=== PATIENT | female | born 1950 | race Caucasian/White ===

== ENCOUNTER 2017-03-13 13:05 | Outpatient (RCR) | payer MEDICARE, SELFPAY ==
[2017-03-13 13:37] VITALS: BP 109/64; PULSE 71; RESP 18; TEMP 36.5
--- NOTE | 2017-03-13 15:35 | PCM.WC.PN ---
(1) Chronic ulcer of left foot with fat layer exposed Status: Chronic Current Visit: Yes Code(s): L97.522 - Non-pressure chronic ulcer of other part of left foot with fat layer exposed (2) Hammer toe of left foot Status: Chronic Current Visit: Yes Code(s): M20.42 - Other hammer toe(s) (acquired), left foot (3) Type 2 diabetes mellitus with diabetic polyneuropathy Status: Chronic Current Visit: Yes Code(s): E11.42 - Type 2 diabetes mellitus with diabetic polyneuropathy (4) Peripheral arterial occlusive disease Status: Chronic Current Visit: Yes Code(s): I77.9 - Disorder of arteries and arterioles, unspecified Type of Wound Date of Service: 03/13/17 Chief Complaint: Left foot ulcers History of Wound: This 67-year-old female with significant past medical history of neuropathy, peripheral vascular disease, history of seizure disorder, on chronic anticoagulation, cerebrovascular disease, hypertension, COPD, history of tobacco use, diabetes, dyslipidemia continues to complain of painful left great toe and fourth toe ulcers. The onset was approximately 3 months ago. This started as a callus and she put a corn pad on. She is applied Santyl and bacitracin to the wound. She is known to Dr. Burgos who is performing some screening tests within the next 3 weeks and intervention is planned for April 03. She has extremely limited perfusion to the foot and has continued ischemic pain that is only partially relieved by dangling the foot. She denies fever, chill, nausea, odor, increased redness to the foot. Medication list albuterol, metoprolol, Pradaxa, gabapentin, trazodone, montelukast, Pulmicort, Ventolin, DuoNeb, prednisone, calcium carbonate, Tylenol, hydralazine, lisinopril, lorazepam, nystatin powder, oxycodone, pantoprazole, MiraLAX. Allergies: Levofloxacin, pineapple, pregabalin, sertraline, Cymbalta, Flexeril, sulfa. Hospitalization/surgical history: Femoral artery surgery with Dr. Velasqeuz, gastrointestinal surgery, appendectomy. Family history diabetes, heart disease, hypertension, lung disease, seizure, stroke. Review of systems: She denies chest pain, calf pain. She reports wound formation, rest paresthesias, claudication, rest pain, skin thickening Progress of Wound: Stable - Physical Exam Vital Signs Temp Pulse Resp BP 97.7 F L 71 18 109/64 03/13/17 13:37 03/13/17 13:37 03/13/17 13:37 03/13/17 13:37 General: Alert, Oriented x3, Cooperative HEENT: Atraumatic Extremities: No cyanosis, No edema, No Calf Tenderness - Negative Shoemaker sign bilateral, Diminished Peripheral Pulses - Nonpalpable pedal pulses bilateral DP and PT, Tenderness - Pain with fourth toe and hallux wound palpation. Diffuse tenderness on palpation to the left forefoot without crepitation. The compartments of bilateral lower extremities remain soft., - - Capillary refill time is less than 4 seconds to all digits of the left foot. Skin: Ulcer/ Wound - No purulence, no erythema, no streaking, no acute infection, no odor left foot, - - The skin is hairless and atrophic. The hallux ulcer site is an eschar that is well adhered without bogginess. The lateral fourth toe ulcer has some eschar formation but approximately 80% of the wound is granular and this has improved since her last hospital admission with reduction of fibrous tissue noted. Wound Measurements and Assessment PAULA - Nurse 1 - General Ulcer Measurement Start: 03/13/17 13:37 Freq: Status: Active Protocol: Activity Type Activity Date Activity User E-Sign Co-Sign Detail Recorded Client Recorded Date Recorded By Document 03/13/17 13:37 [facility] [id number] 03/13/17 13:56 [facility] 03/13/17 13:37 Wound Center Nurse 1 [Ulcer Assessment Protocol: WC.WD.LOC] #2- LT 4TH TOE LATERAL ASPECT -Combined with other wound No -Current Size (cm) - Length 1.2 -Current Size (cm) - Width 1.2 -Current Size (cm) - Depth 0.2 -Total Square Cm 1.44 -Date of Last Picture (Recall this 03/13/17 field) -Photo Taken Yes -Epithelialization None Present -Tunneling No -Undermining/Tunneling No -Exudate Amt None Present (0 %) -Wound Margin Distinct, Outline Attached -Granulation Amt None Present (0 %) -Slough/Fibrin Yes -Necrosis Amt Large (67-100%) -Necrotic Tissue Type Adherent Slough -Structure Exposed N/A -Texture (Libra-wound Skin Appearance) Localized Edema -Moisture (Libra-wound Skin Appearance Maceration ) -Color (Libra-wound Skin Appearance) Erythema -Temperature (Libra-wound Skin No Abnormality Appearance) (Pt Warm) -Tenderness on Palpation (Libra-wound Yes Skin Appearance) -Ulcer Cleansing Rinsed/ Irrigated with Saline -Foul Odor after Cleansing No -Anesthetic Used 5% Lidocaine Gel #1- LT GR TOE MEDIAL ASPECT -Combined with other wound No -Current Size (cm) - Length 0.7 -Current Size (cm) - Width 0.7 -Current Size (cm) - Depth 0.1 -Total Square Cm 0.49 -Date of Last Picture (Recall this 03/13/17 field) -Photo Taken Yes -Epithelialization None Present -Tunneling No -Undermining/Tunneling No -Exudate Amt None Present (0 %) -Exudate Type Serosanguineous -Wound Margin Distinct, Outline Attached -Granulation Amt None Present (0 %) -Slough/Fibrin Yes -Necrosis Amt Large (67-100%) -Necrotic Tissue Type Adherent Slough -Structure Exposed N/A -Texture (Libra-wound Skin Appearance) Assessed Localized Edema -Moisture (Libra-wound Skin Appearance Assessed ) -Color (Libra-wound Skin Appearance) Erythema -Temperature (Libra-wound Skin No Abnormality Appearance) (Pt Warm) -Tenderness on Palpation (Libra-wound Yes Skin Appearance) -Ulcer Cleansing Rinsed/ Irrigated with Saline -Foul Odor after Cleansing No -Anesthetic Used 5% Lidocaine Gel [Edema Assessment] -Lower Limb Edema Present No -Right Calf (cm) 27.3 -Right Ankle (cm) 17.2 -Left Calf (cm) 26.9 -Left Ankle (cm) 17.5 WC - Nurse 2 - General Ulcer CM Notes Start: 03/13/17 13:37 Freq: Status: Active Protocol: Activity Type Activity Date Activity User E-Sign Co-Sign Detail Recorded Client Recorded Date Recorded By Document 03/13/17 14:19 SAMANTA [id number] 03/13/17 14:20 SAMANTA 03/13/17 14:19 Wound Center Nurse 2 [Procedure/Treatment] #2- LT 4TH TOE LATERAL ASPECT -Correct Patient No -Correct Side, Site, Position No -Correct Procedure No -Procedure Performed No #1- LT GR TOE MEDIAL ASPECT -Correct Patient No -Correct Side, Site, Position No -Correct Procedure No -Procedure Performed No [See Physician Procedure note for Specifics] Pain Scale: 0-10 Numeric [Pain] -Is Patient Pain Free? Yes Musculoskeletal: Muscle Wasting, - - Dorsal contraction of all lesser digits of the left foot Neurological: Sensory exam intact to light touch and pain Psych/Mental Status: Normal Affect, Appropriate Debridement Note Post-Debridement Measurements/Treatment WC - Nurse 2 - General Ulcer CM Notes Start: 03/13/17 13:37 Freq: Status: Active Protocol: Activity Type Activity Date Activity User E-Sign Co-Sign Detail Recorded Client Recorded Date Recorded By Document 03/13/17 14:19 JF [id number] 03/13/17 14:20 SAMANTA 03/13/17 14:19 Wound Center Nurse 2 #2- LT 4TH TOE LATERAL ASPECT -Correct Patient No -Correct Side, Site, Position No -Correct Procedure No -Procedure Performed No #1- LT GR TOE MEDIAL ASPECT -Correct Patient No -Correct Side, Site, Position No -Correct Procedure No -Procedure Performed No Pain Scale: 0-10 Numeric Is Patient Pain Free? Yes No debridement was completed today - Due to lack of perfusion debridement was not performed. Assessment/Plan Active Problems Hammer toe of left foot (Chronic) Type 2 diabetes mellitus with diabetic polyneuropathy (Chronic) Peripheral arterial occlusive disease (Chronic) Chronic ulcer of left foot with fat layer exposed (Chronic) Assessment: Left hallux and fourth toe ulcers secondary to arterial disease. Diabetes with neuropathy. Left hammertoes. Malnutrition. Delayed healing Plan: I reviewed and discussed her case. Debridement was not performed due to lack of perfusion. Her noninvasive vascular studies were reviewed including bilateral monophasic waveforms right ankle-brachial index of 0.57 and left ankle-brachial index of 0.34. The toe brachial index on the right foot is 0.23 and it is not able to be calculated on the left lower extremity. She has a follow-up with Dr. Burgos on April 03 for vascular intervention. In the meantime, she has several diagnostic tests to help determine which intervention procedure is most appropriate. She understands she is at risk for continued severe ischemic pain, nonhealing, and even limb loss due to her lack of perfusion. To offload the forefoot by wearing an open toed surgical shoe. She is previously fitted for this. To improve nutritional and healing optimization with nutritional supplementation. She is taking Ensure twice a day and she was advised to continue. To change dressing daily with Santyl. This was performed today. She was reassured there are no signs of acute infection at this time. Serial labs will be monitored. Her most recent labs were from March 06, 2017 with a white blood cell count 7.4 and creatinine 0.46. Full results are in the electronic health record system. To return to clinic at the wound center 1 week or call sooner if she has any questions or concerns. All of her questions were answered.
== END 2017-03-13 23:59 ==
LOC: WC 13:05
PROVIDERS: Family Provider Internal Medicine; PCP Internal Medicine; Visit Provider Podiatrist
DX: E11.621 Type 2 diabetes mellitus with foot ulcer (principal); E11.42 Type 2 diabetes mellitus with diabetic polyneuropathy; E11.51 Type 2 diabetes mellitus with diabetic peripheral angiopathy without gangrene; L97.522 Non-pressure chronic ulcer of other part of left foot with fat layer exposed; M20.42 Other hammer toe(s) (acquired), left foot; G40.909 Epilepsy, unspecified, not intractable, without status epilepticus; Z79.01 Long term (current) use of anticoagulants; I10 Essential (primary) hypertension; J44.9 Chronic obstructive pulmonary disease, unspecified; Z87.891 Personal history of nicotine dependence; E78.5 Hyperlipidemia, unspecified; Z79.899 Other long term (current) drug therapy; Z79.51 Long term (current) use of inhaled steroids; R09.89 Other specified symptoms and signs involving the circulatory and respiratory systems
CPT/HCPCS: 99213; G0463

== ENCOUNTER → 2017-03-22 13:14 | Outpatient (CLI) | payer MEDICARE, SELFPAY ==
[2017-02-24 18:41] VITALS: BP 170/88
[2017-03-20 10:51] VITALS: BP 104/80; BMI 24.7
--- NOTE | 2017-03-22 13:17 | CT_ITS ---
STUDY: CTA OF THE ABDOMINAL AORTA AND BILATERAL LOWER EXTREMITIES REASON FOR EXAM: Female, 67 years old. Left foot ulcers and atherosclerosis. History of diabetes. RADIATION DOSAGE (If Supplied By Facility): CTDIvol = ( 6.92 ) mGy, DLP = ( 837.67 ) mGycm TECHNIQUE: Axial CT angiography multi-detector data acquisition was obtained from the suprarenal abdominal aorta to the following intravenous administration of 100CC ml of Isovue 370 contrast. Axial images and MIP images were reconstructed from the axial data set. Post-processing of the angiographic images was performed, with multiplanar reformation and 3D reconstruction. Individualized dose optimization techniques were used for this CT. TECHNICAL QUALITY: Good COMPARISON: None. Descriptors of Narrowing: None (0%) Mild (< 50%) Moderate (50-70%) Severe (70-90%) Subtotal/Total Occlusion (90-100%) Non-Evaluable (technically non-diagnostic FINDINGS: Abdominal aorta: There is moderate diffuse narrowing. There is a stent extending from the distal abdominal aorta to the iliac arteries bilaterally. Celiac and superior mesenteric arteries: Presence of stent at the origin of the celiac or superior mesenteric artery partially visualized on this exam. Inferior mesenteric artery: No demonstrated narrowing. Right renal artery(arteries): Narrowing at its origin. Left renal artery(arteries): Presence of stent at this origin. Right common iliac artery: Stent extending from the distal abdominal aorta to the right common femoral artery. Moderate stenosis proximally. Right external iliac artery: There is moderate diffuse narrowing. Right internal iliac artery: There is moderate diffuse narrowing. Left common iliac artery: Stent extending from the distal abdominal aorta to the left common femoral artery. Left external iliac artery: There is moderate diffuse narrowing. Left internal iliac artery: There is moderate diffuse narrowing with calcifications. RIGHT LOWER EXTREMITY Right common femoral artery: No demonstrated narrowing. Right profundus femoris: No demonstrated narrowing. Right superficial femoral: Mild narrowing at its origin. Otherwise no flow-limiting stenosis is seen. Right popliteal artery: Well-visualized due to severe artifacts from total knee prosthesis but there is probable moderate narrowing. Right tibioperoneal trunk: Suboptimally visualized due to presence of artifacts. Right anterior tibial artery: There is moderate diffuse narrowing, with visualization of the vessel to the distal calf. Right posterior tibial artery: There is moderate diffuse narrowing, with visualization of the vessel to the distal calf. Right peroneal artery: There is moderate diffuse narrowing, with visualization of the vessel to the distal calf. LEFT LOWER EXTREMITY Left common femoral artery: No demonstrated narrowing. Left profundus femoris: No demonstrated narrowing. Left superficial femoral: Occlusion at this distal aspect of the graft however its reconstituted immediately to the level of the adductus canal. Distal to this region, there appears to be collateral arteries extending to the popliteal artery. Left popliteal artery: Not visualized appears to be occluded Left tibioperoneal trunk: There is moderate diffuse narrowing with scattered calcifications. Left anterior tibial artery: There is moderate diffuse narrowing, with visualization of the vessel to the distal calf with scattered calcifications. Left posterior tibial artery: There is moderate diffuse narrowing, with visualization of the vessel to the distal calf. Left peroneal artery: There is moderate diffuse narrowing, with visualization of the vessel to the distal calf. There are nonspecific fluid-filled small bowel loops. CT/CTA Abd w/Runoff W/WO Contrast IMPRESSION: Extensive atherosclerotic calcifications in the distal abdominal aorta extending to the common iliac arteries. Presence of stents stenting from the distal abdominal aorta to the common femoral arteries bilaterally as described above. Patent right superficial femoral artery to the level of the popliteal artery with scattered areas of moderate stenosis at calcifications below the level of the popliteal artery as described above. The distal left superficial femoral artery at the level of the ductus canal is not definitely identified however it appears to be reconstituted distally with moderate stenosis at calcifications below the level of the knee. Electronically Signed: Neftali Ro MD at 14:54 EST Tel , Service support ,
== END ==
PROVIDERS: Family Provider Internal Medicine; PCP Internal Medicine; Visit Provider Surgery Vascular Surgery
DX: I70.245 Atherosclerosis of native arteries of left leg with ulceration of other part of foot (principal)
CPT/HCPCS: 75635; Q9967; A4216

== ENCOUNTER → 2017-04-05 09:56 | Day surgery (SDC) | payer MEDICARE, SELFPAY ==
[2017-04-04 13:56] VITALS: BMI 23.8
[2017-04-05 10:12] LABS: Hematocrit 32.2 % (37-47); Hemoglobin 10.5 g/dl (12.0-15.0); Mean Corp Hgb Conc 32.6 g/gl (32-36); Mean Corpuscular Hgb 29.7 pg (27.0-32.0); Mean Platelet Vol. 8.6 fl (6.2-12.0); Platelet Count 257 K/mm3 (150-450); RBC Distribution Width CV 14.9 % (11.6-14.6); RBC Distribution Width SD 48.6 fl (35.1-43.9); Red Blood Count 3.54 M/mm3 (4.2-5.4); White Blood Count 4.7 K/mm3 (4.4-11.0)
[2017-04-05 10:13] LABS: Scan Indicated on CBC? Y/N NO
[2017-04-05 10:18] LABS: Prothrombin Time (Protime)PT. 13.1 SECONDS (11.7-14.9)
[2017-04-05 10:19] LABS: Partial Thromboplast Time 31.6 Seconds (24.1-36.2)
[2017-04-05 10:25] LABS: Albumin, Serum 3.4 g/dL (3.2-5.0); BUN 8 mg/dL (7-18); BUN/Creat Ratio 13.9 RATIO (10-20); Calcium,Total 8.9 mg/dL (8.5-10.1); Chloride 95 mmol/L (98-107); Creatinine, Serum 0.58 mg/dL (0.55-1.02); EST Glomerular Filtration Rate 112 mL/min (>60); Est Glom Filt Rate - Afr Amer 135 mL/min (>60); Estimated Creatinine Clearance 76.17 ml/min; Glucose 82 mg/dL (74-106); Potassium 4.5 mmol/L (3.5-5.1); Sodium Level 130 mmol/L (136-145)
--- NOTE | 2017-04-05 13:11 | PCM.OPRPT ---
Problem List (1) Peripheral arterial occlusive disease Status: Chronic (2) Foot ulcer, left Status: Acute (3) Type 2 diabetes mellitus with diabetic polyneuropathy Status: Chronic (4) Chronic ulcer of left foot with fat layer exposed Status: Acute (5) Other specified peripheral vascular diseases Status: Chronic Report of Operation Date of Procedure: 04/05/17 Pre-Operative Diagnosis: PAD with ulcer left foot Post-Operative Diagnosis: Same Surgery/Procedure Performed:: 1. Ultrasound-guided access retrograde left brachial artery. #2 left subclavian and arch aortogram. #3 infrarenal aortogram with left lower extremity angiogram with catheter placed in the common femoral artery. Type of Anesthesia:: Sedation,Conscious Description of Procedure: Patient brought to the [employer]. Underwent the appropriate timeout consent. Underwent conscious sedation. Prepped and draped in a sterile fashion. We did also get access retrograde left brachial artery. Put in a Glidewire then short 5 Dutch sheath trying to get the wire down the descending thoracic aorta cannot get it to go retrograde back we then did an angiogram from the left subclavian showing count of the posterior angulation of the arch we then get the wire down through here brought in a Kumpe catheter over this brought up to the distal aorta. We did aortogram with imaging showing both iliac stents throughout were widely patent. There is good flow into the common femoral artery into very large profunda. We then cut the catheter down to the common femoral artery image from here from the knee down shown extensive collaterals over filling the anterior tib in the upper part of the calf with good flow down into the foot. This appear to be the main runoff. We then removed out the catheter and sheath held pressure with good hemostasis she tolerated this well was brought to recovery in stable condition Plan: We will get cardiac clearance. We will then plan a redo left femoral or left profunda to mid anterior tibial artery bypass with a cadaver vein.
[2017-04-05 14:24] VITALS: PULSE 92; RESP 14
[2017-04-05] MEDS: Ipratropium/Albuterol Sulfate 3 ML AMPUL.NEB INHALATION (14:27)
== END ==
PROVIDERS: Family Provider Internal Medicine; PCP Internal Medicine; Visit Provider Surgery Vascular Surgery
DX: I70.245 Atherosclerosis of native arteries of left leg with ulceration of other part of foot (principal); L97.522 Non-pressure chronic ulcer of other part of left foot with fat layer exposed; E11.42 Type 2 diabetes mellitus with diabetic polyneuropathy; I73.89 Other specified peripheral vascular diseases; Z86.73 Personal history of transient ischemic attack (TIA), and cerebral infarction without residual deficits; Z87.09 Personal history of other diseases of the respiratory system; Z99.81 Dependence on supplemental oxygen; Z87.891 Personal history of nicotine dependence; I10 Essential (primary) hypertension; E11.59 Type 2 diabetes mellitus with other circulatory complications; D64.9 Anemia, unspecified; M19.90 Unspecified osteoarthritis, unspecified site; N32.9 Bladder disorder, unspecified; K21.9 Gastro-esophageal reflux disease without esophagitis; G40.909 Epilepsy, unspecified, not intractable, without status epilepticus; F41.9 Anxiety disorder, unspecified; J44.9 Chronic obstructive pulmonary disease, unspecified; M81.0 Age-related osteoporosis without current pathological fracture; E78.5 Hyperlipidemia, unspecified; K59.00 Constipation, unspecified; Z90.89 Acquired absence of other organs; Z90.710 Acquired absence of both cervix and uterus; Z79.899 Other long term (current) drug therapy; R06.02 Shortness of breath
CPT/HCPCS: 36200; 36245; 36415; 75625; 75710; 76937; 80069; 85027; 85610; 85730; 94640; 99152; J7040; Q9967; C1769

== ENCOUNTER 2017-04-10 10:30 | Outpatient (RCR) | payer MEDICARE, SELFPAY ==
[2017-02-24 18:41] VITALS: BP 170/88
[2017-02-26 21:42] VITALS: BMI 24.7
[2017-03-13 13:37] VITALS: BP 109/64
[2017-03-14 01:22] VITALS: PULSE 71; RESP 18; TEMP 36.5
[2017-03-20 10:51] VITALS: BP 104/80; PULSE 47; RESP 18; TEMP 36.9; BMI 24.7
--- NOTE | 2017-03-20 12:17 | PN.PCM_ITS ---
(1) Chronic ulcer of left foot with fat layer exposed Status: Chronic Current Visit: Yes Code(s): L97.522 - Non-pressure chronic ulcer of other part of left foot with fat layer exposed (2) Peripheral arterial occlusive disease Status: Chronic Current Visit: Yes Code(s): I77.9 - Disorder of arteries and arterioles, unspecified (3) Type 2 diabetes mellitus with diabetic polyneuropathy Status: Chronic Current Visit: Yes Code(s): E11.42 - Type 2 diabetes mellitus with diabetic polyneuropathy Type of Wound Date of Service: 03/20/17 Chief Complaint: Left foot ulcers History of Wound: This 67-year-old female with significant past medical history of neuropathy, peripheral vascular disease, history of seizure disorder, on chronic anticoagulation, cerebrovascular disease, hypertension, COPD, history of tobacco use, diabetes, dyslipidemia continues to complain of painful left great toe and fourth toe ulcers. He continues to Santyl. She is known to Dr. Burgos who is performing some screening tests within the next 3 weeks and intervention is planned for April 03. She is scheduled for a CT abdominal scan this upcoming Saturday and will also see her primary care physician, Dr. Jonas tomorrow for clearance. She has extremely limited perfusion to the foot and has continued ischemic pain that is only partially relieved by dangling the foot. She denies fever, chill, nausea, odor, increased redness to the foot. Progress of Wound: Stable - Physical Exam Vital Signs Temp Pulse Resp BP 98.4 F 47 L 18 104/80 03/20/17 10:51 03/20/17 10:51 03/20/17 10:51 03/20/17 10:51 General: Alert, Oriented x3, Cooperative Extremities: No cyanosis, No edema, No Calf Tenderness - Negative Beverley and Shoemaker sign bilateral, Diminished Peripheral Pulses, - - Delayed capillary refill time to the fourth left toe less than 4 seconds Skin: Ulcer/ Wound - There is decreased eschar to the medial left hallux and lateral left fourth toe ulcers with mainly fibrous tissue. There is no exposed bone or tendon. The forefoot is ruborous. There is no erythema streaking or acute infection locally. There is no odor. The skin is atrophic and hairless left Wound Measurements and Assessment WC - Nurse 1 - General Ulcer Measurement Start: 03/20/17 10:50 Freq: Status: Active Protocol: Activity Type Activity Date Activity User E-Sign Co-Sign Detail Recorded Client Recorded Date Recorded By Document 03/20/17 10:51 MW [id number] 03/20/17 10:59 MW 03/20/17 10:51 Wound Center Nurse 1 [Ulcer Assessment Protocol: WC.WD.LOC] #2- LT 4TH TOE LATERAL ASPECT -Combined with other wound No -Current Size (cm) - Length 1.4 -Current Size (cm) - Width 1.2 -Current Size (cm) - Depth 0.1 -Total Square Cm 1.68 -Photo Taken No -Epithelialization None Present -Tunneling No -Undermining/Tunneling No -Circular Undermining No -Exudate Amt Small (1-33%) -Exudate Type Serosanguineous -Wound Margin Flat & Intact -Granulation Amt Small (1-33%) -Granulation Quality [place] -Slough/Fibrin Yes -Necrosis Amt Large (67-100%) -Necrotic Tissue Type Adherent Slough -Structure Exposed N/A -Texture (Libra-wound Skin Appearance) No Abnormality Assessed -Moisture (Libra-wound Skin Appearance Assessed ) Dry/Scaly -Color (Libra-wound Skin Appearance) Assessed Erythema -Temperature (Libra-wound Skin No Abnormality Appearance) (Pt Warm) -Tenderness on Palpation (Libra-wound Yes Skin Appearance) -Ulcer Cleansing Rinsed/ Irrigated with Saline -Foul Odor after Cleansing No -Anesthetic Used 4% Lidocaine Solution #1- LT GR TOE MEDIAL ASPECT -Combined with other wound No -Current Size (cm) - Length 0.6 -Current Size (cm) - Width 0.6 -Current Size (cm) - Depth 0.1 -Total Square Cm 0.36 -Photo Taken No -Epithelialization None Present -Tunneling No -Undermining/Tunneling No -Circular Undermining No -Exudate Amt Small (1-33%) -Exudate Type Serosanguineous -Wound Margin Flat & Intact -Granulation Amt None Present (0 %) -Granulation Quality N/A -Slough/Fibrin Yes -Necrosis Amt Large (67-100%) -Necrotic Tissue Type Adherent Slough -Structure Exposed N/A -Texture (Libra-wound Skin Appearance) Assessed -Moisture (Libra-wound Skin Appearance No Abnormality ) Assessed -Color (Libra-wound Skin Appearance) Assessed Erythema -Temperature (Libra-wound Skin No Abnormality Appearance) (Pt Warm) -Tenderness on Palpation (Libra-wound Yes Skin Appearance) -Ulcer Cleansing Rinsed/ Irrigated with Saline -Foul Odor after Cleansing No -Anesthetic Used 4% Lidocaine Solution [Edema Assessment] -Lower Limb Edema Present No WC - Nurse 2 - General Ulcer CM Notes Start: 03/20/17 10:50 Freq: Status: Active Protocol: Activity Type Activity Date Activity User E-Sign Co-Sign Detail Recorded Client Recorded Date Recorded By Document 03/20/17 11:22 [id number] 03/20/17 11:24 03/20/17 11:22 Wound Center Nurse 2 [Procedure/Treatment] #2- LT 4TH TOE LATERAL ASPECT -Time 11:22 -Correct Patient Yes -Correct Side, Site, Position Yes -Correct Procedure Yes -Procedure Performed Yes -Type of Procedure Debridement -Clinical Debridement Subcutaneous -Post Debridement Size (cm) - Length 1.5 -Post Debridement Size (cm) - Width 1.3 -Post Debridement Size (cm) - Depth 0.1 -Total Square Cm 1.95 -Wound/Ulcer Outcome Not Healed -Ulcer Cleansing Rinsed/ Irrigated with Saline -Foul Odor after Cleansing No -Bioengineered Tissue No -Bleeding Controlled with Pressure -Treatment Response Procedure Tolerated Well #1- LT GR TOE MEDIAL ASPECT -Time 11:23 -Correct Patient Yes -Correct Side, Site, Position Yes -Correct Procedure Yes -Procedure Performed Yes -Type of Procedure Debridement -Clinical Debridement Subcutaneous -Post Debridement Size (cm) - Length 0.7 -Post Debridement Size (cm) - Width 0.7 -Post Debridement Size (cm) - Depth 0.1 -Total Square Cm 0.49 -Wound/Ulcer Outcome Not Healed -Ulcer Cleansing Rinsed/ Irrigated with Saline -Foul Odor after Cleansing No -Bioengineered Tissue No -Bleeding Controlled with Pressure -Treatment Response Procedure Tolerated Well [See Physician Procedure note for Specifics] Pain Scale: 0-10 Numeric [Pain] -Is Patient Pain Free? Yes Musculoskeletal: No Tenderness to Palpation of Joints or Extremities, Muscle Wasting, - - Digital contraction of lesser toes the left foot Neurological: Sensory exam intact to light touch and pain Psych/Mental Status: Normal Affect, Appropriate Debridement Note Post-Debridement Measurements/Treatment WC - Nurse 2 - General Ulcer CM Notes Start: 02/07/18 10:50 Freq: Status: Active Protocol: Activity Type Activity Date Activity User E-Sign Co-Sign Detail Recorded Client Recorded Date Recorded By Document 03/20/17 11:22 [id number] 03/20/17 11:24 03/20/17 11:22 Wound Center Nurse 2 #2- LT 4TH TOE LATERAL ASPECT -Time 11:22 -Correct Patient Yes -Correct Side, Site, Position Yes -Correct Procedure Yes -Procedure Performed Yes -Type of Procedure Debridement -Clinical Debridement Subcutaneous -Post Debridement Size (cm) - Length 1.5 -Post Debridement Size (cm) - Width 1.3 -Post Debridement Size (cm) - Depth 0.1 -Total Square Cm 1.95 -Wound/Ulcer Outcome Not Healed -Ulcer Cleansing Rinsed/ Irrigated with Saline -Foul Odor after Cleansing No -Bioengineered Tissue No -Bleeding Controlled with Pressure -Treatment Response Procedure Tolerated Well #1- LT GR TOE MEDIAL ASPECT -Time 11:23 -Correct Patient Yes -Correct Side, Site, Position Yes -Correct Procedure Yes -Procedure Performed Yes -Type of Procedure Debridement -Clinical Debridement Subcutaneous -Post Debridement Size (cm) - Length 0.7 -Post Debridement Size (cm) - Width 0.7 -Post Debridement Size (cm) - Depth 0.1 -Total Square Cm 0.49 -Wound/Ulcer Outcome Not Healed -Ulcer Cleansing Rinsed/ Irrigated with Saline -Foul Odor after Cleansing No -Bioengineered Tissue No -Bleeding Controlled with Pressure -Treatment Response Procedure Tolerated Well Pain Scale: 0-10 Numeric Is Patient Pain Free? Yes No debridement was completed today - Significant lack of blood flow is noted and no debridement was performed today Assessment/Plan Active Problems Chronic ulcer of left foot with fat layer exposed (Chronic) Peripheral arterial occlusive disease (Chronic) Type 2 diabetes mellitus with diabetic polyneuropathy (Chronic) Assessment: Left hallux and fourth toe ulcers secondary to arterial disease. Diabetes with neuropathy. Left hammertoes. Malnutrition. Delayed healing Plan: I reviewed and discussed her case. Debridement was not performed due to lack of perfusion. Her noninvasive vascular studies were reviewed including bilateral monophasic waveforms right ankle-brachial index of 0.57 and left ankle -brachial index of 0.34. The toe brachial index on the right foot is 0.23 and it is not able to be calculated on the left lower extremity. She has a follow- up with Dr. Burgos on April 03 for vascular intervention. In the meantime, she has several diagnostic tests to help determine which intervention procedure is most appropriate. She has a CT for the abdomen scheduled for this Saturday. I reviewed Dr. Burgos's most recent note which confirms this plan. She is seeing her primary care physician tomorrow for surgical clearance advised her to keep his appointment. She understands she is at risk for continued severe ischemic pain, nonhealing, and even limb loss due to her lack of perfusion. To offload the forefoot by wearing an open toed surgical shoe. She is previously fitted for this. To take caution with the cold weather outside to avoid frostbite or other cold injuries. To improve nutritional and healing optimization with nutritional supplementation. She is taking Ensure twice a day and she was advised to continue. To change dressing daily with Santyl. She is doing well with this plan at this time. This was performed today. She was reassured there are no signs of acute infection at this time. Serial labs will be monitored. Her most recent labs were from March 06, 2017 with a white blood cell count 7.4 and creatinine 0.46. To return to clinic at the wound center 1 week or call sooner if she has any questions or concerns. All of her questions were answered.
[2017-04-03 10:43] VITALS: BP 155/107; PULSE 82; RESP 20; TEMP 37.2; BMI 24.7
--- NOTE | 2017-04-03 13:18 | PN.PCM_ITS ---
(1) Chronic ulcer of left foot with fat layer exposed Status: Chronic Current Visit: Yes Code(s): L97.522 - Non-pressure chronic ulcer of other part of left foot with fat layer exposed (2) Peripheral arterial occlusive disease Status: Chronic Current Visit: Yes Code(s): I77.9 - Disorder of arteries and arterioles, unspecified (3) Type 2 diabetes mellitus with diabetic polyneuropathy Status: Chronic Current Visit: Yes Code(s): E11.42 - Type 2 diabetes mellitus with diabetic polyneuropathy Type of Wound Date of Service: 04/03/17 Chief Complaint: Left foot ulcers with new wound to fifth toe History of Wound: This 67-year-old female with significant past medical history of neuropathy, peripheral vascular disease, history of seizure disorder, on chronic anticoagulation, cerebrovascular disease, hypertension, COPD, history of tobacco use, diabetes, dyslipidemia continues to complain of painful left great toe and fourth toe ulcers. sHe continues to Santyl. She is known to Dr. Burgos who is performing some screening tests which did not demonstrate perfusion opportunities to the entire left lower extremity. An additional test will be implemented to see if there are any additional options. She understands she is high risk for limb loss. She denies fever, chill, nausea, odor, increased redness to the foot. Progress of Wound: Stable. New wound to fifth toe - Physical Exam Vital Signs Temp Pulse Resp BP 98.9 F 82 20 H 155/107 H 04/03/17 10:43 04/03/17 10:43 04/03/17 10:43 04/03/17 10:43 General: Alert, Cooperative Extremities: No cyanosis, No edema, No Calf Tenderness, Diminished Peripheral Pulses, Tenderness - Wound palpation, - - Delayed capillary fill time less than 4 seconds to digits of the left foot Skin: Ulcer/ Wound - No purulence, no erythema, no streaking, no infection left foot. There is a new fibrous base small wound to the distal medial aspect of the left fifth toe. Her skin is hairless and atrophic bilateral lower extremities. Wound Measurements and Assessment WC - Nurse 1 - General Ulcer Measurement Start: 03/20/17 10:50 Freq: Status: Active Protocol: Activity Type Activity Date Activity User E-Sign Co-Sign Detail Recorded Client Recorded Date Recorded By Document 04/03/17 10:43 DL [id number] 04/03/17 10:55 DL 04/03/17 10:43 Wound Center Nurse 1 [Ulcer Assessment] #3 Med 5th toe -Current Size (cm) - Length 0.2 -Current Size (cm) - Width 0.3 -Current Size (cm) - Depth 0.1 -Total Square Cm 0.06 -Photo Taken Yes -Classification - Thickness Unclassifiable (Eschar Covered ) -Exudate Amt None Present (0 %) -Wound Margin Flat & Intact -Granulation Amt None Present (0 %) -Necrosis Amt Large (67-100%) -Necrotic Tissue Type Adherent Slough -Structure Exposed N/A -Texture (Libra-wound Skin Appearance) No Abnormality -Moisture (Libra-wound Skin Appearance No Abnormality ) -Color (Libra-wound Skin Appearance) Erythema -Temperature (Libra-wound Skin No Abnormality Appearance) (Pt Warm) -Ulcer Cleansing Rinsed/ Irrigated with Saline -Foul Odor after Cleansing No -Anesthetic Used 4% Lidocaine Solution #2- LT 4TH TOE LATERAL ASPECT -Current Size (cm) - Length 1.8 -Current Size (cm) - Width 0.8 -Current Size (cm) - Depth 0.1 -Total Square Cm 1.44 -Photo Taken No -Exudate Amt Small (1-33%) -Exudate Type Serosanguineous -Wound Margin Distinct, Outline Attached -Granulation Amt None Present (0 %) -Necrosis Amt Large (67-100%) -Necrotic Tissue Type Adherent Slough -Structure Exposed N/A -Texture (Libra-wound Skin Appearance) Localized Edema -Moisture (Libra-wound Skin Appearance No Abnormality ) -Color (Libra-wound Skin Appearance) Erythema -Temperature (Libra-wound Skin No Abnormality Appearance) (Pt Warm) -Tenderness on Palpation (Libra-wound No Skin Appearance) -Ulcer Cleansing Rinsed/ Irrigated with Saline -Foul Odor after Cleansing Yes -Anesthetic Used 4% Lidocaine Solution #1- LT GR TOE MEDIAL ASPECT -Current Size (cm) - Length 0.7 -Current Size (cm) - Width 0.6 -Current Size (cm) - Depth 0.1 -Total Square Cm 0.42 -Photo Taken No -Exudate Amt Small (1-33%) -Exudate Type Serosanguineous -Wound Margin Distinct, Outline Attached -Granulation Amt None Present (0 %) -Necrosis Amt Large (67-100%) -Necrotic Tissue Type Adherent Slough -Structure Exposed N/A -Texture (Libra-wound Skin Appearance) No Abnormality -Moisture (Libra-wound Skin Appearance No Abnormality ) -Color (Libra-wound Skin Appearance) Erythema -Temperature (Libra-wound Skin No Abnormality Appearance) (Pt Warm) -Tenderness on Palpation (Libra-wound No Skin Appearance) -Ulcer Cleansing Rinsed/ Irrigated with Saline -Foul Odor after Cleansing No -Anesthetic Used 4% Lidocaine Solution WC - Nurse 2 - General Ulcer CM Notes Start: 03/20/17 10:50 Freq: Status: Active Protocol: Activity Type Activity Date Activity User E-Sign Co-Sign Detail Recorded Client Recorded Date Recorded By Document 04/03/17 11:06 [id number] 04/03/17 11:15 04/03/17 11:06 Wound Center Nurse 2 [Procedure/Treatment] #3 Med 5th toe -Time 11:13 -Correct Patient Yes -Correct Side, Site, Position Yes -Correct Procedure Yes -Procedure Performed Yes -Post Debridement Size (cm) - Length 0.2 -Post Debridement Size (cm) - Width 0.3 -Post Debridement Size (cm) - Depth 0.1 -Total Square Cm 0.06 -Wound/Ulcer Outcome Not Healed -Ulcer Cleansing Rinsed/ Irrigated with Saline -Foul Odor after Cleansing No -Bioengineered Tissue No -Bleeding Controlled with NA -Other No debridement today -Treatment Response Procedure Tolerated Well #2- LT 4TH TOE LATERAL ASPECT -Time 11:14 -Correct Patient Yes -Correct Side, Site, Position Yes -Correct Procedure Yes -Procedure Performed Yes -Post Debridement Size (cm) - Length 1.8 -Post Debridement Size (cm) - Width 0.8 -Post Debridement Size (cm) - Depth 0.1 -Total Square Cm 1.44 -Wound/Ulcer Outcome Not Healed -Ulcer Cleansing Rinsed/ Irrigated with Saline -Foul Odor after Cleansing No -Bioengineered Tissue No -Bleeding Controlled with NA -Other No debridement today -Treatment Response Procedure Tolerated Well #1- LT GR TOE MEDIAL ASPECT -Time 11:14 -Correct Patient Yes -Correct Side, Site, Position Yes -Correct Procedure Yes -Procedure Performed Yes -Post Debridement Size (cm) - Length 0.7 -Post Debridement Size (cm) - Width 0.6 -Post Debridement Size (cm) - Depth 0.1 -Total Square Cm 0.42 -Wound/Ulcer Outcome Not Healed -Ulcer Cleansing Rinsed/ Irrigated with Saline -Foul Odor after Cleansing No -Bioengineered Tissue No -Bleeding Controlled with NA -Other No debridement today -Treatment Response Procedure Tolerated Well [See Physician Procedure note for Specifics] Pain Scale: 0-10 Numeric [Pain] -Is Patient Pain Free? Yes Musculoskeletal: No Tenderness to Palpation of Joints or Extremities, Muscle Wasting, - - Varus rotation of fourth toe abuts fifth toe Neurological: Sensory exam intact to light touch and pain Psych/Mental Status: Normal Affect, Appropriate Debridement Note Post-Debridement Measurements/Treatment WC - Nurse 2 - General Ulcer CM Notes Start: 03/20/17 10:50 Freq: Status: Active Protocol: Activity Type Activity Date Activity User E-Sign Co-Sign Detail Recorded Client Recorded Date Recorded By Document 03/20/17 11:22 TM [id number] 03/20/17 11:24 TM Document 04/03/17 11:06 TM [id number] 04/03/17 11:15 TM 03/20/17 04/03/17 11:22 11:06 Wound Center Nurse 2 #3 Med 5th toe -Time 11:13 -Correct Patient Yes -Correct Side, Site, Position Yes -Correct Procedure Yes -Procedure Performed Yes -Post Debridement Size (cm) - Length 0.2 -Post Debridement Size (cm) - Width 0.3 -Post Debridement Size (cm) - Depth 0.1 -Total Square Cm 0.06 -Wound/Ulcer Outcome Not Healed -Ulcer Cleansing Rinsed/ Irrigated with Saline -Foul Odor after Cleansing No -Bioengineered Tissue No -Bleeding Controlled with NA -Other No debridement today -Treatment Response Procedure Tolerated Well #2- LT 4TH TOE LATERAL ASPECT -Time 11:22 11:14 -Correct Patient Yes Yes -Correct Side, Site, Position Yes Yes -Correct Procedure Yes Yes -Procedure Performed Yes Yes -Type of Procedure Debridement -Clinical Debridement Subcutaneous -Post Debridement Size (cm) - Length 1.5 1.8 -Post Debridement Size (cm) - Width 1.3 0.8 -Post Debridement Size (cm) - Depth 0.1 0.1 -Total Square Cm 1.95 1.44 -Wound/Ulcer Outcome Not Healed Not Healed -Ulcer Cleansing Rinsed/ Rinsed/ Irrigated with Irrigated with Saline Saline -Foul Odor after Cleansing No No -Bioengineered Tissue No No -Bleeding Controlled with Pressure NA -Other No debridement today -Treatment Response Procedure Procedure Tolerated Well Tolerated Well #1- LT GR TOE MEDIAL ASPECT -Time 11:23 11:14 -Correct Patient Yes Yes -Correct Side, Site, Position Yes Yes -Correct Procedure Yes Yes -Procedure Performed Yes Yes -Type of Procedure Debridement -Clinical Debridement Subcutaneous -Post Debridement Size (cm) - Length 0.7 0.7 -Post Debridement Size (cm) - Width 0.7 0.6 -Post Debridement Size (cm) - Depth 0.1 0.1 -Total Square Cm 0.49 0.42 -Wound/Ulcer Outcome Not Healed Not Healed -Ulcer Cleansing Rinsed/ Rinsed/ Irrigated with Irrigated with Saline Saline -Foul Odor after Cleansing No No -Bioengineered Tissue No No -Bleeding Controlled with Pressure NA -Other No debridement today -Treatment Response Procedure Procedure Tolerated Well Tolerated Well Pain Scale: 0-10 Numeric Is Patient Pain Free? Yes Yes No debridement was completed today - She does not have appropriate arterial perfusion to sustain debridements Assessment/Plan Active Problems Chronic ulcer of left foot with fat layer exposed (Chronic) Peripheral arterial occlusive disease (Chronic) Type 2 diabetes mellitus with diabetic polyneuropathy (Chronic) Assessment: Left hallux and fourth toe ulcers secondary to arterial disease. New ulcer left fifth toe. No infection. Diabetes with neuropathy. Left hammertoes. Malnutrition. Delayed healing Plan: I reviewed and discussed her case. Debridement was not performed due to lack of perfusion. Her noninvasive vascular studies were reviewed including bilateral monophasic waveforms right ankle-brachial index of 0.57 and left ankle -brachial index of 0.34. The toe brachial index on the right foot is 0.23 and it is not able to be calculated on the left lower extremity. She has a follow- up with Dr. Burgos for additional workup to see if any intervention is possible. She understands she is high risk for limb loss and amputation. To offload the forefoot by wearing an open toed surgical shoe. She is previously fitted for this. To take caution with the cold weather outside to avoid frostbite or other cold injuries. To improve nutritional and healing optimization with nutritional supplementation. She is taking Ensure twice a day and she was advised to continue. To change dressing daily with Santyl. She is doing well with this plan at this time. This was performed today. She was reassured there are no signs of acute infection at this time. Serial labs will be monitored. Her most recent labs were from March 06, 2017 with a white blood cell count 7.4 and creatinine 0.46. To return to clinic at the wound center 1 week or call sooner if she has any questions or concerns. All of her questions were answered.
[2017-04-10 11:47] VITALS: BP 137/66; PULSE 70; RESP 18; TEMP 35.4; BMI 24.7
--- NOTE | 2017-04-10 12:01 | PN.PCM_ITS ---
(1) Chronic ulcer of left foot with fat layer exposed Status: Chronic Current Visit: Yes Code(s): L97.522 - Non-pressure chronic ulcer of other part of left foot with fat layer exposed (2) Peripheral arterial occlusive disease Status: Chronic Current Visit: Yes Code(s): I77.9 - Disorder of arteries and arterioles, unspecified (3) Type 2 diabetes mellitus with diabetic polyneuropathy Status: Chronic Current Visit: Yes Code(s): E11.42 - Type 2 diabetes mellitus with diabetic polyneuropathy Type of Wound Date of Service: 04/10/17 Chief Complaint: Left foot ulcers History of Wound: This 67-year-old female with significant past medical history of neuropathy, peripheral vascular disease, history of seizure disorder, on chronic anticoagulation, cerebrovascular disease, hypertension, COPD, history of tobacco use, diabetes, dyslipidemia continues to complain of painful left great toe and fourth and fifth toe ulcers. She continues to use Santyl. She is known to Dr. Burgos who is performing some screening tests which did not demonstrate perfusion opportunities to the entire left lower extremity. An additional test will be implemented to see if there are any additional options. This test was completed and a major reconstructive surgery is planned with a cadaveric vein. Surgical scheduling is pending her cardiac clearance; she has a set up for next week. She understands she is high risk for limb loss. She denies fever, chill, nausea, odor, increased redness to the foot. Progress of Wound: Stable - Physical Exam Vital Signs Temp Pulse Resp BP 98.9 F 82 20 H 155/107 H 04/03/17 10:43 04/03/17 10:43 04/03/17 10:43 04/03/17 10:43 General: Alert, Oriented x3, Cooperative Extremities: No cyanosis, Diminished Peripheral Pulses, Edema, - - Capillary fill time delayed to 4 seconds left foot Skin: Ulcer/ Wound - No purulence, erythema, streaking, no odor. The wounds are fibrous and with eschar. The peripheral skin is atrophic and hairless. Musculoskeletal: No Tenderness to Palpation of Joints or Extremities, Muscle Wasting, - - Dorsal contraction of lesser digits Neurological: Sensory exam intact to light touch and pain Psych/Mental Status: Normal Affect, Appropriate Debridement Note Post-Debridement Measurements/Treatment WC - Nurse 2 - General Ulcer CM Notes Start: 03/20/17 10:50 Freq: Status: Active Protocol: Activity Type Activity Date Activity User E-Sign Co-Sign Detail Recorded Client Recorded Date Recorded By Document 03/20/17 11:22 TM [id number] 03/20/17 11:24 TM Document 04/03/17 11:06 TM [id number] 04/03/17 11:15 TM 03/20/17 04/03/17 11:22 11:06 Wound Center Nurse 2 #3 Med 5th toe -Time 11:13 -Correct Patient Yes -Correct Side, Site, Position Yes -Correct Procedure Yes -Procedure Performed Yes -Post Debridement Size (cm) - Length 0.2 -Post Debridement Size (cm) - Width 0.3 -Post Debridement Size (cm) - Depth 0.1 -Total Square Cm 0.06 -Wound/Ulcer Outcome Not Healed -Ulcer Cleansing Rinsed/ Irrigated with Saline -Foul Odor after Cleansing No -Bioengineered Tissue No -Bleeding Controlled with NA -Other No debridement today -Treatment Response Procedure Tolerated Well #2- LT 4TH TOE LATERAL ASPECT -Time 11:22 11:14 -Correct Patient Yes Yes -Correct Side, Site, Position Yes Yes -Correct Procedure Yes Yes -Procedure Performed Yes Yes -Type of Procedure Debridement -Clinical Debridement Subcutaneous -Post Debridement Size (cm) - Length 1.5 1.8 -Post Debridement Size (cm) - Width 1.3 0.8 -Post Debridement Size (cm) - Depth 0.1 0.1 -Total Square Cm 1.95 1.44 -Wound/Ulcer Outcome Not Healed Not Healed -Ulcer Cleansing Rinsed/ Rinsed/ Irrigated with Irrigated with Saline Saline -Foul Odor after Cleansing No No -Bioengineered Tissue No No -Bleeding Controlled with Pressure NA -Other No debridement today -Treatment Response Procedure Procedure Tolerated Well Tolerated Well #1- LT GR TOE MEDIAL ASPECT -Time 11:23 11:14 -Correct Patient Yes Yes -Correct Side, Site, Position Yes Yes -Correct Procedure Yes Yes -Procedure Performed Yes Yes -Type of Procedure Debridement -Clinical Debridement Subcutaneous -Post Debridement Size (cm) - Length 0.7 0.7 -Post Debridement Size (cm) - Width 0.7 0.6 -Post Debridement Size (cm) - Depth 0.1 0.1 -Total Square Cm 0.49 0.42 -Wound/Ulcer Outcome Not Healed Not Healed -Ulcer Cleansing Rinsed/ Rinsed/ Irrigated with Irrigated with Saline Saline -Foul Odor after Cleansing No No -Bioengineered Tissue No No -Bleeding Controlled with Pressure NA -Other No debridement today -Treatment Response Procedure Procedure Tolerated Well Tolerated Well Pain Scale: 0-10 Numeric Is Patient Pain Free? Yes Yes No debridement was completed today - No debridement was performed due to arterial perfusion. Debridements will be considered after vascular intervention if appropriate Assessment/Plan Active Problems Chronic ulcer of left foot with fat layer exposed (Chronic) Peripheral arterial occlusive disease (Chronic) Type 2 diabetes mellitus with diabetic polyneuropathy (Chronic) Assessment: Left hallux, fourth, and fifth toe ulcers secondary to arterial disease. New ulcer left fifth toe. No infection. Diabetes with neuropathy. Left hammertoes. Malnutrition. Delayed healing Plan: I reviewed and discussed her case. Debridement was not performed due to lack of perfusion. Her noninvasive vascular studies were reviewed including bilateral monophasic waveforms right ankle-brachial index of 0.57 and left ankle -brachial index of 0.34. The toe brachial index on the right foot is 0.23 and it is not able to be calculated on the left lower extremity. She has a follow- up with Dr. Burgos and he is considering reconstructive surgery pending cardiac clearance. She understands she is high risk for limb loss and amputation. To offload the forefoot by wearing an open toed surgical shoe. She is previously fitted for this. To take caution with the cold weather outside to avoid frostbite or other cold injuries. To improve nutritional and healing optimization with nutritional supplementation. She is taking Ensure twice a day and she was advised to continue. To change dressing daily with Santyl. She is doing well with this plan at this time. She was reassured there are no signs of acute infection at this time. Serial labs will be monitored. Her most recent labs were from March 06, 2017 with a white blood cell count 7.4 and creatinine 0.46. To return to clinic at the wound center 1 week or call sooner if she has any questions or concerns. All of her questions were answered.
== END 2017-04-10 23:59 ==
LOC: WC 10:30
PROVIDERS: Family Provider Internal Medicine; PCP Internal Medicine; Visit Provider Podiatrist
DX: E11.621 Type 2 diabetes mellitus with foot ulcer (principal); E11.42 Type 2 diabetes mellitus with diabetic polyneuropathy; L97.522 Non-pressure chronic ulcer of other part of left foot with fat layer exposed; Z79.01 Long term (current) use of anticoagulants; G40.909 Epilepsy, unspecified, not intractable, without status epilepticus; J44.9 Chronic obstructive pulmonary disease, unspecified; Z87.891 Personal history of nicotine dependence; I10 Essential (primary) hypertension; E78.5 Hyperlipidemia, unspecified; M20.42 Other hammer toe(s) (acquired), left foot; I77.9 Disorder of arteries and arterioles, unspecified
CPT/HCPCS: 97602; 99214; 99215; G0463

== ENCOUNTER 2017-04-17 14:22 | Outpatient (RCR) | payer MEDICARE, SELFPAY ==
[2017-04-11 01:01] VITALS: BP 104/80; PULSE 70; RESP 18; TEMP 35.4; BMI 24.7
[2017-04-17 15:31] VITALS: BP 156/84; PULSE 73; RESP 18; TEMP 36; BMI 24.7
--- NOTE | 2017-04-17 15:57 | PN.PCM_ITS ---
(1) Chronic ulcer of left foot with fat layer exposed Status: Chronic Current Visit: Yes Code(s): L97.522 - Non-pressure chronic ulcer of other part of left foot with fat layer exposed (2) Type 2 diabetes mellitus with diabetic polyneuropathy Status: Chronic Current Visit: No Code(s): E11.42 - Type 2 diabetes mellitus with diabetic polyneuropathy (3) Hammer toe of left foot Status: Chronic Current Visit: Yes Code(s): M20.42 - Other hammer toe(s) ( acquired), left foot (4) Other specified peripheral vascular diseases Status: Chronic Current Visit: Yes Code(s): I73.89 - Other specified peripheral vascular diseases Type of Wound Date of Service: 04/17/17 Chief Complaint: Left foot ulcers History of Wound: This 67-year-old female with significant past medical history of neuropathy, peripheral vascular disease, history of seizure disorder, on chronic anticoagulation, cerebrovascular disease, hypertension, COPD, history of tobacco use, diabetes, dyslipidemia continues to complain of painful left great toe and fourth and fifth toe ulcers. She continues to use Santyl. She is known to Dr. Burgos with vascular surgery who is considering doing a reconstructive surgery upon cardiac clearance. She is scheduled to get a stress test on May 10, 2017. Surgical scheduling is pending her cardiac clearance. She understands she is high risk for limb loss. She denies fever, chill, nausea, odor, increased redness to the foot. She denies new injuries. Progress of Wound: Stable - Physical Exam Vital Signs Temp Pulse Resp BP 96.8 F L 73 18 156/84 H 04/17/17 15:31 04/17/17 15:31 04/17/17 15:31 04/17/17 15:31 General: Alert, Oriented x3, Cooperative Extremities: No cyanosis, No edema, No Calf Tenderness - negative posada Left, Diminished Peripheral Pulses, - - Delayed capillary fill time to left toes unchanged from last visit Skin: Ulcer/ Wound - No purulence, no erythema, no streaking, no odor left foot. The wounds are fibrous and devitalized. There is no exposed bone. The skin has no hair and is very atrophic left Wound Measurements and Assessment WC - Nurse 1 - General Ulcer Measurement Start: 04/17/17 15:30 Freq: Status: Active Protocol: Activity Type Activity Date Activity User E-Sign Co-Sign Detail Recorded Client Recorded Date Recorded By Document 04/17/17 15:31 MW [id number] 04/17/17 15:38 MW 04/17/17 15:31 Wound Center Nurse 1 [Ulcer Assessment] #3 Med 5th toe-LT FOOT -Combined with other wound No -Current Size (cm) - Length 0.2 -Current Size (cm) - Width 0.3 -Current Size (cm) - Depth 0.1 -Total Square Cm 0.06 -Photo Taken No -Tunneling No -Undermining/Tunneling No -Circular Undermining No -Exudate Amt Small (1-33%) -Exudate Type Serosanguineous -Wound Margin Distinct, Outline Attached -Granulation Amt None Present (0 %) -Slough/Fibrin Yes -Necrosis Amt Large (67-100%) -Necrotic Tissue Type Adherent Slough -Structure Exposed N/A -Texture (Libra-wound Skin Appearance) Assessed -Moisture (Libra-wound Skin Appearance Assessed ) -Color (Libra-wound Skin Appearance) Erythema -Temperature (Libra-wound Skin No Abnormality Appearance) (Pt Warm) -Tenderness on Palpation (Libra-wound No Skin Appearance) -Ulcer Cleansing Rinsed/ Irrigated with Saline -Foul Odor after Cleansing No -Anesthetic Used 4% Lidocaine Solution #2- LT 4TH TOE LATERAL ASPECT -Combined with other wound No -Current Size (cm) - Length 1.4 -Current Size (cm) - Width 2 -Current Size (cm) - Depth 0.2 -Total Square Cm 2.8 -Photo Taken No -Epithelialization None Present -Tunneling No -Undermining/Tunneling No -Circular Undermining No -Classification - Thickness Full Thickness without Exposed Support Structure -Exudate Amt Small (1-33%) -Exudate Type Serosanguineous -Wound Margin Distinct, Outline Attached -Granulation Amt None Present (0 %) -Slough/Fibrin Yes -Necrosis Amt Large (67-100%) -Necrotic Tissue Type Adherent Slough -Structure Exposed N/A -Texture (Libra-wound Skin Appearance) Assessed -Moisture (Libra-wound Skin Appearance Assessed ) -Color (Libra-wound Skin Appearance) Erythema -Temperature (Libra-wound Skin No Abnormality Appearance) (Pt Warm) -Tenderness on Palpation (Libra-wound No Skin Appearance) -Ulcer Cleansing Rinsed/ Irrigated with Saline -Foul Odor after Cleansing No -Anesthetic Used 4% Lidocaine Solution #1- LT GR TOE MEDIAL ASPECT -Combined with other wound No -Current Size (cm) - Length 0.8 -Current Size (cm) - Width 0.8 -Current Size (cm) - Depth 0.1 -Total Square Cm 0.64 -Photo Taken No -Epithelialization None Present -Tunneling No -Undermining/Tunneling No -Circular Undermining No -Classification - Thickness Full Thickness without Exposed Support Structure -Exudate Amt Small (1-33%) -Exudate Type Serosanguineous -Wound Margin Distinct, Outline Attached -Granulation Amt None Present (0 %) -Slough/Fibrin Yes -Necrosis Amt Large (67-100%) -Necrotic Tissue Type Adherent Slough -Structure Exposed N/A -Texture (Libra-wound Skin Appearance) Assessed -Moisture (Libra-wound Skin Appearance Assessed ) -Color (Libra-wound Skin Appearance) Erythema -Temperature (Libra-wound Skin No Abnormality Appearance) (Pt Warm) -Tenderness on Palpation (Libra-wound No Skin Appearance) -Ulcer Cleansing Rinsed/ Irrigated with Saline -Foul Odor after Cleansing No -Anesthetic Used 4% Lidocaine Solution [Edema Assessment] -Lower Limb Edema Present No Musculoskeletal: No Tenderness to Palpation of Joints or Extremities, Muscle Wasting, - - Digital contraction in the toes abut each other left foot Neurological: Sensory exam intact to light touch and pain Psych/Mental Status: Normal Affect, Appropriate Debridement Note No debridement was completed today - The wounds were not debrided due to lack of perfusion; she has severe peripheral vascular disease Assessment/Plan Active Problems (Last Reviewed 04/17/17 @ 14:47 by Red Millan MD) Chronic ulcer of left foot with fat layer exposed (Chronic) Hammer toe of left foot (Chronic) Other specified peripheral vascular diseases (Chronic) Assessment: Left hallux, fourth, and fifth toe ulcers secondary to arterial disease. No infection. Diabetes with neuropathy. Left hammertoes. Malnutrition. Delayed healing Plan: I reviewed and discussed her case. Debridement was not performed due to lack of perfusion. Her noninvasive vascular studies were reviewed including bilateral monophasic waveforms right ankle-brachial index of 0.57 and left ankle -brachial index of 0.34. The toe brachial index on the right foot is 0.23 and it is not able to be calculated on the left lower extremity. She has a follow- up with Dr. Burgos and he is considering reconstructive surgery pending cardiac clearance. The stress test has been scheduled for the end of this month. She understands she is high risk for limb loss and amputation. To offload the forefoot by wearing an open toed surgical shoe. She is previously fitted for this. To take caution with the cold weather outside to avoid frostbite or other cold injuries. To do ankle-foot for pain control and to avoid foot elevation due to lack of perfusion. To improve nutritional and healing optimization with nutritional supplementation. She is taking Ensure twice a day and she was advised to continue. To change dressing daily with Santyl. She is doing well with this plan at this time. She was reassured there are no signs of acute infection at this time. Serial labs will be monitored. Her most recent labs were from March 06, 2017 with a white blood cell count 7.4 and creatinine 0.46. To return to clinic at the wound center 1 week or call sooner if she has any questions or concerns. All of her questions were answered.
== END 2017-05-11 23:59 ==
LOC: WC 14:22
PROVIDERS: Family Provider Internal Medicine; PCP Internal Medicine; Visit Provider Podiatrist
DX: E11.621 Type 2 diabetes mellitus with foot ulcer (principal); E11.42 Type 2 diabetes mellitus with diabetic polyneuropathy; M20.42 Other hammer toe(s) (acquired), left foot; L97.522 Non-pressure chronic ulcer of other part of left foot with fat layer exposed; E11.51 Type 2 diabetes mellitus with diabetic peripheral angiopathy without gangrene; I10 Essential (primary) hypertension; J44.9 Chronic obstructive pulmonary disease, unspecified; Z87.891 Personal history of nicotine dependence; E78.5 Hyperlipidemia, unspecified; Z79.01 Long term (current) use of anticoagulants
CPT/HCPCS: 99214; G0463

== ENCOUNTER 2017-04-21 11:39 | Emergency (ER) | payer MEDICARE, SELFPAY ==
[2017-04-21 11:40] VITALS: BP 160/78; PULSE 77; RESP 16; TEMP 36.4; O2SAT 99; BMI 23.8
--- NOTE | 2017-04-21 12:13 | RAD_ITS ---
STUDY: X-RAY - LEFT FOOT CLINICAL: Female, 67 years old. NECROSIS FOURTH TOE TECHNIQUE: 3 view(s) of the foot. COMPARISON: February 18, 2017 FINDINGS: Normal talus, calcaneus, and tarsal bones. Normal visualized subtalar, talonavicular, calcaneocuboid, tarsal and tarsometatarsal articulations. Normal metatarsi. Normal metatarsophalangeal joint of the great toe. Normal tibial and fibular sesamoid bones. Normal interphalangeal joint of the great toe. Normal phalanges of the great toe. Normal second through fifth metatarsophalangeal joints. Normal interphalangeal joints and phalanges of the lesser toes. Again seen is diffuse osteopenia. There is fourth digit soft tissue swelling. No radiographic evidence of osteomyelitis. RAD/Foot min 3 Views IMPRESSION: There is fourth digit soft tissue swelling. Electronically Signed: Racquel Arnold MD at 12:55 EDT , Service support ,
[2017-04-21] MEDS: HYDROcodone Bitartrate/Apap 5/325 Tablet PO (12:16)
[2017-04-21] MEDS: Amox/Clavulanate 875 MG Tablet PO (12:16)
[2017-04-21] MEDS: Ondansetron ODT 4 MG Tablet PO (12:26)
--- NOTE | 2017-04-21 12:26 | ED.DCSUM_ITS ---
- ER Visit Summary Date of Service: 04/21/17 Chief Complaint: [] Left foot great toe and fourth toe pain for months followed by wound care and vascular surgery History of Present Illness: The patient is a 67 F [] labs including COPD peripheral vascular disease, she has had multiple surgeries for vascularization left lower extremity, she has been told she requires additional vascular surgery 4 months she has had discoloration and a circular red dot over her left fourth toe and great toe, she is followed by wound care center vascular surgery Dr. Burgos, and podiatry she reports she has been managed at wound care center with salves and dressings she is now having worsening pain she has no more [place] at home to use and she came to the emergency department. She is scheduled to have revascularization surgery soon and if the toes do not improve she has been told she may require amputation no trauma no other complaints Physical Examination: [] She is on home O2 her other medical problems are stable her lungs are diminished heart tones are normal abdomen soft nontender she is in no distress the left lower extremity is warm bilaterally I feel a femoral pulse I do not feel any other pulses in her lower extremity. I did place the pulse ox probe over her great toe and the fourth toe and the pulse ox did read the accurate pulse ox and heart rate with both toes the left great toe medially is a circular black dot the left fourth toe has black eschar to it in the skin appears to be denuded it is dry there is minimal redness around the fourth toe there is been really no significant change in the appearance of this foot per the patient the rest of the exam is unremarkable she stable with no other concerns or complaints Test Results: [] Emergency Department Course and Treatment: [] Long conversation with her I explained the concept of vascular arterial occlusion insufficiency dry gangrene infection osteomyelitis she indicates she is aware of all the above she is waiting to have the vascular surgery to see if her foot will recover she is just asking for pain management. 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 It may contain incorrect words, spelling, and punctuation that were not noted in review of the chart prior to signing ED Disposition - Plan for ED Patient: Chief Complaint: Wound Referrals: Irasema Jonas MD [Primary Care Provider] -
--- NOTE | 2017-04-21 13:12 | ED.DEP ---
ED Disposition - Plan for ED Patient: Chief Complaint: Wound Instructions: Discharge Instructions for Diabetic Foot Ulcers, Discharge Instructions for Pressure Ulcer Prescriptions: Hydrocodone Bitart/Apap 5-325 [[place] 5/325] 1 - 2 tab PO Q4H PRN PRN #12 tab PRN Reason: Pain Amox/Clavulanate Tablet [Augmentin Tablet] 875 mg PO Q12H #20 tab Referrals: Irasema Jonas MD [Primary Care Provider] -
[2017-04-21 13:52] VITALS: BP 140/71; PULSE 65; RESP 16
== END 2017-04-21 13:52 | disposition home or self-care (01) ==
PROVIDERS: Emergency Provider Emergency Medicine; Family Provider Internal Medicine; PCP Internal Medicine
DX: I99.8 Other disorder of circulatory system (principal); I96 Gangrene, not elsewhere classified; J44.9 Chronic obstructive pulmonary disease, unspecified; I73.9 Peripheral vascular disease, unspecified; Z99.81 Dependence on supplemental oxygen; Z79.899 Other long term (current) drug therapy
CPT/HCPCS: 73630; 96372; 99283

== ENCOUNTER → 2017-05-10 12:15 | Outpatient (CLI) | payer MEDICARE, SELFPAY ==
--- NOTE | 2017-05-10 12:17 | STE_ITS ---
Reason For Study: SOB, PRE-OP Stress Results Protocol: Dobutamine Stress Echocardiogram Maximum Predicted HR: 155 bpm Target HR: 132 bpm% Maximum Predicted HR: 93 % DurationHeart Rate Stage (mm:ss) (bpm) BPDos e BASELINE 81 139/69 DSE- 10 MCG 3:32 84 135/7910.00 DSE- 20 MCG 3:14 12 4 144/7720.00 DSE- 30 MCG 1:44 14 4 152/8130.00 RECOVERY 94 129/58 Stress Duration: 8:30 mm:ss Maximum Stress HR: 144 bpm Baseline Echocardiogram Findings Stress Echo Wall motion Data Resting WMIntermediate WMStress WM Resting Wall Motion Wall Motion Stress No regional wall motion No regional wall motion abnormalities noted. abnormalities noted. Ejection Fraction 60 %. Ejection Fraction 70 %. Stress Results Drug infusion was stopped due to achievement of target heart rate. The patient did not exhibit any symptoms during drug infusion. Normal BP respons to dobutamine. EKG Data Baseline ECG demonstrates normal sinus rhythm with a rate of 77 beats per minute. Normal intervals are noted. The resting blood pressure was 152/81. The baseline ECG demonstrates normal sinus rhythm with at rate of _ beats per minute. Normal baseline electrocardiogram. The patient was titrated from 10 mcg to a maximun of 30 mcg of dobutamine during the stress. The maximum heart rate attained was 144 beats per minute. This was 92% of maximum predicted heart rate. During dobutamine infusion, there were no ST or T wave changes noted to suggest ischemia. At peak infusion, upsloping ST changes only were noted, which did not meet the criteria for ischemia. The peak blood pressure was 152/81. No arrhythmias noted. Interpretation Summary The patient was titrated from 10 mcg to a maximun of 30 mcg of dobutamine during the stress. Normal resting LV systolic function. Nonstenotic valves. With stress, the LV size decreased and all segments augmented normally. The LVEF increased from 60% to 70%. Negative for ischemia at 92% of MPHR and at 1 METS. Normal dobutamine stress echo Ordering Physician: Red Millan Referring Physician: Red Millan Performed By: Ana Maria Smallwood RDCS
== END ==
PROVIDERS: Family Provider Internal Medicine; PCP Internal Medicine; Visit Provider Internal Medicine Cardiovascular Disease
DX: Z01.810 Encounter for preprocedural cardiovascular examination (principal); R06.02 Shortness of breath
CPT/HCPCS: 93017; 93350; J7030; A4216

== ENCOUNTER 2017-05-16 15:36 | Emergency (ER) | payer MEDICARE, SELFPAY ==
[2017-05-16 15:37] VITALS: BP 99/84; PULSE 85; RESP 16; O2SAT 98
[2017-05-16 15:38] VITALS: BP 99/84; PULSE 81; RESP 16; TEMP 36.8; O2SAT 98; BMI 22.7
--- NOTE | 2017-05-16 16:00 | ED.VISSUMM ---
- ER Visit Summary Date of Service: 05/16/17 Chief Complaint: [] Left lower extremity fourth toe redness history of chronic ulcer and peripheral vascular disease History of Present Illness: The patient is a 67 F [] please see the dictation 04/21/2017, the patient presents with similar complaint to that date, she has a chronic history of left lower extremity fourth digit ulcer and infection poor wound healing, she has history of multiple vascular surgeries for revascularization of left lower extremity she is developed ulceration of the left fourth toe as above she is scheduled to have re-vascular surgery by Dr. Burgos in [place] next week she basically is out of her Vicodin and noticed some redness around this ulcer the wound care nurse that cares for her by patient report instructed her to come to the emergency department. She is on home O2 her other medical problems are stable she has no other complaints except for some slight redness over the chronic infection/ulcer to the left fourth digit and lack of pain medication Physical Examination: [] She is in no distress her vital signs are within normal range her blood pressures about 100/80 she is on her home oxygen her lungs are diminished heart tones are distant abdomen soft nontender left lower extremity there is a deep ulcer to the lateral margin of the left fourth toe this is dry there is some minimal redness around the site. There is decreased perfusion compared to the right she has full range of motion of her lower extremities bilaterally. She has some other scattered ulcerations including to the left tip great toe and lateral foot but none of these are draining or infected or painful She clearly has chronic arterial vascular insufficiency or occlusion she is scheduled for surgery next week there is suggestion of some slight redness to the toe but nothing to suggest a serious systemic life-threatening process she assures me this is really more chronic her main complaint is she is out of her [place] This time in the past she was she was augmented and did well we will resume the therapy, I will provide her with 7 [place] tablets as of explained her the emergency department cannot manage her pain secondary to new regulations in the state of [place] and she must obtain her pain management from her physicians she understands agrees and will follow up further we again had a discussion related to osteomyelitis amputation chronic wound healing sepsis and etc. she understands she is feeling otherwise fine wants to go home and will give all of her appointments Test Results: [] Emergency Department Course and Treatment: [] Treatment Plan: [] Disposition: [] Home stable Impression: [] Arterial insufficiency occlusion chronic left lower extremity, dry gangrene ulceration left fourth toe possible early cellulitis left foot This note was generated with [employer] dictation software. It may contain incorrect words, spelling, and punctuation that were not noted in review of the chart prior to signing ED Disposition - Plan for ED Patient: Chief Complaint: Wound Check Referrals: Irasema Jonas MD [Primary Care Provider] -
--- NOTE | 2017-05-16 16:04 | ED.DCSUM_ITS ---
- ER Visit Summary Date of Service: 05/16/17 Chief Complaint: [] Left lower extremity fourth toe redness history of chronic ulcer and peripheral vascular disease History of Present Illness: The patient is a 67 F [] please see the dictation 12/2017, the patient presents with similar complaint to that date, she has a chronic history of left lower extremity fourth digit ulcer and infection poor wound healing, she has history of multiple vascular surgeries for revascularization of left lower extremity she is developed ulceration of the left fourth toe as above she is scheduled to have re-vascular surgery by Dr. Burgos in [place] next week she basically is out of her Vicodin and noticed some redness around this ulcer the wound care nurse that cares for her by patient report instructed her to come to the emergency department. She is on home O2 her other medical problems are stable she has no other complaints except for some slight redness over the chronic infection/ulcer to the left fourth digit and lack of pain medication Physical Examination: [] She is in no distress her vital signs are within normal range her blood pressures about 100/80 she is on her home oxygen her lungs are diminished heart tones are distant abdomen soft nontender left lower extremity there is a deep ulcer to the lateral margin of the left fourth toe this is dry there is some minimal redness around the site. There is decreased perfusion compared to the right she has full range of motion of her lower extremities bilaterally. She has some other scattered ulcerations including to the left tip great toe and lateral foot but none of these are draining or infected or painful She clearly has chronic arterial vascular insufficiency or occlusion she is scheduled for surgery next week there is suggestion of some slight redness to the toe but nothing to suggest a serious systemic life-threatening process she assures me this is really more chronic her main complaint is she is out of her [place] This time in the past she was she was augmented and did well we will resume the therapy, I will provide her with 7 [place] tablets as of explained her the emergency department cannot manage her pain secondary to new regulations in the state of [place] and she must obtain her pain management from her physicians she understands agrees and will follow up further we again had a discussion related to osteomyelitis amputation chronic wound healing sepsis and etc. she understands she is feeling otherwise fine wants to go home and will give all of her appointments Test Results: [] Emergency Department Course and Treatment: [] Treatment Plan: [] Disposition: [] Home stable Impression: [] Arterial insufficiency occlusion chronic left lower extremity, dry gangrene ulceration left fourth toe possible early cellulitis left foot This note was generated with [employer] dictation software. It may contain incorrect words, spelling, and punctuation that were not noted in review of the chart prior to signing ED Disposition - Plan for ED Patient: Chief Complaint: Wound Check Referrals: Irasema Jonas MD [Primary Care Provider] -
[2017-05-16] MEDS: HYDROcodone Bitartrate/Apap 5/325 Tablet PO (16:05)
[2017-05-16] MEDS: Amox/Clavulanate 875 MG Tablet PO (16:05)
--- NOTE | 2017-05-16 16:06 | DCINST.ED_ITS ---
ED Disposition - Plan for ED Patient: Chief Complaint: Wound Check Instructions: ED Wound Infec After Surgery Prescriptions: Hydrocodone Bitart/Apap 5-325 [[place] 5/325] 1 - 2 tab PO Q4H PRN PRN #7 tab PRN Reason: Pain Amox/Clavulanate Tablet [Augmentin Tablet] 875 mg PO Q12H #20 tab Referrals: Irasema Jonas MD [Primary Care Provider] -
[2017-05-16 16:17] VITALS: BP 132/73; PULSE 80; RESP 16; O2SAT 96
--- NOTE | 2017-05-16 16:18 | ED.RN ---
REVIEWED D/C INSTRUCTIONS, FOLLOW UP CARE, PRESCRIPTIONS, AND S/S THAT WOULD WARRANT A RETURN TO THE ED WITH PT. PT VERBALIZED AN UNDERSTANDING AND DENIES FURTHER QUESTIONS FOR THIS RN. PT SKIN P/W/D, REPS EVEN AND UNLABORED, PT A&O X 3, NO DISTRESS NOTED. PT ASSISTED OUT OF ED IN WHEELCHAIR.
== END 2017-05-16 16:19 | disposition home or self-care (01) ==
PROVIDERS: Emergency Provider Emergency Medicine; Family Provider Internal Medicine; PCP Internal Medicine
DX: I77.9 Disorder of arteries and arterioles, unspecified (principal); I96 Gangrene, not elsewhere classified; L97.529 Non-pressure chronic ulcer of other part of left foot with unspecified severity; R09.89 Other specified symptoms and signs involving the circulatory and respiratory systems; Z99.81 Dependence on supplemental oxygen; Z79.899 Other long term (current) drug therapy
CPT/HCPCS: 99284

== ENCOUNTER 2017-06-05 09:00 | Outpatient (RCR) | payer MEDICARE, SELFPAY ==
[2017-05-12 00:50] VITALS: BP 104/80; PULSE 73; RESP 18; TEMP 36; BMI 24.7
[2017-06-05 12:13] VITALS: BP 129/61; PULSE 70; RESP 18; TEMP 36.3; BMI 24.7
--- NOTE | 2017-06-05 13:18 | PN.PCM_ITS ---
(1) Chronic ulcer of left foot with fat layer exposed Status: Chronic Current Visit: Yes Code(s): L97.522 - Non-pressure chronic ulcer of other part of left foot with fat layer exposed (2) Peripheral arterial occlusive disease Status: Chronic Current Visit: Yes Code(s): I77.9 - Disorder of arteries and arterioles, unspecified (3) Type 2 diabetes mellitus with diabetic polyneuropathy Status: Chronic Current Visit: Yes Code(s): E11.42 - Type 2 diabetes mellitus with diabetic polyneuropathy (4) Hammer toe of left foot Status: Chronic Current Visit: Yes Code(s): M20.42 - Other hammer toe(s) ( acquired), left foot Type of Wound Date of Service: 06/07/17 Chief Complaint: Left foot ulcers History of Wound: This 67-year-old female with significant past medical history of neuropathy, peripheral vascular disease, history of seizure disorder, on chronic anticoagulation, cerebrovascular disease, hypertension, COPD, history of tobacco use, diabetes, dyslipidemia continues to complain of painful left great toe and fourth and fifth toe ulcers. She continues to use Santyl. She is known to Dr. Burgos with vascular surgery and she did have her reconstructive vascular surgery to left lower extremity completed. She denies fever, chill, nausea, odor, increased redness to the foot. Progress of Wound: Stable - Physical Exam Vital Signs Temp Pulse Resp BP 97.3 F L 70 18 129/61 H 06/05/17 12:13 06/05/17 12:13 06/05/17 12:13 06/05/17 12:13 General: Alert, Oriented x3, Cooperative Extremities: No cyanosis, Capillary Refill Less than 3 Seconds, No Calf Tenderness - Negative Beverley and Shoemaker sign left, Diminished Peripheral Pulses - Nonpalpable pedal pulses left, Edema Skin: Ulcer/ Wound - Fibrous ulcer to the medial fifth toe lateral entire fourth toe and medial left hallux. There is no exposed bone or joint however there is some eschar formation and this is not confirmed., Incision - Vascular surgery incision site is well coapted and aligned to the proximal left leg without signs of infection or necrosis; this was kept intact, - - The skin is atrophic and hairless bilateral lower extremities Wound Measurements and Assessment WC - Nurse 1 - General Ulcer Measurement Start: 06/05/17 12:13 Freq: Status: Active Protocol: Activity Type Activity Date Activity User E-Sign Co-Sign Detail Recorded Client Recorded Date Recorded By Document 06/05/17 12:13 RB [id number] 06/05/17 12:26 RB 06/05/17 12:13 Wound Center Nurse 1 [Ulcer Assessment] 6. L 5th medial toe -Combined with other wound No -Current Size (cm) - Length 0.8 -Current Size (cm) - Width 0.8 -Current Size (cm) - Depth 0.1 -Total Square Cm 0.64 -Photo Taken No -Tunneling No -Undermining/Tunneling No -Circular Undermining No -Classification - Thickness Full Thickness without Exposed Support Structure -Exudate Amt Small (1-33%) -Exudate Type Serosanguineous -Wound Margin Distinct, Outline Attached -Granulation Amt Small (1-33%) -Granulation Quality [place] -Slough/Fibrin Yes -Necrosis Amt Large (67-100%) -Necrotic Tissue Type Adherent Slough -Structure Exposed N/A -Texture (Libra-wound Skin Appearance) Assessed -Moisture (Libra-wound Skin Appearance Assessed ) -Color (Libra-wound Skin Appearance) Assessed -Temperature (Libra-wound Skin No Abnormality Appearance) (Pt Warm) -Tenderness on Palpation (Libra-wound No Skin Appearance) -Ulcer Cleansing Rinsed/ Irrigated with Saline -Foul Odor after Cleansing No -Anesthetic Used 5% Lidocaine Gel 5. L 4th lateral toe -Combined with other wound No -Current Size (cm) - Length 3.2 -Current Size (cm) - Width 1.9 -Current Size (cm) - Depth 0.1 -Total Square Cm 6.08 -Photo Taken No -Tunneling No -Undermining/Tunneling No -Circular Undermining No -Classification - Thickness Unclassifiable (Eschar Covered ) -Exudate Amt Small (1-33%) -Exudate Type Serosanguineous -Wound Margin Distinct, Outline Attached -Necrosis Amt Large (67-100%) -Necrotic Tissue Type Eschar -Structure Exposed N/A -Texture (Libra-wound Skin Appearance) Assessed -Moisture (Libra-wound Skin Appearance Assessed ) -Color (Libra-wound Skin Appearance) Assessed -Temperature (Libra-wound Skin No Abnormality Appearance) (Pt Warm) -Tenderness on Palpation (Libra-wound No Skin Appearance) -Ulcer Cleansing Rinsed/ Irrigated with Saline -Foul Odor after Cleansing No -Anesthetic Used 5% Lidocaine Gel 4. L medial great toe -Combined with other wound No -Current Size (cm) - Length 1.4 -Current Size (cm) - Width 0.9 -Current Size (cm) - Depth 0.1 -Total Square Cm 1.26 -Photo Taken Yes -Tunneling No -Undermining/Tunneling No -Circular Undermining No -Classification - Thickness Unclassifiable (Eschar Covered ) -Exudate Amt Small (1-33%) -Exudate Type Serosanguineous -Wound Margin Distinct, Outline Attached -Granulation Amt None Present (0 %) -Necrosis Amt Large (67-100%) -Necrotic Tissue Type Eschar -Structure Exposed N/A -Texture (Libra-wound Skin Appearance) Assessed -Moisture (Libra-wound Skin Appearance Assessed ) -Color (Libra-wound Skin Appearance) Assessed Erythema -Temperature (Libra-wound Skin No Abnormality Appearance) (Pt Warm) -Tenderness on Palpation (Libra-wound No Skin Appearance) -Ulcer Cleansing Rinsed/ Irrigated with Saline -Foul Odor after Cleansing No -Anesthetic Used 5% Lidocaine Gel [Edema Assessment] -Lower Limb Edema Present Yes -Right Calf (cm) 26.5 -Right Ankle (cm) 19 -Left Calf (cm) 27 -Left Ankle (cm) 17 WC - Nurse 2 - General Ulcer CM Notes Start: 06/05/17 12:13 Freq: Status: Active Protocol: Activity Type Activity Date Activity User E-Sign Co-Sign Detail Recorded Client Recorded Date Recorded By Document 06/05/17 12:48 [id number] 06/05/17 12:53 06/05/17 12:48 Wound Center Nurse 2 [Procedure/Treatment] 6. L 5th medial toe -Time 12:48 -Correct Patient Yes -Correct Side, Site, Position Yes -Correct Procedure Yes -Procedure Performed Yes -Type of Procedure Debridement -Clinical Debridement Subcutaneous -Post Debridement Size (cm) - Length 0.9 -Post Debridement Size (cm) - Width 0.9 -Post Debridement Size (cm) - Depth 0.1 -Total Square Cm 0.81 -Wound/Ulcer Outcome Not Healed -Ulcer Cleansing Rinsed/ Irrigated with Saline -Foul Odor after Cleansing No -Bioengineered Tissue No -Topical Lidocaine (%) 5 -Bleeding Controlled with Pressure -Treatment Response Procedure Tolerated Well 5. L 4th lateral toe -Time 12:48 -Correct Patient Yes -Correct Side, Site, Position Yes -Correct Procedure Yes -Procedure Performed Yes -Type of Procedure Debridement -Clinical Debridement Subcutaneous -Post Debridement Size (cm) - Length 3.3 -Post Debridement Size (cm) - Width 2.0 -Post Debridement Size (cm) - Depth 0.1 -Total Square Cm 6.60 -Wound/Ulcer Outcome Not Healed -Ulcer Cleansing Rinsed/ Irrigated with Saline -Foul Odor after Cleansing No -Bioengineered Tissue No -Topical Lidocaine (%) 5 -Bleeding Controlled with Pressure -Treatment Response Procedure Tolerated Well 4. L medial great toe -Time 12:49 -Correct Patient Yes -Correct Side, Site, Position Yes -Correct Procedure Yes -Procedure Performed Yes -Type of Procedure Debridement -Clinical Debridement Subcutaneous -Post Debridement Size (cm) - Length 1.5 -Post Debridement Size (cm) - Width 1.0 -Post Debridement Size (cm) - Depth 0.1 -Total Square Cm 1.50 -Wound/Ulcer Outcome Not Healed -Ulcer Cleansing Rinsed/ Irrigated with Saline -Foul Odor after Cleansing No -Bioengineered Tissue No -Topical Lidocaine (%) 5 -Bleeding Controlled with Pressure -Treatment Response Procedure Tolerated Well [See Physician Procedure note for Specifics] Pain Scale: 0-10 Numeric [Pain] -Is Patient Pain Free? Yes Musculoskeletal: No Tenderness to Palpation of Joints or Extremities, Muscle Wasting, - - Dorsal digital contraction in all toes about each other left lower extremity Neurological: Sensory exam intact to light touch and pain Psych/Mental Status: Normal Affect, Appropriate Debridement Note Post-Debridement Measurements/Treatment WC - Nurse 2 - General Ulcer CM Notes Start: 06/05/17 12:13 Freq: Status: Active Protocol: Activity Type Activity Date Activity User E-Sign Co-Sign Detail Recorded Client Recorded Date Recorded By Document 06/05/17 12:48 [id number] 06/05/17 12:53 06/05/17 12:48 Wound Center Nurse 2 6. L 5th medial toe -Time 12:48 -Correct Patient Yes -Correct Side, Site, Position Yes -Correct Procedure Yes -Procedure Performed Yes -Type of Procedure Debridement -Clinical Debridement Subcutaneous -Post Debridement Size (cm) - Length 0.9 -Post Debridement Size (cm) - Width 0.9 -Post Debridement Size (cm) - Depth 0.1 -Total Square Cm 0.81 -Wound/Ulcer Outcome Not Healed -Ulcer Cleansing Rinsed/ Irrigated with Saline -Foul Odor after Cleansing No -Bioengineered Tissue No -Topical Lidocaine (%) 5 -Bleeding Controlled with Pressure -Treatment Response Procedure Tolerated Well 5. L 4th lateral toe -Time 12:48 -Correct Patient Yes -Correct Side, Site, Position Yes -Correct Procedure Yes -Procedure Performed Yes -Type of Procedure Debridement -Clinical Debridement Subcutaneous -Post Debridement Size (cm) - Length 3.3 -Post Debridement Size (cm) - Width 2.0 -Post Debridement Size (cm) - Depth 0.1 -Total Square Cm 6.60 -Wound/Ulcer Outcome Not Healed -Ulcer Cleansing Rinsed/ Irrigated with Saline -Foul Odor after Cleansing No -Bioengineered Tissue No -Topical Lidocaine (%) 5 -Bleeding Controlled with Pressure -Treatment Response Procedure Tolerated Well 4. L medial great toe -Time 12:49 -Correct Patient Yes -Correct Side, Site, Position Yes -Correct Procedure Yes -Procedure Performed Yes -Type of Procedure Debridement -Clinical Debridement Subcutaneous -Post Debridement Size (cm) - Length 1.5 -Post Debridement Size (cm) - Width 1.0 -Post Debridement Size (cm) - Depth 0.1 -Total Square Cm 1.50 -Wound/Ulcer Outcome Not Healed -Ulcer Cleansing Rinsed/ Irrigated with Saline -Foul Odor after Cleansing No -Bioengineered Tissue No -Topical Lidocaine (%) 5 -Bleeding Controlled with Pressure -Treatment Response Procedure Tolerated Well Pain Scale: 0-10 Numeric Is Patient Pain Free? Yes Wound debrided: medial 5th toe Laterality: Left Type of Debridement: Excisional debridement Anesthesia Used: 4% Lidocaine Solution Depth: in the subcutaneous layer Percentage of wound debrided: 100 Instrument Used: #15 blade, Forceps Tissue Removed: fibrous, devitalized subcutaneous, biofilm, slough,eschar Severity: Fat Layer Exposed Amount of bleeding with debridement: None Patient tolerated procedure well - Additional Wound Wound debrided: lateral 4th toe Laterality: Left Type of Debridement: Excisional debridement Anesthesia Used: 4% Lidocaine Solution Depth: in the subcutaneous layer Percentage of wound debrided: 100 Instrument Used: #15 blade, Forceps Tissue Removed: fibrous, devitalized subcutaneous, biofilm, slough, eschar Severity: Fat Layer Exposed Amount of bleeding with debridement: None - Additional Wound Wound debrided: medial hallux Laterality: Left Type of Debridement: Excisional debridement Anesthesia Used: 4% Lidocaine Solution Depth: in the subcutaneous layer Percentage of wound debrided: 100 Instrument Used: #15 blade, Forceps Tissue Removed: fibrous, devitalized subcutaneous, biofilm, slough,eschar Severity: Fat Layer Exposed Amount of bleeding with debridement: None Assessment/Plan Active Problems (Last Reviewed 04/17/17 @ 14:47 by Red Millan MD) Chronic ulcer of left foot with fat layer exposed (Chronic) Peripheral arterial occlusive disease (Chronic) Type 2 diabetes mellitus with diabetic polyneuropathy (Chronic) Hammer toe of left foot (Chronic) Assessment: Left hallux, fourth, and fifth toe ulcers secondary to arterial disease. No infection. Diabetes with neuropathy. Left hammertoes. Malnutrition. Delayed healing Plan: I reviewed and discussed her case. Debridement was performed as noted in the clinical panel. Her noninvasive vascular studies were reviewed including bilateral monophasic waveforms right ankle-brachial index of 0.57 and left ankle -brachial index of 0.34. The toe brachial index on the right foot is 0.23 and it is not able to be calculated on the left lower extremity. Her vascular surgery has been completed and she is waiting to see if reperfusion is successful. She understands she is high risk for limb loss and amputation. To offload the forefoot by wearing an open toed surgical shoe. She is previously fitted for this. To take caution with the cold weather outside to avoid frostbite or other cold injuries. To do ankle-foot for pain control and to avoid foot elevation due to lack of perfusion. To improve nutritional and healing optimization with nutritional supplementation. She is taking Ensure twice a day and she was advised to continue. To change dressing daily with Santyl. She is doing well with this plan at this time. She was reassured there are no signs of acute infection at this time. Serial labs will be monitored. Her most recent labs were from March 06, 2017 with a white blood cell count 7.4 and creatinine 0.46. To return to clinic at the wound center 1 week or call sooner if she has any questions or concerns. All of her questions were answered.
== END 2017-06-10 23:59 ==
LOC: WC 09:00
PROVIDERS: Family Provider Internal Medicine; PCP Internal Medicine; Visit Provider Podiatrist
DX: E11.621 Type 2 diabetes mellitus with foot ulcer (principal); E11.42 Type 2 diabetes mellitus with diabetic polyneuropathy; E11.51 Type 2 diabetes mellitus with diabetic peripheral angiopathy without gangrene; L97.522 Non-pressure chronic ulcer of other part of left foot with fat layer exposed; Z79.01 Long term (current) use of anticoagulants; Z87.891 Personal history of nicotine dependence; I10 Essential (primary) hypertension; E11.9 Type 2 diabetes mellitus without complications; J44.9 Chronic obstructive pulmonary disease, unspecified; E78.5 Hyperlipidemia, unspecified; M20.42 Other hammer toe(s) (acquired), left foot
CPT/HCPCS: 11042; 97602; 99214; G0463

== ENCOUNTER 2017-07-13 11:39 | Emergency (ER) | payer MEDICARE, SELFPAY ==
[2017-07-13 11:42] VITALS: BP 116/72; PULSE 110; RESP 16; TEMP 36.5; O2SAT 98; BMI 22.7
--- NOTE | 2017-07-13 12:16 | ED.DCSUM_ITS ---
- ER Visit Summary Date of Service: 07/13/17 Chief Complaint: [Left toe pain] History of Present Illness: The patient is a 67 F [presents the emergency department with ulceration of left foot. It has been there for 10 months. Over the last couple of days the pain has become excruciating. It has become much worse. She has intermittent fevers. She is a smoker. She has type 2 diabetes but is no longer on any medications. She has been following with the wound center however it continues to get worse. He feels very nauseated she thinks this is from the pain.] Physical Examination: [] WN WD NAD PERRL EOMI MMM NECK supple and nontender, no masses Your tachycardic rhythm no murmur rub or gallop, no peripheral edema, symmetric radial pulses CTAB no respiratory distress ABDOMEN is soft and nontender, normal bowel sounds, no distension, no rebound or guarding SKIN is warm she has ulceration between the fourth and fifth toes with exposed muscle there is no surrounding erythema there is some necrotic tissue there is 1 + DP pulses she has full range of motion Alert and Oriented x3, CN II-XII in tact, no motor or sensory deficits, gait normal No lymphadenopathy Test Results: [] Emergency Department Course and Treatment: [Screening labs were obtained and show chronic hyponatremia at 126 there is no leukocytosis. X-rays show demineralization but no acute osteomyelitis. Gave her clindamycin and she did have necrotic tissue but was not obviously infected. I spoke with podiatry thinking she may need a workup for osteomyelitis however in speaking with them she they state that she has had multiple failed bypasses has chronic limb ischemia had been recommended an [id number] amputation and was supposed to get that. I called the patient's vascular surgeon Dr. Burgos who states that he had referred her to Dr. Gee and [facility]. The patient states she call for appointment but has not heard back. I spoke with orthopedics here Dr. Hernandez who states that he can see her as an outpatient but does not feel she needs to be admitted. I spoke with the patient and offered her transfer to [facility] for pain control and more expeditious amputation and she elected to go home with pain medicine and follow-up with Dr. Hernandez as she would like time to prepare. I did discuss with her that if she gets a fever or intractable pain she should return to the emergency department and we will reevaluate the situation at that time.] Treatment Plan: [] Disposition: [Discharge] Impression: [chronic limb ischemia to the left lower extremity] This note was generated with [employer] dictation software. It may contain incorrect words, spelling, and punctuation that were not noted in review of the chart prior to signing ED Disposition - Plan for ED Patient: Chief Complaint: Lower Extremity Injury Referrals: Irasema Jonas MD [Primary Care Provider] -
--- NOTE | 2017-07-13 12:25 | RAD_ITS ---
STUDY: X-RAY - LEFT FOOT CLINICAL: Female, 67 years old. Pain and wound between multiple toes. TECHNIQUE: 3 view(s) of the foot. COMPARISON: None. FINDINGS: There is demineralization of the rear and midfoot bones. Normal visualized subtalar, talonavicular, calcaneocuboid, tarsal and tarsometatarsal articulations. There is demineralization of the metatarsi. There is degenerative arthrosis of the metatarsophalangeal joint of the hallux . Normal tibial and fibular sesamoid bones. Normal interphalangeal joint of the great toe. Normal phalanges of the great toe. Normal second through fifth metatarsophalangeal joints. Normal interphalangeal joints and phalanges of the lesser toes. The soft tissue structures are unremarkable. RAD/Foot min 3 Views IMPRESSION: Diffuse demineralization throughout the foot with no evidence of focal erosion or acute process. Electronically Signed: Yuriy Vail DO at 13:12 EDT , Service support ,
[2017-07-13] MEDS: Ondansetron 4 MG/2 ML Vial IV (12:58)
[2017-07-13] MEDS: Morphine 4 MG/ML Syringe IV ×2 (12:58→15:57)
[2017-07-13 12:59] VITALS: BP 117/66; PULSE 94; RESP 17; O2SAT 97
[2017-07-13 12:59] LABS: Hematocrit 32.8 % (37-47); Hemoglobin 10.6 g/dl (12.0-15.0); Mean Corp Hgb Conc 32.3 g/gl (32-36); Mean Corpuscular Hgb 28.2 pg (27.0-32.0); Mean Corpuscular Volume 87.2 fL (81-99); Mean Platelet Vol. 8.9 fl (6.2-12.0); Platelet Count 235 K/mm3 (150-450); RBC Distribution Width CV 13.5 % (11.6-14.6); RBC Distribution Width SD 43.1 fl (35.1-43.9); Red Blood Count 3.76 M/mm3 (4.2-5.4); Scan Indicated on CBC? Y/N NO
[2017-07-13 13:20] LABS: ALB/GLOB Ratio 0.7 RATIO (0.9-2.4); AST(SGOT) 40 U/L (15-37); Alanine Aminotransfer ALT/SGPT 32 U/L (13-56); Albumin, Serum 3.6 g/dL (3.2-5.0); Alkaline Phosphatase 182 U/L (45-117); Anion Gap 7 (5-15); BUN 12 mg/dL (7-18); BUN/Creat Ratio 17.8 RATIO (10-20); Calcium,Total 9.2 mg/dL (8.5-10.1); Chloride 89 mmol/L (98-107); Creatinine, Serum 0.68 mg/dL (0.55-1.02); EST Glomerular Filtration Rate 93 mL/min (>60); Est Glom Filt Rate - Afr Amer 113 mL/min (>60); Estimated Creatinine Clearance 62.01 ml/min; Globulin 4.9 g/dL (2.2-4.2); Glucose 80 mg/dL (74-106); Potassium 4.8 mmol/L (3.5-5.1); Protein, Total 8.5 g/dL (6.4-8.2); Sodium Level 126 mmol/L (136-145)
[2017-07-13 13:31] VITALS: BP 128/72; PULSE 85; RESP 14; O2SAT 100
[2017-07-13] MEDS: fentaNYL 100 MCG/2 ML Ampul 50 MCG IV (14:13)
[2017-07-13] MEDS: Clindamycin 600 MG/50 ML BAG 100 MG IV (14:25)
[2017-07-13 14:28] VITALS: BP 128/84; PULSE 82; RESP 16; O2SAT 100
--- NOTE | 2017-07-13 15:03 | ED.DEP ---
ED Disposition - Plan for ED Patient: Chief Complaint: Lower Extremity Injury Diagnosis: Peripheral arterial occlusive disease Instructions: Critical Limb Ischemia Prescriptions: Oxycodone HCl/Acetaminophen [Percocet 5/325] 1 - 2 tablet PO Q4H PRN PRN 5 Days #20 tablet PRN Reason: Pain Clindamycin [Cleocin] 300 mg PO 4X/DAY #80 capsule Referrals: Gopal Hernandez MD [STAFF PHYSICIAN] - 3-5 Days
[2017-07-13 16:17] VITALS: BP 148/86; PULSE 84; RESP 24; O2SAT 98
[2017-07-13 17:01] LABS: Erythrocyte Sedimentation Rate 32 mm/hr (0-30)
== END 2017-07-13 16:18 | disposition home or self-care (01) ==
PROVIDERS: Emergency Provider Emergency Medicine; Family Provider Internal Medicine; PCP Internal Medicine
DX: I99.8 Other disorder of circulatory system (principal); L97.528 Non-pressure chronic ulcer of other part of left foot with other specified severity; E11.9 Type 2 diabetes mellitus without complications; E87.1 Hypo-osmolality and hyponatremia; Z79.02 Long term (current) use of antithrombotics/antiplatelets; Z79.01 Long term (current) use of anticoagulants; Z79.899 Other long term (current) drug therapy; F17.200 Nicotine dependence, unspecified, uncomplicated
CPT/HCPCS: 73630; 80053; 85027; 85652; 86140; 87040; 87070; 87075; 87077; 87186; 87205; 96361; 96365; 96366; 96374; 96375; 96376; 99285; J7030; J7040; A4216; J2405

== ENCOUNTER 2017-07-16 11:55 | Emergency (ER) | payer MEDICARE, SELFPAY ==
--- NOTE | 2017-07-16 11:35 | RAD_ITS ---
STUDY: X-RAY - LEFT FOOT CLINICAL: Female, 67 years old. Infection and fourth and fifth great toes. Evaluate for osteomyelitis. TECHNIQUE: 3 view(s) of the foot. COMPARISON: July 13, 2017 FINDINGS: There is stable generalized osteopenia. Normal talus, calcaneus, and tarsal bones. Normal visualized subtalar, talonavicular, calcaneocuboid, tarsal and tarsometatarsal articulations. Normal metatarsi. There is mild arthrosis of the metatarsophalangeal and interphalangeal joints unchanged. The soft tissue structures are unremarkable. RAD/Foot min 3 Views IMPRESSION: Stable osteopenia with osteoarthritic change. No evidence of osteomyelitis. Electronically Signed: Irving Sidhu MD at 14:58 EDT , Service support ,
--- NOTE | 2017-07-16 11:55 | DT_ITS ---
This patient was seen during an EMR downtime July 15, 2017 - July 22, 2017. This patient may have a combination of paper and electronic documentation or all paper documentation. All documentation is viewable within the e-chart portion of [employer] for each patient visit.
[2017-07-19 12:40] LABS: Hematocrit 31.4 % (37-47); Hemoglobin 9.9 g/dl (12.0-15.0); Mean Corp Hgb Conc 31.5 g/gl (32-36); Mean Corpuscular Hgb 29.1 pg (27.0-32.0); Mean Corpuscular Volume 92.4 fL (81-99); Neutrophil % 63.6 % (47-70); POSITIVE COUNT NO; POSITIVE DIFFERENTIAL NO; POSITIVE MORPHOLOGY NO; Platelet Count 201 K/mm3 (150-450); RBC Distribution Width CV 12.8 % (11.6-14.6); RBC Distribution Width SD 41.9 fl (35.1-43.9); White Blood Count 4.6 K/mm3 (4.4-11.0)
[2017-07-19 12:41] LABS: Absolute Lymphocyte Count 1.02 X10^3/ul (0.83-4.51); Absolute Neutrophil Count 2.9 X10^3/uL (2.0-7.7); Basophil# 0.02 X10^3/uL; Basophil% 0.4 % (0-1); Eosinophil# 0.06 X10^3/uL; Eosinophils% 1.3 % (0-5); Lymphocyte # 1.02 X10^3/ul (4.0); Lymphocyte % 22.4 % (19-41); Monocyte# 0.55 X10^3/uL; Monocyte% 12.1 % (0-10)
[2017-07-20 04:07] LABS: Anion Gap 8 (5-15); BUN 6 mg/dL (7-18); BUN/Creat Ratio 12.5 RATIO (10-20); CRP 8.81 mg/L (0.0-3.0); Calcium,Total 8.8 mg/dL (8.5-10.1); Chloride 93 mmol/L (98-107); Creatinine, Serum 0.48 mg/dL (0.55-1.02); EST Glomerular Filtration Rate 138 mL/min (>60); Est Glom Filt Rate - Afr Amer 167 mL/min (>60); Glucose 91 mg/dL (74-106); Potassium 4.1 mmol/L (3.5-5.1); Sodium Level 132 mmol/L (136-145)
== END 2017-07-16 15:20 | disposition home or self-care (01) ==
LOC: ED 07-18 12:28
PROVIDERS: Emergency Provider Emergency Medicine; Family Provider Internal Medicine; PCP Internal Medicine
DX: E11.621 Type 2 diabetes mellitus with foot ulcer (principal); L97.521 Non-pressure chronic ulcer of other part of left foot limited to breakdown of skin; A49.8 Other bacterial infections of unspecified site; F17.210 Nicotine dependence, cigarettes, uncomplicated; G40.909 Epilepsy, unspecified, not intractable, without status epilepticus; I10 Essential (primary) hypertension; J44.9 Chronic obstructive pulmonary disease, unspecified; Z79.899 Other long term (current) drug therapy; Z86.73 Personal history of transient ischemic attack (TIA), and cerebral infarction without residual deficits; Z99.81 Dependence on supplemental oxygen
CPT/HCPCS: 73630; 80048; 85025; 86140; 87040; 96374; 96375; 96376; 99284; J7030; A4216; J2405

== ENCOUNTER 2017-08-28 09:11 | Inpatient (IN) | payer MEDICARE, SELFPAY ==
[2017-08-21 15:49] VITALS: BP 130/61; PULSE 68; RESP 18; TEMP 36.4; O2SAT 67; BMI 23.1
--- NOTE | 2017-08-21 16:17 | RAD_ITS ---
STUDY: X-RAY CHEST REASON FOR EXAM: Female, 67 years old. Pre-op. TECHNIQUE: PA and lateral views of the chest. COMPARISON: February 28, 2017. FINDINGS: There is hyperinflation of the lungs consistent with chronic obstructive lung disease (COPD). There is bilateral apical pleural scarring. There is no new infiltrate or mass within the lungs. There is no demonstrated pleural effusion.. Normal size heart. Normal mediastinum and rhae. Normal visualized pulmonary arteries. There is atherosclerotic calcification of the aortic arch with tortuosity. There is mild dextroscoliosis and degenerative changes of the lumbar spine. There are compression deformities of what is thought to be T6 and T7 with exaggerated kyphosis. There are multiple remote bilateral rib fractures. There is no demonstrated abnormality of the visualized soft tissue structures of the upper abdomen. RAD/Chest PA and Lateral IMPRESSION: 1. COPD without acute cardiopulmonary disease or major interval change. Electronically Signed: Merlin Vizcarra DO at 16:38 EDT Tel [phone], Service support ,
[2017-08-21 16:43] LABS: Absolute Lymphocyte Count 1.51 X10^3/ul (0.83-4.51); Absolute Neutrophil Count 2.9 X10^3/uL (2.0-7.7); Basophil# 0.01 X10^3/uL; Basophil% 0.2 % (0-1); Eosinophil# 0.13 X10^3/uL; Eosinophils% 2.6 % (0-5); Hematocrit 31.7 % (37-47); Hemoglobin 9.9 g/dl (12.0-15.0); Lymphocyte # 1.51 X10^3/ul (4.0); Lymphocyte % 29.7 % (19-41); Mean Corp Hgb Conc 31.2 g/gl (32-36); Mean Corpuscular Hgb 28.9 pg (27.0-32.0); Mean Corpuscular Volume 92.4 fL (81-99); Mean Platelet Vol. 9.2 fl (6.2-12.0); Monocyte# 0.56 X10^3/uL; Neutrophil # 2.87 X10^3/uL (2.7-7.7); Neutrophil % 56.3 % (47-70); Platelet Count 258 K/mm3 (150-450); RBC Distribution Width CV 13.9 % (11.6-14.6); RBC Distribution Width SD 45.7 fl (35.1-43.9); Red Blood Count 3.43 M/mm3 (4.2-5.4); White Blood Count 5.1 K/mm3 (4.4-11.0)
[2017-08-21 16:44] LABS: International Normalized Ratio 1.4; Prothrombin Time (Protime)PT. 17.5 SECONDS (11.7-14.9)
[2017-08-21 16:45] LABS: POSITIVE COUNT NO; POSITIVE DIFFERENTIAL NO; POSITIVE MORPHOLOGY NO; Partial Thromboplast Time 42.9 Seconds (24.1-36.2)
[2017-08-21 17:00] LABS: AST(SGOT) 18 U/L (15-37); Alanine Aminotransfer ALT/SGPT 18 U/L (13-56); Albumin, Serum 3.3 g/dL (3.2-5.0); Alkaline Phosphatase 99 U/L (45-117); Anion Gap 7 (5-15); BUN 13 mg/dL (7-18); BUN/Creat Ratio 12.3 RATIO (10-20); Bilirubin, Direct < 0.05 mg/dL (0.00-0.30); Calcium,Total 8.1 mg/dL (8.5-10.1); Chloride 100 mmol/L (98-107); Creatinine, Serum 1.06 mg/dL (0.55-1.02); EST Glomerular Filtration Rate 55 mL/min (>60); Est Glom Filt Rate - Afr Amer 67 mL/min (>60); Estimated Creatinine Clearance 40.54 ml/min; Globulin 4.2 g/dL (2.2-4.2); Glucose 84 mg/dL (74-106); Potassium 4.4 mmol/L (3.5-5.1); Protein, Total 7.5 g/dL (6.4-8.2); Sodium Level 135 mmol/L (136-145)
[2017-08-21 17:14] LABS: Hemoglobin A1c 4.9 % (4.2-6.3)
[2017-08-28] VITALS (25 sets, daily range): BP systolic 78–209; BP diastolic 54–148; PULSE 67–97; RESP 16–20; TEMP 36.2–37.4; O2SAT 94–100; BMI 23.1
--- NOTE | 2017-08-28 | AMP_PTH ---
PATIENT: MEME JOHNSON LOC: MS3 U#:[id number] AGE/SX: 67/F [place] [facility] [place]: Dr. Violet Yancey MD : 1950 BED: 1 DIS: 08/31/2017 SPEC #: [id number] RECD: 08/28/17 13:56 STATUS: ANUJA REJose #: [id number] MATTHEW: 08/28/17 00:[address]: Gopal Hernandez DEPT: SURGICAL PATHOLOGY RECD BY: Roland Damon ENTERED: 08/28/17 14:00 SP TYPE: Amputation OTHR DR: MD Dr. Irasema Zaman MD Tissues: Leg, NOS Procedures: Decalcification bone/plaque Special Stain Group I Surgery Specimen Level V AFB Stain (control) GMS Stain (control) HEADER OPERATION: Above knee amputation PRE-OP DIAGNOSIS: Non-pressure chronic ulcer of other part left foot with necrosis of bone TISSUE SUBMITTED: Left leg MICROSCOPIC DIAGNOSIS Left leg, above knee amputation: Focal ulceration and associated acute inflammation and necrosis. Underlying bone with acute osteomyelitis. Anterior tibial vessel, posterior tibial vessel and dorsalis pedis vessel with marked atherosclerotic changes and calcification. Special stains for acid fast bacilli and fungi are negative for organisms; matched controls are appropriate. SJ:kai 09/02/17 MICROSCOPIC DESCRIPTION Slides are reviewed. GROSS DESCRIPTION Received labeled with the patient's name and designated above knee amputation, left. The specimen consists of a left lower extremity above knee amputation. The leg measures from posterior cutaneous resection margin to heel 43 cm in length and from tip of the great toe to heel 24 cm. The anterior cutaneous resection margin is 4 cm above the posterior cutaneous resection margin. A 6 cm portion of the femur is projecting beyond the anterior cutaneous resection margin. A healed scar is noted over the knee measuring 17 cm in length. An ecchymotic area is noted on the dorsal surface of the foot. Two areas of ulceration are noted, one on the medial surface of the great toe measuring 2 x 1 cm and the second one is on the lateral surface of the fourth toe measuring 3 x 1.5 cm. Dorsalis pedis vessels, anterior tibial vessels, posterior tibial vessels and popiteal vessels are dissected and show marked calcification and almost obliteration of tissue. The popliteal vessel shows a clip at the resection margin. Keeper Helper sections are submitted as follows: 1 ? ulcerated areas, 2 ? cutaneous and skeletal muscle resection margins, 3 ? bone marrow at the resection margin, 4 ? dorsalis pedis vessels, 5 ? anterior tibial vessels, 6 ? posterior tibial vessels, 7 & 8 ? bone underneath the area of ulceration. Casettes 4 to 8 are submitted after decalcification. The vessels will be sectioned at the time of embedding. / HERMILO:kai 08/28/17 TC:2 CPT: 74590, 07957, 43869 x2
[2017-08-28 10:10] LABS: Bedside Glucose 86 mg/dL (70-110)
--- NOTE | 2017-08-28 10:50 | OP.PCM_ITS ---
Report of Operation Date of Procedure: 08/28/17 Pre-Operative Diagnosis: Left lower extremity peripheral vascular disease with chronic ulcerations and pain Post-Operative Diagnosis: Left lower extremity peripheral vascular disease with chronic ulcerations and pain Surgery/Procedure Performed:: Left leg above-knee amputation Description of Surgical Findings:: Amputated 1 hand breadth above the patella shuttleless loom weaver: Mackenzie Anne Type of Anesthesia:: Spinal Anesthesiologist: Kisha Francisco Special Medications: 2 g Ancef Specimen's removed: Leg left Estimated Blood Loss (mL): 50 Fluids Replaced: 500 ML crystalloid Description of Procedure: Brief history operative indications: 67-year-old female with chronic peripheral vascular disease and chronic pain with ulcerations. Patient failed multiple attempts at debridement unable to heal wounds. She also had significant pain requiring significant medications. Bypass was attempted. After failed bypass with vascular surgery they recommended above-knee amputation based on her peripheral vascular studies. Risks and benefits of above-knee amputation were discussed with the patient including but not limited to blood loss, DVTs, PEs, neurovascular damage, infection, general risk of anesthesia, neuromas and chronic wound healing issues. We also discussed loss of life. Procedure: On the date of the procedure patient's left leg was marked in the preoperative area. Patient taken at the operating room where there transferred to the table in the supine position. They were set up for a anesthetic and then placed back in supine position. Once spinal was set up all bony prominences were identified well-padded. Tourniquet was placed on left upper thigh patient was prepped in a sterile fashion. Anesthesia assumed control the C-spine airway throughout this procedure and remained controlled throughout the procedure. Surgeons then scrubbed. Upon reentering the room after the leg was properly prepped leg was draped in standard orthopedic fashion. [place] incision was made with the plantar cut being 1 handbreadth above the top of the patella. Timeout was called and when agreed upon the side, the site, and the procedure be performed, patient's identity and antibiotics given. Esmarch bandage was used to exsanguinate the extremity and tourniquet was placed up to 250 mmHg. Incision was taken down through skin subtenons tissue fat down to fascia. Once the entire skin and fatty tissue incision was made Bovie dissection was taken down through tenderness and muscular tissues in a fish[place] fashion. On the medial side of the knee we located the neurovascular structures particularly the vascular lumen and clamped them off. They were then transected. Clamps remain. Saw was used to cut the femur at the plan section and the rasp was used to soften the bone edges. Posterior tissues were then completed in the transection. The nerve was identified clamped and transected. Once the leg was completely amputated it was sent on the back table in separate specimen. We then directed our attention to the vessels. Large vessels were tied off first with a stick tied and a nonstick type. 2 ties on both major vessels. The nerve did not appear to have major associated bleeding. At this time he was pulled and cut sharply and allowed to retract. Once this was done the tourniquet was let down and hemostasis was obtained. Wound was then copiously out normal saline. 1 g of TXA was given IV. Fascia was then closed using #1 Vicryl skin was closed using 2-0 Vicryl and 3-0 nylon. Silver dressing was placed, compressive dressing was placed. Patient was awakened by anesthesia and transferred to the PACU for recovery. Postoperative plan for the patient compressive dressing for 2 weeks. She can begin her Xarelto tomorrow. - Complications none - Admit VTE Documentation VTE Present on Admission: No VTE Mechan Device Prophylaxis: SCD's VTE Pharm Prophylaxis ordered?: Yes
[2017-08-28] MEDS: Cefazolin 2 GM in 0.9% Normal Saline 100 ML IV (11:00)
[2017-08-28] MEDS: oxyCODONE 5 MG Tablet PO ×3 (13:02→22:42)
[2017-08-28 15:01] LABS: Bedside Glucose 89 mg/dL (70-110)
[2017-08-28] MEDS: Lactated Ringers 1,000 ML 90 ML IV (15:19)
[2017-08-28] MEDS: Acetaminophen 500 MG Tablet 1000 MG PO ×2 (15:28→21:58)
[2017-08-28] MEDS: Metoprolol Tartrate 50 MG Tablet PO ×2 (15:28→21:57)
[2017-08-28] MEDS: Morphine 4 MG/ML Syringe IV ×3 (15:29→20:53)
--- NOTE | 2017-08-28 15:48 | PCM.PROGNOTE ---
Subjective: Pt resting comfortably in bed following Left AKA today indicated for severe PVD and non healing wounds. No acute issues. Family at bedside. - Physical Exam General: Alert, Oriented x3, Cooperative HEENT: Atraumatic, PERRLA, EOMI, Normocephalic Neck: Supple, No JVD, Negative Carotid Bruits Lungs: Clear to auscultation, Normal air movement Cardiovascular: Regular rate, No murmurs Abdomen: Bowel Sounds Present, Soft, Non Tender Extremities: No edema, Capillary Refill Less than 3 Seconds Skin: No rashes, No breakdown Musculoskeletal: No Tenderness to Palpation of Joints or Extremities Neurological: Cranial nerves II-XII grossly intact Psych/Mental Status: Normal Affect, Appropriate, Alert and oriented to time, place, person, mood and affect Vital Signs Temp Pulse Resp BP Pulse Ox 97.2 F L 86 18 204/95 H 100 08/28/17 15:05 08/28/17 15:28 08/28/17 15:05 08/28/17 15:05 08/28/17 15:05 Oxygen Flow Rate (L/min) 2 Oxygen Delivery Method Nasal Cannula Weight: 106 lb 15.986 oz Body Mass Index (BMI) 23.1 Finger Stick Blood Glucose 89 Intake and Output for Last 24 Hours 08/26/17 08/27/17 08/28/17 23:59 23:59 23:59 Intake Total 1100 / 1100 Balance 1100 / 1100 POC Glucose 08/28/17 08/28/17 14:47 09:47 POC Glucose 89 86 Medical Necessity - Tobacco Use Smoking Status: Current some day smoker Tobacco Use: Cigarettes Assessment/Plan All Active Problems (Last Reviewed 04/17/17 @ 14:47 by Red Millan MD) Shortness of breath (Acute) Fracture of fifth toe, left, closed (Acute) Abdominal pain (Acute) Chronic hypoxemic respiratory failure (Acute) Vertebral compression fracture (Acute) Hyponatremia (Resolved) Viral syndrome (Resolved) Cellulitis of foot (Ruled-out) 1. COPD with chronic hypoxic respiratory failure - chronically on 3 lpm. Lungs clear. No SOB. Continue albuterol, duonebs, incentive spirometer, pulmicort. Hx multiple admissions for COPD exacerbations. Per h/p pt still smokes 1/2 ppd. 2. HTN - elevated BP post op. add prn hydralazine. Continue home meds. 3. ? Hx DMt2 - pt takes no medication for this and last a1c well controlled at 4.9. 4. PVD with chronic nonhealing ulcers - s/p left aka per Dr. Hernandez. Afebrile, no wbc elevation. periop ancef given. Prior stents. On asa/plavix. Follows [facility]. 5. Hx DVT - recently started on xarelto per Dr. Burgos. Continue tomorrow. 6. Peripheral neuropathy - on high dose neurontin. 7. Hx ischemic CVA - asa/statin/plavix. 8. HLD - statin 9. Hx Seizures - took herself off Keppra last year. Reports seizure free. 10. Nicotine abuse - still smoking 1/2 ppd. Thank you for the opportunity to participate in the care of this patient. This patient was seen by Camron Mackey PA-C under the supervision of Dr. Carlson.
[2017-08-28] MEDS: Gabapentin 600 MG Tablet PO (16:27)
[2017-08-28] MEDS: Albuterol 2.5 MG/3 ML VIAL.NEB. INHALATION (17:16)
[2017-08-28] MEDS: hydrALAZINE 20 MG/ML Vial 5 MG IV (17:22)
[2017-08-28] MEDS: Cefazolin 1 GM/50 ML BAG IV (18:45)
[2017-08-28] MEDS: Ipratropium/Albuterol Sulfate 3 ML AMPUL.NEB INHALATION (20:20)
[2017-08-28] MEDS: Budesonide Respules 0.5 MG/2 ML AMPUL.NEB. INHALATION (20:21)
[2017-08-28] MEDS: proMETHazine 25 MG Tablet PO (20:51)
[2017-08-28] MEDS: 0.9% NaCl Peripheral Flush Adult/Peds IV ×2 (20:54→22:43)
[2017-08-28] MEDS: Ketorolac 15 MG/ML Vial IV (21:58)
[2017-08-28] MEDS: traZODone 50 MG Tablet PO (21:58)
[2017-08-28] MEDS: Atorvastatin Calcium 20 MG Tablet PO (21:58)
[2017-08-28] MEDS: Ondansetron 4 MG/2 ML Vial IV (22:42)
[2017-08-29] VITALS (13 sets, daily range): BP systolic 123–171; BP diastolic 60–73; PULSE 73–96; RESP 14–20; TEMP 36.9–37.4; O2SAT 95–100
[2017-08-29] MEDS: Cefazolin 1 GM/50 ML BAG IV (03:42)
[2017-08-29] MEDS: oxyCODONE 5 MG Tablet PO ×4 (03:46→22:53)
[2017-08-29] MEDS: hydrALAZINE 25 MG Tablet PO (03:53)
[2017-08-29] MEDS: Albuterol 2.5 MG/3 ML VIAL.NEB. INHALATION (03:58)
[2017-08-29] MEDS: Ketorolac 15 MG/ML Vial IV ×2 (05:10→13:14)
[2017-08-29] MEDS: 0.9% NaCl Peripheral Flush Adult/Peds IV ×4 (05:10→10:19)
[2017-08-29] MEDS: Metoprolol Tartrate 50 MG Tablet PO ×3 (05:16→21:08)
[2017-08-29] MEDS: proMETHazine 25 MG Tablet PO (05:16)
[2017-08-29] MEDS: Acetaminophen 500 MG Tablet 1000 MG PO ×3 (05:16→21:07)
[2017-08-29] MEDS: Morphine 4 MG/ML Syringe IV ×3 (06:49→14:15)
[2017-08-29] MEDS: Ipratropium/Albuterol Sulfate 3 ML AMPUL.NEB INHALATION ×3 (07:14→19:54)
[2017-08-29] MEDS: Budesonide Respules 0.5 MG/2 ML AMPUL.NEB. INHALATION ×2 (07:15→19:54)
--- NOTE | 2017-08-29 07:55 | PCM.PN.HOSP ---
Subjective: Patient with no acute events overnight per self and per nursing report; however, does note ongoing nausea with poor oral intake secondary despite oral Zofran and oral Phenergan usage. Patient denies any severe pain at this time and states pain in the left AKA controlled. Patient denies fevers, chills, nausea, emesis, abdominal pain, chest pain or dyspnea. Objective: Physical Examination: General: awake, alert, oriented x 3 and cooperative, seated upright in bed, fatigued appearance. Skin: normal color, turgor, no icterus, cyanosis. HEENT: AT/NC, EOMI, PERRLA, mildly dry MM. Lungs: Diminished BS BL, > bases, mild effort, no rales, ronchi or wheezing. Heart: Regular rate and rhythm; no gallop, rub audible. Abdomen: soft, thin habitus, mildly cachetic appearing, NTTP, ND, normal BS. Extremities: no cyanosis, clubbing, s/p L AKA, dressing in place, no drainage, no marked edema. Neurological: patient awake, alert, oriented x 3; cognitive function intact; pupils equally reactive to light and accomodation; cranial nerves II-XII grossly normal, moving all 4 extremities although limited given recent L AKA, strength accordingly moderately to severely globally decreased. Psychiatric: affect appears normal, no acute evidence of depressive or anxiety feelings. Vitals/I&O's: Vital Signs Temp Pulse Resp BP Pulse Ox 98.5 F 76 16 138/63 H 98 08/29/17 03:49 08/29/17 07:14 08/29/17 07:14 08/29/17 05:14 08/29/17 07:14 Oxygen Flow Rate (L/min) 2 Oxygen Delivery Method Nasal Cannula Weight: 106 lb 15.986 oz Body Mass Index (BMI) 23.1 Finger Stick Blood Glucose 89 Intake and Output for Last 24 Hours 08/27/17 08/28/17 08/29/17 23:59 23:59 23:59 Intake Total 1565 / 1565 2311 / 2311 Output Total 1654 / 1654 Balance 1565 / 1565 657 / 657 Laboratory Results 08/28/17 09:47: POC Glucose 86 08/28/17 14:47: POC Glucose 89 Current Medications Acetaminophen (Tylenol) 1,000 mg PO Q8 [facility] Last Admin: 08/29/17 05:16 Dose: 1,000 mg Albuterol Sulfate (Ventolin Aerosols) 2.5 mg INHALATION Q4H PRN PRN PRN Reason: SOB &/OR WHEEZING Last Admin: 08/29/17 03:58 Dose: 2.5 mg Albuterol/Ipratropium (Duoneb) 3 ml INHALATION Q6HWA.RT [facility] Last Admin: 08/29/17 07:14 Dose: 3 ml Aspirin (Aspirin, Baby) 81 mg PO DAILY@0800 [facility] Atorvastatin Calcium (Lipitor) 20 mg PO QHS [facility] Last Admin: 08/28/17 21:58 Dose: 20 mg Budesonide (Pulmicort Aerosol) 0.5 mg INHALATION Q12H.RT [facility] Last Admin: 08/29/17 07:15 Dose: 0.5 mg Clopidogrel Bisulfate (Plavix) 75 mg PO DAILY [facility] Famotidine (Pepcid) 20 mg PO DAILY [facility] Gabapentin (Neurontin) 600 mg PO TIDCM [facility] Last Admin: 08/28/17 16:27 Dose: 600 mg Hydralazine HCl (Apresoline) 25 mg PO Q8 PRN PRN Reason: SBP >160 Last Admin: 08/29/17 03:53 Dose: 25 mg Lactated Ringer's () 1,000 mls @ 90 mls/hr IV .Q11H7M [facility] Last Admin: 08/29/17 06:53 Dose: Not Given Ketorolac Tromethamine (Toradol) 15 mg IV Q8H [facility] Stop: 08/29/17 13:01 Last Admin: 08/29/17 05:10 Dose: 15 mg Linaclotide (Linzess) 145 mcg PO DAILY [facility] Metoprolol Tartrate (Lopressor (Beta Yany)) 50 mg PO TID [facility] Last Admin: 08/29/17 05:16 Dose: 50 mg Morphine Sulfate () 2 - 4 mg IV Q2H PRN PRN PRN Reason: Severe pain (6-10) Morphine Sulfate () 2 - 4 mg IV Q2H PRN PRN PRN Reason: Severe pain (6-10) Last Admin: 08/29/17 06:49 Dose: 4 mg Nutritional Formula (Lactose Free) (Ensure Enlive) 120 ml PO TID [facility] Last Admin: 08/29/17 05:21 Dose: 120 ml Ondansetron HCl (Zofran) 4 mg IV Q8H PRN PRN PRN Reason: Nausea Last Admin: 08/28/17 22:42 Dose: 4 mg Oxycodone HCl (Oxyir) 5 - 10 mg PO Q4H PRN PRN PRN Reason: PAIN Last Admin: 08/29/17 03:46 Dose: 10 mg Promethazine HCl (Phenergan Tablet) 25 mg PO Q8H PRN PRN PRN Reason: NAUSEA Last Admin: 08/29/17 05:16 Dose: 25 mg Rivaroxaban (Xarelto) 20 mg PO DAILY [facility] Sodium Chloride () 5 - 30 ml IV UD PRN PRN Reason: SALINE FLUSH Last Admin: 08/29/17 06:49 Dose: 10 ml Trazodone HCl (Desyrel) 50 mg PO QHS [facility] Last Admin: 08/28/17 21:58 Dose: 50 mg Medical Necessity - Tobacco Use Smoking Status: Current some day smoker Tobacco Use: Cigarettes Assessment/Plan All Active Problems (Last Reviewed 04/17/17 @ 14:47 by Red Millan MD) Shortness of breath (Acute) Fracture of fifth toe, left, closed (Acute) Abdominal pain (Acute) Chronic hypoxemic respiratory failure (Acute) Vertebral compression fracture (Acute) Hyponatremia (Resolved) Viral syndrome (Resolved) Cellulitis of foot (Ruled-out) The patient is a 67 y/o F w/ PMHx: Chronic COPD w/ Chronic Hypoxic Respiratory Failure (3L NC), HTN, HLD, ? Diabetes mellitus type II w/ Peripheral Neuropathy, Hx DVT on Xarelto recently started, Hx Ischemic CVA, Seizure disorder, Tobacco use who presents to [facility] on 08/28/17 for planned L AKA secondary to severe PVD and non-healing ulcers. (1) Severe PAD/PVD w/ Chronic Non-healing Ulcers, Neuropathy: s/p L AKA as noted, maintained on xarelto, asa/plavix (given xarelto concurrent use, consideration of ASA d/c), statin, BB, following w/ Dr. Burgos. Maintain on home neurontin regimen. PT, OT, CM per primary service discretion. Pain regimen, bowel regimen per primary service discretion. Will alter her anti-emetic regimen in order to improve sxs and oral intake. (2) Chronic COPD: Will maintain on home oxygen supplementation, continue ATC duonebs, PRN albuterol, HOB, IS parameters. (3) Diabetes mellitus type II: Not on regimen, recent HgbA1c 4.9% therefore defer accu checks w/ ISS. (4) Hypertension: Continue home regimen including metoprolol,, PRN hydralazine. (5) Hyperlipidemia: Continue home statin regimen. (6) Seizure disorder: Off keppra x 1 year, remains seizure free, encourage Neurology follow-up. (7) Tobacco Abuse: Encouraged cessation, inpatient consultation per RT, NR if desired. (8) Recent DVT: Continued on xarelto. (9) History of CVA: Maintain on asa/plavix, statin, BP regimen. (10) Moderate Appearing Calorie-Protein Malnutrition: Notably co-morbidities, muscle and fat loss apparent, nutrition consulted, supplements. (11) DVT Prophylaxis: SCD to alternate extremity, Xarelto. Code Visit Inpatient E&M: 29597 Subs Hosp L2
--- NOTE | 2017-08-29 08:03 | PN_ITS ---
Subjective: Patient with no acute events overnight per self and per nursing report; however , does note ongoing nausea with poor oral intake secondary despite oral Zofran and oral Phenergan usage. Patient denies any severe pain at this time and states pain in the left AKA controlled. Patient denies fevers, chills, nausea, emesis, abdominal pain, chest pain or dyspnea. Objective: Physical Examination: General: awake, alert, oriented x 3 and cooperative, seated upright in bed, fatigued appearance. Skin: normal color, turgor, no icterus, cyanosis. HEENT: AT/NC, EOMI, PERRLA, mildly dry MM. Lungs: Diminished BS BL, > bases, mild effort, no rales, ronchi or wheezing. Heart: Regular rate and rhythm; no gallop, rub audible. Abdomen: soft, thin habitus, mildly cachetic appearing, NTTP, ND, normal BS. Extremities: no cyanosis, clubbing, s/p L AKA, dressing in place, no drainage, no marked edema. Neurological: patient awake, alert, oriented x 3; cognitive function intact; pupils equally reactive to light and accomodation; cranial nerves II-XII grossly normal, moving all 4 extremities although limited given recent L AKA, strength accordingly moderately to severely globally decreased. Psychiatric: affect appears normal, no acute evidence of depressive or anxiety feelings. Vitals/I&O's: Vital Signs Temp Pulse Resp BP Pulse Ox 98.5 F 76 16 138/63 H 98 08/29/17 03:49 08/29/17 07:14 08/29/17 07:14 08/29/17 05:14 08/29/17 07:14 Oxygen Flow Rate (L/min) 2 Oxygen Delivery Method Nasal Cannula Weight: 106 lb 15.986 oz Body Mass Index (BMI) 23.1 Finger Stick Blood Glucose 89 Intake and Output for Last 24 Hours 08/27/17 08/28/17 08/29/17 23:59 23:59 23:59 Intake Total 1565 / 1565 2311 / 2311 Output Total 1654 / 1654 Balance 1565 / 1565 657 / 657 Laboratory Results 08/28/17 09:47: POC Glucose 86 08/28/17 14:47: POC Glucose 89 Current Medications Acetaminophen (Tylenol) 1,000 mg PO Q8 [facility] Last Admin: 08/29/17 05:16 Dose: 1,000 mg Albuterol Sulfate (Ventolin Aerosols) 2.5 mg INHALATION Q4H PRN PRN PRN Reason: SOB &/OR WHEEZING Last Admin: 08/29/17 03:58 Dose: 2.5 mg Albuterol/Ipratropium (Duoneb) 3 ml INHALATION Q6HWA.RT [facility] Last Admin: 08/29/17 07:14 Dose: 3 ml Aspirin (Aspirin, Baby) 81 mg PO DAILY@0800 [facility] Atorvastatin Calcium (Lipitor) 20 mg PO QHS [facility] Last Admin: 08/28/17 21:58 Dose: 20 mg Budesonide (Pulmicort Aerosol) 0.5 mg INHALATION Q12H.RT [facility] Last Admin: 08/29/17 07:15 Dose: 0.5 mg Clopidogrel Bisulfate (Plavix) 75 mg PO DAILY [facility] Famotidine (Pepcid) 20 mg PO DAILY [facility] Gabapentin (Neurontin) 600 mg PO TIDCM [facility] Last Admin: 08/28/17 16:27 Dose: 600 mg Hydralazine HCl (Apresoline) 25 mg PO Q8 PRN PRN Reason: SBP >160 Last Admin: 08/29/17 03:53 Dose: 25 mg Lactated Ringer's () 1,000 mls @ 90 mls/hr IV .Q11H7M [facility] Last Admin: 08/29/17 06:53 Dose: Not Given Ketorolac Tromethamine (Toradol) 15 mg IV Q8H [facility] Stop: 08/29/17 13:01 Last Admin: 08/29/17 05:10 Dose: 15 mg Linaclotide (Linzess) 145 mcg PO DAILY [facility] Metoprolol Tartrate (Lopressor (Beta Yany)) 50 mg PO TID [facility] Last Admin: 08/29/17 05:16 Dose: 50 mg Morphine Sulfate () 2 - 4 mg IV Q2H PRN PRN PRN Reason: Severe pain (6-10) Morphine Sulfate () 2 - 4 mg IV Q2H PRN PRN PRN Reason: Severe pain (6-10) Last Admin: 08/29/17 06:49 Dose: 4 mg Nutritional Formula (Lactose Free) (Ensure Enlive) 120 ml PO TID [facility] Last Admin: 08/29/17 05:21 Dose: 120 ml Ondansetron HCl (Zofran) 4 mg IV Q8H PRN PRN PRN Reason: Nausea Last Admin: 08/28/17 22:42 Dose: 4 mg Oxycodone HCl (Oxyir) 5 - 10 mg PO Q4H PRN PRN PRN Reason: PAIN Last Admin: 08/29/17 03:46 Dose: 10 mg Promethazine HCl (Phenergan Tablet) 25 mg PO Q8H PRN PRN PRN Reason: NAUSEA Last Admin: 08/29/17 05:16 Dose: 25 mg Rivaroxaban (Xarelto) 20 mg PO DAILY [facility] Sodium Chloride () 5 - 30 ml IV UD PRN PRN Reason: SALINE FLUSH Last Admin: 08/29/17 06:49 Dose: 10 ml Trazodone HCl (Desyrel) 50 mg PO QHS [facility] Last Admin: 08/28/17 21:58 Dose: 50 mg Medical Necessity - Tobacco Use Smoking Status: Current some day smoker Tobacco Use: Cigarettes Assessment/Plan All Active Problems (Last Reviewed 04/17/17 @ 14:47 by Red Millan MD) Shortness of breath (Acute) Fracture of fifth toe, left, closed (Acute) Abdominal pain (Acute) Chronic hypoxemic respiratory failure (Acute) Vertebral compression fracture (Acute) Hyponatremia (Resolved) Viral syndrome (Resolved) Cellulitis of foot (Ruled-out) The patient is a 67 y/o F w/ PMHx: Chronic COPD w/ Chronic Hypoxic Respiratory Failure (3L NC), HTN, HLD, ? Diabetes mellitus type II w/ Peripheral Neuropathy , Hx DVT on Xarelto recently started, Hx Ischemic CVA, Seizure disorder, Tobacco use who presents to the [facility] on 08/28/17 for planned L AKA secondary to severe PVD and non-healing ulcers. (1) Severe PAD/PVD w/ Chronic Non-healing Ulcers, Neuropathy: s/p L AKA as noted , maintained on xarelto, asa/plavix (given xarelto concurrent use, consideration of ASA d/c), statin, BB, following w/ Dr. Burgos. Maintain on home neurontin regimen. PT, OT, CM per primary service discretion. Pain regimen , bowel regimen per primary service discretion. Will alter her anti-emetic regimen in order to improve sxs and oral intake. (2) Chronic COPD: Will maintain on home oxygen supplementation, continue ATC duonebs, PRN albuterol, HOB, IS parameters. (3) Diabetes mellitus type II: Not on regimen, recent HgbA1c 4.9% therefore defer accu checks w/ ISS. (4) Hypertension: Continue home regimen including metoprolol,, PRN hydralazine. (5) Hyperlipidemia: Continue home statin regimen. (6) Seizure disorder: Off keppra x 1 year, remains seizure free, encourage Neurology follow-up. (7) Tobacco Abuse: Encouraged cessation, inpatient consultation per RT, NR if desired. (8) Recent DVT: Continued on xarelto. (9) History of CVA: Maintain on asa/plavix, statin, BP regimen. (10) Moderate Appearing Calorie-Protein Malnutrition: Notably co-morbidities, muscle and fat loss apparent, nutrition consulted, supplements. (11) DVT Prophylaxis: SCD to alternate extremity, Xarelto. Code Visit Inpatient E&M: 73788 Subs Hosp L2
--- NOTE | 2017-08-29 08:42 | PCM.PN.ORT ---
Subjective: The patient was sitting in bed upon examination. Patient denies any chest pain, dizziness, lightheadedness, nausea or vomiting, or calf pain. Patient does report pain on the surgical side but states pain medications are helpful. No adverse overnight events. Patient is wishing to go to the transitional care unit at [facility]. Patient states she was on 3 L of oxygen prior to surgery for her COPD with chronic hypoxic respiratory failure. Objective: Vital signs stable and afebrile. Sensation is intact to light touch to left lower extremity. Compressive dressing is over stump. Plan will be for dressing change on postoperative day #2 Dressing is clean dry and intact without breakthrough drainage. - Physical Exam Vital Signs Temp Pulse Resp BP Pulse Ox 98.5 F 76 16 138/63 H 98 08/29/17 03:49 08/29/17 07:14 08/29/17 07:14 08/29/17 05:14 08/29/17 07:14 Oxygen Flow Rate (L/min) 2 Oxygen Delivery Method Nasal Cannula Weight: 48.534 kg Body Mass Index (BMI) 23.1 Finger Stick Blood Glucose 89 Intake and Output for Last 24 Hours 08/27/17 08/28/17 08/29/17 23:59 23:59 23:59 Intake Total 1565 / 1565 2311 / 2311 Output Total 1654 / 1654 Balance 1565 / 1565 657 / 657 POC Glucose 08/28/17 08/28/17 14:47 09:47 POC Glucose 89 86 Medical Necessity - Tobacco Use Smoking Status: Current some day smoker Tobacco Use: Cigarettes Assessment/Plan All Active Problems (Last Reviewed 04/17/17 @ 14:47 by Red Millan MD) Shortness of breath (Acute) Fracture of fifth toe, left, closed (Acute) Abdominal pain (Acute) Chronic hypoxemic respiratory failure (Acute) Vertebral compression fracture (Acute) Hyponatremia (Resolved) Viral syndrome (Resolved) Cellulitis of foot (Ruled-out) 1. S/P left [id number] amputation POD #1 2. Continue Pain Medications: Tylenol and Oxyir 3. Dressing: Compressive dressing ?2 weeks, plan will be for dressing change on postoperative day #2. 4. Encouraged Incentive Spirometry 5. Continue postoperative medical management per medicine 6. Disposition: Patient currently takes Plavix and Xarelto due to previous blood clot as well as ischemic CVA. She is also on 3 L of oxygen for COPD with chronic hypoxic respiratory failure. Patient wishes to go to transitional care unit upon discharge. Case management will be involved with placement..
--- NOTE | 2017-08-29 08:51 | PN.ORTHO_ITS ---
Subjective: The patient was sitting in bed upon examination. Patient denies any chest pain , dizziness, lightheadedness, nausea or vomiting, or calf pain. Patient does report pain on the surgical side but states pain medications are helpful. No adverse overnight events. Patient is wishing to go to the transitional care unit at [facility]. Patient states she was on 3 L of oxygen prior to surgery for her COPD with chronic hypoxic respiratory failure. Objective: Vital signs stable and afebrile. Sensation is intact to light touch to left lower extremity. Compressive dressing is over stump. Plan will be for dressing change on postoperative day # 2 Dressing is clean dry and intact without breakthrough drainage. - Physical Exam Vital Signs Temp Pulse Resp BP Pulse Ox 98.5 F 76 16 138/63 H 98 08/29/17 03:49 08/29/17 07:14 08/29/17 07:14 08/29/17 05:14 08/29/17 07:14 Oxygen Flow Rate (L/min) 2 Oxygen Delivery Method Nasal Cannula Weight: 48.534 kg Body Mass Index (BMI) 23.1 Finger Stick Blood Glucose 89 Intake and Output for Last 24 Hours 08/27/17 08/28/17 08/29/17 23:59 23:59 23:59 Intake Total 1565 / 1565 2311 / 2311 Output Total 1654 / 1654 Balance 1565 / 1565 657 / 657 POC Glucose 08/28/17 08/28/17 14:47 09:47 POC Glucose 89 86 Medical Necessity - Tobacco Use Smoking Status: Current some day smoker Tobacco Use: Cigarettes Assessment/Plan All Active Problems (Last Reviewed 04/17/17 @ 14:47 by Red Millan MD) Shortness of breath (Acute) Fracture of fifth toe, left, closed (Acute) Abdominal pain (Acute) Chronic hypoxemic respiratory failure (Acute) Vertebral compression fracture (Acute) Hyponatremia (Resolved) Viral syndrome (Resolved) Cellulitis of foot (Ruled-out) 1. S/P left [id number] amputation POD #1 2. Continue Pain Medications: Tylenol and Oxyir 3. Dressing: Compressive dressing ?2 weeks, plan will be for dressing change on postoperative day #2. 4. Encouraged Incentive Spirometry 5. Continue postoperative medical management per medicine 6. Disposition: Patient currently takes Plavix and Xarelto due to previous blood clot as well as ischemic CVA. She is also on 3 L of oxygen for COPD with chronic hypoxic respiratory failure. Patient wishes to go to transitional care unit upon discharge. Case management will be involved with placement..
[2017-08-29] MEDS: Linacolotide 145 MCG CAPSULE PO (08:54)
[2017-08-29] MEDS: Gabapentin 600 MG Tablet PO ×3 (08:54→17:15)
[2017-08-29] MEDS: Rivaroxaban 20 MG Tablet PO (08:55)
[2017-08-29] MEDS: Famotidine 20 MG Tablet PO (08:55)
[2017-08-29] MEDS: Clopidogrel Bisulfate 75 MG Tablet PO (08:55)
[2017-08-29] MEDS: Ondansetron 4 MG/2 ML Vial IV (10:19)
[2017-08-29] MEDS: Lactated Ringers 1,000 ML 90 ML IV ×2 (11:25→21:39)
--- NOTE | 2017-08-29 12:57 | CASEMGMT ---
Addendum entered by Kayleigh Webb 08/29/17 13:13: YASMIN faxed H+P to Chyna in TCU Original Note: Social Work Note Henry BEAN updated this worker that pt is interested in TCU at discharge as pt has been there before in the past. SW in to meet with pt. SW introduced self and role at [facility]. Pt is alert and orientated x3. Pt confirms that she is interested in TCU at discharge. YASMIN placed a call to referral line and spoke with Mee. Mee states that TCU will have a bed Saturday for pt. YASMIN placed pt on list for TCU Saturday. YASMIN informed Mee to submit for pre-cert when PT/OT are available. Mee states understanding. Plan. TCU pending pre-cert Kayleigh Webb [employer], [employer]
[2017-08-29] MEDS: proMETHazine 25 MG/ML Syringe 6.25 MG IV ×2 (17:15→22:56)
[2017-08-29] MEDS: Morphine 2 MG/ML Syringe IV ×3 (18:53→23:58)
[2017-08-29] MEDS: traZODone 50 MG Tablet PO (21:08)
[2017-08-29] MEDS: Atorvastatin Calcium 20 MG Tablet PO (21:09)
[2017-08-30] VITALS (13 sets, daily range): BP systolic 103–175; BP diastolic 50–77; PULSE 68–98; RESP 14–20; TEMP 37.1–37.8; O2SAT 96–98
[2017-08-30] MEDS: oxyCODONE 5 MG Tablet PO ×3 (03:10→16:58)
[2017-08-30] MEDS: Albuterol 2.5 MG/3 ML VIAL.NEB. INHALATION (03:26)
[2017-08-30] MEDS: Morphine 2 MG/ML Syringe IV (04:34)
[2017-08-30] MEDS: Ondansetron 4 MG/2 ML Vial IV (04:44)
--- NOTE | 2017-08-30 04:51 | NURSING ---
Earlier in the shift, Mikayla NAVA and I had wasted an Oxyir in the accudose. The pill had fallen under the accudose machine. Just now Mikayla and I were able to find the pill under the accudose and it was properly disposed of by putting it down the sink.
[2017-08-30] MEDS: Acetaminophen 500 MG Tablet 1000 MG PO ×3 (06:31→21:13)
[2017-08-30] MEDS: Metoprolol Tartrate 50 MG Tablet PO ×3 (06:35→21:12)
[2017-08-30] MEDS: hydrALAZINE 25 MG Tablet PO (06:42)
[2017-08-30] MEDS: Ipratropium/Albuterol Sulfate 3 ML AMPUL.NEB INHALATION ×3 (06:46→20:20)
[2017-08-30] MEDS: Budesonide Respules 0.5 MG/2 ML AMPUL.NEB. INHALATION ×2 (06:48→20:30)
--- NOTE | 2017-08-30 08:04 | PCM.PN.ORT ---
Subjective: The patient was sitting in bed upon examination. Patient denies any chest pain, shortness of breath, dizziness, lightheadedness, vomiting, or calf pain. Pain is controlled on medications. No adverse overnight events. Patient still complains of some nausea but has slightly improved. She does complain of phantom pain in the left leg. Objective: Vital signs stable and afebrile. Sensation is intact to light touch to left lower extremity. Dressing removed with ABD and compressive dressing placed. Incision looks well without active drainage with sutures intact. Patient does complain of phantom pain - Physical Exam General: Alert, Oriented x3, Cooperative, No apparent distress Vital Signs Temp Pulse Resp BP Pulse Ox 98.7 F 88 20 H 175/77 H 97 08/30/17 03:00 08/30/17 06:46 08/30/17 06:46 08/30/17 06:42 08/30/17 06:46 Oxygen Flow Rate (L/min) 3 Oxygen Delivery Method Nasal Cannula Weight: 48.534 kg Body Mass Index (BMI) 23.1 Finger Stick Blood Glucose 89 Intake and Output for Last 24 Hours 08/28/17 08/29/17 08/30/17 23:59 23:59 23:59 Intake Total 1565 / 1565 3883 / 3883 2112 / 2112 Output Total 1854 / 1854 1750 / 1750 Balance 1565 / 1565 2028 / 2028 362 / 362 Medical Necessity - Tobacco Use Smoking Status: Current some day smoker Tobacco Use: Cigarettes Assessment/Plan All Active Problems (Last Reviewed 04/17/17 @ 14:47 by Red Millan MD) Shortness of breath (Acute) Fracture of fifth toe, left, closed (Acute) Abdominal pain (Acute) Chronic hypoxemic respiratory failure (Acute) Vertebral compression fracture (Acute) Hyponatremia (Resolved) Viral syndrome (Resolved) Cellulitis of foot (Ruled-out) 1. S/P left [id number] amputation POD #2 2. Continue Pain Medications: Tylenol and Oxyir 3. Dressing: Postoperative dressing was changed, incision looks well with no active drainage and sutures intact. ABD with Kerlix and Tyler wrap were applied for compressive dressing. 4. Encouraged Incentive Spirometry 5. Continue postoperative medical management per medicine 6. Disposition: Patient has been accepted into the TCU tomorrow pending precertification from insurance. Patient currently takes Plavix and Xarelto due to previous blood clot as well as ischemic CVA. She is also on 3 L of oxygen for COPD with chronic hypoxic respiratory failure. Case management will be involved with placement.
--- NOTE | 2017-08-30 08:09 | PN.ORTHO_ITS ---
Subjective: The patient was sitting in bed upon examination. Patient denies any chest pain , shortness of breath, dizziness, lightheadedness, vomiting, or calf pain. Pain is controlled on medications. No adverse overnight events. Patient still complains of some nausea but has slightly improved. She does complain of phantom pain in the left leg. Objective: Vital signs stable and afebrile. Sensation is intact to light touch to left lower extremity. Dressing removed with ABD and compressive dressing placed. Incision looks well without active drainage with sutures intact. Patient does complain of phantom pain - Physical Exam General: Alert, Oriented x3, Cooperative, No apparent distress Vital Signs Temp Pulse Resp BP Pulse Ox 98.7 F 88 20 H 175/77 H 97 08/30/17 03:00 08/30/17 06:46 08/30/17 06:46 08/30/17 06:42 08/30/17 06:46 Oxygen Flow Rate (L/min) 3 Oxygen Delivery Method Nasal Cannula Weight: 48.534 kg Body Mass Index (BMI) 23.1 Finger Stick Blood Glucose 89 Intake and Output for Last 24 Hours 08/28/17 08/29/17 08/30/17 23:59 23:59 23:59 Intake Total 1565 / 1565 3883 / 3883 2112 / 2112 Output Total 1854 / 1854 1750 / 1750 Balance 1565 / 1565 2028 / 2028 362 / 362 Medical Necessity - Tobacco Use Smoking Status: Current some day smoker Tobacco Use: Cigarettes Assessment/Plan All Active Problems (Last Reviewed 04/17/17 @ 14:47 by Red Millan MD) Shortness of breath (Acute) Fracture of fifth toe, left, closed (Acute) Abdominal pain (Acute) Chronic hypoxemic respiratory failure (Acute) Vertebral compression fracture (Acute) Hyponatremia (Resolved) Viral syndrome (Resolved) Cellulitis of foot (Ruled-out) 1. S/P left [id number] amputation POD #2 2. Continue Pain Medications: Tylenol and Oxyir 3. Dressing: Postoperative dressing was changed, incision looks well with no active drainage and sutures intact. ABD with Kerlix and Tyler wrap were applied for compressive dressing. 4. Encouraged Incentive Spirometry 5. Continue postoperative medical management per medicine 6. Disposition: Patient has been accepted into the TCU tomorrow pending precertification from insurance. Patient currently takes Plavix and Xarelto due to previous blood clot as well as ischemic CVA. She is also on 3 L of oxygen for COPD with chronic hypoxic respiratory failure. Case management will be involved with placement.
[2017-08-30] MEDS: Lactated Ringers 1,000 ML 90 ML IV (08:48)
[2017-08-30] MEDS: Gabapentin 600 MG Tablet PO ×3 (08:51→16:59)
[2017-08-30] MEDS: Multivitamins,Ther W-Minerals Tablet 1 TABLET PO (08:51)
--- NOTE | 2017-08-30 10:58 | PCM.PN.HOSP ---
Subjective: The patient is a 67 y/o F w/ PMHx: Chronic COPD w/ Chronic Hypoxic Respiratory Failure (3L NC), HTN, HLD, ? Diabetes mellitus type II w/ Peripheral Neuropathy, Hx DVT on Xarelto recently started, Hx Ischemic CVA, Seizure disorder, Tobacco use who presents to the [facility] on 08/28/17 for planned L AKA secondary to severe PVD and non-healing ulcers. s/p L AKA as noted, maintained on xarelto, asa/plavix (given xarelto concurrent use, consideration of ASA d/c), statin, BB, following w/ Dr. Burgos. Maintain on home neurontin regimen. Pain regimen, bowel regimen per primary service discretion. 08/29/17 altered anti-emetic regimen with improvement, onset nausea again this AM following dressing change but expect improvement w/ pain regimen. Monitor oral intake. Planned TCU transition per Orthopedic surgery once authorization obtained. ATC duonebs, PRN albuterol, HOB, IS parameters for chronic COPD. Of note DM II history; however, recent HgbA1c 4.9% therefore defer accu checks w/ ISS. Patient notes no acute events overnight per self or per nursing report. This morning she does have onset of nausea again but this is following recent dressing change per orthopedic surgery otherwise prior to this she had improved with transition to IV Zofran and Phenergan rotating. Patient denies fevers, chills, emesis, abdominal pain, chest pain or dyspnea. Objective: Physical Examination: General: awake, alert, oriented x 3 and cooperative, seated upright in bed, improved appearance, recent bedside bathing. Skin: normal color, turgor, no icterus, cyanosis, L AKA dressing in place, recent change per Ortho this AM. HEENT: AT/NC, EOMI, PERRLA, improved MMM. Lungs: Diminished BS BL, > bases, mild effort, no rales, ronchi or wheezing. Heart: Regular rate and rhythm; no gallop, rub audible. Abdomen: soft, thin habitus, mildly cachetic appearing, NTTP, ND, normal BS. Extremities: no cyanosis, clubbing, s/p L AKA, dressing in place, no drainage, no marked edema. Neurological: patient awake, alert, oriented x 3; cognitive function intact; pupils equally reactive to light and accomodation; cranial nerves II-XII grossly normal, moving all 4 extremities although limited given recent L AKA, strength accordingly moderately to severely globally decreased. Psychiatric: affect appears normal, no acute evidence of depressive or anxiety feelings. Vitals/I&O's: Vital Signs Temp Pulse Resp BP Pulse Ox 100.1 F H 85 16 124/62 H 97 08/30/17 08:30 08/30/17 08:30 08/30/17 08:30 08/30/17 08:30 08/30/17 08:30 Oxygen Flow Rate (L/min) 3 Oxygen Delivery Method Nasal Cannula Weight: 106 lb 15.986 oz Body Mass Index (BMI) 23.1 Finger Stick Blood Glucose 89 Intake and Output for Last 24 Hours 08/28/17 08/29/17 08/30/17 23:59 23:59 23:59 Intake Total 1565 / 1565 3883 / 3883 2111 / 2112 Output Total 1854 / 1854 1750 / 1750 Balance 1565 / 1565 2028 / 2028 362 / 362 Current Medications Acetaminophen (Tylenol) 1,000 mg PO Q8 [facility] Last Admin: 08/30/17 06:31 Dose: 1,000 mg Albuterol Sulfate (Ventolin Aerosols) 2.5 mg INHALATION Q4H PRN PRN PRN Reason: SOB &/OR WHEEZING Last Admin: 08/30/17 03:26 Dose: 2.5 mg Albuterol/Ipratropium (Duoneb) 3 ml INHALATION Q6HWA.RT [facility] Last Admin: 08/30/17 06:46 Dose: 3 ml Atorvastatin Calcium (Lipitor) 20 mg PO QHS [facility] Last Admin: 08/29/17 21:09 Dose: 20 mg Budesonide (Pulmicort Aerosol) 0.5 mg INHALATION Q12H.RT [facility] Last Admin: 08/30/17 06:48 Dose: 0.5 mg Clopidogrel Bisulfate (Plavix) 75 mg PO DAILY [facility] Last Admin: 08/29/17 08:55 Dose: 75 mg Famotidine (Pepcid) 20 mg PO DAILY [facility] Last Admin: 08/29/17 08:55 Dose: 20 mg Gabapentin (Neurontin) 600 mg PO TIDCM [facility] Last Admin: 08/30/17 08:51 Dose: 600 mg Hydralazine HCl (Apresoline) 25 mg PO Q8 PRN PRN Reason: SBP >160 Last Admin: 08/30/17 06:42 Dose: 25 mg Lactated Ringer's () 1,000 mls @ 90 mls/hr IV .Q11H7M [facility] Last Admin: 08/30/17 08:48 Dose: 90 mls/hr Linaclotide (Linzess) 145 mcg PO DAILY [facility] Last Admin: 08/29/17 08:54 Dose: 145 mcg Metoprolol Tartrate (Lopressor (Beta Yany)) 50 mg PO TID [facility] Last Admin: 08/30/17 06:35 Dose: 50 mg Morphine Sulfate () 2 - 4 mg IV Q2H PRN PRN PRN Reason: Severe pain (6-10) Last Admin: 08/30/17 04:34 Dose: 2 mg Morphine Sulfate () 2 - 4 mg IV Q2H PRN PRN PRN Reason: Severe pain (6-10) Last Admin: 08/29/17 14:15 Dose: 4 mg Multivitamins/Minerals ([facility]ivitamin With Minerals) [facility] Last Admin: 08/30/17 08:51 Dose: 1 tablet Nutritional Formula (Lactose Free) (Ensure Enlive) 120 ml PO TID [facility] Last Admin: 08/30/17 06:31 Dose: 120 ml Ondansetron HCl (Zofran) 4 mg IV Q6H PRN PRN PRN Reason: nausea, emesis Last Admin: 08/30/17 04:44 Dose: 4 mg Oxycodone HCl (Oxyir) 5 - 10 mg PO Q4H PRN PRN PRN Reason: PAIN Last Admin: 08/30/17 08:49 Dose: 10 mg Promethazine HCl (Phenergan) 6.25 mg IV Q4H PRN PRN PRN Reason: NAUSEA/VOMITING Last Admin: 08/29/17 22:56 Dose: 6.25 mg Rivaroxaban (Xarelto) 20 mg PO DAILY [facility] Last Admin: 08/29/17 08:55 Dose: 20 mg Sodium Chloride () 5 - 30 ml IV UD PRN PRN Reason: SALINE FLUSH Last Admin: 08/29/17 10:19 Dose: 10 ml Trazodone HCl (Desyrel) 50 mg PO QHS [facility] Last Admin: 08/29/17 21:08 Dose: 50 mg Medical Necessity - Tobacco Use Smoking Status: Current some day smoker Tobacco Use: Cigarettes Assessment/Plan All Active Problems (Last Reviewed 04/17/17 @ 14:47 by Red Millan MD) Shortness of breath (Acute) Fracture of fifth toe, left, closed (Acute) Abdominal pain (Acute) Chronic hypoxemic respiratory failure (Acute) Vertebral compression fracture (Acute) Hyponatremia (Resolved) Viral syndrome (Resolved) Cellulitis of foot (Ruled-out) The patient is a 67 y/o F w/ PMHx: Chronic COPD w/ Chronic Hypoxic Respiratory Failure (3L NC), HTN, HLD, ? Diabetes mellitus type II w/ Peripheral Neuropathy, Hx DVT on Xarelto recently started, Hx Ischemic CVA, Seizure disorder, Tobacco use who presents to the [facility] on 08/28/17 for planned L AKA secondary to severe PVD and non-healing ulcers. (1) Severe PAD/PVD w/ Chronic Non-healing Ulcers, Neuropathy: s/p L AKA as noted, maintained on xarelto, asa/plavix (given xarelto concurrent use, consideration of ASA d/c), statin, BB, following w/ Dr. Burgos. Maintain on home neurontin regimen. PT, OT, CM per primary service discretion. Pain regimen, bowel regimen per primary service discretion. 08/29/17 altered anti-emetic regimen with improvement, onset nausea again this AM following dressing change but expect improvement w/ pain regimen. Monitor oral intake. Planned TCU transition per Orthopedic surgery once authorization obtained. (2) Chronic COPD: Will maintain on home oxygen supplementation, continue ATC duonebs, PRN albuterol, HOB, IS parameters. (3) Diabetes mellitus type II: Not on regimen, recent HgbA1c 4.9% therefore defer accu checks w/ ISS. (4) Hypertension: Continue home regimen including metoprolol,, PRN hydralazine. (5) Hyperlipidemia: Continue home statin regimen. (6) Seizure disorder: Off keppra x 1 year, remains seizure free, encourage Neurology follow-up. (7) Tobacco Abuse: Encouraged cessation, inpatient consultation per RT, NR if desired. (8) Recent DVT: Continued on xarelto. (9) History of CVA: Maintain on asa/plavix, statin, BP regimen. (10) Moderate Appearing Calorie-Protein Malnutrition: Notably co-morbidities, muscle and fat loss apparent, nutrition consulted, supplements. (11) DVT Prophylaxis: SCD to alternate extremity, Juice. Code Visit Inpatient E&M: 40589 Subs Hosp L2
--- NOTE | 2017-08-30 11:02 | PN_ITS ---
Subjective: The patient is a 67 y/o F w/ PMHx: Chronic COPD w/ Chronic Hypoxic Respiratory Failure (3L NC), HTN, HLD, ? Diabetes mellitus type II w/ Peripheral Neuropathy , Hx DVT on Xarelto recently started, Hx Ischemic CVA, Seizure disorder, Tobacco use who presents to the [facility] on 08/28/17 for planned L AKA secondary to severe PVD and non-healing ulcers. s/p L AKA as noted, maintained on xarelto, asa/plavix (given xarelto concurrent use, consideration of ASA d/c), statin, BB , following w/ Dr. Burgos. Maintain on home neurontin regimen. Pain regimen, bowel regimen per primary service discretion. 08/29/17 altered anti-emetic regimen with improvement, onset nausea again this AM following dressing change but expect improvement w/ pain regimen. Monitor oral intake. Planned TCU transition per Orthopedic surgery once authorization obtained. ATC duonebs, PRN albuterol, HOB, IS parameters for chronic COPD. Of note DM II history; however, recent HgbA1c 4.9% therefore defer accu checks w/ ISS. Patient notes no acute events overnight per self or per nursing report. This morning she does have onset of nausea again but this is following recent dressing change per orthopedic surgery otherwise prior to this she had improved with transition to IV Zofran and Phenergan rotating. Patient denies fevers, chills, emesis, abdominal pain, chest pain or dyspnea. Objective: Physical Examination: General: awake, alert, oriented x 3 and cooperative, seated upright in bed, improved appearance, recent bedside bathing. Skin: normal color, turgor, no icterus, cyanosis, L AKA dressing in place, recent change per Ortho this AM. HEENT: AT/NC, EOMI, PERRLA, improved MMM. Lungs: Diminished BS BL, > bases, mild effort, no rales, ronchi or wheezing. Heart: Regular rate and rhythm; no gallop, rub audible. Abdomen: soft, thin habitus, mildly cachetic appearing, NTTP, ND, normal BS. Extremities: no cyanosis, clubbing, s/p L AKA, dressing in place, no drainage, no marked edema. Neurological: patient awake, alert, oriented x 3; cognitive function intact; pupils equally reactive to light and accomodation; cranial nerves II-XII grossly normal, moving all 4 extremities although limited given recent L AKA, strength accordingly moderately to severely globally decreased. Psychiatric: affect appears normal, no acute evidence of depressive or anxiety feelings. Vitals/I&O's: Vital Signs Temp Pulse Resp BP Pulse Ox 100.1 F H 85 16 124/62 H 97 08/30/17 08:30 08/30/17 08:30 08/30/17 08:30 08/30/17 08:30 08/30/17 08:30 Oxygen Flow Rate (L/min) 3 Oxygen Delivery Method Nasal Cannula Weight: 106 lb 15.986 oz Body Mass Index (BMI) 23.1 Finger Stick Blood Glucose 89 Intake and Output for Last 24 Hours 08/28/17 08/29/17 08/30/17 23:59 23:59 23:59 Intake Total 1565 / 1565 3883 / 3883 2111 / 2112 Output Total 1854 / 1854 1750 / 1750 Balance 1565 / 1565 2028 / 2028 362 / 362 Current Medications Acetaminophen (Tylenol) 1,000 mg PO Q8 [facility] Last Admin: 08/30/17 06:31 Dose: 1,000 mg Albuterol Sulfate (Ventolin Aerosols) 2.5 mg INHALATION Q4H PRN PRN PRN Reason: SOB &/OR WHEEZING Last Admin: 08/30/17 03:26 Dose: 2.5 mg Albuterol/Ipratropium (Duoneb) 3 ml INHALATION Q6HWA.RT [facility] Last Admin: 08/30/17 06:46 Dose: 3 ml Atorvastatin Calcium (Lipitor) 20 mg PO QHS [facility] Last Admin: 08/29/17 21:09 Dose: 20 mg Budesonide (Pulmicort Aerosol) 0.5 mg INHALATION Q12H.RT [facility] Last Admin: 08/30/17 06:48 Dose: 0.5 mg Clopidogrel Bisulfate (Plavix) 75 mg PO DAILY [facility] Last Admin: 08/29/17 08:55 Dose: 75 mg Famotidine (Pepcid) 20 mg PO DAILY [facility] Last Admin: 08/29/17 08:55 Dose: 20 mg Gabapentin (Neurontin) 600 mg PO TIDCM [facility] Last Admin: 08/30/17 08:51 Dose: 600 mg Hydralazine HCl (Apresoline) 25 mg PO Q8 PRN PRN Reason: SBP >160 Last Admin: 08/30/17 06:42 Dose: 25 mg Lactated Ringer's () 1,000 mls @ 90 mls/hr IV .Q11H7M [facility] Last Admin: 08/30/17 08:48 Dose: 90 mls/hr Linaclotide (Linzess) 145 mcg PO DAILY [facility] Last Admin: 08/29/17 08:54 Dose: 145 mcg Metoprolol Tartrate (Lopressor (Beta Yany)) 50 mg PO TID [facility] Last Admin: 08/30/17 06:35 Dose: 50 mg Morphine Sulfate () 2 - 4 mg IV Q2H PRN PRN PRN Reason: Severe pain (6-10) Last Admin: 08/30/17 04:34 Dose: 2 mg Morphine Sulfate () 2 - 4 mg IV Q2H PRN PRN PRN Reason: Severe pain (6-10) Last Admin: 08/29/17 14:15 Dose: 4 mg Multivitamins/Minerals (Multivitamin With Minerals) [facility] Last Admin: 08/30/17 08:51 Dose: 1 tablet Nutritional Formula (Lactose Free) (Ensure Enlive) 120 ml PO TID [facility] Last Admin: 08/30/17 06:31 Dose: 120 ml Ondansetron HCl (Zofran) 4 mg IV Q6H PRN PRN PRN Reason: nausea, emesis Last Admin: 08/30/17 04:44 Dose: 4 mg Oxycodone HCl (Oxyir) 5 - 10 mg PO Q4H PRN PRN PRN Reason: PAIN Last Admin: 08/30/17 08:49 Dose: 10 mg Promethazine HCl (Phenergan) 6.25 mg IV Q4H PRN PRN PRN Reason: NAUSEA/VOMITING Last Admin: 08/29/17 22:56 Dose: 6.25 mg Rivaroxaban (Xarelto) 20 mg PO DAILY [facility] Last Admin: 08/29/17 08:55 Dose: 20 mg Sodium Chloride () 5 - 30 ml IV UD PRN PRN Reason: SALINE FLUSH Last Admin: 08/29/17 10:19 Dose: 10 ml Trazodone HCl (Desyrel) 50 mg PO QHS [facility] Last Admin: 08/29/17 21:08 Dose: 50 mg Medical Necessity - Tobacco Use Smoking Status: Current some day smoker Tobacco Use: Cigarettes Assessment/Plan All Active Problems (Last Reviewed 04/17/17 @ 14:47 by Red Millan MD) Shortness of breath (Acute) Fracture of fifth toe, left, closed (Acute) Abdominal pain (Acute) Chronic hypoxemic respiratory failure (Acute) Vertebral compression fracture (Acute) Hyponatremia (Resolved) Viral syndrome (Resolved) Cellulitis of foot (Ruled-out) The patient is a 67 y/o F w/ PMHx: Chronic COPD w/ Chronic Hypoxic Respiratory Failure (3L NC), HTN, HLD, ? Diabetes mellitus type II w/ Peripheral Neuropathy , Hx DVT on Xarelto recently started, Hx Ischemic CVA, Seizure disorder, Tobacco use who presents to the [facility] on 08/28/17 for planned L AKA secondary to severe PVD and non-healing ulcers. (1) Severe PAD/PVD w/ Chronic Non-healing Ulcers, Neuropathy: s/p L AKA as noted , maintained on xarelto, asa/plavix (given xarelto concurrent use, consideration of ASA d/c), statin, BB, following w/ Dr. Burgos. Maintain on home neurontin regimen. PT, OT, CM per primary service discretion. Pain regimen , bowel regimen per primary service discretion. 08/29/17 altered anti-emetic regimen with improvement, onset nausea again this AM following dressing change but expect improvement w/ pain regimen. Monitor oral intake. Planned TCU transition per Orthopedic surgery once authorization obtained. (2) Chronic COPD: Will maintain on home oxygen supplementation, continue ATC duonebs, PRN albuterol, HOB, IS parameters. (3) Diabetes mellitus type II: Not on regimen, recent HgbA1c 4.9% therefore defer accu checks w/ ISS. (4) Hypertension: Continue home regimen including metoprolol,, PRN hydralazine. (5) Hyperlipidemia: Continue home statin regimen. (6) Seizure disorder: Off keppra x 1 year, remains seizure free, encourage Neurology follow-up. (7) Tobacco Abuse: Encouraged cessation, inpatient consultation per RT, NR if desired. (8) Recent DVT: Continued on xarelto. (9) History of CVA: Maintain on asa/plavix, statin, BP regimen. (10) Moderate Appearing Calorie-Protein Malnutrition: Notably co-morbidities, muscle and fat loss apparent, nutrition consulted, supplements. (11) DVT Prophylaxis: SCD to alternate extremity, Juice. Code Visit Inpatient E&M: 63104 Subs Hosp L2
--- NOTE | 2017-08-30 11:37 | NURSING ---
to patient's room at primary RN's request to look at stump dressing as has come off. incision intact without significant redness or edema. small amt old dry drainage noted. ABD x2, kerlex, and alex wraps replaced. pt up to bsc. discussed pain medication w/ patient as states requiring morphine in between oral medication. discussed with patient goal to wean from morphine.
--- NOTE | 2017-08-30 11:49 | CASEMGMT ---
Addendum entered by Kayleigh Webb 08/30/17 12:02: SW updated pt that pre-cert has been obtained and she is able to discharge tomorrow to TCU. Pt states understanding and thanked this SW. Pt denied additional needs or concerns at this time. Original Note: Social Work Note SW received message from Chyna in TCU stating that pre-cert has been obtained and pt is able to discharge tomorrow to TCU. Green Sheet on chart. Plan: Discharge to TCU tomorrow Kayleigh Webb TEST ANALYST, ASSOCIATE PROFESSOR OF [employer]AL JUSTICE
--- NOTE | 2017-08-30 11:52 | NURSING ---
iv lt fa removed. attempted restart x2 without success. discussed w/ primary RN. pt agreeable to have this nurse discuss pain medication w/ physican.
[2017-08-30] MEDS: Rivaroxaban 20 MG Tablet PO (12:14)
[2017-08-30] MEDS: Linacolotide 145 MCG CAPSULE PO (12:14)
[2017-08-30] MEDS: Clopidogrel Bisulfate 75 MG Tablet PO (12:14)
[2017-08-30] MEDS: Ketorolac 15 MG/ML Vial IV ×2 (12:17→20:48)
[2017-08-30] MEDS: 0.9% NaCl Peripheral Flush Adult/Peds IV ×2 (14:17→20:48)
[2017-08-30] MEDS: Atorvastatin Calcium 20 MG Tablet PO (21:12)
[2017-08-30] MEDS: Polyethylene Glycol 3350 17 GM PACKET PO (21:12)
[2017-08-30] MEDS: traZODone 50 MG Tablet PO (21:13)
[2017-08-30] MEDS: Famotidine 20 MG Tablet PO (21:14)
[2017-08-31 04:00] VITALS: BP 139/64; PULSE 75; RESP 18; TEMP 36.8; O2SAT 100
[2017-08-31] MEDS: 0.9% NaCl Peripheral Flush Adult/Peds IV ×3 (04:09→10:42)
[2017-08-31] MEDS: Ketorolac 15 MG/ML Vial IV (04:10)
[2017-08-31] MEDS: Acetaminophen 500 MG Tablet 1000 MG PO ×2 (06:21→13:47)
[2017-08-31 06:22] VITALS: BP 154/74; PULSE 83
[2017-08-31] MEDS: Metoprolol Tartrate 50 MG Tablet PO ×2 (06:22→13:49)
[2017-08-31] MEDS: oxyCODONE 5 MG Tablet PO ×3 (06:32→14:50)
[2017-08-31 06:37] VITALS: PULSE 77; RESP 18; O2SAT 99
[2017-08-31] MEDS: Budesonide Respules 0.5 MG/2 ML AMPUL.NEB. INHALATION (06:37)
[2017-08-31] MEDS: Ipratropium/Albuterol Sulfate 3 ML AMPUL.NEB INHALATION ×2 (06:37→13:39)
--- NOTE | 2017-08-31 08:51 | PN_ITS ---
Subjective: Patient was seen and examined. Being discharged today. Denies any complaints. Pain is fairly controlled. Going to TCU. Vitals/I&O's: Vital Signs Temp Pulse Resp BP Pulse Ox 98.3 F 77 18 154/74 H 99 08/31/17 04:00 08/31/17 06:37 08/31/17 06:37 08/31/17 06:22 08/31/17 06:37 Oxygen Flow Rate (L/min) 3 Oxygen Delivery Method Nasal Cannula Weight: 48.534 kg Body Mass Index (BMI) 23.1 Finger Stick Blood Glucose 89 Intake and Output for Last 24 Hours 08/29/17 08/30/17 08/31/17 23:59 23:59 23:59 Intake Total 3883 / 3883 3788 / 3788 611 / 611 Output Total 1854 / 1854 3200 / 3200 Balance 2028 / 2028 588 / 588 611 / 611 General: Alert, Oriented x3, Cooperative, - - On 3 L of oxygen HEENT: Atraumatic, PERRLA, EOMI, Normocephalic Oral: Moist Mucosa Neck: Supple Lungs: Clear to auscultation, Normal air movement Cardiovascular: Regular rate, Regular Rhythm, Normal S1, Normal S2, No murmurs Abdomen: Bowel Sounds Present, Soft, Non Tender, Non-Distended, No Hepato- splenomegaly Extremities: - - Left AKA Skin: No rashes Musculoskeletal: No Tenderness to Palpation of Joints or Extremities Lymphatic: No Cervical, Supraclavicular, or Inguinal Adenopathy Neurological: Cranial nerves II-XII grossly intact, Neuro grossly intact Psych/Mental Status: Normal Affect, Appropriate Current Medications Acetaminophen (Tylenol) 1,000 mg PO Q8 [facility] Last Admin: 08/31/17 06:21 Dose: 1,000 mg Albuterol Sulfate (Ventolin Aerosols) 2.5 mg INHALATION Q4H PRN PRN PRN Reason: SOB &/OR WHEEZING Last Admin: 08/30/17 03:26 Dose: 2.5 mg Albuterol/Ipratropium (Duoneb) 3 ml INHALATION Q6HWA.RT [facility] Last Admin: 08/31/17 06:37 Dose: 3 ml Atorvastatin Calcium (Lipitor) 20 mg PO QHS [facility] Last Admin: 07/20/18 21:12 Dose: 20 mg Budesonide (Pulmicort Aerosol) 0.5 mg INHALATION Q12H.RT [facility] Last Admin: 08/31/17 06:37 Dose: 0.5 mg Clopidogrel Bisulfate (Plavix) 75 mg PO DAILY [facility] Last Admin: 08/30/17 12:14 Dose: 75 mg Famotidine (Pepcid) 20 mg PO BID [facility] Last Admin: 08/30/17 21:14 Dose: 20 mg Gabapentin (Neurontin) 600 mg PO TIDCM [facility] Last Admin: 08/30/17 16:59 Dose: 600 mg Hydralazine HCl (Apresoline) 25 mg PO Q8 PRN PRN Reason: SBP >160 Last Admin: 08/30/17 06:42 Dose: 25 mg Linaclotide (Linzess) 145 mcg PO DAILY [facility] Last Admin: 08/30/17 12:14 Dose: 145 mcg Metoprolol Tartrate (Lopressor (Beta Yany)) 50 mg PO TID [facility] Last Admin: 08/31/17 06:22 Dose: 50 mg Morphine Sulfate () 2 - 4 mg IV Q2H PRN PRN PRN Reason: Severe pain (6-10) Last Admin: 08/30/17 04:34 Dose: 2 mg Morphine Sulfate () 2 - 4 mg IV Q2H PRN PRN PRN Reason: Severe pain (6-10) Last Admin: 08/29/17 14:15 Dose: 4 mg Multivitamins/Minerals ([facility]) [facility] Admin: 08/30/17 08:51 Dose: 1 tablet Nutritional Formula (Lactose Free) (Ensure Enlive) 120 ml PO TID [facility] Last Admin: 08/31/17 06:20 Dose: Not Given Ondansetron HCl (Zofran) 4 mg IV Q6H PRN PRN PRN Reason: nausea, emesis Last Admin: 08/30/17 04:44 Dose: 4 mg Oxycodone HCl (Oxyir) 5 - 10 mg PO Q4H PRN PRN PRN Reason: PAIN Last Admin: 08/31/17 06:32 Dose: 10 mg Polyethylene Glycol (Miralax) 17 gm PO DAILY [facility] Last Admin: 08/30/17 21:12 Dose: 17 gm Promethazine HCl (Phenergan) 6.25 mg IV Q4H PRN PRN PRN Reason: NAUSEA/VOMITING Last Admin: 08/29/17 22:56 Dose: 6.25 mg Rivaroxaban (Xarelto) 20 mg PO DAILY [facility] Last Admin: 08/30/17 12:14 Dose: 20 mg Sodium Chloride () 5 - 30 ml IV UD PRN PRN Reason: SALINE FLUSH Last Admin: 08/31/17 04:09 Dose: 10 ml Trazodone HCl (Desyrel) 50 mg PO QHS [facility] Last Admin: 08/30/17 21:13 Dose: 50 mg Medical Necessity - Tobacco Use Smoking Status: Current some day smoker Tobacco Use: Cigarettes Assessment/Plan All Active Problems (Last Reviewed 04/17/17 @ 14:47 by Red Millan MD) Shortness of breath (Acute) Fracture of fifth toe, left, closed (Acute) Abdominal pain (Acute) Chronic hypoxemic respiratory failure (Acute) Vertebral compression fracture (Acute) Hyponatremia (Resolved) Viral syndrome (Resolved) Cellulitis of foot (Ruled-out) 1. Postop day #3 ,status post left AKA for severe PAD with chronic nonhealing ulcers, neuropathy, pain is fairly controlled on his current medication 2. Chronic COPD with chronic respiratory failure, on 3 L home oxygen, no signs of exacerbation 3. Type II DM, diet controlled, last HbA1c is 4.9 4. Hypertension, controlled, continue home regimen 5. Hyperlipidemia, on statin 6. Seizure disorder, off Keppra for more than 1 year, seizure-free, neurology follow-up encouraged 7. Nicotine dependence, advised to quit 8. Recent DVT, on Xarelto 9. History of CVA, on aspirin, Plavix, statin 10. Moderate protein energy malnutrition, on supplements 11. DVT prophylaxis - Xarelto 12. Disposition: Okay for DC to halfway facility Called by nursing to assist with paperwork for discharge to halfway facility -transferred to ECF form filled, according to instructions on home discharge instructions form filled by orthopedics. Signed Medication list also done. Code Visit Inpatient E&M: 89858 Subs Hosp L2
--- NOTE | 2017-08-31 08:56 | PCM.PN.BLA ---
Progress Note Subjective: Patient is doing well today. Medically stable. Pain is controlled on current regimen. No acute events overnight. Accepted at the TCU and pre-certed through insurance. Objective: Afebrile vital signs stable still requiring 3 L oxygen which is her home dose. Left lower extremity: Incision is clean dry and intact compressive wrap replaced today. Patient tolerates transfers well in the room she transferred to bed for dressing change and then back to chair. Assessment: Postop day 3 left above-knee amputation for chronic ulcers and peripheral vascular disease left lower extremity 1. Pain control: Continue current regimen 2. Therapy: Occupational and physical therapy for ADLs and continue strengthening 3. Medical management: Appreciate medical management in this patient patient currently medically stable 4. Dressing care: Change dressing every other day. Okay to leave open to air if incision is dry after 1 week. Disposition: Discharge to TCU today. [facility] Office:
--- NOTE | 2017-08-31 08:59 | PN_ITS ---
Progress Note Subjective: Patient is doing well today. Medically stable. Pain is controlled on current regimen. No acute events overnight. Accepted at the TCU and pre- certed through insurance. Objective: Afebrile vital signs stable still requiring 3 L oxygen which is her home dose. Left lower extremity: Incision is clean dry and intact compressive wrap replaced today. Patient tolerates transfers well in the room she transferred to bed for dressing change and then back to chair. Assessment: Postop day 3 left above-knee amputation for chronic ulcers and peripheral vascular disease left lower extremity 1. Pain control: Continue current regimen 2. Therapy: Occupational and physical therapy for ADLs and continue strengthening 3. Medical management: Appreciate medical management in this patient patient currently medically stable 4. Dressing care: Change dressing every other day. Okay to leave open to air if incision is dry after 1 week. Disposition: Discharge to TCU today. [facility] Office:
--- NOTE | 2017-08-31 08:59 | PCM.DC.ORTHO ---
Discharge Diet: No Restrictions Discharge Activity: May Not Drive May shower in (days): 1 - keep inc c/d/i Ice area for (Minutes): 20 - Ice area for 20 minutes each hour while awake Weight Bearing Status: No weight bearing - LLE Keep extremity elevated above heart level: Operative Extremity Call your doctor if your incision/area has: Continuous Slow Oozing, Sudden Increased Bleeding, Increased Pain/ Swelling, Increased Redness, Foul Smelling Discharge Call your doctor if you observe: Fever of 101 or Higher, Coldness, Increased Pain, Numbness or Tingling, Change in Color Change Dressing in (Days):: 2 Remove Dressing in (days):: 5 - If incision is clean dry and intact Cleanse incision/area with: Keep Dressing Clean & Dry Additional Dressing/Incision Instructions:: Compressive dressing changes every other day last dressing change 08/31/2017 Allergies/Adverse Reactions: Allergies levofloxacin [From Levaquin] Allergy (Verified 08/21/17 15:01) Other Red streak up her arm and itiching pregabalin [From Lyrica] Allergy (Verified 08/28/17 09:34) Other Sulfa (Sulfonamide Antibiotics) Allergy (Verified 08/21/17 15:01) Anaphylaxis duloxetine [From Cymbalta] Adverse Reaction (Verified 08/21/17 15:01) Vomiting sertraline HCl [From Zoloft] Adverse Reaction (Verified 08/21/17 15:01) MAKES ME CRAZY makes me crazy Medications to take at Discharge Acetaminophen [Tylenol Extra Strength] 500 mg PO Q6H PRN PRN 04/04/17 Linacolotide [Linzess] 145 mcg PO DAILY 04/04/17 Metoprolol Tartrate [Lopressor (Beta Yany)] 50 mg PO TID 04/04/17 Promethazine HCl 25 mg PO Q8H PRN PRN 04/04/17 traZODone [Desyrel] 50 mg PO QHS 04/04/17 Albuterol Aerosols [Ventolin Aerosols] 2.5 mg INHALATION Q4H PRN PRN 04/05/17 Albuterol IH (ProAir) [Proair Hfa (SP)Vent Pts] 2 puff INHALATION Q6H PRN PRN 04/05/17 Gabapentin [Neurontin] 600 mg PO TIDCM 04/05/17 Ipratropium/Albuterol Sulfate [Duoneb] 3 ml INHALATION Q6HWA.RT 04/05/17 Sodium Chloride 1 gm PO DAILY 04/05/17 Clopidogrel Bisulfate [Plavix] 75 mg PO DAILY 07/13/17 Rivaroxaban [Xarelto] 20 mg PO DAILY 07/13/17 Atorvastatin Calcium [Lipitor] 20 mg PO QDAY 08/21/17 Budesonide Aerosol [Pulmicort Aerosol] 0.5 mg INHALATION BID 08/21/17 Ferrous Gluconate 324 mg PO DAILY 08/29/17 Pantoprazole Sodium 40 mg PO DAILY 08/29/17 Primary Care Physician: Irasema Jonas MD [Primary Care Provider] - Test Results: Test results from this visit will be discussed in further detail at your follow-up appointment, if applicable. Proposed Discharge Date: 08/31/17
[2017-08-31] MEDS: Famotidine 20 MG Tablet PO (09:59)
[2017-08-31] MEDS: Polyethylene Glycol 3350 17 GM PACKET PO (09:59)
[2017-08-31] MEDS: Linacolotide 145 MCG CAPSULE PO (09:59)
[2017-08-31] MEDS: Multivitamins,Ther W-Minerals Tablet 1 TABLET PO (09:59)
[2017-08-31 10:00] VITALS: BP 150/73; PULSE 74; RESP 18; TEMP 36.8; O2SAT 100
[2017-08-31] MEDS: Clopidogrel Bisulfate 75 MG Tablet PO (10:00)
[2017-08-31] MEDS: Rivaroxaban 20 MG Tablet PO (10:00)
[2017-08-31] MEDS: Gabapentin 600 MG Tablet PO ×2 (10:00→13:47)
[2017-08-31] MEDS: proMETHazine 25 MG/ML Syringe 6.25 MG IV (10:42)
--- NOTE | 2017-08-31 11:49 | PCM.TXEXTCAR ---
- Diet 08/28/17 16:29 Diet: Regular Diet Type of Dietary Supplement:: Ensure Complete Is pt able to select menu?: Yes - Routine Orders/Code Status O2 Liters per Minute: 3L O2 Frequency: Continuous Keep PO Greater than or Equal to (%): 94 Routine Lab Work: CBC - in 3 days, BMP - in 3 days - Wound(s) LEFT LEG Wound Type: Surgical Incision Dressing Change: Dry Sterile Dressing - Therapies Weight Bearing: Non weight bearing Extremity Affected:: Left Lower Physical Therapy: Eval and Treat Occupational Therapy: Eval and Treat - Allergies/Procedures Done in Hospital Allergies/Adverse Reactions: Allergies levofloxacin [From Levaquin] Allergy (Verified 08/21/17 15:01) Other Red streak up her arm and itiching pregabalin [From Lyrica] Allergy (Verified 08/28/17 09:34) Other Sulfa (Sulfonamide Antibiotics) Allergy (Verified 08/21/17 15:01) Anaphylaxis duloxetine [From Cymbalta] Adverse Reaction (Verified 08/21/17 15:01) Vomiting sertraline HCl [From Zoloft] Adverse Reaction (Verified 08/21/17 15:01) MAKES ME CRAZY makes me crazy Procedures: - - s/p L AKA - Type of Care/Length of Stay Estimated LOS: Convalescent Care Less Than 30 days Type of Care Needed: Skilled Rehab Potential: Fair Prognosis: Good - Additional Orders/Day of Discharge Additional Orders: May shower in 1 day per orthopedics. Keep dressing c/d/i. Ice LLE stump 20 minutes for each hour awake. Keep operative limb elevated above the heart. Change dressing in 2 days. Remove dressing in 5 days if incision is clean, dry and intact. Compression dressing every other day; last dressing change 08/31/17 Day of Discharge: 08/31/17 - Dietary and Speech Recommendations Dietitian Recommendations/Changes: Continue on regular diet. Would benefit from a cardiac, low-sodium diet once PO improves. Recommend 1 packet [place] BID to promote wound healing, especially with hx of poor wound healing. Request new weight- S/P amputation. - Follow Up Care Primary Care Physician: Irasema Jonas MD [Primary Care Provider] - Please follow up with your Primary Care Physician in: within 1-2 weeks after discharge from [facility] Please Follow Up With: Gopal Hernandez MD When: Within 2 weeks
[2017-08-31 13:05] LABS: Absolute Lymphocyte Count 0.97 X10^3/ul (0.83-4.51); Absolute Neutrophil Count 3.5 X10^3/uL (2.0-7.7); Basophil# 0.01 X10^3/uL; Basophil% 0.2 % (0-1); Eosinophils% 3.7 % (0-5); Hematocrit 32.7 % (37-47); Hemoglobin 10.1 g/dl (12.0-15.0); Lymphocyte # 0.97 X10^3/ul (4.0); Lymphocyte % 18.1 % (19-41); Mean Corp Hgb Conc 30.9 g/gl (32-36); Mean Corpuscular Hgb 28.5 pg (27.0-32.0); Mean Corpuscular Volume 92.1 fL (81-99); Mean Platelet Vol. 9.1 fl (6.2-12.0); Monocyte# 0.72 X10^3/uL; Monocyte% 13.5 % (0-10); Neutrophil # 3.45 X10^3/uL (2.7-7.7); Neutrophil % 64.5 % (47-70); POSITIVE COUNT NO; POSITIVE DIFFERENTIAL NO; POSITIVE MORPHOLOGY NO; Platelet Count 169 K/mm3 (150-450); RBC Distribution Width CV 14.9 % (11.6-14.6); RBC Distribution Width SD 50.5 fl (35.1-43.9); Red Blood Count 3.55 M/mm3 (4.2-5.4); White Blood Count 5.4 K/mm3 (4.4-11.0)
[2017-08-31 13:30] LABS: Anion Gap 4 (5-15); BUN 15 mg/dL (7-18); BUN/Creat Ratio 23.8 RATIO (10-20); Calcium,Total 8.8 mg/dL (8.5-10.1); Chloride 99 mmol/L (98-107); Creatinine, Serum 0.63 mg/dL (0.55-1.02); EST Glomerular Filtration Rate 101 mL/min (>60); Est Glom Filt Rate - Afr Amer 122 mL/min (>60); Estimated Creatinine Clearance 68.21 ml/min; Glucose 77 mg/dL (74-106); Potassium 5.3 mmol/L (3.5-5.1); Sodium Level 127 mmol/L (136-145)
[2017-08-31 13:40] VITALS: PULSE 95; RESP 20
[2017-08-31 13:49] VITALS: PULSE 90
== END 2017-08-31 16:10 | disposition skilled nursing facility (03) | DRG 617 ==
LOC: ACINP 09:12 → MS3 12:03
PROVIDERS: Admitting Provider Specialist; Family Provider Internal Medicine; PCP Internal Medicine; Visit Provider Internal Medicine
PROC: 0Y6D0Z3 Detachment at Left Upper Leg, Low, Open Approach (ICD-10-PCS; principal; 2017-08-28 11:15)
DX: E11.621 Type 2 diabetes mellitus with foot ulcer (principal); E44.0 Moderate protein-calorie malnutrition; J96.11 Chronic respiratory failure with hypoxia; E11.51 Type 2 diabetes mellitus with diabetic peripheral angiopathy without gangrene; L97.524 Non-pressure chronic ulcer of other part of left foot with necrosis of bone; M19.90 Unspecified osteoarthritis, unspecified site; I10 Essential (primary) hypertension; I25.10 Atherosclerotic heart disease of native coronary artery without angina pectoris; J44.9 Chronic obstructive pulmonary disease, unspecified; K58.9 Irritable bowel syndrome, unspecified; Z86.73 Personal history of transient ischemic attack (TIA), and cerebral infarction without residual deficits; E11.42 Type 2 diabetes mellitus with diabetic polyneuropathy; G89.29 Other chronic pain; Z99.81 Dependence on supplemental oxygen; F17.210 Nicotine dependence, cigarettes, uncomplicated; Z86.718 Personal history of other venous thrombosis and embolism; E78.5 Hyperlipidemia, unspecified; Z68.23 Body mass index [BMI] 23.0-23.9, adult; G54.6 Phantom limb syndrome with pain; K21.9 Gastro-esophageal reflux disease without esophagitis
CPT/HCPCS: 36415; 71046; 80048; 80076; 82962; 83036; 85025; 85610; 85730; 88307; 88311; 88312; 94640; 97110; 97116; 97162; 97165; 97530; 97802; 99406; J7120; A4216; J2405

== ENCOUNTER 2017-08-31 16:25 | Inpatient (IN) | payer MEDICARE, SELFPAY ==
[2017-08-31 16:49] VITALS: BP 135/73; PULSE 83; RESP 20; TEMP 36.9; O2SAT 92
--- NOTE | 2017-08-31 16:49 | NURSING ---
Pt admitted at 16:25 via wheelchair from [facility]
--- NOTE | 2017-08-31 17:36 | PCM.HP.STD ---
Problem List (1) Foot ulcer, left Status: Chronic (2) Diabetes mellitus Status: Chronic (3) Tobacco abuse Status: Chronic (4) Neuropathic pain Status: Chronic (5) Seizure disorder Status: Chronic (6) Insomnia Status: Chronic (7) Hyperlipidemia Status: Chronic (8) Peripheral arterial occlusive disease Status: Chronic (9) Osteoporosis Status: Chronic (10) Hypertension Status: Chronic Qualifiers: (11) COPD (chronic obstructive pulmonary disease) Status: Chronic Qualifiers: History of Present Illness Date of Admission: 08/31/17 Chief Complaint: Here for rehabilitation, strengthening, prior to discharge home with family. The patient is a 67 year old Female with below past medical history presented to [facility] Emergency Department 07/13/2017 with left toe pain. Left foot ulcer x 10 months. Excruciating pain. Failed leg leg bypasses. Needs left leg amputation. 08/21/2017 Chest X-ray showed COPD, no acute changes. 08/28/2017 Dr. Hernandez performed left above knee amputation. 08/29/2017 Tylenol, OxyIR for pain. Compressive dressing to left AKA stump. 08/30/2017 Xarelto for DVT. Nausea controlled with anti-emetic. 08/31/2017 Admit to TCU with rehabilitation, strengthening, prior to discharge home with family. Past Medical History Past Medical History (Chronic Problems): Chronic Problems (Last Reviewed 04/17/17 @ 14:47 by Red Millan MD) Foot ulcer, left (Chronic) Diabetes mellitus (Chronic) Tobacco abuse (Chronic) Neuropathic pain (Chronic) Seizure disorder (Chronic) Atherosclerosis of [place] artery of left lower extremity (Chronic) Chronic ulcer of left foot with fat layer exposed (Chronic) Insomnia (Chronic) Neuropathic pain (Chronic) Hyperlipidemia (Chronic) Peripheral arterial occlusive disease (Chronic) Type 2 diabetes mellitus with diabetic polyneuropathy (Chronic) Hammer toe of left foot (Chronic) Other specified peripheral vascular diseases (Chronic) Chronic anticoagulation (Chronic) Osteoporosis (Chronic) Acute on chronic congestive heart failure (Chronic) Cerebrovascular disease (Chronic) Status post acute ischemic stroke no residual deficit Moderate carotid disease Bilateral carotid endarterectomy Hypertension (Chronic) COPD (chronic obstructive pulmonary disease) (Chronic) Tobacco user (Chronic) Medical History: Medical History (Last Reviewed 04/17/17 @ 14:47 by Red Millan MD) Atherosclerosis of [place] artery of left lower extremity (Chronic) I70.202 Neuropathic pain (Chronic) M79.2 Hyperlipidemia (Chronic) E78.5 Peripheral arterial occlusive disease (Chronic) I77.9 Type 2 diabetes mellitus with diabetic polyneuropathy (Chronic) E11.42 Osteoporosis (Chronic) M81.0 Acute on chronic congestive heart failure (Chronic) I50.9 Cerebrovascular disease (Chronic) I67.9 Status post acute ischemic stroke no residual deficit Moderate carotid disease Bilateral carotid endarterectomy Hypertension (Chronic) I10 COPD (chronic obstructive pulmonary disease) (Chronic) J44.9 Tobacco user (Chronic) Z72.0 abdominal aorta endovascular stent graft Allergies levofloxacin [From Levaquin] Allergy (Verified 08/21/17 15:01) Other Red streak up her arm and itiching pregabalin [From Lyrica] Allergy (Verified 08/28/17 09:34) Other Sulfa (Sulfonamide Antibiotics) Allergy (Verified 08/21/17 15:01) Anaphylaxis duloxetine [From Cymbalta] Adverse Reaction (Verified 08/21/17 15:01) Vomiting sertraline HCl [From Zoloft] Adverse Reaction (Verified 08/21/17 15:01) MAKES ME CRAZY makes me crazy Home Medications: Ambulatory Orders Medication Instructions Recorded Linacolotide [Linzess] 145 mcg PO DAILY 04/04/17 Metoprolol Tartrate [Lopressor 50 mg PO TID 04/04/17 (beta lorie)] traZODone [Desyrel] 50 mg PO QHS 04/04/17 Albuterol Aerosols [Ventolin 2.5 mg INHALATION Q4H PRN PRN 04/05/17 Aerosols] Albuterol IH (ProAir) [Proair Hfa] 2 puff INHALATION Q6H PRN PRN 04/05/17 Gabapentin [Neurontin] 600 mg PO TIDCM 04/05/17 Ipratropium/Albuterol Sulfate 3 ml INHALATION Q6HWA.RT 04/05/17 [Duoneb] Sodium Chloride 1 gm PO DAILY 04/05/17 Clopidogrel Bisulfate [Plavix] 75 mg PO DAILY 07/13/17 Rivaroxaban [Xarelto] 20 mg PO DAILY 07/13/17 Atorvastatin Calcium [Lipitor] 20 mg PO QDAY 08/21/17 Budesonide Aerosol [Pulmicort 0.5 mg INHALATION BID 08/21/17 Respules] Ferrous Gluconate 324 mg PO DAILY 08/29/17 Pantoprazole Sodium 40 mg PO DAILY 08/29/17 Acetaminophen [Tylenol] 1,000 mg PO Q8 08/31/17 Ensure Enlive 120 ml PO TID 08/31/17 Famotidine [Pepcid] 20 mg PO BID 08/31/17 Multivitamins,Ther W-Minerals 1 tablet PO DAILYCM 08/31/17 [Multivitamin With Minerals] Oxycodone [Oxyir] 5 - 10 mg PO Q4H PRN PRN 7 Days 08/31/17 #60 tab Polyethylene Glycol 3350 [Miralax] 17 gm PO DAILY 08/31/17 hydrALAZINE [Apresoline] 25 mg PO Q8 PRN tablet 08/31/17 Surgical History: Surgical History (Last Reviewed 04/17/17 @ 14:47 by Red Millan MD) History of appendectomy Z98.890, Z90.49 History of bilateral carotid endarterectomy Z98.890 History of hysterectomy Z98.890, Z90.710 bilateral femoral endarterectomy bilateral iliac stenting Surgical History: appendectomy, hysterectomy, - - Bilateral carotid endarterectomy,pad surgery with stents. 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 [employer] History: No pertinent [employer]ATOR [employer] history Lives: With Family Smoking Status: Current some day smoker Tobacco Use: Cigarettes Alcohol: None Drugs: None - *Family History Paternal Family History: Family History (Last Reviewed 04/17/17 @ 14:47 by Red Millan MD) Mother CVA (cerebral vascular accident) History Items: Heart Disease Maternal Family History: Family History (Last Reviewed 04/17/17 @ 14:47 by Red Millan MD) Mother CVA (cerebral vascular accident) History Items: No pertinent history Review of Systems Constitutional: Denies: Chills, Fever, Weight Change HEENT: Denies: Head Aches, Sinus Congestion, Sinus Drainage Cardiovascular: Denies: Chest Pain, Palpitations Respiratory: Denies: Cough, Shortness of breath at rest, Sputum production Gastrointestinal: Denies: Abdominal Pain, Nausea, Vomiting Genitourinary: Denies: Dysuria Musculoskeletal: Denies: Joint Pain, Joint Tenderness Skin: Denies: Rash, Wounds Neurological: Denies: Numbness, Tingling, Focal weakness Psychiatric: Denies: Anxiety, Depression, Homicidal Ideations, Suicidal Ideations Hematologic/ Lymphatic: Denies: Easy Bruising, Easy Bleeding VTE Information - Inpt Only VTE Present on Admission: No VTE Mechan Device Prophylaxis: Knee High JER Hose VTE Pharm Prophylaxis ordered?: No Reason prophylaxis not ordered:: Treatment Not Indicated - Physical Exam General: Alert, Oriented x3, Cooperative HEENT: Atraumatic, PERRLA, EOMI, Normocephalic Neck: Supple, No JVD, Negative Carotid Bruits Lungs: Clear to auscultation, Normal air movement Cardiovascular: Regular rate, No murmurs Abdomen: Bowel Sounds Present, Soft, Non Tender Extremities: No edema, Capillary Refill Less than 3 Seconds, - - Left Above Knee Amputation. Skin: No rashes, No breakdown Musculoskeletal: No Tenderness to Palpation of Joints or Extremities Neurological: Cranial nerves II-XII grossly intact Psych/Mental Status: Normal Affect, Appropriate Finger Stick Blood Glucose 89 Assessment/Plan All Active Problems (Last Reviewed 04/17/17 @ 14:47 by Red Millan MD) Shortness of breath (Acute) Fracture of fifth toe, left, closed (Acute) Abdominal pain (Acute) Chronic hypoxemic respiratory failure (Acute) Vertebral compression fracture (Acute) Hyponatremia (Resolved) Viral syndrome (Resolved) Cellulitis of foot (Ruled-out) 67 year old female with below past medical history hospitalized for left above knee amputation 08/28/[address] Hernandez, admitted to TCU with debility, here or rehabilitation, strengthening, prior to discharge home with family. Debility - PT/OT. Pain - Tylenol 1000MG Q8H, Oxycodone 5-10MG Q4H PRN moderate to severe pain. Bowel - Miralax 17GM daily, Linzess 145MCG daily. Pneumonia vaccination - Administer Prevnar 13 and/or Pneumovax 23 as necessary. DVT prophylaxis - Not necessary, already on Xarelto. COPD - Pulmicort 0.5MG BID, Duoneb 3ML Q6H, Albuterol 2.5MG Q4H PRN, Albuterol 2 puffs Q6H PRN. Hyperlipidemia - Atorvastatin 20MG QHS. PAOD - Plavix 75MG daily. Nutrition - MVI daily, [place] 1 packet BID, Ensure Enlive 120ML TID. GERD - Pantoprazole 40MG daily, Famotidine 20MG BID. Iron deficiency anemia - Ferrous Gluconate 324MG daily. Neuropathic pain - Gabapentin 600MG TID. Hypertension - Metoprolol 50MG TID, Hydralazine 25MG Q8H PRN SBP > 160. DVT - Xarelto 20MG daily. Hyponatremia - Sodium Chloride 1GM daily. Insomnia - Trazodone 50MG QHS.
--- NOTE | 2017-08-31 17:51 | HP.PCM_ITS ---
Problem List (1) Foot ulcer, left Status: Chronic (2) Diabetes mellitus Status: Chronic (3) Tobacco abuse Status: Chronic (4) Neuropathic pain Status: Chronic (5) Seizure disorder Status: Chronic (6) Insomnia Status: Chronic (7) Hyperlipidemia Status: Chronic (8) Peripheral arterial occlusive disease Status: Chronic (9) Osteoporosis Status: Chronic (10) Hypertension Status: Chronic Qualifiers: (11) COPD (chronic obstructive pulmonary disease) Status: Chronic Qualifiers: History of Present Illness Date of Admission: 08/31/17 Chief Complaint: Here for rehabilitation, strengthening, prior to discharge home with family. The patient is a 67 year old Female with below past medical history presented to [facility] Emergency Department 07/13/2017 with left toe pain. Left foot ulcer x 10 months. Excruciating pain. Failed leg leg bypasses. Needs left leg amputation. 08/21/2017 Chest X-ray showed COPD, no acute changes. 08/28/2017 Dr. Hernandez performed left above knee amputation. 08/29/2017 Tylenol, OxyIR for pain. Compressive dressing to left AKA stump. 08/30/2017 Xarelto for DVT. Nausea controlled with anti-emetic. 08/31/2017 Admit to TCU with rehabilitation, strengthening, prior to discharge home with family. Past Medical History Past Medical History (Chronic Problems): Chronic Problems (Last Reviewed 04/17/17 @ 14:47 by Red Millan MD) Foot ulcer, left (Chronic) Diabetes mellitus (Chronic) Tobacco abuse (Chronic) Neuropathic pain (Chronic) Seizure disorder (Chronic) Atherosclerosis of [place] artery of left lower extremity (Chronic) Chronic ulcer of left foot with fat layer exposed (Chronic) Insomnia (Chronic) Neuropathic pain (Chronic) Hyperlipidemia (Chronic) Peripheral arterial occlusive disease (Chronic) Type 2 diabetes mellitus with diabetic polyneuropathy (Chronic) Hammer toe of left foot (Chronic) Other specified peripheral vascular diseases (Chronic) Chronic anticoagulation (Chronic) Osteoporosis (Chronic) Acute on chronic congestive heart failure (Chronic) Cerebrovascular disease (Chronic) Status post acute ischemic stroke no residual deficit Moderate carotid disease Bilateral carotid endarterectomy Hypertension (Chronic) COPD (chronic obstructive pulmonary disease) (Chronic) Tobacco user (Chronic) Medical History: Medical History (Last Reviewed 04/17/17 @ 14:47 by Red Millan MD) Atherosclerosis of [place] artery of left lower extremity (Chronic) I70.202 Neuropathic pain (Chronic) M79.2 Hyperlipidemia (Chronic) E78.5 Peripheral arterial occlusive disease (Chronic) I77.9 Type 2 diabetes mellitus with diabetic polyneuropathy (Chronic) E11.42 Osteoporosis (Chronic) M81.0 Acute on chronic congestive heart failure (Chronic) I50.9 Cerebrovascular disease (Chronic) I67.9 Status post acute ischemic stroke no residual deficit Moderate carotid disease Bilateral carotid endarterectomy Hypertension (Chronic) I10 COPD (chronic obstructive pulmonary disease) (Chronic) J44.9 Tobacco user (Chronic) Z72.0 abdominal aorta endovascular stent graft Allergies levofloxacin [From Levaquin] Allergy (Verified 08/21/17 15:01) Other Red streak up her arm and itiching pregabalin [From Lyrica] Allergy (Verified 08/28/17 09:34) Other Sulfa (Sulfonamide Antibiotics) Allergy (Verified 08/21/17 15:01) Anaphylaxis duloxetine [From Cymbalta] Adverse Reaction (Verified 08/21/17 15:01) Vomiting sertraline HCl [From Zoloft] Adverse Reaction (Verified 08/21/17 15:01) MAKES ME CRAZY makes me crazy Home Medications: Ambulatory Orders Medication Instructions Recorded Linacolotide [Linzess] 145 mcg PO DAILY 04/04/17 Metoprolol Tartrate [Lopressor 50 mg PO TID 04/04/17 (beta lorie)] traZODone [Desyrel] 50 mg PO QHS 04/04/17 Albuterol Aerosols [Ventolin 2.5 mg INHALATION Q4H PRN PRN 04/05/17 Aerosols] Albuterol IH (ProAir) [Proair Hfa] 2 puff INHALATION Q6H PRN PRN 04/05/17 Gabapentin [Neurontin] 600 mg PO TIDCM 04/05/17 Ipratropium/Albuterol Sulfate 3 ml INHALATION Q6HWA.RT 04/05/17 [Duoneb] Sodium Chloride 1 gm PO DAILY 04/05/17 Clopidogrel Bisulfate [Plavix] 75 mg PO DAILY 07/13/17 Rivaroxaban [Xarelto] 20 mg PO DAILY 07/13/17 Atorvastatin Calcium [Lipitor] 20 mg PO QDAY 08/21/17 Budesonide Aerosol [Pulmicort 0.5 mg INHALATION BID 08/21/17 Respules] Ferrous Gluconate 324 mg PO DAILY 08/29/17 Pantoprazole Sodium 40 mg PO DAILY 08/29/17 Acetaminophen [Tylenol] 1,000 mg PO Q8 08/31/17 Ensure Enlive 120 ml PO TID 08/31/17 Famotidine [Pepcid] 20 mg PO BID 08/31/17 Multivitamins,Ther W-Minerals 1 tablet PO DAILYCM 08/31/17 [Multivitamin With Minerals] Oxycodone [Oxyir] 5 - 10 mg PO Q4H PRN PRN 7 Days 08/31/17 #60 tab Polyethylene Glycol 3350 [Miralax] 17 gm PO DAILY 08/31/17 hydrALAZINE [Apresoline] 25 mg PO Q8 PRN tablet 08/31/17 Surgical History: Surgical History (Last Reviewed 04/17/17 @ 14:47 by Red Millan MD) History of appendectomy Z98.890, Z90.49 History of bilateral carotid endarterectomy Z98.890 History of hysterectomy Z98.890, Z90.710 bilateral femoral endarterectomy bilateral iliac stenting Surgical History: appendectomy, hysterectomy, - - Bilateral carotid endarterectomy,pad surgery with stents. 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 Lives: With Family Smoking Status: Current some day smoker Tobacco Use: Cigarettes Alcohol: None Drugs: None - *Family History Paternal Family History: Family History (Last Reviewed 04/17/17 @ 14:47 by Red Millan MD) Mother CVA (cerebral vascular accident) History Items: Heart Disease Maternal Family History: Family History (Last Reviewed 04/17/17 @ 14:47 by Red Millan MD) Mother CVA (cerebral vascular accident) History Items: No pertinent history Review of Systems Constitutional: Denies: Chills, Fever, Weight Change HEENT: Denies: Head Aches, Sinus Congestion, Sinus Drainage Cardiovascular: Denies: Chest Pain, Palpitations Respiratory: Denies: Cough, Shortness of breath at rest, Sputum production Gastrointestinal: Denies: Abdominal Pain, Nausea, Vomiting Genitourinary: Denies: Dysuria Musculoskeletal: Denies: Joint Pain, Joint Tenderness Skin: Denies: Rash, Wounds Neurological: Denies: Numbness, Tingling, Focal weakness Psychiatric: Denies: Anxiety, Depression, Homicidal Ideations, Suicidal Ideations Hematologic/ Lymphatic: Denies: Easy Bruising, Easy Bleeding VTE Information - Inpt Only VTE Present on Admission: No VTE Mechan Device Prophylaxis: Knee High JER Hose VTE Pharm Prophylaxis ordered?: No Reason prophylaxis not ordered:: Treatment Not Indicated - Physical Exam General: Alert, Oriented x3, Cooperative HEENT: Atraumatic, PERRLA, EOMI, Normocephalic Neck: Supple, No JVD, Negative Carotid Bruits Lungs: Clear to auscultation, Normal air movement Cardiovascular: Regular rate, No murmurs Abdomen: Bowel Sounds Present, Soft, Non Tender Extremities: No edema, Capillary Refill Less than 3 Seconds, - - Left Above Knee Amputation. Skin: No rashes, No breakdown Musculoskeletal: No Tenderness to Palpation of Joints or Extremities Neurological: Cranial nerves II-XII grossly intact Psych/Mental Status: Normal Affect, Appropriate Finger Stick Blood Glucose 89 Assessment/Plan All Active Problems (Last Reviewed 04/17/17 @ 14:47 by Red Millan MD) Shortness of breath (Acute) Fracture of fifth toe, left, closed (Acute) Abdominal pain (Acute) Chronic hypoxemic respiratory failure (Acute) Vertebral compression fracture (Acute) Hyponatremia (Resolved) Viral syndrome (Resolved) Cellulitis of foot (Ruled-out) 67 year old female with below past medical history hospitalized for left above knee amputation 08/28/[address] Hernandez, admitted to TCU with debility, here or rehabilitation, strengthening, prior to discharge home with family. * Debility - PT/OT. * Pain - Tylenol 1000MG Q8H, Oxycodone 5-10MG Q4H PRN moderate to severe pain. * Bowel - Miralax 17GM daily, Linzess 145MCG daily. * Pneumonia vaccination - Administer Prevnar 13 and/or Pneumovax 23 as necessary. * DVT prophylaxis - Not necessary, already on Xarelto. * COPD - Pulmicort 0.5MG BID, Duoneb 3ML Q6H, Albuterol 2.5MG Q4H PRN, Albuterol 2 puffs Q6H PRN. * Hyperlipidemia - Atorvastatin 20MG QHS. * PAOD - Plavix 75MG daily. * Nutrition - MVI daily, [place] 1 packet BID, Ensure Enlive 120ML TID. * GERD - Pantoprazole 40MG daily, Famotidine 20MG BID. * Iron deficiency anemia - Ferrous Gluconate 324MG daily. * Neuropathic pain - Gabapentin 600MG TID. * Hypertension - Metoprolol 50MG TID, Hydralazine 25MG Q8H PRN SBP > 160. * DVT - Xarelto 20MG daily. * Hyponatremia - Sodium Chloride 1GM daily. * Insomnia - Trazodone 50MG QHS.
[2017-08-31] MEDS: Famotidine 20 MG Tablet PO (18:10)
[2017-08-31] MEDS: Gabapentin 600 MG Tablet PO (18:10)
[2017-08-31] MEDS: oxyCODONE 5 MG Tablet PO (19:03)
[2017-08-31 19:12] VITALS: PULSE 88; RESP 16; O2SAT 96
[2017-08-31] MEDS: Budesonide Respules 0.5 MG/2 ML AMPUL.NEB. INHALATION (19:12)
[2017-08-31] MEDS: Ipratropium/Albuterol Sulfate 3 ML AMPUL.NEB INHALATION (19:12)
--- NOTE | 2017-08-31 20:27 | NURSING ---
Dr. Huber notified of patient c/o increased pain in left leg and previous oxyir being not effective. N.O. given
[2017-08-31] MEDS: oxyCODONE 5 MG Tablet 20 MG PO (21:57)
[2017-08-31] MEDS: Acetaminophen 500 MG Tablet 1000 MG PO (21:58)
[2017-08-31] MEDS: traZODone 50 MG Tablet PO (21:58)
[2017-08-31 21:59] VITALS: BP 135/59; PULSE 93
[2017-08-31] MEDS: Metoprolol Tartrate 50 MG Tablet PO (21:59)
[2017-08-31 22:51] VITALS: BMI 22.6
[2017-09-01] VITALS (7 sets, daily range): BP systolic 131–152; BP diastolic 65–75; PULSE 71–90; RESP 16–18; TEMP 36.5; O2SAT 94–98; BMI 22.7
[2017-09-01] MEDS: oxyCODONE 5 MG Tablet PO ×3 (03:33→11:45)
--- NOTE | 2017-09-01 03:40 | NURSING ---
Dr. Huber notified of patient having nausea. New orders given.
[2017-09-01] MEDS: Ondansetron ODT 4 MG Tablet PO ×2 (04:10→11:45)
--- NOTE | 2017-09-01 04:12 | NURSING ---
Discussed code status with patient, patient wishes to be a full code.
[2017-09-01 06:25] LABS: Absolute Lymphocyte Count 0.91 X10^3/ul (0.83-4.51); Absolute Neutrophil Count 3.8 X10^3/uL (2.0-7.7); Basophil# 0.01 X10^3/uL; Basophil% 0.2 % (0-1); Eosinophil# 0.27 X10^3/uL; Eosinophils% 4.7 % (0-5); Hematocrit 31.3 % (37-47); Hemoglobin 9.6 g/dl (12.0-15.0); Lymphocyte # 0.91 X10^3/ul (4.0); Lymphocyte % 15.9 % (19-41); Mean Corp Hgb Conc 30.7 g/gl (32-36); Mean Corpuscular Hgb 28.5 pg (27.0-32.0); Mean Corpuscular Volume 92.9 fL (81-99); Mean Platelet Vol. 8.8 fl (6.2-12.0); Monocyte# 0.77 X10^3/uL; Monocyte% 13.5 % (0-10); Neutrophil # 3.75 X10^3/uL (2.7-7.7); Neutrophil % 65.7 % (47-70); Platelet Count 206 K/mm3 (150-450); Red Blood Count 3.37 M/mm3 (4.2-5.4); White Blood Count 5.7 K/mm3 (4.4-11.0)
[2017-09-01 06:28] LABS: POSITIVE COUNT NO; POSITIVE DIFFERENTIAL NO; POSITIVE MORPHOLOGY NO
[2017-09-01] MEDS: Clopidogrel Bisulfate 75 MG Tablet PO (06:33)
[2017-09-01] MEDS: Famotidine 20 MG Tablet PO ×2 (06:33→17:44)
[2017-09-01] MEDS: Rivaroxaban 20 MG Tablet PO (06:33)
[2017-09-01] MEDS: Pantoprazole Sodium 40 MG Tablet PO (06:33)
[2017-09-01] MEDS: Atorvastatin Calcium 20 MG Tablet PO (06:34)
[2017-09-01] MEDS: Metoprolol Tartrate 50 MG Tablet PO ×3 (06:34→21:11)
[2017-09-01] MEDS: LINACLOTIDE 145 MCG CAPSULE PO (06:34)
[2017-09-01] MEDS: Acetaminophen 500 MG Tablet 1000 MG PO ×3 (06:35→21:10)
[2017-09-01 06:43] LABS: Anion Gap 8 (5-15); BUN 11 mg/dL (7-18); BUN/Creat Ratio 20.3 RATIO (10-20); Calcium,Total 9.3 mg/dL (8.5-10.1); Chloride 91 mmol/L (98-107); Creatinine, Serum 0.54 mg/dL (0.55-1.02); EST Glomerular Filtration Rate 120 mL/min (>60); Est Glom Filt Rate - Afr Amer 145 mL/min (>60); Estimated Creatinine Clearance 78.14 ml/min; Glucose 95 mg/dL (74-106); Potassium 4.8 mmol/L (3.5-5.1); Sodium Level 132 mmol/L (136-145)
[2017-09-01] MEDS: Ipratropium/Albuterol Sulfate 3 ML AMPUL.NEB INHALATION ×3 (07:20→19:10)
[2017-09-01] MEDS: Budesonide Respules 0.5 MG/2 ML AMPUL.NEB. INHALATION ×2 (07:20→19:10)
[2017-09-01] MEDS: Multivitamins,Ther W-Minerals Tablet 1 TABLET PO (07:48)
[2017-09-01] MEDS: Ferrous Gluconate 325 MG Tablet 324 MG PO (07:48)
[2017-09-01] MEDS: Gabapentin 600 MG Tablet PO ×3 (07:48→17:45)
[2017-09-01] MEDS: SODIUM CHLORIDE 1 GM TABLET PO (07:49)
[2017-09-01] MEDS: Tuberculin,Purif.prot.deriv. 50 TU/ML Vial 5 ML ID (11:48)
[2017-09-01] MEDS: oxyCODONE 5 MG Tablet 20 MG PO (15:43)
--- NOTE | 2017-09-01 16:16 | NURSING ---
Dr. Huber reviewed AM meds, N.N.O.
[2017-09-01] MEDS: traZODone 50 MG Tablet PO (21:10)
[2017-09-02] VITALS (10 sets, daily range): BP systolic 98–146; BP diastolic 56–70; PULSE 75–89; RESP 16–20; TEMP 36.8; O2SAT 98–100
[2017-09-02] MEDS: oxyCODONE 5 MG Tablet 20 MG PO ×6 (00:56→22:20)
[2017-09-02] MEDS: Ondansetron ODT 4 MG Tablet PO ×2 (00:56→13:34)
[2017-09-02] MEDS: Ipratropium/Albuterol Sulfate 3 ML AMPUL.NEB INHALATION ×4 (01:14→19:40)
[2017-09-02] MEDS: LINACLOTIDE 145 MCG CAPSULE PO (05:01)
[2017-09-02] MEDS: Pantoprazole Sodium 40 MG Tablet PO (05:01)
[2017-09-02] MEDS: Metoprolol Tartrate 50 MG Tablet PO ×3 (05:01→20:42)
[2017-09-02] MEDS: Clopidogrel Bisulfate 75 MG Tablet PO (05:02)
[2017-09-02] MEDS: Acetaminophen 500 MG Tablet 1000 MG PO ×3 (05:02→20:42)
[2017-09-02] MEDS: Famotidine 20 MG Tablet PO ×2 (05:03→16:54)
[2017-09-02] MEDS: Rivaroxaban 20 MG Tablet PO (05:03)
[2017-09-02] MEDS: Atorvastatin Calcium 20 MG Tablet PO (05:03)
[2017-09-02] MEDS: Budesonide Respules 0.5 MG/2 ML AMPUL.NEB. INHALATION ×2 (07:40→19:40)
[2017-09-02] MEDS: Multivitamins,Ther W-Minerals Tablet 1 TABLET PO (09:34)
[2017-09-02] MEDS: Ferrous Gluconate 325 MG Tablet 324 MG PO (09:34)
[2017-09-02] MEDS: Gabapentin 600 MG Tablet PO ×3 (09:34→16:54)
[2017-09-02] MEDS: SODIUM CHLORIDE 1 GM TABLET PO (15:11)
[2017-09-02] MEDS: traZODone 50 MG Tablet PO (20:42)
[2017-09-03] MEDS: oxyCODONE 5 MG Tablet 20 MG PO ×5 (02:22→21:33)
[2017-09-03] MEDS: Rivaroxaban 20 MG Tablet PO (06:34)
[2017-09-03] MEDS: Clopidogrel Bisulfate 75 MG Tablet PO (06:34)
[2017-09-03] MEDS: Atorvastatin Calcium 20 MG Tablet PO (06:34)
[2017-09-03] MEDS: Acetaminophen 500 MG Tablet 1000 MG PO ×3 (06:34→21:34)
[2017-09-03 06:35] VITALS: BP 160/79; PULSE 76
[2017-09-03] MEDS: Metoprolol Tartrate 50 MG Tablet PO ×3 (06:35→21:34)
[2017-09-03] MEDS: LINACLOTIDE 145 MCG CAPSULE PO (06:35)
[2017-09-03] MEDS: Famotidine 20 MG Tablet PO ×2 (06:35→17:05)
[2017-09-03] MEDS: Pantoprazole Sodium 40 MG Tablet PO (06:35)
[2017-09-03] MEDS: Gabapentin 600 MG Tablet PO ×3 (06:40→17:05)
[2017-09-03 07:25] VITALS: PULSE 74; RESP 16; O2SAT 100
[2017-09-03] MEDS: Ipratropium/Albuterol Sulfate 3 ML AMPUL.NEB INHALATION ×2 (07:25→13:01)
[2017-09-03] MEDS: Budesonide Respules 0.5 MG/2 ML AMPUL.NEB. INHALATION (07:25)
[2017-09-03] MEDS: Multivitamins,Ther W-Minerals Tablet 1 TABLET PO (08:43)
[2017-09-03] MEDS: SODIUM CHLORIDE 1 GM TABLET PO (08:45)
[2017-09-03] MEDS: Ferrous Gluconate 325 MG Tablet 324 MG PO (08:45)
[2017-09-03] MEDS: Ondansetron ODT 4 MG Tablet PO (10:50)
--- NOTE | 2017-09-03 12:16 | PCM.PN.RX ---
<Bert Casey D - Last Filed: 09/03/17 12:16> Progress Note - Pharmacy Subjective: TCU Admission Objective: Allergies levofloxacin [From Levaquin] Allergy (Verified 08/21/17 15:01) Other Red streak up her arm and itiching pregabalin [From Lyrica] Allergy (Verified 08/28/17 09:34) Other Sulfa (Sulfonamide Antibiotics) Allergy (Verified 08/21/17 15:01) Anaphylaxis duloxetine [From Cymbalta] Adverse Reaction (Verified 08/21/17 15:01) Vomiting sertraline HCl [From Zoloft] Adverse Reaction (Verified 08/21/17 15:01) MAKES ME CRAZY makes me crazy Current Medications Generic Name Dose Route Start Last Admin Trade Name Freq PRN Reason Stop Dose Admin Acetaminophen 1,000 mg 08/31/17 22:00 09/03/17 06:34 Tylenol PO 1,000 mg Q8 WISAM Administration Albuterol Sulfate 2.5 mg 08/31/17 16:56 Ventolin Aerosols INHALATION Q4H PRN PRN SOB &/OR WHEEZING Albuterol Sulfate 2 puff 08/31/17 16:56 Ventolin Hfa (Sp) INHALATION Q6H PRN PRN SOB &/OR WHEEZING Albuterol/Ipratropium 3 ml 08/31/17 17:00 09/03/17 07:25 Duoneb INHALATION 3 ml Q6HWA.RT WISAM Administration Atorvastatin Calcium 20 mg 09/01/17 06:00 09/03/17 06:34 Lipitor PO 20 mg DAILY WISAM Administration Budesonide 0.5 mg 08/31/17 18:00 09/03/17 07:25 Pulmicort Aerosol INHALATION 0.5 mg BID.RT WISAM Administration Clopidogrel Bisulfate 75 mg 09/01/17 06:00 09/03/17 06:34 Plavix PO 75 mg DAILY WISAM Administration Docusate Sodium 200 mg 09/03/17 08:08 Colace PO BID PRN PRN Constipation Famotidine 20 mg 08/31/17 18:00 09/03/17 06:35 Pepcid PO 20 mg BID WISAM Administration Ferrous Gluconate 324 mg 09/01/17 08:00 09/03/17 08:45 Ferrous Gluconate PO 324 mg DAILYCM [facility]ISAM Administration Gabapentin 600 mg 08/31/17 17:45 09/03/17 06:40 Neurontin PO 600 mg TIDCM [facility]ISAM Administration Hydralazine HCl 25 mg 08/31/17 16:56 Apresoline PO Q8H PRN SBP >160 Linaclotide 145 mcg 09/01/17 06:00 09/03/17 06:35 Linzess PO 145 mcg DAILY WISAM Administration Metoprolol Tartrate 50 mg 08/31/17 22:00 09/03/17 06:35 Lopressor (Beta Yany) PO 50 mg TID WISAM Administration Multivitamins/Minerals 1 tablet 09/01/17 08:00 09/03/17 08:43 Multivitamin With Minerals PO 1 tablet DAILYCM [facility] Administration Nutritional Formula 1 packet 09/01/17 08:00 09/03/17 08:43 [place] Flavor PO 1 packet BIDCM [facility] Administration Nutritional Formula (Lactose Free) 120 ml 08/31/17 22:00 09/03/17 06:32 Ensure Enlive PO Not Given TID [facility] Ondansetron HCl 4 mg 09/01/17 03:39 09/03/17 10:50 Zofran Odt PO 4 mg Q6H PRN PRN Administration NAUSEA Oxycodone HCl 20 mg 09/01/17 14:37 09/03/17 10:49 Oxyir PO 20 mg Q4H PRN PRN Administration PAIN Pantoprazole Sodium 40 mg 09/01/17 06:00 09/03/17 06:35 Protonix PO 40 mg DAILY [facility] Administration Polyethylene Glycol 17 gm 09/01/17 06:00 09/03/17 06:37 Miralax PO Not Given DAILY [facility] Rivaroxaban 20 mg 09/01/17 06:00 09/03/17 06:34 Xarelto PO 20 mg DAILY [facility] Administration Sodium Chloride 1 gm 09/01/17 08:00 09/03/17 08:45 Sodium Chloride PO 1 gm DAILYCM [facility] Administration Trazodone HCl 50 mg 08/31/17 22:00 09/02/17 20:42 Desyrel PO 50 mg QHS WISAM Administration Tuberculin PPD 5 tu 09/08/17 10:00 Tubersol, Aplisol, Ppd ID 09/08/17 10:01 X1 ONE Problem List (Last Reviewed 04/17/17 @ 14:47 by Red Millan MD) Foot ulcer, left (Chronic) Diabetes mellitus (Chronic) Tobacco abuse (Chronic) Neuropathic pain (Chronic) Seizure disorder (Chronic) Vital Signs Temp Pulse Resp BP Pulse Ox 98.3 F 74 16 160/79 H 100 09/02/17 15:59 09/03/17 07:25 09/03/17 07:25 09/03/17 06:35 09/03/17 07:25 Oxygen Flow Rate (L/min) 3 Oxygen Delivery Method Nasal Cannula Weight: 47.372 kg Body Mass Index (BMI) 22.6 Finger Stick Blood Glucose 89 Sodium 132 mmol/L (136-145) L 09/01/17 06:16 Potassium 4.8 mmol/L (3.5-5.1) 09/01/17 06:16 Chloride 91 mmol/L (98-107) L 09/01/17 06:16 Carbon Dioxide 33.0 mmol/L (21.0-32.0) H 09/01/17 06:16 Anion Gap 8 (5-15) 09/01/17 06:16 BUN 11 mg/dL (7-18) 09/01/17 06:16 Creatinine 0.54 mg/dL (0.55-1.02) L 09/01/17 06:16 Est GFR (MDRD) Af Amer 145 mL/min (>60) 09/01/17 06:16 Est GFR (MDRD) Non-Af 120 mL/min (>60) 09/01/17 06:16 BUN/Creatinine Ratio 20.3 RATIO (10-20) H 09/01/17 06:16 Glucose 95 mg/dL (74-106) 09/01/17 06:16 Assessment/Plan: 1) Pain APAP, gabapentin, oxycodone prn. Continue to monitor daily pain scores, prn medication use. 2) Pulm Duoneb and budesonide aerosols scheduled, albuterol prn. Continue to monitor prn medication use, for shortness of breath. 3) PAOD/DVT/HTN/HLD Atorvastatin, clopidogrel, prn hydralazine, metoprolol, rivaroxaban. Continue to monitor BP/HR, renal function, lipids, hepatic enzymes. 4) Hyponatremia NaCl daily. Continue to monitor electrolytes. * 5) GI Famotidine, pantoprazole, ondansetron prn. 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 Please d/c one. 6) Nutrition Ensure, Fe, multivitamin, [place]. Continue to monitor clinically. Psychotropic Medications: 7) Insomnia Trazodone at HS. Continue to monitor for insomnia. Unnecessary Medications: None Bowel Regimen: 8) PEG, linaclotide, prn docusate. Continue to monitor prn medication use, for s/s constipation/diarrhea. Date of Note:: 09/03/17 - Provider Comments Provider responsibility: Provider responsible to enter orders to implement recommendations <Mark Huber Chi - Last Filed: 09/03/17 17:36> Progress Note - Pharmacy Subjective: [] Objective: Allergies levofloxacin [From Levaquin] Allergy (Verified 08/21/17 15:01) Other Red streak up her arm and itiching pregabalin [From Lyrica] Allergy (Verified 08/28/17 09:34) Other Sulfa (Sulfonamide Antibiotics) Allergy (Verified 08/21/17 15:01) Anaphylaxis duloxetine [From Cymbalta] Adverse Reaction (Verified 08/21/17 15:01) Vomiting sertraline HCl [From Zoloft] Adverse Reaction (Verified 08/21/17 15:01) MAKES ME CRAZY makes me crazy Current Medications Generic Name Dose Route Start Last Admin Trade Name Freq PRN Reason Stop Dose Admin Acetaminophen 1,000 mg 08/31/17 22:00 09/03/17 14:21 Tylenol PO 1,000 mg Q8 WISAM Administration Albuterol Sulfate 2.5 mg 08/31/17 16:56 Ventolin Aerosols INHALATION Q4H PRN PRN SOB &/OR WHEEZING Albuterol Sulfate 2 puff 08/31/17 16:56 Ventolin Hfa (Sp) INHALATION Q6H PRN PRN SOB &/OR WHEEZING Albuterol/Ipratropium 3 ml 08/31/17 17:00 09/03/17 13:01 Duoneb INHALATION 3 ml Q6HWA.RT WISAM Administration Atorvastatin Calcium 20 mg 09/01/17 06:00 09/03/17 06:34 Lipitor PO 20 mg DAILY [facility]ISAM Administration Budesonide 0.5 mg 08/31/17 18:00 09/03/17 07:25 Pulmicort Aerosol INHALATION 0.5 mg BID.RT [facility] Administration Clopidogrel Bisulfate 75 mg 09/01/17 06:00 09/03/17 06:34 Plavix PO 75 mg DAILY [facility] Administration Docusate Sodium 200 mg 09/03/17 08:08 Colace PO BID PRN PRN Constipation Famotidine 20 mg 08/31/17 18:00 09/03/17 17:05 Pepcid PO 20 mg BID [facility] Administration Ferrous Gluconate 324 mg 09/01/17 08:00 09/03/17 08:45 [facility] Administration Gabapentin 600 mg 08/31/17 17:45 09/03/17 17:05 Neurontin PO 600 mg TIDCM [facility] Administration Hydralazine HCl 25 mg 08/31/17 16:56 Apresoline PO Q8H PRN SBP >160 Linaclotide 145 mcg 09/01/17 06:00 09/03/17 06:35 Linzess PO 145 mcg DAILY [facility] Administration Magnesium Hydroxide 30 ml 09/03/17 14:29 09/03/17 15:09 Milk Of Magnesia PO 30 ml DAILY PRN Administration Constipation Metoprolol Tartrate 50 mg 08/31/17 22:00 09/03/17 14:21 Lopressor (Beta Yany) PO 50 mg TID [facility] Administration Multivitamins/Minerals 1 tablet 09/01/17 08:00 09/03/17 08:43 Multivitamin With Minerals [facility] Administration Nutritional Formula 1 packet 09/01/17 08:00 09/03/17 17:05 [place] Flavor PO Not [facility] Nutritional Formula (Lactose Free) 120 ml 08/31/17 22:00 09/03/17 14:22 Ensure Enlive PO Not Given TID [facility] Ondansetron HCl 4 mg 09/01/17 03:39 09/03/17 10:50 Zofran Odt PO 4 mg Q6H PRN PRN Administration NAUSEA Oxycodone HCl 20 mg 09/01/17 14:37 09/03/17 15:07 Oxyir PO 20 mg Q4H PRN PRN Administration PAIN Pantoprazole Sodium 40 mg 09/01/17 06:00 09/03/17 06:35 Protonix PO 40 mg DAILY [facility] Administration Polyethylene Glycol 17 gm 09/01/17 06:00 09/03/17 06:37 Miralax PO Not Given DAILY [facility] Promethazine HCl 25 mg 09/03/17 14:29 09/03/17 15:07 Phenergan Tablet PO 25 mg Q6H PRN PRN Administration NAUSEA/VOMITING Rivaroxaban 20 mg 09/01/17 06:00 09/03/17 06:34 Xarelto PO 20 mg DAILY [facility] Administration Sodium Chloride 1 gm 09/01/17 08:00 09/03/17 08:45 Sodium Chloride PO 1 gm DAILYCM [facility] Administration Trazodone HCl 50 mg 08/31/17 22:00 09/02/17 20:42 Desyrel PO 50 mg QHS [facility] Administration Tuberculin PPD 5 tu 09/08/17 10:00 Tubersol, Aplisol, Ppd ID 09/08/17 10:01 X1 ONE Problem List (Last Reviewed 04/17/17 @ 14:47 by Red Millan MD) Foot ulcer, left (Chronic) Diabetes mellitus (Chronic) Tobacco abuse (Chronic) Neuropathic pain (Chronic) Seizure disorder (Chronic) Vital Signs Temp Pulse Resp BP Pulse Ox 97.4 F L 77 18 133/64 H 99 09/03/17 15:33 09/03/17 15:33 09/03/17 15:33 09/03/17 15:33 09/03/17 15:33 Oxygen Flow Rate (L/min) 3 Oxygen Delivery Method Nasal Cannula Weight: 47.372 kg Body Mass Index (BMI) 22.6 Finger Stick Blood Glucose 89 Sodium 132 mmol/L (136-145) L 09/01/17 06:16 Potassium 4.8 mmol/L (3.5-5.1) 09/01/17 06:16 Chloride 91 mmol/L (98-107) L 09/01/17 06:16 Carbon Dioxide 33.0 mmol/L (21.0-32.0) H 09/01/17 06:16 Anion Gap 8 (5-15) 09/01/17 06:16 BUN 11 mg/dL (7-18) 09/01/17 06:16 Creatinine 0.54 mg/dL (0.55-1.02) L 09/01/17 06:16 Est GFR (MDRD) Af Amer 145 mL/min (>60) 09/01/17 06:16 Est GFR (MDRD) Non-Af 120 mL/min (>60) 09/01/17 06:16 BUN/Creatinine Ratio 20.3 RATIO (10-20) H 09/01/17 06:16 Glucose 95 mg/dL (74-106) 09/01/17 06:16 Assessment/Plan: Psychotropic Medications: Unnecessary Medications: Bowel Regimen: - Provider Comments Provider responsibility: Provider responsible to enter orders to implement recommendations Provider Comments to Recommendations by Pharmacy: Agree
--- NOTE | 2017-09-03 12:44 | PHA.CONS_ITS ---
<Bert Casey D - Last Filed: 09/03/17 12:16> Progress Note - Pharmacy Subjective: TCU Admission Objective: Allergies levofloxacin [From Levaquin] Allergy (Verified 08/21/17 15:01) Other Red streak up her arm and itiching pregabalin [From Lyrica] Allergy (Verified 08/28/17 09:34) Other Sulfa (Sulfonamide Antibiotics) Allergy (Verified 08/21/17 15:01) Anaphylaxis duloxetine [From Cymbalta] Adverse Reaction (Verified 08/21/17 15:01) Vomiting sertraline HCl [From Zoloft] Adverse Reaction (Verified 08/21/17 15:01) MAKES ME CRAZY makes me crazy Current Medications Generic Name Dose Route Start Last Admin Trade Name Freq PRN Reason Stop Dose Admin Acetaminophen 1,000 mg 08/31/17 22:00 09/03/17 06:34 Tylenol PO 1,000 mg Q8 WISAM Administration Albuterol Sulfate 2.5 mg 08/31/17 16:56 Ventolin Aerosols INHALATION Q4H PRN PRN SOB &/OR WHEEZING Albuterol Sulfate 2 puff 08/31/17 16:56 Ventolin Hfa (Sp) INHALATION Q6H PRN PRN SOB &/OR WHEEZING Albuterol/Ipratropium 3 ml 08/31/17 17:00 09/03/17 07:25 Duoneb INHALATION 3 ml Q6HWA.RT WISAM Administration Atorvastatin Calcium 20 mg 09/01/17 06:00 09/03/17 06:34 Lipitor PO 20 mg DAILY WISAM Administration Budesonide 0.5 mg 08/31/17 18:00 09/03/17 07:25 Pulmicort Aerosol INHALATION 0.5 mg BID.RT WISAM Administration Clopidogrel Bisulfate 75 mg 09/01/17 06:00 09/03/17 06:34 Plavix PO 75 mg DAILY WISAM Administration Docusate Sodium 200 mg 09/03/17 08:08 Colace PO BID PRN PRN Constipation Famotidine 20 mg 08/31/17 18:00 09/03/17 06:35 Pepcid PO 20 mg BID WISAM Administration Ferrous Gluconate 324 mg 09/01/17 08:00 09/03/17 08:45 Ferrous Gluconate PO 324 mg DAILYCM WISAM Administration Gabapentin 600 mg 08/31/17 17:45 09/03/17 06:40 Neurontin PO 600 mg TIDCM WISAM Administration Hydralazine HCl 25 mg 08/31/17 16:56 Apresoline PO Q8H PRN SBP >160 Linaclotide 145 mcg 09/01/17 06:00 09/03/17 06:35 Linzess PO 145 mcg DAILY WISAM Administration Metoprolol Tartrate 50 mg 08/31/17 22:00 09/03/17 06:35 Lopressor (Beta Yany) PO 50 mg TID WISAM Administration Multivitamins/Minerals 1 tablet 09/01/17 08:00 09/03/17 08:43 Multivitamin With Minerals PO 1 tablet DAILYCM [facility] Administration Nutritional Formula 1 packet 09/01/17 08:00 09/03/17 08:43 [place] - Garrett Flavor PO 1 packet BIDCM [facility] Administration Nutritional Formula (Lactose Free) 120 ml 08/31/17 22:00 09/03/17 06:32 Ensure Enlive PO Not Given TID [facility] Ondansetron HCl 4 mg 09/01/17 03:39 09/03/17 10:50 Zofran Odt PO 4 mg Q6H PRN PRN Administration NAUSEA Oxycodone HCl 20 mg 09/01/17 14:37 09/03/17 10:49 Oxyir PO 20 mg Q4H PRN PRN Administration PAIN Pantoprazole Sodium 40 mg 09/01/17 06:00 09/03/17 06:35 Protonix PO 40 mg DAILY [facility] Administration Polyethylene Glycol 17 gm 09/01/17 06:00 09/03/17 06:37 Miralax PO Not Given DAILY [facility] Rivaroxaban 20 mg 09/01/17 06:00 09/03/17 06:34 Xarelto PO 20 mg DAILY [facility] Administration Sodium Chloride 1 gm 09/01/17 08:00 09/03/17 08:45 Sodium Chloride PO 1 gm DAILYCM [facility] Administration Trazodone HCl 50 mg 08/31/17 22:00 09/02/17 20:42 Desyrel PO 50 mg QHS WISAM Administration Tuberculin PPD 5 tu 09/08/17 10:00 Tubersol, Aplisol, Ppd ID 09/08/17 10:01 X1 ONE Problem List (Last Reviewed 04/17/17 @ 14:47 by Red Millan MD) Foot ulcer, left (Chronic) Diabetes mellitus (Chronic) Tobacco abuse (Chronic) Neuropathic pain (Chronic) Seizure disorder (Chronic) Vital Signs Temp Pulse Resp BP Pulse Ox 98.3 F 74 16 160/79 H 100 09/02/17 15:59 09/03/17 07:25 09/03/17 07:25 09/03/17 06:35 09/03/17 07:25 Oxygen Flow Rate (L/min) 3 Oxygen Delivery Method Nasal Cannula Weight: 47.372 kg Body Mass Index (BMI) 22.6 Finger Stick Blood Glucose 89 Sodium 132 mmol/L (136-145) L 09/01/17 06:16 Potassium 4.8 mmol/L (3.5-5.1) 09/01/17 06:16 Chloride 91 mmol/L (98-107) L 09/01/17 06:16 Carbon Dioxide 33.0 mmol/L (21.0-32.0) H 09/01/17 06:16 Anion Gap 8 (5-15) 09/01/17 06:16 BUN 11 mg/dL (7-18) 09/01/17 06:16 Creatinine 0.54 mg/dL (0.55-1.02) L 09/01/17 06:16 Est GFR (MDRD) Af Amer 145 mL/min (>60) 09/01/17 06:16 Est GFR (MDRD) Non-Af 120 mL/min (>60) 09/01/17 06:16 BUN/Creatinine Ratio 20.3 RATIO (10-20) H 09/01/17 06:16 Glucose 95 mg/dL (74-106) 09/01/17 06:16 Assessment/Plan: 1) Pain APAP, gabapentin, oxycodone prn. Continue to monitor daily pain scores, prn medication use. 2) Pulm Duoneb and budesonide aerosols scheduled, albuterol prn. Continue to monitor prn medication use, for shortness of breath. 3) PAOD/DVT/HTN/HLD Atorvastatin, clopidogrel, prn hydralazine, metoprolol, rivaroxaban. Continue to monitor BP/HR, renal function, lipids, hepatic enzymes. 4) Hyponatremia NaCl daily. Continue to monitor electrolytes. * 5) GI Famotidine, pantoprazole, ondansetron prn. Continue to monitor prn medication use, for s/s Gi distress * Duplicate acid business services analyst medications famotidine and pantoprazole. Please d/c one. 6) Nutrition Ensure, Fe, multivitamin, [place]. Continue to monitor clinically. Psychotropic Medications: 7) Insomnia Trazodone at HS. Continue to monitor for insomnia. Unnecessary Medications: None Bowel Regimen: 8) PEG, linaclotide, prn docusate. Continue to monitor prn medication use, for s /s constipation/diarrhea. Date of Note:: 09/03/17 - Provider Comments Provider responsibility: Provider responsible to enter orders to implement recommendations <Mark Huber Chi - Last Filed: 09/03/17 17:36> Progress Note - Pharmacy Subjective: [] Objective: Allergies levofloxacin [From Levaquin] Allergy (Verified 08/21/17 15:01) Other Red streak up her arm and itiching pregabalin [From Lyrica] Allergy (Verified 08/28/17 09:34) Other Sulfa (Sulfonamide Antibiotics) Allergy (Verified 08/21/17 15:01) Anaphylaxis duloxetine [From Cymbalta] Adverse Reaction (Verified 08/21/17 15:01) Vomiting sertraline HCl [From Zoloft] Adverse Reaction (Verified 08/21/17 15:01) MAKES ME CRAZY makes me crazy Current Medications Generic Name Dose Route Start Last Admin Trade Name Freq PRN Reason Stop Dose Admin Acetaminophen 1,000 mg 08/31/17 22:00 09/03/17 14:21 Tylenol PO 1,000 mg Q8 WISAM Administration Albuterol Sulfate 2.5 mg 08/31/17 16:56 Ventolin Aerosols INHALATION Q4H PRN PRN SOB &/OR WHEEZING Albuterol Sulfate 2 puff 08/31/17 16:56 Ventolin Hfa (Sp) INHALATION Q6H PRN PRN SOB &/OR WHEEZING Albuterol/Ipratropium 3 ml 08/31/17 17:00 09/03/17 13:01 Duoneb INHALATION 3 ml Q6HWA.RT WISAM Administration Atorvastatin Calcium 20 mg 09/01/17 06:00 09/03/17 06:34 Lipitor PO 20 mg DAILY WISAM Administration Budesonide 0.5 mg 08/31/17 18:00 09/03/17 07:25 Pulmicort Aerosol INHALATION 0.5 mg BID.RT [facility] Administration Clopidogrel Bisulfate 75 mg 09/01/17 06:00 09/03/17 06:34 Plavix PO 75 mg DAILY [facility] Administration Docusate Sodium 200 mg 09/03/17 08:08 Colace PO BID PRN PRN Constipation Famotidine 20 mg 08/31/17 18:00 09/03/17 17:05 Pepcid PO 20 mg BID [facility] Administration Ferrous Gluconate 324 mg 09/01/17 08:00 09/03/17 08:45 [facility] Administration Gabapentin 600 mg 08/31/17 17:45 09/03/17 17:05 Neurontin PO 600 mg TIDCM [facility] Administration Hydralazine HCl 25 mg 08/31/17 16:56 Apresoline PO Q8H PRN SBP >160 Linaclotide 145 mcg 09/01/17 06:00 09/03/17 06:35 Linzess PO 145 mcg DAILY [facility] Administration Magnesium Hydroxide 30 ml 09/03/17 14:29 09/03/17 15:09 Milk Of Magnesia PO 30 ml DAILY PRN Administration Constipation Metoprolol Tartrate 50 mg 08/31/17 22:00 09/03/17 14:21 Lopressor (Beta Yany) PO 50 mg TID [facility] Administration Multivitamins/Minerals 1 tablet 09/01/17 08:00 09/03/17 08:43 Multivitamin With Minerals [facility] Administration Nutritional Formula 1 packet 09/01/17 08:00 09/03/17 17:05 [place] - Garrett Flavor PO Not [facility] Nutritional Formula (Lactose Free) 120 ml 08/31/17 22:00 09/03/17 14:22 Ensure Enlive PO Not Given TID [facility] Ondansetron HCl 4 mg 09/01/17 03:39 09/03/17 10:50 Zofran Odt PO 4 mg Q6H PRN PRN Administration NAUSEA Oxycodone HCl 20 mg 09/01/17 14:37 09/03/17 15:07 Oxyir PO 20 mg Q4H PRN PRN Administration PAIN Pantoprazole Sodium 40 mg 09/01/17 06:00 09/03/17 06:35 Protonix PO 40 mg DAILY [facility] Administration Polyethylene Glycol 17 gm 09/01/17 06:00 09/03/17 06:37 Miralax PO Not Given DAILY WISAM Promethazine HCl 25 mg 09/03/17 14:29 09/03/17 15:07 Phenergan Tablet PO 25 mg Q6H PRN PRN Administration NAUSEA/VOMITING Rivaroxaban 20 mg 09/01/17 06:00 09/03/17 06:34 Xarelto PO 20 mg DAILY WISAM Administration Sodium Chloride 1 gm 09/01/17 08:00 09/03/17 08:45 Sodium Chloride PO 1 gm DAILYCM WISAM Administration Trazodone HCl 50 mg 08/31/17 22:00 09/02/17 20:42 Desyrel PO 50 mg QHS WISAM Administration Tuberculin PPD 5 tu 09/08/17 10:00 Tubersol, Aplisol, Ppd ID 09/08/17 10:01 X1 ONE Problem List (Last Reviewed 04/17/17 @ 14:47 by Red Millan MD) Foot ulcer, left (Chronic) Diabetes mellitus (Chronic) Tobacco abuse (Chronic) Neuropathic pain (Chronic) Seizure disorder (Chronic) Vital Signs Temp Pulse Resp BP Pulse Ox 97.4 F L 77 18 133/64 H 99 09/03/17 15:33 09/03/17 15:33 09/03/17 15:33 09/03/17 15:33 09/03/17 15:33 Oxygen Flow Rate (L/min) 3 Oxygen Delivery Method Nasal Cannula Weight: 47.372 kg Body Mass Index (BMI) 22.6 Finger Stick Blood Glucose 89 Sodium 132 mmol/L (136-145) L 09/01/17 06:16 Potassium 4.8 mmol/L (3.5-5.1) 09/01/17 06:16 Chloride 91 mmol/L (98-107) L 09/01/17 06:16 Carbon Dioxide 33.0 mmol/L (21.0-32.0) H 09/01/17 06:16 Anion Gap 8 (5-15) 09/01/17 06:16 BUN 11 mg/dL (7-18) 09/01/17 06:16 Creatinine 0.54 mg/dL (0.55-1.02) L 09/01/17 06:16 Est GFR (MDRD) Af Amer 145 mL/min (>60) 09/01/17 06:16 Est GFR (MDRD) Non-Af 120 mL/min (>60) 09/01/17 06:16 BUN/Creatinine Ratio 20.3 RATIO (10-20) H 09/01/17 06:16 Glucose 95 mg/dL (74-106) 09/01/17 06:16 Assessment/Plan: Psychotropic Medications: Unnecessary Medications: Bowel Regimen: - Provider Comments Provider responsibility: Provider responsible to enter orders to implement recommendations Provider Comments to Recommendations by Pharmacy: Agree
[2017-09-03 13:01] VITALS: PULSE 74; RESP 16
[2017-09-03 14:21] VITALS: BP 110/34; PULSE 79
--- NOTE | 2017-09-03 14:30 | NURSING ---
Pt has c/o nausea and constipation. Zofran ineffective. NO per Dr. Huber for phenergan 25mg PO v0tuamy PRN and milk of magnesia 30mL daily PRN.
--- NOTE | 2017-09-03 14:44 | CHAPLAIN ---
Type of Pastoral Visit _x__ Initial Visit ___ Follow-up Visit ___ On-call Visit ___ General Patient Visit ___ Spiritual Assessment ___ Family Conference ___ Bereavement ___ Rapid Response ___ Code Blue ___ Other (describe below) Pastoral Care Referral From _x__ Patient ___ Family ___ Nurse ___ Physician ___ Lithostripper ___ Oil And Gas Field Technician _x - Elevator Adjuster - Other (describe below) Sacrament/Intervention _x__ Active listening ___ Anointing ___ Taoism ___ Bereavement ___ Communion _x__ Jumana exploration ___ _x__ Life review _x__ Prayer ___ Reconciliation ___ Sacrament of Sick _x__ Supportive presence ___ Wedding ___ Other (describe below) Pastoral Comments 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
[2017-09-03] MEDS: proMETHazine 25 MG Tablet PO (15:07)
[2017-09-03] MEDS: Magnesium Hydroxide 30 ML UDC PO ×2 (15:08→15:09)
[2017-09-03 15:33] VITALS: BP 133/64; PULSE 77; RESP 18; TEMP 36.3; O2SAT 99
[2017-09-03 21:34] VITALS: BP 117/58; PULSE 77
[2017-09-03] MEDS: traZODone 50 MG Tablet PO (21:35)
[2017-09-04] VITALS (7 sets, daily range): BP systolic 112–120; BP diastolic 51–59; PULSE 74–88; RESP 16–18; TEMP 36.7; O2SAT 94–100
[2017-09-04] MEDS: oxyCODONE 5 MG Tablet 20 MG PO ×5 (02:19→21:19)
[2017-09-04] MEDS: Magnesium Hydroxide 30 ML UDC PO (05:12)
[2017-09-04] MEDS: Metoprolol Tartrate 50 MG Tablet PO ×3 (05:12→21:19)
[2017-09-04] MEDS: Acetaminophen 500 MG Tablet 1000 MG PO ×3 (05:13→21:19)
[2017-09-04] MEDS: Clopidogrel Bisulfate 75 MG Tablet PO (05:13)
[2017-09-04] MEDS: LINACLOTIDE 145 MCG CAPSULE PO (05:13)
[2017-09-04] MEDS: Pantoprazole Sodium 40 MG Tablet PO (05:13)
[2017-09-04] MEDS: Rivaroxaban 20 MG Tablet PO (05:14)
[2017-09-04] MEDS: Atorvastatin Calcium 20 MG Tablet PO (05:15)
[2017-09-04] MEDS: Budesonide Respules 0.5 MG/2 ML AMPUL.NEB. INHALATION ×2 (05:18→19:20)
[2017-09-04] MEDS: Albuterol 2.5 MG/3 ML VIAL.NEB. INHALATION (05:18)
[2017-09-04] MEDS: proMETHazine 25 MG Tablet PO ×2 (05:19→19:57)
[2017-09-04] MEDS: Multivitamins,Ther W-Minerals Tablet 1 TABLET PO (08:17)
[2017-09-04] MEDS: SODIUM CHLORIDE 1 GM TABLET PO (08:17)
[2017-09-04] MEDS: Ferrous Gluconate 325 MG Tablet 324 MG PO (08:17)
[2017-09-04] MEDS: Gabapentin 600 MG Tablet PO ×3 (08:17→17:00)
--- NOTE | 2017-09-04 10:30 | CASEMGMT ---
Plan of care meeting held. Resident present as well as resident brother. No discharge date has been set set at this time. Resident to continue with further care and treatment on the Transitional Care Unit. Resident plans to discharge home with brother at time of discharge. Resident with insurance update due on 09/06/17 and is aware that continued stay approval is not guaranteed. Support given. Will continue to follow. Arlene MEDINA, INFORMATICS PHYSICIAN LIAISON
[2017-09-04] MEDS: Ondansetron ODT 4 MG Tablet PO (10:34)
[2017-09-04] MEDS: Ipratropium/Albuterol Sulfate 3 ML AMPUL.NEB INHALATION ×2 (13:10→19:20)
[2017-09-04] MEDS: traZODone 50 MG Tablet PO (21:19)
[2017-09-05] VITALS (7 sets, daily range): BP systolic 107–140; BP diastolic 57–74; PULSE 80–94; RESP 15–20; TEMP 36.4; O2SAT 94–98
[2017-09-05] MEDS: Rivaroxaban 20 MG Tablet PO (05:05)
[2017-09-05] MEDS: oxyCODONE 5 MG Tablet 20 MG PO ×5 (05:05→22:00)
[2017-09-05] MEDS: Pantoprazole Sodium 40 MG Tablet PO (05:05)
[2017-09-05] MEDS: Clopidogrel Bisulfate 75 MG Tablet PO (05:05)
[2017-09-05] MEDS: Acetaminophen 500 MG Tablet 1000 MG PO ×3 (05:05→21:56)
[2017-09-05] MEDS: Metoprolol Tartrate 50 MG Tablet PO ×3 (05:05→21:56)
[2017-09-05] MEDS: Atorvastatin Calcium 20 MG Tablet PO (05:05)
[2017-09-05] MEDS: LINACLOTIDE 145 MCG CAPSULE PO (05:05)
[2017-09-05] MEDS: Escitalopram Oxalate 10 MG Tablet PO (06:34)
[2017-09-05] MEDS: Ipratropium/Albuterol Sulfate 3 ML AMPUL.NEB INHALATION ×3 (06:55→20:00)
[2017-09-05] MEDS: Multivitamins,Ther W-Minerals Tablet 1 TABLET PO (08:12)
[2017-09-05] MEDS: Gabapentin 600 MG Tablet PO ×3 (08:12→17:04)
[2017-09-05] MEDS: SODIUM CHLORIDE 1 GM TABLET PO (08:12)
[2017-09-05] MEDS: Ferrous Gluconate 325 MG Tablet 324 MG PO (08:12)
[2017-09-05] MEDS: Ondansetron ODT 4 MG Tablet PO (09:37)
--- NOTE | 2017-09-05 14:13 | CASEMGMT ---
Brief interview for mental status (BIMS) and resident mood interview (PHQ-9) completed on this day. BIMS score 1515. PHQ-9 score 05/07
--- NOTE | 2017-09-05 15:24 | MDS.RN ---
Pain interview for karyn 09/07/17 completed.
[2017-09-05] MEDS: LORazepam 0.5 MG Tablet PO (17:03)
[2017-09-05] MEDS: proMETHazine 25 MG Tablet PO (17:58)
[2017-09-05] MEDS: Budesonide Respules 0.5 MG/2 ML AMPUL.NEB. INHALATION (20:00)
[2017-09-05] MEDS: traZODone 50 MG Tablet PO (21:56)
[2017-09-06] VITALS (8 sets, daily range): BP systolic 93–122; BP diastolic 43–65; PULSE 74–97; RESP 16–20; TEMP 36.1; O2SAT 100
[2017-09-06] MEDS: oxyCODONE 5 MG Tablet 20 MG PO ×5 (02:24→22:44)
[2017-09-06] MEDS: Metoprolol Tartrate 50 MG Tablet PO ×3 (05:06→22:45)
[2017-09-06] MEDS: Rivaroxaban 20 MG Tablet PO (05:07)
[2017-09-06] MEDS: Atorvastatin Calcium 20 MG Tablet PO (05:07)
[2017-09-06] MEDS: Acetaminophen 500 MG Tablet 1000 MG PO ×3 (05:07→22:44)
[2017-09-06] MEDS: LINACLOTIDE 145 MCG CAPSULE PO (05:07)
[2017-09-06] MEDS: Clopidogrel Bisulfate 75 MG Tablet PO (05:07)
[2017-09-06] MEDS: Escitalopram Oxalate 10 MG Tablet PO (05:07)
[2017-09-06] MEDS: Pantoprazole Sodium 40 MG Tablet PO (05:08)
--- NOTE | 2017-09-06 06:42 | NURSING ---
Pt has been refusing Ensure the last couple of says. States she does not like it. Order d/c
[2017-09-06] MEDS: Ipratropium/Albuterol Sulfate 3 ML AMPUL.NEB INHALATION ×3 (07:10→19:10)
[2017-09-06] MEDS: Budesonide Respules 0.5 MG/2 ML AMPUL.NEB. INHALATION ×2 (07:10→19:10)
[2017-09-06] MEDS: Ferrous Gluconate 325 MG Tablet 324 MG PO (08:46)
[2017-09-06] MEDS: Gabapentin 600 MG Tablet PO ×3 (08:46→16:41)
[2017-09-06] MEDS: Multivitamins,Ther W-Minerals Tablet 1 TABLET PO (08:46)
[2017-09-06] MEDS: SODIUM CHLORIDE 1 GM TABLET PO (08:46)
--- NOTE | 2017-09-06 08:50 | NURSING ---
PT WITH EPISTAXIS THIS AM, HUMIDIFICATION ADDED TO OXYGEN VIA NC. NOTED ONE SMALL PEA SIZED CLOT. STOPPED WITH APPLICATION OF COOL WASHCLOTH. BEATING MACHINE OPERATOR NOTIFIED, NEW ORDER FOR AFRIN NASAL SPRAY PRN IF NEEDED X1. OCEAN NASAL SPRAY PRN. WILL MONITOR T/O DAY
--- NOTE | 2017-09-06 10:03 | CASEMGMT ---
Insurance Clinical information faxed. Pending continued stay approval. Auth#[id number] Arlene MEDINA, TESTING SHAKING SHIPPING
--- NOTE | 2017-09-06 12:34 | NURSING ---
L stump drsg changed with adaptic, ABD and kerlix and ANGÉLICA wrap.
[2017-09-06] MEDS: LORazepam 0.5 MG Tablet PO (13:37)
[2017-09-06] MEDS: traZODone 50 MG Tablet PO (22:45)
[2017-09-07] VITALS (8 sets, daily range): BP systolic 140–158; BP diastolic 66–89; PULSE 71–96; RESP 16–18; TEMP 36.8; O2SAT 93–99
[2017-09-07] MEDS: oxyCODONE 5 MG Tablet 20 MG PO ×5 (03:57→21:33)
[2017-09-07] MEDS: Acetaminophen 500 MG Tablet 1000 MG PO ×3 (06:37→21:32)
[2017-09-07] MEDS: Pantoprazole Sodium 40 MG Tablet PO (06:38)
[2017-09-07] MEDS: Metoprolol Tartrate 50 MG Tablet PO ×3 (06:38→21:32)
[2017-09-07] MEDS: LINACLOTIDE 145 MCG CAPSULE PO (06:38)
[2017-09-07] MEDS: Atorvastatin Calcium 20 MG Tablet PO (06:38)
[2017-09-07] MEDS: Escitalopram Oxalate 10 MG Tablet PO (06:38)
[2017-09-07] MEDS: Clopidogrel Bisulfate 75 MG Tablet PO (06:38)
[2017-09-07] MEDS: Rivaroxaban 20 MG Tablet PO (06:39)
[2017-09-07] MEDS: Budesonide Respules 0.5 MG/2 ML AMPUL.NEB. INHALATION (06:49)
[2017-09-07] MEDS: Ipratropium/Albuterol Sulfate 3 ML AMPUL.NEB INHALATION ×3 (06:49→19:20)
[2017-09-07] MEDS: Gabapentin 600 MG Tablet PO ×3 (10:38→17:33)
[2017-09-07] MEDS: Multivitamins,Ther W-Minerals Tablet 1 TABLET PO (10:39)
[2017-09-07] MEDS: Ferrous Gluconate 325 MG Tablet 324 MG PO (10:39)
[2017-09-07] MEDS: SODIUM CHLORIDE 1 GM TABLET PO (10:39)
[2017-09-07] MEDS: Sodium Chloride 0.65% 1 SPRAY SPRAY.BTL NASAL (10:42)
[2017-09-07] MEDS: traZODone 50 MG Tablet PO (21:32)
[2017-09-08] MEDS: oxyCODONE 5 MG Tablet 20 MG PO ×5 (03:18→22:31)
[2017-09-08] MEDS: Acetaminophen 500 MG Tablet 1000 MG PO ×3 (05:32→22:31)
[2017-09-08 06:23] LABS: Absolute Lymphocyte Count 1.04 X10^3/ul (0.83-4.51); Absolute Neutrophil Count 2.8 X10^3/uL (2.0-7.7); Basophil# 0.02 X10^3/uL; Basophil% 0.4 % (0-1); Eosinophil# 0.35 X10^3/uL; Hematocrit 30.3 % (37-47); Hemoglobin 9.2 g/dl (12.0-15.0); Lymphocyte # 1.04 X10^3/ul (4.0); Lymphocyte % 20.8 % (19-41); Mean Corp Hgb Conc 30.4 g/gl (32-36); Mean Corpuscular Hgb 28.3 pg (27.0-32.0); Mean Corpuscular Volume 93.2 fL (81-99); Neutrophil # 2.79 X10^3/uL (2.7-7.7); Neutrophil % 55.6 % (47-70); Platelet Count 245 K/mm3 (150-450); RBC Distribution Width CV 15.5 % (11.6-14.6); RBC Distribution Width SD 53.3 fl (35.1-43.9); Red Blood Count 3.25 M/mm3 (4.2-5.4)
[2017-09-08 06:26] LABS: POSITIVE COUNT NO; POSITIVE DIFFERENTIAL NO; POSITIVE MORPHOLOGY NO
[2017-09-08 06:47] LABS: Anion Gap 6 (5-15); BUN 12 mg/dL (7-18); BUN/Creat Ratio 26.6 RATIO (10-20); Chloride 93 mmol/L (98-107); Creatinine, Serum 0.45 mg/dL (0.55-1.02); EST Glomerular Filtration Rate 148 mL/min (>60); Est Glom Filt Rate - Afr Amer 179 mL/min (>60); Estimated Creatinine Clearance 93.21 ml/min; Glucose 94 mg/dL (74-106); Potassium 4.3 mmol/L (3.5-5.1); Sodium Level 134 mmol/L (136-145)
[2017-09-08 07:48] VITALS: PULSE 89; RESP 18; O2SAT 98
[2017-09-08] MEDS: Ipratropium/Albuterol Sulfate 3 ML AMPUL.NEB INHALATION ×2 (07:48→19:40)
[2017-09-08] MEDS: Clopidogrel Bisulfate 75 MG Tablet PO (10:04)
[2017-09-08] MEDS: SODIUM CHLORIDE 1 GM TABLET PO (10:04)
[2017-09-08] MEDS: Escitalopram Oxalate 10 MG Tablet PO (10:04)
[2017-09-08] MEDS: Ferrous Gluconate 325 MG Tablet 324 MG PO (10:04)
[2017-09-08] MEDS: Gabapentin 600 MG Tablet PO ×3 (10:05→16:58)
[2017-09-08] MEDS: Multivitamins,Ther W-Minerals Tablet 1 TABLET PO (10:05)
[2017-09-08] MEDS: LINACLOTIDE 145 MCG CAPSULE PO (10:05)
[2017-09-08] MEDS: Pantoprazole Sodium 40 MG Tablet PO (10:06)
[2017-09-08] MEDS: Rivaroxaban 20 MG Tablet PO (10:06)
[2017-09-08] MEDS: Atorvastatin Calcium 20 MG Tablet PO (10:06)
[2017-09-08 10:08] VITALS: BP 124/68; PULSE 89
[2017-09-08] MEDS: Metoprolol Tartrate 50 MG Tablet PO ×2 (10:08→22:30)
--- NOTE | 2017-09-08 12:09 | NURSING ---
Patient has c/o breakthrough pain. NO for lidoderm patch to stump.
[2017-09-08 16:00] VITALS: BP 113/39; PULSE 84; RESP 18; TEMP 36.7; O2SAT 100
[2017-09-08] MEDS: Tuberculin,Purif.prot.deriv. 50 TU/ML Vial 5 ML ID (16:54)
[2017-09-08] MEDS: proMETHazine 25 MG Tablet PO (16:55)
[2017-09-08 16:57] VITALS: BP 113/39; PULSE 84
[2017-09-08] MEDS: Lidocaine 5% Patch 1 PATCH TOPICAL (18:25)
[2017-09-08 19:40] VITALS: PULSE 88; RESP 14
[2017-09-08] MEDS: Budesonide Respules 0.5 MG/2 ML AMPUL.NEB. INHALATION (19:40)
[2017-09-08 22:30] VITALS: BP 132/70; PULSE 87
[2017-09-08] MEDS: traZODone 50 MG Tablet PO (22:30)
[2017-09-09] VITALS (7 sets, daily range): BP systolic 108–117; BP diastolic 56–57; PULSE 70–84; RESP 16–18; TEMP 36.7; O2SAT 98
[2017-09-09] MEDS: oxyCODONE 5 MG Tablet 20 MG PO ×5 (04:28→21:18)
[2017-09-09] MEDS: Acetaminophen 500 MG Tablet 1000 MG PO ×3 (04:28→21:16)
[2017-09-09] MEDS: Budesonide Respules 0.5 MG/2 ML AMPUL.NEB. INHALATION ×2 (07:45→19:05)
[2017-09-09] MEDS: Ipratropium/Albuterol Sulfate 3 ML AMPUL.NEB INHALATION ×3 (07:45→19:05)
[2017-09-09] MEDS: Clopidogrel Bisulfate 75 MG Tablet PO (08:58)
[2017-09-09] MEDS: SODIUM CHLORIDE 1 GM TABLET PO (08:58)
[2017-09-09] MEDS: Metoprolol Tartrate 50 MG Tablet PO ×3 (08:58→21:17)
[2017-09-09] MEDS: Gabapentin 600 MG Tablet PO ×3 (08:58→17:19)
[2017-09-09] MEDS: Atorvastatin Calcium 20 MG Tablet PO (08:58)
[2017-09-09] MEDS: Multivitamins,Ther W-Minerals Tablet 1 TABLET PO (08:58)
[2017-09-09] MEDS: Rivaroxaban 20 MG Tablet PO (08:58)
[2017-09-09] MEDS: Escitalopram Oxalate 10 MG Tablet PO (08:59)
[2017-09-09] MEDS: Ferrous Gluconate 325 MG Tablet 324 MG PO (08:59)
[2017-09-09] MEDS: Lidocaine 5% Patch 1 PATCH TOPICAL (08:59)
[2017-09-09] MEDS: LINACLOTIDE 145 MCG CAPSULE PO (08:59)
[2017-09-09] MEDS: Pantoprazole Sodium 40 MG Tablet PO (09:00)
--- NOTE | 2017-09-09 14:33 | CASEMGMT ---
Insurance Continued stay approved with next update due on 09/13/17. Auth#[id number] Arlene MEDINA, DELICATESSEN STORE MANAGER
[2017-09-09] MEDS: LORazepam 0.5 MG Tablet PO (15:59)
[2017-09-09] MEDS: traZODone 50 MG Tablet PO (21:18)
[2017-09-10] VITALS (7 sets, daily range): BP systolic 103–146; BP diastolic 50–72; PULSE 80–89; RESP 16–18; TEMP 36.8; O2SAT 95–98
[2017-09-10] MEDS: oxyCODONE 5 MG Tablet 20 MG PO ×5 (02:45→21:00)
[2017-09-10] MEDS: Lidocaine 5% Patch 1 PATCH TOPICAL (06:12)
[2017-09-10] MEDS: Acetaminophen 500 MG Tablet 1000 MG PO ×3 (06:13→21:02)
[2017-09-10] MEDS: Metoprolol Tartrate 50 MG Tablet PO ×3 (06:13→21:02)
[2017-09-10] MEDS: Pantoprazole Sodium 40 MG Tablet PO (06:14)
[2017-09-10] MEDS: LINACLOTIDE 145 MCG CAPSULE PO (06:14)
[2017-09-10] MEDS: Rivaroxaban 20 MG Tablet PO (06:14)
[2017-09-10] MEDS: Escitalopram Oxalate 10 MG Tablet PO (06:14)
[2017-09-10] MEDS: Clopidogrel Bisulfate 75 MG Tablet PO (06:14)
[2017-09-10] MEDS: Atorvastatin Calcium 20 MG Tablet PO (06:14)
[2017-09-10] MEDS: Budesonide Respules 0.5 MG/2 ML AMPUL.NEB. INHALATION ×2 (07:35→19:00)
[2017-09-10] MEDS: Ipratropium/Albuterol Sulfate 3 ML AMPUL.NEB INHALATION ×3 (07:35→19:00)
[2017-09-10] MEDS: Multivitamins,Ther W-Minerals Tablet 1 TABLET PO (07:53)
[2017-09-10] MEDS: SODIUM CHLORIDE 1 GM TABLET PO (07:53)
[2017-09-10] MEDS: Gabapentin 600 MG Tablet PO ×3 (07:53→18:21)
[2017-09-10] MEDS: Ferrous Gluconate 325 MG Tablet 324 MG PO (07:54)
--- NOTE | 2017-09-10 14:06 | MDS.RN ---
Information for the mds was obtained from review of the clinical record, interview of resident, staff, and direct observation of resident's care.
[2017-09-10] MEDS: LORazepam 0.5 MG Tablet PO (15:13)
[2017-09-10] MEDS: traZODone 50 MG Tablet PO (21:03)
[2017-09-11] VITALS (8 sets, daily range): BP systolic 100–136; BP diastolic 57–65; PULSE 84–94; RESP 16–18; TEMP 36.9; O2SAT 98–100
[2017-09-11] MEDS: oxyCODONE 5 MG Tablet 20 MG PO ×5 (03:04→20:53)
[2017-09-11] MEDS: Lidocaine 5% Patch 1 PATCH TOPICAL (06:07)
[2017-09-11] MEDS: Acetaminophen 500 MG Tablet 1000 MG PO ×3 (06:08→20:54)
[2017-09-11] MEDS: Metoprolol Tartrate 50 MG Tablet PO ×2 (06:08→20:56)
[2017-09-11] MEDS: Escitalopram Oxalate 10 MG Tablet PO (06:09)
[2017-09-11] MEDS: Clopidogrel Bisulfate 75 MG Tablet PO (06:09)
[2017-09-11] MEDS: Atorvastatin Calcium 20 MG Tablet PO (06:09)
[2017-09-11] MEDS: Pantoprazole Sodium 40 MG Tablet PO (06:09)
[2017-09-11] MEDS: LINACLOTIDE 145 MCG CAPSULE PO (06:09)
[2017-09-11] MEDS: Rivaroxaban 20 MG Tablet PO (06:10)
[2017-09-11] MEDS: Ferrous Gluconate 325 MG Tablet 324 MG PO (07:44)
[2017-09-11] MEDS: Gabapentin 600 MG Tablet PO ×3 (07:44→17:47)
[2017-09-11] MEDS: SODIUM CHLORIDE 1 GM TABLET PO (07:45)
[2017-09-11] MEDS: Multivitamins,Ther W-Minerals Tablet 1 TABLET PO (07:45)
[2017-09-11] MEDS: Ipratropium/Albuterol Sulfate 3 ML AMPUL.NEB INHALATION ×3 (08:08→19:35)
[2017-09-11] MEDS: Budesonide Respules 0.5 MG/2 ML AMPUL.NEB. INHALATION ×2 (08:08→19:35)
--- NOTE | 2017-09-11 08:47 | NURSING ---
pt requested to speak with [employer]. New order for neurontin 300mg qhs.
[2017-09-11] MEDS: Gabapentin 300 MG Capsule PO (20:53)
[2017-09-11] MEDS: traZODone 50 MG Tablet PO (20:53)
[2017-09-12] VITALS (8 sets, daily range): BP systolic 109–153; BP diastolic 55–82; PULSE 67–87; RESP 16–18; TEMP 36.7; O2SAT 100
[2017-09-12] MEDS: oxyCODONE 5 MG Tablet 20 MG PO ×5 (03:20→21:49)
[2017-09-12] MEDS: Rivaroxaban 20 MG Tablet PO (05:08)
[2017-09-12] MEDS: Metoprolol Tartrate 50 MG Tablet PO ×3 (05:08→21:06)
[2017-09-12] MEDS: Clopidogrel Bisulfate 75 MG Tablet PO (05:08)
[2017-09-12] MEDS: Acetaminophen 500 MG Tablet 1000 MG PO ×3 (05:08→21:06)
[2017-09-12] MEDS: Pantoprazole Sodium 40 MG Tablet PO (05:08)
[2017-09-12] MEDS: Escitalopram Oxalate 10 MG Tablet PO (05:08)
[2017-09-12] MEDS: Atorvastatin Calcium 20 MG Tablet PO (05:08)
[2017-09-12] MEDS: LINACLOTIDE 145 MCG CAPSULE PO (05:08)
[2017-09-12] MEDS: Lidocaine 5% Patch 1 PATCH TOPICAL (05:10)
[2017-09-12] MEDS: Budesonide Respules 0.5 MG/2 ML AMPUL.NEB. INHALATION ×2 (07:31→18:47)
[2017-09-12] MEDS: Ipratropium/Albuterol Sulfate 3 ML AMPUL.NEB INHALATION ×3 (07:31→18:47)
[2017-09-12] MEDS: SODIUM CHLORIDE 1 GM TABLET PO (09:58)
[2017-09-12] MEDS: Ferrous Gluconate 325 MG Tablet 324 MG PO (09:58)
[2017-09-12] MEDS: Multivitamins,Ther W-Minerals Tablet 1 TABLET PO (09:58)
[2017-09-12] MEDS: Gabapentin 600 MG Tablet PO ×3 (09:58→18:01)
--- NOTE | 2017-09-12 11:00 | NURSING ---
Okay for patient to have GER for Saturday from 11-4 per Mars Martinez DNP.
[2017-09-12] MEDS: Sodium Chloride 0.65% 1 SPRAY SPRAY.BTL NASAL (11:18)
--- NOTE | 2017-09-12 14:15 | NURSING ---
Pt left unit with brother to go to appt with Dr. Hernandez. Sent with paperwork.
--- NOTE | 2017-09-12 17:43 | NURSING ---
Pt returned from appt with Dr. Hernandez. NO to consult [facility] for prosthetic evaluation and education on stump managment and no pillow to be put under stump while in bed or chair.
--- NOTE | 2017-09-12 17:52 | NURSING ---
indiana d/c'd at appointment, continue to cover with adaptic and dsd dressing with alex wraps.
[2017-09-12] MEDS: traZODone 50 MG Tablet PO (21:06)
[2017-09-12] MEDS: Gabapentin 300 MG Capsule PO (21:06)
[2017-09-13] VITALS (8 sets, daily range): BP systolic 112–139; BP diastolic 43–80; PULSE 64–97; RESP 16–18; TEMP 36.7–36.9; O2SAT 98–100
[2017-09-13] MEDS: oxyCODONE 5 MG Tablet 20 MG PO ×6 (02:40→23:47)
[2017-09-13] MEDS: Atorvastatin Calcium 20 MG Tablet PO (04:46)
[2017-09-13] MEDS: Pantoprazole Sodium 40 MG Tablet PO (04:46)
[2017-09-13] MEDS: Rivaroxaban 20 MG Tablet PO (04:46)
[2017-09-13] MEDS: LINACLOTIDE 145 MCG CAPSULE PO (04:46)
[2017-09-13] MEDS: Lidocaine 5% Patch 1 PATCH TOPICAL (04:46)
[2017-09-13] MEDS: Clopidogrel Bisulfate 75 MG Tablet PO (04:46)
[2017-09-13] MEDS: Metoprolol Tartrate 50 MG Tablet PO ×3 (04:47→21:50)
[2017-09-13] MEDS: Escitalopram Oxalate 10 MG Tablet PO (04:47)
[2017-09-13] MEDS: Acetaminophen 500 MG Tablet 1000 MG PO ×3 (04:47→21:50)
[2017-09-13] MEDS: Ondansetron ODT 4 MG Tablet PO (06:59)
[2017-09-13] MEDS: Budesonide Respules 0.5 MG/2 ML AMPUL.NEB. INHALATION ×2 (07:10→17:05)
[2017-09-13] MEDS: Ipratropium/Albuterol Sulfate 3 ML AMPUL.NEB INHALATION ×3 (07:10→17:05)
[2017-09-13] MEDS: SODIUM CHLORIDE 1 GM TABLET PO (11:17)
[2017-09-13] MEDS: proMETHazine 25 MG Tablet PO (11:17)
--- NOTE | 2017-09-13 11:48 | CASEMGMT ---
Insurance Clinical update faxed. Will await continued stay determination. Pt aware. Auth # [id number] ADAM Sanchez
--- NOTE | 2017-09-13 13:35 | MDS.RN ---
Pain interview for karyn 09/14/17 completed.
[2017-09-13] MEDS: Gabapentin 600 MG Tablet PO ×2 (13:54→17:20)
--- NOTE | 2017-09-13 15:03 | CASEMGMT ---
BIMS and PHQ9 assessments completed on this date for MDS assessment. ADAM Sanchez
[2017-09-13] MEDS: LORazepam 0.5 MG Tablet PO (20:59)
--- NOTE | 2017-09-13 21:03 | VDLE_ITS ---
Reason For Study: RLE Pain RIGHT GSV is normal. CFV is compressible, spontaneous, phasic, competent and demonstrates normal augmentation. FV is compressible, spontaneous, phasic, competent and demonstrates normal augmentation. POP V is compressible, spontaneous, phasic, competent and demonstrates normal augmentation. T/P Trunk is compressible. PTV is compressible. RT PerV is compressible. Procedure Exam performed portable in patient room. A preliminary report was called and/or faxed to TCU. Interpretation Summary Deep veins of the right lower extremity are patent and compressible segmentally. There is no evidence of right lower extremity deep vein thrombosis. Valvular competence appears intact within the proximal deep venous system on the right . The right greater saphenous vein appears patent and compressible segmentally. Ordering Physician: Mark Huber Chi Referring Physician: Irasema Jonas Performed By: Coni Gallagher, LAURA, RVT
--- NOTE | 2017-09-13 21:05 | NURSING ---
Pt c/o 3 bruise-like, palpable, quarter size areas on right lower leg. Pt very concerned that it could be blood clots and denies hitting her leg so she does not believe they are bruises. Dr. Huber aware and new order for doppler on right leg. Will update pt.
[2017-09-13] MEDS: Gabapentin 300 MG Capsule PO (21:50)
[2017-09-13] MEDS: traZODone 50 MG Tablet PO (21:51)
--- NOTE | 2017-09-13 23:46 | NURSING ---
Addendum entered by Jazmyn Martinez 09/13/17 23:54: Per Dr. Huber, give PRN oxyir now for pain. Original Note: At 2315 this pt alerted staff via the call light system that she had fallen on the floor. This RN, Jazmyn NAVA and Monica KEY entered room to find pt positioned on buttocks, on the floor in front of her BSC. Pt denies hitting head. Blood noted on floor and on ANGÉLICA bandage wrapped around stump wound. VS taken; WNL. Pt assisted back to bed at this time. Dressing to left stump wound saturated with blood, dressing changed at this time with much pressure held on wound. sort operations supervisor Chyna notified, Dr Huber notified, email sent to Chyna Chris, manager of data and STAN Victor RN. Will continue to monitor.
[2017-09-14] VITALS (8 sets, daily range): BP systolic 93–119; BP diastolic 50–62; PULSE 72–95; RESP 16–22; TEMP 36.6; O2SAT 97–98
[2017-09-14] MEDS: Ipratropium/Albuterol Sulfate 3 ML AMPUL.NEB INHALATION ×3 (00:30→20:02)
[2017-09-14] MEDS: oxyCODONE 5 MG Tablet 20 MG PO ×5 (04:50→21:55)
[2017-09-14] MEDS: Lidocaine 5% Patch 1 PATCH TOPICAL (05:01)
[2017-09-14] MEDS: Acetaminophen 500 MG Tablet 1000 MG PO ×3 (05:01→21:56)
[2017-09-14] MEDS: Budesonide Respules 0.5 MG/2 ML AMPUL.NEB. INHALATION ×2 (07:25→20:02)
--- NOTE | 2017-09-14 08:18 | NURSING ---
Addendum entered by Brisa Quijano 09/14/17 08:51: held plavix and xarelto this am per pt request Original Note: pt resting in bed, assessed lt stump incision, scant amt of sanguinous drng on old drng, cleansed and applied 5 steristrips to proximal incision slightly dehisced but scabbing noted. new drsg appled with alex wrap.
[2017-09-14] MEDS: Escitalopram Oxalate 10 MG Tablet PO (09:06)
[2017-09-14] MEDS: Atorvastatin Calcium 20 MG Tablet PO (09:06)
[2017-09-14] MEDS: LINACLOTIDE 145 MCG CAPSULE PO (09:06)
[2017-09-14] MEDS: Pantoprazole Sodium 40 MG Tablet PO (09:07)
[2017-09-14] MEDS: SODIUM CHLORIDE 1 GM TABLET PO (09:07)
[2017-09-14] MEDS: Gabapentin 600 MG Tablet PO ×2 (09:07→17:51)
[2017-09-14] MEDS: Ferrous Gluconate 325 MG Tablet 324 MG PO (09:07)
[2017-09-14] MEDS: Metoprolol Tartrate 50 MG Tablet PO ×3 (09:08→21:56)
--- NOTE | 2017-09-14 10:47 | NURSING ---
Addendum entered by Brisa Quijano 09/14/17 18:11: PT RETURNED FROM [place] AT 1730, MEDS GIVEN ORDERED. Original Note: oxyir 20mg PRN dose given for pt to take home for [place] today. Lopressor, neurontin and Tylenol meds given and pt aware of times to be taken. Pt verbalized understanding, hand written instructions given for each medication.
[2017-09-14] MEDS: traZODone 50 MG Tablet PO (21:56)
[2017-09-14] MEDS: Gabapentin 300 MG Capsule PO (21:56)
[2017-09-15] VITALS (8 sets, daily range): BP systolic 97–104; BP diastolic 44–58; PULSE 66–91; RESP 18–22; TEMP 36.6; O2SAT 3–98
[2017-09-15] MEDS: oxyCODONE 5 MG Tablet 20 MG PO ×5 (03:13→21:38)
[2017-09-15] MEDS: Lidocaine 5% Patch 1 PATCH TOPICAL (05:23)
[2017-09-15] MEDS: Acetaminophen 500 MG Tablet 1000 MG PO ×3 (05:26→21:38)
[2017-09-15] MEDS: Metoprolol Tartrate 50 MG Tablet PO ×3 (05:26→21:38)
[2017-09-15 06:18] LABS: Absolute Lymphocyte Count 1.19 X10^3/ul (0.83-4.51); Absolute Neutrophil Count 3.3 X10^3/uL (2.0-7.7); Basophil# 0.02 X10^3/uL; Basophil% 0.4 % (0-1); Eosinophil# 0.15 X10^3/uL; Eosinophils% 2.9 % (0-5); Lymphocyte # 1.19 X10^3/ul (4.0); Lymphocyte % 22.6 % (19-41); Mean Corp Hgb Conc 30.8 g/gl (32-36); Mean Corpuscular Volume 94.2 fL (81-99); Mean Platelet Vol. 9.1 fl (6.2-12.0); Monocyte% 11.4 % (0-10); Neutrophil % 62.7 % (47-70); Platelet Count 227 K/mm3 (150-450); RBC Distribution Width SD 53.3 fl (35.1-43.9); Red Blood Count 2.76 M/mm3 (4.2-5.4); White Blood Count 5.3 K/mm3 (4.4-11.0)
[2017-09-15 06:24] LABS: POSITIVE COUNT NO; POSITIVE DIFFERENTIAL NO; POSITIVE MORPHOLOGY NO
[2017-09-15 06:34] LABS: Anion Gap 4 (5-15); BUN 18 mg/dL (7-18); BUN/Creat Ratio 33.3 RATIO (10-20); Calcium,Total 8.7 mg/dL (8.5-10.1); Chloride 95 mmol/L (98-107); Creatinine, Serum 0.54 mg/dL (0.55-1.02); EST Glomerular Filtration Rate 120 mL/min (>60); Est Glom Filt Rate - Afr Amer 145 mL/min (>60); Estimated Creatinine Clearance 75.91 ml/min; Glucose 100 mg/dL (74-106); Potassium 4.2 mmol/L (3.5-5.1); Sodium Level 132 mmol/L (136-145)
[2017-09-15] MEDS: Budesonide Respules 0.5 MG/2 ML AMPUL.NEB. INHALATION ×2 (06:44→19:20)
[2017-09-15] MEDS: Ipratropium/Albuterol Sulfate 3 ML AMPUL.NEB INHALATION ×3 (06:44→19:20)
[2017-09-15] MEDS: Ferrous Gluconate 325 MG Tablet 324 MG PO (08:49)
[2017-09-15] MEDS: LINACLOTIDE 145 MCG CAPSULE PO (08:49)
[2017-09-15] MEDS: Escitalopram Oxalate 10 MG Tablet PO (08:49)
[2017-09-15] MEDS: Gabapentin 600 MG Tablet PO ×3 (08:49→17:35)
[2017-09-15] MEDS: SODIUM CHLORIDE 1 GM TABLET PO (08:50)
[2017-09-15] MEDS: Rivaroxaban 20 MG Tablet PO (08:50)
[2017-09-15] MEDS: Atorvastatin Calcium 20 MG Tablet PO (08:50)
[2017-09-15] MEDS: Pantoprazole Sodium 40 MG Tablet PO (08:50)
[2017-09-15] MEDS: Clopidogrel Bisulfate 75 MG Tablet PO (08:50)
--- NOTE | 2017-09-15 14:11 | NURSING ---
Addendum entered by Deepthi Aleman 09/16/17 18:18: xray reviewed, nno Original Note: pt c/o increased pain to lt hip today. dr farooq notified, new order for xray.
--- NOTE | 2017-09-15 14:20 | RAD_ITS ---
STUDY: X-RAY - PELVIS AND LEFT HIP REASON FOR EXAM: Female, 67 years old. And pain and fall TECHNIQUE: Radiological exam, hip, unilateral, with pelvis when performed; 2 or 3 views. COMPARISON: None. FINDINGS: No evidence for acute fractures. Bilateral vascular stent device is in the iliac arteries seen. Calcifications overlying the iliac bones also seen. Calcific densities in the subcutaneous of the right proximal thigh. Vascular calcifications. Multiple surgical clips. Overlying bowel gas limits assessment of the sacrum. No evidence for acute femoral neck fractures. The superior and inferior pubic rami are within normal limits. IMPRESSION: No definite evidence for acute femoral neck fracture seen. Electronically Signed: Sidney Esposito, at 15:05 EDT Tel , Service support , RAD/HIP, UNI W/ Pelvis 2-3 Views
[2017-09-15] MEDS: Magnesium Hydroxide 30 ML UDC PO (15:17)
[2017-09-15] MEDS: traZODone 50 MG Tablet PO (21:38)
[2017-09-15] MEDS: Gabapentin 300 MG Capsule PO (21:38)
[2017-09-16] VITALS (7 sets, daily range): BP systolic 105–116; BP diastolic 49–73; PULSE 65–94; RESP 18; TEMP 36.6; O2SAT 98–99
[2017-09-16] MEDS: oxyCODONE 5 MG Tablet 20 MG PO ×5 (02:41→22:57)
[2017-09-16] MEDS: Lidocaine 5% Patch 1 PATCH TOPICAL (06:14)
[2017-09-16] MEDS: Metoprolol Tartrate 50 MG Tablet PO ×3 (06:15→21:24)
[2017-09-16] MEDS: Acetaminophen 500 MG Tablet 1000 MG PO ×3 (06:15→21:24)
[2017-09-16] MEDS: Magnesium Hydroxide 30 ML UDC PO (06:17)
[2017-09-16] MEDS: Ipratropium/Albuterol Sulfate 3 ML AMPUL.NEB INHALATION ×3 (07:13→18:38)
[2017-09-16] MEDS: Budesonide Respules 0.5 MG/2 ML AMPUL.NEB. INHALATION ×2 (07:13→18:38)
[2017-09-16] MEDS: LINACLOTIDE 145 MCG CAPSULE PO (10:13)
[2017-09-16] MEDS: Clopidogrel Bisulfate 75 MG Tablet PO (10:13)
[2017-09-16] MEDS: SODIUM CHLORIDE 1 GM TABLET PO (10:13)
[2017-09-16] MEDS: Pantoprazole Sodium 40 MG Tablet PO (10:13)
[2017-09-16] MEDS: Ferrous Gluconate 325 MG Tablet 324 MG PO (10:14)
[2017-09-16] MEDS: Escitalopram Oxalate 10 MG Tablet PO (10:14)
[2017-09-16] MEDS: Rivaroxaban 20 MG Tablet PO (10:14)
[2017-09-16] MEDS: Atorvastatin Calcium 20 MG Tablet PO (10:14)
[2017-09-16] MEDS: Gabapentin 600 MG Tablet PO ×3 (10:14→18:22)
[2017-09-16] MEDS: proMETHazine 25 MG Tablet PO (11:02)
--- NOTE | 2017-09-16 15:40 | NURSING ---
Addendum entered by Deepthi Aleman 09/16/17 17:29: [employer] advertising sales representative in to see patient, education provided on prosthesis. will f/u in 1 week for possible fitting of stump fermenter operator if wound is healed. call with any questions. Original Note: Power Marketer from [employer] will be here today around 1630 for education and fitting of prosthetic leg.
--- NOTE | 2017-09-16 18:18 | NURSING ---
Doppler reviewed by MANDI Wynne. Negative for DVT
[2017-09-16] MEDS: Gabapentin 300 MG Capsule PO (21:24)
[2017-09-16] MEDS: traZODone 50 MG Tablet PO (21:27)
[2017-09-17] VITALS (7 sets, daily range): BP systolic 100–144; BP diastolic 50–59; PULSE 71–101; RESP 16–18; TEMP 36.9; O2SAT 96–100
[2017-09-17] MEDS: oxyCODONE 5 MG Tablet 20 MG PO ×5 (04:46→23:31)
[2017-09-17] MEDS: Acetaminophen 500 MG Tablet 1000 MG PO ×3 (04:49→21:26)
[2017-09-17] MEDS: Metoprolol Tartrate 50 MG Tablet PO ×3 (04:49→21:27)
[2017-09-17] MEDS: Lidocaine 5% Patch 1 PATCH TOPICAL (04:52)
[2017-09-17] MEDS: Ipratropium/Albuterol Sulfate 3 ML AMPUL.NEB INHALATION ×2 (07:01→22:12)
[2017-09-17] MEDS: Budesonide Respules 0.5 MG/2 ML AMPUL.NEB. INHALATION ×2 (07:01→22:12)
[2017-09-17] MEDS: Ferrous Gluconate 325 MG Tablet 324 MG PO (10:49)
[2017-09-17] MEDS: Gabapentin 600 MG Tablet PO ×3 (10:49→17:02)
[2017-09-17] MEDS: Escitalopram Oxalate 10 MG Tablet PO (10:50)
[2017-09-17] MEDS: LINACLOTIDE 145 MCG CAPSULE PO (10:51)
[2017-09-17] MEDS: Atorvastatin Calcium 20 MG Tablet PO (10:51)
[2017-09-17] MEDS: Rivaroxaban 20 MG Tablet PO (10:52)
[2017-09-17] MEDS: SODIUM CHLORIDE 1 GM TABLET PO (10:52)
[2017-09-17] MEDS: Clopidogrel Bisulfate 75 MG Tablet PO (10:52)
[2017-09-17] MEDS: Pantoprazole Sodium 40 MG Tablet PO (10:52)
[2017-09-17] MEDS: Multivitamins,Ther W-Minerals Tablet 1 TABLET PO (10:52)
--- NOTE | 2017-09-17 10:55 | CASEMGMT ---
Insurance Continued stay denied with last cover day being 09/19/17 and resident to discharge or financial responsibility to begin on 09/20/17. Auth#[id number] Arlene MEDINA, MEDICAL CLAIMS ASSISTANT
[2017-09-17] MEDS: LORazepam 0.5 MG Tablet PO ×3 (10:56→23:31)
--- NOTE | 2017-09-17 10:56 | CASEMGMT ---
Social Work Spoke with resident in room. This pediatric social worker notifying resident of insurance decision to discontinue coverage at this time with a last cover day of 09/19/17 and resident to discharge or financial responsibility to begin on 09/20/17. Resident voicing understanding and agreeable to discharge date. Resident plans to discharge home with brother and continued PASSPORT services. This pediatric social worker communicating to resident that physical and occupational therapy as well as assisted are recommending for resident to continue with services. Resident is agreeable to recommendation and requesting for home health services to be set up through [facility]. Resident also reporting to have all needed durable medical equipment already set up within the home. Resident brother to provide transportation home for resident at time of discharge. Support given. Telephone call to [facility]. This pediatric social worker making referral for physical and occupational along with assisted. [facility] reporting to not be taking any skilled services at this time and are unable to accept resident. Will follow up with resident on other options. Telephone call to PASSPORT services, Daniel (case coordinator). This pediatric social worker communicating resident discharge date and plan via secure voicemail. Proposed discharge date: 09/20/17 PLAN: Discharge home with brother and home health services. Arlene MEDINA, BOW MAKER GIFT WRAPPING
--- NOTE | 2017-09-17 14:54 | CASEMGMT ---
Social Work Spoke with resident in room in regards to home health services. Resident requesting for a referral to be made to [facility] ([facility]). Telephone call to [facility], [place]. This social secretary making referral for physical and occupational therapy as well as fci. Order to be completed. Proposed discharge date: 09/20/17 PLAN: Discharge home with brother and home health services. Arlene MEDINA, RD SCIENTIST
[2017-09-17] MEDS: Albuterol 2.5 MG/3 ML VIAL.NEB. INHALATION (16:15)
--- NOTE | 2017-09-17 16:37 | CHAPLAIN ---
Type of Pastoral Visit _x__ Initial Visit ___ Follow-up Visit ___ On-call Visit ___ General Patient Visit ___ Spiritual Assessment ___ Family Conference ___ Bereavement ___ Rapid Response ___ Code Blue ___ Other (describe below) Pastoral Care Referral From _x__ Patient ___ Family ___ Nurse ___ Physician ___ Aircraft Electronics Technical Officer ___ Volunteer Coordinator ___ Other (describe below) Sacrament/Intervention _x__ Active listening ___ Anointing ___ Sabianism ___ Bereavement ___ Communion ___ Jumana exploration ___ ___ Life review _x__ Prayer ___ Reconciliation ___ Sacrament of Sick _x__ Supportive presence ___ Wedding ___ Other (describe below) Pastoral Comments
--- NOTE | 2017-09-17 16:40 | NURSING ---
Addendum entered by Kari Monterroso 09/17/17 19:55: Clarified NPO orders with Dr. Mills. Patient is to have no medication after midnight. Original Note: Patient's incision with inflammation, erythema, warmth and increased pain with purulent drainage. Clinical staff at [facility] made aware, Dr. Mills to come to unit in morning to see patient, patient to be NPO after midnight tonight. Patient updated.
--- NOTE | 2017-09-17 20:43 | PCM.DC ---
- Discharge Diagnoses Current Active Problems: Current Active and Chronic Problems (Last Reviewed 04/17/17 @ 14:47 by Red Millan MD) Foot ulcer, left (Chronic) Diabetes mellitus (Chronic) Tobacco abuse (Chronic) Neuropathic pain (Chronic) Seizure disorder (Chronic) You will use the following diet at home:: No restrictions, Regular Your food should be the consistency of: Regular Your liquids should be the consistency of: Regular/Thin Discharge Activity: Return to Normal Activity, May Shower, Use Walker Weight Bearing Status: Weight bearing as tolerated Call your doctor if you observe: Fever of 101 or Higher, Inability to urinate, Inability to have a bowel movement, Shortness of breath, Chest pain, Uncontrolled pain Allergies/Adverse Reactions: Allergies levofloxacin [From Levaquin] Allergy (Verified 08/21/17 15:01) Other Red streak up her arm and itiching pregabalin [From Lyrica] Allergy (Verified 08/28/17 09:34) Other Sulfa (Sulfonamide Antibiotics) Allergy (Verified 08/21/17 15:01) Anaphylaxis duloxetine [From Cymbalta] Adverse Reaction (Verified 08/21/17 15:01) Vomiting sertraline HCl [From Zoloft] Adverse Reaction (Verified 08/21/17 15:01) MAKES ME CRAZY makes me crazy Medications to take at Discharge Linacolotide [Linzess] 145 mcg PO DAILY 04/04/17 Metoprolol Tartrate [Lopressor (beta lorie)] 50 mg PO TID 04/04/17 traZODone [Desyrel] 50 mg PO QHS 04/04/17 Albuterol Aerosols [Ventolin Aerosols] 2.5 mg INHALATION Q4H PRN PRN 04/05/17 Albuterol IH (ProAir) [Proair Hfa] 2 puff INHALATION Q6H PRN PRN 04/05/17 Gabapentin [Neurontin] 600 mg PO TIDCM 04/05/17 Ipratropium/Albuterol Sulfate [Duoneb] 3 ml INHALATION Q6HWA.RT 04/05/17 Sodium Chloride 1 gm PO DAILY 04/05/17 Clopidogrel Bisulfate [Plavix] 75 mg PO DAILY 07/13/17 Rivaroxaban [Xarelto] 20 mg PO DAILY 07/13/17 Atorvastatin Calcium [Lipitor] 20 mg PO QDAY 08/21/17 Budesonide Aerosol [Pulmicort Respules] 0.5 mg INHALATION BID 08/21/17 Ferrous Gluconate 324 mg PO DAILY 08/29/17 Acetaminophen [Tylenol] 1,000 mg PO Q8 08/31/17 Multivitamins,Ther W-Minerals [Multivitamin With Minerals] 1 tablet PO DAILYCM 08/31/17 Escitalopram Oxalate [Lexapro] 10 mg PO DAILY@0800 #30 tab 09/17/17 Lidocaine [Lidoderm Patch] 1 patch TOPICAL DAILY #30 patch 09/17/17 Lorazepam [Ativan] 0.5 mg PO Q6H PRN PRN #30 tab 09/17/17 Nutritional Supplement [[place] - ORANGE FLAVOR] 1 packet PO BIDCM #60 packet 09/17/17 Oxycodone [Oxyir] 5 - 10 mg PO Q4H PRN PRN 7 Days #60 tab 09/17/17 Pantoprazole Sodium 40 mg PO DAILY #30 tablet. 09/17/17 hydrALAZINE [Apresoline] 25 mg PO Q8 PRN #90 tab 09/17/17 proMETHazine tablet [Phenergan tablet] 25 mg PO Q6H PRN PRN tablet 09/17/17 The following prescriptions were given: Oxycodone [Oxyir] 5 - 10 mg PO Q4H PRN PRN 7 Days #60 tab PRN Reason: Pain Lorazepam [Ativan] 0.5 mg PO Q6H PRN PRN #30 tab PRN Reason: ANXIETY Escitalopram Oxalate [Lexapro] 10 mg PO DAILY@0800 #30 tab hydrALAZINE [Apresoline] 25 mg PO Q8 PRN #90 tab PRN Reason: SBP >160 Lidocaine [Lidoderm Patch] 1 patch TOPICAL DAILY #30 patch Pantoprazole Sodium 40 mg PO DAILY #30 tablet. Nutritional Supplement [[place] - ORANGE FLAVOR] 1 packet PO BIDCM #60 packet Primary Care Physician: Irasema Jonas MD [Primary Care Provider] - Please follow up with your Primary Care Physician in: 1 week. Test Results: Test results from this visit will be discussed in further detail at your follow-up appointment, if applicable. Please Follow Up With: Gopal Hernandez MD When: 2 weeks. Proposed Discharge Date: 09/20/17
--- NOTE | 2017-09-17 20:45 | PCM.DC.SUM ---
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) Hammer toe of left foot (Chronic) Other specified peripheral vascular diseases (Chronic) Chronic anticoagulation (Chronic) Osteoporosis (Chronic) Acute on chronic congestive heart failure (Chronic) Cerebrovascular disease (Chronic) Status post acute ischemic stroke no residual deficit Moderate carotid disease Bilateral carotid endarterectomy Hypertension (Chronic) COPD (chronic obstructive pulmonary disease) (Chronic) Tobacco user (Chronic) Hospital Course and Treatment Imaging Results: 09/17/17 00:00 NPO [Diet: Nothing Per Oral] Type of Dietary Supplement:: Ensure Complete Is pt able to select menu?: Yes Clinical Impression(s) from Imaging Studies Hip/Pelvis X-Ray 09/15/17 14:20 Operations: None Procedures: None Summary of Care Provided: The patient is a 67 year old Female with below past medical history hospitalized for left above knee amputation 08/28/[address] Hernandez, admitted to TCU with debility, here or rehabilitation, strengthening, prior to discharge home with family. Discharge home with brother, and Home Health Services. Discharge Diet: No Restrictions Discharge Activity: Return to Normal Activity, May Shower, Use Walker Weight Bearing Status: Weight bearing as tolerated Call your doctor if you observe: Fever of 101 or Higher, Inability to urinate, Inability to have a bowel movement, Shortness of breath, Chest pain, Uncontrolled pain Home Medications: Medications to take at Discharge Linacolotide [Linzess] 145 mcg PO DAILY 04/04/17 Metoprolol Tartrate [Lopressor (beta lorie)] 50 mg PO TID 04/04/17 traZODone [Desyrel] 50 mg PO QHS 04/04/17 Albuterol Aerosols [Ventolin Aerosols] 2.5 mg INHALATION Q4H PRN PRN 04/05/17 Albuterol IH (ProAir) [Proair Hfa] 2 puff INHALATION Q6H PRN PRN 04/05/17 Gabapentin [Neurontin] 600 mg PO TIDCM 04/05/17 Ipratropium/Albuterol Sulfate [Duoneb] 3 ml INHALATION Q6HWA.RT 04/05/17 Sodium Chloride 1 gm PO DAILY 04/05/17 Clopidogrel Bisulfate [Plavix] 75 mg PO DAILY 07/13/17 Rivaroxaban [Xarelto] 20 mg PO DAILY 07/13/17 Atorvastatin Calcium [Lipitor] 20 mg PO QDAY 08/21/17 Budesonide Aerosol [Pulmicort Respules] 0.5 mg INHALATION BID 08/21/17 Ferrous Gluconate 324 mg PO DAILY 08/29/17 Acetaminophen [Tylenol] 1,000 mg PO Q8 08/31/17 Multivitamins,Ther W-Minerals [Multivitamin With Minerals] 1 tablet PO DAILYCM 08/31/17 Escitalopram Oxalate [Lexapro] 10 mg PO DAILY@0800 #30 tab 09/17/17 Lidocaine [Lidoderm Patch] 1 patch TOPICAL DAILY #30 patch 09/17/17 Lorazepam [Ativan] 0.5 mg PO Q6H PRN PRN #30 tab 09/17/17 Nutritional Supplement [[place] - ORANGE FLAVOR] 1 packet PO BIDCM #60 packet 09/17/17 Oxycodone [Oxyir] 5 - 10 mg PO Q4H PRN PRN 7 Days #60 tab 09/17/17 Pantoprazole Sodium 40 mg PO DAILY #30 tablet. 09/17/17 hydrALAZINE [Apresoline] 25 mg PO Q8 PRN #90 tab 09/17/17 proMETHazine tablet [Phenergan tablet] 25 mg PO Q6H PRN PRN tablet 09/17/17 Following Prescrptions Were Given to Patient: Oxycodone [Oxyir] 5 - 10 mg PO Q4H PRN PRN 7 Days #60 tab PRN Reason: Pain Lorazepam [Ativan] 0.5 mg PO Q6H PRN PRN #30 tab PRN Reason: ANXIETY Escitalopram Oxalate [Lexapro] 10 mg PO DAILY@0800 #30 tab hydrALAZINE [Apresoline] 25 mg PO Q8 PRN #90 tab PRN Reason: SBP >160 Lidocaine [Lidoderm Patch] 1 patch TOPICAL DAILY #30 patch Pantoprazole Sodium 40 mg PO DAILY #30 tablet. Nutritional Supplement [[place] - ORANGE FLAVOR] 1 packet PO BIDCM #60 packet Primary Care Physician: Irasema Jonas MD [Primary Care Provider] - Please follow up with your Primary Care Physician in: 1 week. Please Follow Up With: Gopal Hernandez MD When: 2 weeks. Disposition: Home with Home Health Minutes spent on discharge:: 35 Patient Condition:: Stable Medical Necessity - Tobacco Use Smoking Status: Current some day smoker Tobacco Use: Cigarettes Meaningful Use Info Meaningful Use Diagnoses (Choose all that apply): None applicable
--- NOTE | 2017-09-17 20:47 | PCM.PN.HH ---
Home Health Note - Plan Overview of reason of hospitalization: The patient is a 67 year old Female with below past medical history hospitalized for left above knee amputation 08/28/[address] Hernandez, admitted to TCU with debility, here or rehabilitation, strengthening, prior to discharge home with family. Discharge home with brother, and Home Health Services. Problems: Patient was seen for (Last Reviewed 04/17/17 @ 14:47 by Red Millan MD) Foot ulcer, left (Chronic) Diabetes mellitus (Chronic) Tobacco abuse (Chronic) Neuropathic pain (Chronic) Seizure disorder (Chronic) Complete List of Medical Problems (Last Reviewed 04/17/17 @ 14:47 by Red Millan MD) Foot ulcer, left (Chronic) Diabetes mellitus (Chronic) Tobacco abuse (Chronic) Neuropathic pain (Chronic) Seizure disorder (Chronic) Atherosclerosis of [place] artery of left lower extremity (Chronic) Chronic ulcer of left foot with fat layer exposed (Chronic) Insomnia (Chronic) Neuropathic pain (Chronic) Hyperlipidemia (Chronic) Peripheral arterial occlusive disease (Chronic) Shortness of breath (Acute) Type 2 diabetes mellitus with diabetic polyneuropathy (Chronic) Hammer toe of left foot (Chronic) Other specified peripheral vascular diseases (Chronic) Fracture of fifth toe, left, closed (Acute) Abdominal pain (Acute) Chronic anticoagulation (Chronic) Chronic hypoxemic respiratory failure (Acute) Osteoporosis (Chronic) Vertebral compression fracture (Acute) Acute on chronic congestive heart failure (Chronic) Cerebrovascular disease (Chronic) Hypertension (Chronic) COPD (chronic obstructive pulmonary disease) (Chronic) Tobacco user (Chronic) - Requirements and Reasons Disciplines Needed/Ordered: Detention, Physical Therapy Reason for Disciplines: Medication Management/Knowledge Deficit, Wound Care, Gait Training, Stair Training, Fall Prevention, Home Safety/Equipment Instruction, Balance and/or Posture Training, Transfer Training Related To: Limited/Poor Endurance, Shortness of Breath with Activity, Physical Impairments, Unsteady Gait/Balance, Fall Risk Patient is unable to leave the home: Without Aid of Supportive Devices (crutches, cane, wheelchair, walker), Without the assistance of another person - Additional Disciplines Additional Disciplines Needed/Ordered: Occupational Therapy
[2017-09-17] MEDS: traZODone 50 MG Tablet PO (21:27)
[2017-09-17] MEDS: Gabapentin 300 MG Capsule PO (21:36)
[2017-09-18] VITALS (7 sets, daily range): BP systolic 129–144; BP diastolic 35–76; PULSE 70–97; RESP 16–20; TEMP 37.1; O2SAT 98–100
--- NOTE | 2017-09-18 06:36 | PCM.CONS.GEN ---
Reason for Consult Date of Consultation: 09/18/17 Reason for Consultation: Increased drainage and pain left above-knee amputation incision History of Present Illness: The patient is a 67 year old F that had a above-knee amputation by Dr. Hernandez August 28, 2017. Patient was doing very well until she sustained a fall landing directly onto her left stump. Since that time she has had increased bleeding and drainage. 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) Hammer toe of left foot (Chronic) Other specified peripheral vascular diseases (Chronic) Chronic anticoagulation (Chronic) Osteoporosis (Chronic) Acute on chronic congestive heart failure (Chronic) Cerebrovascular disease (Chronic) Status post acute ischemic stroke no residual deficit Moderate carotid disease Bilateral carotid endarterectomy Hypertension (Chronic) COPD (chronic obstructive pulmonary disease) (Chronic) Tobacco user (Chronic) Medical History: Medical History (Last Reviewed 04/17/17 @ 14:47 by Red Millan MD) Atherosclerosis of [place] artery of left lower extremity (Chronic) I70.202 Neuropathic pain (Chronic) M79.2 Hyperlipidemia (Chronic) E78.5 Peripheral arterial occlusive disease (Chronic) I77.9 Type 2 diabetes mellitus with diabetic polyneuropathy (Chronic) E11.42 Osteoporosis (Chronic) M81.0 Acute on chronic congestive heart failure (Chronic) I50.9 Cerebrovascular disease (Chronic) I67.9 Status post acute ischemic stroke no residual deficit Moderate carotid disease Bilateral carotid endarterectomy Hypertension (Chronic) I10 COPD (chronic obstructive pulmonary disease) (Chronic) J44.9 Tobacco user (Chronic) Z72.0 abdominal aorta endovascular stent graft Allergies levofloxacin [From Levaquin] Allergy (Verified 08/21/17 15:01) Other Red streak up her arm and itiching pregabalin [From Lyrica] Allergy (Verified 08/28/17 09:34) Other Sulfa (Sulfonamide Antibiotics) Allergy (Verified 08/21/17 15:01) Anaphylaxis duloxetine [From Cymbalta] Adverse Reaction (Verified 08/21/17 15:01) Vomiting sertraline HCl [From Zoloft] Adverse Reaction (Verified 08/21/17 15:01) MAKES ME CRAZY makes me crazy Home Medications: Ambulatory Orders Medication Instructions Recorded Linacolotide [Linzess] 145 mcg PO DAILY 04/04/17 Metoprolol Tartrate [Lopressor 50 mg PO TID 04/04/17 (beta lorie)] traZODone [Desyrel] 50 mg PO QHS 04/04/17 Albuterol Aerosols [Ventolin 2.5 mg INHALATION Q4H PRN PRN 04/05/17 Aerosols] Albuterol IH (ProAir) [Proair Hfa] 2 puff INHALATION Q6H PRN PRN 04/05/17 Gabapentin [Neurontin] 600 mg PO TIDCM 04/05/17 Ipratropium/Albuterol Sulfate 3 ml INHALATION Q6HWA.RT 04/05/17 [Duoneb] Sodium Chloride 1 gm PO DAILY 04/05/17 Clopidogrel Bisulfate [Plavix] 75 mg PO DAILY 07/13/17 Rivaroxaban [Xarelto] 20 mg PO DAILY 07/13/17 Atorvastatin Calcium [Lipitor] 20 mg PO QDAY 08/21/17 Budesonide Aerosol [Pulmicort 0.5 mg INHALATION BID 08/21/17 Respules] Ferrous Gluconate 324 mg PO DAILY 08/29/17 Acetaminophen [Tylenol] 1,000 mg PO Q8 08/31/17 Multivitamins,Ther W-Minerals 1 tablet PO DAILYCM 08/31/17 [Multivitamin With Minerals] Escitalopram Oxalate [Lexapro] 10 mg PO DAILY@0800 #30 tab 09/17/17 Lidocaine [Lidoderm Patch] 1 patch TOPICAL DAILY #30 patch 09/17/17 Lorazepam [Ativan] 0.5 mg PO Q6H PRN PRN #30 tab 09/17/17 Nutritional Supplement [[place] - 1 packet PO BIDCM #60 packet 09/17/17 ORANGE FLAVOR] Oxycodone [Oxyir] 5 - 10 mg PO Q4H PRN PRN 7 Days 09/17/17 #60 tab Pantoprazole Sodium 40 mg PO DAILY #30 tablet. 09/17/17 hydrALAZINE [Apresoline] 25 mg PO Q8 PRN #90 tab 09/17/17 proMETHazine tablet [Phenergan 25 mg PO Q6H PRN PRN tablet 09/17/17 tablet] Surgical History: Surgical History (Last Reviewed 04/17/17 @ 14:47 by Red Millan MD) History of appendectomy Z98.890, Z90.49 History of bilateral carotid endarterectomy Z98.890 History of hysterectomy Z98.890, Z90.710 bilateral femoral endarterectomy bilateral iliac stenting Surgical History: appendectomy, hysterectomy, - - Bilateral carotid endarterectomy,pad surgery with stents. 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 Lives: With Family Smoking Status: Current some day smoker Tobacco Use: Cigarettes Alcohol: None Drugs: None - *Family History Paternal Family History: Family History (Last Reviewed 04/17/17 @ 14:47 by Red Millan MD) Mother CVA (cerebral vascular accident) History Items: Heart Disease Maternal Family History: Family History (Last Reviewed 04/17/17 @ 14:47 by Red Millan MD) Mother CVA (cerebral vascular accident) History Items: No pertinent history Review of Systems Constitutional: Denies: Chills, Fever, Weight Change HEENT: Denies: Head Aches, Sinus Congestion, Sinus Drainage Cardiovascular: Denies: Chest Pain, Palpitations Respiratory: Denies: Cough, Shortness of breath at rest, Sputum production Gastrointestinal: Denies: Abdominal Pain, Nausea, Vomiting Musculoskeletal: Reports: - - Per history of present illness - Physical Exam General: Alert, Oriented x3, Cooperative HEENT: Atraumatic Neck: Supple Lungs: Normal air movement Musculoskeletal: - - The incision is well approximated. There is some mild erythema about the incision. There is some scant drainage noted at the anterior medial most aspect of the incision. The wound is still approximated and has not dehisced. Neurological: Cranial nerves II-XII grossly intact Psych/Mental Status: Normal Affect Vital Signs Temp Pulse Resp BP Pulse Ox 98.5 F 81 18 100/50 L 96 09/17/17 16:00 09/17/17 22:12 09/17/17 22:12 09/17/17 21:27 09/17/17 22:12 Oxygen Flow Rate (L/min) 2 Oxygen Delivery Method Nasal Cannula Weight: 106 lb 4 oz Body Mass Index (BMI) 22.6 Finger Stick Blood Glucose 89 Intake and Output for Last 24 Hours 09/16/17 09/17/17 09/18/17 23:59 23:59 23:59 Intake Total 540 / 540 960 / 960 Balance 540 / 540 960 / 960 Assessment/Plan All Active Problems (Last Reviewed 04/17/17 @ 14:47 by Red Millan MD) Shortness of breath (Acute) Fracture of fifth toe, left, closed (Acute) Abdominal pain (Acute) Chronic hypoxemic respiratory failure (Acute) Vertebral compression fracture (Acute) Hyponatremia (Resolved) Viral syndrome (Resolved) Cellulitis of foot (Ruled-out) Drainage of left above-knee knee amputation stump with some erythema about the stump. Going to place the patient on Augmentin. We will also do a Hibiclens scrub and application of a negative pressure dressing. I do not feel further surgical debridement is necessary. The negative pressure dressing will stay on for 7 days. Patient will follow up with Dr. Hernandez as scheduled
[2017-09-18] MEDS: Metoprolol Tartrate 50 MG Tablet PO ×3 (06:54→22:25)
[2017-09-18] MEDS: oxyCODONE 5 MG Tablet 20 MG PO ×4 (06:54→22:24)
[2017-09-18] MEDS: Acetaminophen 500 MG Tablet 1000 MG PO ×3 (06:55→22:25)
[2017-09-18] MEDS: Lidocaine 5% Patch 1 PATCH TOPICAL (06:57)
[2017-09-18] MEDS: Budesonide Respules 0.5 MG/2 ML AMPUL.NEB. INHALATION (07:02)
[2017-09-18] MEDS: Ipratropium/Albuterol Sulfate 3 ML AMPUL.NEB INHALATION ×3 (07:02→19:22)
--- NOTE | 2017-09-18 08:03 | NURSING ---
pt sleeping, did not wake at this time. Dr Mills will be up to apply SHIVANI wound vac this AM will administer meds later.
[2017-09-18] MEDS: LINACLOTIDE 145 MCG CAPSULE PO (09:44)
[2017-09-18] MEDS: Clopidogrel Bisulfate 75 MG Tablet PO (09:44)
[2017-09-18] MEDS: Ferrous Gluconate 325 MG Tablet 324 MG PO (09:44)
[2017-09-18] MEDS: Multivitamins,Ther W-Minerals Tablet 1 TABLET PO (09:44)
[2017-09-18] MEDS: Atorvastatin Calcium 20 MG Tablet PO (09:44)
[2017-09-18] MEDS: Escitalopram Oxalate 10 MG Tablet PO (09:44)
[2017-09-18] MEDS: Pantoprazole Sodium 40 MG Tablet PO (09:44)
[2017-09-18] MEDS: Gabapentin 600 MG Tablet PO ×3 (09:44→16:28)
[2017-09-18] MEDS: Rivaroxaban 20 MG Tablet PO (09:45)
--- NOTE | 2017-09-18 09:50 | NURSING ---
dr sahu here early AM, placed a SHIVANI wound vac on lt residual limb incision. ARIANA d/i, pt states no ANGÉLICA wrap to leg will clarify.
[2017-09-18] MEDS: Amox/Clavulanate 875 MG Tablet PO ×2 (10:33→16:28)
[2017-09-18] MEDS: SODIUM CHLORIDE 1 GM TABLET PO (10:33)
[2017-09-18] MEDS: Gabapentin 300 MG Capsule PO (22:24)
[2017-09-18] MEDS: traZODone 50 MG Tablet PO (22:26)
[2017-09-19] VITALS (9 sets, daily range): BP systolic 82–124; BP diastolic 46–94; PULSE 69–84; RESP 16–18; TEMP 36.4; O2SAT 99
[2017-09-19] MEDS: oxyCODONE 5 MG Tablet 20 MG PO ×4 (03:27→18:23)
[2017-09-19] MEDS: Acetaminophen 500 MG Tablet 1000 MG PO ×3 (06:00→21:33)
[2017-09-19] MEDS: Metoprolol Tartrate 50 MG Tablet PO ×3 (06:00→21:33)
[2017-09-19] MEDS: Lidocaine 5% Patch 1 PATCH TOPICAL (06:03)
[2017-09-19] MEDS: Ipratropium/Albuterol Sulfate 3 ML AMPUL.NEB INHALATION ×3 (07:30→19:11)
[2017-09-19] MEDS: Budesonide Respules 0.5 MG/2 ML AMPUL.NEB. INHALATION ×2 (07:30→19:11)
[2017-09-19] MEDS: Gabapentin 600 MG Tablet PO ×3 (09:18→18:23)
[2017-09-19] MEDS: Amox/Clavulanate 875 MG Tablet PO ×2 (09:18→18:23)
[2017-09-19] MEDS: Ferrous Gluconate 325 MG Tablet 324 MG PO (09:18)
[2017-09-19] MEDS: Atorvastatin Calcium 20 MG Tablet PO (09:19)
[2017-09-19] MEDS: LINACLOTIDE 145 MCG CAPSULE PO (09:19)
[2017-09-19] MEDS: Clopidogrel Bisulfate 75 MG Tablet PO (09:19)
[2017-09-19] MEDS: Escitalopram Oxalate 10 MG Tablet PO (09:19)
[2017-09-19] MEDS: Pantoprazole Sodium 40 MG Tablet PO (09:19)
[2017-09-19] MEDS: Multivitamins,Ther W-Minerals Tablet 1 TABLET PO (09:19)
[2017-09-19] MEDS: Rivaroxaban 20 MG Tablet PO (09:20)
[2017-09-19] MEDS: SODIUM CHLORIDE 1 GM TABLET PO (09:21)
[2017-09-19 18:32] LABS: Absolute Lymphocyte Count 0.96 X10^3/ul (0.83-4.51); Absolute Neutrophil Count 2.4 X10^3/uL (2.0-7.7); Basophil# 0.01 X10^3/uL; Basophil% 0.2 % (0-1); Eosinophil# 0.14 X10^3/uL; Eosinophils% 3.4 % (0-5); Hematocrit 23.1 % (37-47); Lymphocyte # 0.96 X10^3/ul (4.0); Lymphocyte % 23.1 % (19-41); Mean Corp Hgb Conc 30.3 g/gl (32-36); Mean Corpuscular Hgb 29.4 pg (27.0-32.0); Mean Corpuscular Volume 97.1 fL (81-99); Mean Platelet Vol. 8.9 fl (6.2-12.0); Monocyte% 14.4 % (0-10); Neutrophil # 2.44 X10^3/uL (2.7-7.7); Neutrophil % 58.7 % (47-70); Platelet Count 256 K/mm3 (150-450); RBC Distribution Width CV 15.6 % (11.6-14.6); RBC Distribution Width SD 52.1 fl (35.1-43.9); Red Blood Count 2.38 M/mm3 (4.2-5.4); White Blood Count 4.2 K/mm3 (4.4-11.0)
[2017-09-19 18:37] LABS: POSITIVE COUNT NO; POSITIVE DIFFERENTIAL NO; POSITIVE MORPHOLOGY NO
--- NOTE | 2017-09-19 18:53 | NURSING ---
dr farooq updated on hgb 7.0, new order to transfuse 2 units of blood, 20mg lasix iv in between units tomorrow in AM. Delay discharge for one day. check h/h on saturday. ADAM Jacobs notified.
[2017-09-19] MEDS: Gabapentin 300 MG Capsule PO (21:33)
[2017-09-19] MEDS: traZODone 50 MG Tablet PO (21:33)
[2017-09-20] VITALS (7 sets, daily range): BP systolic 134–166; BP diastolic 63–87; PULSE 66–81; RESP 17–20; TEMP 36.1; O2SAT 92–98
[2017-09-20] MEDS: oxyCODONE 5 MG Tablet 20 MG PO ×5 (02:01→19:52)
[2017-09-20] MEDS: Metoprolol Tartrate 50 MG Tablet PO ×3 (06:25→21:23)
[2017-09-20] MEDS: Acetaminophen 500 MG Tablet 1000 MG PO ×3 (06:26→21:26)
[2017-09-20] MEDS: Lidocaine 5% Patch 1 PATCH TOPICAL (06:27)
[2017-09-20] MEDS: Ipratropium/Albuterol Sulfate 3 ML AMPUL.NEB INHALATION ×3 (07:26→19:57)
[2017-09-20] MEDS: Budesonide Respules 0.5 MG/2 ML AMPUL.NEB. INHALATION (07:26)
[2017-09-20] MEDS: Gabapentin 600 MG Tablet PO ×3 (08:52→17:41)
[2017-09-20] MEDS: Ferrous Gluconate 325 MG Tablet 324 MG PO (08:53)
[2017-09-20] MEDS: Amox/Clavulanate 875 MG Tablet PO ×2 (08:53→17:41)
[2017-09-20] MEDS: Escitalopram Oxalate 10 MG Tablet PO (08:54)
[2017-09-20] MEDS: LINACLOTIDE 145 MCG CAPSULE PO (08:55)
[2017-09-20] MEDS: Multivitamins,Ther W-Minerals Tablet 1 TABLET PO (08:55)
[2017-09-20] MEDS: Clopidogrel Bisulfate 75 MG Tablet PO (08:55)
[2017-09-20] MEDS: Rivaroxaban 20 MG Tablet PO (08:56)
[2017-09-20] MEDS: Pantoprazole Sodium 40 MG Tablet PO (08:56)
[2017-09-20] MEDS: Atorvastatin Calcium 20 MG Tablet PO (08:57)
--- NOTE | 2017-09-20 09:11 | NURSING ---
written orders faxed to infusion center and pt t&c pending. infusion center called and aware of pt coming this am
--- NOTE | 2017-09-20 09:15 | NURSING ---
Pt taken down via wheelchair to receive 2 units of PBRC.
--- NOTE | 2017-09-20 09:22 | CASEMGMT ---
Social Work Spoke with team. Dr. Huber is recommending for resident to continue with stay another day due to having blood transfusion today and wanting to monitor resident over the night. Explained to team that resident was cut by insurance but that this social media director will attempt to get more days approved due to medical status change. Telephone call to resident insurance, Mag[employer]. Magaly reporting to be able to approve another three days due to medical status and to allow for another Notice of Medicare Non-coverage to be issued. Last cover day is now 09/22/17 with resident to discharge or financial responsibility to begin on 09/23/17. Spoke with resident in room. This social media director communicating what insurance said. Resident voicing understanding and agreeable to continue with stay due to medical status change and Dr. Huber wanting to follow resident for another day. Resident also aware that resident could choose to leave sooner then Saturday if resident chooses to. Resident voicing understanding. Resident also reporting to this social media director to need a new wheelchair. Resident voicing that current wheelchair is older then 5 years and would like to try and get another wheelchair. Resident requesting for wheelchair to be set up through [facility] and delivered to resident home on Saturday as resident other wheelchair is already here in the building. Resident reporting that current wheelchair does not have working breaks. Resident plans to have transportation home provided by resident brother. Support given. Telephone call to Jumana Porter. This social media director making referral for wheelchair. Wheelchair to be delivered to resident home on Saturday per resident request. Order faxed. Updated home health services on change of discharge plan. Proposed discharge date: 09/23/17 PLAN: Discharge to home with brother and home health services. Arlene MEDINA, CHIMNEY BUILDER
[2017-09-20] MEDS: SODIUM CHLORIDE 1 GM TABLET PO (11:43)
[2017-09-20] MEDS: LORazepam 0.5 MG Tablet PO (15:49)
--- NOTE | 2017-09-20 19:59 | CPS ---
PATIENT RECIEVED DUONEB AEROSOL PRIOR TO SHIFT CHANGE FROM DAY SHIFT PER REPORT.
[2017-09-20] MEDS: traZODone 50 MG Tablet PO (21:23)
[2017-09-20] MEDS: Gabapentin 300 MG Capsule PO (21:26)
[2017-09-21] VITALS (8 sets, daily range): BP systolic 133–153; BP diastolic 65–75; PULSE 66–88; RESP 18–20; TEMP 36.8; O2SAT 94–97
[2017-09-21] MEDS: oxyCODONE 5 MG Tablet 20 MG PO ×5 (05:11→21:42)
[2017-09-21] MEDS: Metoprolol Tartrate 50 MG Tablet PO ×3 (05:12→21:42)
[2017-09-21] MEDS: Acetaminophen 500 MG Tablet 1000 MG PO ×2 (05:12→13:30)
[2017-09-21] MEDS: Lidocaine 5% Patch 1 PATCH TOPICAL (05:13)
[2017-09-21] MEDS: Ipratropium/Albuterol Sulfate 3 ML AMPUL.NEB INHALATION ×3 (07:10→19:05)
[2017-09-21] MEDS: Budesonide Respules 0.5 MG/2 ML AMPUL.NEB. INHALATION ×2 (07:20→19:05)
[2017-09-21 07:52] LABS: Hematocrit 29.5 % (37-47); Hemoglobin 9.2 g/dl (12.0-15.0)
[2017-09-21] MEDS: Gabapentin 600 MG Tablet PO ×3 (10:41→17:16)
[2017-09-21] MEDS: Amox/Clavulanate 875 MG Tablet PO ×2 (10:41→17:16)
[2017-09-21] MEDS: Escitalopram Oxalate 10 MG Tablet PO (10:42)
[2017-09-21] MEDS: Multivitamins,Ther W-Minerals Tablet 1 TABLET PO (10:43)
[2017-09-21] MEDS: Atorvastatin Calcium 20 MG Tablet PO (10:43)
[2017-09-21] MEDS: Clopidogrel Bisulfate 75 MG Tablet PO (10:43)
[2017-09-21] MEDS: LINACLOTIDE 145 MCG CAPSULE PO (10:43)
[2017-09-21] MEDS: Rivaroxaban 20 MG Tablet PO (10:44)
[2017-09-21] MEDS: Pantoprazole Sodium 40 MG Tablet PO (10:44)
[2017-09-21] MEDS: SODIUM CHLORIDE 1 GM TABLET PO (10:44)
[2017-09-21] MEDS: Ferrous Gluconate 325 MG Tablet 324 MG PO (10:46)
[2017-09-21] MEDS: LORazepam 0.5 MG Tablet PO ×2 (10:54→19:51)
--- NOTE | 2017-09-21 12:08 | NURSING ---
Dr. Huber reviewed H&H, NNO
[2017-09-21] MEDS: Gabapentin 300 MG Capsule PO (21:41)
[2017-09-21] MEDS: traZODone 50 MG Tablet PO (21:41)
[2017-09-22] VITALS (7 sets, daily range): BP systolic 93–121; BP diastolic 38–62; PULSE 63–77; RESP 16–18; TEMP 36.3; O2SAT 97–100
[2017-09-22] MEDS: oxyCODONE 5 MG Tablet 20 MG PO ×5 (02:03→21:12)
[2017-09-22] MEDS: Gabapentin 600 MG Tablet PO ×3 (05:03→16:10)
[2017-09-22] MEDS: Acetaminophen 500 MG Tablet 1000 MG PO ×3 (05:03→21:12)
[2017-09-22] MEDS: Metoprolol Tartrate 50 MG Tablet PO ×2 (05:04→13:45)
[2017-09-22] MEDS: Lidocaine 5% Patch 1 PATCH TOPICAL (05:04)
--- NOTE | 2017-09-22 06:24 | NURSING ---
OFFERED PATIENT PRN STOOL SOFTENER THIS AM. PT REFUSED.
[2017-09-22 06:31] LABS: Absolute Lymphocyte Count 1.17 X10^3/ul (0.83-4.51); Absolute Neutrophil Count 2.7 X10^3/uL (2.0-7.7); Basophil# 0.01 X10^3/uL; Basophil% 0.2 % (0-1); Eosinophil# 0.19 X10^3/uL; Hematocrit 28.3 % (37-47); Hemoglobin 8.9 g/dl (12.0-15.0); Lymphocyte # 1.17 X10^3/ul (4.0); Lymphocyte % 24.4 % (19-41); Mean Corp Hgb Conc 31.4 g/gl (32-36); Mean Corpuscular Hgb 29.5 pg (27.0-32.0); Mean Corpuscular Volume 93.7 fL (81-99); Monocyte# 0.71 X10^3/uL; Monocyte% 14.8 % (0-10); Neutrophil # 2.71 X10^3/uL (2.7-7.7); Neutrophil % 56.4 % (47-70); Platelet Count 203 K/mm3 (150-450); RBC Distribution Width CV 15.8 % (11.6-14.6); RBC Distribution Width SD 52.2 fl (35.1-43.9); Red Blood Count 3.02 M/mm3 (4.2-5.4); White Blood Count 4.8 K/mm3 (4.4-11.0)
[2017-09-22 06:32] LABS: POSITIVE COUNT NO; POSITIVE DIFFERENTIAL NO; POSITIVE MORPHOLOGY NO
[2017-09-22] MEDS: Budesonide Respules 0.5 MG/2 ML AMPUL.NEB. INHALATION ×2 (06:58→19:17)
[2017-09-22] MEDS: Ipratropium/Albuterol Sulfate 3 ML AMPUL.NEB INHALATION ×2 (06:58→19:17)
[2017-09-22 07:02] LABS: Anion Gap 10 (5-15); BUN 14 mg/dL (7-18); BUN/Creat Ratio 29.3 RATIO (10-20); Calcium,Total 8.7 mg/dL (8.5-10.1); Chloride 93 mmol/L (98-107); Creatinine, Serum 0.48 mg/dL (0.55-1.02); EST Glomerular Filtration Rate 138 mL/min (>60); Est Glom Filt Rate - Afr Amer 167 mL/min (>60); Glucose 86 mg/dL (74-106); Potassium 4.5 mmol/L (3.5-5.1); Sodium Level 134 mmol/L (136-145)
[2017-09-22] MEDS: Magnesium Hydroxide 30 ML UDC PO (08:39)
[2017-09-22] MEDS: Ferrous Gluconate 325 MG Tablet 324 MG PO (09:21)
[2017-09-22] MEDS: Multivitamins,Ther W-Minerals Tablet 1 TABLET PO (09:21)
[2017-09-22] MEDS: SODIUM CHLORIDE 1 GM TABLET PO (09:21)
[2017-09-22] MEDS: Clopidogrel Bisulfate 75 MG Tablet PO (09:21)
[2017-09-22] MEDS: Atorvastatin Calcium 20 MG Tablet PO (09:21)
[2017-09-22] MEDS: Amox/Clavulanate 875 MG Tablet PO ×2 (09:21→16:10)
[2017-09-22] MEDS: Escitalopram Oxalate 10 MG Tablet PO (09:21)
[2017-09-22] MEDS: Pantoprazole Sodium 40 MG Tablet PO (09:21)
[2017-09-22] MEDS: Rivaroxaban 20 MG Tablet PO (09:21)
[2017-09-22] MEDS: LINACLOTIDE 145 MCG CAPSULE PO (09:22)
--- NOTE | 2017-09-22 15:44 | NURSING ---
Dr. Huber reviewed AM labs, NNO
[2017-09-22] MEDS: Gabapentin 300 MG Capsule PO (21:12)
[2017-09-22] MEDS: traZODone 50 MG Tablet PO (21:12)
[2017-09-23] MEDS: oxyCODONE 5 MG Tablet 20 MG PO ×2 (02:47→09:32)
[2017-09-23] MEDS: Acetaminophen 500 MG Tablet 1000 MG PO (04:52)
[2017-09-23] MEDS: Lidocaine 5% Patch 1 PATCH TOPICAL (04:53)
[2017-09-23 07:00] LABS: Hematocrit 29.9 % (37-47); Hemoglobin 9.1 g/dl (12.0-15.0)
[2017-09-23 07:33] VITALS: PULSE 80; RESP 18; O2SAT 95
[2017-09-23] MEDS: Budesonide Respules 0.5 MG/2 ML AMPUL.NEB. INHALATION (07:33)
[2017-09-23] MEDS: Ipratropium/Albuterol Sulfate 3 ML AMPUL.NEB INHALATION (07:33)
[2017-09-23 09:06] VITALS: PULSE 68
[2017-09-23] MEDS: Amox/Clavulanate 875 MG Tablet PO (09:06)
[2017-09-23] MEDS: LINACLOTIDE 145 MCG CAPSULE PO (09:06)
[2017-09-23] MEDS: Gabapentin 600 MG Tablet PO (09:06)
[2017-09-23] MEDS: Atorvastatin Calcium 20 MG Tablet PO (09:06)
[2017-09-23] MEDS: Multivitamins,Ther W-Minerals Tablet 1 TABLET PO (09:06)
[2017-09-23] MEDS: Escitalopram Oxalate 10 MG Tablet PO (09:06)
[2017-09-23] MEDS: Metoprolol Tartrate 50 MG Tablet PO (09:06)
[2017-09-23] MEDS: Ferrous Gluconate 325 MG Tablet 324 MG PO (09:06)
[2017-09-23] MEDS: Pantoprazole Sodium 40 MG Tablet PO (09:07)
[2017-09-23] MEDS: Clopidogrel Bisulfate 75 MG Tablet PO (09:07)
[2017-09-23] MEDS: SODIUM CHLORIDE 1 GM TABLET PO (09:07)
[2017-09-23] MEDS: Rivaroxaban 20 MG Tablet PO (09:07)
[2017-09-23 09:34] VITALS: BP 117/63; PULSE 81; RESP 16; TEMP 36.6; O2SAT 99
[2017-09-23 09:42] VITALS: O2SAT 99
--- NOTE | 2017-09-23 16:24 | CASEMGMT ---
Insurance Notified insurance of resident discharge on 09/23/17 to home with brother and home health services. Auth#[id number] Arlene MEDINA, DIVISION FIELD INSPECTOR
--- NOTE | 2017-09-24 14:41 | MDS.RN ---
Information for the mds was obtained from review of the clinical record, interview of resident, staff, and direct observation of resident's care.
== END 2017-09-23 10:30 | disposition home health service (06) | DRG 559 ==
PROVIDERS: Admitting Provider Family Medicine Geriatric Medicine; Family Provider Internal Medicine; PCP Internal Medicine; Visit Provider Family Medicine Geriatric Medicine
DX: Z47.81 Encounter for orthopedic aftercare following surgical amputation (principal); J96.21 Acute and chronic respiratory failure with hypoxia; Z89.612 Acquired absence of left leg above knee; E11.42 Type 2 diabetes mellitus with diabetic polyneuropathy; J44.9 Chronic obstructive pulmonary disease, unspecified; E78.5 Hyperlipidemia, unspecified; G40.909 Epilepsy, unspecified, not intractable, without status epilepticus; E11.51 Type 2 diabetes mellitus with diabetic peripheral angiopathy without gangrene; F17.210 Nicotine dependence, cigarettes, uncomplicated; K21.9 Gastro-esophageal reflux disease without esophagitis; I50.9 Heart failure, unspecified; I11.0 Hypertensive heart disease with heart failure; F32.9 Major depressive disorder, single episode, unspecified; F41.9 Anxiety disorder, unspecified
CPT/HCPCS: 36415; 36430; 73502; 80048; 85014; 85018; 85025; 86850; 86900; 86920; 93971; 94640; 97110; 97116; 97161; 97166; 97530; 97535; 97802; 99406; P9016; 90670; A4216

== ENCOUNTER → 2017-09-20 09:19 | Outpatient (CLI) | payer MEDICARE, SELFPAY ==
[2017-09-20] VITALS (7 sets, daily range): BP systolic 88–119; BP diastolic 42–78; PULSE 64–76; RESP 16–18; TEMP 36.7–37.5; O2SAT 98–100; BMI 22.5
--- NOTE | 2017-09-20 15:30 | NURSING ---
REPORT CALLED TO ROSA ISELA NAVA ON TCU, PT STABLE, READY TO TRANSPORT BACK TO U VIA WHEELCHAIR, THIS RN ACCOMPANIED.
== END ==
PROVIDERS: Family Provider Internal Medicine; PCP Internal Medicine; Visit Provider Family Medicine Geriatric Medicine
DX: D50.9 Iron deficiency anemia, unspecified (principal)
CPT/HCPCS: 36430; 86850; 86900; 86920; P9016; A4216

== ENCOUNTER 2017-12-26 15:51 | Emergency (ER) | payer MEDICARE, SELFPAY ==
[2017-12-26 15:51] VITALS: BMI 24.7
[2017-12-26 15:52] VITALS: BP 165/125; PULSE 111; PULSE 117; RESP 18; TEMP 36.7; O2SAT 94; BMI 22.7
--- NOTE | 2017-12-26 16:17 | CT_ITS ---
STUDY: CT BRAIN WITHOUT CONTRAST REASON FOR EXAM: Female, 67 years old. Headache. RADIATION DOSAGE (If Supplied By Facility): CTDIvol = ( 44.99 ) mGy, DLP = ( 796.11 ) mGycm TECHNIQUE: Transaxial CT imaging of the brain was performed without administration of intravenous contrast material. Individualized dose optimization techniques were used for this CT. COMPARISON: 08/05/2016. FINDINGS: There is no definite acute abnormality. There is diffuse mild symmetric atrophy. There is atrophy of the posterior fossa structures. There is diffuse small vessel ischemic disease of the white matter. There is no definite acute infarct. There is no bleed. There is no gross mass, mass effect, or midline shift. There is no acute abnormality of the skull. No fractures. Grossly normal orbits. Mild chronic sinusitis primarily in the right ethmoid air cells. CT/Brain/Head without Contrast IMPRESSION: Chronic age related changes and atrophy. No acute abnormality. Electronically Signed: Venkat Stevenson MD at 17:42 EST , Service support ,
--- NOTE | 2017-12-26 16:18 | RAD_ITS ---
STUDY: X-RAY CHEST REASON FOR EXAM: Female, 67 years old. Headache, cough, back pain. TECHNIQUE: PA and lateral chest COMPARISON: 08/21/2017 FINDINGS: Generalized pulmonary hyperlucency and hyperinflation with mild diffuse coarsening of the pulmonary interstitium and increased AP diameter of the chest, consistent with underlying COPD/emphysema. The lungs are otherwise acutely clear. Normal cardiomediastinal silhouette, rhea and pleural margins. Old wedge compression fractures at 2 levels of the midthoracic spine associated with prominent kyphosis. Old bilateral rib fractures. Mild scoliosis. RAD/Chest PA and Lateral IMPRESSION: Evidence of COPD/emphysema without acute superimposed cardiopulmonary process. Electronically Signed: Jam Felix, at 17:36 EST Tel , Service support ,
[2017-12-26] MEDS: Ipratropium/Albuterol Sulfate 3 ML AMPUL.NEB INHALATION (16:30)
[2017-12-26 16:32] VITALS: PULSE 94; RESP 14
[2017-12-26] MEDS: Ondansetron 4 MG/2 ML Vial IV (17:10)
[2017-12-26] MEDS: Morphine 4 MG/ML Syringe IV (17:10)
[2017-12-26] MEDS: 0.9% Normal Saline 1,000 ML 150 ML IV (17:10)
[2017-12-26 17:25] LABS: Absolute Lymphocyte Count 1.35 X10^3/ul (0.83-4.51); Absolute Neutrophil Count 3.3 X10^3/uL (2.0-7.7); Basophil# 0.01 X10^3/uL; Basophil% 0.2 % (0-1); Eosinophil# 0.09 X10^3/uL; Eosinophils% 1.7 % (0-5); Hematocrit 38.4 % (37-47); Hemoglobin 12.4 g/dl (12.0-15.0); Lymphocyte # 1.35 X10^3/ul (4.0); Mean Corp Hgb Conc 32.3 g/gl (32-36); Mean Corpuscular Hgb 30.5 pg (27.0-32.0); Mean Corpuscular Volume 94.3 fL (81-99); Mean Platelet Vol. 8.8 fl (6.2-12.0); Monocyte# 0.63 X10^3/uL; Monocyte% 11.7 % (0-10); Neutrophil # 3.32 X10^3/uL (2.7-7.7); Neutrophil % 61.4 % (47-70); POSITIVE COUNT NO; POSITIVE DIFFERENTIAL NO; POSITIVE MORPHOLOGY NO; Platelet Count 147 K/mm3 (150-450); RBC Distribution Width CV 13.7 % (11.6-14.6); Red Blood Count 4.07 M/mm3 (4.2-5.4); White Blood Count 5.4 K/mm3 (4.4-11.0)
[2017-12-26 17:33] LABS: Anion Gap 6 (5-15); BUN 12 mg/dL (7-18); BUN/Creat Ratio 20.6 RATIO (10-20); Calcium,Total 9.6 mg/dL (8.5-10.1); Chloride 95 mmol/L (98-107); Creatinine, Serum 0.58 mg/dL (0.55-1.02); EST Glomerular Filtration Rate 110 mL/min (>60); Est Glom Filt Rate - Afr Amer 133 mL/min (>60); Estimated Creatinine Clearance 72.71 ml/min; Glucose 82 mg/dL (74-106); Potassium 5.5 mmol/L (3.5-5.1); Sodium Level 131 mmol/L (136-145)
--- NOTE | 2017-12-26 17:51 | ED.VISSUMM ---
- ER Visit Summary Date of Service: 12/26/17 Chief Complaint: Headache History of Present Illness: The patient is a [address] Jonas and Dr. Millan. She reports that she has a headache that began 2 days ago. Is been intermittent over that timeframe. Is gotten much worse today. States that the stabbing frontal pain that is similar to prior headaches. 10 at 10 severity. Is worsened by light for reading. She taken Tylenol without relief. She reports she has had nausea, but no vomiting. She denies any recent injury to her head. She reports that her blood pressure is usually in the 120s systolic. She is currently on metoprolol 50 mg twice daily and reports that she took her last dose at 6 AM. On review of systems patient reports she has had a cough for the past 1-2 months that is nonproductive. She does report that she is short of breath. However, this is resolved with her nebulizer. She denies any fever, chills, or other complaints. Physical Examination: Vitals: 98.1, 165/125, 111, 18, 94% on 3 L nasal cannula which is her home O2. General: Well-nourished and well-developed. Head: Normocephalic atraumatic. Neck: Supple, no lymphadenopathy. No JVD. Nontender. Cardiovascular: Regular rate and rhythm. No murmurs. Respiratory: No respiratory distress. Mild wheezing bilaterally with good air movement. Abdominal: Soft, nontender, nondistended, normal bowel sounds. No guarding, rebound, or peritoneal signs. Back: Nontender. Extremities: Nontender, no edema. Skin: Normal color, no rash. Neurologic: Alert and oriented ?3. Cranial nerves II through XII are intact. Normal strength and sensation. Psych: Normal affect. Test Results: CBC is remarkable for platelets of 147 and monocytes 12. Chem-7 is more for sodium 131, potassium of 5.5, chloride of 95. However this is moderately hemolyzed. Clinical Impression(s) from Imaging Studies Brain CT 12/26/17 16:17 IMPRESSION: Chronic age related changes and atrophy. No acute abnormality. Electronically Signed: Venkat Stevenson MD at 17:42 EST , Service support , Chest X-Ray 12/26/17 16:18 IMPRESSION: Evidence of COPD/emphysema without acute superimposed cardiopulmonary process. Electronically Signed: Jam Felix, at 17:36 EST Tel , Service support , Emergency Department Course and Treatment: Patient had an IV placed. She was given a dose of morphine and Zofran IV. She was given albuterol and Atrovent aerosols. She is resting comfortably. Repeat blood pressure is 150/51. Treatment Plan: Patient be discharged instructions follow-up with primary care physician 1-2 days if not improving. Return to the emergency department for any worsening symptoms. Disposition: To home in improved and stable condition. Impression: 1. Cephalgia. 2. Hypertension. This note was generated with [employer] dictation software. It may contain incorrect words, spelling, and punctuation that were not noted in review of the chart prior to signing ED Disposition - Plan for ED Patient: Disposition: Home or Assisted Living Chief Complaint: Headache Instructions: ED Cephalgia Unspecified Referrals: Irasema Jonas MD [Primary Care Provider] - 1-2 Days if not improving
[2017-12-26 18:22] VITALS: BP 143/76; PULSE 89; RESP 13; O2SAT 98
== END 2017-12-26 18:22 | disposition home or self-care (01) ==
PROVIDERS: Emergency Provider Emergency Medicine; Family Provider Internal Medicine; PCP Internal Medicine
DX: R51 Headache (principal); I10 Essential (primary) hypertension; R11.2 Nausea with vomiting, unspecified; J44.9 Chronic obstructive pulmonary disease, unspecified; E11.9 Type 2 diabetes mellitus without complications; G43.909 Migraine, unspecified, not intractable, without status migrainosus; M81.0 Age-related osteoporosis without current pathological fracture; G40.909 Epilepsy, unspecified, not intractable, without status epilepticus; I73.9 Peripheral vascular disease, unspecified; Z79.02 Long term (current) use of antithrombotics/antiplatelets; Z79.899 Other long term (current) drug therapy; Z72.0 Tobacco use
CPT/HCPCS: 70450; 71046; 80048; 85025; 94640; 96361; 96374; 96375; 99285; J7030; A4216; J2405

== ENCOUNTER → 2018-01-24 08:17 | Outpatient (CLI) | payer MEDICARE, SELFPAY ==
[2017-12-26 15:52] VITALS: BMI 22.7
--- NOTE | 2018-01-24 08:19 | CT_ITS ---
STUDY: CTA OF THE ABDOMINAL AORTA AND BILATERAL LOWER EXTREMITIES REASON FOR EXAM: Female, 67 years old. Left above knee amputation, vascular graft RADIATION DOSAGE (If Supplied By Facility): CTDIvol = ( 8.10 ) mGy, DLP = ( 1208.96 ) mGycm TECHNIQUE: Axial CT angiography multi-detector data acquisition was obtained from the lung bases to the right foot following intravenous administration of 75mL ml of Isovue 370 contrast. Axial images and MIP images were reconstructed from the axial data set. Post-processing of the angiographic images was performed, with multiplanar reformation and 3D reconstruction. Individualized dose optimization techniques were used for this CT. TECHNICAL QUALITY: Fair COMPARISON: 03/22/2017 Descriptors of Narrowing: None (0%) Mild (< 50%) Moderate (50-70%) Severe (70-90%) Subtotal/Total Occlusion (90-100%) Non-Evaluable (technically non-diagnostic FINDINGS: Abdominal aorta: There is a jump graft from the celiac axis to the superior mesenteric artery with occluded proximal superior mesenteric artery stent noted, stable. Atherosclerosis of the abdominal aorta but no evidence of aneurysm. Inferior mesenteric artery: Appears to be patent at its origin. Right renal artery(arteries): There are 2 right renal arteries with generally small caliber. Severe stenosis at the origin of the dominant artery evident on image 23 of series 2. Right renal atrophy may be related to arterial stenosis. Left renal artery(arteries): Single left renal artery with stent at its origin with at least mild degree of stenosis but overall similar since the prior study. Right common iliac artery: Patent stent with minimal intimal hyperplasia. Right external iliac artery: Patent stent with mild to moderate intimal thickening resulting in up to moderate stenosis in the proximal portion. Right internal iliac artery: There is moderate diffuse narrowing. Left common iliac artery: Stent with mild degree of intimal hyperplasia but no hemodynamically significant stenosis. Left external iliac artery: Stent with mild degree of intimal hyperplasia but no hemodynamically significant stenosis. Left internal iliac artery: There is moderate diffuse narrowing. RIGHT LOWER EXTREMITY Right common femoral artery: There are surgical clips in the region of the right groin. The right common femoral artery is moderately narrowed shortly after the right external iliac artery stent, stable since the prior study. Right profundus femoris: Dominant supply of the right lower extremity without a visible hemodynamically significant stenosis. Right superficial femoral: Occluded from the femoral artery bifurcation extending just beyond the abductor canal, stable. Right popliteal artery: There is moderate stenosis of the popliteal artery in the proximal popliteal segment, stable since the prior study. The mid and distal popliteal artery is obscured by spray artifact. Right tibioperoneal trunk: Obscured Right anterior tibial artery: There is moderate diffuse narrowing, with visualization of the vessel to the anterior foot. Right posterior tibial artery: There is moderate diffuse narrowing, with visualization of the vessel to the ankle. Right peroneal artery: There is mild diffuse narrowing, with visualization of the vessel to the distal calf. LEFT LOWER EXTREMITY Left common femoral artery: Aneurysmal enlargement shortly after the external iliac artery stent but stable since the prior study. Surgical [place] noted adjacent. Left profundus femoris: Dominant supply of the remaining left lower extremity without hemodynamically significant stenosis. Left superficial femoral: Occluded, stable Above-knee amputation noted since prior study. Similar mild fibrotic changes of the lung bases. The liver, spleen and pancreas are unremarkable. Gallstone is noted. The adrenal glands are not focally enlarged. Right renal atrophy is similar since the prior study likely related to renal artery stenosis (small right renal artery is diffusely with severe stenosis of the dominant artery). No small bowel or large bowel wall thickening. No pelvic free fluid. Uterus appears to be surgically absent. Appendix is not seen. Mild levoscoliosis. There are injection granulomata in each buttock. CT/CTA Abd w/Runoff W/WO Contrast IMPRESSION: 1. Interval left above knee amputation. 2. Stable bilateral superficial femoral artery occlusion. 3. Bilateral common/external iliac artery stents similar since the prior study. Moderate stenosis of the distal right external iliac artery due to intimal hyperplasia. 4. Moderate stenosis of the RIGHT common femoral artery, shortly on external iliac artery stent. Stable. 5. Moderate multifocal right infrapopliteal artery stenosis but three-vessel runoff to the ankle noted. 6. Celiac-superior mesenteric artery surgical bypass. Occluded SMA origin stent. Stable. 7. Right renal atrophy. Severe stenosis of dominant right renal artery, stable. 8. Left renal artery stent, patent, stable. Electronically Signed: Mal Cee MD at 18:24 EST , Service support ,
--- OUTSIDE RECORDS SUMMARY | 2018-03-11 19:55 | XMS RPT_ITS ---
:1950 Author Organization OHIP Support Name Relationship Address Phone PALM, EDIS Unavailable [address] + [place] [address] R Unavailable Unavailable Unavailable WALL FIONA Unavailable [address] + [address] [place] [address] PALM, EDIS Unavailable [address] + [facility] [place] [address] R Unavailable Unavailable Unavailable WALL, FIONA Unavailable [address] + [address] [place] [address] PALM, EDIS Unavailable [address] + [facility] [place] [address] R Unavailable Unavailable Unavailable WALL, FIONA Unavailable [address] + [address] [place] [address] PALM, EDIS Unavailable [address] + [facility] [place] [address] R Unavailable Unavailable Unavailable WALL, FIONA Unavailable [address] + [address] [place] [address] PALM, EDIS Unavailable [address] + [place] [address] R Unavailable Unavailable Unavailable WALL, FIONA Unavailable [address] + [address] [place] [address] PALM, EDIS Unavailable [address] + [place] [address] R Unavailable Unavailable Unavailable WALL, FIONA Unavailable [address] + [address] [place] [address] PALM, EDIS Unavailable [address] + [facility] [place] [address] R Unavailable Unavailable Unavailable WALL, FIONA Unavailable [address] + [address] [place] [address] PALM, EDIS Unavailable [address] + [place] [address] R Unavailable Unavailable Unavailable WALL, FIONA Unavailable [address] + [address] [place] [address] PALM, EDIS Unavailable [address] + [place] [address] R Unavailable Unavailable Unavailable WALL, FIONA Unavailable [address] + [address] [place] [address] PALM, EDIS Unavailable [address] + [place] [address] R Unavailable Unavailable Unavailable WALL, FIONA Unavailable [address] + [address] [place] [address] PALM, EDIS Unavailable [address] + [place] [address] R Unavailable Unavailable Unavailable WALL, FIONA Unavailable [address] + [address] [place] [address] PALM, EDIS Unavailable [address] + [place] [address] R Unavailable Unavailable Unavailable WALL, FIONA Unavailable [address] + [address] [place] [address] PALM, TANISHA Unavailable Unavailable + WALL, FIONA Unavailable Unavailable + PALM, EDIS Unavailable [address] + [place] [address] R Unavailable Unavailable Unavailable WALL, FIONA Unavailable [address] + [address] [place] [address] PALM, EDIS Unavailable [address] + [place] [address] R Unavailable Unavailable Unavailable WALL, FIONA Unavailable [address] + [address] [place] [address] PALM, TANISHA Unavailable Unavailable + WALL, FIONA Unavailable Unavailable + PALM, EDIS Unavailable [address] + [place] [address] R Unavailable Unavailable Unavailable WALL, FIONA Unavailable [address] + [address] [place] [address] PALM, EDIS Unavailable [address] + [place] [address] R Unavailable Unavailable Unavailable WALL, FIONA Unavailable [address] + [address] [place] [address] PALM, EDIS Unavailable [address] + [place] [address] R Unavailable Unavailable Unavailable WALLFIONA Unavailable [address] + [address] [place] [address] PALM, EDIS Unavailable [address] + [place] [address] R Unavailable Unavailable Unavailable WALLFIONA Unavailable [address] + [address] [place] [address] PALM, EDIS Unavailable [address] + [place] [address] R Unavailable Unavailable Unavailable WALLFIONA Unavailable [address] + [address] [place] [address] PALM, EDIS Unavailable [address] [phone] [place] [address] R Unavailable Unavailable Unavailable WALLFIONA Unavailable [address] [phone] [place] [address] PALM, EDIS Unavailable [address] [phone] [place] [address] R Unavailable Unavailable Unavailable WALLFIONA Unavailable [address] [phone] [place] [address] PALM, EDIS Unavailable [address] [phone] [place] [address] R Unavailable Unavailable Unavailable WALLFIONA Unavailable [address] [phone] [place] [address] PALM, EDIS Unavailable [address] [phone] [place] [address] R Unavailable Unavailable Unavailable WALLFIONA Unavailable [address] [phone] [place] [address] PALM, EDIS Unavailable [address] [phone] [place] [address] R Unavailable Unavailable Unavailable WALLFIONA Unavailable [address] [phone] [place] [address] PALM, EDIS Unavailable [facility] [phone] [place] [address] R Unavailable Unavailable Unavailable FIONA OLIVO Unavailable [address] [phone] [place] [address] Care Team Providers Name Role Phone Shobha Fernandez Attending Unavailable Ganta, Paulette Primary Care Unavailable Yumi Munroe Attending Unavailable Ganta, Paulette Primary Care Unavailable Ashlie Roberto Attending Unavailable Surjit Lu Attending Unavailable Surjit Lu Referring Unavailable Ganta, Paulette Primary Care Unavailable Red Millan Attending Unavailable Ganta, Paulette Referring Unavailable Ganta, Paulette Primary Care Unavailable Shobha Fernandez Attending Unavailable Ganta, Paulette Primary Care Unavailable Aurora Hdz Attending Unavailable Hdz, Aurora A Referring Unavailable Ganta, Paulette Primary Care Unavailable Aurora Hdz Attending Unavailable Hdz, Aurora A Referring Unavailable Ganta, Paulette Primary Care Unavailable Shobha Fernandez Attending Unavailable Ganta, Paulette Primary Care Unavailable Aurora Hdz Attending Unavailable Hdz, Aurora A Referring Unavailable Ganta, Paulette Primary Care Unavailable Mayo, Mark Chi Admitting Unavailable Mayo, Mark Chi Attending Unavailable Ganta, Paulette Primary Care Unavailable Trevor Mills Consulting Unavailable David, Gopal Admitting Unavailable Paintsil, Happy Attending Unavailable David, Gopal Referring Unavailable Ganta, Paulette Primary Care Unavailable Hdz, Aurora A Consulting Unavailable Tereletsky, Mars Consulting Unavailable Paintsil, Happy Consulting Unavailable David, Gopal Admitting Unavailable White, Noemí Attending Unavailable David, Gopal Referring Unavailable Ganta, Paulette Primary Care Unavailable Hdz, Aurora A Consulting Unavailable Tereletsky, Mars Consulting Unavailable White, Noemí Consulting Unavailable David, Gopal Admitting Unavailable White, Noemí Attending Unavailable David, Gopal Referring Unavailable Ganta, Paulette Primary Care Unavailable Hdz, Aurora A Consulting Unavailable Tereletsky, Mars Consulting Unavailable White, Noemí Consulting Unavailable David, Gopal Admitting Unavailable Camron Mackey Attending Unavailable David, Gopal Referring Unavailable Ganta, Paulette Primary Care Unavailable Hdz, Aurora A Consulting Unavailable Tereletsky, Mars Consulting Unavailable David, Gopal Consulting Unavailable Paintsil, Happy Attending Unavailable David, Gopal Admitting Unavailable David, Gopal Referring Unavailable Ganta, Paulette Primary Care Unavailable Aurora Hdz Consulting Unavailable Mars Carlson Consulting Unavailable Ganta, Paulette Primary Care Unavailable Lora Waldrop Attending Unavailable Fascione, Shobha Attending Unavailable Ganta, Paulette Primary Care Unavailable Fascione, Shobha Attending Unavailable Ganta, Paulette Primary Care Unavailable Ganta, Paulette Primary Care Unavailable Ashlie Roberto Attending Unavailable Mayo, Mark Chi Admitting Unavailable Mayo, Mark Chi Attending Unavailable Mayo, Mark Chi Referring Unavailable Ganta, Paulette Primary Care Unavailable Fascione, Shobha Consulting Unavailable Aurora Hdz Consulting Unavailable Ganta, Paulette Primary Care Unavailable Abdiel Dudley Attending Unavailable Yoan Gallagher H Attending Unavailable Ganta, Paulette Referring Unavailable Mayo, Mark Chi Attending Unavailable Mayo, Mark Chi Referring Unavailable Ganta, Paulette Primary Care Unavailable Monty, Red Attending Unavailable Monty, Red Referring Unavailable Ganta, Paulette Primary Care Unavailable GANTA, PAULETTE Attending Unavailable KATZBERNICEI (ARMY RANGER) Attending Unavailable KATZKRISS (ARMY RANGER) Referring Unavailable GANTA, PAULETTE Attending Unavailable GANTA, PAULETTE Referring Unavailable BETH ROGERS (FAMILY COURT REGISTRAR) Attending Unavailable GANTA, PAULETTE Attending Unavailable GANTA, PAULETTE Referring Unavailable BETH ROGERS (FAMILY COURT REGISTRAR) Referring Unavailable GANTA, PAULETTE Attending Unavailable GANTA, PAULETTE Referring Unavailable AURORA HDZ MD Attending Unavailable MELLISSA GU, DR. PAULETTE Galaviz Primary Care Unavailable HARRIS GU, DR. VAISHALI Islas Consulting Unavailable AURORA HDZ MD Admitting Unavailable AURORA HDZ MD Attending Unavailable MELLISSA GU, DR. PAULETTE Galaviz Primary Care Unavailable RAMIREZ PAULINO Attending Unavailable RAMIREZ PAULINO Referring Unavailable IMCA Primary Care Unavailable PROBLEMS PROBLEMS DATE TYPE CONDITION / CODE ATTENDING STATUS SOURCE 01/24/2018 Unknown I70.221 - Aurora Hdz Active [facility] Atherosclerosis of Community [facility] [facility] extremities with rest Repository pain, right leg / I70.221(ICD-10) 07/05/2016 Active Hypo-osmolality and NA Active [facility] hyponatremia / Clinic Main E87.1(ICD-10) [place] Repository 10/15/2017 Active Personal history of NA Active [facility] other medical Clinic Main treatment / [facility] Z92.89(ICD-10) Repository 09/24/2017 Unknown Z47.81 - Encounter Mayo, Mark Chi Active [facility] for orthopedic Community aftercare following Hospital surgical amputation / Repository Z47.81(ICD-10) 09/24/2017 Unknown G89.18 - Other acute Mayo, Mark Chi Active [facility] postprocedural pain / Community G89.18(ICD-10) Hospital Repository 07/13/2017 Unknown L97.909 - [place] Active [facility] Non-pressure chronic Community ulcer of unspecified Hospital part of unspecified Repository lower leg with unspecified severity / L97.909(ICD-10) 06/29/2017 Active Unknown / PAULETTE MALLOY Active [facility] UNK(Unknown) Clinic Main [place] Repository 06/05/2017 Active Right upper quadrant NA Active [facility] pain / R10.11(ICD-10) Clinic Main [place] Repository 06/05/2017 Active Other residential NA Active [facility] (current) drug Clinic Main therapy / [place] Z79.899(ICD-10) Repository 05/16/2017 Unknown M79.672 - Pain in [place], Active [facility] left foot / [facility] M79.672(ICD-10) Hospital Repository 04/21/2017 Unknown R52 - Pain, Jwayyed, Active [facility] unspecified / [facility] R52(ICD-10) Hospital Repository 04/17/2017 Unknown Z01.810 - Encounter Monty, Red Active [facility] for preprocedural Community cardiovascular Hospital examination / Repository Z01.810(ICD-10) 04/17/2017 Unknown I10 - Essential Monty, [place] Active [facility] (primary) Community hypertension / Hospital I10(ICD-10) Repository 03/22/2017 Unknown I70.245 - Aurora Hdz A Active [facility] Atherosclerosis of [facility] [place] [facility] left leg with Repository ulceration of other part of foot / I70.245(ICD-10) 03/07/2017 Unknown J44.1 - Chronic Mayo, Mark Chi Active [facility] obstructive pulmonary Community disease with (acute) Hospital exacerbation / Repository J44.1(ICD-10) 03/07/2017 Unknown L97.522 - Mayo, Mark Chi Active [facility] Non-pressure chronic Community ulcer of other part Hospital of left foot with fat Repository layer exposed / L97.522(ICD-10) 03/07/2017 Unknown E87.1 - Mayo, Mark Chi Active [facility] Hypo-osmolality and Community hyponatremia / Hospital E87.1(ICD-10) Repository PROCEDURES PROCEDURES No Procedure Records FoundRESULTS RESULTS CNPTOUTREACH Observed: 02/18/2018 Status: COMPLETED Source: [place] 12:00 AM [facility] REPOSITORY Patient Outreach (FAMPST) TOSHA ALVARADO ([id number]) 1950 F CHT Date Time Provider Department 02/18/18 [facility] During your visit today, we recorded the following information about you: Allergies As of Date: 02/18/2018 Noted Allergy Reaction CYCLOBENZAPRINE 08/05/2016 11 - Vomiting DULOXETINE 12/24/2016 11 - Vomiting LORAZEPAM 12/24/2016 11 - Vomiting LYRICA (PREGABALIN) 04/29/2012 5 - Intolerance Comments: Foggy feeling PINEAPPLE 11/24/2013 4 - Hives Comments: Mouth breaks out, swelling SEASONAL ALLERGIES 05/17/2010 14 - Other: See Comments Comments: nasal congestion and eyes itch, water and burn SERTRALINE HCL 12/24/2016 1 - Mental Status Change Comments: makes me crazy SULFA (SULFONAMIDE ANTIBIOTICS) 10/16/2011 4 - Hives Date Reviewed: 12/02/2017 Reviewed by: Beverly Bateman LPN - Fully Assessed Visit Diagnosis:Medication management [Z79.899] Order(s):ALBUMIN/CREAT RATIO RND UR [SQUACR] Order #: [id number] FUTURE Prescriptions as of 02/18/2018 Sig: GABAPENTIN 800 MG TABLET Take 1 tablet by mouth three * COMPOUNDED PRESCRIPTION Slide board Dx: COMPOUNDED PRESCRIPTION Air mattress COMPOUNDED PRESCRIPTION ensure chocolate twice daily * IPRATROPIUM-ALBUTEROL 0.5 MG-* Inhale 3 mL as instructed fou* BUDESONIDE 0.5 MG/2 ML SUSPEN* Use 2 mL via nebulizer twice * MONTELUKAST 10 MG TABLET Take 1 tablet by mouth daily * CLOPIDOGREL 75 MG TABLET Take 1 tablet by mouth once d* PANTOPRAZOLE 40 MG TABLET,DEL* Take 1 tablet by mouth once d* XARELTO 20 MG TABLET Take 1 tablet by mouth once d* TRAZODONE 50 MG TABLET Take 1 tablet by mouth daily * PROMETHAZINE 25 MG TABLET TAKE (1) TABLET BY MOUTH EVER* ARGININE 7 GRAM-GLUTAMINE 7 G* Take 1.5 g by mouth twice yvan* FERROUS GLUCONATE 324 MG (37.* Take 1 tablet by mouth daily * METOPROLOL TARTRATE 50 MG TAB* Take 1 tablet by mouth three * SODIUM CHLORIDE 1 GRAM TABLET Take 1 tablet by mouth once d* LEVETIRACETAM 750 MG TABLET Take 1 tablet by mouth twice * ATORVASTATIN 20 MG TABLET ONDANSETRON 4 MG DISINTEGRATI* Take 1 tablet by mouth every * COMPOUNDED PRESCRIPTION Walker with wheels in the fro* ALBUTEROL SULFATE HFA 90 MCG/* Inhale 2 Puffs as instructed * COMPOUNDED PRESCRIPTION 1.Attends discreet underwear * COMPOUNDED PRESCRIPTION Mobile chair COMPOUNDED PRESCRIPTION Hospital bed No: 1 COMPOUNDED PRESCRIPTION Empi 4 Lead TENS Unit Dx: M5* COMPOUNDED PRESCRIPTION Shower bars: Re: gait inst* COMPOUNDED PRESCRIPTION PHYSICAL THERAPY for the back* BLOOD-GLUCOSE METER KIT 1 Each as needed. BLOOD SUGAR DIAGNOSTIC STRIPS Use as instructed LANCETS Use as instructed Problem List As Of Date 02/18/2018 Noted Resolved Low sodium levels [E87.1] INVALID FOR*02/22/2015 HTN (hypertension) [I10] INVALID FOR* More... Atrial fibrillation [I48.91] INVALID FOR* More... Syncope [R55] INVALID FOR*02/22/2015 Diarrhea [R19.7] INVALID FOR*02/22/2015 Nausea with vomiting [R11.2] INVALID FOR*02/22/2015 Acute gastritis without mention of hemorrhage [*INVALID FOR*02/22/2015 Sleeping difficulty [G47.9] INVALID FOR*02/22/2015 Depression [F32.9] INVALID FOR* More... Polyarthralgia [M25.50] INVALID FOR* Anxiety [F41.9] INVALID FOR* More... Renal artery stenosis [I70.1] INVALID FOR* More... 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 OA (osteoarthritis) of knee [M17.10] INVALID FOR* TIA (transient ischemic attack) [G45.9] INVALID FOR* Pelvis fracture (HCC) [S32.9XXA] INVALID FOR*02/22/2015 Unequal leg length (acquired) [M21.70] INVALID FOR* Osteoporosis [M81.0] INVALID FOR* More... Peripheral arterial disease [I73.9] INVALID FOR* More... Chronic mesenteric ischemia (HCC) [K55.1] INVALID FOR* More... Post-op pain [G89.18] INVALID FOR* More... Intravascular volume depletion [E86.1] INVALID FOR*03/08/2013 More... Nausea [R11.0] INVALID FOR*03/07/2013 More... Atelectasis [J98.11] INVALID FOR*03/24/2015 More... Difficult intravenous access [Z78.9] INVALID FOR* More... Volume overload [E87.70] INVALID FOR* More... Severe malnutrition (HCC) [E43] INVALID FOR* More... Hyponatremia [E87.1] INVALID FOR* More... Peripheral artery disease (HCC) [I73.9] INVALID FOR* More... Neurological complaint [R29.90] INVALID FOR* More... Critical lower limb ischemia [I99.8] INVALID FOR* More... DM (diabetes mellitus), type 2 with peripheral *INVALID FOR*10/02/2017 More... Hypotension, unspecified [I95.9] INVALID FOR*03/24/2015 More... Tobacco abuse disorder [Z72.0] INVALID FOR*08/25/2016 More... ASO (arteriosclerosis obliterans) [I70.90] INVALID FOR*03/23/2015 On mechanically assisted ventilation (HCC) [Z99*INVALID FOR*03/24/2015 More... CAD (coronary artery disease) [I25.10] INVALID FOR* More... Postoperative infection [T81.40XA] INVALID FOR*07/24/2016 More... Ischemia of foot [I99.8] INVALID FOR* Seizures (HCC) [R56.9] INVALID FOR* Dizziness [R42] INVALID FOR* Confusion [R41.0] INVALID FOR* SIADH (syndrome of inappropriate ADH production*INVALID FOR* More... 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 SBO (small bowel obstruction) (HCC) [K56.609] INVALID FOR* Severe protein-calorie malnutrition (HCC) [E43] INVALID FOR* S/P femoral-tibial bypass [Z98.890] INVALID FOR* History of left above knee amputation (HCC) [Z8*INVALID FOR* Encounter Status:Closed by EPIC, PRODUSER on 03/05/18 CTA ABD W/RUNOFF W/WO Observed: 01/24/2018 Status: F Source: [place] CONTRAST 8:19 AM [facility] REPOSITORY [facility] Imaging Services [address] [place] [address] CTA Abd w/Runoff W/WO Contrast MR#: [id number] Acct: [id number] Name: TOSHA ALVARADO Rep #: [id number] : 1950 F 67 From: Mal Cee MD PCP: Paulette Malloy MD Status: REG CLI Study: CTA Abd w/Runoff W/WO Contrast Date of Exam: 01/24/18 Exam# [id number] Ordering Dr: Aurora Hdz MD STUDY: CTA OF THE ABDOMINAL AORTA AND BILATERAL LOWER EXTREMITIES REASON FOR EXAM: Female, 67 years old. Left above knee amputation, vascular graft RADIATION DOSAGE (If Supplied By Facility): CTDIvol = ( 8.10 ) mGy, DLP = ( 1208.96 ) mGycm TECHNIQUE: Axial CT angiography multi-detector data acquisition was obtained from the lung bases to the right foot following intravenous administration of 75mL ml of Isovue 370 contrast. Axial images and MIP images were reconstructed from the axial data set. Post-processing of the angiographic images was performed, with multiplanar reformation and 3D reconstruction. Individualized dose optimization techniques were used for this CT. TECHNICAL QUALITY: Fair COMPARISON: 03/22/2017 Descriptors of Narrowing: None (0%) Mild (< 50%) Moderate (50-70%) Severe (70-90%) Subtotal/Total Occlusion (90-100%) Non-Evaluable (technically non-diagnostic FINDINGS: Abdominal aorta: There is a jump graft from the celiac axis to the superior mesenteric artery with occluded proximal superior mesenteric artery stent noted, stable. Atherosclerosis of the abdominal aorta but no evidence of aneurysm. Inferior mesenteric artery: Appears to be patent at its origin. Right renal artery(arteries): There are 2 right renal arteries with generally small caliber. Severe stenosis at the origin of the dominant artery evident on image 23 of series 2. Right renal atrophy may be related to arterial stenosis. Left renal artery(arteries): Single left renal artery with stent at its origin with at least mild degree of stenosis but overall similar since the prior study. Right common iliac artery: Patent stent with minimal intimal hyperplasia. Right external iliac artery: Patent stent with mild to moderate intimal thickening resulting in up to moderate stenosis in the proximal portion. Right internal iliac artery: There is moderate diffuse narrowing. Left common iliac artery: Stent with mild degree of intimal hyperplasia but no hemodynamically significant stenosis. Left external iliac artery: Stent with mild degree of intimal hyperplasia but no hemodynamically significant stenosis. Left internal iliac artery: There is moderate diffuse narrowing. RIGHT LOWER EXTREMITY Right common femoral artery: There are surgical clips in the region of the right groin. The right common femoral artery is moderately narrowed shortly after the right external iliac artery stent, stable since the prior study. Right profundus femoris: Dominant supply of the right lower extremity without a visible hemodynamically significant stenosis. Right superficial femoral: Occluded from the femoral artery bifurcation extending just beyond the abductor canal, stable. Right popliteal artery: There is moderate stenosis of the popliteal artery in the proximal popliteal segment, stable since the prior study. The mid and distal popliteal artery is obscured by spray artifact. Right tibioperoneal trunk: Obscured Right anterior tibial artery: There is moderate diffuse narrowing, with visualization of the vessel to the anterior foot. Right posterior tibial artery: There is moderate diffuse narrowing, with visualization of the vessel to the ankle. Right peroneal artery: There is mild diffuse narrowing, with visualization of the vessel to the distal calf. LEFT LOWER EXTREMITY Left common femoral artery: Aneurysmal enlargement shortly after the external iliac artery stent but stable since the prior study. Surgical [place] noted adjacent. Left profundus femoris: Dominant supply of the remaining left lower extremity without hemodynamically significant stenosis. Left superficial femoral: Occluded, stable Above-knee amputation noted since prior study. Similar mild fibrotic changes of the lung bases. The liver, spleen and pancreas are unremarkable. Gallstone is noted. The adrenal glands are not focally enlarged. Right renal atrophy is similar since the prior study likely related to renal artery stenosis (small right renal artery is diffusely with severe stenosis of the dominant artery). No small bowel or large bowel wall thickening. No pelvic free fluid. Uterus appears to be surgically absent. Appendix is not seen. Mild levoscoliosis. There are injection granulomata in each buttock. CT/CTA Abd w/Runoff W/WO Contrast IMPRESSION: 1. Interval left above knee amputation. 2. Stable bilateral superficial femoral artery occlusion. 3. Bilateral common/external iliac artery stents similar since the prior study. Moderate stenosis of the distal right external iliac artery due to intimal hyperplasia. 4. Moderate stenosis of the RIGHT common femoral artery, shortly on external iliac artery stent. Stable. 5. Moderate multifocal right infrapopliteal artery stenosis but three-vessel runoff to the ankle noted. 6. Celiac-superior mesenteric artery surgical bypass. Occluded SMA origin stent. Stable. 7. Right renal atrophy. Severe stenosis of dominant right renal artery, stable. 8. Left renal artery stent, patent, stable. Electronically Signed: Mal Cee MD at 18:24 EST , Service support , CC: Aurora Hdz MD; Paulette Malloy MD Anthropometrist: Signed EMERGENCY DEPARTMENT Observed: 12/26/2017 Status: F Source: [place] SUMMARY 11:59 PM [facility] REPOSITORY [facility] Medical Records Department [address] [place] [address] Emergency Department Summary 12/26/17 1751 MR#: [id number] Acct: [id number] Name: TOSHA ALVARADO Rep #: [id number] : 1950 67 From: Abdiel Dudley MD PCP: Paulette Malloy MD Status: DEP ER - ER Visit Summary Date of Service: 12/26/17 Chief Complaint: Headache History of Present Illness: The patient is a [address] Malloy and Dr. Millan. She reports that she has a headache that began 2 days ago. Is been intermittent over that timeframe. Is gotten much worse today. States that the stabbing frontal pain that is similar to prior headaches. 10 at 10 severity. Is worsened by light for reading. She taken Tylenol without relief. She reports she has had nausea, but no vomiting. She denies any recent injury to her head. She reports that her blood pressure is usually in the 120s systolic. She is currently on metoprolol 50 mg twice daily and reports that she took her last dose at 6 AM. On review of systems patient reports she has had a cough for the past 1-2 months that is nonproductive. She does report that she is short of breath. However, this is resolved with her nebulizer. She denies any fever, chills, or other complaints. Physical Examination: Vitals: 98.1, 165/125, 111, 18, 94% on 3 L nasal cannula which is her home O2. General: Well-nourished and well-developed. Head: Normocephalic atraumatic. Neck: Supple, no lymphadenopathy. No JVD. Nontender. Cardiovascular: Regular rate and rhythm. No murmurs. Respiratory: No respiratory distress. Mild wheezing bilaterally with good air movement. Abdominal: Soft, nontender, nondistended, normal bowel sounds. No guarding, rebound, or peritoneal signs. Back: Nontender. Extremities: Nontender, no edema. Skin: Normal color, no rash. Neurologic: Alert and oriented 3. Cranial nerves II through XII are intact. Normal strength and sensation. Psych: Normal affect. Test Results: CBC is remarkable for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 19-41 % Normal LY% 24.4 LAB L100.2300 0-10 % High MONO% 14.8 LAB L100.2400 0-5 % Normal EO% 4.0 LAB L100.2500 0-1 % Normal BASO% 0.2 LAB L100.2550 0.0-0.9 % Normal IM GRAN % 0.200 Result Comment: IG% - Immature Granulocytes (promyelocytes, myelocytes and metamyelocytes) > 1% indicates that a LEFT SHIFT is Present. LAB L100.2620 2.0-7.7 X10 3/uL Normal Absolute Neut 2.7 LAB L100.2720 0.83-4.51 X10 3/ul Normal Absolute Lymph 1.17 Performed By: #### L100.0100 #### [facility] [address] [place], [address] HH, HEMOGLOBIN AND Collected: 09/21/2017 Status: F Source: [place] HEMATOCRIT 7:20 AM [facility] REPOSITORY TYPE CODE TESTS RESULT OUT OF RANGE REFERENCE UNITS LAB L100.1300 12.0-15.0 g/dl Low HGB 9.2 LAB L100.1400 37-47 % Low HCT 29.5 Performed By: #### L100.0600 #### [facility] [address] [place], [address] PROGRESS Observed: 09/20/2017 Status: COMPLETED Source: [place] 5:13 PM [facility] REPOSITORY HNO ID: [id number] Author: Soha Caraballo Service: (none) Author Type: Registered Nurse Type: Progress Notes Filed: 09/20/2017 5:16 PM Note Text: TRANSITION CARE MANAGEMENT (TCM) FOLLOW-UP NOTE Provider Action/FYI Pt being D/C from [facility] TCU S/P L BKA. Will have HH/PT/OT, etc. Not sure if she has AAA aide but will pursue questioning that when I call her. Patient identified by name and date of : YES Spoke to Lorraine at [facility] Summary: Pt being D/C from TCU to home after L BKA and rehab stint. She will be getting PT/OT/Nsg Concerns: This will be difficult adjustment for pt but hopefully much less pain. Casting Carrier plan for next outreach: Will follow up Sat or Mon Signature Soha Caraballo head of mobile Light Rail Vehicle Operator Internal Medicine [facility] September 20, 2017 DISCHARGE INSTRUCTION Observed: 09/20/2017 Status: F Source: [place] 3:15 PM [facility] REPOSITORY [facility] Medical Records Department [address] [place] [address] Instructions for Home/Discharge Instructions 09/17/172042 MR#: [id number] Acct: [id number] Name: TOSHA ALVARADO Rep #: [id number] : 1950 67 From: Mark Huber MD PCP: Paulette Malloy MD Status: ADM IN ADDENDUM by Mark Huber MD on 09/20/17 at 1515 Discharge 09/23/2017. Date Mark Huber MD cc: Paulette Malloy MD; Trevor Mills DO * Signed - Discharge Diagnoses Current Active Problems: Current Active and Chronic Problems (Last Reviewed 04/17/17 @ 14:47 by Red Millan MD) Foot ulcer, left (Chronic) Diabetes mellitus (Chronic) Tobacco abuse (Chronic) Neuropathic pain (Chronic) Seizure disorder (Chronic) You will use the following diet at home:: No restrictions, Regular Your food should be the consistency of: Regular Your liquids should be the consistency of: Regular/Thin Discharge Activity: Return to Normal Activity, May Shower, Use Walker Weight Bearing Status: Weight bearing as tolerated Call your doctor if you observe: Fever of 101 or Higher, Inability to urinate, Inability to have a bowel movement, Shortness of breath, Chest pain, Uncontrolled pain Allergies/Adverse Reactions: Allergies levofloxacin [From Levaquin] Allergy (Verified 08/21/17 15:01) Other Red streak up her arm and itiching pregabalin [From Lyrica] Allergy (Verified 08/28/17 09:34) Other Sulfa (Sulfonamide Antibiotics) Allergy (Verified 08/21/17 15:01) Anaphylaxis duloxetine [From Cymbalta] Adverse Reaction (Verified 08/21/17 15:01) Vomiting sertraline HCl [From Zoloft] Adverse Reaction (Verified 08/21/17 15:01) MAKES ME CRAZY makes me crazy Medications to take at Discharge Linacolotide [Linzess] 145 mcg PO DAILY 04/04/17 Metoprolol Tartrate [Lopressor (beta lorie)] 50 mg PO TID 04/04/17 traZODone [Desyrel] 50 mg PO QHS 04/04/17 Albuterol Aerosols [Ventolin Aerosols] 2.5 mg INHALATION Q4H PRN PRN 04/05/17 Albuterol IH (ProAir) [Proair Hfa] 2 puff INHALATION Q6H PRN PRN 04/05/17 Gabapentin [Neurontin] 600 mg PO TIDCM 04/05/17 Ipratropium/Albuterol Sulfate [Duoneb] 3 ml INHALATION Q6HWA.RT 04/05/17 Sodium Chloride 1 gm PO DAILY 04/05/17 Clopidogrel Bisulfate [Plavix] 75 mg PO DAILY 07/13/17 Rivaroxaban [Xarelto] 20 mg PO DAILY 07/13/17 Atorvastatin Calcium [Lipitor] 20 mg PO QDAY 08/21/17 Budesonide Aerosol [Pulmicort Respules] 0.5 mg INHALATION BID 08/21/17 Ferrous Gluconate 324 mg PO DAILY 08/29/17 Acetaminophen [Tylenol] 1,000 mg PO Q8 08/31/17 Multivitamins,Ther W-Minerals [Multivitamin With Minerals] 1 tablet PO DAILYCM 08/31/17 Escitalopram Oxalate [Lexapro] 10 mg PO DAILY@0800 #30 tab 09/17/17 Lidocaine [Lidoderm Patch] 1 patch TOPICAL DAILY #30 patch 09/17/17 Lorazepam [Ativan] 0.5 mg PO Q6H PRN PRN #30 tab 09/17/17 Nutritional Supplement [Malik - ORANGE FLAVOR] 1 packet PO BIDCM #60 packet 09/17/17 Oxycodone [Oxyir] 5 - 10 mg PO Q4H PRN PRN 7 Days #60 tab 09/17/17 Pantoprazole Sodium 40 mg PO DAILY #30 tablet. 09/17/17 hydrALAZINE [Apresoline] 25 mg PO Q8 PRN #90 tab 09/17/17 proMETHazine tablet [Phenergan tablet] 25 mg PO Q6H PRN PRN tablet 09/17/17 The following prescriptions were given: Oxycodone [Oxyir] 5 - 10 mg PO Q4H PRN PRN 7 Days #60 tab PRN Reason: Pain Lorazepam [Ativan] 0.5 mg PO Q6H PRN PRN #30 tab PRN Reason: ANXIETY Escitalopram Oxalate [Lexapro] 10 mg PO DAILY@0800 #30 tab hydrALAZINE [Apresoline] 25 mg PO Q8 PRN #90 tab PRN Reason: SBP >160 Lidocaine [Lidoderm Patch] 1 patch TOPICAL DAILY #30 patch Pantoprazole Sodium 40 mg PO DAILY #30 tablet. Nutritional Supplement [Malik - ORANGE FLAVOR] 1 packet PO BIDCM #60 packet Primary Care Physician: Paulette Malloy MD [Primary Care Provider] - Please follow up with your Primary Care Physician in: 1 week. Test Results: Test results from this visit will be discussed in further detail at your follow-up appointment, if applicable. Please Follow Up With: Gopal Hernandez MD When: 2 weeks. Proposed Discharge Date: 09/20/17 09/17/172044 <Electronically signed by Mark Huber MD> Date Mark Huber MD CC: Paulette Malloy MD; Trevor Mills DO DISCHARGE SUMMARY Observed: 09/20/2017 Status: F Source: [place] 3:15 PM [facility] REPOSITORY [facility] Medical Records Department [address] [place] [address] Discharge Summary 09/17/172044 MR#: [id number] Acct: [id number] Name: TOSHA ALVARADO Rep #: [id number] : 1950 67 From: Mark Huber MD PCP: Paulette Malloy MD Status: ADM IN Location: [place] [id number] ADDENDUM by Mark Huber MD on 09/20/17 at 1515 Code Visit Discharge 09/23/2017. 09/20/17 1515 <Electronically signed by Mark Huber MD> Date Mark Huber MD cc: Paulette Malloy MD; Mark Huber MD * Signed Discharge Date and Diagnosis Date of Admission: 08/31/17 Date of Discharge: 09/20/17 - Secondary Discharge Diagnosis Chronic Problems (Last Reviewed 04/17/17 @ 14:47 by Red Millan MD) Foot ulcer, left (Chronic) Diabetes mellitus (Chronic) Tobacco abuse (Chronic) Neuropathic pain (Chronic) Seizure disorder (Chronic) Atherosclerosis of [place] artery of left lower extremity (Chronic) Chronic ulcer of left foot with fat layer exposed (Chronic) Insomnia (Chronic) Neuropathic pain (Chronic) Hyperlipidemia (Chronic) Peripheral arterial occlusive disease (Chronic) Type 2 diabetes mellitus with diabetic polyneuropathy (Chronic) Hammer toe of left foot (Chronic) Other specified peripheral vascular diseases (Chronic) Chronic anticoagulation (Chronic) Osteoporosis (Chronic) Acute on chronic congestive heart failure (Chronic) Cerebrovascular disease (Chronic) Status post acute ischemic stroke no residual deficit Moderate carotid disease Bilateral carotid endarterectomy Hypertension (Chronic) COPD (chronic obstructive pulmonary disease) (Chronic) Tobacco user (Chronic) Hospital Course and Treatment Imaging Results: 09/17/17 00:00 NPO [Diet: Nothing Per Oral] Type of Dietary Supplement:: Ensure Complete Is pt able to select menu?: Yes Clinical Impression(s) from Imaging Studies Hip/Pelvis X-Ray 09/15/17 14:20 Operations: None Procedures: None Summary of Care Provided: The patient is a 67 year old Female with below past medical history hospitalized for left above knee amputation 08/28/[address] Hernandez, admitted to TCU with debility, here or rehabilitation, strengthening, prior to discharge home with family. Discharge home with brother, and Home Health Services. Discharge Diet: No Restrictions Discharge Activity: Return to Normal Activity, May Shower, Use Walker Weight Bearing Status: Weight bearing as tolerated Call your doctor if you observe: Fever of 101 or Higher, Inability to urinate, Inability to have a bowel movement, Shortness of breath, Chest pain, Uncontrolled pain Home Medications: Medications to take at Discharge Linacolotide [Linzess] 145 mcg PO DAILY 04/04/17 Metoprolol Tartrate [Lopressor (beta lorie)] 50 mg PO TID 04/04/17 traZODone [Desyrel] 50 mg PO QHS 04/04/17 Albuterol Aerosols [Ventolin Aerosols] 2.5 mg INHALATION Q4H PRN PRN 04/05/17 Albuterol IH (ProAir) [Proair Hfa] 2 puff INHALATION Q6H PRN PRN 04/05/17 Gabapentin [Neurontin] 600 mg PO TIDCM 04/05/17 Ipratropium/Albuterol Sulfate [Duoneb] 3 ml INHALATION Q6HWA.RT 04/05/17 Sodium Chloride 1 gm PO DAILY 04/05/17 Clopidogrel Bisulfate [Plavix] 75 mg PO DAILY 07/13/17 Rivaroxaban [Xarelto] 20 mg PO DAILY 07/13/17 Atorvastatin Calcium [Lipitor] 20 mg PO QDAY 08/21/17 Budesonide Aerosol [Pulmicort Respules] 0.5 mg INHALATION BID 08/21/17 Ferrous Gluconate 324 mg PO DAILY 08/29/17 Acetaminophen [Tylenol] 1,000 mg PO Q8 08/31/17 Multivitamins,Ther W-Minerals [Multivitamin With Minerals] 1 tablet PO DAILYCM 08/31/17 Escitalopram Oxalate [Lexapro] 10 mg PO DAILY@0800 #30 tab 09/17/17 Lidocaine [Lidoderm Patch] 1 patch TOPICAL DAILY #30 patch 09/17/17 Lorazepam [Ativan] 0.5 mg PO Q6H PRN PRN #30 tab 09/17/17 Nutritional Supplement [Malik - ORANGE FLAVOR] 1 packet PO BIDCM #60 packet 09/17/17 Oxycodone [Oxyir] 5 - 10 mg PO Q4H PRN PRN 7 Days #60 tab 09/17/17 Pantoprazole Sodium 40 mg PO DAILY #30 tablet. 09/17/17 hydrALAZINE [Apresoline] 25 mg PO Q8 PRN #90 tab 09/17/17 proMETHazine tablet [Phenergan tablet] 25 mg PO Q6H PRN PRN tablet 09/17/17 Following Prescrptions Were Given to Patient: Oxycodone [Oxyir] 5 - 10 mg PO Q4H PRN PRN 7 Days #60 tab PRN Reason: Pain Lorazepam [Ativan] 0.5 mg PO Q6H PRN PRN #30 tab PRN Reason: ANXIETY Escitalopram Oxalate [Lexapro] 10 mg PO DAILY@0800 #30 tab hydrALAZINE [Apresoline] 25 mg PO Q8 PRN #90 tab PRN Reason: SBP >160 Lidocaine [Lidoderm Patch] 1 patch TOPICAL DAILY #30 patch Pantoprazole Sodium 40 mg PO DAILY #30 tablet. Nutritional Supplement [Malik - ORANGE FLAVOR] 1 packet PO BIDCM #60 packet Primary Care Physician: Paulette Malloy MD [Primary Care Provider] - Please follow up with your Primary Care Physician in: 1 week. Please Follow Up With: Gopal Hernandez MD When: 2 weeks. Disposition: Home with Home Health Minutes spent on discharge:: 35 Patient Condition:: Stable Medical Necessity - Tobacco Use Smoking Status: Current some day smoker Tobacco Use: Cigarettes Meaningful Use Info Meaningful Use Diagnoses (Choose all that apply): None applicable 09/17/172046 <Electronically signed by Mark Huber MD> Date Mark Huber MD Cosigner Signature (if applicable): Date CC: Paulette Malloy MD; Mark Huber MD Signed HOME HEALTH PROGRESS Observed: 09/20/2017 Status: F Source: [place] NOTE 3:15 PM [facility] REPOSITORY [facility] Medical Records Department [address] [place] [address] Home Health Progress Note [id number] Encounter Encounter Date: 09/17/172046 MR#: [id number] Acct: [id number] Name: TOSHA ALVARADO Rep #: [id number] : 1950 67 From: Mark Huber MD PCP: Paulette Malloy MD Status: ADM IN Location: [place] [address] ADDENDUM by Mark Huber MD on 09/20/17 at 1515 Discharge 09/23/2017. 09/20/17 1515 <Electronically signed by Mark Huber MD> Date Mark Huber MD cc: * Signed Home Health Note - Plan Overview of reason of hospitalization: The patient is a 67 year old Female with below past medical history hospitalized for left above knee amputation 08/28/[address] Hernandez, admitted to [facility] with debility, here or rehabilitation, strengthening, prior to discharge home with family. Discharge home with brother, and Home Health Services. Problems: Patient was seen for (Last Reviewed 04/17/17 @ 14:47 by Red Millan MD) Foot ulcer, left (Chronic) Diabetes mellitus (Chronic) Tobacco abuse (Chronic) Neuropathic pain (Chronic) Seizure disorder (Chronic) Complete List of Medical Problems (Last Reviewed 04/17/17 @ 14:47 by Red Millan MD) Foot ulcer, left (Chronic) Diabetes mellitus (Chronic) Tobacco abuse (Chronic) Neuropathic pain (Chronic) Seizure disorder (Chronic) Atherosclerosis of [place] artery of left lower extremity (Chronic) Chronic ulcer of left foot with fat layer exposed (Chronic) Insomnia (Chronic) Neuropathic pain (Chronic) Hyperlipidemia (Chronic) Peripheral arterial occlusive disease (Chronic) Shortness of breath (Acute) Type 2 diabetes mellitus with diabetic polyneuropathy (Chronic) Hammer toe of left foot (Chronic) Other specified peripheral vascular diseases (Chronic) Fracture of fifth toe, left, closed (Acute) Abdominal pain (Acute) Chronic anticoagulation (Chronic) Chronic hypoxemic respiratory failure (Acute) Osteoporosis (Chronic) Vertebral compression fracture (Acute) Acute on chronic congestive heart failure (Chronic) Cerebrovascular disease (Chronic) Hypertension (Chronic) COPD (chronic obstructive pulmonary disease) (Chronic) Tobacco user (Chronic) - Requirements and Reasons Disciplines Needed/Ordered: Correction, Physical Therapy Reason for Disciplines: Medication Management/Knowledge Deficit, Wound Care, Gait Training, Stair Training, Fall Prevention, Home Safety/Equipment Instruction, Balance and/or Posture Training, Transfer Training Related To: Limited/Poor Endurance, Shortness of Breath with Activity, Physical Impairments, Unsteady Gait/Balance, Fall Risk Patient is unable to leave the home: Without Aid of Supportive Devices (crutches, cane, wheelchair, walker), Without the assistance of another person - Additional Disciplines Additional Disciplines Needed/Ordered: Occupational Therapy 09/17/172047 <Electronically signed by Mark Huber MD> Date Mark Huber MD Cosigner Signature (if indicated): Date CC: Signed TYPE AND SCREEN Collected: 09/20/2017 Status: P Source: [place] 6:40 AM [facility] REPOSITORY Order Comment: CMV NEG? N Number of units to transfuse: 2 Comments: above the knee amputation Is there a >20% drop in pt's BP? Y Is the pt's CVP (central venous pressure) <3 cm/H2O? N Is the EBL >/= 1000ml in adults or >/= 12ml/kg in children? Y Is there an orthostatic change in pt's BP(SBP drop >10mmHg)? Y Is pt's HR > 100 bpm? N Reason for Ordering Blood: Acute Are the blood/blood products to be transfused? Y Is the patient having/had surgery? Y CALLED FLOOR ASK MALLIKA IF OKAY TO COME AND DRAW NOW SHE SAID YES. CMV NEG?* N Give When? When Ready Irradiated? N Leukodepleted? Y Reason for Type AND Screen/Red Cells: [place]EMIA Surgery Date: 08/28/17 Other - use comments: UNK Type of Surgery: OTHER TYPE CODE TESTS RESULT OUT OF RANGE REFERENCE UNITS LAB B10.0800 A Normal BLOOD TYPE GEL POSITIVE LAB B100.4000 Normal Antibody NEGATIVE Screen Performed By: #### B101.7450 #### [facility] [place] [address], [address] TYPE AND SCREEN Collected: 09/20/2017 Status: F Source: [place] 6:40 AM [facility] REPOSITORY Order Comment: CMV NEG? N Number of units to transfuse: 2 Comments: above the knee amputation Is there a >20% drop in pt's BP? Y Is the pt's CVP (central venous pressure) <3 cm/H2O? N Is the EBL >/= 1000ml in adults or >/= 12ml/kg in children? Y Is there an orthostatic change in pt's BP(SBP drop >10mmHg)? Y Is pt's HR > 100 bpm? N Reason for Ordering Blood: Acute Are the blood/blood products to be transfused? Y Is the patient having/had surgery? Y CALLED FLOOR ASK MALLIKA IF OKAY TO COME AND DRAW NOW SHE SAID YES. CMV NEG?* N Give When? When Ready Irradiated? N Leukodepleted? Y Reason for Type AND Screen/Red Cells: ANEMIA Surgery Date: 08/28/17 Other - use comments: UNK Type of Surgery: OTHER TYPE CODE TESTS RESULT OUT OF RANGE REFERENCE UNITS LAB B10.0800 A Normal BLOOD TYPE GEL POSITIVE LAB B100.4000 Normal Antibody NEGATIVE Screen Performed By: #### B101.7450 #### [facility] [place], [address] Collected: 09/20/2017 Status: F Source: [place] 6:40 AM [facility] REPOSITORY TYPE CODE TESTS RESULT OUT OF REFERENCE UNITS RANGE LAB U100.0000 [id number] TRANSFUSED PRODUCT: T AND S with Crossmatch, Red Cells COUNT: 2 Performed By: #### U100.0000 #### [facility] - refer to report for specific site CNPTOUTREACH Observed: 09/20/2017 Status: COMPLETED Source: [place] 12:00 AM [facility] REPOSITORY Patient Outreach (INTMWS) TOSHA ALVARADO ([id number]) 1950 F CHT Date Time Provider Department 09/20/17 SOHA VU INTChepeWS During your visit today, we recorded the following information about you: Soha Gordon RN 09/20/2017 5:16 PM Signed TRANSITION CARE MANAGEMENT (TCM) FOLLOW-UP NOTE Provider Action/FYI Pt being D/C from [facility] TCU S/P L BKA. Will have HH/PT/OT, etc. Not sure if she has AAA aide but will pursue questioning that when I call her. Patient identified by name and date of : YES Spoke to Lorraine at [facility] HH Summary: Pt being D/C from TCU to home after L BKA and rehab stint. She will be getting PT/OT/Nsg Concerns: This will be difficult adjustment for pt but hopefully much less pain. Casting Carrier plan for next outreach: Will follow up Sat or Mon Signature Soha Caraballo RN Ambulatory Light Rail Vehicle Operator Internal Medicine [facility] September 20, 2017 Allergies As of Date: 09/20/2017 Noted Allergy Reaction CYCLOBENZAPRINE 08/05/2016 11 - Vomiting DULOXETINE 12/24/2016 11 - Vomiting LORAZEPAM 12/24/2016 11 - Vomiting LYRICA (PREGABALIN) 04/29/2012 5 - Intolerance Comments: Foggy feeling PINEAPPLE 11/24/2013 4 - Hives Comments: Mouth breaks out, swelling SEASONAL ALLERGIES 05/17/2010 14 - Other: See Comments Comments: nasal congestion and eyes itch, water and burn SERTRALINE HCL 12/24/2016 1 - Mental Status Change Comments: makes me crazy SULFA (SULFONAMIDE ANTIBIOTICS) 10/16/2011 4 - Hives Date Reviewed: 06/29/2017 Reviewed by: Margot Ji Resolution Analyst - Fully Assessed 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 [2612] Prescriptions as of 09/20/2017 Sig: FERROUS GLUCONATE 324 MG (37.* Take 1 tablet by mouth daily * TRAZODONE 50 MG TABLET Take 1 tablet by mouth daily * METOPROLOL TARTRATE 50 MG TAB* Take 1 tablet by mouth three * SODIUM CHLORIDE 1 GRAM TABLET Take 1 tablet by mouth once d* PROMETHAZINE 25 MG TABLET TAKE (1) TABLET BY MOUTH EVER* LEVETIRACETAM 750 MG TABLET Take 1 tablet by mouth twice * IPRATROPIUM-ALBUTEROL 0.5 MG-* Inhale 3 mL as instructed fou* XARELTO 20 MG TABLET Take 20 mg by mouth once ghada* LINACLOTIDE 290 MCG CAPSULE Take 1 capsule by mouth once * PANTOPRAZOLE 40 MG TABLET,DEL* Take 1 tablet by mouth once d* ATORVASTATIN 20 MG TABLET CLOPIDOGREL 75 MG TABLET ONDANSETRON 4 MG DISINTEGRATI* Take 1 tablet by mouth every * COMPOUNDED PRESCRIPTION Walker with wheels in the fro* COMPOUNDED PRESCRIPTION Ensure Clear. 237 ml twice d* COMPOUNDED PRESCRIPTION ensure chocolate twice daily * ALBUTEROL SULFATE HFA 90 MCG/* Inhale 2 Puffs as instructed * COMPOUNDED PRESCRIPTION 1.Attends discreet underwear * FOOD SUPPLEMENT, LACTOSE-REDU* Take 237 mL by mouth twice da* BUDESONIDE 0.5 MG/2 ML SUSPEN* Use 2 mL via nebulizer twice * COMPOUNDED PRESCRIPTION Mobile chair COMPOUNDED PRESCRIPTION Hospital bed No: 1 COMPOUNDED PRESCRIPTION Empi 4 Lead TENS Unit Dx: M5* COMPOUNDED PRESCRIPTION Shower bars: Re: gait inst* COMPOUNDED PRESCRIPTION PHYSICAL THERAPY for the back* BLOOD-GLUCOSE METER KIT 1 Each as needed. BLOOD SUGAR DIAGNOSTIC STRIPS Use as instructed LANCETS Use as instructed Problem List As Of Date 09/20/2017 Noted Resolved Low sodium levels [E87.1] INVALID FOR*02/22/2015 HTN (hypertension) [I10] INVALID FOR* Priority: C More... Atrial fibrillation [I48.91] INVALID FOR* Priority: C More... Syncope [R55] INVALID FOR*02/22/2015 Diarrhea [R19.7] INVALID FOR*02/22/2015 Nausea with vomiting [R11.2] INVALID FOR*02/22/2015 Acute gastritis without mention of hemorrhage [*INVALID FOR*02/22/2015 Sleeping difficulty [G47.9] INVALID FOR*02/22/2015 Depression [F32.9] INVALID FOR* More... Polyarthralgia [M25.50] INVALID FOR* Anxiety [F41.9] INVALID FOR* More... Renal artery stenosis [I70.1] INVALID FOR* More... End stage COPD (HCC) [J44.9] Priority: B More... OA (osteoarthritis) of knee [M17.10] INVALID FOR* TIA (transient ischemic attack) [G45.9] INVALID FOR* Pelvis fracture (HCC) [S32.9XXA] INVALID FOR*02/22/2015 Unequal leg length (acquired) [M21.70] INVALID FOR* Osteoporosis [M81.0] INVALID FOR* More... Peripheral arterial disease [I73.9] INVALID FOR* Priority: B More... Chronic mesenteric ischemia (HCC) [K55.1] INVALID FOR* Priority: A More... Post-op pain [G89.18] INVALID FOR* Priority: D More... Intravascular volume depletion [E86.1] INVALID FOR*03/08/2013 Priority: F More... Nausea [R11.0] INVALID FOR*03/07/2013 Priority: G More... Atelectasis [J98.11] INVALID FOR*03/24/2015 Priority: D More... Difficult intravenous access [Z78.9] INVALID FOR* Priority: D More... Volume overload [E87.70] INVALID FOR* Priority: F More... Severe malnutrition (HCC) [E43] INVALID FOR* Priority: B More... Hyponatremia [E87.1] INVALID FOR* Priority: B More... Peripheral artery disease (HCC) [I73.9] INVALID FOR* Priority: A More... Neurological complaint [R29.90] INVALID FOR* More... Critical lower limb ischemia [I99.8] INVALID FOR* More... DM (diabetes mellitus), type 2 with peripheral *INVALID FOR* Priority: E More... Hypotension, unspecified [I95.9] INVALID FOR*03/24/2015 Priority: D More... Tobacco abuse disorder [Z72.0] INVALID FOR*08/25/2016 Priority: B More... ASO (arteriosclerosis obliterans) [I70.90] INVALID FOR*03/23/2015 On mechanically assisted ventilation (HCC) [Z99*INVALID FOR*03/24/2015 More... CAD (coronary artery disease) [I25.10] INVALID FOR* Priority: C More... Postoperative infection [T81.4XXA] INVALID FOR*07/24/2016 Priority: A More... Ischemia of foot [I99.8] INVALID FOR* Seizures (HCC) [R56.9] INVALID FOR* Dizziness [R42] INVALID FOR* Confusion [R41.0] INVALID FOR* SIADH (syndrome of inappropriate ADH production*INVALID FOR* More... 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 SBO (small bowel obstruction) ([facility]) [K56.609] INVALID FOR* Severe protein-calorie malnutrition (HCC) [E43] INVALID FOR* S/P femoral-tibial bypass [Z98.890] INVALID FOR* Encounter Status:Closed by SOHA CARABALLO on 09/20/17 CBC W/DIFF, AUTOMATED Collected: 09/19/2017 Status: F Source: [place] 5:34 PM [facility] REPOSITORY TYPE CODE TESTS RESULT OUT OF RANGE REFERENCE UNITS LAB L100.1000 4.4-11.0 K/mm3 Low WBC 4.2 LAB L100.1200 4.2-5.4 M/mm3 Low RBC 2.38 LAB L100.1300 12.0-15.0 g/dl Low HGB 7.0 LAB L100.1400 37-47 % Low HCT 23.1 LAB L100.1500 81-99 fL Normal MCV 97.1 LAB L100.1600 27.0-32.0 pg Normal MCH 29.4 LAB L100.1700 32-36 g/gl Low MCHC 30.3 LAB L100.1810 11.6-14.6 % High RDW CV 15.6 LAB L100.1820 35.1-43.9 fl High RDW SD 52.1 LAB L100.1900 150-450 K/mm3 Normal PLT 256 LAB L100.2000 6.2-12.0 fl Normal MPV 8.9 LAB L100.2100 47-70 % Normal NEUT% 58.7 LAB L100.2200 19-41 % Normal LY% 23.1 LAB L100.2300 0-10 % High MONO% 14.4 LAB L100.2400 0-5 % Normal EO% 3.4 LAB L100.2500 0-1 % Normal BASO% 0.2 LAB L100.2550 0.0-0.9 % Normal IM GRAN % 0.200 Result Comment: IG% - Immature Granulocytes (promyelocytes, myelocytes and metamyelocytes) > 1% indicates that a LEFT SHIFT is Present. LAB L100.2620 2.0-7.7 X10 3/uL Normal Absolute Neut 2.4 LAB L100.2720 0.83-4.51 X10 3/ul Normal Absolute Lymph 0.96 Performed By: #### L100.0100 #### [facility] [address] [place], [address] CONSULTATION Observed: 09/18/2017 Status: F Source: CARLO[place] 6:40 AM [facility] REPOSITORY [facility] Medical Records Department [address] [place] [address] Consultation 09/18/17 0636 MR#: [id number] Acct: [id number] Name: TOSHA ALVARADO Rep #: [id number] : 1950 67 From: Trevor Mills DO PCP: Paulette Malloy MD Status: ADM IN Y Location: [place] [address] Reason for Consult Date of Consultation: 09/18/17 Reason for Consultation: Increased drainage and pain left above-knee amputation incision History of Present Illness: The patient is a 67 year old F that had a above-knee amputation by Dr. Hernandez August 28, 2017. Patient was doing very well until she sustained a fall landing directly onto her left stump. Since that time she has had increased bleeding and drainage. 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) Hammer toe of left foot (Chronic) Other specified peripheral vascular diseases (Chronic) Chronic anticoagulation (Chronic) Osteoporosis (Chronic) Acute on chronic congestive heart failure (Chronic) Cerebrovascular disease (Chronic) Status post acute ischemic stroke no residual deficit Moderate carotid disease Bilateral carotid endarterectomy Hypertension (Chronic) COPD (chronic obstructive pulmonary disease) (Chronic) Tobacco user (Chronic) Medical History: Medical History (Last Reviewed 04/17/17 @ 14:47 by eRd Millan MD) Atherosclerosis of [place] artery of left lower extremity (Chronic) I70.202 Neuropathic pain (Chronic) M79.2 Hyperlipidemia (Chronic) E78.5 Peripheral arterial occlusive disease (Chronic) I77.9 Type 2 diabetes mellitus with diabetic polyneuropathy (Chronic) E11.42 Osteoporosis (Chronic) M81.0 Acute on chronic congestive heart failure (Chronic) I50.9 Cerebrovascular disease (Chronic) I67.9 Status post acute ischemic stroke no residual deficit Moderate carotid disease Bilateral carotid endarterectomy Hypertension (Chronic) I10 COPD (chronic obstructive pulmonary disease) (Chronic) J44.9 Tobacco user (Chronic) Z72.0 abdominal aorta endovascular stent graft Allergies levofloxacin [From Levaquin] Allergy (Verified 08/21/17 15:01) Other Red streak up her arm and itiching pregabalin [From Lyrica] Allergy (Verified 08/28/17 09:34) Other Sulfa (Sulfonamide Antibiotics) Allergy (Verified 08/21/17 15:01) Anaphylaxis duloxetine [From Cymbalta] Adverse Reaction (Verified 08/21/17 15:01) Vomiting sertraline HCl [From Zoloft] Adverse Reaction (Verified 08/21/17 15:01) MAKES ME CRAZY makes me crazy Home Medications: Ambulatory Orders Medication Instructions Recorded Linacolotide [Linzess] 145 mcg PO DAILY 04/04/17 Metoprolol Tartrate [Lopressor 50 mg PO TID 04/04/17 Surgical History: Surgical History (Last Reviewed 04/17/17 @ 14:47 by Red Millan MD) History of appendectomy Z98.890, Z90.49 History of bilateral carotid endarterectomy Z98.890 History of hysterectomy Z98.890, Z90.710 bilateral femoral endarterectomy bilateral iliac stenting Surgical History: appendectomy, hysterectomy, - - Bilateral carotid endarterectomy,pad surgery with stents. 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 Lives: With Family Smoking Status: Current some day smoker Tobacco Use: Cigarettes Alcohol: None Drugs: None - *Family History Paternal Family History: Family History (Last Reviewed 04/17/17 @ 14:47 by Red Millan MD) Mother CVA (cerebral vascular accident) History Items: Heart Disease Maternal Family History: Family History (Last Reviewed 04/17/17 @ 14:47 by Red Millan MD) Mother CVA (cerebral vascular accident) History Items: No pertinent history Review of Systems Constitutional: Denies: Chills, Fever, Weight Change HEENT: Denies: Head Aches, Sinus Congestion, Sinus Drainage Cardiovascular: Denies: Chest Pain, Palpitations Respiratory: Denies: Cough, Shortness of breath at rest, Sputum production Gastrointestinal: Denies: Abdominal Pain, Nausea, Vomiting Musculoskeletal: Reports: - - Per history of present illness - Physical Exam General: Alert, Oriented x3, Cooperative HEENT: Atraumatic Neck: Supple Lungs: Normal air movement Musculoskeletal: - - The incision is well approximated. There is some mild erythema about the incision. There is some scant drainage noted at the anterior medial most aspect of the incision. The wound is still approximated and has not dehisced. Neurological: Cranial nerves II-XII grossly intact Psych/Mental Status: Normal Affect Vital Signs Temp Pulse Resp BP Pulse Ox 98.5 F 81 18 100/50 L 96 09/17/17 16:00 09/17/17 22:12 09/17/17 22:12 09/17/17 21:27 09/17/17 22:12 Oxygen Flow Rate (L/min) 2 Oxygen Delivery Method Nasal Cannula Weight: 106 lb 4 oz Body Mass Index (BMI) 22.6 Finger Stick Blood Glucose 89 Intake and Output for Last 24 Hours Intake Total 540 / 540 960 / 960 Balance 540 / 540 960 / 960 Assessment/Plan All Active Problems (Last Reviewed 04/17/17 @ 14:47 by Red Millan MD) Shortness of breath (Acute) Fracture of fifth toe, left, closed (Acute) Abdominal pain (Acute) Chronic hypoxemic respiratory failure (Acute) Vertebral compression fracture (Acute) Hyponatremia (Resolved) Viral syndrome (Resolved) Cellulitis of foot (Ruled-out) Drainage of left above-knee knee amputation stump with some erythema about the stump. Going to place the patient on Augmentin. We will also do a Hibiclens scrub and application of a negative pressure dressing. I do not feel further surgical debridement is necessary. The negative pressure dressing will stay on for 7 days. Patient will follow up with Dr. Hernandez as scheduled 09/18/1740 <Electronically signed by Trevor Mills DO> Date Trevor Mills DO Cosigner Signature (if applicable): Date CC: Paulette Malloy MD; Trevor Mills DO Signed VENOUS DUPLEX LOWER Observed: 09/16/2017 Status: F Source: [place] EXTREMITY 5:12 PM [facility] REPOSITORY [facility] Cardiovascular Services [address] [address] Venous Duplex US, Unilateral 09/16/17 1031 MR#: [id number] Acct: [id number] Name: TOSHA ALVARADO Rep #: [id number] : 1950 67 From: Talat Tirado MD Attending Dr: Mark Huber MD, Chi Status: ADM IN Ordering Dr: Mark Huber MD Date: 09/13/17 Location: TCU Sex: F C Admitted: 08/31/17 Reason For Study: RLE Pain RIGHT GSV is normal. CFV is compressible, spontaneous, phasic, competent and demonstrates normal augmentation. FV is compressible, spontaneous, phasic, competent and demonstrates normal augmentation. POP V is compressible, spontaneous, phasic, competent and demonstrates normal augmentation. T/P Trunk is compressible. PTV is compressible. RT PerV is compressible. Procedure Exam performed portable in patient room. A preliminary report was called and/or faxed to TCU. Interpretation Summary Deep veins of the right lower extremity are patent and compressible segmentally. There is no evidence of right lower extremity deep vein thrombosis. Valvular competence appears intact within the proximal deep venous system on the right . The right greater saphenous vein appears patent and compressible segmentally. Ordering Physician: Mark Huber Chi Referring Physician: Paulette Malloy Performed By: Coni Gallagher, RDCS, RVT 09/16/17 1711 Date Talat Tirado MD CC: Paulette Malloy MD; Mark Huber MD Date Dictated: 09/16/17 1031 Date Transcribed: 09/16/17 1711 Anthropometrist: Signed HIP, UNI W/ PELVIS Observed: 09/15/2017 Status: F Source: [place] 2-3 VIEWS 2:10 PM [facility] REPOSITORY [facility] Imaging Services [address] [place] [address] HIP, UNI W/ Pelvis 2-3 Views MR#: [id number] Acct: [id number] Name: TOSHA ALVARADO Rep #: [id number] : 1950 F 67 From: Sidney Esposito MD PCP: Paulette Malloy MD Status: ADM IN Study: HIP, UNI W/ Pelvis 2-3 Views Date of Exam: 09/15/17 Exam# [id number] Ordering Dr: Mark Huber MD STUDY: X-RAY - PELVIS AND LEFT HIP REASON FOR EXAM: Female, 67 years old. And pain and fall TECHNIQUE: Radiological exam, hip, unilateral, with pelvis when performed; 2 or 3 views. COMPARISON: None. FINDINGS: No evidence for acute fractures. Bilateral vascular stent device is in the iliac arteries seen. Calcifications overlying the iliac bones also seen. Calcific densities in the subcutaneous of the right proximal thigh. Vascular calcifications. Multiple surgical clips. Overlying bowel gas limits assessment of the sacrum. No evidence for acute femoral neck fractures. The superior and inferior pubic rami are within normal limits. IMPRESSION: No definite evidence for acute femoral neck fracture seen. Electronically Signed: Sidney Esposito, at 15:05 EDT Tel , Service support , RAD/HIP, UNI W/ Pelvis 2-3 Views CC: Paulette Malloy MD; Mark Huber MD Anthropometrist: Signed BASIC METABOLIC Collected: 09/15/2017 Status: F Source: [place] PROFILE (BMP) 5:55 AM [facility] REPOSITORY TYPE CODE TESTS RESULT OUT OF RANGE REFERENCE UNITS LAB L501.0100 74-106 mg/dL Normal GLU 100 Result Comment: Fasting Glucose result from 100 to 125 mg/dL suggests IMPAIRED HOMEOSTASIS per A.D.A. criteria. Please note revised GLUCOSE reference range effective 2017. LAB L501.1000 7-18 mg/dL Normal BUN 18 LAB L501.1100 0.55-1.02 mg/dL Low CREAT,SERUM 0.54 Result Comment: The validity of the calculated GFR AND GFRAA in patients over 70 years has not been determined. Clinical correlation is essential. LAB L501.1110 >60 mL/min Normal EST GFR 120 Result Comment: Non- GFR Calc LAB L501.1115 >60 mL/min Normal EST GFR - AA 145 Result Comment: GFR Calc LAB L501.1255 ml/min Normal Estimated CRCL 75.91 LAB L501.1300 10-20 RATIO High BUN/CRE 33.3 LAB L501.2200 8.5-10 mg/dL Normal .1 CA 8.7 LAB L501.5300 136-14 mmol/L Low 5 NA 132 LAB L501.5600 3.5-5. mmol/L Normal 1 K 4.2 LAB L501.5900 98-107 mmol/L Low CL 95 LAB L501.6100 21.0-3 mmol/L High 2.0 CO2 33.0 LAB L501.6200 5-15 Low GAP 4 Performed By: #### L500.2500 #### [facility] [place], [address] CBC W/DIFF, AUTOMATED Collected: 09/15/2017 Status: F Source: [place] 5:55 AM [facility] REPOSITORY TYPE CODE TESTS RESULT OUT OF RANGE REFERENCE UNITS LAB L100.1000 4.4-11.0 K/mm3 Normal WBC 5.3 LAB L100.1200 4.2-5.4 M/mm3 Low RBC 2.76 LAB L100.1300 12.0-15.0 g/dl Low HGB 8.0 LAB L100.1400 37-47 % Low HCT 26.0 LAB L100.1500 81-99 fL Normal MCV 94.2 LAB L100.1600 27.0-32.0 pg Normal MCH 29.0 LAB L100.1700 32-36 g/gl Low MCHC 30.8 LAB L100.1810 11.6-14.6 % High RDW CV 16.0 LAB L100.1820 35.1-43.9 fl High RDW SD 53.3 LAB L100.1900 150-450 K/mm3 Normal PLT 227 LAB L100.2000 6.2-12.0 fl Normal MPV 9.1 LAB L100.2100 47-70 % Normal NEUT% 62.7 LAB L100.2200 19-41 % Normal LY% 22.6 LAB L100.2300 0-10 % High MONO% 11.4 LAB L100.2400 0-5 % Normal EO% 2.9 LAB L100.2500 0-1 % Normal BASO% 0.4 LAB L100.2550 0.0-0.9 % Normal IM GRAN % 0.000 Result Comment: IG% - Immature Granulocytes (promyelocytes, myelocytes and metamyelocytes) > 1% indicates that a LEFT SHIFT is Present. LAB L100.2620 2.0-7.7 X10 3/uL Normal Absolute Neut 3.3 LAB L100.2720 0.83-4.51 X10 3/ul Normal Absolute Lymph 1.19 Performed By: #### L100.0100 #### [facility] [address] [facility] [place], [address] HISTORY AND PHYSICAL Observed: 09/05/2017 Status: F Source: [place] EXAM 7:54 AM [facility] REPOSITORY [facility] Medical Records Department [address] [place] [address] History and Physical 08/31/17 1736 MR#: [id number] Acct: [id number] Name: TOSHA ALVARADO Rep #: [id number] : 1950 67 From: Mark Huber MD PCP: Paulette Malloy MD Status: ADM IN Y Location: [place] [address] ADDENDUM by Mark Huber MD on 09/05/17 at 0754 Code Visit Depression - Rx Escitalopram 10MG daily. Anxiety - Lorazepam 0.5MG PO Q6H PRN. 09/05/17 0754 <Electronically signed by Mark Huber MD> Date Mark Huber MD cc: Paulette Malloy MD; Mark Huber MD * Signed Problem List (1) Foot ulcer, left Status: Chronic (2) Diabetes mellitus Status: Chronic (3) Tobacco abuse Status: Chronic (4) Neuropathic pain Status: Chronic (5) Seizure disorder Status: Chronic (6) Insomnia Status: Chronic (7) Hyperlipidemia Status: Chronic (8) Peripheral arterial occlusive disease Status: Chronic (9) Osteoporosis Status: Chronic (10) Hypertension Status: Chronic Qualifiers: (11) COPD (chronic obstructive pulmonary disease) Status: Chronic Qualifiers: History of Present Illness Date of Admission: 08/31/17 Chief Complaint: Here for rehabilitation, strengthening, prior to discharge home with family. The patient is a 67 year old Female with below past medical history presented to [facility] Emergency Department 07/13/2017 with left toe pain. Left foot ulcer x 10 months. Excruciating pain. Failed leg leg bypasses. Needs left leg amputation. 08/21/2017 Chest X-ray showed COPD, no acute changes. 08/28/2017 Dr. Hernandez performed left above knee amputation. 08/29/2017 Tylenol, OxyIR for pain. Compressive dressing to left AKA stump. 08/30/2017 Xarelto for DVT. Nausea controlled with anti-emetic. 08/31/2017 Admit to TCU with rehabilitation, strengthening, prior to discharge home with family. 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) Hammer toe of left foot (Chronic) Other specified peripheral vascular diseases (Chronic) Chronic anticoagulation (Chronic) Osteoporosis (Chronic) Acute on chronic congestive heart failure (Chronic) Cerebrovascular disease (Chronic) Status post acute ischemic stroke no residual deficit Moderate carotid disease Bilateral carotid endarterectomy Hypertension (Chronic) COPD (chronic obstructive pulmonary disease) (Chronic) Tobacco user (Chronic) Medical History: Medical History (Last Reviewed 04/17/17 @ 14:47 by Red Millan MD) Atherosclerosis of [place] artery of left lower extremity (Chronic) I70.202 Neuropathic pain (Chronic) M79.2 Hyperlipidemia (Chronic) E78.5 Peripheral arterial occlusive disease (Chronic) I77.9 Type 2 diabetes mellitus with diabetic polyneuropathy (Chronic) E11.42 Osteoporosis (Chronic) M81.0 Acute on chronic congestive heart failure (Chronic) I50.9 Cerebrovascular disease (Chronic) I67.9 Status post acute ischemic stroke no residual deficit Moderate carotid disease Bilateral carotid endarterectomy Hypertension (Chronic) I10 COPD (chronic obstructive pulmonary disease) (Chronic) J44.9 Tobacco user (Chronic) Z72.0 abdominal aorta endovascular stent graft Allergies levofloxacin [From Levaquin] Allergy (Verified 08/21/17 15:01) Other Red streak up her arm and itiching pregabalin [From Lyrica] Allergy (Verified 08/28/17 09:34) Other Sulfa (Sulfonamide Antibiotics) Allergy (Verified 08/21/17 15:01) Anaphylaxis duloxetine [From Cymbalta] Adverse Reaction (Verified 08/21/17 15:01) Vomiting sertraline HCl [From Zoloft] Adverse Reaction (Verified 08/21/17 15:01) MAKES ME CRAZY makes me crazy Home Medications: Ambulatory Orders Medication Instructions Recorded Linacolotide [Linzess] 145 mcg PO DAILY 04/04/17 Surgical History: Surgical History (Last Reviewed 04/17/17 @ 14:47 by Red Millan MD) History of appendectomy Z98.890, Z90.49 History of bilateral carotid endarterectomy Z98.890 History of hysterectomy Z98.890, Z90.710 bilateral femoral endarterectomy bilateral iliac stenting Surgical History: appendectomy, hysterectomy, - - Bilateral carotid endarterectomy,pad surgery with stents. 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 Lives: With Family Smoking Status: Current some day smoker Tobacco Use: Cigarettes Alcohol: None Drugs: None - *Family History Paternal Family History: Family History (Last Reviewed 04/17/17 @ 14:47 by Red Millan MD) Mother CVA (cerebral vascular accident) History Items: Heart Disease Maternal Family History: Family History (Last Reviewed 04/17/17 @ 14:47 by Red Millan MD) Mother CVA (cerebral vascular accident) History Items: No pertinent history Review of Systems Constitutional: Denies: Chills, Fever, Weight Change HEENT: Denies: Head Aches, Sinus Congestion, Sinus Drainage Cardiovascular: Denies: Chest Pain, Palpitations Respiratory: Denies: Cough, Shortness of breath at rest, Sputum production Gastrointestinal: Denies: Abdominal Pain, Nausea, Vomiting Genitourinary: Denies: Dysuria Musculoskeletal: Denies: Joint Pain, Joint Tenderness Skin: Denies: Rash, Wounds Neurological: Denies: Numbness, Tingling, Focal weakness Psychiatric: Denies: Anxiety, Depression, Homicidal Ideations, Suicidal Ideations Hematologic/ Lymphatic: Denies: Easy Bruising, Easy Bleeding VTE Information - Inpt Only VTE Present on Admission: No VTE Mechan Device Prophylaxis: Knee High JER Hose VTE Pharm Prophylaxis ordered?: No Reason prophylaxis not ordered:: Treatment Not Indicated - Physical Exam General: Alert, Oriented x3, Cooperative HEENT: Atraumatic, PERRLA, EOMI, Normocephalic Neck: Supple, No JVD, Negative Carotid Bruits Lungs: Clear to auscultation, Normal air movement Cardiovascular: Regular rate, No murmurs Abdomen: Bowel Sounds Present, Soft, Non Tender Extremities: No edema, Capillary Refill Less than 3 Seconds, - - Left Above Knee Amputation. Skin: No rashes, No breakdown Musculoskeletal: No Tenderness to Palpation of Joints or Extremities Neurological: Cranial nerves II-XII grossly intact Psych/Mental Status: Normal Affect, Appropriate Finger Stick Blood Glucose 89 Assessment/Plan All Active Problems (Last Reviewed 04/17/17 @ 14:47 by Red Millan MD) Shortness of breath (Acute) Fracture of fifth toe, left, closed (Acute) Abdominal pain (Acute) Chronic hypoxemic respiratory failure (Acute) Vertebral compression fracture (Acute) Hyponatremia (Resolved) Viral syndrome (Resolved) Cellulitis of foot (Ruled-out) 67 year old female with below past medical history hospitalized for left above knee amputation 08/28/[address] Hernandez, admitted to TCU with debility, here or rehabilitation, strengthening, prior to discharge home with family. * Debility - PT/OT. * Pain - Tylenol 1000MG Q8H, Oxycodone 5-10MG Q4H PRN moderate to severe pain. * Bowel - Miralax 17GM daily, Linzess 145MCG daily. * Pneumonia vaccination - Administer Prevnar 13 and/or Pneumovax 23 as necessary. * DVT prophylaxis - Not necessary, already on Xarelto. * COPD - Pulmicort 0.5MG BID, Duoneb 3ML Q6H, Albuterol 2.5MG Q4H PRN, Albuterol 2 puffs Q6H PRN. * Hyperlipidemia - Atorvastatin 20MG QHS. * PAOD - Plavix 75MG daily. * Nutrition - MVI daily, Malik 1 packet BID, Ensure Enlive 120ML TID. * GERD - Pantoprazole 40MG daily, Famotidine 20MG BID. * Iron deficiency anemia - Ferrous Gluconate 324MG daily. * Neuropathic pain - Gabapentin 600MG TID. * Hypertension - Metoprolol 50MG TID, Hydralazine 25MG Q8H PRN SBP > 160. * DVT - Xarelto 20MG daily. * Hyponatremia - Sodium Chloride 1GM daily. * Insomnia - Trazodone 50MG QHS. 09/02/17 0818 <Electronically signed by Mark Huber MD> Date Mark Huber MD Cosigner Signature: Date (if applicable) CC: Paulette Malloy MD; Mark Huber MD Signed CBC W/DIFF, AUTOMATED Collected: 09/01/2017 Status: F [facility] [facility] TYPE CODE TESTS RESULT OUT OF RANGE REFERENCE UNITS LAB L100.1000 4.4-11.0 K/mm3 Normal WBC 5.7 LAB L100.1200 4.2-5.4 M/mm3 Low RBC 3.37 LAB L100.1300 12.0-15.0 g/dl Low HGB 9.6 LAB L100.1400 37-47 % Low HCT 31.3 LAB L100.1500 81-99 fL Normal MCV 92.9 LAB L100.1600 27.0-32.0 pg Normal MCH 28.5 LAB L100.1700 32-36 g/gl Low MCHC 30.7 LAB L100.1810 11.6-14.6 % High RDW CV 15.0 LAB L100.1820 35.1-43.9 fl High RDW SD 51.0 LAB L100.1900 150-450 K/mm3 Normal PLT 206 LAB L100.2000 6.2-12.0 fl Normal MPV 8.8 LAB L100.2100 47-70 % Normal NEUT% 65.7 LAB L100.2200 19-41 % Low LY% 15.9 LAB L100.2300 0-10 % High MONO% 13.5 LAB L100.2400 0-5 % Normal EO% 4.7 LAB L100.2500 0-1 % Normal BASO% 0.2 LAB L100.2550 0.0-0.9 % Normal IM GRAN % 0.000 Result Comment: IG% - Immature Granulocytes (promyelocytes, myelocytes and metamyelocytes) > 1% indicates that a LEFT SHIFT is Present. LAB L100.2620 2.0-7.7 X10 3/uL Normal Absolute Neut 3.8 LAB L100.2720 0.83-4.51 X10 3/ul Normal Absolute Lymph 0.91 Performed By: #### L100.0100, L500.2500 #### [facility] [address] [place], [address] CBC W/DIFF, AUTOMATED Collected: 08/31/2017 Status: F Source: [place] 12:40 PM [facility] REPOSITORY TYPE CODE TESTS RESULT OUT OF RANGE REFERENCE UNITS LAB L100.1000 4.4-11.0 K/mm3 Normal WBC 5.4 LAB L100.1200 4.2-5.4 M/mm3 Low RBC 3.55 LAB L100.1300 12.0-15.0 g/dl Low HGB 10.1 LAB L100.1400 37-47 % Low HCT 32.7 LAB L100.1500 81-99 fL Normal MCV 92.1 LAB L100.1600 27.0-32.0 pg Normal MCH 28.5 LAB L100.1700 32-36 g/gl Low MCHC 30.9 LAB L100.1810 11.6-14.6 % High RDW CV 14.9 LAB L100.1820 35.1-43.9 fl High RDW SD 50.5 LAB L100.1900 150-450 K/mm3 Normal PLT 169 LAB L100.2000 6.2-12.0 fl Normal MPV 9.1 LAB L100.2100 47-70 % Normal NEUT% 64.5 LAB L100.2200 19-41 % Low LY% 18.1 LAB L100.2300 0-10 % High MONO% 13.5 LAB L100.2400 0-5 % Normal EO% 3.7 LAB L100.2500 0-1 % Normal BASO% 0.2 LAB L100.2550 0.0-0.9 % Normal IM GRAN % 0.000 Result Comment: IG% - Immature Granulocytes (promyelocytes, myelocytes and metamyelocytes) > 1% indicates that a LEFT SHIFT is Present. LAB L100.2620 2.0-7.7 X10 3/uL Normal Absolute Neut 3.5 LAB L100.2720 0.83-4.51 X10 3/ul Normal Absolute Lymph 0.97 Performed By: #### L100.0100 #### [facility] [address] [place], [place], [id number] BASIC METABOLIC Collected: 08/31/2017 Status: F Source: [place] PROFILE ([facility]) 12:40 PM [facility] REPOSITORY TYPE CODE TESTS RESULT OUT OF RANGE REFERENCE UNITS LAB L501.0100 74-106 mg/dL Normal GLU 77 Result Comment: Please note revised GLUCOSE reference range effective 2017. LAB L501.1000 7-18 mg/dL Normal BUN 15 LAB L501.1100 0.55-1.02 mg/dL Normal CREAT,SERUM 0.63 Result Comment: The validity of the calculated GFR AND GFRAA in patients over 70 years has not been determined. Clinical correlation is essential. LAB L501.1110 >60 mL/min Normal EST GFR 101 Result Comment: Non- GFR Calc LAB L501.1115 >60 mL/min Normal EST GFR - AA 122 Result Comment: GFR Calc LAB L501.1255 ml/min Normal Estimated CRCL 68.21 LAB L501.1300 10-20 RATIO High BUN/CRE 23.8 LAB L501.2200 8.5-10 mg/dL Normal .1 CA 8.8 LAB L501.5300 136-14 mmol/L Low 5 NA 127 LAB L501.5600 3.5-5. mmol/L High 1 K 5.3 LAB L501.5900 98-107 mmol/L Normal CL 99 LAB L501.6100 21.0-3 mmol/L Normal 2.0 CO2 24.0 LAB L501.6200 5-15 Low GAP 4 Performed By: #### L500.2500 #### [facility] [address] [facility] [place], [address] TRANSFER TO [facility] Observed: 08/31/2017 Status: F Source: [facility] 11:57 [facility] REPOSITORY [facility] Medical Records Department [address] [place] [address] Transfer to [facility] Care MR#: [id number] Acct: [id number] Name: ROJAS ELIZABETHTOSHA Jesus Rep #: [id number] : 1950 67 From: Violet Yancey MD PCP: Paulette Malloy MD Status: ADM IN BOB TOSHA BENNETT Jesus (Patient) (Health Ins. Claim No.) (Day of Discharge to Facility) Certification of patient admission REQUIRED AT TIME OF ADMISSION. I CERTIFY THAT POST-HOSPITAL ECF SERVICES ARE REQUIRED TO BE GIVEN ON AN IN-PATIENT BASIS BECAUSE OF THE ABOVE NAMED PATIENT'S NEED FOR SENIOR LIVING CARE ON A CONTINUING BASIS FOR THE CONDITION(S) FOR WHICH HE/SHE WAS RECEIVING IN-PATIENT HOSPITAL SERVICES PRIOR TO HIS/HER TRANSFER TO THE ECF. 08/31/17 1157 <Electronically signed by Violet Yancey MD> Date Violet Yancey MD - Diet 08/28/17 16:29 Diet: Regular Diet Type of Dietary Supplement:: Ensure Complete Is pt able to select menu?: Yes - Routine Orders/Code Status O2 Liters per Minute: 3L O2 Frequency: Continuous Keep PO Greater than or Equal to (%): 94 Routine Lab Work: CBC - in 3 days, BMP - in 3 days - Wound(s) LEFT LEG Wound Type: Surgical Incision Dressing Change: Dry Sterile Dressing - Therapies Weight Bearing: Non weight bearing Extremity Affected:: Left Lower Physical Therapy: Eval and Treat Occupational Therapy: Eval and Treat - Allergies/Procedures Done in Hospital Allergies/Adverse Reactions: Allergies levofloxacin [From Levaquin] Allergy (Verified 08/21/17 15:01) Other Red streak up her arm and itiching pregabalin [From Lyrica] Allergy (Verified 08/28/17 09:34) Other Sulfa (Sulfonamide Antibiotics) Allergy (Verified 08/21/17 15:01) Anaphylaxis duloxetine [From Cymbalta] Adverse Reaction (Verified 08/21/17 15:01) Vomiting sertraline HCl [From Zoloft] Adverse Reaction (Verified 08/21/17 15:01) MAKES ME CRAZY makes me crazy Procedures: - - s/p L AKA - Type of Care/Length of Stay Estimated LOS: Convalescent Care Less Than 30 days Type of Care Needed: Skilled Rehab Potential: Fair Prognosis: Good - Additional Orders/Day of Discharge Additional Orders: May shower in 1 day per orthopedics. Keep dressing c/d/i. Ice LLE stump 20 minutes for each hour awake. Keep operative limb elevated above the heart. Change dressing in 2 days. Remove dressing in 5 days if incision is clean, dry and intact. Compression dressing every other day; last dressing change 08/31/17 Day of Discharge: 08/31/17 - Dietary and Speech Recommendations Dietitian Recommendations/Changes: Continue on regular diet. Would benefit from a cardiac, low-sodium diet once PO improves. Recommend 1 packet Malik BID to promote wound healing, especially with hx of poor wound healing. Request new weight- S/P amputation. - Follow Up Care Primary Care Physician: Paulette Malloy MD [Primary Care Provider] - Please follow up with your Primary Care Physician in: within 1-2 weeks after discharge from TCU Please Follow Up With: Gopal Hernandez MD When: Within 2 weeks 08/31/17 1157 <Electronically signed by Violet Yancey MD> Date Violet Yancey MD CC: Aurora Hdz MD; Paulette Malloy MD; Mars Carlson DO Signed DISCHARGE INSTRUCTION Observed: 08/31/2017 Status: F Source: [place] 9:01 [facility] REPOSITORY [facility] Medical Records Department [address] [place] [address] Instructions for Home/Discharge Instructions 08/31/17 0859 MR#: [id number] Acct: [id number] Name: TOSHA ALVARADO Rep #: [id number] : 1950 67 From: Gopal Hernandez MD PCP: Paulette Malloy MD Status: ADM IN Discharge Diet: No Restrictions Discharge Activity: May Not Drive May shower in (days): 1 - keep inc c/d/i Ice area for (Minutes): 20 - Ice area for 20 minutes each hour while awake Weight Bearing Status: No weight bearing - LLE Keep extremity elevated above heart level: Operative Extremity Call your doctor if your incision/area has: Continuous Slow Oozing, Sudden Increased Bleeding, Increased Pain/ Swelling, Increased Redness, Foul Smelling Discharge Call your doctor if you observe: Fever of 101 or Higher, Coldness, Increased Pain, Numbness or Tingling, Change in Color Change Dressing in (Days):: 2 Remove Dressing in (days):: 5 - If incision is clean dry and intact Cleanse incision/area with: Keep Dressing Clean AND Dry Additional Dressing/Incision Instructions:: Compressive dressing changes every other day last dressing change 08/31/2017 Allergies/Adverse Reactions: Allergies levofloxacin [From Levaquin] Allergy (Verified 08/21/17 15:01) Other Red streak up her arm and itiching pregabalin [From Lyrica] Allergy (Verified 08/28/17 09:34) Other Sulfa (Sulfonamide Antibiotics) Allergy (Verified 08/21/17 15:01) Anaphylaxis duloxetine [From Cymbalta] Adverse Reaction (Verified 08/21/17 15:01) Vomiting sertraline HCl [From Zoloft] Adverse Reaction (Verified 08/21/17 15:01) MAKES ME CRAZY makes me crazy Medications to take at Discharge Acetaminophen [Tylenol Extra Strength] 500 mg PO Q6H PRN PRN 04/04/17 Linacolotide [Linzess] 145 mcg PO DAILY 04/04/17 Metoprolol Tartrate [Lopressor (Beta Lorie)] 50 mg PO TID 04/04/17 Promethazine HCl 25 mg PO Q8H PRN PRN 04/04/17 traZODone [Desyrel] 50 mg PO QHS 04/04/17 Albuterol Aerosols [Ventolin Aerosols] 2.5 mg INHALATION Q4H PRN PRN 04/05/17 Albuterol IH (ProAir) [Proair Hfa (SP)Vent Pts] 2 puff INHALATION Q6H PRN PRN 04/05/17 Gabapentin [Neurontin] 600 mg PO TIDCM 04/05/17 Ipratropium/Albuterol Sulfate [Duoneb] 3 ml INHALATION Q6HWA.RT 04/05/17 Sodium Chloride 1 gm PO DAILY 04/05/17 Clopidogrel Bisulfate [Plavix] 75 mg PO DAILY 07/13/17 Rivaroxaban [Xarelto] 20 mg PO DAILY 07/13/17 Atorvastatin Calcium [Lipitor] 20 mg PO QDAY 08/21/17 Budesonide Aerosol [Pulmicort Aerosol] 0.5 mg INHALATION BID 08/21/17 Ferrous Gluconate 324 mg PO DAILY 08/29/17 Pantoprazole Sodium 40 mg PO DAILY 08/29/17 Primary Care Physician: Paulette Malloy MD [Primary Care Provider] - Test Results: Test results from this visit will be discussed in further detail at your follow-up appointment, if applicable. Proposed Discharge Date: 08/31/17 08/31/17900 <Electronically signed by Gopal Hernandez MD> Date Gopal Hernandez MD CC: Aurora Hdz MD; Paulette Malloy MD; Mars Carlson DO BEDSIDE GLUCOSE Collected: 08/28/2017 Status: F Source: [place] 2:47 PM [facility] REPOSITORY TYPE CODE TESTS RESULT OUT OF RANGE REFERENCE UNITS LAB L501.080 70-110 mg/dL Normal BEDSIDE GLU 89 Result Comment: MANAGEMENT OF PATIENT CARE PER NURSING PROTOCOL Performed By: #### L501.080 #### [facility] Point of Care [address] [facility] [place] [address] OPERATIVE REPORT Observed: 08/28/2017 Status: F Source: [place] 11:56 AM [facility] REPOSITORY [facility] Medical Records Department [address] [facility] [place] [address] Operative Report 08/28/17 1047 MR#: [id number] Acct: [id number] Name: BOB ELIZABETHTOSHA Lee Rep #: [id number] : 1950 67 From: Gopal Hernandez MD PCP: Paulette Malloy MD Status: ADM IN Y Location: [place] [address] Report of Operation Date of Procedure: 08/28/17 Pre-Operative Diagnosis: Left lower extremity peripheral vascular disease with chronic ulcerations and pain Post-Operative Diagnosis: Left lower extremity peripheral vascular disease with chronic ulcerations and pain Surgery/Procedure Performed:: Left leg above-knee amputation Description of Surgical Findings:: Amputated 1 hand breadth above the patella wood engraver: Mackenzie Anne Type of Anesthesia:: Spinal Anesthesiologist: Kisha Francisco Special Medications: 2 g Ancef Specimen's removed: Leg left Estimated Blood Loss (mL): 50 Fluids Replaced: 500 ML crystalloid Description of Procedure: Brief history operative indications: 67-year-old female with chronic peripheral vascular disease and chronic pain with ulcerations. Patient failed multiple attempts at debridement unable to heal wounds. She also had significant pain requiring significant medications. Bypass was attempted. After failed bypass with vascular surgery they recommended above-knee amputation based on her peripheral vascular studies. Risks and benefits of above-knee amputation were discussed with the patient including but not limited to blood loss, DVTs, PEs, neurovascular damage, infection, general risk of anesthesia, neuromas and chronic wound healing issues. We also discussed loss of life. Procedure: On the date of the procedure patient's left leg was marked in the preoperative area. Patient taken at the operating room where there transferred to the table in the supine position. They were set up for a anesthetic and then placed back in supine position. Once spinal was set up all bony prominences were identified well- padded. Tourniquet was placed on left upper thigh patient was prepped in a sterile fashion. Anesthesia assumed control the C-spine airway throughout this procedure and remained controlled throughout the procedure. Surgeons then scrubbed. Upon reentering the room after the leg was properly prepped leg was draped in standard orthopedic fashion. [place] incision was made with the plantar cut being 1 handbreadth above the top of the patella. Timeout was called and when agreed upon the side, the site, and the procedure be performed, patient's identity and antibiotics given. Esmarch bandage was used to exsanguinate the extremity and tourniquet was placed up to 250 mmHg. Incision was taken down through skin subtenons tissue fat down to fascia. Once the entire skin and fatty tissue incision was made Bovie dissection was taken down through tenderness and muscular tissues in a fishmouth fashion. On the medial side of the knee we located the neurovascular structures particularly the vascular lumen and clamped them off. They were then transected. Clamps remain. Saw was used to cut the femur at the plan section and the rasp was used to soften the bone edges. Posterior tissues were then completed in the transection. The nerve was identified clamped and transected. Once the leg was completely amputated it was sent on the back table in separate specimen. We then directed our attention to the vessels. Large vessels were tied off first with a stick tied and a nonstick type. 2 ties on both major vessels. The nerve did not appear to have major associated bleeding. At this time he was pulled and cut sharply and allowed to retract. Once this was done the tourniquet was let down and hemostasis was obtained. Wound was then copiously out normal saline. 1 g of TXA was given IV. Fascia was then closed using #1 Vicryl skin was closed using 2-0 Vicryl and 3-0 nylon. Silver dressing was placed, compressive dressing was placed. Patient was awakened by anesthesia and transferred to the PACU for recovery. Postoperative plan for the patient compressive dressing for 2 weeks. She can begin her Xarelto tomorrow. - Complications none - Admit VTE Documentation VTE Present on Admission: No VTE Mechan Device Prophylaxis: SCD's VTE Pharm Prophylaxis ordered?: Yes 08/28/17 1156 <Electronically signed by Gopal Hernandez MD> Date Gopal Hernandez MD CC: Aurora Hdz MD; Paulette Malloy MD; Gopal Hernandez MD Signed BEDSIDE GLUCOSE Collected: 08/28/2017 Status: F Source: [place] 9:47 AM [facility] REPOSITORY TYPE CODE TESTS RESULT OUT OF RANGE REFERENCE UNITS LAB L501.080 70-110 mg/dL Normal BEDSIDE GLU 86 Result Comment: MANAGEMENT OF PATIENT CARE PER NURSING PROTOCOL Performed By: #### L501.080 #### [facility] Point of Care [address] [place] [address] AMPUTATION (CHOOSE Observed: 08/28/2017 Status: F Source: [facility]) 12:00 AM [facility] REPOSITORY Patient: TOSHA ALVARADO : 1950 (67/F) Acct Num: [id number] Phys: Violet Yancey MD Unit Num: [id number] Loc: MS3 [id number] Specimen: [id number] Received: 08/28/17 - 1066 Spec Type: Amputation TISSUES TISSUES: Leg, NOS GROSS DESCRIPTION Received labeled with the patient's name and designated above knee amputation, left. The specimen consists of a left lower extremity above knee amputation. The leg measures from posterior cutaneous resection margin to heel 43 cm in length and from tip of the great toe to heel 24 cm. The anterior cutaneous resection margin is 4 cm above the posterior cutaneous resection margin. A 6 cm portion of the femur is projecting beyond the anterior cutaneous resection margin. A healed scar is noted over the knee measuring 17 cm in length. An ecchymotic area is noted on the dorsal surface of the foot. Two areas of ulceration are noted, one on the medial surface of the great toe measuring 2 x 1 cm and the second one is on the lateral surface of the fourth toe measuring 3 x 1.5 cm. Dorsalis pedis vessels, anterior tibial vessels, posterior tibial vessels and popiteal vessels are dissected and show marked calcification and almost obliteration of tissue. The popliteal vessel shows a clip at the resection margin. Package Wrapper sections are submitted as follows: 1 ulcerated areas, 2 cutaneous and skeletal muscle resection margins, 3 bone marrow at the resection margin, 4 dorsalis pedis vessels, 5 anterior tibial vessels, 6 posterior tibial vessels, 7 AND 8 bone underneath the area of ulceration. Casettes 4 to 8 are submitted after decalcification. The vessels will be sectioned at the time of embedding. 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 MICROSCOPIC DIAGNOSIS Left leg, above knee amputation: Focal ulceration and associated acute inflammation and necrosis. Underlying bone with acute osteomyelitis. Anterior tibial vessel, posterior tibial vessel and dorsalis pedis vessel with marked atherosclerotic changes and calcification. Special stains for acid fast bacilli and fungi are negative for organisms; matched controls are appropriate. HERMILO:kai 09/02/17 Signed Cirilo Aguillon 09/03/17 <signature on file> Performed By: #### PAMP #### [facility] [address] [place] [address]. [place], [address] PROGRESS Observed: 08/22/2017 Status: COMPLETED Source: [place] 12:57 PM [facility] REPOSITORY HNO ID: [id number] Author: Anabel Tan Cma Service: (none) Author Type: (none) Type: Progress Notes Filed: 08/22/2017 12:57 PM Note Text: Letter mailed to patient. PROGRESS Observed: 08/22/2017 Status: COMPLETED Source: [place] 12:55 PM [facility] REPOSITORY HNO ID: [id number] Author: Anabel Tan Cma Service: (none) Author Type: (none) Type: Progress Notes Filed: 08/22/2017 12:57 PM Note Text: Upcoming appointment w/labs prior 10/02. I will send reminder of appt AND labs. Due for Dm retinal exam. I will send Dm retinal reminder w/attached release form. AKI Observed: 08/22/2017 Status: COMPLETED Source: [place] 12:00 AM [facility] REPOSITORY Patient Outreach ([facility]) TOSHA ALVARADO ([id number]) 1950 F CHT Date Time Provider Department 08/22/17 ANABEL TAN ([facility]) [facility] During your visit today, we recorded the following information about you: Anabel Tan [facility] 08/22/2017 12:57 PM Signed Upcoming appointment w/labs prior 10/02. I will send reminder of appt AND labs. Due for Dm retinal exam. I will send Dm retinal reminder w/attached release form. Anabel Tan [employer]st 08/22/2017 12:57 PM Signed Letter mailed to patient. Allergies As of Date: 08/22/2017 Noted Allergy Reaction CYCLOBENZAPRINE 08/05/2016 11 - Vomiting DULOXETINE 12/24/2016 11 - Vomiting LORAZEPAM 12/24/2016 11 - Vomiting LYRICA (PREGABALIN) 04/29/2012 5 - Intolerance Comments: Foggy feeling PINEAPPLE 11/24/2013 4 - Hives Comments: Mouth breaks out, swelling SEASONAL ALLERGIES 05/17/2010 14 - Other: See Comments Comments: nasal congestion and eyes itch, water and burn SERTRALINE HCL 12/24/2016 1 - Mental Status Change Comments: makes me crazy SULFA (SULFONAMIDE ANTIBIOTICS) 10/16/2011 4 - Hives Date Reviewed: 06/29/2017 Reviewed by: Margot Ji [facility] - Fully Assessed Reason for Visit: PHMA/Care Gap Outreach [0155] Prescriptions as of 08/22/2017 Sig: HYDROCODONE 5 MG-ACETAMINOPHE* Take 1 tablet by mouth every * FERROUS GLUCONATE 324 MG (37.* Take 1 tablet by mouth daily * TRAZODONE 50 MG TABLET Take 1 tablet by mouth daily * METOPROLOL TARTRATE 50 MG TAB* Take 1 tablet by mouth three * SODIUM CHLORIDE 1 GRAM TABLET Take 1 tablet by mouth once d* PROMETHAZINE 25 MG TABLET TAKE (1) TABLET BY MOUTH EVER* LEVETIRACETAM 750 MG TABLET Take 1 tablet by mouth twice * IPRATROPIUM-ALBUTEROL 0.5 MG-* Inhale 3 mL as instructed fou* XARELTO 20 MG TABLET Take 20 mg by mouth once ghada* LINACLOTIDE 290 MCG CAPSULE Take 1 capsule by mouth once * PANTOPRAZOLE 40 MG TABLET,DEL* Take 1 tablet by mouth once d* ATORVASTATIN 20 MG TABLET CLOPIDOGREL 75 MG TABLET ONDANSETRON 4 MG DISINTEGRATI* Take 1 tablet by mouth every * COMPOUNDED PRESCRIPTION Walker with wheels in the fro* COMPOUNDED PRESCRIPTION Ensure Clear. 237 ml twice d* COMPOUNDED PRESCRIPTION ensure chocolate twice daily * ALBUTEROL SULFATE HFA 90 MCG/* Inhale 2 Puffs as instructed * COMPOUNDED PRESCRIPTION 1.Attends discreet underwear * FOOD SUPPLEMENT, LACTOSE-REDU* Take 237 mL by mouth twice da* BUDESONIDE 0.5 MG/2 ML SUSPEN* Use 2 mL via nebulizer twice * COMPOUNDED PRESCRIPTION Mobile chair COMPOUNDED PRESCRIPTION Hospital bed No: 1 COMPOUNDED PRESCRIPTION Empi 4 Lead TENS Unit Dx: M5* COMPOUNDED PRESCRIPTION Shower bars: Re: gait inst* COMPOUNDED PRESCRIPTION PHYSICAL THERAPY for the back* BLOOD-GLUCOSE METER KIT 1 Each as needed. BLOOD SUGAR DIAGNOSTIC STRIPS Use as instructed LANCETS Use as instructed Problem List As Of Date 08/22/2017 Noted Resolved Low sodium levels [E87.1] INVALID FOR*02/22/2015 HTN (hypertension) [I10] INVALID FOR* Priority: C More... Atrial fibrillation [I48.91] INVALID FOR* Priority: C More... Syncope [R55] INVALID FOR*02/22/2015 Diarrhea [R19.7] INVALID FOR*02/22/2015 Nausea with vomiting [R11.2] INVALID FOR*02/22/2015 Acute gastritis without mention of hemorrhage [*INVALID FOR*02/22/2015 Sleeping difficulty [G47.9] INVALID FOR*02/22/2015 Depression [F32.9] INVALID FOR* More... Polyarthralgia [M25.50] INVALID FOR* Anxiety [F41.9] INVALID FOR* More... Renal artery stenosis [I70.1] INVALID FOR* More... End stage COPD (HCC) [J44.9] Priority: B More... OA (osteoarthritis) of knee [M17.10] INVALID FOR* TIA (transient ischemic attack) [G45.9] INVALID FOR* Pelvis fracture (HCC) [S32.9XXA] INVALID FOR*02/22/2015 Unequal leg length (acquired) [M21.70] INVALID FOR* Osteoporosis [M81.0] INVALID FOR* More... Peripheral arterial disease [I73.9] INVALID FOR* Priority: B More... Chronic mesenteric ischemia (HCC) [K55.1] INVALID FOR* Priority: A More... Post-op pain [G89.18] INVALID FOR* Priority: D More... Intravascular volume depletion [E86.1] INVALID FOR*03/08/2013 Priority: F More... Nausea [R11.0] INVALID FOR*03/07/2013 Priority: G More... Atelectasis [J98.11] INVALID FOR*03/24/2015 Priority: D More... Difficult intravenous access [Z78.9] INVALID FOR* Priority: D More... Volume overload [E87.70] INVALID FOR* Priority: F More... Severe malnutrition (HCC) [E43] INVALID FOR* Priority: B More... Hyponatremia [E87.1] INVALID FOR* Priority: B More... Peripheral artery disease (HCC) [I73.9] INVALID FOR* Priority: A More... Neurological complaint [R29.90] INVALID FOR* More... Critical lower limb ischemia [I99.8] INVALID FOR* More... DM (diabetes mellitus), type 2 with peripheral *INVALID FOR* Priority: E More... Hypotension, unspecified [I95.9] INVALID FOR*03/24/2015 Priority: D More... Tobacco abuse disorder [Z72.0] INVALID FOR*08/25/2016 Priority: B More... ASO (arteriosclerosis obliterans) [I70.90] INVALID FOR*03/23/2015 On mechanically assisted ventilation (HCC) [Z99*INVALID FOR*03/24/2015 More... CAD (coronary artery disease) [I25.10] INVALID FOR* Priority: C More... Postoperative infection [T81.4XXA] INVALID FOR*07/24/2016 Priority: A More... Ischemia of foot [I99.8] INVALID FOR* Seizures (HCC) [R56.9] INVALID FOR* Dizziness [R42] INVALID FOR* Confusion [R41.0] INVALID FOR* SIADH (syndrome of inappropriate ADH production*INVALID FOR* More... 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 SBO (small bowel obstruction) ([facility]) [K56.609] INVALID FOR* Severe protein-calorie malnutrition (HCC) [E43] INVALID FOR* S/P femoral-tibial bypass [Z98.890] INVALID FOR* Letter Text [place] [facility] PAULETTE MALLOY MD [address] [place] [phone] Dear Tosha Bennett Your health care is very important to us. Our records indicate that you may be due for a diabetic eye exam. If you have had a diabetic eye exam within the last year, please have your records sent to us so that we may update your medical records. There is a medical records of release of information included in this letter. Please take the release to your eye doctor for future appointments to have your records forwarded to us. Important facts about diabetic eye exams Diabetic retinal exams should be done yearly for all patients with a diagnosis of diabetes. Risks such as diabetic retinopathy can be reduced with blood glucose control and early detection of potential problems. Diabetic retinopathy is damage to the small blood vessels in the retina that can lead to blindness Thank you, PAULETTE MALLOY MD Letter Text [facility] [place] [phone] Office: [phone] Paulette Malloy MD REQUEST FOR EYE EXAM FINDINGS March 02, 2016 Dear eye hiv/aids care nurse, Thank you for coordinating eye care for our mutual patient, Tosah Bennett (1950). Please fax this letter back to me with the most appropriate response selected below. Please allow the patient's signature to serve as permission to share your findings. Sincerely, Paulette Malloy MD Patient Signature Date Date of eye exam: Findings Both Eyes Right Left No Retinopathy Detected Non Proliferative Retinopathy Mild Moderate Severe Proliferative Retinopathy Macular Edema Further testing and/or treatment indicated Comments: Patient is to return: Encounter Status:Closed by ANABEL TAN CMA on 08/22/17 CHEST PA AND LATERAL Observed: 08/21/2017 Status: F Source: [place] 4:17 PM [facility] REPOSITORY [facility] Imaging Services [address] [place] [address] Chest PA and Lateral MR#: [id number] Acct: [id number] Name: TOSHA ALVARADO Rep #: [id number] : 1950 F 67 From: Merlin Vizcarra DO PCP: Paulette Malloy MD Status: PRE IN Study: Chest PA and Lateral Date of Exam: 08/21/17 Exam# [id number] Ordering Dr: Gopal Hernandez MD STUDY: X-RAY CHEST REASON FOR EXAM: Female, 67 years old. Pre-op. TECHNIQUE: PA and lateral views of the chest. COMPARISON: February 28, 2017. FINDINGS: There is hyperinflation of the lungs consistent with chronic obstructive lung disease (COPD). There is bilateral apical pleural scarring. There is no new infiltrate or mass within the lungs. There is no demonstrated pleural effusion.. Normal size heart. Normal mediastinum and rhea. Normal visualized pulmonary arteries. There is atherosclerotic calcification of the aortic arch with tortuosity. There is mild dextroscoliosis and degenerative changes of the lumbar spine. There are compression deformities of what is thought to be T6 and T7 with exaggerated kyphosis. There are multiple remote bilateral rib fractures. There is no demonstrated abnormality of the visualized soft tissue structures of the upper abdomen. RAD/Chest PA and Lateral IMPRESSION: 1. COPD without acute cardiopulmonary disease or major interval change. Electronically Signed: Merlin VizcarraDO at 16:38 EDT Tel [phone], Service support , CC: Paulette Malloy MD; Gopal Hernandez MD Anthropometrist: Signed CBC W/DIFF, AUTOMATED Collected: 08/21/2017 Status: F Source: [place] 4:01 PM [facility] REPOSITORY TYPE CODE TESTS RESULT OUT OF RANGE REFERENCE UNITS LAB L100.1000 4.4-11.0 K/mm3 Normal WBC 5.1 LAB L100.1200 4.2-5.4 M/mm3 Low RBC 3.43 LAB L100.1300 12.0-15.0 g/dl Low HGB 9.9 LAB L100.1400 37-47 % Low HCT 31.7 LAB L100.1500 81-99 fL Normal MCV 92.4 LAB L100.1600 27.0-32.0 pg Normal MCH 28.9 LAB L100.1700 32-36 g/gl Low MCHC 31.2 LAB L100.1810 11.6-14.6 % Normal RDW CV 13.9 LAB L100.1820 35.1-43.9 fl High RDW SD 45.7 LAB L100.1900 150-450 K/mm3 Normal PLT 258 LAB L100.2000 6.2-12.0 fl Normal MPV 9.2 LAB L100.2100 47-70 % Normal NEUT% 56.3 LAB L100.2200 19-41 % Normal LY% 29.7 LAB L100.2300 0-10 % High MONO% 11.0 LAB L100.2400 0-5 % Normal EO% 2.6 LAB L100.2500 0-1 % Normal BASO% 0.2 LAB L100.2550 0.0-0.9 % Normal IM GRAN % 0.200 Result Comment: IG% - Immature Granulocytes (promyelocytes, myelocytes and metamyelocytes) > 1% indicates that a LEFT SHIFT is Present. LAB L100.2620 2.0-7.7 X10 3/uL Normal Absolute Neut 2.9 LAB L100.2720 0.83-4.51 X10 3/ul Normal Absolute Lymph 1.51 Performed By: #### L100.0100 #### [facility] [address] [place], [address] PROTHROMBIN TIME W/INR Collected: 08/21/2017 Status: F Source: [place] 4:01 PM [facility] REPOSITORY TYPE CODE TESTS RESULT OUT OF RANGE REFERENCE UNITS LAB L300.4150 11.7-14.9 SECONDS High PROTIME 17.5 LAB L300.4200 Normal INR 1.4 Performed By: #### L300.3900, L300.4310 #### [facility] [address] [place], [address] PARTIAL THROMBOPLAST Collected: 08/21/2017 Status: F Source: [place] TIME 4:01 PM [facility] REPOSITORY TYPE CODE TESTS RESULT OUT OF REFERENCE UNITS RANGE LAB L300.4310 24.1-36.2 Seconds High PTT 42.9 Performed By: #### L300.3900, L300.4310 #### [facility] [address] [facility] [place], [address] BASIC METABOLIC Collected: 08/21/2017 Status: F Source: [place] PROFILE (BMP) 4:01 PM [facility] REPOSITORY TYPE CODE TESTS RESULT OUT OF RANGE REFERENCE UNITS LAB L501.0100 74-106 mg/dL Normal GLU 84 Result Comment: Please note revised GLUCOSE reference range effective 2017. LAB L501.1000 7-18 mg/dL Normal BUN 13 LAB L501.1100 0.55-1.02 mg/dL High CREAT,SERUM 1.06 Result Comment: The validity of the calculated GFR AND GFRAA in patients over 70 years has not been determined. Clinical correlation is essential. LAB L501.1110 >60 mL/min Low EST GFR 55 Result Comment: Non- GFR Calc LAB L501.1115 >60 mL/min Normal EST GFR - AA 67 Result Comment: GFR Calc LAB L501.1255 ml/min Normal Estimated CRCL 40.54 LAB L501.1300 10-20 RATIO Normal BUN/CRE 12.3 LAB L501.2200 8.5-10 mg/dL Low .1 CA 8.1 LAB L501.5300 136-14 mmol/L Low 5 NA 135 LAB L501.5600 3.5-5. mmol/L Normal 1 K 4.4 LAB L501.5900 98-107 mmol/L Normal CL 100 LAB L501.6100 21.0-3 mmol/L Normal 2.0 CO2 28.0 LAB L501.6200 5-15 Normal GAP 7 Performed By: #### L500.2500, L500.3400 #### [facility] [address] [place], [address] LIVER PROFILE Collected: 08/21/2017 Status: F Source: [place] 4:01 PM [facility] REPOSITORY TYPE CODE TESTS RESULT OUT OF RANGE REFERENCE UNITS LAB L501.1500 6.4-8.2 g/dL Normal T PROT 7.5 LAB L501.1800 3.2-5.0 g/dL Normal ALB 3.3 LAB L501.1950 2.2-4.2 g/dL Normal GLOB 4.2 LAB L501.4100 15-37 U/L Normal AST 18 LAB L501.4305 45-117 U/L Normal ALK P 99 LAB L501.4405 13-56 U/L Normal ALT 18 LAB L501.4600 0.20-1.00 mg/dL Normal T BILI 0.20 LAB L501.4700 0.00-0.30 mg/dL Normal D BILI < 0.05 Performed By: #### L500.2500, L500.3400 #### [facility] [address] [facility] [place], [address] HEMOGLOBIN A1C Collected: 08/21/2017 Status: F Source: [place] 4:01 [facility] [place] REPOSITORY TYPE CODE TESTS RESULT OUT OF RANGE REFERENCE UNITS LAB L501.9985 4.2-6.3 % Normal HGB A1C 4.9 Performed By: #### L501.9985 #### [facility] [address] [place], [address] DOWNTIME REPORT Observed: 07/31/2017 Status: F Source: [place] 2:08 PM [facility] Medical Records Department [address] [place] [address] Downtime Report MR#: [id number] Acct: [id number] Name: TOSHA LAVARADO Rep #: [id number] : 1950 67 From: Jorge Winters MD PCP: Paulette Malloy MD Status: DEP ER This patient was seen during an EMR downtime July 15, 2017 - July 22, 2017. This patient may have a combination of paper and electronic documentation or all paper documentation. All documentation is viewable within the e-chart portion of [employer] for each patient visit. FOOT MIN 3 VIEWS Observed: 07/18/2017 Status: F Source: [place] 2:20 PM [facility] Imaging Services [address] [place] [address] Foot min 3 Views MR#: [id number] Acct: [id number] Name: TOSHA ALVARADO Rep #: [id number] : 1950 F 67 From: Irving Sidhu MD PCP: Paulette Malloy MD Status: REG ER Study: Foot min 3 Views Date of Exam: 07/16/17 Exam# [id number] Ordering Dr: Surjit Lu MD STUDY: X-RAY - LEFT FOOT CLINICAL: Female, 67 years old. Infection and fourth and fifth great toes. Evaluate for osteomyelitis. TECHNIQUE: 3 view(s) of the foot. COMPARISON: July 13, 2017 FINDINGS: There is stable generalized osteopenia. Normal talus, calcaneus, and tarsal bones. Normal visualized subtalar, talonavicular, calcaneocuboid, tarsal and tarsometatarsal articulations. Normal metatarsi. There is mild arthrosis of the metatarsophalangeal and interphalangeal joints unchanged. The soft tissue structures are unremarkable. RAD/Foot min 3 Views IMPRESSION: Stable osteopenia with osteoarthritic change. No evidence of osteomyelitis. Electronically Signed: Irving Sidhu MD at 14:58 EDT , Service support , CC: Paulette Malloy MD; Surjit Lu Anthropometrist: Signed Observed: 07/16/2017 Status: F Source: [place] CULTURE, BLOOD (WB) 11:55 AM [facility] REPOSITORY BC No growth in 5 days. Performed By: #### M200.1000 #### [facility] [address] [place], [address] BASIC METABOLIC Collected: 07/16/2017 Status: F Source: [place] PROFILE (BMP) 12:00 AM [facility] REPOSITORY Order Comment: RESULT(S) PREVIOUSLY REPORTED ON MANUAL REQUISITION DURING DOWNTIME. TYPE CODE TESTS RESULT OUT OF RANGE REFERENCE UNITS LAB L501.0100 74-106 mg/dL Normal GLU 91 Result Comment: Please note revised GLUCOSE reference range effective 2017. LAB L501.1000 7-18 mg/dL Low BUN 6 LAB L501.1100 0.55-1.02 mg/dL Low CREAT,SERUM 0.48 Result Comment: The validity of the calculated GFR AND GFRAA in patients over 70 years has not been determined. Clinical correlation is essential. LAB L501.1110 >60 mL/min Normal EST GFR 138 LAB L501.1115 >60 mL/min Normal EST GFR - AA 167 LAB L501.1300 10-20 RATIO Normal BUN/CRE 12.5 LAB L501.2200 8.5-10.1 mg/dL Normal CA 8.8 LAB L501.5300 136-145 mmol/L Low NA 132 LAB L501.5600 3.5-5.1 mmol/L Normal K 4.1 LAB L501.5900 98-107 mmol/L Low CL 93 LAB L501.6100 21.0-32.0 mmol/L Normal CO2 31.0 LAB L501.6200 5-15 Normal GAP 8 Performed By: #### L500.2500, L501.6710 #### [facility] [address] [place], [place], [address] CRP Collected: 07/16/2017 Status: F Source: [place] 12:00 AM [facility] REPOSITORY Order Comment: RESULT(S) PREVIOUSLY REPORTED ON MANUAL REQUISITION DURING DOWNTIME. TYPE CODE TESTS RESULT OUT OF RANGE REFERENCE UNITS LAB L501.6710 0.0-3.0 mg/L High 8.81 C-REACTIVE PROT Result Comment: C-Reactive Protein (CRP) provides useful information for the diagnosis, therapy and monitoring of inflammatory processes and associated diseases. For the evaluation of Relative Risk for Cardiovascular Disease, a High Sensitivity CRP (HSCRP) should be ordered. Performed By: #### L500.2500, L501.6710 #### [facility] [address] [place], [address] CBC W/DIFF, AUTOMATED Collected: 07/14/2017 Status: P Source: [place] 12:00 AM [facility] REPOSITORY Order Comment: RESULT(S) PREVIOUSLY REPORTED ON MANUAL REQUISITION DURING DOWNTIME. TYPE CODE TESTS RESULT OUT OF RANGE REFERENCE UNITS LAB L100.1000 4.4-11.0 K/mm3 Normal WBC 4.6 LAB L100.1200 4.2-5.4 M/mm3 Low RBC 3.40 LAB L100.1300 12.0-15.0 g/dl Low HGB 9.9 LAB L100.1400 37-47 % Low HCT 31.4 LAB L100.1500 81-99 fL Normal MCV 92.4 LAB L100.1600 27.0-32.0 pg Normal MCH 29.1 LAB L100.1700 32-36 g/gl Low MCHC 31.5 LAB L100.1810 11.6-14.6 % Normal RDW CV 12.8 LAB L100.1820 35.1-43.9 fl Normal RDW SD 41.9 LAB L100.1900 150-450 K/mm3 Normal PLT 201 LAB L100.2000 6.2-12.0 fl Normal MPV 9.0 LAB L100.2100 47-70 % Normal NEUT% 63.6 LAB L100.2200 19-41 % Normal LY% 22.4 LAB L100.2300 0-10 % High MONO% 12.1 LAB L100.2400 0-5 % Normal EO% 1.3 LAB L100.2500 0-1 % Normal BASO% 0.4 LAB L100.2550 0.0-0.9 % Normal IM GRAN % 0.200 Result Comment: IG% - Immature Granulocytes (promyelocytes, myelocytes and metamyelocytes) > 1% indicates that a LEFT SHIFT is Present. LAB L100.2620 2.0-7.7 X10 3/uL Normal Absolute Neut 2.9 LAB L100.2720 0.83-4.51 X10 3/ul Normal Absolute Lymph 1.02 Performed By: #### L100.0100, L101.9900 #### [facility] [address] [place], [address] ERYTHROCYTE SED RATE Collected: 07/14/2017 Status: F Source: [place] 12:00 AM [facility] REPOSITORY Order Comment: RESULT(S) PREVIOUSLY REPORTED ON MANUAL REQUISITION DURING DOWNTIME. TYPE CODE TESTS RESULT OUT OF RANGE REFERENCE UNITS LAB L102.0000 0-30 mm/hr Test Normal SED not performed RATE Result Comment: TEST WAS MISSED DURING DOWNTIME. Performed By: #### L100.0100, L101.9900 #### [facility] [address] [place], [address] DISCHARGE INSTRUCTION Observed: 07/13/2017 Status: F Source: [place] 3:10 PM [facility] REPOSITORY [facility] Medical Records Department [address] [place] [address] Discharge Instruction 07/13/17 1503 MR#: [id number] Acct: [id number] Name: TOSHA ALVARADO Rep #: [id number] : 1950 67 From: Lora Waldrop PCP: Paulette Malloy MD Status: REG ER ED Disposition - Plan for ED Patient: Chief Complaint: Lower Extremity Injury Diagnosis: Peripheral arterial occlusive disease Instructions: Critical Limb Ischemia Prescriptions: Oxycodone HCl/Acetaminophen [Percocet 5/325] 1 - 2 tablet PO Q4H PRN PRN 5 Days #20 tablet PRN Reason: Pain Clindamycin [Cleocin] 300 mg PO 4X/DAY #80 capsule Referrals: Gopal Hernandez MD [STAFF PHYSICIAN] - 3-5 Days What to do if you have Problems For any increased pain, shortness of breath, bleeding, nausea or vomiting, chest pain, or any unexpected problems, contact your Primary Care Provider. Call [facility] ([phone]) or report to the closest Emergency Room. Call [phone] if necessary. 07/13/17 1510 <Electronically signed by Lora Waldrop > Date Lora Waldrop Cosigner Signature (If Indicated): Date CC: Paulette Malloy MD EMERGENCY DEPARTMENT Observed: 07/13/2017 Status: F Source: [place] SUMMARY 3:03 PM [facility] REPOSITORY [facility] Medical Records Department [address] [place] [address] Emergency Department Summary 07/13/17 1214 MR#: [id number] Acct: [id number] Name: TOSHA ALVARADO Rep #: [id number] : 1950 67 From: Lora Waldrop PCP: Paulette Malloy MD Status: REG ER - ER Visit Summary Date of Service: 07/13/17 Chief Complaint: [Left toe pain] History of Present Illness: The patient is a 67 F [presents the emergency department with ulceration of left foot. It has been there for 10 months. Over the last couple of days the pain has become excruciating. It has become much worse. She has intermittent fevers. She is a smoker. She has type 2 diabetes but is no longer on any medications. She has been following with the wound center however it continues to get worse. He feels very nauseated she thinks this is from the pain.] Physical Examination: [] WN WD NAD PERRL EOMI MMM NECK supple and nontender, no masses Your tachycardic rhythm no murmur rub or gallop, no peripheral edema, symmetric radial pulses CTAB no respiratory distress ABDOMEN is soft and nontender, normal bowel sounds, no distension, no rebound or guarding SKIN is warm she has ulceration between the fourth and fifth toes with exposed muscle there is no surrounding erythema there is some necrotic tissue there is 1+ DP pulses she has full range of motion Alert and Oriented x3, CN II-XII in tact, no motor or sensory deficits, gait normal No lymphadenopathy Test Results: [] Emergency Department Course and Treatment: [Screening labs were obtained and show chronic hyponatremia at 126 there is no leukocytosis. X-rays show demineralization but no acute osteomyelitis. Gave her clindamycin and she did have necrotic tissue but was not obviously infected. I spoke with podiatry thinking she may need a workup for osteomyelitis however in speaking with them she they state that she has had multiple failed bypasses has chronic limb ischemia had been recommended an rwwxw-vig-[id number] amputation and was supposed to get that. I called the patient's vascular surgeon Dr. Hdz who states that he had referred her to Dr. Cr. The patient states she call for appointment but has not heard back. I spoke with orthopedics here Dr. Hernandez who states that he can see her as an outpatient but does not feel she needs to be admitted. I spoke with the patient and offered her transfer to [facility] for pain control and more expeditious amputation and she elected to go home with pain medicine and follow-up with Dr. Hernandez as she would like time to prepare. I did discuss with her that if she gets a fever or intractable pain she should return to the emergency department and we will reevaluate the situation at that time.] Treatment Plan: [] Disposition: [Discharge] Impression: [chronic limb ischemia to the left lower extremity] This note was generated with [employer] dictation software. It may contain incorrect words, spelling, and punctuation that were not noted in review of the chart prior to signing ED Disposition - Plan for ED Patient: Chief Complaint: Lower Extremity Injury Referrals: Paulette Malloy MD [Primary Care Provider] - What to do if you have Problems For any increased pain, shortness of breath, bleeding, nausea or vomiting, chest pain, or any unexpected problems, contact your Primary Care Provider. Call [facility] ([phone]) or report to the closest Emergency Room. Call [phone] if necessary. 07/13/17 1503 <Electronically signed by Lora Waldrop > Date Lora Waldrop Cosigner Signature (If Indicated): Date CC: Paulette Malloy MD CBC-COMPLETE BLOOD CNT Collected: 07/13/2017 Status: F Source: [place] NO DIFF 12:46 PM [facility] REPOSITORY TYPE CODE TESTS RESULT OUT OF RANGE REFERENCE UNITS LAB L100.1000 4.4-11.0 K/mm3 Normal WBC 6.0 LAB L100.1200 4.2-5.4 M/mm3 Low RBC 3.76 LAB L100.1300 12.0-15.0 g/dl Low HGB 10.6 LAB L100.1400 37-47 % Low HCT 32.8 LAB L100.1500 81-99 fL Normal MCV 87.2 LAB L100.1600 27.0-32.0 pg Normal MCH 28.2 LAB L100.1700 32-36 g/gl Normal MCHC 32.3 LAB L100.1810 11.6-14.6 % Normal RDW CV 13.5 LAB L100.1820 35.1-43.9 fl Normal RDW SD 43.1 LAB L100.1900 150-450 K/mm3 Normal PLT 235 LAB L100.2000 6.2-12.0 fl Normal MPV 8.9 Performed By: #### L100.0500 #### [facility] [address] [place], [place], [address] COMPREHENSIVE METABOLIC Collected: 07/13/2017 Status: F Source: [place] PROFIL 12:46 PM [facility] REPOSITORY TYPE CODE TESTS RESULT OUT OF RANGE REFERENCE UNITS LAB L501.0100 74-106 mg/dL Normal GLU 80 Result Comment: Please note revised GLUCOSE reference range effective 2017. LAB L501.1000 7-18 mg/dL Normal BUN 12 LAB L501.1100 0.55-1.02 mg/dL Normal CREAT,SERUM 0.68 Result Comment: The validity of the calculated GFR AND GFRAA in patients over 70 years has not been determined. Clinical correlation is essential. LAB L501.1110 >60 mL/min Normal EST GFR 93 Result Comment: Non- GFR Calc LAB L501.1115 >60 mL/min Normal EST GFR - AA 113 Result Comment: GFR Calc LAB L501.1255 ml/min Normal Estimated CRCL 62.01 LAB L501.1300 10-20 RATIO Normal BUN/CRE 17.8 LAB L501.1500 6.4-8. g/dL High 2 T PROT 8.5 LAB L501.1800 3.2-5. g/dL Normal 0 ALB 3.6 LAB L501.1950 2.2-4. g/dL High 2 GLOB 4.9 LAB L501.2000 0.9-2. RATIO Low 4 A/G 0.7 LAB L501.2200 8.5-10 mg/dL Normal .1 CA 9.2 LAB L501.4100 15-37 U/L High AST 40 Result Comment: Moderate Hemolysis, Result may be falsely increased. LAB L501.4305 45-117 U/L High ALK P 182 LAB L501.4405 13-56 U/L Normal ALT 32 LAB L501.4600 0.20-1.00 mg/dL Normal T BILI 0.50 LAB L501.5300 136-145 mmol/L Low NA 126 LAB L501.5600 3.5-5.1 mmol/L Normal K 4.8 Result Comment: Moderate Hemolysis, Result may be falsely increased. LAB L501.5900 98-107 mmol/L Low CL 89 LAB L501.6100 21.0-32.0 mmol/L Normal CO2 30.0 LAB L501.6200 5-15 Normal GAP 7 Performed By: #### L500.4050 #### [facility] [address] [place], [address] CRP Collected: 07/13/2017 Status: F Source: [place] 12:46 PM [facility] REPOSITORY TYPE CODE TESTS RESULT OUT OF RANGE REFERENCE UNITS LAB L501.6710 0.0-3.0 mg/L High 10.40 C-REACTIVE PROT Result Comment: C-Reactive Protein (CRP) provides useful information for the diagnosis, therapy and monitoring of inflammatory processes and associated diseases. For the evaluation of Relative Risk for Cardiovascular Disease, a High Sensitivity CRP (HSCRP) should be ordered. Performed By: #### L501.6710 #### [facility] [address] [place], [address] ERYTHROCYTE SED RATE Collected: 07/13/2017 Status: F Source: [place] 12:46 PM [facility] REPOSITORY TYPE CODE TESTS RESULT OUT OF RANGE REFERENCE UNITS LAB L102.0000 0-30 mm/hr High SED RATE 32 Performed By: #### L101.9900 #### [facility] [address] [facility] [place], [address] Observed: 07/13/2017 Status: F Source: [place] CULTURE, BLOOD (WB) 12:46 PM [facility] REPOSITORY BC No growth in 5 days. Performed By: #### M200.1000 #### [facility] [address] [place], [address] Observed: 07/13/2017 Status: F Source: [place] CULTURE, WOUND 12:30 PM [facility] REPOSITORY Order Date: 07/13/17 RESULT(S) PREVIOUSLY REPORTED ON MANUAL REQUISITION DURING DOWNTIME. Gram Stain Gram Stain 1+ White Blood Cells 3+ Gram positive cocci 1+ Gram negative rods Wound Culture #1 Clinical correlation necessary, Possible skin contamination. ORGANISM 1: Staphylococcus epidermidis Amount Growth 1+ ORGANISM 2: Pseudomonas fluorescens Amount Growth 2+ Staphylococcus epidermidis: REACTION Cefoxitin *NF POS Clindamycin $$ <=0.25 S Inducable Clindamycin Resistan POS Erythromycin $ >=8 R Gentamicin $ <=0.5 S Levofloxacin $ 4 I Linezolid $$$$ 1 S Oxacillin NF >=4 R Rifampin $$ <=0.5 S Tetracycline NF >=16 R Vancomycin $ 1 S (NF) indicates non-formulary drug at [facility]. Approval by Infectious Disease Specialist required before non-formulary drugs may be ordered and/or dispensed. * CLSI guidelines does not recommend testing of cephalosporins. This interpretation is deduced from Beta-lactam/penicillin results. Pseudomonas fluorescens: REACTION Ceftazidime *NF <=1 S Ciprofloxacin $ <=0.25 S Gentamicin $ <=1 S Imipenem *NF 2 S Levofloxacin $ <=0.12 S Piperacillin/Tazobactam $$ 8 S Tobramycin $ <=1 S (NF) indicates non-formulary drug at [facility]. Approval by Infectious Disease Specialist required before non-formulary drugs may be ordered and/or dispensed. Performed By: #### M100.1400 #### [facility] [address] [place], [address] Observed: 07/13/2017 Status: F Source: [place] CULTURE, ANAEROBIC ANY 12:30 PM [facility] SOURCE REPOSITORY Order Date: 07/13/17 Cult, Anaerobic No anaerobic bacteria isolated. Performed By: #### M100.4001 #### [facility] [address] [place], [address] FOOT MIN 3 VIEWS Observed: 07/13/2017 Status: F Source: [place] 12:19 PM [facility] REPOSITORY [facility] Imaging Services [address] [place] [address] Foot min 3 Views MR#: [id number] Acct: [id number] Name: TOSHA ALVARADO Rep #: [id number] : 1950 F 67 From: Yuriy Vail DO PCP: Paulette Malloy MD Status: REG ER Study: Foot min 3 Views Date of Exam: 07/13/17 Exam# [id number] Ordering Dr: Lora Waldrop STUDY: X-RAY - LEFT FOOT CLINICAL: Female, 67 years old. Pain and wound between multiple toes. TECHNIQUE: 3 view(s) of the foot. COMPARISON: None. FINDINGS: There is demineralization of the rear and midfoot bones. Normal visualized subtalar, talonavicular, calcaneocuboid, tarsal and tarsometatarsal articulations. There is demineralization of the metatarsi. There is degenerative arthrosis of the metatarsophalangeal joint of the hallux . Normal tibial and fibular sesamoid bones. Normal interphalangeal joint of the great toe. Normal phalanges of the great toe. Normal second through fifth metatarsophalangeal joints. Normal interphalangeal joints and phalanges of the lesser toes. The soft tissue structures are unremarkable. RAD/Foot min 3 Views IMPRESSION: Diffuse demineralization throughout the foot with no evidence of focal erosion or acute process. Electronically Signed: Yuriy Vail DO at 13:12 EDT , Service support , CC: Lora Waldrop; Paulette Malloy MD Anthropometrist: Signed Observed: 07/13/2017 Status: F Source: [place] CULTURE, BLOOD (WB) 12:15 PM [facility] REPOSITORY BC No growth in 5 days. Performed By: #### M200.1000 #### [facility] [address] [place], [address] PROGRESS Observed: 06/29/2017 Status: COMPLETED Source: [place] 12:06 PM [facility] [place] REPOSITORY HNO ID: [id number] Author: Paulette Malloy Service: (none) Author Type: Physician Type: Progress Notes Filed: 06/29/2017 1:03 PM Note Text: Reason for Visit Patient presents with: Tayler Colemanlise Bennett is a 67 year old female who presents here today for Above Complaints.. Health Maintenance DTAP,TDAP,TD(1 - Tdap) MAMMOGRAM DILATED RETINAL EXAM DIABETIC FOOT EXAM HBA1C ADULT PREVNAR-13 PNEUMOVAX AGE 65 AND OVER WITH 5YR LOOKBACK(1) HPI Since her last visit, she say she does not feel better, she knows with her severe PVD Only option left now is that it would need amputation. Vascular surgeon is who will be making the decision for patient. She will see Dr hdz the 31 of July encouraged her to see him earlier and make that decision sooner than later, I do not think her quality of life will get worse after amputation it will only get better. She has a lot of pain right now which might fabrice after her surgey. She is going to see the wound centre on Saturday. She is not eating well drinking ensure Below is from Kriss Katz Note which has a good synopsis of what happened. 2017 ?? CT of the abdominal aorta and bilateral lower extremities that showed extensive atherosclerotic health conditions in the distal abdominal aorta extending to the common iliac arteries. ?Presence of stents extending from the distal abdominal aorta to the common femoral arteries bilaterally. ?Patent right superficial femoral artery to the level of the popliteal artery was scattered areas moderate stenosis and calcification of the levels popliteal artery. ?The distal left superficial femoral artery at the level of the ductus canal was not definitely identified however it appears to be reconstituted distally with moderate stenosis and calcification with level of the knee. ? 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 ?Good flow into the common femoral artery with very large profunda. ?Common femoral artery imaging from profunda down shows extensive collaterals overfilling the anterior tibial in the upper part With good flow down into the foot. ?This appears to be the main runoff. ?Plan was to redo left femoral or left responded to mid anterior tibial artery bypass with a cadaver vein. ? April 17, [address] Millan.??Stress testing was advised. ?Noted to be low risk for Atrovent. ? April 21, 2017 [facility] Emergency department visit for left great toe and left fourth toe pain. ?They did have a start on the fourth toe. ?Discussed arterial occlusion. ?X-ray with nothing acute. ?Treated with Clarkson and Augmentin. ?Impression vascular insufficiency involving the left leg, long-standing with dry gangrene lesions to the toes. ?Chest x-ray showed persistent moderate volume overload bilateral pleural effusions mild cardiomegaly. ? May 10, 2017 [facility] dobutamine stress test negative for ischemia at 92% of maximal predicted heart rate, 1 MET. ? May 16 2017 [facility] visit for foot pain due to arterial insufficiency. ? 05/23/2017 Rodrigo Bullock Presented for recurrent severe peripheral arterial disease with several failed interventions bypass on the left leg. 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 She underwent left anterior tibial endarterectomy with patch angioplasty and left femoral to anterior tibial bypass with reverse greater saphenous CryoVein. ? Medications at discharge: Plavix 75 oral daily, per DEXA twice a day, albuterol, DuoNeb, atorvastatin 20 mg oral daily, budesonide, gabapentin, Lantus, metoprolol tartrate 50 mg 3 times a day, promethazine, trazodone. ? Presents today reporting she feels improved. She reports resuming normal diet. Has been supplementing with ensure. Reports no constipation, has been using Linzess. Reports RUQ discomfort with food. Nauseous x 1, no vomiting, or diarrhea. No fever. Incision is healing well, without redness swelling or drainage. Was seen by Dr. Millan, started on atorvastatin 20 mg in April 2017. Not completely clear on which medication she is taking. Currently on Xarelto and Plavix as pradaxa was not covered by her insurance. Has home health present. She reports foot pain is about the same as prior to surgery. No problem-specific Assessment AND Plan notes found for this encounter. 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 Tx to RNF. 03/10/2013 +BM 03/11/2013 D/C NGT -start clears. D/C curran and CLOUD SOLUTIONS ARCHITECT. Incision CDI. 03/12/2013 Start regular diet with 6 small meals per day. Encourage ambulation. PT/OT rec SNF. 03/13/2013 Tolerating small meals. Incision CDI. D/C to SNF. At the time of discharge, patient was afebrile, VSS. - Compression fracture - Congenital atresia and stenosis of aorta - COPD (chronic obstructive pulmonary disease) ([facility]) - Depression - Diarrhea - Diverticulosis of colon (without mention of hemorrhage) - DM (diabetes mellitus) (HCC) - H. pylori infection - HTN (hypertension) - Hyponatremia - Lumbar vertebral fracture (HCC) - Nausea AND vomiting - Osteoporosis - Pelvis fracture (HCC) 10/27/2010 - Peripheral arterial disease 11/25/2012 Patient admitted from OSH with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 CEPHALEXIN 500 MG CAPSULE 21 c* 0 06/29/2017 06/29/2017 Route: ORAL Sig: Take 1 capsule by mouth three times daily for 7 days. FERROUS GLUCONATE 324 MG (37.5 MG IR* 30 t* 1 06/29/2017 Route: ORAL Sig: Take 1 tablet by mouth daily with breakfast. Medications Discontinued During This Encounter citalopram (CELEXA) 20 mg tablet 30 t* 3 03/21/2017 06/29/2017 Route: ORAL Sig: Take 1 tablet by mouth once daily. Disc: Reason for discontinue is not on file. gabapentin (NEURONTIN) 800 mg tablet 90 t* 3 01/12/2017 06/29/2017 Route: ORAL Sig: Take 1 tablet by mouth three times daily. Disc: Reason for discontinue is not on file. montelukast (SINGULAIR) 10 mg tablet 30 t* 5 01/12/2017 06/29/2017 Route: ORAL Sig: Take 1 tablet by mouth daily at bedtime. Disc: Reason for discontinue is not on file. lisinopril (PRINIVIL) 10 mg tablet 90 t* 2 08/25/2016 06/29/2017 Route: ORAL Sig: Take 1 tablet by mouth once daily. Disc: Reason for discontinue is not on file. ferrous sulfate 325 mg (65 mg iron) * 60 t* 0 07/10/2016 06/29/2017 Route: ORAL Sig: Take 1 tablet by mouth twice daily. Disc: Reason for discontinue is not on file. dabigatran etexilate (PRADAXA) 150 m* 60 c* 1 07/25/2015 06/29/2017 Route: ORAL Sig: Take 1 capsule by mouth twice daily. Disc: Reason for discontinue is not on file. DULoxetine (CYMBALTA) 30 mg capsule 0 10/17/2016 06/29/2017 Class: Historical Med Route: ORAL Sig: Take 60 mg by mouth once daily. Disc: Reason for discontinue is not on file. fentaNYL (DURAGESIC) 12 mcg/hr pt72 0 09/28/2016 06/29/2017 Class: Historical Med Route: TRANSDERMAL Sig: Apply 1 Patch as directed every 72 hours. Disc: Reason for discontinue is not on file. levETIRAcetam (KEPPRA) 750 mg tablet 08/07/2016 06/29/2017 Class: Med Update Route: ORAL Sig: Take 1 tablet by mouth twice daily. Disc: Reason for discontinue is not on file. cephALEXin (KEFLEX) 500 mg capsule 21 c* 0 06/29/2017 06/29/2017 Route: ORAL Sig: Take 1 capsule by mouth three times daily for 7 days. Disc: Reason for discontinue is not on file. Encounter Status:Closed by PAULETTE MALLOY MD on 06/29/17 IR ARTERIOGRAM Observed: 06/20/2017 Status: F Source: [facility] 10:30 AM [facility] REPOSITORY ORIGINAL Images acquired, not reported on this accession number. CBC Collected: 06/20/2017 Status: F [facility] AM [facility] REPOSITORY TYPE CODE TESTS RESULT OUT OF REFERENCE UNITS RANGE LAB WBC(LOINC) 4.50-10.80 10 3/mcL Low WBC 3.80 LAB RBCCT(LOINC 4.10-5.30 10 6/mcL ) Low RBC 3.75 LAB HGB(LOINC) 12.0-16.0 G/dL Low Hgb 11.2 LAB HCT(LOINC) 34.0-46.0 % Low Hct 33.2 LAB MCV(LOINC) 80.0-99.0 fL MCV 88.6 LAB MCH(LOINC) 27.0-33.0 pg MCH 29.9 LAB MCHC(LOINC) 32.0-36.0 G/dL MCHC 33.8 LAB RDW(LOINC) 11.5-15.5 % RDW 13.7 LAB PLT(LOINC) 150-450 10 3/mcL Platelet 198 LAB MPV(LOINC) 6.6-10.5 fL MPV 7.3 Performed By: #### CBC, ADIFF, ANEU, RFP, GFR, APTT, PRO #### [place] [address] .AUTO DIFF Collected: 06/20/2017 Status: F [facility]06 AM [facility] REPOSITORY TYPE CODE TESTS RESULT OUT OF REFERENCE UNITS RANGE LAB JOSEPH(LOINC) 50.0-75.0 % Neutrophil % 53.1 LAB LYM(LOINC) 20.0-40.0 % Lymphocyte % 30.7 LAB MON(LOINC) 2.0-13.0 % Monocyte % 12.0 LAB EO(LOINC) 0.0-6.0 % Eosinophil % 3.5 LAB BAS(LOINC) 0.0-2.5 % Basophil % 0.7 LAB ABLYM(LOIN 0.90-4.32 10 3/mcL C) Lymphocyte, 1.20 Absolute LAB VIMAL(LOINC 0.09-1.40 10 3/mcL ) Monocyte, 0.50 Absolute LAB AEOS(LOINC 0.00-0.65 10 3/mcL ) Eosinophil, 0.10 Absolute LAB ABAS(LOINC 0.00-0.27 10 3/mcL ) Basophil, 0.00 Absolute Performed By: #### CBC, ADIFF, ANEU, RFP, GFR, APTT, PRO #### [place] [address] .NEUABS Collected: 06/20/2017 Status: F [facility]06 AM [facility] REPOSITORY TYPE CODE TESTS RESULT OUT OF REFERENCE UNITS RANGE LAB ANEU(LOINC) 2.25-8.10 10 3/mcL Low Neutrophil, 2.00 Absolute Performed By: #### CBC, ADIFF, ANEU, RFP, GFR, APTT, PRO #### [place] [address] RFP Collected: 06/20/2017 Status: F [facility]:06 AM [facility] REPOSITORY TYPE CODE TESTS RESULT OUT OF REFERENCE UNITS RANGE LAB GLU(LOINC) 82-115 mg/dL Glucose Level 82 LAB NA(LOINC) 136-145 mEq/L Low Sodium Level 133 LAB K(LOINC) 3.5-5.0 mEq/L Potassium Level 4.1 LAB CL(LOINC) 98-110 mEq/L Low Chloride 94 LAB CO2(LOINC) 22-32 mEq/L CO2 31 LAB EBAL(LOINC 4.0-15.0 mEq/L ) Electrolyte Balance 8.0 LAB BUN(LOINC) 8.0-22.0 mg/dL Low BUN 7.0 LAB CRE(LOINC) 0.50-1.20 mg/dL Creatinine Lvl (s) 0.56 LAB BC(LOINC) 10.0-22.0 ratio BUN/Creatinine 12.5 Ratio LAB CA(LOINC) 8.4-10.1 mg/dL Calcium Lvl 9.5 LAB PHOS(LOINC 2.5-4.5 mg/dL ) Phosphorus 4.0 LAB ALB(LOINC) 3.2-4.8 G/dL Albumin Level 3.7 Performed By: #### CBC, ADIFF, ANEU, RFP, GFR, APTT, PRO #### [place] [address] .GFR Collected: 06/20/2017 Status: F [facility] 9[facility]06 AM [facility] REPOSITORY TYPE CODE TESTS RESULT OUT OF REFERENCE UNITS RANGE LAB GFRAA(LOINC ml/min/1.73 ) sqm GFR >60 [place] Result Comment: GFR Population mean for , Non- Americans Ages 20-29 = 116 mL/min/1.73 sq.m. Ages 30-39 = 107 mL/min/1.73 sq.m. Ages 40-49 = 99 mL/min/1.73 sq.m. Ages 50-59 = 93 mL/min/1.73 sq.m. Ages 60-69 = 85 mL/min/1.73 sq.m. Ages 70+ = 75 mL/min/1.73 sq.m. Chronic Kidney Disease: Less than 60 mL/min/1.73 square meters End Stage Renal Disease: Less than 15 mL/min/1.73 square meters LAB GFRNO(LOINC) ml/min/1.73sqm GFR Non- >60 Result Comment: GFR Population mean for , Non- Americans Ages 20-29 = 116 mL/min/1.73 sq.m. Ages 30-39 = 107 mL/min/1.73 sq.m. Ages 40-49 = 99 mL/min/1.73 sq.m. Ages 50-59 = 93 mL/min/1.73 sq.m. Ages 60-69 = 85 mL/min/1.73 sq.m. Ages 70+ = 75 mL/min/1.73 sq.m. Chronic Kidney Disease: Less than 60 mL/min/1.73 square meters End Stage Renal Disease: Less than 15 mL/min/1.73 square meters Performed By: #### CBC, ADIFF, ANEU, RFP, GFR, APTT, PRO #### [address] [address] APTT Collected: 06/20/2017 Status: F [facility]POSIT[facility] TYPE CODE TESTS RESULT OUT OF REFERENCE UNITS RANGE LAB PDOSE(LOIN C) Heparin dose Unknown (APTT) LAB APTT0(LOIN 25.0-35.0 seconds C) APTT 33.4 Result Comment: For Heparin anticoagulation therapy, the recommended therapeutic range is: 54-77 seconds (APTT Correlation with Anti-Xa therapeutic range of 0.3-0.7 units/ml). PLEASE REFERENCE THE PHARMACY PROTOCOL FOR DOSING. Performed By: #### CBC, ADIFF, ANEU, RFP, GFR, APTT, PRO #### [address] [address] PRO Collected: 06/20/2017 Status: F [facility] 9[facility]06 AM [facility] REPOSITORY TYPE CODE TESTS RESULT OUT OF REFERENCE UNITS RANGE LAB PT(LOINC) 9.0-14.5 seconds Protime 11.4 Result Comment: Effective 08/26/07, Protime results may be affected by some antibiotics (i.e. Ciprofloxacin, Azithromycin, Bactrim) which may potentiate the action of oral anticoagulants, with further increases in Protime/INR. LAB INR(LOINC) ratio PT International Ratio 1.0 Result Comment: The [place] [employer] (CHEST, 1992, 102:312S-25S) recommended therapeutic range for oral anticoagulant therapy is: LOW RISK: Prophylaxis of venous thrombosis INR: 2.0-3.0 Treatment of pulmonary embolism 2.0-3.0 Prevention of systemic embolism 2.0-3.0 HIGH RISK: Mechanical prosthetic valves 2.5-3.5 Performed By: #### CBC, ADIFF, ANEU, RFP, GFR, APTT, PRO #### [place] [address] LIPID PANEL, BASIC Collected: 06/05/2017 Status: F Source: [place] 10:21 AM [facility] REPOSITORY TYPE CODE TESTS RESULT OUT OF REFERENCE UNITS RANGE LAB CHOL <200 mg/dL Cholesterol 131 Result Comment: <200 mg/dL, Desirable 200-239 mg/dL, Borderline high >239 mg/dL, High LAB TRIGLY <150 mg/dL Triglyceride 116 Result Comment: <150 mg/dL, Normal 150-199 mg/dL, Borderline high 200-499 mg/dL, High >499 mg/dL, Very high LAB HDL >39 mg/dL HDL-Cholesterol 53 Result Comment: 40-59 mg/dL, Acceptable >59 mg/dL, High: Negative risk factor for coronary heart disease <40 mg/dL, Low: Positive risk factor for coronary heart disease LAB LDL <100 mg/dL LDL-Cholesterol 55 Result Comment: <100 mg/dL, Optimal 100-129 mg/dL, Near optimal/above optimal 130-159 mg/dL, Borderline high 160-189 mg/dL, High >189 mg/dL, Very high Secondary prevention optimal LDL Cholesterol levels are recommended to be < 70 mg/dL LAB NONHDL <130 mg/dL Non HDL Cholesterol 78 Result Comment: <130 mg/dL, Optimal 130-159 mg/dL, Near optimal/above optimal 160-189 mg/dL, Borderline high 190-219 mg/dL, High >219 mg/dL, Very high Secondary prevention optimal non HDL Cholesterol levels are recommended to be < 100 mg/dL LAB FT hrs Fasting Time 1 LAB VLDL <30 mg/dL VLDL Cholesterol 23 LAB TCHDL <5.10 TC:HDL Ratio 2.47 LAB LDLHDL <2.54 LDL:HDL Ratio 1.04 Result Comment: Reference: 1. National Cholesterol Education Program ATP III Guideline At-A-Glance Quick Desk Reference: National Heart, Lung, and Blood [place]. National Institutes of Health. 2001: NIH Publication No. 01-3305. 2. An International Atherosclerosis Society position paper: global recommendations for the management of dyslipidemia: executive summary, Atherosclerosis. 2014: 232(2):410-413. Performed By: #### LIPB #### [facility] [address] [place], [place] [address] CBC AND DIFFERENTIAL Collected: 06/05/2017 Status: F Source: [place] 10:20 AM [facility] REPOSITORY TYPE CODE TESTS RESULT OUT OF REFERENCE UNITS RANGE LAB WBC 3.70-11.00 k/uL WBC 5.76 LAB RBC 3.90-5.20 m/uL Low RBC 3.39 LAB HGB 11.5-15.5 g/dL Low Hemoglobin 10.0 LAB HCT 36.0-46.0 % Low Hematocrit 32.3 LAB MCV 80.0-100.0 fL MCV 95.3 LAB MCH 26.0-34.0 pG MCH 29.5 LAB MCHC 30.5-36.0 g/dL MCHC 31.0 LAB RDWCV 11.5-15.0 % RDW-CV 13.5 LAB PLTCT 150-400 k/uL Platelet Count 293 LAB MPV 9.0-12.7 fL MPV 9.1 LAB ANEUT % Neut% 64.8 LAB AANEUT 1.45-7.50 k/uL Abs Neut 3.73 LAB ALYMP % Lymph% 22.4 LAB AALYMP 1.00-4.00 k/uL Abs Lymph 1.29 LAB AMONO % [place]% 9.0 LAB AAMONO <0.87 k/uL Abs [place] 0.52 LAB AEOS % Eosin% 3.1 LAB AAEOS <0.46 k/uL Abs Eosin 0.18 LAB ABASO % Baso% 0.7 LAB AABASO <0.11 k/uL Abs Baso 0.04 LAB AUNRBC 0 /100 WBC NRBCs 0.0 LAB ABNRBC <0.01 k/uL Absolute nRBC <0.01 LAB DTYP DTYPE Auto Diff Performed By: #### CBCDIF, CMP #### [facility] [address] [place], [place] [address] COMP METABOLIC PANEL Collected: 06/05/2017 Status: F Source: [place] 10:20 AM [facility] REPOSITORY TYPE CODE TESTS RESULT OUT OF REFERENCE UNITS RANGE LAB TP 6.3-8.0 g/dL Protein, Total 7.4 LAB ALB 3.9-4.9 g/dL Albumin 3.9 LAB CA 8.5-10.2 mg/dL Calcium, Total 9.3 LAB TBIL 0.2-1.3 mg/dL Bilirubin, Total 0.3 LAB ALKP 32-117 U/L Alkaline High Phosphatase 125 LAB AST 13-35 U/L AST 19 LAB GLU 74-99 mg/dL Glucose 78 Result Comment: The [place] Diabetes Association (ADA) provides guidance for cutoff values for fasting glucose and random glucose. The ADA defines fasting as no caloric intake for at least 8 hours. Fas ting plasma glucose results between 100 to 125 mg/dL indicate increased risk for diabetes (prediabetes). Fasting plasma glucose results greater than or equal to 126 mg/dL meet the criteria for diagnosis of diabetes. In the absence of unequivocal hyperglycemia, results should be confirmed by repeat testing. In a patient with classic symptoms of hyperglycemia or hyperglycemic crisis, random plasma glucose results greater than or equal to 200 mg/dL meet the criteria for diagnosis of diabetes. Reference: Standards of Medical Care in Diabetes 2016, [place] Diabetes Association. Diabetes Care. 2016.39(Suppl 1). LAB BUN 7-21 mg/dL BUN 8 LAB CRET 0.58-0.96 mg/dL Creatinine 0.64 LAB NA 136-144 mmol/L Low Sodium 126 LAB K 3.7-5.1 mmol/L Potassium 4.7 LAB CL 97-105 mmol/L Low Chloride 86 LAB CO2 22-30 mmol/L CO2 High 32 LAB AGAP 9-18 mmol/L Low Anion Gap 8 LAB ALT 7-38 U/L ALT 15 LAB GFRAA eGFR- Amer. >60 LAB GFRNAA . eGFR-All Other Races >60 Result Comment: eGFR (Estimated GFR) Units of measure: mL/min/1.73 meters squared eGFR is derived from the reexpressed MDRD Study equation using the following parameters: serum creatinine, age, gender and race. The creatinine assay has been calibrated to be traceable to IDMS. An eGFR <60 mL/min/1.73m2 for >3 months is consistent with chronic kidney disease. Refer to KDOQI guidelines for clinical interpretation. In patients with unstable renal function, e.g. those with acute kidney injury, the eGFR may not accurately reflect actual GFR. Performed By: #### CBCDIF, CMP #### [facility] [address] [place], [place] [address] PROGRESS Observed: 06/04/2017 Status: COMPLETED Source: [place] 9:55 AM [facility] REPOSITORY HNO ID: [id number] Author: Soha Caraballo Service: (none) Author Type: Registered Nurse Type: Progress Notes Filed: 06/04/2017 11:00 AM Note Text: TRANSITION CARE MANAGEMENT (TCM) FOLLOW-UP NOTE Provider Action/FYI Clarified med with pt and nurse. [facility] Gan[facility] Patient identified by name and date of : YES Spoke to Kayla HH nurse and pt in background Summary: Pt DOES have and has been taking Plavix as well as Xarelto. Will clean list when comes for appt with Ganta /. Concerns: Pt takes medications randomly and per her choice. Explained importance of taking Xarelto and Plavix due to surgery. 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 06/18 Signature Soha Caraballo head of mobile [employer] Internal Medicine [facility] June 04, 2017 DYANATOMIKAEL Observed: 06/04/2017 Status: COMPLETED Source: [place] 12:00 AM [facility] REPOSITORY Patient Outreach (INTMWS) BOB BENNETTTOSHA Lee ([id number]) [address] [facility] Date Time Provider Department 06/04/17 SOHA VU During your visit today, we recorded the following information about you: Soha Gordon RN 06/04/2017 11:00 AM Signed TRANSITION CARE MANAGEMENT (TCM) FOLLOW-UP NOTE Provider Action/FYI Clarified med with pt and nurse. Will clean list at [facility] with [facility] 06/18 Patient identified by name and date of : YES Spoke to Kayla nurse and pt in background Summary: Pt DOES have and has been taking Plavix as well as Xarelto. Will clean list when comes for appt with Ganta 06/18. Concerns: Pt takes medications randomly and per her choice. Explained importance of taking Xarelto and Plavix due to surgery. 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 06/18 Signature Soha Caraballo head of mobile [employer] Internal Medicine [facility] June 04, 2017 Allergies As of Date: 06/04/2017 Noted Allergy Reaction CYCLOBENZAPRINE 08/05/2016 11 - Vomiting DULOXETINE 12/24/2016 11 - Vomiting LORAZEPAM 12/24/2016 11 - Vomiting LYRICA (PREGABALIN) 04/29/2012 5 - Intolerance Comments: Foggy feeling PINEAPPLE 11/24/2013 4 - Hives Comments: Mouth breaks out, swelling SEASONAL ALLERGIES 05/17/2010 14 - Other: See Comments Comments: nasal congestion and eyes itch, water and burn SERTRALINE HCL 12/24/2016 1 - Mental Status Change Comments: makes me crazy SULFA (SULFONAMIDE ANTIBIOTICS) 10/16/2011 4 - Hives Date Reviewed: 06/03/2017 Reviewed by: Deyanira Griffin MA - Fully Assessed 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 [3610] Prescriptions as of 06/04/2017 Sig: HYDROCODONE 5 MG-ACETAMINOPHE* Take 5-325 tablets by mouth e* XARELTO 20 MG TABLET Take 20 mg by mouth once ghada* LINACLOTIDE 290 MCG CAPSULE Take 1 capsule by mouth once * TRAZODONE 50 MG TABLET Take 1 tablet by mouth daily * PANTOPRAZOLE 40 MG TABLET,DEL* Take 1 tablet by mouth once d* ATORVASTATIN 20 MG TABLET CLOPIDOGREL 75 MG TABLET ONDANSETRON 4 MG DISINTEGRATI* Take 1 tablet by mouth every * PROMETHAZINE 25 MG TABLET Take 1 tablet by mouth every * ALBUTEROL SULFATE HFA 90 MCG/* Inhale 2 Puffs as instructed * CITALOPRAM 20 MG TABLET Take 1 tablet by mouth once d* GABAPENTIN 800 MG TABLET Take 1 tablet by mouth three * MONTELUKAST 10 MG TABLET Take 1 tablet by mouth daily * COMPOUNDED PRESCRIPTION Walker with wheels in the fro* COMPOUNDED PRESCRIPTION Ensure Clear. 237 ml twice d* COMPOUNDED PRESCRIPTION ensure chocolate twice daily * COMPOUNDED PRESCRIPTION 1.Attends discreet underwear * FOOD SUPPLEMENT, LACTOSE-REDU* Take 237 mL by mouth twice da* FENTANYL 12 MCG/HR TRANSDERMA* Apply 1 Patch as directed ez* DULOXETINE 30 MG CAPSULE,EDEL* Take 60 mg by mouth once ghada* ALBUTEROL SULFATE HFA 90 MCG/* Inhale 2 Puffs as instructed * ALBUTEROL SULFATE 2.5 MG/3 ML* Use 3 mL via nebulizer every * BUDESONIDE 0.5 MG/2 ML SUSPEN* Use 2 mL via nebulizer twice * SODIUM CHLORIDE 1 GRAM TABLET Take 1 tablet by mouth once d* COMPOUNDED PRESCRIPTION Mobile chair LISINOPRIL 10 MG TABLET Take 1 tablet by mouth once d* LEVETIRACETAM 750 MG TABLET Take 1 tablet by mouth twice * COMPOUNDED PRESCRIPTION Hospital bed No: 1 FERROUS SULFATE 325 MG (65 MG* Take 1 tablet by mouth twice * METOPROLOL TARTRATE 50 MG TAB* Take 1 tablet by mouth three * IPRATROPIUM-ALBUTEROL 0.5 MG-* Inhale 3 mL as instructed fou* COMPOUNDED PRESCRIPTION Empi 4 Lead TENS Unit Dx: M5* COMPOUNDED PRESCRIPTION Shower bars: Re: gait inst* COMPOUNDED PRESCRIPTION PHYSICAL THERAPY for the back* DABIGATRAN ETEXILATE 150 MG C* Take 1 capsule by mouth twice* BLOOD-GLUCOSE METER KIT 1 Each as needed. BLOOD SUGAR DIAGNOSTIC STRIPS Use as instructed LANCETS Use as instructed Problem List As Of Date 06/04/2017 Noted Resolved Low sodium levels [E87.1] INVALID FOR*02/22/2015 HTN (hypertension) [I10] INVALID FOR* Priority: C More... Atrial fibrillation [I48.91] INVALID FOR* Priority: C More... Syncope [R55] INVALID FOR*02/22/2015 Diarrhea [R19.7] INVALID FOR*02/22/2015 Nausea with vomiting [R11.2] INVALID FOR*02/22/2015 Acute gastritis without mention of hemorrhage [*INVALID FOR*02/22/2015 Sleeping difficulty [G47.9] INVALID FOR*02/22/2015 Depression [F32.9] INVALID FOR* More... Polyarthralgia [M25.50] INVALID FOR* Anxiety [F41.9] INVALID FOR* More... Renal artery stenosis [I70.1] INVALID FOR* More... End stage COPD (HCC) [J44.9] Priority: B More... OA (osteoarthritis) of knee [M17.10] INVALID FOR* TIA (transient ischemic attack) [G45.9] INVALID FOR* Pelvis fracture (HCC) [S32.9XXA] INVALID FOR*02/22/2015 Unequal leg length (acquired) [M21.70] INVALID FOR* Osteoporosis [M81.0] INVALID FOR* More... Peripheral arterial disease [I73.9] INVALID FOR* Priority: B More... Chronic mesenteric ischemia (HCC) [K55.1] INVALID FOR* Priority: A More... Post-op pain [G89.18] INVALID FOR* Priority: D More... Intravascular volume depletion [E86.1] INVALID FOR*03/08/2013 Priority: F More... Nausea [R11.0] INVALID FOR*03/07/2013 Priority: G More... Atelectasis [J98.11] INVALID FOR*03/24/2015 Priority: D More... Difficult intravenous access [Z78.9] INVALID FOR* Priority: D More... Volume overload [E87.70] INVALID FOR* Priority: F More... Severe malnutrition (HCC) [E43] INVALID FOR* Priority: B More... Hyponatremia [E87.1] INVALID FOR* Priority: B More... Peripheral artery disease (HCC) [I73.9] INVALID FOR* Priority: A More... Neurological complaint [R29.90] INVALID FOR* More... Critical lower limb ischemia [I99.8] INVALID FOR* More... DM (diabetes mellitus), type 2 with peripheral *INVALID FOR* Priority: E More... Hypotension, unspecified [I95.9] INVALID FOR*03/24/2015 Priority: D More... Tobacco abuse disorder [Z72.0] INVALID FOR*08/25/2016 Priority: B More... ASO (arteriosclerosis obliterans) [I70.90] INVALID FOR*03/23/2015 On mechanically assisted ventilation (HCC) [Z99*INVALID FOR*03/24/2015 More... CAD (coronary artery disease) [I25.10] INVALID FOR* Priority: C More... Postoperative infection [T81.4XXA] INVALID FOR*07/24/2016 Priority: A More... Ischemia of foot [I99.8] INVALID FOR* Seizures (HCC) [R56.9] INVALID FOR* Dizziness [R42] INVALID FOR* Confusion [R41.0] INVALID FOR* SIADH (syndrome of inappropriate ADH production*INVALID FOR* More... 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] INVALID FOR* Encounter Status:Closed by SOHA CARABALLO on 06/04/17 AKI Observed: 06/04/2017 Status: COMPLETED Source: [place] 12:00 AM [facility] REPOSITORY Patient Outreach ([facility]) TOSHA ALVARADO ([id number]) 1950 F CHT Date Time Provider Department 06/04/17 PAULETTE MALLOY [facility] During your visit today, we recorded the following information about you: Allergies As of Date: 06/04/2017 Noted Allergy Reaction CYCLOBENZAPRINE 08/05/2016 11 - Vomiting DULOXETINE 12/24/2016 11 - Vomiting LORAZEPAM 12/24/2016 11 - Vomiting LYRICA (PREGABALIN) 04/29/2012 5 - Intolerance Comments: Foggy feeling PINEAPPLE 11/24/2013 4 - Hives Comments: Mouth breaks out, swelling SEASONAL ALLERGIES 05/17/2010 14 - Other: See Comments Comments: nasal congestion and eyes itch, water and burn SERTRALINE HCL 12/24/2016 1 - Mental Status Change Comments: makes me crazy SULFA (SULFONAMIDE ANTIBIOTICS) 10/16/2011 4 - Hives Date Reviewed: 06/03/2017 Reviewed by: Deyanira Spencer) VERN Griffin - Fully Assessed Visit Diagnosis:Medication management [Z79.899] Order(s):LIPID PANEL BASIC [SQLIPB] Order #: [id number] FUTURE Prescriptions as of 06/04/2017 Sig: X IPRATROPIUM-ALBUTEROL 0.5 MG-* Inhale 3 mL as instructed fou* LINACLOTIDE 290 MCG CAPSULE Take 1 capsule by mouth once * ATORVASTATIN 20 MG TABLET X HYDROCODONE 5 MG-ACETAMINOPHE* Take 5-325 tablets by mouth e* X XARELTO 20 MG TABLET Take 20 mg by mouth once ghada* X TRAZODONE 50 MG TABLET Take 1 tablet by mouth daily * X PANTOPRAZOLE 40 MG TABLET,DEL* Take 1 tablet by mouth once d* X CLOPIDOGREL 75 MG TABLET ONDANSETRON 4 MG DISINTEGRATI* Take 1 tablet by mouth every * COMPOUNDED PRESCRIPTION Walker with wheels in the fro* COMPOUNDED PRESCRIPTION Ensure Clear. 237 ml twice d* COMPOUNDED PRESCRIPTION ensure chocolate twice daily * ALBUTEROL SULFATE HFA 90 MCG/* Inhale 2 Puffs as instructed * X PROMETHAZINE 25 MG TABLET Take 1 tablet by mouth every * X CITALOPRAM 20 MG TABLET Take 1 tablet by mouth once d* COMPOUNDED PRESCRIPTION 1.Attends discreet underwear * FOOD SUPPLEMENT, LACTOSE-REDU* Take 237 mL by mouth twice da* X GABAPENTIN 800 MG TABLET Take 1 tablet by mouth three * X MONTELUKAST 10 MG TABLET Take 1 tablet by mouth daily * X FENTANYL 12 MCG/HR TRANSDERMA* Apply 1 Patch as directed ez* X DULOXETINE 30 MG CAPSULE,EDEL* Take 60 mg by mouth once ghada* X ALBUTEROL SULFATE HFA 90 MCG/* Inhale 2 Puffs as instructed * X ALBUTEROL SULFATE 2.5 MG/3 ML* Use 3 mL via nebulizer every * X BUDESONIDE 0.5 MG/2 ML SUSPEN* Use 2 mL via nebulizer twice * X SODIUM CHLORIDE 1 GRAM TABLET Take 1 tablet by mouth once d* COMPOUNDED PRESCRIPTION Mobile chair X LISINOPRIL 10 MG TABLET Take 1 tablet by mouth once d* X LEVETIRACETAM 750 MG TABLET Take 1 tablet by mouth twice * COMPOUNDED PRESCRIPTION Hospital bed No: 1 X FERROUS SULFATE 325 MG (65 MG* Take 1 tablet by mouth twice * X METOPROLOL TARTRATE 50 MG TAB* Take 1 tablet by mouth three * X IPRATROPIUM-ALBUTEROL 0.5 MG-* Inhale 3 mL as instructed fou* COMPOUNDED PRESCRIPTION Empi 4 Lead TENS Unit Dx: M5* COMPOUNDED PRESCRIPTION Shower bars: Re: gait inst* COMPOUNDED PRESCRIPTION PHYSICAL THERAPY for the back* X DABIGATRAN ETEXILATE 150 MG C* Take 1 capsule by mouth twice* BLOOD-GLUCOSE METER KIT 1 Each as needed. BLOOD SUGAR DIAGNOSTIC STRIPS Use as instructed LANCETS Use as instructed Problem List As Of Date 06/04/2017 Noted Resolved Low sodium levels [E87.1] INVALID FOR*02/22/2015 HTN (hypertension) [I10] INVALID FOR* Priority: C More... Atrial fibrillation [I48.91] INVALID FOR* Priority: C More... Syncope [R55] INVALID FOR*02/22/2015 Diarrhea [R19.7] INVALID FOR*02/22/2015 Nausea with vomiting [R11.2] INVALID FOR*02/22/2015 Acute gastritis without mention of hemorrhage [*INVALID FOR*02/22/2015 Sleeping difficulty [G47.9] INVALID FOR*02/22/2015 Depression [F32.9] INVALID FOR* More... Polyarthralgia [M25.50] INVALID FOR* Anxiety [F41.9] INVALID FOR* More... Renal artery stenosis [I70.1] INVALID FOR* More... End stage COPD (HCC) [J44.9] Priority: B More... OA (osteoarthritis) of knee [M17.10] INVALID FOR* TIA (transient ischemic attack) [G45.9] INVALID FOR* Pelvis fracture (HCC) [S32.9XXA] INVALID FOR*02/22/2015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 diagnosis) Completed by [facility] On ASA, statin, Xarelto and Plavix Has appt coming up June 5. 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 2. RUQ abdominal pain - ICD9: 789.01, ICD10: R10.11 Resume protonix - US ABD RT UPPER QUADRANT - CBC + DIFF - COMP METABOLIC PANEL - PANTOPRAZOLE 40 MG TABLET,DELAYED RELEASE 3. Chronic constipation - ICD9: 564.00, ICD10: K59.09 Currently controlledContinue with linzess. - LINACLOTIDE 290 MCG CAPSULE 4. Insomnia, unspecified type - ICD9: 780.52, ICD10: G47.00 - TRAZODONE 50 MG TABLET Advised to go to ER if develops chest pain, shortness of breath, or severe worsening of symptoms. Discussed risks, benefits, alternatives, and potential side effects of medications. Bob Bennett expressed understanding and agreed with the plan. Kriss Katz APRN.[facility] Observed: 06/03/2017 Status: COMPLETED Source: [place] 12:00 AM [facility] Patient Update (INTMWS) TOSHA ALVARADO ([id number]) 1950 F T Date Time Provider Department 06/03/17 KRISS KATZ ([employer]) INTMWS During your visit today, we recorded the following information about you: Kriss Katz APRN.CNS 06/03/2017 8:51 AM Signed Mar [address] of the abdominal aorta and bilateral lower extremities that showed extensive atherosclerotic health conditions in the distal abdominal aorta extending to the common iliac arteries. Presence of stents extending from the distal abdominal aorta to the common femoral arteries bilaterally. Patent right superficial femoral artery to the level of the popliteal artery was scattered areas moderate stenosis and calcification of the levels popliteal artery. The distal left superficial femoral artery at the level of the ductus canal was not definitely identified however it appears to be reconstituted distally with moderate stenosis and calcification with level of the knee. 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 Good flow into the common femoral artery with very large profunda. Common femoral artery imaging from profunda down shows extensive collaterals overfilling the anterior tibial in the upper part With good flow down into the foot. This appears to be the main runoff. Plan was to redo left femoral or left responded to mid anterior tibial artery bypass with a cadaver vein. April 17, [address] Millan. Stress testing was advised. Noted to be low risk for Atrovent. April 21, 2017 [facility] Emergency department visit for left great toe and left fourth toe pain. There did have a start on the fourth toe. Discussed arterial occlusion. X-ray with nothing acute. Treated with Clarkson and Augmentin. Impression vascular insufficiency involving the left leg, long-standing with dry gangrene lesions to the toes. Chest x-ray showed persistent moderate volume overload bilateral pleural effusions mild cardiomegaly. May 10, 2017 [facility] dobutamine stress test negative for ischemia at 92% of maximal predicted heart rate, 1 MET. May 16 2017 [facility] visit for foot pain due to arterial insufficiency. Allergies As of Date: 06/03/2017 Noted Allergy Reaction CYCLOBENZAPRINE 08/05/2016 11 - Vomiting DULOXETINE 12/24/2016 11 - Vomiting LORAZEPAM 12/24/2016 11 - Vomiting LYRICA (PREGABALIN) 04/29/2012 5 - Intolerance Comments: Foggy feeling PINEAPPLE 11/24/2013 4 - Hives Comments: Mouth breaks out, swelling SEASONAL ALLERGIES 05/17/2010 14 - Other: See Comments Comments: nasal congestion and eyes itch, water and burn SERTRALINE HCL 12/24/2016 1 - Mental Status Change Comments: makes me crazy SULFA (SULFONAMIDE ANTIBIOTICS) 10/16/2011 4 - Hives Date Reviewed: 03/21/2017 Reviewed by: Beverly Bateman LPN - Fully Assessed Prescriptions as of 06/03/2017 Sig: ONDANSETRON 4 MG DISINTEGRATI* Take 1 tablet by mouth every * TRAZODONE 50 MG TABLET Take 1 tablet by mouth daily * PROMETHAZINE 25 MG TABLET Take 1 tablet by mouth every * COMPOUNDED PRESCRIPTION Walker with wheels in the fro* COMPOUNDED PRESCRIPTION Ensure Clear. 237 ml twice d* COMPOUNDED PRESCRIPTION ensure chocolate twice daily * ALBUTEROL SULFATE HFA 90 MCG/* Inhale 2 Puffs as instructed * CITALOPRAM 20 MG TABLET Take 1 tablet by mouth once d* LINACLOTIDE 290 MCG CAPSULE Take 1 capsule by mouth once * GABAPENTIN 800 MG TABLET Take 1 tablet by mouth three * MONTELUKAST 10 MG TABLET Take 1 tablet by mouth daily * COMPOUNDED PRESCRIPTION 1.Attends discreet underwear * FOOD SUPPLEMENT, LACTOSE-REDU* Take 237 mL by mouth twice da* FENTANYL 12 MCG/HR TRANSDERMA* Apply 1 Patch as directed ez* DULOXETINE 30 MG CAPSULE,EDEL* Take 60 mg by mouth once ghada* ALBUTEROL SULFATE HFA 90 MCG/* Inhale 2 Puffs as instructed * ALBUTEROL SULFATE 2.5 MG/3 ML* Use 3 mL via nebulizer every * BUDESONIDE 0.5 MG/2 ML SUSPEN* Use 2 mL via nebulizer twice * SODIUM CHLORIDE 1 GRAM TABLET Take 1 tablet by mouth once d* COMPOUNDED PRESCRIPTION Mobile chair LISINOPRIL 10 MG TABLET Take 1 tablet by mouth once d* LEVETIRACETAM 750 MG TABLET Take 1 tablet by mouth twice * COMPOUNDED PRESCRIPTION Hospital bed No: 1 FERROUS SULFATE 325 MG (65 MG* Take 1 tablet by mouth twice * PANTOPRAZOLE 40 MG TABLET,DEL* Take 1 tablet by mouth once d* OXYCODONE 5 MG TABLET Take 5 mg by mouth every 8 ho* METOPROLOL TARTRATE 50 MG TAB* Take 1 tablet by mouth three * IPRATROPIUM-ALBUTEROL 0.5 MG-* Inhale 3 mL as instructed fou* COMPOUNDED PRESCRIPTION Empi 4 Lead TENS Unit Dx: M5* COMPOUNDED PRESCRIPTION Shower bars: Re: gait inst* COMPOUNDED PRESCRIPTION PHYSICAL THERAPY for the back* DABIGATRAN ETEXILATE 150 MG C* Take 1 capsule by mouth twice* BLOOD-GLUCOSE METER KIT 1 Each as needed. BLOOD SUGAR DIAGNOSTIC STRIPS Use as instructed LANCETS Use as instructed Problem List As Of Date 06/03/2017 Noted Resolved Low sodium levels [E87.1] INVALID FOR*02/22/2015 HTN (hypertension) [I10] INVALID FOR* Priority: C More... Atrial fibrillation [I48.91] INVALID FOR* Priority: C More... Syncope [R55] INVALID FOR*02/22/2015 Diarrhea [R19.7] INVALID FOR*02/22/2015 Nausea with vomiting [R11.2] INVALID FOR*02/22/2015 Acute gastritis without mention of hemorrhage [*INVALID FOR*02/22/2015 Sleeping difficulty [G47.9] INVALID FOR*02/22/2015 Depression [F32.9] INVALID FOR* More... Polyarthralgia [M25.50] INVALID FOR* Anxiety [F41.9] INVALID FOR* More... Renal artery stenosis [I70.1] INVALID FOR* More... End stage COPD (HCC) [J44.9] Priority: B More... OA (osteoarthritis) of knee [M17.10] INVALID FOR* TIA (transient ischemic attack) [G45.9] INVALID FOR* Pelvis fracture (HCC) [S32.9XXA] INVALID FOR*02/22/2015 Unequal leg length (acquired) [M21.70] INVALID FOR* Osteoporosis [M81.0] INVALID FOR* More... Peripheral arterial disease [I73.9] INVALID FOR* Priority: B More... Chronic mesenteric ischemia (HCC) [K55.1] INVALID FOR* Priority: A More... Post-op pain [G89.18] INVALID FOR* Priority: D More... Intravascular volume depletion [E86.1] INVALID FOR*03/08/2013 Priority: F More... Nausea [R11.0] INVALID FOR*03/07/2013 Priority: G More... Atelectasis [J98.11] INVALID FOR*03/24/2015 Priority: D More... Difficult intravenous access [Z78.9] INVALID FOR* Priority: D More... Volume overload [E87.70] INVALID FOR* Priority: F More... Severe malnutrition (HCC) [E43] INVALID FOR* Priority: B More... Hyponatremia [E87.1] INVALID FOR* Priority: B More... Peripheral artery disease (HCC) [I73.9] INVALID FOR* Priority: A More... Neurological complaint [R29.90] INVALID FOR* More... Critical lower limb ischemia [I99.8] INVALID FOR* More... DM (diabetes mellitus), type 2 with peripheral *INVALID FOR* Priority: E More... Hypotension, unspecified [I95.9] INVALID FOR*03/24/2015 Priority: D More... Tobacco abuse disorder [Z72.0] INVALID FOR*08/25/2016 Priority: B More... ASO (arteriosclerosis obliterans) [I70.90] INVALID FOR*03/23/2015 On mechanically assisted ventilation (HCC) [Z99*INVALID FOR*03/24/2015 More... CAD (coronary artery disease) [I25.10] INVALID FOR* Priority: C More... Postoperative infection [T81.4XXA] INVALID FOR*07/24/2016 Priority: A More... Ischemia of foot [I99.8] INVALID FOR* Seizures (HCC) [R56.9] INVALID FOR* Dizziness [R42] INVALID FOR* Confusion [R41.0] INVALID FOR* SIADH (syndrome of inappropriate ADH production*INVALID FOR* More... 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 SBO (small bowel obstruction) [K56.609] INVALID FOR* Severe protein-calorie malnutrition (HCC) [E43] INVALID FOR* Encounter Status:Closed by KRISS HAWKINS on 06/03/17 [facility]CO Observed: 06/03/2017 Status: COMPLETED Source: [place] 12:00 AM [facility] Letter Text [facility] Authorization for the Release of Medical Information I hereby adelita permission for the release of medical information relating to my care to the parties named here: REQUEST FROM: SEND TO: /Maciej/Dept.__Internal Medicine [facility] [place], [place] [address] The purpose of this release is for the continuing care and treatment of this patient by the [facility]. I specify that this release include: Discharge Summary Operative Reports Radiology Reports/Forms Pathology Reports Laboratory Reports x All Medical Reports Cardiac Reports Drug, Alcohol, Psychiatric Information __ This authorization specifically pertains to information related to my treatment which occurred on: __ To assist in identification and location of my records, I am providing the following; Name [facility] ID# Address Date Social Security# THIS AUTHORIZATION FOR RELEASE OF INFORMATION WILL 60 DAYS AFTER THE DATE SIGNED AND IS SUBJECT TO WRITTEN REVOCATION AT ANY TIME PRIOR TO THE EXPIRATION EXCEPT TO THE EXTENT THAT ACTION HAS BEEN TAKEN IN RELIANCE THEREON. Signature of Patient or Legal Guardian: Date: Relationship if other than Patient: This authorization complies with 42CRF Part 2 AKI Observed: 06/03/2017 Status: COMPLETED Source: [place] 12:00 AM [facility] Patient Outreach (INTMWS) TOSHA ALVARADO ([id number]) 1950 [place] Date Time Provider Department 06/03/17 SOHA VU During your visit today, we recorded the following information about you: Soha Gordon RN 06/03/2017 4:21 PM Signed PRIMARY CARE COORDINATION IN OFFICE VISIT WITH PCP Patient has been identified by name and date of . PCP Assessment/Plan: Reviewed PCP plan with patient using [employer] Tried to reconcile meds with [employer] and pt and pt adamant she is NOT taking Plavix ANDquot;I know what I'm taking!!ANDquot; and becomes angry and tearful when questioned further about it. I called [facility] and [facility] stated it was picked up 05/25 but she remains steadfast she is NOT taking it but also insists she is to take Pradaxa even after explanation that Xarelto has replaced it. She is apparently not taking a number of her meds. 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 She states she is not taking Lipitor, but says she takes something else for chol, but no records of it with [facility]. PCC Plan of Care: Patient concerns: C/O RUQ pain, US ordered and will be set up. She also like Dr Brayden Paulino but had seen Monty since thought Johann was leaving, but wants appt with [facility]. She has F/U 06/[address] Malloy she will keep. Patient goals: Has new Scooter she received prior to but now battery won't charge. She inquires what to do. Recc she contact company from whom she received it. Also needs shorter walker due to Osteoporosis. Recc she go to [facility] for their selection. PCC Interventions: Appts- HEBER DURAN, Dr Paulino. Next Office Visit: 06/18/2017 Plan For Next Call: Will call with planned appt dates. Called with Birdie DURAN for [facility], Dr Jose Qureshi 07/11 10:00am. Soha Caraballo RN Ambulatory Light Rail Vehicle Operator Internal Medicine [facility] June 03, 2017 Soha Gordon RN 06/03/2017 4:21 PM Signed Pt called me back and confirmed she IS taking atorvastatin. Discussed with her that her brother picked up the Plavix on 05/25 at . I spoke with [facility] that filled the Rx and handed it to him. She states he never gave it to her and she will question him when he returns home. Apologetic for her behavior in the office earlier. Allergies As of Date: 06/03/2017 Noted Allergy Reaction CYCLOBENZAPRINE 08/05/2016 11 - Vomiting DULOXETINE 12/24/2016 11 - Vomiting LORAZEPAM 12/24/2016 11 - Vomiting LYRICA (PREGABALIN) 04/29/2012 5 - Intolerance Comments: Foggy feeling PINEAPPLE 11/24/2013 4 - Hives Comments: Mouth breaks out, swelling SEASONAL ALLERGIES 05/17/2010 14 - Other: See Comments Comments: nasal congestion and eyes itch, water and burn SERTRALINE HCL 12/24/2016 1 - Mental Status Change Comments: makes me crazy SULFA (SULFONAMIDE ANTIBIOTICS) 10/16/2011 4 - Hives Date Reviewed: 06/03/2017 Reviewed by: Deyanira Spencer) VERN Griffin - Fully Assessed 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 [3610] Prescriptions as of 06/03/2017 Sig: ATORVASTATIN 20 MG TABLET HYDROCODONE 5 MG-ACETAMINOPHE* Take 5-325 tablets by mouth e* XARELTO 20 MG TABLET Take 20 mg by mouth once ghada* LINACLOTIDE 290 MCG CAPSULE Take 1 capsule by mouth once * TRAZODONE 50 MG TABLET Take 1 tablet by mouth daily * PANTOPRAZOLE 40 MG TABLET,DEL* Take 1 tablet by mouth once d* CLOPIDOGREL 75 MG TABLET ONDANSETRON 4 MG DISINTEGRATI* Take 1 tablet by mouth every * PROMETHAZINE 25 MG TABLET Take 1 tablet by mouth every * COMPOUNDED PRESCRIPTION Walker with wheels in the fro* COMPOUNDED PRESCRIPTION Ensure Clear. 237 ml twice d* COMPOUNDED PRESCRIPTION ensure chocolate twice daily * ALBUTEROL SULFATE HFA 90 MCG/* Inhale 2 Puffs as instructed * CITALOPRAM 20 MG TABLET Take 1 tablet by mouth once d* GABAPENTIN 800 MG TABLET Take 1 tablet by mouth three * MONTELUKAST 10 MG TABLET Take 1 tablet by mouth daily * COMPOUNDED PRESCRIPTION 1.Attends discreet underwear * FOOD SUPPLEMENT, LACTOSE-REDU* Take 237 mL by mouth twice da* FENTANYL 12 MCG/HR TRANSDERMA* Apply 1 Patch as directed ez* DULOXETINE 30 MG CAPSULE,EDEL* Take 60 mg by mouth once ghada* ALBUTEROL SULFATE HFA 90 MCG/* Inhale 2 Puffs as instructed * ALBUTEROL SULFATE 2.5 MG/3 ML* Use 3 mL via nebulizer every * BUDESONIDE 0.5 MG/2 ML SUSPEN* Use 2 mL via nebulizer twice * SODIUM CHLORIDE 1 GRAM TABLET Take 1 tablet by mouth once d* COMPOUNDED PRESCRIPTION Mobile chair LISINOPRIL 10 MG TABLET Take 1 tablet by mouth once d* LEVETIRACETAM 750 MG TABLET Take 1 tablet by mouth twice * COMPOUNDED PRESCRIPTION Hospital bed No: 1 FERROUS SULFATE 325 MG (65 MG* Take 1 tablet by mouth twice * METOPROLOL TARTRATE 50 MG TAB* Take 1 tablet by mouth three * IPRATROPIUM-ALBUTEROL 0.5 MG-* Inhale 3 mL as instructed fou* COMPOUNDED PRESCRIPTION Empi 4 Lead TENS Unit Dx: M5* COMPOUNDED PRESCRIPTION Shower bars: Re: gait inst* COMPOUNDED PRESCRIPTION PHYSICAL THERAPY for the back* DABIGATRAN ETEXILATE 150 MG C* Take 1 capsule by mouth twice* BLOOD-GLUCOSE METER KIT 1 Each as needed. BLOOD SUGAR DIAGNOSTIC STRIPS Use as instructed LANCETS Use as instructed Problem List As Of Date 06/03/2017 Noted Resolved Low sodium levels [E87.1] INVALID FOR*02/22/2015 HTN (hypertension) [I10] INVALID FOR* Priority: C More... Atrial fibrillation [I48.91] INVALID FOR* Priority: C More... Syncope [R55] INVALID FOR*02/22/2015 Diarrhea [R19.7] INVALID FOR*02/22/2015 Nausea with vomiting [R11.2] INVALID FOR*02/22/2015 Acute gastritis without mention of hemorrhage [*INVALID FOR*02/22/2015 Sleeping difficulty [G47.9] INVALID FOR*02/22/2015 Depression [F32.9] INVALID FOR* More... Polyarthralgia [M25.50] INVALID FOR* Anxiety [F41.9] INVALID FOR* More... Renal artery stenosis [I70.1] INVALID FOR* More... End stage COPD (HCC) [J44.9] Priority: B More... OA (osteoarthritis) of knee [M17.10] INVALID FOR* TIA (transient ischemic attack) [G45.9] INVALID FOR* Pelvis fracture (HCC) [S32.9XXA] INVALID FOR*02/22/2015 Unequal leg length (acquired) [M21.70] INVALID FOR* Osteoporosis [M81.0] INVALID FOR* More... Peripheral arterial disease [I73.9] INVALID FOR* Priority: B More... Chronic mesenteric ischemia (HCC) [K55.1] INVALID FOR* Priority: A More... Post-op pain [G89.18] INVALID FOR* Priority: D More... Intravascular volume depletion [E86.1] INVALID FOR*03/08/2013 Priority: F More... Nausea [R11.0] INVALID FOR*03/07/2013 Priority: G More... Atelectasis [J98.11] INVALID FOR*03/24/2015 Priority: D More... Difficult intravenous access [Z78.9] INVALID FOR* Priority: D More... Volume overload [E87.70] INVALID FOR* Priority: F More... Severe malnutrition (HCC) [E43] INVALID FOR* Priority: B More... Hyponatremia [E87.1] INVALID FOR* Priority: B More... Peripheral artery disease (HCC) [I73.9] INVALID FOR* Priority: A More... Neurological complaint [R29.90] INVALID FOR* More... Critical lower limb ischemia [I99.8] INVALID FOR* More... DM (diabetes mellitus), type 2 with peripheral *INVALID FOR* Priority: E More... Hypotension, unspecified [I95.9] INVALID FOR*03/24/2015 Priority: D More... Tobacco abuse disorder [Z72.0] INVALID FOR*08/25/2016 Priority: B More... ASO (arteriosclerosis obliterans) [I70.90] INVALID FOR*03/23/2015 On mechanically assisted ventilation (HCC) [Z99*INVALID FOR*03/24/2015 More... CAD (coronary artery disease) [I25.10] INVALID FOR* Priority: C More... Postoperative infection [T81.4XXA] INVALID FOR*07/24/2016 Priority: A More... Ischemia of foot [I99.8] INVALID FOR* Seizures (HCC) [R56.9] INVALID FOR* Dizziness [R42] INVALID FOR* Confusion [R41.0] INVALID FOR* SIADH (syndrome of inappropriate ADH production*INVALID FOR* More... 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 Scheduled f/u appt this week with Home Appliance Technician. Reports nurse changed dressing this morning to groin wound and foot wound (had foot wound prior to surgery). She wants provider office to arrange for her to go to Rehab at [facility]. States her insurance will cover this, and she needs assistance to get around and ADL's. Kriss Katz APRN.EVELIO 05/28/2017 3:03 PM Signed What was her vascular surgery? She needs to have physical therapy at [facility]? I placed a consult, please assist with scheduling this for her. Radha Villatoro RN 05/30/2017 8:58 AM Signed Patient not feeling well last two days, nauseated and cancelled appointment with Kriss morris. Rescheduled to Saturday06/04/17. She will discuss therapy options further at follow up appointment, too weak and ill to go anywhere this week. Nurse Anna from [facility] #[phone], does not know the name of procedure that patient had but that she was ordered Plavix and insurance is requiring a prior authorization for this and they have a call out to surgeon today to address the prior authorization for this medication. Anna also reports that patient previously refused physical therapy in past or has history of starting this and not completing it. No physical therapy was ordered at hospital discharge this time but patient can discuss further at follow up appointment. Radha Katz, AKIKO.ARMY RANGER 05/30/2017 9:54 AM Signed Not sure what is needed here. If she is severely ill should go to ER/hospital to be checked. Surgeon should be ordering and following up with his post operative medications / prior authorization or changing of medication according to her formulary as well as PT. Should have been ordered at discharge. Routing to Tato, may be able to help with this difficult post operative period. Soha Gordon RN 05/30/2017 10:50 AM Signed Spoke w/Anna who did not receive any info from surgeon or hospital. She has been seeing the pt for a long time and just restarted services. She doesn't know surgery done- it sounds like a Fem-pop bypass.. Called pt and she doesn't want to go anywhere now. She just wants rehab in home. Has appt with surgeon on 06/12 and will talk about it then. Had surgery the . She has call into the [facility]'s office. Kriss Katz APRN.ARMY RANGER 05/30/2017 1:44 PM Addendum Noted.Lets see if we can get [facility] records for admission for when she does come in for visit. Allergies As of Date: 05/28/2017 Noted Allergy Reaction CYCLOBENZAPRINE 08/05/2016 11 - Vomiting DULOXETINE 12/24/2016 11 - Vomiting LORAZEPAM 12/24/2016 11 - Vomiting LYRICA (PREGABALIN) 04/29/2012 5 - Intolerance Comments: Foggy feeling PINEAPPLE 11/24/2013 4 - Hives Comments: Mouth breaks out, swelling SEASONAL ALLERGIES 05/17/2010 14 - Other: See Comments Comments: nasal congestion and eyes itch, water and burn SERTRALINE HCL 12/24/2016 1 - Mental Status Change Comments: makes me crazy SULFA (SULFONAMIDE ANTIBIOTICS) 10/16/2011 4 - Hives Date Reviewed: 03/21/2017 Reviewed by: Beverly Bateman LPN - Fully Assessed Reason for Visit: [place] - surgery f/u [Other] Future Appointment [256] Reason For Visit History Recorded Primary Visit Diagnosis:Postoperative state [Z98.890] Other Visit Diagnoses:Decreased ambulation status [R68.89] Decreased activities of daily living (ADL) [R68.89] Order(s):CONSULT TO PHYSICAL THERAPY [9032] Order #: [id number]: 1 PRIMARY CARE SOCIAL WORK CONSULT [6416724] Order #: [id number]: 1 Prescriptions as of 05/28/2017 Sig: ONDANSETRON 4 MG DISINTEGRATI* Take 1 tablet by mouth every * TRAZODONE 50 MG TABLET Take 1 tablet by mouth daily * PROMETHAZINE 25 MG TABLET Take 1 tablet by mouth every * COMPOUNDED PRESCRIPTION Walker with wheels in the fro* COMPOUNDED PRESCRIPTION Ensure Clear. 237 ml twice d* COMPOUNDED PRESCRIPTION ensure chocolate twice daily * ALBUTEROL SULFATE HFA 90 MCG/* Inhale 2 Puffs as instructed * CITALOPRAM 20 MG TABLET Take 1 tablet by mouth once d* LINACLOTIDE 290 MCG CAPSULE Take 1 capsule by mouth once * GABAPENTIN 800 MG TABLET Take 1 tablet by mouth three * MONTELUKAST 10 MG TABLET Take 1 tablet by mouth daily * COMPOUNDED PRESCRIPTION 1.Attends discreet underwear * FOOD SUPPLEMENT, LACTOSE-REDU* Take 237 mL by mouth twice da* FENTANYL 12 MCG/HR TRANSDERMA* Apply 1 Patch as directed ez* DULOXETINE 30 MG CAPSULE,EDEL* Take 60 mg by mouth once ghada* ALBUTEROL SULFATE HFA 90 MCG/* Inhale 2 Puffs as instructed * ALBUTEROL SULFATE 2.5 MG/3 ML* Use 3 mL via nebulizer every * BUDESONIDE 0.5 MG/2 ML SUSPEN* Use 2 mL via nebulizer twice * SODIUM CHLORIDE 1 GRAM TABLET Take 1 tablet by mouth once d* COMPOUNDED PRESCRIPTION Mobile chair LISINOPRIL 10 MG TABLET Take 1 tablet by mouth once d* LEVETIRACETAM 750 MG TABLET Take 1 tablet by mouth twice * COMPOUNDED PRESCRIPTION Hospital bed No: 1 FERROUS SULFATE 325 MG (65 MG* Take 1 tablet by mouth twice * PANTOPRAZOLE 40 MG TABLET,DEL* Take 1 tablet by mouth once d* OXYCODONE 5 MG TABLET Take 5 mg by mouth every 8 ho* METOPROLOL TARTRATE 50 MG TAB* Take 1 tablet by mouth three * IPRATROPIUM-ALBUTEROL 0.5 MG-* Inhale 3 mL as instructed fou* COMPOUNDED PRESCRIPTION Empi 4 Lead TENS Unit Dx: M5* COMPOUNDED PRESCRIPTION Shower bars: Re: gait inst* COMPOUNDED PRESCRIPTION PHYSICAL THERAPY for the back* DABIGATRAN ETEXILATE 150 MG C* Take 1 capsule by mouth twice* BLOOD-GLUCOSE METER KIT 1 Each as needed. BLOOD SUGAR DIAGNOSTIC STRIPS Use as instructed LANCETS Use as instructed Problem List As Of Date 05/28/2017 Noted Resolved Low sodium levels [E87.1] INVALID FOR*02/22/2015 HTN (hypertension) [I10] INVALID FOR* Priority: C More... Atrial fibrillation [I48.91] INVALID FOR* Priority: C More... Syncope [R55] INVALID FOR*02/22/2015 Diarrhea [R19.7] INVALID FOR*02/22/2015 Nausea with vomiting [R11.2] INVALID FOR*02/22/2015 Acute gastritis without mention of hemorrhage [*INVALID FOR*02/22/2015 Sleeping difficulty [G47.9] INVALID FOR*02/22/2015 Depression [F32.9] INVALID FOR* More... Polyarthralgia [M25.50] INVALID FOR* Anxiety [F41.9] INVALID FOR* More... Renal artery stenosis [I70.1] INVALID FOR* More... End stage COPD (HCC) [J44.9] Priority: B More... OA (osteoarthritis) of knee [M17.10] INVALID FOR* TIA (transient ischemic attack) [G45.9] INVALID FOR* Pelvis fracture (HCC) [S32.9XXA] INVALID FOR*02/22/2015 Unequal leg length (acquired) [M21.70] INVALID FOR* Osteoporosis [M81.0] INVALID FOR* More... Peripheral arterial disease [I73.9] INVALID FOR* Priority: B More... Chronic mesenteric ischemia (HCC) [K55.1] INVALID FOR* Priority: A More... Post-op pain [G89.18] INVALID FOR* Priority: D More... Intravascular volume depletion [E86.1] INVALID FOR*03/08/2013 Priority: F More... Nausea [R11.0] INVALID FOR*03/07/2013 Priority: G More... Atelectasis [J98.11] INVALID FOR*03/24/2015 Priority: D More... Difficult intravenous access [Z78.9] INVALID FOR* Priority: D More... Volume overload [E87.70] INVALID FOR* Priority: F More... Severe malnutrition (HCC) [E43] INVALID FOR* Priority: B More... Hyponatremia [E87.1] INVALID FOR* Priority: B More... Peripheral artery disease (HCC) [I73.9] INVALID FOR* Priority: A More... Neurological complaint [R29.90] INVALID FOR* More... Critical lower limb ischemia [I99.8] INVALID FOR* More... DM (diabetes mellitus), type 2 with peripheral *INVALID FOR* Priority: E More... Hypotension, unspecified [I95.9] INVALID FOR*03/24/2015 Priority: D More... Tobacco abuse disorder [Z72.0] INVALID FOR*08/25/2016 Priority: B More... ASO (arteriosclerosis obliterans) [I70.90] INVALID FOR*03/23/2015 On mechanically assisted ventilation (HCC) [Z99*INVALID FOR*03/24/2015 More... CAD (coronary artery disease) [I25.10] INVALID FOR* Priority: C More... Postoperative infection [T81.4XXA] INVALID FOR*07/24/2016 Priority: A More... Ischemia of foot [I99.8] INVALID FOR* Seizures (HCC) [R56.9] INVALID FOR* Dizziness [R42] INVALID FOR* Confusion [R41.0] INVALID FOR* SIADH (syndrome of inappropriate ADH production*INVALID FOR* More... 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 SBO (small bowel obstruction) [K56.609] INVALID FOR* Severe protein-calorie malnutrition (HCC) [E43] INVALID FOR* Encounter Status:Closed by STERLING VILA KRISS on 05/30/17 XR CHEST 1 VIEW Observed: 05/24/2017 Status: F [facility] PM [facility] REPOSITORY ORIGINAL XR CHEST 1 VIEW Upright portable chest at 8:40 PM. CLINICAL STATEMENT: Abnormal breath sounds COMPARISON: Chest radiograph 03/06/2006 FINDINGS: The cardiomediastinal silhouette is within normal limits and unchanged. There is slight elevation of the left hemidiaphragm, with left basilar atelectasis or airspace disease. Linear right bas ilar atelectasis is also seen. No pleural effusion, pneumothorax, or vascular congestion is seen. Multiple remote bilateral rib fractures are noted. IMPRESSION: Mild left basilar atelectasis or consolidation. Linear right basilar atelectasis. I have personally reviewed the images of this examination and agree with the resident's findings and interpretation. Interpreted By: Fiona Humphrey MD Preliminary Report By: Marcelino Villatoro DO Electronically Signed By: Fiona Humphrey MD Dictated Date: 05/24/2017 8:56:00 PM Prelim Date: 05/24/2017 8:58:22 PM Sign Date: 05/24/2017 9:25:49 PM BMP Collected: 05/24/2017 Status: F [facility] 4[facility]10 AM [facility] REPOSITORY TYPE CODE TESTS RESULT OUT OF REFERENCE UNITS RANGE LAB GLU(LOINC) 82-115 mg/dL Glucose High Level 120 LAB NA(LOINC) 136-145 mEq/L Low Sodium Level 132 LAB K(LOINC) 3.5-5.0 mEq/L Potassium Level 4.4 LAB CL(LOINC) 98-110 mEq/L Chloride 99 LAB CO2(LOINC) 22-32 mEq/L CO2 28 LAB EBAL(LOINC 4.0-15.0 mEq/L ) Electrolyte Balance 5.0 LAB BUN(LOINC) 8.0-22.0 mg/dL Low BUN 7.0 LAB CRE(LOINC) 0.50-1.20 mg/dL Creatinine Lvl (s) 0.53 LAB BC(LOINC) 10.0-22.0 ratio BUN/Creatinine 13.2 Ratio LAB CA(LOINC) 8.4-10.1 mg/dL Low Calcium Lvl 7.9 Performed By: #### ROHIT, GFR, CBC, ADIFF, ANEU, LIPID #### [address] [id number] .GFR Collected: 05/24/2017 Status: F [facility] 4:10 AM [facility] REPOSITORY TYPE CODE TESTS RESULT OUT OF REFERENCE UNITS RANGE LAB GFRAA(LOINC ml/min/1.73 ) sqm GFR >60 [place] Result Comment: GFR Population mean for , Non- Americans Ages 20-29 = 116 mL/min/1.73 sq.m. Ages 30-39 = 107 mL/min/1.73 sq.m. Ages 40-49 = 99 mL/min/1.73 sq.m. Ages 50-59 = 93 mL/min/1.73 sq.m. Ages 60-69 = 85 mL/min/1.73 sq.m. Ages 70+ = 75 mL/min/1.73 sq.m. Chronic Kidney Disease: Less than 60 mL/min/1.73 square meters End Stage Renal Disease: Less than 15 mL/min/1.73 square meters LAB GFRNO(LOINC) ml/min/1.73sqm GFR Non- >60 Result Comment: GFR Population mean for , Non- Americans Ages 20-29 = 116 mL/min/1.73 sq.m. Ages 30-39 = 107 mL/min/1.73 sq.m. Ages 40-49 = 99 mL/min/1.73 sq.m. Ages 50-59 = 93 mL/min/1.73 sq.m. Ages 60-69 = 85 mL/min/1.73 sq.m. Ages 70+ = 75 mL/min/1.73 sq.m. Chronic Kidney Disease: Less than 60 mL/min/1.73 square meters End Stage Renal Disease: Less than 15 mL/min/1.73 square meters Performed By: #### BMP, GFR, CBC, ADIFF, ANEU, LIPID #### [address] [id number] CBC Collected: 05/24/2017 Status: F [facility] 4[facility]10 AM [facility] REPOSITORY TYPE CODE TESTS RESULT OUT OF REFERENCE UNITS RANGE LAB WBC(LOINC) 4.50-10.80 10 3/mcL WBC 6.40 LAB RBCCT(LOINC 4.10-5.30 10 6/mcL ) Low RBC 3.05 LAB HGB(LOINC) 12.0-16.0 G/dL Low Hgb 9.2 LAB HCT(LOINC) 34.0-46.0 % Low Hct 26.8 LAB MCV(LOINC) 80.0-99.0 fL MCV 87.7 LAB MCH(LOINC) 27.0-33.0 pg MCH 30.1 LAB MCHC(LOINC) 32.0-36.0 G/dL MCHC 34.3 LAB RDW(LOINC) 11.5-15.5 % RDW 14.3 LAB PLT(LOINC) 150-450 10 3/mcL Low Platelet 112 LAB MPV(LOINC) 6.6-10.5 fL MPV 7.6 Performed By: #### BMP, GFR, CBC, ADIFF, ANEU, LIPID #### [address] [id number] .AUTO DIFF Collected: 05/24/2017 Status: F [facility] 4[facility] AM [facility] TYPE CODE TESTS RESULT OUT OF REFERENCE UNITS RANGE LAB JOSEPH(LOINC) 50.0-75.0 % Neutrophil % 65.9 LAB LYM(LOINC) 20.0-40.0 % Lymphocyte % 21.1 LAB MON(LOINC) 2.0-13.0 % Monocyte % 11.9 LAB EO(LOINC) 0.0-6.0 % Eosinophil % 0.8 LAB BAS(LOINC) 0.0-2.5 % Basophil % 0.3 LAB ABLYM(LOIN 0.90-4.32 10 3/mcL C) Lymphocyte, 1.30 Absolute LAB VIMAL(LOINC 0.09-1.40 10 3/mcL ) Monocyte, 0.80 Absolute LAB AEOS(LOINC 0.00-0.65 10 3/mcL ) Eosinophil, 0.10 Absolute LAB ABAS(LOINC 0.00-0.27 10 3/mcL ) Basophil, 0.00 Absolute Performed By: #### BMP, GFR, CBC, ADIFF, ANEU, LIPID #### [address] [id number] .NEUABS Collected: 05/24/2017 Status: F [facility] 4:10 AM [facility] REPOSITORY TYPE CODE TESTS RESULT OUT OF REFERENCE UNITS RANGE LAB ANEU(LOINC) 2.25-8.10 10 3/mcL Neutrophil, 4.20 Absolute Performed By: #### BMP, GFR, CBC, ADIFF, ANEU, LIPID #### [place] [id number] LIPID Collected: 05/24/2017 Status: F [facility] 4:10 AM [facility] REPOSITORY TYPE CODE TESTS RESULT OUT OF REFERENCE UNITS RANGE LAB CHOL(LOINC 50-199 mg/dL ) Cholesterol 90 Result Comment: Cholesterol Reference Interval: Less than 200 Desirable 200-239 Borderline high risk 240 and above High risk LAB TRIG(LOINC) 3-149 mg/dL Triglycerides 116 Result Comment: Triglyceride Reference Interval: Less than 150 Normal 150-199 Borderline high risk 200-499 High risk 500 or higher Very high risk LAB HD(LOINC) 40-59 mg/dL HDL Cholesterol 46 Result Comment: HDL Reference Interval: Less than 40 Low - high risk 60 or above Optimal/lowers risk LAB LDL(LOINC) 0-129 mg/dL LDL Cholesterol 21 Result Comment: LDL is a calculated result and requires a 12-hr fast. LDL Reference Interval: Less than 100 Optimal 100-129 Near or above optimal 130-159 Borderline high risk 160-189 High risk 190 and above Very high risk Performed By: #### BMP, GFR, CBC, ADIFF, ANEU, LIPID #### [place] [id number] BMP Collected: 05/23/2017 Status: F [facility] 2:38 PM [facility] REPOSITORY TYPE CODE TESTS RESULT OUT OF REFERENCE UNITS RANGE LAB GLU(LOINC) 82-115 mg/dL Glucose Level 103 LAB NA(LOINC) 136-145 mEq/L Sodium Level 137 LAB K(LOINC) 3.5-5.0 mEq/L Potassium Level 4.4 LAB CL(LOINC) 98-110 mEq/L Chloride 102 LAB CO2(LOINC) 22-32 mEq/L CO2 29 LAB EBAL(LOINC 4.0-15.0 mEq/L ) Electrolyte Balance 6.0 LAB BUN(LOINC) 8.0-22.0 mg/dL BUN 12.0 LAB CRE(LOINC) 0.50-1.20 mg/dL Creatinine Lvl (s) 0.56 LAB BC(LOINC) 10.0-22.0 ratio BUN/Creatinine 21.4 Ratio LAB CA(LOINC) 8.4-10.1 mg/dL Calcium Lvl 8.8 Performed By: #### BMP, GFR, CBC, ADIFF, ANEU #### [facility] [address] [place] [address] .GFR Collected: 05/23/2017 Status: F [facility] 2[facility]38 PM [facility] TYPE CODE TESTS RESULT OUT OF REFERENCE UNITS RANGE LAB GFRAA(LOINC ml/min/1.73 ) sqm GFR >60 [place] Result Comment: GFR Population mean for , Non- Americans Ages 20-29 = 116 mL/min/1.73 sq.m. Ages 30-39 = 107 mL/min/1.73 sq.m. Ages 40-49 = 99 mL/min/1.73 sq.m. Ages 50-59 = 93 mL/min/1.73 sq.m. Ages 60-69 = 85 mL/min/1.73 sq.m. Ages 70+ = 75 mL/min/1.73 sq.m. Chronic Kidney Disease: Less than 60 mL/min/1.73 square meters End Stage Renal Disease: Less than 15 mL/min/1.73 square meters LAB GFRNO(LOINC) ml/min/1.73sqm GFR Non- >60 Result Comment: GFR Population mean for , Non- Americans Ages 20-29 = 116 mL/min/1.73 sq.m. Ages 30-39 = 107 mL/min/1.73 sq.m. Ages 40-49 = 99 mL/min/1.73 sq.m. Ages 50-59 = 93 mL/min/1.73 sq.m. Ages 60-69 = 85 mL/min/1.73 sq.m. Ages 70+ = 75 mL/min/1.73 sq.m. Chronic Kidney Disease: Less than 60 mL/min/1.73 square meters End Stage Renal Disease: Less than 15 mL/min/1.73 square meters Performed By: #### BMP, GFR, CBC, ADIFF, ANEU #### [place] [id number] CBC Collected: 05/23/2017 Status: F [facility] 2:38 [facility] REPOSITORY TYPE CODE TESTS RESULT OUT OF REFERENCE UNITS RANGE LAB WBC(LOINC) 4.50-10.80 10 3/mcL WBC 8.10 LAB RBCCT(LOINC 4.10-5.30 10 6/mcL ) Low RBC 3.63 LAB HGB(LOINC) 12.0-16.0 G/dL Low Hgb 10.8 LAB HCT(LOINC) 34.0-46.0 % Low Hct 31.5 LAB MCV(LOINC) 80.0-99.0 fL MCV 86.8 LAB MCH(LOINC) 27.0-33.0 pg MCH 29.8 LAB MCHC(LOINC) 32.0-36.0 G/dL MCHC 34.3 LAB RDW(LOINC) 11.5-15.5 % RDW 14.2 LAB PLT(LOINC) 150-450 10 3/mcL Low Platelet 136 LAB MPV(LOINC) 6.6-10.5 fL MPV 7.6 Performed By: #### BMP, GFR, CBC, ADIFF, ANEU #### [place] [id number] .AUTO DIFF Collected: 05/23/2017 Status: F [facility]: [facility] 2:38 [facility] REPOSITORY TYPE CODE TESTS RESULT OUT OF REFERENCE UNITS RANGE LAB JOSEPH(LOINC) 50.0-75.0 % Neutrophil % 72.4 LAB LYM(LOINC) 20.0-40.0 % Low Lymphocyte % 18.4 LAB MON(LOINC) 2.0-13.0 % Monocyte % 8.0 LAB EO(LOINC) 0.0-6.0 % Eosinophil % 0.7 LAB BAS(LOINC) 0.0-2.5 % Basophil % 0.5 LAB ABLYM(LOIN 0.90-4.32 10 3/mcL C) Lymphocyte, 1.50 Absolute LAB VIMAL(LOINC 0.09-1.40 10 3/mcL ) Monocyte, 0.70 Absolute LAB AEOS(LOINC 0.00-0.65 10 3/mcL ) Eosinophil, 0.10 Absolute LAB ABAS(LOINC 0.00-0.27 10 3/mcL ) Basophil, 0.00 Absolute Performed By: #### BMP, GFR, CBC, ADIFF, ANEU #### [place] [id number] .NEUABS Collected: 05/23/2017 Status: F [facility] 2:38 PM [facility] REPOSITORY TYPE CODE TESTS RESULT OUT OF REFERENCE UNITS RANGE LAB ANEU(LOINC) 2.25-8.10 10 3/mcL Neutrophil, 5.90 Absolute Performed By: #### BMP, GFR, CBC, ADIFF, ANEU #### [place] [address] BGRP Collected: 05/23/2017 Status: F [facility] 12:21 PM [facility] REPOSITORY TYPE CODE TESTS RESULT OUT OF REFERENCE UNITS RANGE LAB PHRP(LOINC 7.380-7.460 ) pH (poct) - POC 7.387 LAB PCORP(LOIN 32.0-46.0 mmHg C) PCO2 - POC 40.8 LAB PO2RP(LOIN 74.0-108.0 mmHg C) PO2 - POC High 258.8 LAB HCORP(LOIN 21.0-29.0 mmol/L C) Bicarbonate - POC 24.0 LAB TCORP(LOIN 22.0-30.0 mmol/L C) Total CO2 - POC 25.2 LAB BERP(LOINC mmol/L ) Base Excess - POC -1.0 LAB O2RP(LOINC 92.0-96.0 % ) O2 High Saturation - POC 99.0 Performed By: #### BGRP, CLRP, HGBRP, GLURP, KRP, HCTRP, NARP, CARP #### [place] [address] CLRP Collected: 05/23/2017 Status: F [facility] 12:21 PM [facility] REPOSITORY TYPE CODE TESTS RESULT OUT OF REFERENCE UNITS RANGE LAB CLRP(LOINC) 98-110 mEq/L Low Chloride - POC 96 Performed By: #### BGRP, CLRP, HGBRP, GLURP, KRP, HCTRP, NARP, CARP #### [place] [address] HGBRP Collected: 05/23/2017 Status: F [facility] 12:21 [facility] REPOSITORY TYPE CODE TESTS RESULT OUT OF REFERENCE UNITS RANGE LAB HGBRP(LOIN 12.0-16.0 G/dL C) Hemoglobin - POC 12.0 Performed By: #### BGRP, CLRP, HGBRP, GLURP, KRP, HCTRP, NARP, CARP #### [place] [address] GLURP Collected: 05/23/2017 Status: F [facility] 12:21 [facility] REPOSITORY TYPE CODE TESTS RESULT OUT OF REFERENCE UNITS RANGE LAB GLURP(LOINC 82-115 mg/dL ) Glucose - POC 95 Performed By: #### BGRP, CLRP, HGBRP, GLURP, KRP, HCTRP, NARP, CARP #### [place] [address] KRP Collected: 05/23/2017 Status: F [facility] 12:21 [facility] REPOSITORY TYPE CODE TESTS RESULT OUT OF REFERENCE UNITS RANGE LAB KRP(LOINC) 3.5-5.0 mEq/L Potassium - POC 4.3 Performed By: #### BGRP, CLRP, HGBRP, GLURP, KRP, HCTRP, NARP, CARP #### [place] [address] HCTRP Collected: 05/23/2017 Status: F [facility] 12:21 [facility] REPOSITORY TYPE CODE TESTS RESULT OUT OF REFERENCE UNITS RANGE LAB HCTRP(LOIN 37.0-47.0 % C) Low Hematocrit - POC 35.0 Performed By: #### BGRP, CLRP, HGBRP, GLURP, KRP, HCTRP, NARP, CARP #### [place] [address] NARP Collected: 05/23/2017 Status: F [facility] 12:21 [facility] REPOSITORY TYPE CODE TESTS RESULT OUT OF REFERENCE UNITS RANGE LAB NARP(LOINC) 136-145 mEq/L Low Sodium - POC 130 Performed By: #### BGRP, CLRP, HGBRP, GLURP, KRP, HCTRP, NARP, CARP #### [place] [address] CARP Collected: 05/23/2017 Status: F [facility] 12:21 PM [facility] REPOSITORY TYPE CODE TESTS RESULT OUT OF REFERENCE UNITS RANGE LAB CARP(LOINC) 1.12-1.32 mmol/L Low Ionized 1.00 Calcium - POC Performed By: #### BGRP, CLRP, HGBRP, GLURP, KRP, HCTRP, NARP, CARP #### [place] [address] RBC (PRODUCT) Collected: 05/23/2017 Status: F [facility] 11:37 AM [facility] REPOSITORY TYPE CODE TESTS RESULT OUT OF REFERENCE UNITS RANGE LAB RBCPR(LOINC ) RBC Product RBC Ready Ready for Pickup Performed By: #### RBCP #### [place] [address] XR FLUORO 1-2 HRS Observed: 05/23/2017 Status: F Source: [place] [employer] TECH TIME 11:30 AM [facility] REPOSITORY ORIGINAL Intraoperative imaging of the LEFT tibia, administrative supervision report: HISTORY: Angiogram supervision. 3 minutes 37 seconds fluoroscopy time. 14.60 milligray dose. 2 digital images were obtained during the procedure. Please see procedure note for details findings. Interpreted By: Surjit Mehta MD Preliminary Report By: Surjit Mehta MD Electronically Signed By: Surjit Mehta MD Dictated Date: 05/24/2017 8:56:29 AM Prelim Date: 05/24/2017 8:56:29 AM Sign Date: 05/24/2017 8:57:07 AM RBC (PRODUCT) Collected: 05/23/2017 Status: F [facility] 11:08 AM [facility] REPOSITORY TYPE CODE TESTS RESULT OUT OF REFERENCE UNITS RANGE LAB RBCPR(LOINC ) RBC Product RBC Ready Ready for Pickup Performed By: #### RBCP #### [place] [id number] BGRP Collected: 05/23/2017 Status: F [facility] AM [facility] REPOSITORY TYPE CODE TESTS RESULT OUT OF REFERENCE UNITS RANGE LAB PHRP(LOINC 7.380-7.460 ) pH (poct) - POC 7.444 LAB PCORP(LOIN 32.0-46.0 mmHg C) PCO2 - POC 37.5 LAB PO2RP(LOIN 74.0-108.0 mmHg C) PO2 - POC High 295.7 LAB HCORP(LOIN 21.0-29.0 mmol/L C) Bicarbonate - POC 25.1 LAB TCORP(LOIN 22.0-30.0 mmol/L C) Total CO2 - POC 26.3 LAB BERP(LOINC mmol/L ) Base Excess - POC 1.1 LAB O2RP(LOINC 92.0-96.0 % ) O2 High Saturation - POC 99.2 Performed By: #### BGRP, CLRP, HGBRP, GLURP, KRP, HCTRP, NARP, CARP #### [place] [address] CLRP Collected: 05/23/2017 Status: F [facility] 10:56 AM [facility] REPOSITORY TYPE CODE TESTS RESULT OUT OF REFERENCE UNITS RANGE LAB CLRP(LOINC) 98-110 mEq/L Low Chloride - POC 95 Performed By: #### BGRP, CLRP, HGBRP, GLURP, KRP, HCTRP, NARP, CARP #### [place] [address] HGBRP Collected: 05/23/2017 Status: F [facility] 10:56 AM [facility] REPOSITORY TYPE CODE TESTS RESULT OUT OF REFERENCE UNITS RANGE LAB HGBRP(LOIN 12.0-16.0 G/dL C) Low Hemoglobin - POC 9.7 Performed By: #### BGRP, CLRP, HGBRP, GLURP, KRP, HCTRP, NARP, CARP #### [place] [address] GLURP Collected: 05/23/2017 Status: F [facility] 10:56 AM [facility] REPOSITORY TYPE CODE TESTS RESULT OUT OF REFERENCE UNITS RANGE LAB GLURP(LOINC 82-115 mg/dL ) Glucose - POC 88 Performed By: #### BGRP, CLRP, HGBRP, GLURP, KRP, HCTRP, NARP, CARP #### [place] [address] KRP Collected: 05/23/2017 Status: F [facility] 10:56 AM [facility] REPOSITORY TYPE CODE TESTS RESULT OUT OF REFERENCE UNITS RANGE LAB KRP(LOINC) 3.5-5.0 mEq/L Potassium - POC 4.1 Performed By: #### BGRP, CLRP, HGBRP, GLURP, KRP, HCTRP, NARP, CARP #### [place] [address] HCTRP Collected: 05/23/2017 Status: F [facility] 10:56 AM [facility] REPOSITORY TYPE CODE TESTS RESULT OUT OF REFERENCE UNITS RANGE LAB HCTRP(LOIN 37.0-47.0 % C) Low Hematocrit - POC 29.0 Performed By: #### BGRP, CLRP, HGBRP, GLURP, KRP, HCTRP, NARP, CARP #### [place] [address] NARP Collected: 05/23/2017 Status: F [facility] 10:56 AM [facility] REPOSITORY TYPE CODE TESTS RESULT OUT OF REFERENCE UNITS RANGE LAB NARP(LOINC) 136-145 mEq/L Low Sodium - POC 130 Performed By: #### BGRP, CLRP, HGBRP, GLURP, KRP, HCTRP, NARP, CARP #### [place] [address] CARP Collected: 05/23/2017 Status: F [facility] 10:56 AM [facility] REPOSITORY TYPE CODE TESTS RESULT OUT OF REFERENCE UNITS RANGE LAB CARP(LOINC) 1.12-1.32 mmol/L Low Ionized 1.08 Calcium - POC Performed By: #### BGRP, CLRP, HGBRP, GLURP, KRP, HCTRP, NARP, CARP #### [place] [address] BGRP Collected: 05/23/2017 Status: F [facility] 9:18 AM [facility] REPOSITORY TYPE CODE TESTS RESULT OUT OF REFERENCE UNITS RANGE LAB PHRP(LOINC 7.380-7.460 ) pH (poct) - POC 7.448 LAB PCORP(LOIN 32.0-46.0 mmHg C) PCO2 - POC 39.2 LAB PO2RP(LOIN 74.0-108.0 mmHg C) PO2 - POC High 222.5 LAB HCORP(LOIN 21.0-29.0 mmol/L C) Bicarbonate - POC 26.5 LAB TCORP(LOIN 22.0-30.0 mmol/L C) Total CO2 - POC 27.7 LAB BERP(LOINC mmol/L ) Base Excess - POC 2.4 LAB O2RP(LOINC 92.0-96.0 % ) O2 High Saturation - POC 98.9 Performed By: #### BGRP, CLRP, HGBRP, GLURP, KRP, HCTRP, NARP, CARP #### [place] [address] CLRP Collected: 05/23/2017 Status: F [facility] 9:18 AM [facility] REPOSITORY TYPE CODE TESTS RESULT OUT OF REFERENCE UNITS RANGE LAB CLRP(LOINC) 98-110 mEq/L Low Chloride - POC 96 Performed By: #### BGRP, CLRP, HGBRP, GLURP, KRP, HCTRP, NARP, CARP #### [place] [address] HGBRP Collected: 05/23/2017 Status: F [facility] 9:18 AM [facility] REPOSITORY TYPE CODE TESTS RESULT OUT OF REFERENCE UNITS RANGE LAB HGBRP(LOIN 12.0-16.0 G/dL C) Low Hemoglobin - POC 10.3 Performed By: #### BGRP, CLRP, HGBRP, GLURP, KRP, HCTRP, NARP, CARP #### [place] [address] GLURP Collected: 05/23/2017 Status: F [facility] 9:18 AM [facility] REPOSITORY TYPE CODE TESTS RESULT OUT OF REFERENCE UNITS RANGE LAB GLURP(LOINC 82-115 mg/dL ) Glucose - POC 98 Performed By: #### BGRP, CLRP, HGBRP, GLURP, KRP, HCTRP, NARP, CARP #### [place] [address] KRP Collected: 05/23/2017 Status: F [facility] 9:18 AM [facility] REPOSITORY TYPE CODE TESTS RESULT OUT OF REFERENCE UNITS RANGE LAB KRP(LOINC) 3.5-5.0 mEq/L Potassium - POC 3.9 Performed By: #### BGRP, CLRP, HGBRP, GLURP, KRP, HCTRP, NARP, CARP #### [place] [address] HCTRP Collected: 05/23/2017 Status: F [facility] 9:18 AM [facility] REPOSITORY TYPE CODE TESTS RESULT OUT OF REFERENCE UNITS RANGE LAB HCTRP(LOIN 37.0-47.0 % C) Low Hematocrit - POC 30.0 Performed By: #### BGRP, CLRP, HGBRP, GLURP, KRP, HCTRP, NARP, CARP #### [place] [address] NARP Collected: 05/23/2017 Status: F [facility] 9:18 AM [facility] REPOSITORY TYPE CODE TESTS RESULT OUT OF REFERENCE UNITS RANGE LAB NARP(LOINC) 136-145 mEq/L Low Sodium - POC 130 Performed By: #### BGRP, CLRP, HGBRP, GLURP, KRP, HCTRP, NARP, CARP #### [place] [address] CARP Collected: 05/23/2017 Status: F [facility] 9:18 AM [facility] REPOSITORY TYPE CODE TESTS RESULT OUT OF REFERENCE UNITS RANGE LAB CARP(LOINC) 1.12-1.32 mmol/L Low Ionized 1.07 Calcium - POC Performed By: #### BGRP, CLRP, HGBRP, GLURP, KRP, HCTRP, NARP, CARP #### [place] [address] BGRP Collected: 05/23/2017 Status: F [facility] 7:48 AM [facility] REPOSITORY TYPE CODE TESTS RESULT OUT OF REFERENCE UNITS RANGE LAB PHRP(LOINC 7.380-7.460 ) pH (poct) - POC 7.395 LAB PCORP(LOIN 32.0-46.0 mmHg C) PCO2 - POC High 46.8 LAB PO2RP(LOIN 74.0-108.0 mmHg C) PO2 - POC High 507.1 LAB HCORP(LOIN 21.0-29.0 mmol/L C) Bicarbonate - POC 28.0 LAB TCORP(LOIN 22.0-30.0 mmol/L C) Total CO2 - POC 29.5 LAB BERP(LOINC mmol/L ) Base Excess - POC 2.6 LAB O2RP(LOINC 92.0-96.0 % ) O2 High Saturation - POC 99.4 Performed By: #### BGRP, CLRP, HGBRP, GLURP, KRP, HCTRP, NARP, CARP #### [place] [address] CLRP Collected: 05/23/2017 Status: F [facility] 7:48 AM [facility] REPOSITORY TYPE CODE TESTS RESULT OUT OF REFERENCE UNITS RANGE LAB CLRP(LOINC) 98-110 mEq/L Low Chloride - POC 94 Performed By: #### BGRP, CLRP, HGBRP, GLURP, KRP, HCTRP, NARP, CARP #### [place] [address] HGBRP Collected: 05/23/2017 Status: F [facility] 7:48 AM [facility] REPOSITORY TYPE CODE TESTS RESULT OUT OF REFERENCE UNITS RANGE LAB HGBRP(LOIN 12.0-16.0 G/dL C) Low Hemoglobin - POC 10.8 Performed By: #### BGRP, CLRP, HGBRP, GLURP, KRP, HCTRP, NARP, CARP #### [place] [address] GLURP Collected: 05/23/2017 Status: F [facility] 7:48 AM [facility] REPOSITORY TYPE CODE TESTS RESULT OUT OF REFERENCE UNITS RANGE LAB GLURP(LOINC 82-115 mg/dL ) Glucose - POC 95 Performed By: #### BGRP, CLRP, HGBRP, GLURP, KRP, HCTRP, NARP, CARP #### [place] [address] KRP Collected: 05/23/2017 Status: F [facility] 7:48 AM [facility] REPOSITORY TYPE CODE TESTS RESULT OUT OF REFERENCE UNITS RANGE LAB KRP(LOINC) 3.5-5.0 mEq/L Potassium - POC 4.2 Performed By: #### BGRP, CLRP, HGBRP, GLURP, KRP, HCTRP, NARP, CARP #### [place] [address] HCTRP Collected: 05/23/2017 Status: F [facility]: [facility] 7:48 AM [facility] REPOSITORY TYPE CODE TESTS RESULT OUT OF REFERENCE UNITS RANGE LAB HCTRP(LOIN 37.0-47.0 % C) Low Hematocrit - POC 32.0 Performed By: #### BGRP, CLRP, HGBRP, GLURP, KRP, HCTRP, NARP, CARP #### [place] [address] NARP Collected: 05/23/2017 Status: F [facility]: [facility] 7:48 AM [facility] REPOSITORY TYPE CODE TESTS RESULT OUT OF REFERENCE UNITS RANGE LAB NARP(LOINC) 136-145 mEq/L Low Sodium - POC 132 Performed By: #### BGRP, CLRP, HGBRP, GLURP, KRP, HCTRP, NARP, CARP #### [place] [address] CARP Collected: 05/23/2017 Status: F [facility]: [facility] 7:48 AM [facility] REPOSITORY TYPE CODE TESTS RESULT OUT OF REFERENCE UNITS RANGE LAB CARP(LOINC) 1.12-1.32 mmol/L Ionized 1.15 Calcium - POC Performed By: #### BGRP, CLRP, HGBRP, GLURP, KRP, HCTRP, NARP, CARP #### [place] [address] CBC Collected: 05/23/2017 Status: F [facility]: [facility] 6:07 AM [facility] REPOSITORY TYPE CODE TESTS RESULT OUT OF REFERENCE UNITS RANGE LAB WBC(LOINC) 4.50-10.80 10 3/mcL WBC 6.10 LAB RBCCT(LOINC 4.10-5.30 10 6/mcL ) Low RBC 3.76 LAB HGB(LOINC) 12.0-16.0 G/dL Low Hgb 11.1 LAB HCT(LOINC) 34.0-46.0 % Low Hct 33.3 LAB MCV(LOINC) 80.0-99.0 fL MCV 88.5 LAB MCH(LOINC) 27.0-33.0 pg MCH 29.5 LAB MCHC(LOINC) 32.0-36.0 G/dL MCHC 33.4 LAB RDW(LOINC) 11.5-15.5 % RDW 14.2 LAB PLT(LOINC) 150-450 10 3/mcL Platelet 162 LAB MPV(LOINC) 6.6-10.5 fL MPV 7.5 Performed By: #### CBC, ADIFF, ANEU, BMP, GFR, FIB, APTT, PRO #### [place] [address] .AUTO DIFF Collected: 05/23/2017 Status: F [facility] 6:07 AM [facility] REPOSITORY TYPE CODE TESTS RESULT OUT OF REFERENCE UNITS RANGE LAB JOSEPH(LOINC) 50.0-75.0 % Neutrophil % 67.8 LAB LYM(LOINC) 20.0-40.0 % Low Lymphocyte % 18.5 LAB MON(LOINC) 2.0-13.0 % Monocyte % 12.0 LAB EO(LOINC) 0.0-6.0 % Eosinophil % 1.4 LAB BAS(LOINC) 0.0-2.5 % Basophil % 0.3 LAB ABLYM(LOIN 0.90-4.32 10 3/mcL C) Lymphocyte, 1.10 Absolute LAB VIMAL(LOINC 0.09-1.40 10 3/mcL ) Monocyte, 0.70 Absolute LAB AEOS(LOINC 0.00-0.65 10 3/mcL ) Eosinophil, 0.10 Absolute LAB ABAS(LOINC 0.00-0.27 10 3/mcL ) Basophil, 0.00 Absolute Performed By: #### CBC, ADIFF, ANEU, BMP, GFR, FIB, APTT, PRO #### [place] [address] .NEUABS Collected: 05/23/2017 Status: F [facility]: [facility] 6:07 AM [facility] REPOSITORY TYPE CODE TESTS RESULT OUT OF REFERENCE UNITS RANGE LAB ANEU(LOINC) 2.25-8.10 10 3/mcL Neutrophil, 4.10 Absolute Performed By: #### CBC, ADIFF, ANEU, BMP, GFR, FIB, APTT, PRO #### [place] [address] BMP Collected: 05/23/2017 Status: F [facility]: [facility] 6:07 AM [facility] REPOSITORY TYPE CODE TESTS RESULT OUT OF REFERENCE UNITS RANGE LAB GLU(LOINC) 82-115 mg/dL Glucose Level 98 LAB NA(LOINC) 136-145 mEq/L Low Sodium Level 132 LAB K(LOINC) 3.5-5.0 mEq/L Potassium Level 4.1 LAB CL(LOINC) 98-110 mEq/L Low Chloride 95 LAB CO2(LOINC) 22-32 mEq/L CO2 30 LAB EBAL(LOINC 4.0-15.0 mEq/L ) Electrolyte Balance 7.0 LAB BUN(LOINC) 8.0-22.0 mg/dL BUN 17.0 LAB CRE(LOINC) 0.50-1.20 mg/dL Creatinine Lvl (s) 0.59 LAB BC(LOINC) 10.0-22.0 ratio High BUN/Creatinine 28.8 Ratio LAB CA(LOINC) 8.4-10.1 mg/dL Calcium Lvl 9.5 Performed By: #### CBC, ADIFF, ANEU, BMP, GFR, FIB, APTT, PRO #### [place] [address] .GFR Collected: 05/23/2017 Status: F [facility] AM [facility] REPOS[facility] TYPE CODE TESTS RESULT OUT OF REFERENCE UNITS RANGE LAB GFRAA(LOINC ml/min/1.73 ) sqm GFR >60 [place] Result Comment: GFR Population mean for , Non- Americans Ages 20-29 = 116 mL/min/1.73 sq.m. Ages 30-39 = 107 mL/min/1.73 sq.m. Ages 40-49 = 99 mL/min/1.73 sq.m. Ages 50-59 = 93 mL/min/1.73 sq.m. Ages 60-69 = 85 mL/min/1.73 sq.m. Ages 70+ = 75 mL/min/1.73 sq.m. Chronic Kidney Disease: Less than 60 mL/min/1.73 square meters End Stage Renal Disease: Less than 15 mL/min/1.73 square meters LAB GFRNO(LOINC) ml/min/1.73sqm GFR Non- >60 Result Comment: GFR Population mean for , Non- Americans Ages 20-29 = 116 mL/min/1.73 sq.m. Ages 30-39 = 107 mL/min/1.73 sq.m. Ages 40-49 = 99 mL/min/1.73 sq.m. Ages 50-59 = 93 mL/min/1.73 sq.m. Ages 60-69 = 85 mL/min/1.73 sq.m. Ages 70+ = 75 mL/min/1.73 sq.m. Chronic Kidney Disease: Less than 60 mL/min/1.73 square meters End Stage Renal Disease: Less than 15 mL/min/1.73 square meters Performed By: #### CBC, ADIFF, ANEU, BMP, GFR, FIB, APTT, PRO #### [address] [address] FIB Collected: 05/23/2017 Status: F [facility] 6:07 AM [facility] REPOSITORY TYPE CODE TESTS RESULT OUT OF REFERENCE UNITS RANGE LAB FIB(LOINC) 250-550 mg/dL High Fibrinogen 634 Performed By: #### CBC, ADIFF, ANEU, BMP, GFR, FIB, APTT, PRO #### [address] [address] APTT Collected: 05/23/2017 Status: F [facility] 6:07 AM [facility] REPOSITORY TYPE CODE TESTS RESULT OUT OF REFERENCE UNITS RANGE LAB PDOSE(LOIN C) Heparin dose DTI (APTT) LAB APTT0(LOIN 25.0-35.0 seconds C) APTT 32.3 Result Comment: For Heparin anticoagulation therapy, the recommended therapeutic range is: 54-77 seconds (APTT Correlation with Anti-Xa therapeutic range of 0.3-0.7 units/ml). PLEASE REFERENCE THE PHARMACY PROTOCOL FOR DOSING. Performed By: #### CBC, ADIFF, ANEU, BMP, GFR, FIB, APTT, PRO #### [address] [address] PRO Collected: 05/23/2017 Status: F [facility] 6:07 AM [facility] REPOSITORY TYPE CODE TESTS RESULT OUT OF REFERENCE UNITS RANGE LAB PT(LOINC) 9.0-14.5 seconds Protime 10.5 Result Comment: Effective 08/26/07, Protime results may be affected by some antibiotics (i.e. Ciprofloxacin, Azithromycin, Bactrim) which may potentiate the action of oral anticoagulants, with further increases in Protime/INR. LAB INR(LOINC) ratio PT International Ratio 0.9 Result Comment: The [place] [employer] (CHEST, 1992, 102:312S-25S) recommended therapeutic range for oral anticoagulant therapy is: LOW RISK: Prophylaxis of venous thrombosis INR: 2.0-3.0 Treatment of pulmonary embolism 2.0-3.0 Prevention of systemic embolism 2.0-3.0 HIGH RISK: Mechanical prosthetic valves 2.5-3.5 Performed By: #### CBC, ADIFF, ANEU, BMP, GFR, FIB, APTT, PRO #### [place] [address] TABO Collected: 05/23/2017 Status: F [facility] 6[facility]07 AM [facility] REPOSITORY TYPE CODE TESTS RESULT OUT OF RANGE REFERENCE UNITS LAB ABORH(LOINC ) Unknown ABO/Rh A POS Interp Performed By: #### ABORH, ANTIS #### [place] [address] TABS Collected: 05/23/2017 Status: F [facility] 6:07 AM [facility] REPOSITORY TYPE CODE TESTS RESULT OUT OF REFERENCE UNITS RANGE LAB ANST(LOINC ) Antibody Negative ABSC Screen Tango Performed By: #### ABORH, ANTIS #### [place] [address] EMERGENCY DEPARTMENT Observed: 05/16/2017 Status: F Source: [facility] SUMMARY 11:24 PM [facility] REPOSITORY [facility] Medical Records Department [address] [place] [address] Emergency Department Summary 05/16/17 1600 MR#: [id number] Acct: [id number] Name: ROJAS BENNETTTOSHA Lee Rep #: [id number] : 1950 67 From: Ashlie Roberto MD PCP: Paulette Malloy MD Status: DEP ER - ER Visit Summary Date of Service: 05/16/17 Chief Complaint: [] Left lower extremity fourth toe redness history of chronic ulcer and peripheral vascular disease History of Present Illness: The patient is a 67 F [] please see the dictation 04/21/2017, the patient presents with similar complaint to that date, she has a chronic history of left lower extremity fourth digit ulcer and infection poor wound healing, she has history of multiple vascular surgeries for revascularization of left lower extremity she is developed ulceration of the left fourth toe as above she is scheduled to have re-vascular surgery by Dr. Hdz in [place] next week she basically is out of her Vicodin and noticed some redness around this ulcer the wound care nurse that cares for her by patient report instructed her to come to the emergency department. She is on home O2 her other medical problems are stable she has no other complaints except for some slight redness over the chronic infection/ulcer to the left fourth digit and lack of pain medication Physical Examination: [] She is in no distress her vital signs are within normal range her blood pressures about 100/80 she is on her home oxygen her lungs are diminished heart tones are distant abdomen soft nontender left lower extremity there is a deep ulcer to the lateral margin of the left fourth toe this is dry there is some minimal redness around the site. There is decreased perfusion compared to the right she has full range of motion of her lower extremities bilaterally. She has some other scattered ulcerations including to the left tip great toe and lateral foot but none of these are draining or infected or painful She clearly has chronic arterial vascular insufficiency or occlusion she is scheduled for surgery next week there is suggestion of some slight redness to the toe but nothing to suggest a serious systemic life-threatening process she assures me this is really more chronic her main complaint is she is out of her Clarkson This time in the past she was she was augmented and did well we will resume the therapy, I will provide her with 7 Clarkson tablets as of explained her the emergency department cannot manage her pain secondary to new regulations in the state of [place] and she must obtain her pain management from her physicians she understands agrees and will follow up further we again had a discussion related to osteomyelitis amputation chronic wound healing sepsis and etc. she understands she is feeling otherwise fine wants to go home and will give all of her appointments Test Results: [] Emergency Department Course and Treatment: [] Treatment Plan: [] Disposition: [] Home stable Impression: [] Arterial insufficiency occlusion chronic left lower extremity, dry gangrene ulceration left fourth toe possible early cellulitis left foot This note was generated with Octavianation software. It may contain incorrect words, spelling, and punctuation that were not noted in review of the chart prior to signing ED Disposition - Plan for ED Patient: Chief Complaint: Wound Check Referrals: Paulette Malloy MD [Primary Care Provider] - What to do if you have Problems For any increased pain, shortness of breath, bleeding, nausea or vomiting, chest pain, or any unexpected problems, contact your Primary Care Provider. Call [facility] ([phone]) or report to the closest Emergency Room. Call 911 if necessary. 05/16/17 2324 <Electronically signed by Ashlie Roberto MD> Date Ashlie Roberto MD Cosigner Signature (If Indicated): Date CC: Paulette Malloy MD DISCHARGE INSTRUCTION Observed: 05/16/2017 Status: F Source: [place] 4:06 PM [facility] REPOSITORY [facility] Medical Records Department [address] [place] [address] Discharge Instruction 05/16/17 1604 MR#: [id number] Acct: [id number] Name: TOSHA ALVARADO Rep #: [id number] : 1950 67 From: Ashlie Roberto MD PCP: Paulette Malloy MD Status: REG ER ED Disposition - Plan for ED Patient: Chief Complaint: Wound Check Instructions: ED Wound Infec After Surgery Prescriptions: Hydrocodone Bitart/Apap 5-325 [Clarkson 5/325] 1 - 2 tab PO Q4H PRN PRN #7 tab PRN Reason: Pain Amox/Clavulanate Tablet [Augmentin Tablet] 875 mg PO Q12H #20 tab Referrals: Paulette Malloy MD [Primary Care Provider] - What to do if you have Problems For any increased pain, shortness of breath, bleeding, nausea or vomiting, chest pain, or any unexpected problems, contact your Primary Care Provider. Call [facility] ([phone]) or report to the closest Emergency Room. Call 911 if necessary. 05/16/17 1606 <Electronically signed by Ashlie Roberto MD> Date Ashlie Beckfordignmeera Signature (If Indicated): Date CC: Paulette Malloy MD STRESS TEST ECHO W/O Observed: 05/10/2017 Status: F Source: [facility] CONTRAST 5:42 PM [facility] REPOSITORY [facility] Cardiovascular Services [address] [place] [address] Stress Test Echo w/o Contrast MR#: [id number] Acct: [id number] Name: TOSHA ALVARADO Rep #: [id number] : 1950 67 From: Red Millan MD Primary Care: Paulette Malloy MD Status: REG CLI Ordering Dr: Red Millan MD Sex: F C Reason For Study: SOB, PRE-OP Stress Results Protocol: Dobutamine Stress Echocardiogram Maximum Predicted HR: 155 bpm Target HR: 132 bpm% Maximum Predicted HR: 93 % DurationHeart Rate Stage (mm:ss) (bpm) BPDos e BASELINE 81 139/69 DSE- 10 MCG 3:32 84 135/7910.00 DSE- 20 MCG 3:14 12 4 144/7720.00 DSE- 30 MCG 1:44 14 4 152/8130.00 RECOVERY 94 129/58 Stress Duration: 8:30 mm:ss Maximum Stress HR: 144 bpm Baseline Echocardiogram Findings Stress Echo Wall motion Data Resting WMIntermediate WMStress WM Resting Wall Motion Wall Motion Stress No regional wall motion No regional wall motion abnormalities noted. abnormalities noted. Ejection Fraction 60 %. Ejection Fraction 70 %. Stress Results Drug infusion was stopped due to achievement of target heart rate. The patient did not exhibit any symptoms during drug infusion. Normal BP respons to dobutamine. EKG Data Baseline ECG demonstrates normal sinus rhythm with a rate of 77 beats per minute. Normal intervals are noted. The resting blood pressure was 152/81. The baseline ECG demonstrates normal sinus rhythm with at rate of _ beats per minute. Normal baseline electrocardiogram. The patient was titrated from 10 mcg to a maximun of 30 mcg of dobutamine during the stress. The maximum heart rate attained was 144 beats per minute. This was 92% of maximum predicted heart rate. During dobutamine infusion, there were no ST or T wave changes noted to suggest ischemia. At peak infusion, upsloping ST changes only were noted, which did not meet the criteria for ischemia. The peak blood pressure was 152/81. No arrhythmias noted. Interpretation Summary The patient was titrated from 10 mcg to a maximun of 30 mcg of dobutamine during the stress. Normal resting LV systolic function. Nonstenotic valves. With stress, the LV size decreased and all segments augmented normally. The LVEF increased from 60% to 70%. Negative for ischemia at 92% of MPHR and at 1 METS. Normal dobutamine stress echo Ordering Physician: Red Millan Referring Physician: Red Millan Performed By: Ana Maria Smallwood RDCS 05/10/17 174 Date Red Millan MD CC: Paulette Malloy MD; Red Millan MD Date Dictated: 05/10/17 1239 Date Transcribed: 05/10/[id number] Anthropometrist: Signed EMERGENCY DEPARTMENT Observed: 04/21/2017 Status: F Source: [facility] SUMMARY 3:41 PM [facility] REPOSITORY [facility] Medical Records Department [address] [place] [address] Emergency Department Summary 04/21/17 1223 MR#: [id number] Acct: [id number] Name: TOSHA ALVARADO Rep #: [id number] : 1950 67 From: Ashlie Roberto MD PCP: Paulette Malloy MD Status: DEP ER - ER Visit Summary Date of Service: 04/21/17 Chief Complaint: [] Left foot great toe and fourth toe pain for months followed by wound care and vascular surgery History of Present Illness: The patient is a 67 F [] labs including COPD peripheral vascular disease, she has had multiple surgeries for vascularization left lower extremity, she has been told she requires additional vascular surgery 4 months she has had discoloration and a circular red dot over her left fourth toe and great toe, she is followed by wound care center vascular surgery Dr. Hdz, and podiatry she reports she has been managed at wound care center with salves and dressings she is now having worsening pain she has no more Clarkson at home to use and she came to the emergency department. She is scheduled to have revascularization surgery soon and if the toes do not improve she has been told she may require amputation no trauma no other complaints Physical Examination: [] She is on home O2 her other medical problems are stable her lungs are diminished heart tones are normal abdomen soft nontender she is in no distress the left lower extremity is warm bilaterally I feel a femoral pulse I do not feel any other pulses in her lower extremity. I did place the pulse ox probe over her great toe and the fourth toe and the pulse ox did read the accurate pulse ox and heart rate with both toes the left great toe medially is a circular black dot the left fourth toe has black eschar to it in the skin appears to be denuded it is dry there is minimal redness around the fourth toe there is been really no significant change in the appearance of this foot per the patient the rest of the exam is unremarkable she stable with no other concerns or complaints Test Results: [] Emergency Department Course and Treatment: [] Long conversation with her I explained the concept of vascular arterial occlusion insufficiency dry gangrene infection osteomyelitis she indicates she is aware of all the above she is waiting to have the vascular surgery to see if her foot will recover she is just asking for pain management. We have provided her with Clarkson Augmentin we will check an x-ray of the foot for fracture or obvious osteomyelitis X-rays negative as above nothing acute see that report she will follow the plan as outlined above and follow-up with all of her doctors and again she understands the risk of amputation Treatment Plan: [] Disposition: [] Home stable Impression: [] Vascular insufficiency involving the left leg long-standing, dry gangrene lesions to the toes This note was generated with Octavianation software. It may contain incorrect words, spelling, and punctuation that were not noted in review of the chart prior to signing ED Disposition - Plan for ED Patient: Chief Complaint: Wound Referrals: Paulette Malloy MD [Primary Care Provider] - What to do if you have Problems For any increased pain, shortness of breath, bleeding, nausea or vomiting, chest pain, or any unexpected problems, contact your Primary Care Provider. Call Upplication Registry ([phone]) or report to the closest Emergency Room. Call 911 if necessary. 04/21/17 1541 <Electronically signed by Ashlie Roberto MD> Date Ashlie Roberto MD Cosigner Signature (If Indicated): Date CC: Paulette Malloy MD DISCHARGE INSTRUCTION Observed: 04/21/2017 Status: F Source: [place] 1:14 PM [facility] REPOSITORY [facility] Medical Records Department [address] [place] [address] Discharge Instruction 04/21/17 1312 MR#: [id number] Acct: [id number] Name: TOSHA ALVARADO Rep #: [id number] : 1950 67 From: Ashlie Roberto MD PCP: Paulette Malloy MD Status: REG ER ED Disposition - Plan for ED Patient: Chief Complaint: Wound Instructions: Discharge Instructions for Diabetic Foot Ulcers, Discharge Instructions for Pressure Ulcer Prescriptions: Hydrocodone Bitart/Apap 5-325 [Clarkson 5/325] 1 - 2 tab PO Q4H PRN PRN #12 tab PRN Reason: Pain Amox/Clavulanate Tablet [Augmentin Tablet] 875 mg PO Q12H #20 tab Referrals: Paulette Malloy MD [Primary Care Provider] - What to do if you have Problems For any increased pain, shortness of breath, bleeding, nausea or vomiting, chest pain, or any unexpected problems, contact your Primary Care Provider. Call [facility] ([phone]) or report to the closest Emergency Room. Call 911 if necessary. 04/21/17 1314 <Electronically signed by Ashlie Roberto MD> Date Ashlie Roberto MD Cosigner Signature (If Indicated): Date CC: Paulette Malloy MD FOOT MIN 3 VIEWS Observed: 04/21/2017 Status: F Source: [place] 12:12 PM [facility] REPOSITORY [facility] Imaging Services [address] [place] [address] Foot min 3 Views MR#: [id number] Acct: [id number] Name: TOSHA ALVARADO Rep #: [id number] : 1950 F 67 From: Racquel Arnold MD PCP: Paulette Malloy MD Status: REG ER Study: Foot min 3 Views Date of Exam: 04/21/17 Exam# [id number] Ordering Dr: Ashlie Roberto MD STUDY: X-RAY - LEFT FOOT CLINICAL: Female, 67 years old. NECROSIS FOURTH TOE TECHNIQUE: 3 view(s) of the foot. COMPARISON: February 18, 2017 FINDINGS: Normal talus, calcaneus, and tarsal bones. Normal visualized subtalar, talonavicular, calcaneocuboid, tarsal and tarsometatarsal articulations. Normal metatarsi. Normal metatarsophalangeal joint of the great toe. Normal tibial and fibular sesamoid bones. Normal interphalangeal joint of the great toe. Normal phalanges of the great toe. Normal second through fifth metatarsophalangeal joints. Normal interphalangeal joints and phalanges of the lesser toes. Again seen is diffuse osteopenia. There is fourth digit soft tissue swelling. No radiographic evidence of osteomyelitis. RAD/Foot min 3 Views IMPRESSION: There is fourth digit soft tissue swelling. Electronically Signed: Racquel Arnold MD at 12:55 EDT , Service support , CC: MD Nir Roberto; Paulette Malloy MD Anthropometrist: Signed CARDIOLOGY VISIT Observed: 04/17/2017 Status: F Source: [place] REPORT 2:53 PM [facility] REPOSITORY [facility] [address] [place] [address] OFFICE VISIT Date of Service: 04/17/17 MR#: [id number] Acct: [id number] Name: TOSHA ALVARADO Rep #: [id number] : 1950 Provider: Red Millan MD Age/Sex: 67/F Location: [facility] Status: Signed HPI HPI Chief Complaint: Preop cardiac evaluation Details: TOSHA BENNETT, is a 67 F who presents to the office today for a preoperative evaluation. She is a lady with a history of significant peripheral vascular disease status post bilateral common femoral endarterectomies with bilateral common external iliac stents. She also has had a left common femoral endarterectomy with external composite graft. She recently underwent a lower extremity angiogram which demonstrated evidence of occlusive arterial disease. It is my understanding that she is scheduled for a femoral-tibial bypass vein harvest. She denies any chest pain or shortness of breath is at baseline no paroxysmal nocturnal dyspnea and no pedal edema. She has had no dizziness or diaphoresis no near syncope or syncope. She does have a history of hypertension and probable diabetes mellitus. Her physical exam demonstrates reduced entry at the bases regular rate and rhythm and no pedal edema. She apparently had an echocardiogram in April 2016 which demonstrated ejection fraction of 75%. Intake Vital Signs04/17/17 Height 4 ft 9 in 04/17/17 Weight: 111 lb 04/17/17 Body Mass Index (BMI) 24.0 04/17/17 Blood Pressure 132/62 04/17/17 Blood Pressure Location Rt brachial Intake Visit Reasons: Ref'd by [facility] for pre-op; cardiac Hx w/[place] Allergies levofloxacin [From Levaquin] Allergy (Verified 04/17/17 14:08) Other pineapple [Pineapple] Allergy (Verified 04/17/17 14:08) Swelling pregabalin [From Lyrica] Allergy (Verified 04/17/17 14:08) MAKES ME FREAK OUT Sulfa (Sulfonamide Antibiotics) Allergy (Verified 04/17/17 14:08) Anaphylaxis cyclobenzaprine [From Flexeril] Adverse Reaction (Verified 04/17/17 14:08) Vomiting duloxetine [From Cymbalta] Adverse Reaction (Verified 04/17/17 14:08) Vomiting sertraline HCl [From Zoloft] Adverse Reaction (Verified 04/17/17 14:08) MAKES ME CRAZY Medications Acetaminophen [Tylenol Extra Strength] 500 mg PO Q6H PRN PRN 04/04/17 [History Confirmed 04/04/17] Dabigatran Etexilate Mesylate [Pradaxa] 75 mg PO BID@0600,1800 04/04/17 [History Confirmed 04/05/17] Linacolotide [Linzess] 145 mcg PO DAILY 04/04/17 [History Confirmed 04/04/17] Lorazepam [Ativan] 0.5 mg PO DAILY PRN PRN 04/04/17 [History Confirmed 04/04/17] Metoprolol Tartrate [Lopressor (Beta Lorie)] 50 mg PO TID 04/04/17 [History Confirmed 04/04/17] Promethazine HCl 25 mg PO Q8H PRN PRN 04/04/17 [History Confirmed 04/04/17] Trazodone HCl [Desyrel] 50 mg PO QHS 04/04/17 [History Confirmed 04/04/17] Albuterol Aerosols [Ventolin Aerosols] 2.5 mg INHALATION Q4H PRN PRN 04/05/17 [History Confirmed 04/05/17] Albuterol IH (ProAir) [Proair Hfa (SP)Vent Pts] 2 puff INHALATION Q6H PRN PRN 04/05/17 [History Confirmed 04/05/17] Collagenase [Santyl] 1 applic TOPICAL DAILY 04/05/17 [History Confirmed 04/05/17] Gabapentin [Neurontin] 600 mg PO TIDCM 04/05/17 [History Confirmed 04/05/17] Ipratropium/Albuterol Sulfate [Duoneb] 3 ml INHALATION Q6HWA.RT 04/05/17 [History Confirmed 04/05/17] Montelukast [Singulair] 10 mg PO DAILY 04/05/17 [History Confirmed 04/05/17] Pulmicort 2 puff IH Q6H PRN PRN 04/05/17 [History Confirmed 04/05/17] Sodium Chloride 1 gm PO DAILY 04/05/17 [History Confirmed 04/05/17] atorvastatin 20 mg tablet 20 mg PO QDAY #90 tab 04/17/17 [Rx Confirmed 04/17/17] PFSH Medical History Atherosclerosis of [place] artery of left lower extremity (Chronic) Neuropathic pain (Chronic) Hyperlipidemia (Chronic) Peripheral arterial occlusive disease (Chronic) Type 2 diabetes mellitus with diabetic polyneuropathy (Chronic) Osteoporosis (Chronic) Acute on chronic congestive heart failure (Chronic) Cerebrovascular disease (Chronic) Hypertension (Chronic) COPD (chronic obstructive pulmonary disease) (Chronic) Tobacco user (Chronic) abdominal aorta endovascular stent graft (Chronic) Surgical History History of appendectomy (Chronic) History of bilateral carotid endarterectomy (Chronic) History of hysterectomy (Chronic) bilateral femoral endarterectomy (Chronic) bilateral iliac stenting (Chronic) Family History Mother CVA (cerebral vascular accident) Social History Smoking Status: Former smoker quit date: 02/11/13 pack-years: 45 ROS Const Const: Negative for fatigue, weakness, difficulty sleeping, frequent falls, headache(s) or excessive sweating Eyes Eyes: Negative for loss of peripheral vision, transient loss of vision, blurry vision or double vision ENT ENT: Negative for headache(s), dizziness, Nosebleed/epistaxis or balance problems Cardio Chest Pain: No Edema: None Muscle aches with walking: None Additional Details: S/P lower extremity angiogram via left brachial artery. Brachial site with small hematoma. Patient admits it was much larger. Left radial pulse faint, finger tips cool to touch. Unable to auscultate BP. Patient c/o intermittent arm pain. States she reported it to the vascualar nurse Resp Respiratory: Positive for other (Diminished t/o); negative for SOB with activity, SOB at rest, SOB orthopnea\SOB lying down or paroxysmal nocturnal dyspnea GI GI: Negative nausea or heartburn : Negative for hematuria Musc Musc: Negative for muscle aches/ myalgia, muscle weakness, joint pain or balance problems Skin Skin: Negative non-healing lesions, unusual bruising or rash Neuro Neuro: Negative for weakness, frequent falls, blurry vision, headache(s), dizziness, lightheadedness, orthostatic symptoms or double vision Chip Hematologic/Lymphatic: Negative for easy bruising Endo Endo: Negative for fatigue, excessive sweating or increased thirst/drinking Psych Psych: Negative for anxiety or depression Allergy Allergy/Immunology: Negative for hives, Negative for rash Cardiology Exam Const Appearance: cooperative, healthy appearing, well developed, well groomed and no acute distress Nutritional Appearance: well nourished and average body habitus Orientation: alert, awake and oriented x3 Head Head: normal to inspection, normocephalic and atraumatic Ears: hearing grossly normal bilaterally and external ears normal Nose: external nose normal, nasal mucous membranes and turbinates normal, nares normal, septum normal, no nasal discharge Face and Sinus: face symmetric Mouth: oral mucosae normal, tongue normal, oropharynx normal and moist mucous membranes Teeth and gingiva: dentition normal Throat: posterior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 8.5-10 mg/dL Low .1 CA 8.2 LAB L501.5300 136-14 mmol/L Low 5 NA 134 LAB L501.5600 3.5-5. mmol/L 1 K Normal 4.2 LAB L501.5900 98-107 mmol/L Low CL 97 LAB L501.6100 21.0-3 mmol/L 2.0 CO2 Normal 30.0 LAB L501.6200 5-15 GAP Normal 7 Performed By: #### L500.2500 #### [facility] [address] [place], [address] HOME HEALTH PROGRESS Observed: 03/05/2017 Status: F Source: [place] NOTE 9:47 PM [facility] REPOSITORY [facility] Medical Records Department [address] [place] [address] Home Health Progress Note Pvca-[id number] Encounter Encounter Date: 03/05/172145 MR#: [id number] Acct: [id number] Name: TOSHA ALVARADO Rep #: [id number] : 1950 67 From: Mark Huber MD PCP: Paulette Malloy MD Status: ADM IN Location: [place] [address] Home Health Note - Plan Overview of reason of hospitalization: The patient is a 67 year old Female with below past medical history hospitalized for COPD exacerbation, complicated by left foot ulcer requiring wound care, significant PAOD, admitted to TCU for rehabilitation, strengthening. Will discharge home with brother. Home health ordered. Problems: Patient was seen for Shortness of breath (Acute) Foot ulcer, left (Acute) COPD exacerbation (Acute) Peripheral arterial occlusive disease (Chronic) Hyperlipidemia (Chronic) Neuropathic pain (Chronic) Insomnia (Chronic) Complete List of Medical Problems Abdominal pain (Acute) Fracture of fifth toe, left, closed (Acute) Other specified peripheral vascular diseases (Chronic) Chronic ulcer of left foot with fat layer exposed (Acute) Hammer toe of left foot (Chronic) Type 2 diabetes mellitus with diabetic polyneuropathy (Chronic) Shortness of breath (Acute) Foot ulcer, left (Acute) COPD exacerbation (Acute) Peripheral arterial occlusive disease (Chronic) Hyperlipidemia (Chronic) Neuropathic pain (Chronic) Insomnia (Chronic) Chronic anticoagulation (Chronic) Chronic hypoxemic respiratory failure (Acute) Osteoporosis (Chronic) Seizure disorder (Chronic) Peripheral vascular disease (Chronic) Vertebral compression fracture (Acute) Acute on chronic congestive heart failure (Acute) Acute exacerbation of chronic obstructive pulmonary disease (Acute) Cerebrovascular disease (Chronic) Hypertension (Chronic) COPD (chronic obstructive pulmonary disease) (Chronic) Tobacco user (Chronic) Dyslipidemia (Chronic) Diabetes (Chronic) Viral syndrome (Acute) DM2 (diabetes mellitus, type 2) (Chronic) Hyponatremia (Chronic) - Requirements and Reasons Disciplines Needed/Ordered: Correction Reason for Disciplines: Disease Specific Monitoring/education, Medication Management/Knowledge Deficit, Wound Care Related To: Change in Medical Treatment Plan, Limited/Poor Endurance, Shortness of Breath with Activity Patient is unable to leave the home: Without Aid of Supportive Devices (crutches, cane, wheelchair, walker), Without the assistance of another person 03/05/17 0521 <Electronically signed by Mark Huber MD> Date Mark Huber MD Cosigner Signature (if indicated): Date CC: Signed DISCHARGE SUMMARY Observed: 03/05/2017 Status: F Source: [place] 9:46 PM [facility] REPOSITORY [facility] Medical Records Department [address] [place] [address] Discharge Summary 03/05/17 2143 MR#: [id number] Acct: [id number] Name: TOSHA ALVARADO Rep #: [id number] : 1950 67 From: Mark Huber MD PCP: Paulette Malloy MD Status: ADM IN Y Location: [place] [address] Discharge Date and Diagnosis - Problem List Patient Problems: Active and Suspected Problems Shortness of breath (Acute) Foot ulcer, left (Acute) COPD exacerbation (Acute) Date of Admission: 02/26/17 Date of Discharge: 03/06/17 - Primary Discharge Diagnosis Active and Suspected Problems Shortness of breath (Acute) Foot ulcer, left (Acute) COPD exacerbation (Acute) - Secondary Discharge Diagnosis Chronic Problems Other specified peripheral vascular diseases (Chronic) Hammer toe of left foot (Chronic) Type 2 diabetes mellitus with diabetic polyneuropathy (Chronic) Peripheral arterial occlusive disease (Chronic) Hyperlipidemia (Chronic) Neuropathic pain (Chronic) Insomnia (Chronic) Chronic anticoagulation (Chronic) Osteoporosis (Chronic) Seizure disorder (Chronic) Peripheral vascular disease (Chronic) Cerebrovascular disease (Chronic) Status post acute ischemic stroke no residual deficit Moderate carotid disease Bilateral carotid endarterectomy Hypertension (Chronic) COPD (chronic obstructive pulmonary disease) (Chronic) Tobacco user (Chronic) Dyslipidemia (Chronic) Diabetes (Chronic) DM2 (diabetes mellitus, type 2) (Chronic) Hyponatremia (Chronic) Hospital Course and Treatment Imaging Results: 02/26/17 16:58 Diet: Regular Diet Food consistency:: Regular Liquid Consistency:: Regular/Thin Dietary Modifications:: Fluid Restricted Diet Is pt able to select menu?: Yes Diet Comments: 1800cc/24 hour Clinical Impression(s) from Imaging Studies Chest X-Ray 02/28/17 13:07 IMPRESSION: Stable mild increased linear markings at the lung bases suggestive of bibasilar scarring. Electronically Signed: Luis Enrique Colon MD at 13:46 EST Tel [phone], Service support , Labs (Last 48 Hours) POC Glucose 83 123 H Consultations 02/26/17 Consult: Onc/Wound/cone cleaner Routine Comment: Reason for Consult:: LT FOOT WOUND Operations: None Procedures: None Summary of Care Provided: The patient is a 67 year old Female with below past medical history hospitalized for COPD exacerbation, complicated by left foot ulcer requiring wound care, significant PAOD, admitted to TCU for rehabilitation, strengthening. Will discharge home with brother. Home health ordered. Discharge Diet: No Restrictions Discharge Activity: Return to Normal Activity, Use Walker Weight Bearing Status: Partial weight bearing - Heel weight bearing left foot. Call your doctor if you observe: Fever of 101 or Higher, Inability to urinate, Inability to have a bowel movement, Shortness of breath, Chest pain, Uncontrolled pain Home Medications: Medications to take at Discharge Albuterol Sulfate [Proair Hfa] 2 puff INHALATION TID PRN 03/02/13 Metoprolol Tartrate [Lopressor (beta lorie)] 50 mg PO TID 03/02/13 Dabigatran Etexilate Mesylate [Pradaxa] 150 mg PO BID@0600,1800 06/03/14 Gabapentin [Neurontin] 600 mg PO TIDCM 06/03/14 Trazodone HCl 50 mg PO QHS PRN 06/02/16 Montelukast [Singulair] 10 mg PO DAILY 07/25/16 Sodium Chloride 1 gm PO DAILY 07/25/16 Budesonide Aerosol [Pulmicort Respules] 1 mg INHALATION Q12H 02/15/17 Albuterol Aerosols [Ventolin Aerosols] 2.5 mg INHALATION Q4H PRN PRN 02/19/17 Ipratropium/Albuterol Sulfate [Duoneb] 3 ml INHALATION Q6H.RT 02/19/17 Prednisone [Deltasone] 20 mg PO BID 02/19/17 Calcium Carbonate [Tums] 500 mg PO TIDCM 02/26/17 Ipratropium/Albuterol Sulfate [Duoneb] 3 ml INHALATION Q4H 02/26/17 Lactobacillus Acidophilus [Acidophilus] 1 tablet PO BID 02/26/17 Acetaminophen [Tylenol] 1,000 mg PO Q8H PRN PRN tablet 03/05/17 Collagenase [Santyl] 1 applic TOPICAL DAILY #1 tube 03/05/17 HydrALAZINE [Apresoline] 25 mg PO TID #60 tab 03/05/17 Lisinopril [Zestril] 40 mg PO DAILY #30 tab 03/05/17 Lorazepam [Ativan] 0.5 mg PO TID #45 tablet 03/05/17 Nystatin Powder [Mycostatin Powder] 1 applic TOPICAL 0600,2200 #1 bottle 03/05/17 Oxycodone [Oxyir] 10 mg PO Q4H PRN PRN #60 tablet 03/05/17 Pantoprazole Sodium [Protonix] 40 mg PO DAILY #30 tab 03/05/17 Polyethylene Glycol 3350 [Miralax] 17 gm PO DAILY #30 packet 03/05/17 Following Prescrptions Were Given to Patient: Oxycodone [Oxyir] 10 mg PO Q4H PRN PRN #60 tablet PRN Reason: Severe Pain (6-11/20) Collagenase [Santyl] 1 applic TOPICAL DAILY #1 tube Lisinopril [Zestril] 40 mg PO DAILY #30 tab Nystatin Powder [Mycostatin Powder] 1 applic TOPICAL 0600,2200 #1 bottle Pantoprazole Sodium [Protonix] 40 mg PO DAILY #30 tab Polyethylene Glycol 3350 [Miralax] 17 gm PO DAILY #30 packet HydrALAZINE [Apresoline] 25 mg PO TID #60 tab Lorazepam [Ativan] 0.5 mg PO TID #45 tablet Primary Care Physician: Paulette Malloy MD [Primary Care Provider] - Please follow up with your Primary Care Physician in: 1 week. Please Follow Up With: Surjit Sandoval DPM When: 1 week. Please Follow Up With: Aurora Hdz MD When: 1 week. Disposition: Home with Home Health Minutes spent on discharge:: 35 Patient Condition:: Stable Meaningful Use Info Meaningful Use Diagnoses (Choose all that apply): None applicable 03/05/17 7764 <Electronically signed by Mark Huber MD> Date Mark Huber MD Cosigner Signature (if applicable): Date CC: Paulette Malloy MD; Mark Huber MD Signed DISCHARGE INSTRUCTION Observed: 03/05/2017 Status: F Source: [place] 9:43 PM [facility] REPOSITORY [facility] Medical Records Department [address] [place] [address] Instructions for Home/Discharge Instructions 03/05/17 2139 MR#: [id number] Acct: [id number] Name: TOSHA ALVARADO Rep #: [id number] : 1950 67 From: Mark Huber MD PCP: Paulette Malloy MD Status: ADM IN - Discharge Diagnoses Current Active Problems: Current Active and Chronic Problems Shortness of breath (Acute) Foot ulcer, left (Acute) COPD exacerbation (Acute) Peripheral arterial occlusive disease (Chronic) Hyperlipidemia (Chronic) Neuropathic pain (Chronic) Insomnia (Chronic) You will use the following diet at home:: No restrictions, Regular Your food should be the consistency of: Regular Your liquids should be the consistency of: Regular/Thin Discharge Activity: Return to Normal Activity, Use Walker Weight Bearing Status: Partial weight bearing - Heel weight bearing left foot. Call your doctor if you observe: Fever of 101 or Higher, Inability to urinate, Inability to have a bowel movement, Shortness of breath, Chest pain, Uncontrolled pain Allergies/Adverse Reactions: Allergies levofloxacin [From Levaquin] Allergy (Verified 02/15/17 14:50) Other Red streak up her arm and itiching pineapple [Pineapple] Allergy (Verified 02/15/17 14:50) Swelling pregabalin [From Lyrica] Allergy (Verified 02/15/17 14:50) MAKES ME FREAK OUT Sulfa (Sulfonamide Antibiotics) Allergy (Verified 02/15/17 14:50) Anaphylaxis cyclobenzaprine [From Flexeril] Adverse Reaction (Verified 02/15/17 14:50) Vomiting duloxetine [From Cymbalta] Adverse Reaction (Verified 02/15/17 14:50) Vomiting sertraline HCl [From Zoloft] Adverse Reaction (Verified 02/15/17 14:50) MAKES ME CRAZY makes me crazy Medications to take at Discharge Albuterol Sulfate [Proair Hfa] 2 puff INHALATION TID PRN 03/02/13 Metoprolol Tartrate [Lopressor (beta lorie)] 50 mg PO TID 03/02/13 Dabigatran Etexilate Mesylate [Pradaxa] 150 mg PO BID@0600,1800 06/03/14 Gabapentin [Neurontin] 600 mg PO TIDCM 06/03/14 Trazodone HCl 50 mg PO QHS PRN 06/02/16 Montelukast [Singulair] 10 mg PO DAILY 07/25/16 Sodium Chloride 1 gm PO DAILY 07/25/16 Budesonide Aerosol [Pulmicort Respules] 1 mg INHALATION Q12H 02/15/17 Albuterol Aerosols [Ventolin Aerosols] 2.5 mg INHALATION Q4H PRN PRN 02/19/17 Ipratropium/Albuterol Sulfate [Duoneb] 3 ml INHALATION Q6H.RT 02/19/17 Prednisone [Deltasone] 20 mg PO BID 02/19/17 Calcium Carbonate [Tums] 500 mg PO TIDCM 02/26/17 Ipratropium/Albuterol Sulfate [Duoneb] 3 ml INHALATION Q4H 02/26/17 Lactobacillus Acidophilus [Acidophilus] 1 tablet PO BID 02/26/17 Acetaminophen [Tylenol] 1,000 mg PO Q8H PRN PRN tablet 03/05/17 Collagenase [Santyl] 1 applic TOPICAL DAILY #1 tube 03/05/17 HydrALAZINE [Apresoline] 25 mg PO TID #60 tab 03/05/17 Lisinopril [Zestril] 40 mg PO DAILY #30 tab 03/05/17 Lorazepam [Ativan] 0.5 mg PO TID #45 tablet 03/05/17 Nystatin Powder [Mycostatin Powder] 1 applic TOPICAL 0600,2200 #1 bottle 03/05/17 Oxycodone [Oxyir] 10 mg PO Q4H PRN PRN #60 tablet 03/05/17 Pantoprazole Sodium [Protonix] 40 mg PO DAILY #30 tab 03/05/17 Polyethylene Glycol 3350 [Miralax] 17 gm PO DAILY #30 packet 03/05/17 The following prescriptions were given: Oxycodone [Oxyir] 10 mg PO Q4H PRN PRN #60 tablet PRN Reason: Severe Pain (6-11/20) Collagenase [Santyl] 1 applic TOPICAL DAILY #1 tube Lisinopril [Zestril] 40 mg PO DAILY #30 tab Nystatin Powder [Mycostatin Powder] 1 applic TOPICAL 0600,2200 #1 bottle Pantoprazole Sodium [Protonix] 40 mg PO DAILY #30 tab Polyethylene Glycol 3350 [Miralax] 17 gm PO DAILY #30 packet HydrALAZINE [Apresoline] 25 mg PO TID #60 tab Lorazepam [Ativan] 0.5 mg PO TID #45 tablet Primary Care Physician: Paulette Malloy MD [Primary Care Provider] - Please follow up with your Primary Care Physician in: 1 week. Please Follow Up With: Surjit Sandoval DPM When: 1 week. Please Follow Up With: Aurora Hdz MD When: 1 week. Proposed Discharge Date: 03/06/17 03/05/172142 <Electronically signed by Mark Huber MD> Date Mark Huber MD CC: Aurora Hdz MD; Paulette Malloy MD; Shobha Fernandez DPM BEDSIDE GLUCOSE Collected: 03/05/2017 Status: F Source: [place] 6:54 AM [facility] REPOSITORY TYPE CODE TESTS RESULT OUT OF REFERENCE UNITS RANGE LAB L501.080 70-110 mg/dL High BEDSIDE GLU 123 Result Comment: MANAGEMENT OF PATIENT CARE PER NURSING PROTOCOL Performed By: #### L501.080 #### [facility] [place] [address] BEDSIDE GLUCOSE Collected: 03/04/2017 Status: F Source: [place] 6:21 AM [facility] REPOSITORY TYPE CODE TESTS RESULT OUT OF RANGE REFERENCE UNITS LAB L501.080 70-110 mg/dL Normal BEDSIDE GLU 83 Result Comment: MANAGEMENT OF PATIENT CARE PER NURSING PROTOCOL Performed By: #### L501.080 #### [facility] Point of Care [address] [place], [place] [id number] BEDSIDE GLUCOSE Collected: 03/03/2017 Status: F Source: [place] 6:32 AM [facility] REPOSITORY TYPE CODE TESTS RESULT OUT OF RANGE REFERENCE UNITS LAB L501.080 70-110 mg/dL Normal BEDSIDE GLU 79 Result Comment: MANAGEMENT OF PATIENT CARE PER NURSING PROTOCOL Performed By: #### L501.080 #### [facility] Point of Care [address] [place], [place] [id number] BEDSIDE GLUCOSE Collected: 03/02/2017 Status: F Source: [place] 6:43 AM [facility] REPOSITORY TYPE CODE TESTS RESULT OUT OF REFERENCE UNITS RANGE LAB L501.080 70-110 mg/dL High BEDSIDE GLU 132 Result Comment: MANAGEMENT OF PATIENT CARE PER NURSING PROTOCOL Performed By: #### L501.080 #### [facility] Point of Care [address] [facility]. [place], [place] [id number] Observed: 03/01/2017 Status: F Source: [place] RESPIRATORY PANEL 11:08 AM [facility] MOLECULAR REPOSITORY RP PANEL ADENOVIRUS Not Detected HUMAN METAPHNEUMO Not Detected INFLUENZA A Not Detected INFLUENZA A (SUBTYPE H1) Not Detected INFLUENZA A (SUBTYPE H3) Not Detected INFLUENZA B Not Detected PARAINFLUENZA 1 Not Detected PARAINFLUENZA 2 Not Detected PARAINFLUENZA 3 Not Detected PARAINFLUENZA 4 Not Detected RHINOVIRUS Not Detected RSV A Not Detected RSV B Not Detected NAAT METHOD Testing was performed using nucleic acid amplification Performed By: #### M100.638 #### [facility] [address] [place] [address]. [place], [place], [id number] BEDSIDE GLUCOSE Collected: 03/01/2017 Status: F Source: [place] 6:49 AM [facility] REPOSITORY TYPE CODE TESTS RESULT OUT OF REFERENCE UNITS RANGE LAB L501.080 70-110 mg/dL High BEDSIDE GLU 162 Result Comment: MANAGEMENT OF PATIENT CARE PER NURSING PROTOCOL Performed By: #### L501.080 #### [facility] Point of Care [address] [place] [address] CHEST PA AND LATERAL Observed: 02/28/2017 Status: F Source: [place] 1:08 PM [facility] REPOSITORY [facility] Imaging Services [address] [place] [address] Chest PA and Lateral MR#: [id number] Acct: [id number] Name: TOSHA ALVARADO Rep #: [id number] : 1950 F 67 From: Luis Enrique Colon MD PCP: Paulette Malloy MD Status: ADM IN Study: Chest PA and Lateral Date of Exam: 02/28/17 Exam# [id number] Ordering Dr: Mark Huber MD STUDY: X-RAY CHEST REASON FOR EXAM: Female, 67 years old. Persistent cough. TECHNIQUE: PA and lateral views of the chest. COMPARISON: Comparison is made with prior study dated February 18, 2017. FINDINGS: Hyperinflation. Stable increased linear markings at the lung bases suggestive of scarring. There is no demonstrated pleural abnormality. Normal size heart. Normal mediastinum and rhea. Normal visualized pulmonary arteries. There is atherosclerotic calcification of the aortic arch with tortuosity. There is demineralization of the osseous structures. Almost complete collapse of 2 mid dorsal vertebrae. Acute thoracic kyphosis at that level. Healed bilateral rib fractures. There is no demonstrated abnormality of the visualized soft tissue structures of the upper abdomen. RAD/Chest PA and Lateral IMPRESSION: Stable mild increased linear markings at the lung bases suggestive of bibasilar scarring. Electronically Signed: Luis Enrique Colon MD at 13:46 EST Tel [phone], Service support , CC: Paulette Malloy MD; Mark Huber MD Anthropometrist: Signed BASIC METABOLIC Collected: 02/28/2017 Status: F Source: [place] PROFILE (BMP) 8:30 AM [facility] REPOSITORY TYPE CODE TESTS RESULT OUT OF RANGE REFERENCE UNITS LAB L501.0100 70-110 mg/dL Normal GLU 88 LAB L501.1000 7-18 mg/dL High BUN 19 LAB L501.1100 0.55-1.02 mg/dL Normal 0.64 CREAT,SERUM Result Comment: The validity of the calculated GFR AND GFRAA in patients over 70 years has not been determined. Clinical correlation is essential. LAB L501.1110 >60 mL/min Normal EST GFR 98 Result Comment: Non- GFR Calc LAB L501.1115 >60 mL/min Normal EST GFR - AA 119 Result Comment: GFR Calc LAB L501.1255 ml/min Normal Estimated CRCL 71.85 LAB L501.1300 10-20 RATIO High BUN/CRE 29.5 LAB L501.2200 8.5-10 mg/dL Normal .1 CA 8.7 LAB L501.5300 136-14 mmol/L Low 5 NA 129 LAB L501.5600 3.5-5. mmol/L Normal 1 K 4.5 LAB L501.5900 98-107 mmol/L Low CL 91 LAB L501.6100 21.0-3 mmol/L Normal 2.0 CO2 31.0 LAB L501.6200 5-15 Normal GAP 7 Performed By: #### L500.2500 #### [facility] [address] [facility] [place], [address] BEDSIDE GLUCOSE Collected: 02/28/2017 Status: F Source: [place] 6:22 AM [facility] REPOSITORY TYPE CODE TESTS RESULT OUT OF RANGE REFERENCE UNITS LAB L501.080 70-110 mg/dL Normal BEDSIDE GLU 103 Result Comment: MANAGEMENT OF PATIENT CARE PER NURSING PROTOCOL Performed By: #### L501.080 #### [facility] Point of Care [address] [place], [place] [id number] CONSULTATION Observed: 02/27/2017 Status: F Source: [place] 11:36 AM [facility] REPOSITORY [facility] Medical Records Department [address] [place] [address] Consultation 02/27/17 1129 MR#: [id number] Acct: [id number] Name: TOSHA ALVARADO Rep #: [id number] : 1950 67 From: Aurora Hdz MD PCP: Paulette Malloy MD Status: ADM IN Y Location: [facility] TCU06-1 Problem List (1) Other specified peripheral vascular diseases Status: Chronic (2) Chronic ulcer of left foot with fat layer exposed Status: Acute (3) Foot ulcer, left Status: Acute Reason for Consult Date of Consultation: 02/27/17 Reason for Consultation: Severe peripheral vascular disease History of Present Illness: The patient is a 67 year old F with ulcer between her toes that is nonhealing. She has history of severe peripheral vascular disease and at present time a little difficult to get the full extent of her operations. We are trying to get these records she currently has a sore on the left great toe in between the fourth and fifth toes. And she is getting treatment for this they just asked to change the bandages when I got there discussed with the nurse and patient. She had PVRs done with an RUPAL of 0.34 on the left flattened digital waveform and suggestive of either proximal or femoral-popliteal disease. Were trying to get the records from main [facility] to see what was done but she had some significant aortic surgery possible mesenteric bypass with may be a history of mesenteric stenting from what I can understand from her. Also multiple angiograms throughout the last several years she had a carotid endarterectomy years ago at [facility] and then the last several years up at [facility] she did have a left femoral to distal bypass notes that she had 7 different incisions along her leg and he had taken 15 hours per her she was in the ICU for an extended period of time. She feels that bypass probably occluded 6 months ago I do not think she has been completely compliant with the follow-up care but asked to see her here see if there is anything we can do to improve any of her flow. She is clearly going to be at increased reps risk of limb loss at this point [] Past Medical History Past Medical History (Chronic Problems): Chronic Problems Other specified peripheral vascular diseases (Chronic) Hammer toe of left foot (Chronic) Type 2 diabetes mellitus with diabetic polyneuropathy (Chronic) Peripheral arterial occlusive disease (Chronic) Hyperlipidemia (Chronic) Neuropathic pain (Chronic) Insomnia (Chronic) Chronic anticoagulation (Chronic) Osteoporosis (Chronic) Seizure disorder (Chronic) Peripheral vascular disease (Chronic) Cerebrovascular disease (Chronic) Status post acute ischemic stroke no residual deficit Moderate carotid disease Bilateral carotid endarterectomy Hypertension (Chronic) COPD (chronic obstructive pulmonary disease) (Chronic) Tobacco user (Chronic) Dyslipidemia (Chronic) Diabetes (Chronic) DM2 (diabetes mellitus, type 2) (Chronic) Hyponatremia (Chronic) Allergies levofloxacin [From Levaquin] Allergy (Verified 02/15/17 14:50) Other Red streak up her arm and itiching pineapple [Pineapple] Allergy (Verified 02/15/17 14:50) Swelling pregabalin [From Lyrica] Allergy (Verified 02/15/17 14:50) MAKES ME FREAK OUT Sulfa (Sulfonamide Antibiotics) Allergy (Verified 02/15/17 14:50) Anaphylaxis cyclobenzaprine [From Flexeril] Adverse Reaction (Verified 02/15/17 14:50) Vomiting duloxetine [From Cymbalta] Adverse Reaction (Verified 02/15/17 14:50) Vomiting sertraline HCl [From Zoloft] Adverse Reaction (Verified 02/15/17 14:50) MAKES ME CRAZY makes me crazy Home Medications: Ambulatory Orders Medication Instructions Recorded Albuterol Sulfate [Proair Hfa] 2 puff INHALATION TID PRN 03/02/13 Metoprolol Tartrate [Lopressor 50 mg PO TID 03/02/13 Surgical History: appendectomy, hysterectomy, - - Bilateral carotid endarterectomy,pad surgery with stents. 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 Lives: With Family Smoking Status: Former smoker Tobacco Use: Non-smoker Alcohol: None Drugs: None - *Family History Paternal History Items: Heart Disease Maternal History Items: No pertinent history Review of Systems Constitutional: Denies: Chills, Fever, Weight Change HEENT: Denies: Head Aches, Sinus Congestion, Sinus Drainage Cardiovascular: Denies: Chest Pain, Palpitations Respiratory: Reports: - Gastrointestinal: Reports: - - Complaints of abdominal pain difficult to get the full assessment Genitourinary: Denies: Dysuria Musculoskeletal: Reports: - Skin: Reports: Wounds - Left foot wounds Patient Problems: Active and Suspected Problems Shortness of breath (Acute) Foot ulcer, left (Acute) COPD exacerbation (Acute) - Physical Exam General: Alert, Oriented x3, Cooperative HEENT: Atraumatic, PERRLA, EOMI, Normocephalic Neck: Supple, No Nodes Lungs: - - This breath sounds Cardiovascular: Regular rate, Regular Rhythm Abdomen: Soft, Non Tender Extremities: - - Multiple incisions left leg wound per the nurse just change the wound on the left great toe between the fourth and fifth toes Musculoskeletal: No Tenderness to Palpation of Joints or Extremities Vital Signs Temp Pulse Resp BP Pulse Ox 98.6 F 75 18 132/70 H 99 02/26/17 17:31 02/27/17 07:35 02/27/17 07:35 02/27/17 05:11 02/27/17 07:35 Oxygen Flow Rate 3 Oxygen Delivery Method Nasal Cannula Weight: 114 lb 8 oz Body Mass Index (BMI) 24.7 Finger Stick Blood Glucose 93 Intake and Output for Last 24 Hours Intake Total 420 / 420 120 / 120 Balance 420 / 420 120 / 120 Laboratory Tests Past 24 Hrs WBC 10.1 RBC 3.84 L Hgb 11.1 L Hct 34.1 L MCV 88.8 MCH 28.9 MCHC 32.6 POC Glucose POC Glucose 90 61 L Assessment/Plan Active and Suspected Problems Shortness of breath (Acute) Foot ulcer, left (Acute) COPD exacerbation (Acute) Patient with severe peripheral vascular disease some type of also mesenteric disease. 1. PADneed to get the records to see exactly what has been done at the [facility]. Patient will need a CTA abdomen pelvis with runoff to get a good assessment of where we are from a vascular standpoint. With her previous multiple surgeries she is going to be at significant increased risk of limb loss. But we will see if there is anything we can do to help. We will follow along once this is done to see what can be done here at [place] 2 mesenteric also will review the records from [facility] we will build to look through this on her CT abdomen and pelvis with runoff as well 02/27/17 1136 <Electronically signed by Aurora Hdz MD> Date Aurora Hdz MD Cosigner Signature (if applicable): Date CC: Aurora Hdz MD; Paulette Malloy MD; Shobha Fernandez DPM Signed LOWER EXT ARTERIAL Observed: 02/27/2017 Status: F Source: [place] STUDY 8:21 AM [facility] REPOSITORY [facility] Cardiovascular Services [address] [place] [address] 02/27/1718 MR#: [id number] Acct: [id number] Name: TOSHA ALVARADO Rep #: [id number] : 1950 67 From: Aurora Hdz MD Attending Dr: Mayo GARCIA,SiConnect Status: ADM IN Ordering Dr: Date: 02/27/17 Location: TCU Sex: F C Admitted: 02/26/17 Arterial Study - Arterial Study Arterial Study: Patient: Tosha Guzman Date of scan 02/20/[address] Hdz Scan is left lower extremity ulcers with known diabetes hypertension peripheral vascular disease Interpretation: Right lower extremity shows some pulsatile flow from the thigh slight decrease in the calf decreased down to the ankle and out through the digits segmental pressures a decrease in the thigh at 0.77 noncompressible and the calf unable to get a posterior tibial the dorsalis pedis with a RUPAL 0.57 digit brachial index 0.23. Duplex shows monophasic flow at the dorsalis pedis Left lower extremity again pulsatile flow noted in the thigh decreased down in the calf ankle and flattened at the digits segmental pressures significantly decrease the thigh at 0.66 0.34 posterior tibial 0.34 name in able to get a digit brachial index or dorsalis pedis. Duplex shows monophasic flow the posterior tibial Pression: 1. Right lower extremity with moderate arterial occlusive disease with an RUPAL 0.57 suggestive of femoral-popliteal disease possible proximal disease. Further evaluation as clinically warranted 2. Left lower extremity with severe arterial occlusive disease with an RUPAL 0.34 and monophasic flow. Suggestive of either proximal disease or femoral-popliteal disease. Further evaluation as clinically warranted 02/27/17 0821 <Electronically signed by Aurora Hdz MD> Date Aurora Hdz MD CC: Paulette Malloy MD; Mark Huber MD Date Dictated: 02/27/17817 Date Transcribed: 02/27/17817 Anthropometrist: BAB Signed CBC W/DIFF, AUTOMATED Collected: 02/27/2017 Status: F Source: [place] 7:14 AM [facility] REPOSITORY TYPE CODE TESTS RESULT OUT OF RANGE REFERENCE UNITS LAB L100.1000 4.4-11.0 K/mm3 Normal WBC 10.1 LAB L100.1200 4.2-5.4 M/mm3 Low RBC 3.84 LAB L100.1300 12.0-15.0 g/dl Low HGB 11.1 LAB L100.1400 37-47 % Low HCT 34.1 LAB L100.1500 81-99 fL Normal MCV 88.8 LAB L100.1600 27.0-32.0 pg Normal MCH 28.9 LAB L100.1700 32-36 g/gl Normal MCHC 32.6 LAB L100.1810 11.6-14.6 % Normal RDW CV 14.3 LAB L100.1820 35.1-43.9 fl High RDW SD 45.6 LAB L100.1900 150-450 K/mm3 Normal PLT 263 LAB L100.2000 6.2-12.0 fl Normal MPV 9.7 LAB L100.2100 47-70 % Normal NEUT% 61.4 LAB L100.2200 19-41 % Normal LY% 24.6 LAB L100.2300 0-10 % High MONO% 10.7 LAB L100.2400 0-5 % Normal EO% 1.9 LAB L100.2500 0-1 % Normal BASO% 0.1 LAB L100.2550 0.0-0.9 % High IM GRAN % 1.300 Result Comment: IG% - Immature Granulocytes (promyelocytes, myelocytes and metamyelocytes) > 1% indicates that a LEFT SHIFT is Present. LAB L100.2620 2.0-7.7 X10 3/uL Normal Absolute Neut 6.2 LAB L100.2720 0.83-4.51 X10 3/ul Normal Absolute Lymph 2.48 Performed By: #### L100.0100 #### [facility] [address] [place], [address] BASIC METABOLIC Collected: 02/27/2017 Status: F Source: [place] PROFILE (BMP) 7:14 AM [facility] REPOSITORY TYPE CODE TESTS RESULT OUT OF RANGE REFERENCE UNITS LAB L501.0100 70-110 mg/dL Normal GLU 78 LAB L501.1000 7-18 mg/dL High BUN 24 LAB L501.1100 0.55-1.02 mg/dL Normal 0.67 CREAT,SERUM Result Comment: The validity of the calculated GFR AND GFRAA in patients over 70 years has not been determined. Clinical correlation is essential. LAB L501.1110 >60 mL/min Normal EST GFR 95 Result Comment: Non- GFR Calc LAB L501.1115 >60 mL/min Normal EST GFR - AA 114 Result Comment: GFR Calc LAB L501.1255 ml/min Normal Estimated CRCL 68.63 LAB L501.1300 10-20 RATIO High BUN/CRE 36.0 LAB L501.2200 8.5-10 mg/dL Normal .1 CA 8.7 LAB L501.5300 136-14 mmol/L Low 5 NA 124 LAB L501.5600 3.5-5. mmol/L Normal 1 K 4.9 LAB L501.5900 98-107 mmol/L Low CL 89 LAB L501.6100 21.0-3 mmol/L Normal 2.0 CO2 25.0 LAB L501.6200 5-15 Normal GAP 10 Performed By: #### L500.2500 #### [facility] [address] [place], [address] BEDSIDE GLUCOSE Collected: 02/27/2017 Status: F Source: [place] 7:13 AM [facility] REPOSITORY TYPE CODE TESTS RESULT OUT OF RANGE REFERENCE UNITS LAB L501.080 70-110 mg/dL Normal BEDSIDE GLU 90 Result Comment: MANAGEMENT OF PATIENT CARE PER NURSING PROTOCOL Performed By: #### L501.080 #### [facility] Point of Care [address] [place] [address] BEDSIDE GLUCOSE Collected: 02/27/2017 Status: F Source: [place] 6:45 AM [facility] REPOSITORY TYPE CODE TESTS RESULT OUT OF REFERENCE UNITS RANGE LAB L501.080 70-110 mg/dL Low BEDSIDE GLU 61 Result Comment: MANAGEMENT OF PATIENT CARE PER NURSING PROTOCOL Performed By: #### L501.080 #### [facility] Point of Care [address] [place] [address] HISTORY AND PHYSICAL Observed: 02/26/2017 Status: F Source: [place] EXAM 9:18 PM [facility] REPOSITORY [facility] Medical Records Department [address] [place] [address] History and Physical 02/26/172049 MR#: [id number] Acct: [id number] Name: TOSHA ALVARADO Rep #: [id number] : 1950 67 From: Mark Huber MD PCP: Paulette Malloy MD Status: ADM IN Location: [place] [address] Problem List (1) Shortness of breath Status: Acute (2) Foot ulcer, left Status: Acute (3) COPD exacerbation Status: Acute (4) Peripheral arterial occlusive disease Status: Chronic (5) Hyperlipidemia Status: Chronic (6) Neuropathic pain Status: Chronic (7) Insomnia Status: Chronic (8) Fracture of fifth toe, left, closed Status: Acute Qualifiers: (9) Osteoporosis Status: Chronic (10) Seizure disorder Status: Chronic (11) Hypertension Status: Chronic Qualifiers: (12) Diabetes Status: Chronic History of Present Illness Date of Admission: 02/26/17 Chief Complaint: Here for rehabilitation, strengthening, wound care, prior to discharge home with family. The patient is a 67 year old Female with below past medical history presented to [facility] Emergency Department 02/18/2017 with shortness of breath. 02/15/2017 CTA chest negative for pulmonary embolism, severe stenosis right renal artery stent, SMA stent graft, celiac artery aneurysm. 02/18/2017 Chest X-ray hyperinflation, old bilateral rib fractures. 02/18/2017 EKG Normal sinus rhythm, Normal EKG. 02/18/2017 X-ray left foot, 5th digit nondisplaced fracture. Increasing oxygen demand. Dyspnea on exertion. Left 4th toe pain, redness x 2 months. 4th toe ulcer with purulent drainage. Albuterol, Atrovent aerosol given. Morphine, Zofran IV. Hemoglobin 11.5, sodium 132, Cr 0.54. Troponin negative, CRP negative, ESR 8. Ancef IV given. 02/18/2017 Admit to Hospital. Duoneb, Solu-Medrol, Levaquin for COPD exacerbation. Consult podiatry regarding left foot ulcer, left 5th toe fracture. 02/19/2017 Dr. Fernandez recommended evaluation of arterial circulation. IV antibiotics for left foot cellulitis. Santyl for left foot ulcer debridement. 02/20/2017 RUPAL doppler confirming PAOD bilateral lower extremities. 02/26/2017 EEG negative for seizure, positive for slowing seen with encephalopathy. Patient reported staring seizures in hospital, none witness, patient took seizure medications in past. COPD improved, antibiotics stopped. Left foot ulcer not infected, antibiotics stopped. PAOD needs follow up with vascular surgeon. 02/26/2017 Admit to TCU for rehabilitation, strengthening, wound care, prior to discharge home with family. Past Medical History Past Medical History (Chronic Problems): Chronic Problems Other specified peripheral vascular diseases (Chronic) Hammer toe of left foot (Chronic) Type 2 diabetes mellitus with diabetic polyneuropathy (Chronic) Peripheral arterial occlusive disease (Chronic) Hyperlipidemia (Chronic) Neuropathic pain (Chronic) Insomnia (Chronic) Chronic anticoagulation (Chronic) Osteoporosis (Chronic) Seizure disorder (Chronic) Peripheral vascular disease (Chronic) Cerebrovascular disease (Chronic) Status post acute ischemic stroke no residual deficit Moderate carotid disease Bilateral carotid endarterectomy Hypertension (Chronic) COPD (chronic obstructive pulmonary disease) (Chronic) Tobacco user (Chronic) Dyslipidemia (Chronic) Diabetes (Chronic) DM2 (diabetes mellitus, type 2) (Chronic) Hyponatremia (Chronic) Allergies levofloxacin [From Levaquin] Allergy (Verified 02/15/17 14:50) Other Red streak up her arm and itiching pineapple [Pineapple] Allergy (Verified 02/15/17 14:50) Swelling pregabalin [From Lyrica] Allergy (Verified 02/15/17 14:50) MAKES ME FREAK OUT Sulfa (Sulfonamide Antibiotics) Allergy (Verified 02/15/17 14:50) Anaphylaxis cyclobenzaprine [From Flexeril] Adverse Reaction (Verified 02/15/17 14:50) Vomiting duloxetine [From Cymbalta] Adverse Reaction (Verified 02/15/17 14:50) Vomiting sertraline HCl [From Zoloft] Adverse Reaction (Verified 02/15/17 14:50) MAKES ME CRAZY makes me crazy Home Medications: Ambulatory Orders Medication Instructions Recorded Albuterol Sulfate [Proair Hfa] 2 puff INHALATION TID PRN 03/02/13 Metoprolol Tartrate [Lopressor 50 mg PO TID 03/02/13 Surgical History: appendectomy, hysterectomy, - - Carotid endarterectomy,pad surgery with stents. 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 Lives: With Family Smoking Status: Former smoker Tobacco Use: Non-smoker Alcohol: None Drugs: None - *Family History Paternal History Items: Heart Disease Maternal History Items: No pertinent history Review of Systems Constitutional: Denies: Chills, Fever, Weight Change HEENT: Denies: Head Aches, Sinus Congestion, Sinus Drainage Cardiovascular: Denies: Chest Pain, Palpitations Respiratory: Denies: Cough, Shortness of breath at rest, Sputum production Gastrointestinal: Denies: Abdominal Pain, Nausea, Vomiting Genitourinary: Denies: Dysuria Musculoskeletal: Denies: Joint Pain, Joint Tenderness Skin: Denies: Rash, Wounds Neurological: Denies: Numbness, Tingling, Focal weakness Psychiatric: Denies: Anxiety, Depression, Homicidal Ideations, Suicidal Ideations Hematologic/ Lymphatic: Denies: Easy Bruising, Easy Bleeding VTE Information - Inpt Only VTE Present on Admission: No VTE Mechan Device Prophylaxis: Knee High JER Hose VTE Pharm Prophylaxis ordered?: Yes Patient Problems: Active and Suspected Problems Shortness of breath (Acute) Foot ulcer, left (Acute) COPD exacerbation (Acute) - Physical Exam General: Alert, Oriented x3, Cooperative HEENT: Atraumatic, PERRLA, EOMI, Normocephalic Neck: Supple, No JVD, Negative Carotid Bruits Lungs: Clear to auscultation, Normal air movement Cardiovascular: Regular rate, No murmurs Abdomen: Bowel Sounds Present, Soft, Non Tender Extremities: No edema, Capillary Refill Less than 3 Seconds, - - Left foot wrapped in dressing. Skin: No rashes, No breakdown Musculoskeletal: No Tenderness to Palpation of Joints or Extremities Neurological: Cranial nerves II-XII grossly intact Psych/Mental Status: Normal Affect, Appropriate Vital Signs Temp Pulse Resp BP Pulse Ox 98.6 F 76 16 109/62 95 02/26/17 17:31 02/26/17 18:51 02/26/17 18:51 02/26/17 17:31 02/26/17 18:51 Oxygen Flow Rate 3 Oxygen Delivery Method Nasal Cannula Weight: 51.936 kg Finger Stick Blood Glucose 93 Intake and Output for Last 24 Hours Intake Total 300 / 300 Balance 300 / 300 Assessment/Plan Active and Suspected Problems Shortness of breath (Acute) Foot ulcer, left (Acute) COPD exacerbation (Acute) 67 year old female with below past medical history hospitalized for COPD exacerbation, complicated by left foot ulcer requiring wound care, significant PAOD, admitted to TCU for rehabilitation, strengthening, prior to discharge home with family. * Debility - PT/OT. * Pain - Tylenol 1000MG Q8H PRN mild pain, Oxycodone 10MG Q4H PRN severe pain (resident requested oxycodone). * Bowel - Miralax 17GM daily, Senna/colace 2 tablets BID, Dulcolax 10MG PO daily PRN. * Pneumonia vaccination - Administer Prevnar 13 and/or Pneumovax 23 as necessary. * DVT prophylaxis - not necessary, already on Pradaxa 150MG BID. * COPD - Pulmicort 0.5MG inhaled Q12H, Mucomyst 800MG BID, Albuterol 2.5MG Q4H PRN, Dunoeb 3ML Q4H and Q4H PRN, Prednisone 20MG BID, Singulair 10MG Daily. * Calcium deficiency - TUMS 500MG TID. * Left foot ulcer - Santyl topically daily, Podiatry following. * PAOD - Pradaxa 150MG BID, follow up with Vascular surgery. * Neuropathic pain - Gabapentin 600MG TID. * Hypertension - Metoprolol 50MG TID, Hydralazine 25MG TID, Lisinopril 40MG daily. * GI prophylaxis - Lactobacillus 1 tablet BID. * Anxiety - Lorazepam 0.5MG BID PRN. * GERD - Pantoprazole 40MG BID thru 03/12/2017, then 40MG daily, MOM 30ML daily PRN. * Nausea - Phenergan 25MG Q8H PRN. * Hyponatremia - Sodium chloride 1GM daily. * Insomnia - Trazodone 50MG QHS PRN. 02/26/178 <Electronically signed by Mark Huber MD> Date Mark Huber MD Cosigner Signature: Date (if applicable) CC: Paulette Malloy MD; Mark Huber MD Signed ALLERGIES ALLERGIES DATE TYPE / NAME / CODE REACTION SEVERITY SOURCE CODE 12/26/2017 Drug sertraline MAKES ME CRAZY Unknown [place] Allergy/41 HCl/[id number](RXNORM Community [id number]) Repository 12/26/2017 Drug Sulfa (Sulfonamide Anaphylaxis Unknown [place] Allergy/41 Antibiotics)/[id number] Community 9097023([facility](RXNORM) [facility]) Repository 12/26/2017 Drug levofloxacin/[id number] Other Unknown [place] Allergy/41 99(RXNORM) Community 6699137([facility]) Repository 12/26/2017 Drug duloxetine/[id number] Vomiting Unknown [place] Allergy/41 (RXNORM) Community 0440990([facility]) Repository 12/26/2017 Drug pregabalin/[id number] Other Unknown [place] Allergy/41 (RXNORM) Community 4468736([facility]) Repository 04/21/2017 Drug cyclobenzaprine/F0060 Vomiting Unknown [place] Allergy/41 43179(RXNORM) Community 7451367([facility]) Repository 04/21/2017 Drug pineapple/[id number]( Swelling Unknown [place] Allergy/41 RXNORM) Community 6039066([facility]) Repository 12/24/2016 DRUG DULOXETINE Vomiting [facility]/41 Clinic Main 9053125([facility]) Repository 12/24/2016 DRUG LORAZEPAM [facility] 6481573([facility] [place] [facility]) Repository 12/24/2016 DRUG SERTRALINE HCL Mental Chg [place] INGREDI/41 Clinic Main 9126988( [facility]) Repository 08/05/2016 DRUG CYCLOBENZAPRINE Vomiting [place] [address] Clinic Main 3591330( [facility]) Repository 11/24/2013 DRUG PINEAPPLE HIVES [place] [address] Clinic Main 1997135( [facility]) Repository 04/29/2012 DRUG PREGABALIN INTOLERANCE [place] [address] Clinic Main 3818138( [facility]) Repository 10/16/2011 Drug SULFA (SULFONAMIDE HIVES [place] Class/4195 ANTIBIOTICS) Clinic Main 54907(SN [facility] ED [facility]) Repository 05/17/2010 SEASONAL ALLERGIES OTHER: SEE C [place] 1008082( Clinic Main OMED CT) [place] Repository NG/4773310 CYCLOBENZAPRINE [facility] Repository NG/0142768 DULOXETINE [facility]) Repository NG/2096219 LORAZEPAM [facility] 06([facility]) Repository NG/1707804 PREGABALIN [facility] 06([facility]) Repository NG/0310184 PINEAPPLE [facility] 06([facility]) Repository NG/1510711 SEASONAL ALLERGIES [facility] 06([facility]) Repository NG/0800437 SERTRALINE HCL [facility] 06([facility]) Repository NG/8191598 SULFA (SULFONAMIDE [facility] 06(SNOMED ANTIBIOTICS) [facility]) Repository ENCOUNTERS ENCOUNTERS ADMIT/DISCHARGE ACCOUNT NUMBER ADMITTING ENCOUNTER LOCATION SOURCE CLASS 01/24/2018 [id number] Ambulatory [facility] ding:CT Repository 12/26/2017/12/27/19 [id number] Emergency [address] ding:ED Repository 12/02/2017/12/05/19 [id number] Ambulatory [address] Repository 10/18/2017/10/19/19 [id number] Ambulatory BMSBuilding: [address] Repository 10/15/2017/10/16/19 [id number] Ambulatory [address] Repository 10/02/2017/10/04/19 [id number] Ambulatory [address] Repository 09/25/2017/09/26/19 [id number] Ambulatory [address] Repository 09/20/2017 [id number] Ambulatory [facility] ding:MEDOUTP Repository 08/31/2017/09/24/19 [id number] Mark Huber Inpatient [place] [address] ding:TCURoom Repository : KQI89Xqa: 1 08/28/2017 [id number] David, Ambulatory BMSBuilding: [place] Gopal BMS.[facility] Repository 08/28/2017 [id number] David, Ambulatory BMSBuilding: [place] [facility]opal BMS.[facility] Repository 08/28/2017 [id number] David, Ambulatory BMSBuilding: [place] [facility]opal BMS.[facility] Repository 08/28/2017 [id number] David, Ambulatory BMSBuilding: [place] [facility]opal BMS.[facility] Repository 08/28/2017/09/01/19 [id number] David, Inpatient [place] 18 Gopal [facility] ding:VG8Dbgn Repository : WD764Qjg: 1 07/16/2017/07/17/19 [id number] Emergency [address] ding:ED Repository 07/13/2017/07/14/19 [id number] Emergency [address] ding:ED Repository 07/11/2017 [id number] Ambulatory [facility] MEDICAL Repository CENTERBuildi ng:CAGWS 06/29/2017/07/02/19 [id number] Ambulatory [address] Repository 06/20/2017/06/21/19 [id number] Ambulatory ABuilding:FUNMILAYO Long 18 CCRoom: Health 0014Bed: A [facility] Repository 06/12/2017 [id number] Ambulatory [facility] ding: Repository 06/05/2017/06/06/19 [id number] Ambulatory [address] Repository 06/05/2017/06/11/19 [id number] Ambulatory [place] 18 [facility] ding:WC Repository 06/03/2017/06/05/19 [id number] Ambulatory [address] Repository 05/23/2017/05/26/19 [id number] WILDER GARCIA, Inpatient ABuilding:GREGORIO Long 18 [facility] Encounter CURoom: Health 2704Bed: A [facility] Repository 05/16/2017/05/17/19 [id number] Emergency [place] Carloz[address] ding:ED Repository 05/10/2017 [id number] [facility] Repository 04/21/2017/04/22/19 [id number] Emergency [place] ding:ED Repository 04/17/2017/05/12/19 [id number] Ambulatory [place] ding:WC Repository 04/17/2017/04/18/19 [id number] Ambulatory BMSBuilding: [place] 18 BMS.[facility] Repository 04/16/2017 [id number] Ambulatory BMSBuilding: [place] BMS.[facility] Repository 04/10/2017/04/10/19 [id number] Ambulatory [place] Carloz[address] ding:WC Repository 04/05/2017 [id number] Ambulatory [facility] ding:CLSP Repository 03/22/2017 [id number] [facility] Repository 03/21/2017/03/21/19 [id number] Ambulatory [address] Repository 03/13/2017/03/13/19 [id number] Ambulatory [place] Carloz [address] [place] [address] ding:WC Repository 02/26/2017/03/06/19 [id number] Mark Huber Inpatient [place] 18 [facility] ding:TCURoom Repository : RPM20Vhn: 1 PAYERS PAYERS ENCOUNTER GUARANTOR PAYER SUBSCRIBER SOURCE 01/24/2018 TOSHA ROJAS Primary TOSHA Carty [id number] Insurance:[facility] NICHOLSDOB: Community [address] *IN [facility] [id number] [place] Number: Repository [address]Qot: 330 [id number] [phone] (HP) Date:4979-56-76EU [address] [address]JY: 01/24/2018 Secondary NOT GIVENUNK [place] Insurance:SELF PAY [facility] Number: Effective Repository Date:2018-01-16 12/26/2017 TOSHA S ROJAS Primary TOSHA S ROJAS [place] [id number] Insurance:[facility] ABIGAILOLSDOB: Community [address] *IN [facility] [id number] [place] Number: Repository [address]Wwg: 330 [id number] [phone] () Date:5243-83-82XX [address] [address]SA: 12/26/2017 Secondary NOT GIVENUNK [place] Insurance:SELF PAY [facility] Number: Effective Repository Date:2017-12-26 10/18/2017 TOSHA S ROJAS Primary TOSHA S ROJAS [place] [id number] Insurance:[facility] ABIGAILOLSDOB: Community [address] *IN [place] 350302-12-[address], [place] Number: Repository [address]Tsl: 330 [id number] [phone] () Date:5389-54-98OP [address] [address]UH: 10/18/2017 Secondary NOT GIVENUNK [place] Insurance:SELF PAY [facility] Hospital Number: Effective Repository Date:2017-10-18 09/20/2017 TOSHA S ROJAS Primary TOSHA S ROJAS [place] [id number] Insurance:[facility] ABIGAILOLSDOB: Community [address] *IN [place] 350302-12-[address] [place] Number: Repository [address]Xqm: 330 [id number] [phone] (HP) Date:4114-20-66JW [address] [address]XC: 09/20/2017 Secondary NOT GIVENUNK [place] Insurance:SELF PAY [facility] Number: Effective Repository Date:2017-09-20 08/31/2017 TOSHA ROJAS Primary TOSHA ROJAS [place] [id number] [facility] NICHOLSDOB: Community [address] *IN [facility] [id number] [place] Number: Repository [address]Wjy: 330 [id number] [phone] () Date:9801-84-82CJ [address] [address]MG: 08/31/2017 Secondary NOT GIVENUNK [place] Insurance:SELF PAY [facility] Number: Effective Repository Date:2017-08-31 08/28/2017 TOSHA S BOB Primary TOSHA ROJAS [place] [id number] Insurance:[facility] NICHOLSDOB: Community [address] *IN [facility] [id number] [place] Number: Repository [address]Lqk: 330 [id number] [phone] () Date:5246-46-46VP[address] [address]ZU: 08/28/2017 Secondary NOT GIVENUNK [place] Insurance:SELF PAY [facility] Number: Effective Repository Date:2017-08-28 08/28/2017 TOSHA S BOB Primary TOSHA S BOB [place] [id number] Insurance:[facility] NICHOLSDOB: Community [address] *IN [facility] [id number] [place] Number: Repository [address]Cfp: 330 [id number] [phone] () Date:3776-03-19RA [address] [address]PN: 08/28/2017 Secondary NOT GIVENUNK [place] Insurance:SELF PAY Community [facility] Number: Effective Repository Date:2017-08-28 08/28/2017 TOSHA S ROJAS Primary TOSHA S ROJAS [place] [id number] Insurance:[facility] ABIGAILOLSDOB: Community [address] *IN [place] [address]302-12-[address] [place] Number: Repository [address]Cgl: 330 [id number] [phone] () Date:1188-36-71RB[address] [address]BV: 08/28/2017 Secondary NOT GIVENUNK [place] Insurance:SELF PAY [facility] Number: Effective Repository Date:2017-08-28 08/28/2017 TOSHA S ROJAS Primary TOSHA S ROJAS [place] [id number] Insurance:[facility] ELIZABETHDOB: Community [address] *IN [place] 350302-12-[address] [place] Number: Repository [address]Yrr: 330 [id number] [phone] () Date:3897-27-46CT[address] [address]AG: 08/28/2017 Secondary NOT GIVENUNK [place] Insurance:SELF PAY [facility] Number: Effective Repository Date:2017-08-28 08/28/2017 TOSHA S ROJAS Primary TOSHA S ROJAS [place] [id number] Insurance:[facility] JAZB: Community [address] *IN [place] 350302-12-[address] [place] Number: Repository [address]Mkn: 330 [id number] [phone] () Date:0217-69-76GP[address] [address]NT: 08/28/2017 Secondary NOT GIVENUNK [place] Insurance:SELF PAY [facility] Number: Effective Repository Date:2017-08-15 07/16/2017 TOSHA S ROJAS Primary TOSHA S ROJAS [place] [id number] Insurance:[facility] ELIZABETHDOB: Community [address] *IN [facility] [id number] Number: Repository [address]Jjc: 330 [id number] (HP) Date:2403-23-95DU[address] [address]HZ: 07/16/2017 Secondary NOT GIVENUNK [place] Insurance:SELF PAY [facility] Number: Effective Repository Date:2017-07-16 07/13/2017 TOSHA S ROJAS Primary TOSHA S ROJAS [place] [id number] Insurance:[facility] CLINICDOB: Community [address] *IN [facility] [id number] Number: Repository [address]Drv: [id number] [phone] Date:9240-07-75AQ [address] () [address] [place] [address]SU: 07/13/2017 Secondary NOT GIVENUNK [place] Insurance:SELF PAY [facility] Number: Effective Repository Date:2017-07-13 07/11/2017 TOSHA S ROJAS Primary TOSHA S ROJAS [facility] NICHOLSDOB: Insurance:[facility] NICHOLSDOB: [facility] [id number] Repository [address] Number: [address] [place] [address] [id number] [phone]: 330) Date: () 07/11/2017 Secondary TOSHA S ROJAS [facility] Insurance:[facility] NICHOLSDOB: Health System MEDICAIDPolicy [id number] Repository Number: [id number] Date: 06/20/2017 TOSHA S Primary Insurance:[facility] OB: DUALPolicy Number: OB: Repository [id number] Date:2017-06-13 - [address] [place] [address] [id number] [address] [place] [phone]: ([phone]) Name:[facility] [address]Tfv: (HP) [address] [place] [address] [phone]: (800) (HP) 000-0000 (WP) 06/12/2017 TOSHA S ROJAS Primary TOSHA S ROJAS [place] [id number] Insurance:[facility] NICHOLSDOB: Community [address] *IN [facility] [id number] Number: Repository [address]Kzu: [id number] [phone] Date:1599-59-17UQ [address] (HP) [address] [place] [address]VU: 06/12/2017 Secondary NOT GIVENUNK [place] Insurance:SELF PAY [facility] Number: Effective Repository Date:2017-06-11 06/05/2017 TOSHA S ROJAS Primary TOSHA S ROJAS [place] [id number] [facility] [address] *IN [facility] [id number] Number: Repository [address]Ryf: [id number] [phone] Date:7018-49-50DM [address] (HP) [address] [place] [address]JY: 06/05/2017 Secondary NOT GIVENUNK [place] Insurance:SELF PAY [facility] Number: Effective Repository Date:2017-05-12 05/23/2017 TOSHA S Primary Insurance:[facility] OB: DUALPolicy Number: OB: Repository [id number] Date:2017-05-12 - [address] [place] [address] [id number] [address] [place] [address] 68693Umk: (330) Name:[address]Ial: (HP) [address] [place] [address] [phone] 26540FK: (800) (HP) 000-0000 (WP) 05/23/2017 Secondary [facility] Insurance:[facility]ICARE [facility] PART APolicy Number: OB: Repository [id number] Date:2017-05-14 - [address] [id number] [place] [address] Name:MMail Code AG 41900Kxz: (967) [phone] [id number], [place] (HP)Tel: [phone]: (WP) [phone] 05/16/2017 TOSHA ROJAS Primary TOSHA S ROJAS [place] [id number] Insurance:[facility] ABIGAILOLSDOB: Community [address] *IN [facility] [id number] Number: Repository [address]Ixf: [id number] [phone] Date:7493-67-75UW [address] (HP) [address] [place] [address]UC: 05/16/2017 Secondary NOT GIVENUNK [place] Insurance:SELF PAY [facility] Number: Effective Repository Date:2017-05-16 05/10/2017 TOSHA ROJAS Primary TOSHA S BOB [place] [id number] Insurance:[facility] CLINICDOB: Community [address] *IN [facility] [id number] Number: Repository [address]Hhj: [id number] [phone] Date:7503-62-40CM [address] (HP) [address] [place] [address]QD: 05/10/2017 Secondary NOT GIVENUNK [place] Insurance:SELF PAY [facility] Hospital Number: Effective Repository Date:2017-04-17 04/21/2017 TOSHA S ROJAS Primary TOSHA S BOB [place] [id number] Insurance:[facility] ABIGAILOLSDOB: Community [address] *IN [facility] [id number] Number: Repository [address]Oad: [id number] [phone] Date:1053-19-28RB [address] () [address] [place] [address]LK: 04/21/2017 Secondary NOT GIVENUNK [place] Insurance:SELF PAY [facility] Number: Effective Repository Date:2017-04-21 04/17/2017 TOSHA S BOB Primary TOSHA S BOB [place] [id number] Insurance:[facility] ABIGAILOLSDOB: Community [address] *IN [facility] [id number] [place] Number: Repository [address]Hov: [id number] [phone] Date:0948-19-50EB [address] () [address] [place] [address]RF: 04/17/2017 Secondary NOT GIVENUNK [place] Insurance:SELF PAY [facility] Number: Effective Repository Date:2017-04-11 04/17/2017 TOSHA S ROJAS Primary TOSHA S BOB [place] [id number] Insurance:[facility] ELIZABETHDOB: Community [address] *IN [facility] [id number] [place] Number: Repository [address]Huf: [id number] [phone] Date:3837-57-45HK [address] ) [address] [place] [address]JS: 04/17/2017 Secondary NOT GIVENUNK [place] Insurance:SELF PAY [facility] Number: Effective Repository Date:2017-04-08 04/16/2017 TOSHA S ROJAS Primary TOSHA S ROJAS [place] [id number] Insurance:[facility] ABIGAILOLSDOB: Community [address] *IN [place] 350302-12-[address] [place] Number: Repository [address]Rla: [id number] [phone] Date:5643-46-09XE [address] () [address] [place] [address]RR: 04/16/2017 Secondary NOT GIVENUNK [place] Insurance:SELF PAY [facility] Number: Effective Repository Date:2017-04-16 04/10/2017 TOSHA S ROJAS Primary TOSHA S ROJAS [place] [id number] Insurance:[facility] NICHOLSDOB: Community [address] *IN [place] 350302-12-[address], [place] Number: Repository [address]Ftt: [id number] [phone] Date:2021-04-02FM [address] () [address] [place] [address]HO: 04/10/2017 Secondary NOT GIVENUNK [place] Insurance:SELF PAY [facility] Number: Effective Repository Date:2017-03-14 04/05/2017 Tosha S Rojas Primary Tosha S Rojas [place] [id number] Insurance:[facility] NicholsDOB: Community [address] *[address], [place] Number: Repository [address]Xfq: [id number] [phone] Date:7033-20-02VP [address] () [address] [place] [address]PP: 04/05/2017 Secondary NOT GIVENUNK [place] Insurance:SELF PAY [facility] Number: Effective Repository Date:2017-04-04 03/22/2017 Tosha S Rojas Primary Tosha S Rojas [place] [id number] Insurance:[facility] NicholsDOB: Community [address] *IN [place] [address]302-12-[address], [place] Number: Repository [address]Ftx: [id number] [phone] Date:7558-09-56DQ [address] () [address] [place] [address]OR: 03/22/2017 Secondary NOT GIVENUNK [place] Insurance:SELF PAY [facility] Number: Effective Repository Date:2017-03-12 03/13/2017 Tosha Rojas Primary Tosha Carty [id number] Insurance:[facility] NicholsDOB: Community [address] *IN [facility] [id number] Number: Repository [address]Kzy: [id number] [phone] Date:0650-37-23QX [address] -[address] () [address] [place] [address]MA: 03/13/2017 Secondary NOT GIVENUNK [place] Insurance:SELF PAY [facility] Number: Effective Repository Date:2017-03-13 02/26/2017 Tosha S Bob Primary Tosha S Bob [place] [id number] Insurance:[facility] AbigailolsDOB: Community [address] *IN [facility] [id number] Number: Repository [address]Ynu: [id number] [phone] Date:6794-15-42MX [address] () [address] [place] [address]ZO: 02/26/2017 Secondary NOT GIVENUNK [place] Insurance:SELF PAY [facility] Number: Effective Repository Date:2017-02-26
== END ==
PROVIDERS: Family Provider Internal Medicine; PCP Internal Medicine; Referring Provider Surgery Vascular Surgery; Visit Provider Surgery Vascular Surgery
DX: T82.398A Other mechanical complication of other vascular grafts, initial encounter (principal); I70.221 Atherosclerosis of native arteries of extremities with rest pain, right leg
CPT/HCPCS: 75635; Q9967

== ENCOUNTER → 2019-03-09 09:44 | Outpatient (CLI) | payer MEDICARE, SELFPAY ==
[2019-03-04 14:42] VITALS: BMI 23.1
--- NOTE | 2019-03-09 09:50 | CDU_ITS ---
Reason For Study: Stroke Rt. Velocities/BP Lt. Velocities/BP Prox CCA 93/11 cm/sec. Prox CCA 117/23 cm/sec. Mid CCA 75/13 cm/sec. Mid CCA 87/22 cm/sec. Dist CCA 59/15 cm/sec. Dist CCA 84/17 cm/sec. Prox ICA 76/28 cm/sec. Prox ICA 82/20 cm/sec. Mid ICA 119/34 cm/sec. Mid ICA 104/38 cm/sec. Dist ICA 89/23 cm/sec. Dist ICA 96/32 cm/sec. Rt. ICA/CCA = 1.6. Lt. ICA/CCA = 1.2. Prox ECA 53 cm/sec. Prox ECA 39/5 cm/sec. Rt. Vert. 83/15 cm/sec. Lt. Vert. 74/30 cm/sec. Right Extracranial There is heterogeneous, irregular atherosclerotic plaque noted in the right common carotid artery. There is heterogeneous, irregular atherosclerotic plaque noted in the right internal carotid artery. There is intimal thickening but no significant atherosclerotic plaque noted in the right external carotid artery. Antegrade flow is noted in the right vertebral artery. Left Extracranial There is heterogeneous, irregular atherosclerotic plaque noted in the left common carotid artery. There is heterogeneous, smooth atherosclerotic plaque noted in the left internal carotid artery. There is homogeneous, irregular atherosclerotic plaque noted in the left external carotid artery. Antegrade flow is noted in the left vertebral artery. Procedure Carotid Duplex 55029. Exam performed in department. Interpretation Summary Mild (<50%) stenosis right extracranial internal carotid. Mild (<50%) stenosis left extracranial internal carotid. Flow within the vertebral arteries is antegrade bilaterally. Ordering Physician: Link Burgos Referring Physician: Irasema Jonas Performed By: Coni Gallagher, RDCS, RVT
--- NOTE | 2019-03-09 09:51 | ART_ITS ---
Reason For Study: Atherosclerosis Procedure A bilateral lower extremity continuous wave Doppler with analog waveform analysis and ankle brachial indexes. Right Segmental Pressures Right brachial= 154mmHg. Right posterior tibial artery = 100mmHg. Right dorsalis pedis artery = 107mmHg. Right digit = 64 mmHg. Indices The right ankle brachial index by the posterior tibial artery is 0.65. The right ankle brachial index by the dorsalis pedis is 0.69. The right digital-brachial index is 0.42. Interpretation Summary 1. Right leg with moderate occlussive disease and RUPAL 0.69 and DBI 0.42. Ordering Physician: MD Link Burgos Referring Physician: Link Burgos Performed By: Coni Gallagher RDCS/RVT
== END ==
PROVIDERS: PCP Internal Medicine; Referring Provider Surgery Vascular Surgery; Visit Provider Surgery Vascular Surgery
DX: I70.245 Atherosclerosis of native arteries of left leg with ulceration of other part of foot (principal); I70.211 Atherosclerosis of native arteries of extremities with intermittent claudication, right leg; I10 Essential (primary) hypertension; E11.59 Type 2 diabetes mellitus with other circulatory complications; R10.9 Unspecified abdominal pain; Z99.81 Dependence on supplemental oxygen; Z87.891 Personal history of nicotine dependence; Z86.73 Personal history of transient ischemic attack (TIA), and cerebral infarction without residual deficits
CPT/HCPCS: 93880; 93922

== ENCOUNTER 2019-05-29 10:00 | Inpatient (IN) | payer MEDICARE, MEDICAID, SELFPAY ==
[2019-03-04 14:42] VITALS: BMI 23.1
[2019-05-29] VITALS (37 sets, daily range): BP systolic 75–170; BP diastolic 44–95; PULSE 67–99; RESP 8–22; TEMP 36.3–36.9; O2SAT 83–100; BMI 24.6
--- NOTE | 2019-05-29 | HIP_PTH ---
PATIENT: MEME JOHNSON LOC: U U#:[id number] AGE/SX: 69/F ROOM: [facility] RE05/29/[address]: Dr. Drea Jones MD : 1950 BED: 1 DIS: 06/01/2019 SPEC #: [id number] RECD: 05/30/19 00:37 STATUS: ANUJA REQ #: [id number] MATTHEW: 05/29/19 00:[address]: Abhishek Winters DEPT: SURGICAL PATHOLOGY RECD BY: Roland Damon ENTERED: 06/01/19 10:06 SP TYPE: TOTAL HIP OTHR DR: MD Dr. Red Koehler MD Dr. Mark Tereletsky, DO Dr. Nana Yaa Koram, MD Dr. Rodney Miller, MD Tissues: Hip, NOS Procedures: Decalcification bone/plaque Surgery Specimen Level IV Comments: @ Ordering doctor for DEC edited from to @ by IVETH at 06/01/19 1047 @ Ordering doctor for SUIV edited from to @ by IVETH at 06/01/19 1047 @ Submitting doctor edited from to @ by IVETH at 06/01/19 1047 HEADER OPERATION: Left hip hemiarthroplasty, cemented PRE-OP DIAGNOSIS: Fractured left hip TISSUE SUBMITTED: Left femoral head bone and soft tissue MICROSCOPIC DIAGNOSIS Left hip fracture, total hip resection: Consistent with organizing fracture callous. Trilineage hematopoiesis. AM:kai 06/04/19 MICROSCOPIC DESCRIPTION Slides are reviewed. GROSS DESCRIPTION Received is one container labeled with the patient's name and designated left femoral head bone and soft tissue. The specimen consists of a femoral head measuring 4 x 4 x 3 cm. The articular surface is smooth. A small piece of soft tissue is noted at the top of the femoral head measuring 1.5 x 1 x 0.2 cm. Resection margin is irregular and hemorrhagic. Also present in the specimen container are multiple detached pieces of bone measuring in aggregate 4.5 x 4 x 1.5 cm. 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 / SJ:kai 06/01/19 TC:5 CPT: 50479, 79219
--- NOTE | 2019-05-29 10:09 | ED.DCSUM_ITS ---
History of Present Illness Chief Complaint: Fall Informant: Patient Onset: Today Current Severity: Moderate Maximum Severity: Moderate Narrative: Patient presents after a fall at home. She is a left above-knee amputation. She states she was trying to transfer when she fell. She did land on her left stump and then on her left shoulder. She states her left arm was wrapped behind her back when she fell. She complaining of pain through the left hip and left upper arm. She denies striking her head or loss of consciousness. - Past Medical History (1) CHF (congestive heart failure) Status: Chronic (2) COPD (chronic obstructive pulmonary disease) Status: Chronic (3) Seizures Status: Chronic (4) Diabetes Status: Chronic (5) Essential (primary) hypertension Status: Chronic (6) Hyperlipidemia Status: Chronic (7) Peripheral arterial occlusive disease Status: Chronic Past Medical History - Allergies and Home Meds Allergies/Adverse Reactions: Allergies levofloxacin [From Levaquin] Allergy (Verified 05/29/19 10:10) Other Red streak up her arm and itiching pregabalin [From Lyrica] Allergy (Verified 05/29/19 10:10) Other Sulfa (Sulfonamide Antibiotics) Allergy (Verified 05/29/19 10:10) Anaphylaxis duloxetine [From Cymbalta] Adverse Reaction (Verified 05/29/19 10:10) Vomiting sertraline HCl [From Zoloft] Adverse Reaction (Verified 05/29/19 10:10) MAKES ME CRAZY makes me crazy Primary Care Physician: Irasema Jonas MD [Primary Care Provider] - Prior records reviewed: Yes Surgical History: appendectomy, hysterectomy, - - Bilateral carotid endarterectomy,pad surgery with stents. Appears some type of either mesenteric stent or mesenteric bypass or aortic surgery Left femoral to distal bypass Smoking Status: Current every day smoker - Family History Paternal Family History: Family History (Last Reviewed 04/17/17 @ 14:[address] Red Millan MD) Mother CVA (cerebral vascular accident) Family History: Reports: Heart Disease Maternal Family History: Family History (Last Reviewed 04/17/17 @ 14:[address] Red Millan MD) Mother CVA (cerebral vascular accident) Family History: Reports: No pertinent history Review of Systems General: Denies: Chills, Fever Eyes: Denies: Visual changes - bilaterally ENT: Denies: Bilateral ear pain Cardiovascular: Denies: Chest pain Respiratory: Denies: Dyspnea, Cough Gastrointestinal: Reports: Nausea. Denies: Abdominal pain, Vomiting, Diarrhea Genitourinary: Denies: Dysuria Musculoskeletal: Reports: Extremity Pain Neurological: Denies: Headache Hematologic: Denies: Easy bruising, Easy bleeding Allergy: Denies: Uticaria Physical Exam Vital Signs/Narrative: Vital Signs Temp Pulse Resp BP Pulse Ox 05/29/19 10:01 98.0 F 70 17 170/89 H 93 Inital Vital Signs reviewed: Yes General: Well nourished, Well developed Head: Normocephalic ENT: Moist mucous membranes Neck: Supple Cardiovascular: Regular rate, Regular rhythm Respiratory: No distress, CTA bilaterally Abdomen: Soft, Nontender Back: - - No thoracic or lumbar tenderness on exam. Extremities: - - Tenderness throughout the left humerus region. No obvious deformity. Mild tenderness of the left hip and over the left upper thigh. Decreased range of motion left upper extremity secondary to pain. Neurological: Alert, Oriented x3 Psychological: Normal affect Diagnostic/Tx/Re-eval Left humerus x-rays reveal proximal humerus fracture. No dislocation. Pelvis and left femur x-rays reveal a left femoral neck fracture. Impressions Hip/Pelvis X-Ray 05/29/19 10:37 IMPRESSION: There is displaced fracture of the left lower neck. Electronically Signed: Nida Baum, at 11:17 EDT Tel , Service support , Humerus X-Ray 05/29/19 10:37 IMPRESSION: There is a comminuted nondisplaced fracture of the proximal metaphysis of the humerus. There is an avulsion fracture at the base of the greater tuberosity. Electronically Signed: Nida Baum, at 11:14 EDT Tel , Service support , 05/29/19 10:37 HIP, UNI W/ Pelvis 2-3 Views [RAD] Stat Humerus min 2 Views [RAD] Stat Laboratory Results 05/29/19 05/29/19 05/29/19 11:13 11:13 11:13 WBC 8.0 RBC 3.86 L Hgb 11.3 L Hct 33.8 L MCV 87.6 MCH 29.3 MCHC 33.4 RDW Std Deviation 42.1 RDW Coeff of Reina 13.2 Plt Count 212 MPV 9.4 Immature Gran % (Auto) 0.800 Neut % (Auto) 70.1 H Lymph % (Auto) 16.8 L [place] % (Auto) 10.6 H Eos % (Auto) 1.4 Baso % (Auto) 0.3 Absolute Neuts (auto) 5.6 Absolute Lymphs (auto) 1.34 Nucleated RBC % 0 PT Cancelled INR Cancelled APTT Cancelled Sodium Cancelled Potassium Cancelled Chloride Cancelled Carbon Dioxide Cancelled Anion Gap Cancelled BUN Cancelled Creatinine Cancelled Estim Creat Clear Calc Cancelled Est GFR (MDRD) Af Amer Cancelled Est GFR (MDRD) Non-Af Cancelled BUN/Creatinine Ratio Cancelled Glucose Cancelled Calcium Cancelled - EKG Initial EKG Interpretation: Sinus Rhythm - Sinus at 69 with first-degree AV block. No acute ischemia. - Medical Decision Making She was initially given [place] followed by morphine for pain control. She does rely on her arms for transfer from her hospital bed to her wheelchair. She is unable to do that with her proximal humerus fracture. Patient also has a left femoral neck fracture. She is known to Dr. Hernandez and I have spoken with Dr. Abhishek Winters. If patient can be cleared for surgery he can perform her left hip repair this afternoon. I will speak with hospitalist. Labs are pending at this time. Hospitalist has spoken with cardiology who will see the patient on the floor. Hospitalist will contact orthopedics to discuss timing of surgery. ED Disposition - Plan for ED Patient: Disposition: Acute Care Hospital [facility] Diagnosis: Closed left hip fracture, Left humeral fracture Referrals: Irasema Jonas MD [Primary Care Provider] -
[2019-05-29] MEDS: HYDROcodone Bitartrate/Apap 5/325 Tablet PO (10:14)
[2019-05-29] MEDS: Ondansetron ODT 4 MG Tablet PO (10:14)
--- NOTE | 2019-05-29 10:37 | RAD_ITS ---
STUDY: X-RAY - PELVIS AND LEFT HIP REASON FOR EXAM: Female, 69 years old. FALL, PAIN TO LEFT ARM AND HIP/ LEG TECHNIQUE: 3 views of the pelvis and hip. COMPARISON: None. FINDINGS: There is a non-specific bowel gas pattern. Normal visualized soft tissue structures. There is diffuse demineralization of the osseous structures. There is narrowing with cortical sclerosis and osteophyte formation of the sacroiliac joint consistent with degenerative osteoarthritic changes. Normal bilateral superior and inferior pubic rami. Normal pubic symphysis. Normal bilateral ischial tuberosities. There is displaced fracture of the left lower neck. RAD/HIP, UNI W/ Pelvis 2-3 Views IMPRESSION: There is displaced fracture of the left lower neck. Electronically Signed: Nida Baum, at 11:17 EDT Tel , Service support ,
--- NOTE | 2019-05-29 10:37 | RAD_ITS ---
STUDY: X-RAY - LEFT HUMERUS REASON FOR EXAM: Female, 69 years old. FALL, PAIN TO LEFT ARM AND HIP/ LEG TECHNIQUE: 2 view(s) of the humerus. COMPARISON: None. FINDINGS: There is a comminuted nondisplaced fracture of the proximal metaphysis of the humerus. There is an avulsion fracture at the base of the greater tuberosity. There is no demonstrated soft tissue abnormality. RAD/Humerus min 2 Views IMPRESSION: There is a comminuted nondisplaced fracture of the proximal metaphysis of the humerus. There is an avulsion fracture at the base of the greater tuberosity. Electronically Signed: Nida Baum, at 11:14 EDT Tel , Service support ,
[2019-05-29] MEDS: Morphine 4 MG/ML Syringe IV ×3 (10:49→13:19)
--- NOTE | 2019-05-29 10:58 | ED.RN ---
brothr dropped pt cell phone off to her. phone provided to pt
--- NOTE | 2019-05-29 11:03 | EKG12_ITS ---
Test Reason : FALL Blood Pressure : / mmHG Vent. Rate : 069 BPM Atrial Rate : 069 BPM P-R Int : 230 ms QRS Dur : 074 ms QT Int : 376 ms P-R-T Axes : 081 031 052 degrees QTc Int : 402 ms Sinus rhythm with 1st degree A-V block Low voltage QRS Septal infarct , age undetermined Abnormal ECG Confirmed by RAJI GARCIA, GINA ([id number]), manager editorial SOLO VAZQUEZ ([id number]) on 06/03/2019 9:44:12 AM Referred By: SHELLY Confirmed By:GINA ALEGRIA MD
--- NOTE | 2019-05-29 11:07 | ED.RN ---
DR JUAN JOSÉ VAZQUEZ CONTACTED FOR DR BRAVO
[2019-05-29 11:27] LABS: Absolute Lymphocyte Count 1.34 X10^3/uL (0.83-4.51); Absolute Neutrophil Count 5.6 X10^3/uL (2.0-7.7); Basophil# 0.02 X10^3/uL; Basophil% 0.3 % (0-1); Eosinophil# 0.11 X10^3/uL; Eosinophils% 1.4 % (0-5); Hematocrit 33.8 % (37-47); Hemoglobin 11.3 g/dL (12.0-15.0); Lymphocyte # 1.34 X10^3/ul (4.0); Lymphocyte % 16.8 % (19-41); Mean Corp Hgb Conc 33.4 g/dL (32-36); Mean Corpuscular Hgb 29.3 pg (27.0-32.0); Mean Corpuscular Volume 87.6 fL (81-99); Mean Platelet Vol. 9.4 fl (6.2-12.0); Monocyte# 0.84 X10^3/uL; Monocyte% 10.6 % (0-10); NRBC Flagged by Analyzer 0 % (0-5); Neutrophil # 5.59 X10^3/uL (2.7-7.7); Neutrophil % 70.1 % (47-70); Platelet Count 212 K/mm3 (150-450); RBC Distribution Width CV 13.2 % (11.6-14.6); RBC Distribution Width SD 42.1 fl (35.1-43.9); Red Blood Count 3.86 M/mm3 (4.2-5.4)
[2019-05-29] MEDS: 0.9% Normal Saline 1,000 ML 15 ML IV (11:37)
[2019-05-29 11:49] LABS: Prothrombin Time (Protime)PT. 13.1 SECONDS (11.7-14.9)
[2019-05-29 11:50] LABS: Hemoglobin A1c 4.8 % (4.2-6.3)
[2019-05-29 11:53] LABS: Anion Gap 5 (5-15); BUN 10 mg/dL (7-18); Calcium,Total 8.3 mg/dL (8.5-10.1); Chloride 95 mmol/L (98-107); Creatinine, Serum 0.52 mg/dL (0.55-1.02); EST Glomerular Filtration Rate 124 mL/min (>60); Est Glom Filt Rate - Afr Amer 150 mL/min (>60); Estimated Creatinine Clearance 44.47 ml/min; Glucose 101 mg/dL (74-106); Potassium 4.7 mmol/L (3.5-5.1); Sodium Level 127 mmol/L (136-145)
--- NOTE | 2019-05-29 11:54 | RAD_ITS ---
STUDY: X-RAY CHEST REASON FOR EXAM: Female, 69 years old. increase SOB s/p fall today -- known left humerus fracture TECHNIQUE: Single AP portable view of the chest. COMPARISON: None. FINDINGS: The lungs are clear and expanded. There is no demonstrated pleural abnormality. Normal size heart. Normal mediastinum and rhea. Normal visualized pulmonary arteries. There is atherosclerotic calcification of the aortic arch with tortuosity. There is demineralization of the osseous structures. There is degenerative osteoarthritis of the bilateral shoulders. Old bilateral rib fractures are noted. Old mid thoracic compression fractures also noted. There is no demonstrated abnormality of the visualized soft tissue structures of the upper abdomen. RAD/Chest 1 View (Portable) IMPRESSION: Degenerative changes, as described above. No demonstrated acute cardiopulmonary process. Electronically Signed: Nida Baum, at 12:26 EDT Tel , Service support ,
[2019-05-29] MEDS: Ondansetron 4 MG/2 ML Vial IV ×2 (12:15→21:41)
--- NOTE | 2019-05-29 12:54 | HP.PCM_ITS ---
Problem List (1) Closed left hip fracture Status: Acute (2) Left humeral fracture Status: Acute (3) Hyponatremia Status: Chronic (4) CHF (congestive heart failure) Status: Chronic (5) COPD (chronic obstructive pulmonary disease) Status: Chronic (6) Seizures Status: Chronic (7) Diabetes Status: Chronic Qualifiers: Diabetes mellitus type: type 2 (8) Essential (primary) hypertension Status: Chronic (9) Hyperlipidemia Status: Chronic (10) Peripheral arterial occlusive disease Status: Chronic History of Present Illness Date of Admission: 05/29/19 Chief Complaint: left hip pain The patient is a 69 year old F with pmhx of COPD chronic 3lpm o2 use, CHF, chronic hyponatremia, diet controlled T2DM, ongoing Dmt2, HLD, HTN, PAD with prior left AKA, who presented to the ER after a fall. She was in her normal state of health, however she was attempting to transfer herself and lost balance, falling with her left arm behind her and onto her left hip. She reported to the ER with uncontrolled pain and was found to have left humeral fracture and left femoral neck fracture. Dr Winters from ortho was contacted and plans to take her for surgical repair of the femoral neck, sling and swath only for the humeral fracture. The patient currently has 8/10 pain at both sights. She has a chronic cough. No SOB on home o2, no nausea/vomiting, no fever chills. She is interested in going to TCU after surgery. [] Past Medical History Past Medical History (Chronic Problems): Chronic Problems (Last Updated 11/05/18 @ 22:44 by Yumi Munroe) CHF (congestive heart failure) (Chronic) COPD (chronic obstructive pulmonary disease) (Chronic) Seizures (Chronic) Diabetes (Chronic) Hyponatremia (Chronic) Essential (primary) hypertension (Chronic) Hyperlipidemia (Chronic) Peripheral arterial occlusive disease (Chronic) Acute on chronic congestive heart failure (Chronic) Medical History: Medical History (Last Updated 11/05/18 @ 22:44 by Yumi Munroe) Essential (primary) hypertension (Chronic) I10 Hyperlipidemia (Chronic) E78.5 Peripheral arterial occlusive disease (Chronic) I77.9 Acute on chronic congestive heart failure (Chronic) I50.9 Atherosclerosis of [place] artery of left lower extremity I70.202 COPD (chronic obstructive pulmonary disease) J44.9 Cerebrovascular disease I67.9 Status post acute ischemic stroke no residual deficit Moderate carotid disease Bilateral carotid endarterectomy Chronic hypoxemic respiratory failure J96.11 Chronic ulcer of left foot with fat layer exposed L97.522 Hammer toe of left foot M20.42 Insomnia G47.00 Neuropathic pain M79.2 Osteoporosis M81.0 Other specified peripheral vascular diseases I73.89 Seizure disorder G40.909 Type 2 diabetes mellitus with diabetic polyneuropathy E11.42 Vertebral compression fracture M48.50XA Abdominal pain (Resolved) R10.9 Foot ulcer, left (Resolved) L97.529 Fracture of fifth toe, left, closed (Resolved) S92.502A Shortness of breath (Resolved) R06.02 Tobacco user Z72.0 Allergies levofloxacin [From Levaquin] Allergy (Verified 05/29/19 10:10) Other Red streak up her arm and itiching pregabalin [From Lyrica] Allergy (Verified 05/29/19 10:10) Other Sulfa (Sulfonamide Antibiotics) Allergy (Verified 05/29/19 10:10) Anaphylaxis duloxetine [From Cymbalta] Adverse Reaction (Verified 05/29/19 10:10) Vomiting sertraline HCl [From Zoloft] Adverse Reaction (Verified 05/29/19 10:10) MAKES ME CRAZY makes me crazy Home Medications: Ambulatory Orders Medication Instructions Recorded Albuterol Aerosols [Ventolin 2.5 mg INHALATION Q4H PRN PRN 04/05/17 Aerosols] Albuterol IH (ProAir) [Proair Hfa] 2 puff INHALATION Q6H PRN PRN 04/05/17 Gabapentin [Neurontin] 600 mg PO TIDCM 04/05/17 Ipratropium/Albuterol Sulfate 3 ml INHALATION Q6HWA.RT 04/05/17 [Duoneb] Sodium Chloride 1 gm PO DAILY 04/05/17 Clopidogrel Bisulfate [Plavix] 75 mg PO DAILY 07/13/17 Budesonide Aerosol [Pulmicort 0.5 mg INHALATION BID 08/21/17 Respules] Acetaminophen [Tylenol] 1,000 mg PO Q8 08/31/17 Multivitamins,Ther W-Minerals 1 tab PO DAILYCM 08/31/17 [Multivitamin With Minerals ([facility])] Pantoprazole Sodium 40 mg PO DAILY #30 tablet. 09/17/17 proMETHazine tablet [Phenergan 25 mg PO Q6H PRN PRN tab 09/17/17 tablet] atorvastatin 20 mg tablet 20 mg PO QDAY #90 tab 10/18/17 metoprolol tartrate 50 mg tablet 50 mg PO TID tab 10/18/17 Amlodipine [Norvasc] 2.5 mg PO DAILY 05/29/19 Melatonin 10 mg PO QHS 05/29/19 Mirtazapine [Remeron] 15 mg PO QHS 05/29/19 Surgical History: Surgical History (Last Updated 11/05/18 @ 22:43 by Yumi Munroe) History of above knee amputation Onset Date: 08/28/17 Z89.619 left History of appendectomy Z98.890, Z90.49 History of bilateral carotid endarterectomy Z98.890 History of hysterectomy Z98.890, Z90.710 abdominal aorta endovascular stent graft bilateral femoral endarterectomy bilateral iliac stenting Surgical History: appendectomy, hysterectomy, - - Bilateral carotid endarterectomy,pad surgery with stents. 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 Lives: With Family Smoking Status: Current every day smoker Tobacco Use: Cigarettes Alcohol: None Drugs: None - *Family History Paternal Family History: Family History (Last Reviewed 05/29/19 @ 13:01 by GENEVA Kirby) Mother CVA (cerebral vascular accident) History Items: Heart Disease Maternal Family History: Family History (Last Reviewed 05/29/19 @ 13:01 by GENEVA Kirby) Mother CVA (cerebral vascular accident) History Items: No pertinent history Review of Systems Constitutional: Denies: Chills, Fever, Weight Change HEENT: Denies: Head Aches, Sinus Congestion, Sinus Drainage Cardiovascular: Denies: Chest Pain, Palpitations Respiratory: Reports: Cough - chronic. Denies: Shortness of Breath, Shortness of breath at rest, Sputum production, Wheezing Gastrointestinal: Denies: Abdominal Pain, Diarrhea, Nausea, Vomiting Genitourinary: Denies: Dysuria, Frequency, Urgency Musculoskeletal: Denies: Joint Pain, Joint Tenderness Skin: Denies: Rash, Wounds Neurological: Denies: Numbness, Tingling, Focal weakness Psychiatric: Denies: Anxiety, Depression, Homicidal Ideations, Suicidal Ideations Hematologic/ Lymphatic: Denies: Easy Bruising, Easy Bleeding VTE Information - Inpt Only VTE Present on Admission: No VTE Mechan Device Prophylaxis: None VTE Pharm Prophylaxis ordered?: Yes Patient Problems: Active and Suspected Problems (Last Updated 11/05/18 @ 22:44 by Yumi Munroe) Closed left hip fracture (Acute) Left humeral fracture (Acute) - Physical Exam Vitals/I&O's: Vital Signs Temp Pulse Resp BP Pulse Ox 98.0 F 68 15 156/95 H 100 05/29/19 11:58 05/29/19 11:58 05/29/19 11:58 05/29/19 11:58 05/29/19 11:58 Oxygen Flow Rate (L/min) 3 Oxygen Delivery Method Nasal Cannula Weight: 113 lb 12.136 oz Body Mass Index (BMI) 24.6 Finger Stick Blood Glucose 89 General: Alert, Oriented x3, Cooperative HEENT: Atraumatic, PERRLA, EOMI, Normocephalic Neck: Supple, No JVD, Negative Carotid Bruits Lungs: Clear to auscultation, Normal air movement Cardiovascular: Regular rate, No murmurs Abdomen: Bowel Sounds Present, Soft, Non Tender Extremities: No edema, Capillary Refill Less than 3 Seconds Skin: No rashes, No breakdown Musculoskeletal: No Tenderness to Palpation of Joints or Extremities Neurological: Cranial nerves II-XII grossly intact Psych/Mental Status: Normal Affect, Appropriate, Alert and oriented to time, place, person, mood and affect Laboratory Results 05/29/19 11:13: WBC 8.0, RBC 3.86 L, Hgb 11.3 L, Hct 33.8 L, MCV 87.6, MCH 29.3, MCHC 33.4, RDW Std Deviation 42.1, RDW Coeff of Reina 13.2, Plt Count 212, MPV 9.4, Immature Gran % (Auto) 0.800, Neut % (Auto) 70.1 H, Lymph % (Auto) 16.8 L, [place] % (Auto) 10.6 H, Eos % (Auto) 1.4, Baso % (Auto) 0.3, Absolute Neuts (auto) 5.6, Absolute Lymphs (auto) 1.34, Nucleated RBC % 0 05/29/19 11:13: PT Cancelled, INR Cancelled, APTT Cancelled 05/29/19 11:13: Sodium Cancelled, Potassium Cancelled, Chloride Cancelled, Carbon Dioxide Cancelled, Anion Gap Cancelled, BUN Cancelled, Creatinine Cancelled, Estim Creat Clear Calc Cancelled, Est GFR (MDRD) Af Amer Cancelled, Est GFR (MDRD) Non-Af Cancelled, BUN/Creatinine Ratio Cancelled, Glucose Cancelled, Calcium Cancelled 05/29/19 11:13: Hemoglobin A1c 4.8 05/29/19 11:30: PT 13.1, INR 1.0, APTT 32.0 05/29/19 11:30: Sodium 127 L, Potassium 4.7, Chloride 95 L, Carbon Dioxide 27.0, Anion Gap 5, BUN 10, Creatinine 0.52 L, Estim Creat Clear Calc 44.47, Est GFR (MDRD) Af Amer 150, Est GFR (MDRD) Non-Af 124, BUN/Creatinine Ratio 19.0, Glucose 101, Calcium 8.3 L Current Medications Albuterol Sulfate (Ventolin Aerosols) 2.5 mg INHALATION Q2H PRN PRN PRN Reason: DYSPNEA Albuterol/Ipratropium (Duoneb) 3 ml INHALATION Q6HWA.RT [facility] Amlodipine Besylate (Norvasc) 2.5 mg PO DAILY [facility] Atorvastatin Calcium (Lipitor) 20 mg PO QDAY [facility] Budesonide (Pulmicort Aerosol) 0.5 mg INHALATION BID [facility] Dextrose (D50w Syringe) 0 gm IV X1 PRN; Protocol PRN Reason: Hypoglycemia Enoxaparin Sodium (Lovenox) 40 mg SC DAILY [facility] Gabapentin (Neurontin) 600 mg PO TIDCM [facility] Glucagon () 1 mg IM .X1 PRN PRN Reason: Hypoglycemia Sodium Chloride () 1,000 mls @ 15 mls/hr IV .Q48H [facility] Last Admin: 05/29/19 11:37 Dose: 15 mls/hr Documented by: Sodium Chloride () 1,000 mls @ 100 mls/hr IV .Q10H [facility] Insulin Human Lispro (Humalog Kwikpen ([facility])) 0 unit SC ACHS [facility]; Protocol Metoprolol Tartrate (Lopressor (Beta Yany)) 50 mg PO TID [facility] Morphine Sulfate () 4 mg IV Q3H PRN PRN PRN Reason: Pain Score 6-10/10 Non-Formulary Medication (Melatonin) 10 mg PO QHS [facility] Non-Formulary Medication (Mirtazapine [Remeron]) 15 mg PO QHS [facility] Non-Formulary Medication (Sodium Chloride) 1 gm PO DAILY [facility] Ondansetron HCl (Zofran) 4 mg IV Q8H PRN PRN PRN Reason: NAUSEA/VOMITING Oxycodone HCl (Oxyir) 10 mg PO Q4H PRN PRN PRN Reason: Pain Score 4-5/10 Pantoprazole Sodium (Protonix) 40 mg PO DAILY [facility] Promethazine HCl (Phenergan Tablet) 25 mg PO Q6H PRN PRN PRN Reason: NAUSEA/VOMITING Assessment/Plan All Active Problems (Last Updated 11/05/18 @ 22:44 by Yumi Munroe) Closed left hip fracture (Acute) Left humeral fracture (Acute) Abdominal pain (Resolved) Foot ulcer, left (Resolved) Fracture of fifth toe, left, closed (Resolved) Hyponatremia (Resolved) Shortness of breath (Resolved) Viral syndrome (Resolved) Cellulitis of foot (Ruled-out) 1. Acute left femoral neck fx - consult to cardiology - cleared for surgery. Likely to OR today with Dr. Winters. Lovenox for dvt ppx. CXR with no acute chagnes. EKG with 1 degree av block. 2. PAD with prior L AKA - hold plavix. 3. COPD with chronic hypoxic respiratory failure - no exacerbation - continue 3lpm o2. Prn aerosols. 4. Hx diastolic CHF - stress echo 04/28 with EF 60%. No exacerbation. Not on home lasix. 5. Hx Seizure - continue neurontin 6. Chronic hyponatremia - continue sodium tabs. 7. DMt2 - diet controlled. accuchecks + SSI. 8. HLD - lipitor. 9. HTN - elevated 2/2 pain, continue home meds. 10. GERD - PPI DVT ppx: lovenox DC planning: likely needs SNF - pt interested in TCU, possibly RU. This patient was seen by Camron Mackey PA-C under the supervision of Dr. Carlson.
--- NOTE | 2019-05-29 13:06 | NURSING ---
per pt, pt will keep in contact with pt's brother and update him as needed
--- NOTE | 2019-05-29 13:09 | CON.PCM_ITS ---
Reason for Consult Date of Consultation: 05/29/19 Reason for Consultation: Pre op cardiovascular evaluation History of Present Illness: MEME JOHNSON, is a 69 F who presented to the emergency room today after she sustained a fall injuring her left humerus and left hip. She apparently had been doing quite well with no major cardiac complaints. She had been seen by us in the office within the last 3 months and had undergone surgical clearance for a cholecystectomy which she underwent in March 2019 at [facility] successfully. She has had no neck arm or jaw discomfort to suggest angina no dizziness or diaphoresis no near syncope or syncope. As you know she does have significant peripheral vascular disease. She has a history of significant peripheral vascular disease status post bilateral femoral endarterectomies with bilateral common external iliac stents and left common femoral endarterectomy with external composite graft. She also has a history of hypertension. She wears chronic 3 liter of oxygen for COPD. Pt. denies chest, arm, jaw, or neck discomfort. Her exercise tolerance is stable. She states her breathing is at baseline. Pt. denies symptoms of palpitations, near syncope, or syncopal episodes. Pt. denies edema or claudication issues. She denies orthopnea or PND. She states feeling less SOB at an incline at time. Pt. denies fever, chills, blood in urine, blood in stool, myalgia, or unexplainable fatigue. She state feeling dizziness with certain position changes. Her EKG today is unremarkable. Past Medical History Allergies/Adverse Reactions: Allergies levofloxacin [From Levaquin] Allergy (Verified 05/29/19 10:10) Other Red streak up her arm and itiching pregabalin [From Lyrica] Allergy (Verified 05/29/19 10:10) Other Sulfa (Sulfonamide Antibiotics) Allergy (Verified 05/29/19 10:10) Anaphylaxis duloxetine [From Cymbalta] Adverse Reaction (Verified 05/29/19 10:10) Vomiting sertraline HCl [From Zoloft] Adverse Reaction (Verified 05/29/19 10:10) MAKES ME CRAZY makes me crazy Home Medications: Ambulatory Orders Medication Instructions Recorded Albuterol Aerosols [Ventolin 2.5 mg INHALATION Q4H PRN PRN 04/05/17 Aerosols] Albuterol IH (ProAir) [Proair Hfa] 2 puff INHALATION Q6H PRN PRN 04/05/17 Gabapentin [Neurontin] 600 mg PO TIDCM 04/05/17 Ipratropium/Albuterol Sulfate 3 ml INHALATION Q6HWA.RT 04/05/17 [Duoneb] Sodium Chloride 1 gm PO DAILY 04/05/17 Clopidogrel Bisulfate [Plavix] 75 mg PO DAILY 07/13/17 Budesonide Aerosol [Pulmicort 0.5 mg INHALATION BID 08/21/17 Respules] Acetaminophen [Tylenol] 1,000 mg PO Q8 08/31/17 Multivitamins,Ther W-Minerals 1 tab PO DAILYCM 08/31/17 [Multivitamin With Minerals ([facility])] Pantoprazole Sodium 40 mg PO DAILY #30 tablet. 09/17/17 proMETHazine tablet [Phenergan 25 mg PO Q6H PRN PRN tab 09/17/17 tablet] atorvastatin 20 mg tablet 20 mg PO QDAY #90 tab 10/18/17 metoprolol tartrate 50 mg tablet 50 mg PO TID tab 10/18/17 Amlodipine [Norvasc] 2.5 mg PO DAILY 05/29/19 Melatonin 10 mg PO QHS 05/29/19 Mirtazapine [Remeron] 15 mg PO QHS 05/29/19 Past Medical History (Chronic Problems): Chronic Problems (Last Updated 11/05/18 @ 22:44 by Yumi Munroe) CHF (congestive heart failure) (Chronic) COPD (chronic obstructive pulmonary disease) (Chronic) Seizures (Chronic) Diabetes (Chronic) Hyponatremia (Chronic) Essential (primary) hypertension (Chronic) Hyperlipidemia (Chronic) Peripheral arterial occlusive disease (Chronic) Acute on chronic congestive heart failure (Chronic) Surgical History: appendectomy, hysterectomy, - - Bilateral carotid endarterectomy,pad surgery with stents. 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 - *Family History Paternal Family History: Family History (Last Reviewed 05/29/19 @ 13:01 by GENEVA Kirby) Mother CVA (cerebral vascular accident) History Items: Heart Disease Maternal Family History: Family History (Last Reviewed 05/29/19 @ 13:01 by GENEVA Kirby) Mother CVA (cerebral vascular accident) History Items: No pertinent history Lives: With Family Smoking Status: Current every day smoker Tobacco Use: Cigarettes Alcohol: None Drugs: None Review of Systems - Review of Systems General: Denies: Fever, Night Sweats, Fatigue HEENT: Denies: Vision Change Cardiovascular: Denies: Chest Discomfort, Shortness of Breath, Orthopnea, PND, Peripheral Edema, Palpitations, Lightheadedness, Dizziness, Near Syncope, Syncope Respiratory: Denies: Cough, Sputum Production, Hemoptysis Gastrointestinal: Denies: Hematemesis, Hematochezia, Melena Genitourinary: Denies: Dysuria, Hematuria Muscoloskeletal: Denies: Myalgias Skin: Denies: Rash Neurological: Denies: Dizziness Psychiatric: Denies: Anxiety Endocrine: Denies: Heat Intolerance Subjectve: Pleasant lady in no distress Objective: Vital Signs Temp Pulse Resp BP Pulse Ox 98.0 F 73 14 121/69 H 98 05/29/19 13:09 05/29/19 13:09 05/29/19 13:09 05/29/19 13:09 05/29/19 13:09 Oxygen Flow Rate (L/min) 3 Oxygen Delivery Method Room Air Weight: 113 lb 12.136 oz Body Mass Index (BMI) 24.6 Finger Stick Blood Glucose 89 General: Awake, Alert, Oriented x 3 HEENT: PERRL, EOMI, Sclera Non Icteric Neck: Supple, Good ROM, No Lymph Node Enlargement Lungs: Clear to auscultation Cardiovascular: Regular Rhythm, Normal S1, Normal S2, No Murmurs, No Rubs, No Gallops Vascular: No Carotid Bruits, Normal Femoral Pulses, Normal Radial Pulses, Normal Dorsalis Pedal Pulse, Normal Posterior Tibial Pulses Abdomen: Bowel Sounds Present, Soft, Non Tender, No HSM, No Organomegaly Extremities: No Cyanosis, No Clubbing, No edema, - - Left leg amputee, left humeral fracture. Musculoskeletal: No Erythema Skin: No Rashes Lymphatic: No Lymph Node Enlargement Neurological: No Focal Motor or Sensory Deficit Psych/Mental Status: Appropriate 05/29/19 11:13: WBC 8.0, RBC 3.86 L, Hgb 11.3 L, Hct 33.8 L, MCV 87.6, MCH 29.3, MCHC 33.4, Plt Count 212, MPV 9.4, Immature Gran % (Auto) 0.800, Neut % (Auto) 70.1 H, Lymph % (Auto) 16.8 L, [place] % (Auto) 10.6 H, Eos % (Auto) 1.4, Baso % (Auto) 0.3, Absolute Neuts (auto) 5.6, Nucleated RBC % 0 05/29/19 11:13: PT Cancelled, INR Cancelled, APTT Cancelled 05/29/19 11:13: Sodium Cancelled, Potassium Cancelled, Chloride Cancelled, Carbon Dioxide Cancelled, Anion Gap Cancelled, BUN Cancelled, Creatinine Cancelled, Est GFR (MDRD) Af Amer Cancelled, Est GFR (MDRD) Non-Af Cancelled, BUN/Creatinine Ratio Cancelled, Glucose Cancelled, Calcium Cancelled 05/29/19 11:13: Hemoglobin A1c 4.8 05/29/19 11:30: PT 13.1, INR 1.0, APTT 32.0 05/29/19 11:30: Sodium 127 L, Potassium 4.7, Chloride 95 L, Carbon Dioxide 27.0, Anion Gap 5, BUN 10, Creatinine 0.52 L, Est GFR (MDRD) Af Amer 150, Est GFR (MDRD) Non-Af 124, BUN/Creatinine Ratio 19.0, Glucose 101, Calcium 8.3 L Rhythm: EKG: Normal sinus rhythm with a rate of 89 bpm and no acute changes ECHO: Previous echocardiogram had demonstrated preserved ejection fraction of 60% and a dobutamine echo in April 2017 demonstrating no ischemia Assessment/Plan 1. Preoperative cardiac assessment * Patient is here with a hip and arm fracture and has been evaluated for preoperative cardiac assessment. Based on her clinical status she appears to be at low to moderate risk for perioperative event. At this time I would recommend that we continue to monitor her on the telemetry unit in the progressive care unit. I do not think that any testing is warranted or be recommended at this particular visit. * She should continue her current medications up to and including the day of surgery. * Postoperatively she can be monitored here in the progressive care unit. 1 set of serial cardiac enzymes should be obtained. * I would recommend holding the clopidogrel at this time * Continue the beta-lorie * I have communicated the above to the patient, the nurse, and the hospitalist in charge. * 2. Hypertension * Her blood pressure appears to be under good control at this time and I would not recommend we make any changes * 3. Peripheral vascular disease * The above appears to be stable. We will temporarily hold her clopidogrel. This can be resumed as an outpatient. * * Thank you for allowing me to participate in the care of your patient. Please don't hesitate to call if any issues arise.
[2019-05-29] MEDS: 0.9% Normal Saline 1,000 ML 100 ML IV ×2 (13:22→22:05)
[2019-05-29] MEDS: Metoprolol Tartrate 50 MG Tablet PO (13:52)
[2019-05-29] MEDS: Gabapentin 600 MG Tablet PO ×2 (13:52→22:00)
[2019-05-29 14:10] LABS: Bedside Glucose 88 mg/dL (70-110)
--- NOTE | 2019-05-29 15:10 | CON.PCM_ITS ---
Reason for Consult Date of Consultation: 05/29/19 History of Present Illness: The patient is a 69 year old F [] Past Medical History Past Medical History (Chronic Problems): Chronic Problems (Last Updated 11/05/18 @ 22:44 by Yumi Munroe) CHF (congestive heart failure) (Chronic) COPD (chronic obstructive pulmonary disease) (Chronic) Seizures (Chronic) Diabetes (Chronic) Hyponatremia (Chronic) Essential (primary) hypertension (Chronic) Hyperlipidemia (Chronic) Peripheral arterial occlusive disease (Chronic) Acute on chronic congestive heart failure (Chronic) Medical History: Medical History (Last Updated 11/05/18 @ 22:44 by Yumi Munroe) Essential (primary) hypertension (Chronic) I10 Hyperlipidemia (Chronic) E78.5 Peripheral arterial occlusive disease (Chronic) I77.9 Acute on chronic congestive heart failure (Chronic) I50.9 Atherosclerosis of [place] artery of left lower extremity I70.202 COPD (chronic obstructive pulmonary disease) J44.9 Cerebrovascular disease I67.9 Status post acute ischemic stroke no residual deficit Moderate carotid disease Bilateral carotid endarterectomy Chronic hypoxemic respiratory failure J96.11 Chronic ulcer of left foot with fat layer exposed L97.522 Hammer toe of left foot M20.42 Insomnia G47.00 Neuropathic pain M79.2 Osteoporosis M81.0 Other specified peripheral vascular diseases I73.89 Seizure disorder G40.909 Type 2 diabetes mellitus with diabetic polyneuropathy E11.42 Vertebral compression fracture M48.50XA Abdominal pain (Resolved) R10.9 Foot ulcer, left (Resolved) L97.529 Fracture of fifth toe, left, closed (Resolved) S92.502A Shortness of breath (Resolved) R06.02 Tobacco user Z72.0 Allergies levofloxacin [From Levaquin] Allergy (Verified 05/29/19 10:10) Other Red streak up her arm and itiching pregabalin [From Lyrica] Allergy (Verified 05/29/19 10:10) Other Sulfa (Sulfonamide Antibiotics) Allergy (Verified 05/29/19 10:10) Anaphylaxis duloxetine [From Cymbalta] Adverse Reaction (Verified 05/29/19 10:10) Vomiting sertraline HCl [From Zoloft] Adverse Reaction (Verified 05/29/19 10:10) MAKES ME CRAZY makes me crazy Home Medications: Ambulatory Orders Medication Instructions Recorded Albuterol Aerosols [Ventolin 2.5 mg INHALATION Q4H PRN PRN 04/05/17 Aerosols] Albuterol IH (ProAir) [Proair Hfa] 2 puff INHALATION Q6H PRN PRN 04/05/17 Gabapentin [Neurontin] 600 mg PO TIDCM 04/05/17 Ipratropium/Albuterol Sulfate 3 ml INHALATION Q6HWA.RT 04/05/17 [Duoneb] Sodium Chloride 1 gm PO DAILY 04/05/17 Clopidogrel Bisulfate [Plavix] 75 mg PO DAILY 07/13/17 Budesonide Aerosol [Pulmicort 0.5 mg INHALATION BID 08/21/17 Respules] Acetaminophen [Tylenol] 1,000 mg PO Q8 08/31/17 Multivitamins,Ther W-Minerals 1 tab PO DAILYCM 08/31/17 [Multivitamin With Minerals ([facility])] Pantoprazole Sodium 40 mg PO DAILY #30 tablet. 09/17/17 proMETHazine tablet [Phenergan 25 mg PO Q6H PRN PRN tab 09/17/17 tablet] atorvastatin 20 mg tablet 20 mg PO QDAY #90 tab 10/18/17 metoprolol tartrate 50 mg tablet 50 mg PO TID tab 10/18/17 Amlodipine [Norvasc] 2.5 mg PO DAILY 05/29/19 Melatonin 10 mg PO QHS 05/29/19 Mirtazapine [Remeron] 15 mg PO QHS 05/29/19 Surgical History: Surgical History (Last Updated 11/05/18 @ 22:43 by Yumi Munroe) History of above knee amputation Onset Date: 08/28/17 Z89.619 left History of appendectomy Z98.890, Z90.49 History of bilateral carotid endarterectomy Z98.890 History of hysterectomy Z98.890, Z90.710 abdominal aorta endovascular stent graft bilateral femoral endarterectomy bilateral iliac stenting Surgical History: appendectomy, hysterectomy, - - Bilateral carotid endarterectomy,pad surgery with stents. 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 Lives: With Family Smoking Status: Current every day smoker Tobacco Use: Cigarettes Alcohol: None Drugs: None - *Family History Paternal Family History: Family History (Last Reviewed 05/29/19 @ 13:01 by GENEVA Kirby) Mother CVA (cerebral vascular accident) History Items: Heart Disease Maternal Family History: Family History (Last Reviewed 05/29/19 @ 13:01 by GENEVA Kirby) Mother CVA (cerebral vascular accident) History Items: No pertinent history Patient Problems: Active and Suspected Problems (Last Updated 11/05/18 @ 22:44 by Yumi Munroe) Closed left hip fracture (Acute) Left humeral fracture (Acute) - Physical Exam Vitals/I&O's: Vital Signs Temp Pulse Resp BP Pulse Ox 98.0 F 86 14 121/67 H 98 05/29/19 13:09 05/29/19 13:54 05/29/19 13:54 05/29/19 13:54 05/29/19 13:54 Oxygen Flow Rate (L/min) 3 Oxygen Delivery Method Nasal Cannula Weight: 51.6 kg Body Mass Index (BMI) 24.6 Finger Stick Blood Glucose 89 Intake and Output for Last 24 Hours 05/27/19 05/28/19 05/29/19 23:59 23:59 23:59 Intake Total 1000 / 1000 Balance 1000 / 1000 Laboratory Results 05/29/19 11:13: WBC 8.0, RBC 3.86 L, Hgb 11.3 L, Hct 33.8 L, MCV 87.6, MCH 29.3, MCHC 33.4, RDW Std Deviation 42.1, RDW Coeff of Reina 13.2, Plt Count 212, MPV 9.4, Immature Gran % (Auto) 0.800, Neut % (Auto) 70.1 H, Lymph % (Auto) 16.8 L, [place] % (Auto) 10.6 H, Eos % (Auto) 1.4, Baso % (Auto) 0.3, Absolute Neuts (auto) 5.6, Absolute Lymphs (auto) 1.34, Nucleated RBC % 0 05/29/19 11:13: PT Cancelled, INR Cancelled, APTT Cancelled 05/29/19 11:13: Sodium Cancelled, Potassium Cancelled, Chloride Cancelled, Carbon Dioxide Cancelled, Anion Gap Cancelled, BUN Cancelled, Creatinine Cancelled, Estim Creat Clear Calc Cancelled, Est GFR (MDRD) Af Amer Cancelled, Est GFR (MDRD) Non-Af Cancelled, BUN/Creatinine Ratio Cancelled, Glucose Cancelled, Calcium Cancelled 05/29/19 11:13: Hemoglobin A1c 4.8 05/29/19 11:30: PT 13.1, INR 1.0, APTT 32.0 05/29/19 11:30: Sodium 127 L, Potassium 4.7, Chloride 95 L, Carbon Dioxide 27.0, Anion Gap 5, BUN 10, Creatinine 0.52 L, Estim Creat Clear Calc 44.47, Est GFR (MDRD) Af Amer 150, Est GFR (MDRD) Non-Af 124, BUN/Creatinine Ratio 19.0, Glucose 101, Calcium 8.3 L 05/29/19 14:02: POC Glucose 88 Current Medications Albuterol Sulfate (Ventolin Aerosols) 2.5 mg INHALATION Q2H PRN PRN PRN Reason: DYSPNEA Albuterol/Ipratropium (Duoneb) 3 ml INHALATION Q6HWA.RT [facility] Amlodipine Besylate (Norvasc) 2.5 mg PO DAILY [facility] Atorvastatin Calcium (Lipitor) 20 mg PO QHS [facility] Budesonide (Pulmicort Aerosol) 0.5 mg INHALATION BID.RT [facility] Dextrose (D50w Syringe) 0 gm IV X1 PRN; Protocol PRN Reason: Hypoglycemia Enoxaparin Sodium (Lovenox) 40 mg SC DAILY [facility] Gabapentin (Neurontin) 600 mg PO TIDCM [facility] Last Admin: 05/29/19 13:52 Dose: 600 mg Documented by: Glucagon () 1 mg IM .X1 PRN PRN Reason: Hypoglycemia Sodium Chloride () 1,000 mls @ 15 mls/hr IV .Q48H [facility] Last Infusion: 05/29/19 13:48 Dose: Infused Documented by: Sodium Chloride () 1,000 mls @ 100 mls/hr IV .Q10H [facility] Last Admin: 05/29/19 13:22 Dose: 100 mls/hr Documented by: Cefazolin Sodium 2 gm/ Sodium (Chloride) 110 mls @ 150 mls/hr IV PREOP ONE Stop: 05/29/19 15:36 Cefazolin Sodium () 1 gm in 50 mls @ 150 mls/hr IV Q6 [facility] Stop: 05/30/19 06:19 Insulin Human Lispro (Humalog Kwikpen (Bkc)) 0 unit SC ACHS [facility]; Protocol Melatonin (Melatonin) 10 mg PO QHS [facility] Metoprolol Tartrate (Lopressor (Beta Yany)) 50 mg PO TID [facility] Last Admin: 05/29/19 13:52 Dose: 50 mg Documented by: Mirtazapine (Remeron) 15 mg PO QHS [facility] Morphine Sulfate () 4 mg IV Q3H PRN PRN PRN Reason: Pain Score 6-10/10 Last Admin: 05/29/19 13:19 Dose: 4 mg Documented by: Ondansetron HCl (Zofran) 4 mg IV Q8H PRN PRN PRN Reason: NAUSEA/VOMITING Oxycodone HCl (Oxyir) 10 mg PO Q4H PRN PRN PRN Reason: Pain Score 4-5/10 Pantoprazole Sodium (Protonix) 40 mg PO DAILY [facility] Promethazine HCl (Phenergan Tablet) 25 mg PO Q6H PRN PRN PRN Reason: NAUSEA/VOMITING Sodium Chloride (Sodium Chloride) [facility] Sodium Chloride () 10 - 40 ml IV UD PRN PRN Reason: SALINE FLUSH Assessment/Plan All Active Problems (Last Updated 11/05/18 @ 22:44 by Yumi Munroe) Closed left hip fracture (Acute) Left humeral fracture (Acute) Abdominal pain (Resolved) Foot ulcer, left (Resolved) Fracture of fifth toe, left, closed (Resolved) Hyponatremia (Resolved) Shortness of breath (Resolved) Viral syndrome (Resolved) Cellulitis of foot (Ruled-out)
[2019-05-29] MEDS: Cefazolin 2 GM in 0.9% Normal Saline 100 ML IV (15:22)
--- NOTE | 2019-05-29 16:43 | CON.PCM_ITS ---
Reason for Consult Date of Consultation: 05/29/19 History of Present Illness: The patient is a 69 year old female with standing and transferring earlier today. She fell. She sustained a left shoulder fracture and left hip fracture. She denies head injury or loss of consciousness. She has had previous above- knee amputation by Dr. Hernandez. She normally uses a wheelchair for ambulation. She does not have a prosthesis for her left lower extremity. She was brought to the hospital, admitted to the medical service, orthopedics appropriately consulted. [] Past Medical History Past Medical History (Chronic Problems): Chronic Problems (Last Updated 11/05/18 @ 22:44 by Yumi Munroe) CHF (congestive heart failure) (Chronic) COPD (chronic obstructive pulmonary disease) (Chronic) Seizures (Chronic) Diabetes (Chronic) Hyponatremia (Chronic) Essential (primary) hypertension (Chronic) Hyperlipidemia (Chronic) Peripheral arterial occlusive disease (Chronic) Acute on chronic congestive heart failure (Chronic) Medical History: Medical History (Last Updated 11/05/18 @ 22:44 by Yumi Munroe) Essential (primary) hypertension (Chronic) I10 Hyperlipidemia (Chronic) E78.5 Peripheral arterial occlusive disease (Chronic) I77.9 Acute on chronic congestive heart failure (Chronic) I50.9 Atherosclerosis of [place] artery of left lower extremity I70.202 COPD (chronic obstructive pulmonary disease) J44.9 Cerebrovascular disease I67.9 Status post acute ischemic stroke no residual deficit Moderate carotid disease Bilateral carotid endarterectomy Chronic hypoxemic respiratory failure J96.11 Chronic ulcer of left foot with fat layer exposed L97.522 Hammer toe of left foot M20.42 Insomnia G47.00 Neuropathic pain M79.2 Osteoporosis M81.0 Other specified peripheral vascular diseases I73.89 Seizure disorder G40.909 Type 2 diabetes mellitus with diabetic polyneuropathy E11.42 Vertebral compression fracture M48.50XA Abdominal pain (Resolved) R10.9 Foot ulcer, left (Resolved) L97.529 Fracture of fifth toe, left, closed (Resolved) S92.502A Shortness of breath (Resolved) R06.02 Tobacco user Z72.0 Allergies levofloxacin [From Levaquin] Allergy (Verified 05/29/19 10:10) Other Red streak up her arm and itiching pregabalin [From Lyrica] Allergy (Verified 05/29/19 10:10) Other Sulfa (Sulfonamide Antibiotics) Allergy (Verified 05/29/19 10:10) Anaphylaxis duloxetine [From Cymbalta] Adverse Reaction (Verified 05/29/19 10:10) Vomiting sertraline HCl [From Zoloft] Adverse Reaction (Verified 05/29/19 10:10) MAKES ME CRAZY makes me crazy Home Medications: Ambulatory Orders Medication Instructions Recorded Albuterol Aerosols [Ventolin 2.5 mg INHALATION Q4H PRN PRN 04/05/17 Aerosols] Albuterol IH (ProAir) [Proair Hfa] 2 puff INHALATION Q6H PRN PRN 04/05/17 Gabapentin [Neurontin] 600 mg PO TIDCM 04/05/17 Ipratropium/Albuterol Sulfate 3 ml INHALATION Q6HWA.RT 04/05/17 [Duoneb] Sodium Chloride 1 gm PO DAILY 04/05/17 Clopidogrel Bisulfate [Plavix] 75 mg PO DAILY 07/13/17 Budesonide Aerosol [Pulmicort 0.5 mg INHALATION BID 08/21/17 Respules] Acetaminophen [Tylenol] 1,000 mg PO Q8 08/31/17 Multivitamins,Ther W-Minerals 1 tab PO DAILYCM 08/31/17 [Multivitamin With Minerals ([facility])] Pantoprazole Sodium 40 mg PO DAILY #30 tablet. 09/17/17 proMETHazine tablet [Phenergan 25 mg PO Q6H PRN PRN tab 09/17/17 tablet] atorvastatin 20 mg tablet 20 mg PO QDAY #90 tab 10/18/17 metoprolol tartrate 50 mg tablet 50 mg PO TID tab 10/18/17 Amlodipine [Norvasc] 2.5 mg PO DAILY 05/29/19 Melatonin 10 mg PO QHS 05/29/19 Mirtazapine [Remeron] 15 mg PO QHS 05/29/19 Surgical History: Surgical History (Last Updated 11/05/18 @ 22:43 by Yumi Munroe) History of above knee amputation Onset Date: 08/28/17 Z89.619 left History of appendectomy Z98.890, Z90.49 History of bilateral carotid endarterectomy Z98.890 History of hysterectomy Z98.890, Z90.710 abdominal aorta endovascular stent graft bilateral femoral endarterectomy bilateral iliac stenting Surgical History: appendectomy, hysterectomy, - - Bilateral carotid endarterectomy,pad surgery with stents. 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 Lives: With Family Smoking Status: Current every day smoker Tobacco Use: Cigarettes Alcohol: None Drugs: None - *Family History Paternal Family History: Family History (Last Reviewed 05/29/19 @ 13:01 by GENEVA Kirby) Mother CVA (cerebral vascular accident) History Items: Heart Disease Maternal Family History: Family History (Last Reviewed 05/29/19 @ 13:01 by GENEVA Kirby) Mother CVA (cerebral vascular accident) History Items: No pertinent history Review of Systems Constitutional: Denies: Chills, Fever, Weight Change HEENT: Denies: Head Aches, Sinus Congestion, Sinus Drainage Cardiovascular: Denies: Chest Pain, Palpitations Gastrointestinal: Denies: Abdominal Pain, Nausea, Vomiting Genitourinary: Denies: Dysuria Musculoskeletal: Reports: Arm Pain, Leg Pain Skin: Denies: Rash, Wounds Neurological: Denies: Numbness, Tingling, Focal weakness Psychiatric: Denies: Anxiety, Depression, Homicidal Ideations, Suicidal Ideations Hematologic/ Lymphatic: Denies: Easy Bruising, Easy Bleeding Patient Problems: Active and Suspected Problems (Last Updated 11/05/18 @ 22:44 by Yumi Munroe) Closed left hip fracture (Acute) Left humeral fracture (Acute) Objective: She has a well-healed amputation site at the left lower thigh. She has left hip pain on palpation. No obvious deformity. She had no pain throughout the right lower extremity. She is able to gentle plantarflex dorsiflex right leg. No calf pain on the right. Skin is intact about the left hip. X-rays AP pelvis AP and lateral of left hip shows a displaced femoral neck fracture on the left. Severe osteopenia of the bone. Transfemoral amputation noted Laboratory work and vital signs reviewed Case discussed with Dr. Leigh, case discussed with ER physician. Patient evaluated by anesthesia staff - Physical Exam Vitals/I&O's: Vital Signs Temp Pulse Resp BP Pulse Ox 98.0 F 86 14 121/67 H 98 05/29/19 13:09 05/29/19 13:54 05/29/19 13:54 05/29/19 13:54 05/29/19 13:54 Oxygen Flow Rate (L/min) 3 Oxygen Delivery Method Nasal Cannula Weight: 51.6 kg Body Mass Index (BMI) 24.6 Finger Stick Blood Glucose 89 Intake and Output for Last 24 Hours 05/27/19 05/28/19 05/29/19 23:59 23:59 23:59 Intake Total 1110 / 1110 Balance 1110 / 1110 Laboratory Results 05/29/19 11:13: WBC 8.0, RBC 3.86 L, Hgb 11.3 L, Hct 33.8 L, MCV 87.6, MCH 29.3, MCHC 33.4, RDW Std Deviation 42.1, RDW Coeff of Reina 13.2, Plt Count 212, MPV 9.4, Immature Gran % (Auto) 0.800, Neut % (Auto) 70.1 H, Lymph % (Auto) 16.8 L, [place] % (Auto) 10.6 H, Eos % (Auto) 1.4, Baso % (Auto) 0.3, Absolute Neuts (auto) 5.6, Absolute Lymphs (auto) 1.34, Nucleated RBC % 0 05/29/19 11:13: PT Cancelled, INR Cancelled, APTT Cancelled 05/29/19 11:13: Sodium Cancelled, Potassium Cancelled, Chloride Cancelled, Carbon Dioxide Cancelled, Anion Gap Cancelled, BUN Cancelled, Creatinine Cancelled, Estim Creat Clear Calc Cancelled, Est GFR (MDRD) Af Amer Cancelled, Est GFR (MDRD) Non-Af Cancelled, BUN/Creatinine Ratio Cancelled, Glucose Cancelled, Calcium Cancelled 05/29/19 11:13: Hemoglobin A1c 4.8 05/29/19 11:30: PT 13.1, INR 1.0, APTT 32.0 05/29/19 11:30: Sodium 127 L, Potassium 4.7, Chloride 95 L, Carbon Dioxide 27.0, Anion Gap 5, BUN 10, Creatinine 0.52 L, Estim Creat Clear Calc 44.47, Est GFR (MDRD) Af Amer 150, Est GFR (MDRD) Non-Af 124, BUN/Creatinine Ratio 19.0, Glucose 101, Calcium 8.3 L 05/29/19 14:02: POC Glucose 88 Current Medications Albuterol Sulfate (Ventolin Aerosols) 2.5 mg INHALATION Q2H PRN PRN PRN Reason: DYSPNEA Albuterol/Ipratropium (Duoneb) 3 ml INHALATION Q6HWA.RT [facility] Amlodipine Besylate (Norvasc) 2.5 mg PO DAILY [facility] Atorvastatin Calcium (Lipitor) 20 mg PO QHS [facility] Budesonide (Pulmicort Aerosol) 0.5 mg INHALATION BID.RT [facility] Dextrose (D50w Syringe) 0 gm IV X1 PRN; Protocol PRN Reason: Hypoglycemia Enoxaparin Sodium (Lovenox) 40 mg SC DAILY [facility] Gabapentin (Neurontin) 600 mg PO TIDCM [facility] Last Admin: 05/29/19 13:52 Dose: 600 mg Documented by: Glucagon () 1 mg IM .X1 PRN PRN Reason: Hypoglycemia Sodium Chloride () 1,000 mls @ 15 mls/hr IV .Q48H [facility] Last Infusion: 05/29/19 13:48 Dose: Infused Documented by: Sodium Chloride () 1,000 mls @ 100 mls/hr IV .Q10H [facility] Last Admin: 05/29/19 13:22 Dose: 100 mls/hr Documented by: Cefazolin Sodium () 1 gm in 50 mls @ 150 mls/hr IV Q6H [facility] Stop: 05/30/19 09:49 Insulin Human Lispro (Humalog Kwikpen (Bkc)) 0 unit SC ACHS [facility]; Protocol Melatonin (Melatonin) 10 mg PO QHS [facility] Metoprolol Tartrate (Lopressor (Beta Yany)) 50 mg PO TID [facility] Last Admin: 05/29/19 13:52 Dose: 50 mg Documented by: Mirtazapine (Remeron) 15 mg PO QHS [facility] Morphine Sulfate () 4 mg IV Q3H PRN PRN PRN Reason: Pain Score 6-10/10 Last Admin: 05/29/19 13:19 Dose: 4 mg Documented by: Ondansetron HCl (Zofran) 4 mg IV Q8H PRN PRN PRN Reason: NAUSEA/VOMITING Oxycodone HCl (Oxyir) 10 mg PO Q4H PRN PRN PRN Reason: Pain Score 4-5/10 Pantoprazole Sodium (Protonix) 40 mg PO DAILY [facility] Promethazine HCl (Phenergan Tablet) 25 mg PO Q6H PRN PRN PRN Reason: NAUSEA/VOMITING Sodium Chloride (Sodium Chloride) 1 gm PO DAILYCM [facility] Sodium Chloride () 10 - 40 ml IV UD PRN PRN Reason: SALINE FLUSH Assessment/Plan All Active Problems (Last Updated 11/05/18 @ 22:44 by Yumi Munroe) Closed left hip fracture (Acute) Left humeral fracture (Acute) Abdominal pain (Resolved) Foot ulcer, left (Resolved) Fracture of fifth toe, left, closed (Resolved) Hyponatremia (Resolved) Shortness of breath (Resolved) Viral syndrome (Resolved) Cellulitis of foot (Ruled-out) Her diagnosis and treatment options discussed with her at length. She does understand the COVID-19 scenario and increased risks associated with that. She would like to proceed with left hip hemiarthroplasty. Surgical and nonsurgical options have been given. Risk of surgery including but not limited to from operative or postoperative complications. Risk of anesthetic complications such as heart attacks, strokes, seizures, or . Risk of infections. Risk of damage to nerves arteries tendons. Risk of inadvertent fractures or dislocations. Risk of bone or wound healing complications. Possibility of nonunion malunion pain stiffness weakness. Possible need for further surgery such as hardware removal. Risk of DVT PE and other potential complications could lead to or disability explained. No guarantees were stated or implied. All of their questions were answered. Appropriate informed consent was obtained and signed for surgical intervention. Patient evaluated by hospitalist service, cardiology, anesthesia. Deemed adequately stabilized and acceptable risk for surgery. Lovenox for DVT prevention as discussed with Dr. Moore Essential Procedure Criteria Procedure Essential: Yes Criteria Note: On 04/28/2019 the [place] [facility] ([facility]) Public Order signed by [facility] Director Stacy Kraus M.D., regarding the Management of Non- Essential Surgeries and Procedures for the purpose of preserving Personal Protective Equipment (PPE) and critical hospital capacity and resources within [place] went into effect as of 04/29/2019 at 5:00PM. According to the [facility] Public Order: This action will remain in full force and effect until the State of Emergency declared by the Governor no longer exists or the Director of the [facility] rescinds or modifies this Order.. This [facility] order stated all non-essential or elective surgeries and procedures that utilize PPE should be delayed unless there is undue risk to the current or future health of a patient. After reviewing the aforementioned [facility] Public Order and the patients clinical case, I have determined that the scheduled procedure meets the criteria to go forward. Risk to Patient if Procedure Delayed: Threat of permanent dysfunction of an extremity or organ system
--- NOTE | 2019-05-29 16:57 | PCM.OP.PRO ---
Procedure Report Date of Procedure: 05/29/19 Preoperative diagnosis: left hip displaced femoral neck fracture Postoperative diagnosis: Same Operation: lefthip cemented hemiarthroplasty Surgeon: Dr. Abhishek Winters MD Gifted Program Teacher: Sanna Argueta PA-C Anesthesia: General Anesthesiologist; Dr. Sheikh EBL: 125 Special medications: 2 g IV [Ancef], IV Tranexamic acid 2 g intra-articular Indications for surgery : Patient is a 69 -year-old [female] that fell today fracturing his left hip. Also left shoulder fracture . appropriate informed consent was obtained and signed. Appropriate medical workup was performed preoperatively and patient was deemed safe for surgery by the anesthesia department statistical assistant,GENEVA was utilized throughout the entire procedure. They were vital in helping with patient positioning, holding of retractors, exposing the tissues adequately for safe completion of the procedure including cutting of the bone, helping box press operator appropriate alignment and sizing of the components, implantation of the components, as well as wound closure, bandage application, and safe patient transfer. Without neurosurgical nurse practitioner, physician web production assistant, surgical time would have been significantly increased, and surgical outcome would have been less optimal. Operative findings: Patient displaced comminuted right femoral neck fracture. We used a Mansoor Accolade C size 6 stem cemented. Bipolar 45 mm femoral head with a -3 neck length. This reproduced there anatomy nicely. Clinically good leg lengths were noted. Good hip stability through range of motion with no undue pistoning. Standard wound closure in layers, followed by [place], followed by Mepilex dressing Details of procedure: Patient was taken to the operating room and transferred to the operating table. Given appropriate anesthetic agent by that department. Patient was then rolled into a lateral decubitus position with the involved painful hip up in the air. Appropriate timeouts had been performed. Hip had been appropriately marked with my initials. Padded anterior and posterior position was utilized. Axillary roll placed. JER hose and SCDs on the nonoperative limb utilized throughout the procedure. Operative lower extremity was prepped padded and draped in the usual orthopedic sterile fashion for the procedure. I injected the pain relieving solution in the standard sterile technique of the soft tissues of the hip carefully. Incision was made curving over the tip of the greater trochanter posteriorly. Full thickness skin flaps are raised down on the fascia mart. Fascia mart was opened in length with our incision. Charnley self-retaining hip retractor was carefully placed by the surgeon. Leg was appropriately rotated by the web production assistant. 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 Retractor was used to lift the abductors anteriorly to visualize the piriformis tendon and external rotators. Piriformis tendon and external rotators released off the greater trochanter with the Bovie. Tagging suture was placed in each of these separately. We then split the tissue superior to the piriformis tendon through capsule and onto the pelvis. Acetabular labrum was preserved. Retractors were carefully placed around the femoral neck. Displaced unstable femoral neck fracture identified. cutting guide was utilized to map out the proposed cut approximately 1 fingerbreadth above the lesser trochanter. This femoral neck cut was carried out with a saw. Fractured femoral head removed and measured and inspected. Femoral head was measured. Appropriate trial was utilized. A proximal femoral elevator utilized. We used a sharp awl entering down inside the bone of the proximal femur. Utilized the Medicast cutting osteotome the proximal lateral greater trochanteric region. The fragment removed. Broaching was then done from the smallest broach, upto the appropriate size. Good stability was confirmed. We then trialed the construct with a standard neck length and appropriate sized femoral head. We were happy with the construct. Good stability to flexion, rotation. At this point trials removed. 2 full batches of bone cement were mixed. 2 sponges were placed in the acetabulum we prepared the canal with brushing. Cement restrictor was placed down to the appropriate depth. It was thoroughly irrigated clean and dry. When the cement was as the appropriate texture, we pressurized cement down in the femoral canal. The appropriate size stem then hammered into the proximal femur and seated down to a similar position as the trial had. Excess bone cement removed. Based on her short femoral shaft and osteoporosis stem was not inserted fully, but adequately stabilized with bone cement.stem was held still while cement fully hardened. Pain relieving solution was injected while this was occurring. The cement was fully hardened, sponges were removed from the acetabulum. We now again trialed and appropriate neck length decided upon. It was then opened. Now impacted the appropriate sized femoral head, neck construct onto the clean dried trunion. Was noted to be stable. Hip was inspected, and joint was reduced for a final time. Good hip stability and leg lengths noted. This was then irrigated with saline and cleaned. Next the remainder of the pain relieving solution was injected carefully throughout the soft tissues of the hip joint. Closure was carried out with a combination of #1 Vicryl repairing the hip capsule as well as piriformis tendon and external rotators to bone, running #2 strata fix in the fascia mart, followed by mid layer #1 Vicryl with #1 strata fix running. Next running 0 strata fix, followed by skin indiana, Xeroform, Mepilex dressing. We placed JER hose and SCD on the operative leg. Patient awoken from the anesthetic and transferred back to room bed in recovery room in satisfactory condition. Patient will be admitted to the hospital. Hospitalist service will continue to manage the medical issues. Hopeful discharge to home or ECF in 2-3 days. This note was generated with Lookout dictation software. It may contain incorrect words, spelling, and punctuation that were not noted in checking the note before signing.
[2019-05-29] MEDS: Albuterol 2.5 MG/3 ML VIAL.NEB. INHALATION (17:30)
[2019-05-29 17:55] LABS: Bedside Glucose 126 mg/dL (70-110)
--- NOTE | 2019-05-29 17:57 | CPS ---
Critical abg values given to doctor teague
[2019-05-29 18:00] LABS: Base Excess -8 mmol/L (-2 to +2); Bicarbonate 22.6 mmol/L (22-26); PO2 82 mmHG (75-100); SO2 89 % (95-99); Total Carbon Dioxide 25 mmol/L; pCO2 79.7 mmHg (35-45); pH 7.06 (7.35-7.45)
[2019-05-29 18:04] LABS: Blood Gas Specimen Type ART; O2 Delivery Device Nasal Can; SITE R BRACHIAL
--- NOTE | 2019-05-29 18:10 | RAD_ITS ---
STUDY: X-RAY - PELVIS AND LEFT HIP REASON FOR EXAM: Female, 69 years old. Post op left hip TECHNIQUE: 3 views of the pelvis and hip. COMPARISON: 05/29/2019 FINDINGS: The patient is status post left hip arthroplasty. The hardware is intact and alignment is satisfactory. The patient is status post left [id number] amputation. Again noted are vascular stents. RAD/Hip Min 2 Views (Portable) IMPRESSION: Status post left hip arthroplasty with intact hardware in satisfactory alignment. Electronically Signed: Gopal Mejia, at 18:41 EDT Tel , Service support ,
--- NOTE | 2019-05-29 21:30 | NURSING ---
Medications from surgery finished before arriving to floor, no bags hanging when pt arrived. These medications marked complete
[2019-05-29] MEDS: oxyCODONE 5 MG Tablet 10 MG PO (21:41)
[2019-05-29] MEDS: Cefazolin 1 GM/50 ML BAG IV (21:41)
[2019-05-29 21:51] LABS: Bedside Glucose 100 mg/dL (70-110)
[2019-05-29] MEDS: MELATONIN 10 MG TABLET PO (22:01)
[2019-05-29] MEDS: Atorvastatin Calcium 20 MG Tablet PO (22:02)
[2019-05-29] MEDS: Mirtazapine 15 MG Tablet PO (22:04)
[2019-05-29] MEDS: Ipratropium/Albuterol Sulfate 3 ML AMPUL.NEB INHALATION (22:10)
[2019-05-29] MEDS: Budesonide Respules 0.5 MG/2 ML AMPUL.NEB. INHALATION (22:10)
--- NOTE | 2019-05-29 22:17 | CPS ---
Pts. critical results for VBG read to by ELIJAH Patterson. Patient was placed back on BiPAP after results were read to physician. This was around the [id number] time.
--- NOTE | 2019-05-29 22:58 | CPS ---
Pts. IPAP was increased to 16 because of low tidal volumes on IPAP 14. Patient was also a little bit more drowsy, so MANAGER MOLECULAR placed on BiPAP. Volumes were improved after change. RN aware of changes.
[2019-05-29 23:10] LABS: Blood Gas Specimen Type VEN; O2 Delivery Device Nasal Can; SITE R BRACHIAL; Time Given 1927
[2019-05-29 23:11] LABS: VBG BASE EXCESS -10 mmol/L (-1.0-3.5); VBG Bicarbonate 20 mmol/L (22-26); VBG PO2 29 mmHg (25-40); VBG SO2 37 % (50-70); VBG pCO2 59.3 mmHg (41-51); VBG pH 7.13 (7.32-7.42)
[2019-05-30] VITALS (26 sets, daily range): BP systolic 88–123; BP diastolic 40–84; PULSE 65–120; RESP 12–18; TEMP 36.5–37.7; O2SAT 90–100; BMI 24.6
[2019-05-30] MEDS: Cefazolin 1 GM/50 ML BAG IV ×2 (03:17→09:50)
[2019-05-30] MEDS: oxyCODONE 5 MG Tablet 10 MG PO ×4 (03:17→20:03)
[2019-05-30 06:45] LABS: Absolute Lymphocyte Count 0.37 X10^3/uL (0.83-4.51); Absolute Neutrophil Count 4.8 X10^3/uL (2.0-7.7); Eosinophil# 0.01 X10^3/uL; Eosinophils% 0.2 % (0-5); Hematocrit 25.4 % (37-47); Hemoglobin 8.2 g/dL (12.0-15.0); Lymphocyte # 0.37 X10^3/ul (4.0); Lymphocyte % 6.3 % (19-41); Mean Corp Hgb Conc 32.3 g/dL (32-36); Mean Platelet Vol. 9.4 fl (6.2-12.0); Monocyte# 0.62 X10^3/uL; Monocyte% 10.6 % (0-10); NRBC Flagged by Analyzer 0 % (0-5); Neutrophil # 4.81 X10^3/uL (2.7-7.7); Neutrophil % 82.4 % (47-70); POSITIVE DIFFERENTIAL YES; Platelet Count 136 K/mm3 (150-450); RBC Distribution Width CV 13.7 % (11.6-14.6); RBC Distribution Width SD 46.8 fl (35.1-43.9); Red Blood Count 2.73 M/mm3 (4.2-5.4); White Blood Count 5.8 K/mm3 (4.4-11.0)
[2019-05-30 06:53] LABS: Differential Indicated SCAN CRITERIA MET
[2019-05-30] MEDS: Ipratropium/Albuterol Sulfate 3 ML AMPUL.NEB INHALATION ×3 (07:00→18:41)
[2019-05-30] MEDS: Budesonide Respules 0.5 MG/2 ML AMPUL.NEB. INHALATION ×2 (07:00→18:41)
[2019-05-30 07:03] LABS: Anion Gap 8 (5-15); BUN 20 mg/dL (7-18); BUN/Creat Ratio 14.5 RATIO (10-20); Calcium,Total 7.1 mg/dL (8.5-10.1); Chloride 101 mmol/L (98-107); Creatinine, Serum 1.38 mg/dL (0.55-1.02); EST Glomerular Filtration Rate 41 mL/min (>60); Est Glom Filt Rate - Afr Amer 49 mL/min (>60); Estimated Creatinine Clearance 32.22 ml/min; Glucose 102 mg/dL (74-106); Potassium 4.8 mmol/L (3.5-5.1); Sodium Level 129 mmol/L (136-145)
[2019-05-30 07:11] LABS: Bedside Glucose 108 mg/dL (70-110)
--- NOTE | 2019-05-30 08:31 | PCM.PN.ORT ---
Patient Problems: Active and Suspected Problems (Last Updated 11/05/18 @ 22:44 by Yumi Munroe) Closed left hip fracture (Acute) Left humeral fracture (Acute) Subjective: Patient is postoperative day #1 from left hip cemented hemiarthroplasty. She denies chest pain or shortness of breath. She is getting a breathing treatment. She denies left hip pain. Pain currently 0 out of 10. Seen with a nurse present. Objective: Left hip bandages on clean and dry. Left hip has no significant bruising or swelling about the hip. Some bruising at the end of her left thigh. Skin is intact. No significant tenderness. No severe hip pain with range of motion. No deformity. JER hose and SCD on right lower extremity. No calf pain or swelling. Negative Homans sign. Legs neurovascular intact Left shoulder has pain on palpation. Patient had full range of motion the left elbow wrist and fingers. Pulses are intact. Normal sensation at the left hand. No deformity at the left shoulder. Left shoulder motion was not stressed X-rays AP pelvis AP and lateral of left hip from recovery room shows a cemented stem hemiarthroplasty in good position without obvious loosening failure fracture. X-rays reviewed as well as report Laboratory work and vital signs reviewed - Physical Exam Vitals/I&O's: Vital Signs Temp Pulse Resp BP Pulse Ox 97.7 F L 88 16 108/55 L 100 05/30/19 08:25 05/30/19 08:25 05/30/19 08:25 05/30/19 08:25 05/30/19 08:25 Oxygen Flow Rate (L/min) 3 Oxygen Delivery Method Bi-pap Weight: 51.6 kg Body Mass Index (BMI) 24.6 Finger Stick Blood Glucose 126 Intake and Output for Last 24 Hours 05/28/19 05/29/19 05/30/19 23:59 23:59 23:59 Intake Total 4251.67 / 4251.67 880 / 880 Output Total 450 / 450 Balance 4251.67 / 4251.67 430 / 430 Laboratory Results 05/29/19 11:13: WBC 8.0, RBC 3.86 L, Hgb 11.3 L, Hct 33.8 L, MCV 87.6, MCH 29.3, MCHC 33.4, RDW Std Deviation 42.1, RDW Coeff of Reina 13.2, Plt Count 212, MPV 9.4, Immature Gran % (Auto) 0.800, Neut % (Auto) 70.1 H, Lymph % (Auto) 16.8 L, [place] % (Auto) 10.6 H, Eos % (Auto) 1.4, Baso % (Auto) 0.3, Absolute Neuts (auto) 5.6, Absolute Lymphs (auto) 1.34, Nucleated RBC % 0 05/29/19 11:13: PT Cancelled, INR Cancelled, APTT Cancelled 05/29/19 11:13: Sodium Cancelled, Potassium Cancelled, Chloride Cancelled, Carbon Dioxide Cancelled, Anion Gap Cancelled, BUN Cancelled, Creatinine Cancelled, Estim Creat Clear Calc Cancelled, Est GFR (MDRD) Af Amer Cancelled, Est GFR (MDRD) Non-Af Cancelled, BUN/Creatinine Ratio Cancelled, Glucose Cancelled, Calcium Cancelled 05/29/19 11:13: Hemoglobin A1c 4.8 05/29/19 11:30: PT 13.1, INR 1.0, APTT 32.0 05/29/19 11:30: Sodium 127 L, Potassium 4.7, Chloride 95 L, Carbon Dioxide 27.0, Anion Gap 5, BUN 10, Creatinine 0.52 L, Estim Creat Clear Calc 44.47, Est GFR (MDRD) Af Amer 150, Est GFR (MDRD) Non-Af 124, BUN/Creatinine Ratio 19.0, Glucose 101, Calcium 8.3 L 05/29/19 14:02: POC Glucose 88 05/29/19 17:52: Specimen Type ART, Sample Site R BRACHIAL, pH 7.06 L*, Bicarbonate Actual 22.6, POC Total CO2 25, Base Excess -8 L, O2 Saturation 89 L, ABG pCO2 79.7 H*, ABG pO2 82, O2 Delivery Device Nasal Can, Liter Flow 3.0 05/29/19 17:54: POC Glucose 126 H 05/29/19 19:24: Specimen Type OMAIRA, Sample Site R BRACHIAL, VBG pH 7.13 L*, VBG pO2 29, VBG O2 Sat (Calc) 37 L, VBG O2 Content , VBG Base Excess -10 L, POC Mix VBG pCO2 Pt Tmp 59.3 H, O2 Delivery Device Nasal Can, Liter Flow 3.0, Blood Gas Notified Whom OTHER, Blood Gas Notified Time 192605/29/19 20:20: Troponin I 0.484 H 05/29/19 21:39: POC Glucose 100 05/29/19 23:40: Troponin I 0.400 H 05/30/19 06:35: Sodium 129 L, Potassium 4.8, Chloride 101, Carbon Dioxide 20.0 L, Anion Gap 8, BUN 20 H, Creatinine 1.38 H, Estim Creat Clear Calc 32.22, Est GFR (MDRD) Af Amer 49 L, Est GFR (MDRD) Non-Af 41 L, BUN/Creatinine Ratio 14.5, Glucose 102, Calcium 7.1 L 05/30/19 06:35: WBC 5.8, RBC 2.73 L, Hgb 8.2 L, Hct 25.4 L, MCV 93.0 D, MCH 30.0, MCHC 32.3, RDW Std Deviation 46.8 H, RDW Coeff of Reina 13.7, Plt Count 136 L, MPV 9.4, Immature Gran % (Auto) 0.500, Neut % (Auto) 82.4 H, Lymph % (Auto) 6.3 L, [place] % (Auto) 10.6 H, Eos % (Auto) 0.2, Baso % (Auto) 0.0, Absolute Neuts (auto) 4.8, Absolute Lymphs (auto) 0.37 L, Nucleated RBC % 0, Differential Comment COMMENT 05/30/19 06:35: Troponin I 0.708 H* 05/30/19 06:56: POC Glucose 108 Current Medications Albuterol Sulfate (Ventolin Aerosols) 2.5 mg INHALATION Q2H PRN PRN PRN Reason: DYSPNEA Last Admin: 05/29/19 17:30 Dose: 2.5 mg Documented by: Albuterol/Ipratropium (Duoneb) 3 ml INHALATION Q6HWA.RT [facility] [place] Last Admin: 05/30/19 07:00 Dose: 3 ml Documented by: Amlodipine Besylate (Norvasc) 2.5 mg PO DAILY [facility] Atorvastatin Calcium (Lipitor) 20 mg PO QHS [facility] Last Admin: 05/29/19 22:02 Dose: 20 mg Documented by: Budesonide (Pulmicort Aerosol) 0.5 mg INHALATION BID.RT [facility] [place] Last Admin: 05/30/19 07:00 Dose: 0.5 mg Documented by: Dextrose (D50w Syringe) 0 gm IV X1 PRN; Protocol PRN Reason: Hypoglycemia Enoxaparin Sodium (Lovenox) 40 mg SC DAILY [facility] [place] Gabapentin (Neurontin) 600 mg PO TIDCM [facility] [place] Last Admin: 05/29/19 22:00 Dose: 600 mg Documented by: Glucagon () 1 mg IM .X1 PRN PRN Reason: Hypoglycemia Sodium Chloride () 1,000 mls @ 15 mls/hr IV .Q48H [facility] [place] Last Infusion: 05/29/19 13:48 Dose: Infused Documented by: Sodium Chloride () 1,000 mls @ 100 mls/hr IV .Q10H [facility] [place] Last Infusion: 05/30/19 03:37 Dose: 100 mls/hr Documented by: Cefazolin Sodium () 1 gm in 50 mls @ 150 mls/hr IV Q6H [facility] [place] Stop: 05/30/19 09:49 Last Infusion: 05/30/19 03:37 Dose: Infused Documented by: Insulin Human Lispro (Humalog Kwikpen (Bkc)) 0 unit SC ACHS [facility] [place]; Protocol Last Admin: 05/30/19 06:58 Dose: Not Given Documented by: Melatonin (Melatonin) 10 mg PO QHS [facility] [place] Last Admin: 05/29/19 22:01 Dose: 10 mg Documented by: Metoprolol Tartrate (Lopressor (Beta Yany)) 50 mg PO TID [facility] [place] Last Admin: 05/30/19 07:03 Dose: Not Given Documented by: Mirtazapine (Remeron) 15 mg PO QHS [facility] [place] Last Admin: 05/29/19 22:04 Dose: 15 mg Documented by: Morphine Sulfate () 4 mg IV Q3H PRN PRN PRN Reason: Pain Score 6-10/10 Last Admin: 05/29/19 13:19 Dose: 4 mg Documented by: Ondansetron HCl (Zofran) 4 mg IV Q8H PRN PRN PRN Reason: NAUSEA/VOMITING Last Admin: 05/29/19 21:41 Dose: 4 mg Documented by: Oxycodone HCl (Oxyir) 10 mg PO Q4H PRN PRN PRN Reason: Pain Score 4-5/10 Last Admin: 05/30/19 03:17 Dose: 10 mg Documented by: Pantoprazole Sodium (Protonix) 40 mg PO DAILY [facility] Promethazine HCl (Phenergan Tablet) 25 mg PO Q6H PRN PRN PRN Reason: NAUSEA/VOMITING Sodium Chloride (Sodium Chloride) 1 gm PO DAILYCM [facility] Sodium Chloride () 10 - 40 ml IV UD PRN PRN Reason: SALINE FLUSH Medical Necessity - Tobacco Use Smoking Status: Current every day smoker Tobacco Use: Cigarettes Assessment/Plan All Active Problems (Last Updated 11/05/18 @ 22:44 by Yumi Munroe) Closed left hip fracture (Acute) Left humeral fracture (Acute) Abdominal pain (Resolved) Foot ulcer, left (Resolved) Fracture of fifth toe, left, closed (Resolved) Hyponatremia (Resolved) Shortness of breath (Resolved) Viral syndrome (Resolved) Cellulitis of foot (Ruled-out) #1 left hip fracture #2 left shoulder fracture #3 multiple medical problems Treatment options discussed with patient at length. We will continue nonoperative treatment for the left shoulder. We do want active range of motion of left elbow wrist and fingers to avoid stiffness. Okay to keep left shoulder fairly immobile for now. Sling with or without Tyler wrap about her body. We will do routine hip dislocation precautions on the left with no hip flexion greater than 90. Lovenox for DVT prevention as recommended by hospitalist. Okay for discharge from orthopedic standpoint. Caron to be removed in 12 to 14 days. May consider telemedicine visit with x-rays at that point. Likely patient will need ECF due to left upper extremity fracture and left lower extremity above-knee amputation. Orthopedic service will sign off. Can be renotified if needed. Ice left shoulder, left hip PRN pain.
[2019-05-30] MEDS: Gabapentin 600 MG Tablet PO ×2 (08:52→18:15)
[2019-05-30] MEDS: SODIUM CHLORIDE 1 GM TABLET PO (08:52)
[2019-05-30] MEDS: 0.9% Normal Saline 1,000 ML 100 ML IV (09:49)
[2019-05-30] MEDS: Enoxaparin 40 MG/0.4 ML Syringe SC (09:57)
[2019-05-30] MEDS: Pantoprazole Sodium 40 MG Tablet PO (09:57)
[2019-05-30] MEDS: amLODIPine 2.5 MG Tablet PO (09:57)
[2019-05-30] MEDS: Ondansetron 4 MG/2 ML Vial IV (11:14)
[2019-05-30 11:16] LABS: Bedside Glucose 107 mg/dL (70-110)
--- NOTE | 2019-05-30 13:26 | PCM.PN.HOSP ---
Patient Problems: Active and Suspected Problems (Last Updated 11/05/18 @ 22:44 by Yumi Munroe) Closed left hip fracture (Acute) Left humeral fracture (Acute) Reason for Visit: left hip fx Subjective: Pt resting comfortably in bed NAD. Does c/o of ongoing L hip pain. No SOB/cough. Pt had mild confusion post op but this has resolved. She denies SOB or CP. She is stable on baseline O2. No fever/chills. Vitals/I&O's: Vital Signs Temp Pulse Resp BP Pulse Ox 98.3 F 103 H 16 92/73 97 05/30/19 12:30 05/30/19 12:30 05/30/19 12:30 05/30/19 12:30 05/30/19 12:30 Oxygen Flow Rate (L/min) 3 Oxygen Delivery Method Nasal Cannula Weight: 113 lb 12.136 oz Body Mass Index (BMI) 24.6 Finger Stick Blood Glucose 126 Intake and Output for Last 24 Hours 05/28/19 05/29/19 05/30/19 23:59 23:59 23:59 Intake Total 4251.67 / 4251.67 2131.67 / 2131.67 Output Total 450 / 450 Balance 4251.67 / 4251.67 1681.67 / 1681.67 General: Alert, Oriented x3, Cooperative HEENT: Atraumatic, PERRLA, EOMI, Normocephalic Neck: Supple, No JVD, Negative Carotid Bruits Lungs: Clear to auscultation, Normal air movement Cardiovascular: Regular rate, No murmurs Abdomen: Bowel Sounds Present, Soft, Non Tender Extremities: No edema, Capillary Refill Less than 3 Seconds Skin: No rashes, No breakdown Musculoskeletal: No Tenderness to Palpation of Joints or Extremities Neurological: Cranial nerves II-XII grossly intact Psych/Mental Status: Normal Affect, Appropriate, Alert and oriented to time, place, person, mood and affect Laboratory Results 05/29/19 14:02: POC Glucose 88 05/29/19 17:52: Specimen Type ART, Sample Site R BRACHIAL, pH 7.06 L*, Bicarbonate Actual 22.6, POC Total CO2 25, Base Excess -8 L, O2 Saturation 89 L, ABG pCO2 79.7 H*, ABG pO2 82, O2 Delivery Device Nasal Can, Liter Flow 3.0 05/29/19 17:54: POC Glucose 126 H 05/29/19 19:24: Specimen Type OMAIRA, Sample Site R BRACHIAL, VBG pH 7.13 L*, VBG pO2 29, VBG O2 Sat (Calc) 37 L, VBG O2 Content , VBG Base Excess -10 L, POC Mix VBG pCO2 Pt Tmp 59.3 H, O2 Delivery Device Nasal Can, Liter Flow 3.0, Blood Gas Notified Whom OTHER, Blood Gas Notified Time 192605/29/19 20:20: Troponin I 0.484 H 05/29/19 21:39: POC Glucose 100 05/29/19 23:40: Troponin I 0.400 H 05/30/19 06:35: Sodium 129 L, Potassium 4.8, Chloride 101, Carbon Dioxide 20.0 L, Anion Gap 8, BUN 20 H, Creatinine 1.38 H, Estim Creat Clear Calc 32.22, Est GFR (MDRD) Af Amer 49 L, Est GFR (MDRD) Non-Af 41 L, BUN/Creatinine Ratio 14.5, Glucose 102, Calcium 7.1 L 05/30/19 06:35: WBC 5.8, RBC 2.73 L, Hgb 8.2 L, Hct 25.4 L, MCV 93.0 D, MCH 30.0, MCHC 32.3, RDW Std Deviation 46.8 H, RDW Coeff of Reina 13.7, Plt Count 136 L, MPV 9.4, Immature Gran % (Auto) 0.500, Neut % (Auto) 82.4 H, Lymph % (Auto) 6.3 L, [place] % (Auto) 10.6 H, Eos % (Auto) 0.2, Baso % (Auto) 0.0, Absolute Neuts (auto) 4.8, Absolute Lymphs (auto) 0.37 L, Nucleated RBC % 0, Differential Comment COMMENT 05/30/19 06:35: Troponin I 0.708 H* 05/30/19 06:56: POC Glucose 108 05/30/19 11:11: POC Glucose 107 Current Medications Albuterol Sulfate (Ventolin Aerosols) 2.5 mg INHALATION Q2H PRN PRN PRN Reason: DYSPNEA Last Admin: 05/29/19 17:30 Dose: 2.5 mg Documented by: Albuterol/Ipratropium (Santosoneb) 3 ml INHALATION Q6HWA.RT [facility] Last Admin: 05/30/19 07:00 Dose: 3 ml Documented by: Amlodipine Besylate (Norvasc) 2.5 mg PO DAILY [facility] Last Admin: 05/30/19 09:57 Dose: 2.5 mg Documented by: Atorvastatin Calcium (Lipitor) 20 mg PO QHS [facility] Last Admin: 05/29/19 22:02 Dose: 20 mg Documented by: Budesonide (Pulmicort Aerosol) 0.5 mg INHALATION BID.RT [facility] Last Admin: 05/30/19 07:00 Dose: 0.5 mg Documented by: Dextrose (D50w Syringe) 0 gm IV X1 PRN; Protocol PRN Reason: Hypoglycemia Enoxaparin Sodium (Lovenox) 40 mg SC DAILY [facility] Last Admin: 05/30/19 09:57 Dose: 40 mg Documented by: Gabapentin (Neurontin) 600 mg PO TIDCM [facility] Last Admin: 05/30/19 12:52 Dose: Not Given Documented by: Glucagon () 1 mg IM .X1 PRN PRN Reason: Hypoglycemia Sodium Chloride () 1,000 mls @ 15 mls/hr IV .Q48H [facility] Last Infusion: 05/29/19 13:48 Dose: Infused Documented by: Sodium Chloride () 1,000 mls @ 100 mls/hr IV .Q10H [facility] Last Infusion: 05/30/19 10:50 Dose: 100 mls/hr Documented by: Insulin Human Lispro (Humalog Kwikpen (Bkc)) 0 unit SC ACHS [facility]; Protocol Last Admin: 05/30/19 11:17 Dose: Not Given Documented by: Melatonin (Melatonin) 10 mg PO QHS [facility] Last Admin: 05/29/19 22:01 Dose: 10 mg Documented by: Metoprolol Tartrate (Lopressor (Beta Yany)) 50 mg PO TID [facility] Last Admin: 05/30/19 07:03 Dose: Not Given Documented by: Mirtazapine (Remeron) 15 mg PO QHS [facility] Last Admin: 05/29/19 22:04 Dose: 15 mg Documented by: Morphine Sulfate () 4 mg IV Q3H PRN PRN PRN Reason: Pain Score 6-10/10 Last Admin: 05/29/19 13:19 Dose: 4 mg Documented by: Ondansetron HCl (Zofran) 4 mg IV Q8H PRN PRN PRN Reason: NAUSEA/VOMITING Last Admin: 05/30/19 11:14 Dose: 4 mg Documented by: Oxycodone HCl (Oxyir) 10 mg PO Q4H PRN PRN PRN Reason: Pain Score 4-5/10 Last Admin: 05/30/19 08:50 Dose: 10 mg Documented by: Pantoprazole Sodium (Protonix) 40 mg PO DAILY [facility] Last Admin: 05/30/19 09:57 Dose: 40 mg Documented by: Promethazine HCl (Phenergan Tablet) 25 mg PO Q6H PRN PRN PRN Reason: NAUSEA/VOMITING Sodium Chloride (Sodium Chloride) 1 gm PO DAILY[facility] Last Admin: 05/30/19 08:52 Dose: 1 gm Documented by: Sodium Chloride () 10 - 40 ml IV UD PRN PRN Reason: SALINE FLUSH STROKE Vital Signs/Narrative: Vital Signs Temp Pulse Resp BP BP Pulse Ox 05/30/19 12:30 98.3 F 103 H 16 92/73 97 05/30/19 10:30 90 05/30/19 10:02 103 H 107/53 L Medical Necessity - Tobacco Use Smoking Status: Current every day smoker Tobacco Use: Cigarettes Assessment/Plan All Active Problems (Last Updated 11/05/18 @ 22:44 by Yumi Munroe) Closed left hip fracture (Acute) Left humeral fracture (Acute) Abdominal pain (Resolved) Foot ulcer, left (Resolved) Fracture of fifth toe, left, closed (Resolved) Hyponatremia (Resolved) Shortness of breath (Resolved) Viral syndrome (Resolved) Cellulitis of foot (Ruled-out) 1. Acute left femoral neck fx - consult to cardiology - s/p hemiarthroplasty POD#1. Hgb 11.3 --> 8.2. EBL 125 per op note. Will trend. No arnold bleeding. Received emmett op cefazolin and tranexamic acid. 2. NSTEMI - trop max 0.708. cardiology following. Pt asymptomatic. Repeat AM EKG, maintain on tele. No acute intervention for now. 3. Creatinine trending up. Continue IVF. Recheck in AM. 4. PAD with prior L AKA - hold plavix. 5. COPD with chronic hypoxic respiratory failure - no exacerbation - continue 3lpm o2. Prn aerosols. 6. Hx diastolic CHF - stress echo 04/28 with EF 60%. No exacerbation. Not on home lasix. 7. Hx Seizure - continue neurontin 8. Chronic hyponatremia - continue sodium tabs. 9. DMt2 - diet controlled. accuchecks + SSI. A1C 4.8. 10. HLD - lipitor. 11. HTN - elevated 2/2 pain, continue home meds. 12. GERD - PPI 13. Mild thrombocytopenia - trend. Continue to hold plavix. DVT ppx: lovenox. Trend Platelets. DC planning: likely needs SNF - pt interested in TCU, possibly [facility]. This patient was seen by Camron Mackey PA-C under the supervision of Dr. Carlson.
[2019-05-30] MEDS: hydrOXYzine PAM 25 MG Capsule PO (14:20)
--- NOTE | 2019-05-30 15:42 | CASEMGMT ---
SOCIAL WORK REFERRAL FOR GROUP HOME PLACEMENT MET WITH PATIENT IN ROOM. INTRODUCED ROLE AND REASON FOR REFERRAL. PATIENT REPORTS FROM HOME WITH BROTHER, FIONA. PATIENT STATES TOOK A FALL YESTERDAY AND BROKE HIP AND SHOULDER. PATIENT WANTING REFERRAL TO TCU. CALL TO TCU REFERRAL LINE. LEFT MESSAGE. SW TO FOLLOW UP SATURDAY. AYANA YU, AIRCRAFT DESIGNER.
[2019-05-30 16:40] LABS: Bedside Glucose 83 mg/dL (70-110)
[2019-05-30 17:05] LABS: Bacteria 0 SEEN /hpf (None Seen); Mucous, Urine 0 SEEN /hpf (<or=2+); Red Blood Cells-Urine 0 SEEN /hpf (0-5); Squamous Epithelial Cells - UA 0 SEEN /hpf (5-10)
[2019-05-30 17:13] LABS: Color, Urine Yellow (Yellow); Glucose, Dipstick Normal (Normal); Ketone-Dipstick Negative (Negative); Leukocyte Esterase-Dipstick 500 /ul (Negative); Nitrite-Dipstick Negative (Negative); Occult Blood-Urine 150 /ul (Negative); Protein-Dipstick 100 mg/dl (Negative); Specific Gravity, Urine 1.015 (1.002-1.030); Urine Bilirubin Dipstick Negative (Negative); Urine Clarity Cloudy (Clear); Urine Urobilinogen Normal (Normal)
[2019-05-30 17:19] LABS: White Blood Cells >100 SEEN /hpf (0-5)
[2019-05-30] MEDS: Mirtazapine 15 MG Tablet PO (21:17)
[2019-05-30] MEDS: MELATONIN 10 MG TABLET PO (21:17)
[2019-05-30] MEDS: Atorvastatin Calcium 20 MG Tablet PO (21:17)
[2019-05-30 21:31] LABS: Bedside Glucose 101 mg/dL (70-110)
[2019-05-30 22:43] LABS: Absolute Lymphocyte Count 0.58 X10^3/uL (0.83-4.51); Absolute Neutrophil Count 3.1 X10^3/uL (2.0-7.7); Basophil# 0.01 X10^3/uL; Basophil% 0.2 % (0-1); Differential Indicated SCAN CRITERIA MET; Eosinophil# 0.04 X10^3/uL; Eosinophils% 0.9 % (0-5); Hematocrit 21.3 % (37-47); Hemoglobin 6.8 g/dL (12.0-15.0); Lymphocyte # 0.58 X10^3/ul (4.0); Lymphocyte % 13.6 % (19-41); Mean Corp Hgb Conc 31.9 g/dL (32-36); Mean Corpuscular Hgb 29.6 pg (27.0-32.0); Mean Corpuscular Volume 92.6 fL (81-99); Mean Platelet Vol. 9.5 fl (6.2-12.0); Monocyte# 0.47 X10^3/uL; Monocyte% 11.1 % (0-10); NRBC Flagged by Analyzer 0 % (0-5); Neutrophil # 3.13 X10^3/uL (2.7-7.7); Neutrophil % 73.7 % (47-70); POSITIVE DIFFERENTIAL YES; Platelet Count 101 K/mm3 (150-450); RBC Distribution Width CV 13.6 % (11.6-14.6); RBC Distribution Width SD 45.1 fl (35.1-43.9); White Blood Count 4.3 K/mm3 (4.4-11.0)
[2019-05-30 23:10] LABS: Differential Comment SCANNED
[2019-05-31] VITALS (30 sets, daily range): BP systolic 88–137; BP diastolic 51–89; PULSE 92–122; RESP 12–18; TEMP 36.3–37.3; O2SAT 90–99
[2019-05-31] MEDS: 0.9% Saline Lock 10 ML Syringe IV ×2 (01:40→06:23)
--- NOTE | 2019-05-31 05:55 | EKG12_ITS ---
Test Reason : AM Blood Pressure : / mmHG Vent. Rate : 101 BPM Atrial Rate : 101 BPM P-R Int : 206 ms QRS Dur : 076 ms QT Int : 304 ms P-R-T Axes : 066 023 081 degrees QTc Int : 394 ms Sinus tachycardia Nonspecific T wave abnormality Abnormal ECG Confirmed by RAJI GARCIA, GINA ([id number]), editor book SOLO VAZQUEZ ([id number]) on 06/03/2019 9:55:08 AM Referred By: JOHNNY Confirmed By:GINA ALEGRIA MD
[2019-05-31] MEDS: Morphine 4 MG/ML Syringe IV (06:19)
[2019-05-31] MEDS: Metoprolol Tartrate 50 MG Tablet PO ×3 (06:28→21:45)
[2019-05-31 06:41] LABS: Bedside Glucose 83 mg/dL (70-110)
[2019-05-31] MEDS: Ondansetron 4 MG/2 ML Vial IV (06:52)
[2019-05-31 09:40] LABS: Absolute Lymphocyte Count 0.53 X10^3/uL (0.83-4.51); Absolute Neutrophil Count 6.2 X10^3/uL (2.0-7.7); Basophil# 0.01 X10^3/uL; Basophil% 0.1 % (0-1); Eosinophil# 0.08 X10^3/uL; Hematocrit 30.9 % (37-47); Hemoglobin 10.3 g/dL (12.0-15.0); Lymphocyte # 0.53 X10^3/ul (4.0); Lymphocyte % 6.8 % (19-41); Mean Corp Hgb Conc 33.3 g/dL (32-36); Mean Corpuscular Hgb 30.2 pg (27.0-32.0); Mean Corpuscular Volume 90.6 fL (81-99); Mean Platelet Vol. 9.6 fl (6.2-12.0); Monocyte# 0.82 X10^3/uL; Monocyte% 10.6 % (0-10); NRBC Flagged by Analyzer 0 % (0-5); Neutrophil # 6.23 X10^3/uL (2.7-7.7); Neutrophil % 80.6 % (47-70); POSITIVE COUNT YES; POSITIVE DIFFERENTIAL YES; Platelet Count 94 K/mm3 (150-450); RBC Distribution Width CV 13.6 % (11.6-14.6); RBC Distribution Width SD 45.3 fl (35.1-43.9); Red Blood Count 3.41 M/mm3 (4.2-5.4); White Blood Count 7.7 K/mm3 (4.4-11.0)
[2019-05-31 09:41] LABS: Differential Indicated SCAN CRITERIA MET
[2019-05-31 09:43] LABS: Anion Gap 9 (5-15); BUN 24 mg/dL (7-18); BUN/Creat Ratio 12.4 RATIO (10-20); Calcium,Total 7.3 mg/dL (8.5-10.1); Chloride 99 mmol/L (98-107); Creatinine, Serum 1.94 mg/dL (0.55-1.02); EST Glomerular Filtration Rate 27 mL/min (>60); Est Glom Filt Rate - Afr Amer 33 mL/min (>60); Estimated Creatinine Clearance 24.79 ml/min; Glucose 100 mg/dL (74-106); Potassium 4.8 mmol/L (3.5-5.1); Sodium Level 126 mmol/L (136-145)
[2019-05-31 10:07] LABS: Platelet Estimate MOD DEC (ADEQ)
[2019-05-31] MEDS: oxyCODONE 5 MG Tablet 10 MG PO ×3 (10:44→20:28)
[2019-05-31] MEDS: Polyethylene Glycol 3350 17 GM PACKET PO ×2 (10:44→21:46)
[2019-05-31] MEDS: Gabapentin 600 MG Tablet PO ×3 (10:45→16:30)
[2019-05-31] MEDS: SODIUM CHLORIDE 1 GM TABLET PO (10:45)
[2019-05-31] MEDS: Pantoprazole Sodium 40 MG Tablet PO (10:45)
[2019-05-31] MEDS: amLODIPine 2.5 MG Tablet PO (10:45)
--- NOTE | 2019-05-31 10:47 | PN_ITS ---
Patient Problems: Active and Suspected Problems (Last Updated 11/05/18 @ 22:44 by Yumi Munroe) Closed left hip fracture (Acute) Left humeral fracture (Acute) Reason for Visit: left hip fx Subjective: Pt c/o nausea and 8/10 hip pain. No CP, pressure, tightness, heaviness, LH, dizziness, SOB. Vitals/I&O's: Vital Signs Temp Pulse Resp BP Pulse Ox 98 F 120 H 18 128/89 H 90 05/31/19 06:44 05/31/19 07:53 05/31/19 06:44 05/31/19 06:44 05/31/19 07:05 Oxygen Flow Rate (L/min) 3 Oxygen Delivery Method Nasal Cannula Weight: 123 lb 0.287 oz Body Mass Index (BMI) 24.6 Finger Stick Blood Glucose 126 Intake and Output for Last 24 Hours 05/29/19 05/30/19 05/31/19 23:59 23:59 23:59 Intake Total 4251.67 / 4251.67 4048.34 / 4048.34 720 / 720 Output Total 600 / 800 350 / 350 Balance 4251.67 / 4251.67 3448.34 / 3248.34 370 / 370 General: Alert, Oriented x3, Cooperative HEENT: Atraumatic, PERRLA, EOMI, Normocephalic Neck: Supple, No JVD, Negative Carotid Bruits Lungs: Clear to auscultation, Normal air movement Cardiovascular: Regular rate, No murmurs Abdomen: Bowel Sounds Present, Soft, Non Tender Extremities: No edema, Capillary Refill Less than 3 Seconds Skin: No rashes, No breakdown Musculoskeletal: No Tenderness to Palpation of Joints or Extremities Neurological: Cranial nerves II-XII grossly intact Psych/Mental Status: Normal Affect, Appropriate, Alert and oriented to time, place, person, mood and affect Laboratory Results 05/30/19 11:11: POC Glucose 107 05/30/19 16:35: POC Glucose 83 05/30/19 16:45: Urine Color Yellow, Urine Clarity Cloudy, Urine pH 6.0, Ur Specific [place] 1.015, Urine Protein 100 H, Urine Glucose (UA) Normal, Urine Ketones Negative, Urine Occult Blood 150 H, Urine Nitrite Negative, Urine Bilirubin Negative, Urine Urobilinogen Normal, Ur Leukocyte Esterase 500 H, Urine RBC 0 SEEN, Urine WBC >100 SEEN, Ur Squamous Epith Cells 0 SEEN, Urine Bacteria 0 SEEN, Urine Mucus 0 SEEN 05/30/19 21:05: POC Glucose 101 05/30/19 22:35: WBC 4.3 L, RBC 2.30 L, Hgb 6.8 L, Hct 21.3 L, MCV 92.6, MCH 29.6, MCHC 31.9 L, RDW Std Deviation 45.1 H, RDW Coeff of Reina 13.6, Plt Count 101 L, MPV 9.5, Immature Gran % (Auto) 0.500, Neut % (Auto) 73.7 H, Lymph % (Auto) 13.6 L, [place] % (Auto) 11.1 H, Eos % (Auto) 0.9, Baso % (Auto) 0.2, Absolute Neuts (auto) 3.1, Absolute Lymphs (auto) 0.58 L, Nucleated RBC % 0, Differential Comment SCANNED, Diff Path Review June05/30/19 23:42: Blood Type A POSITIVE, Antibody Screen NEGATIVE, Crossmatch See Detail 05/31/19 06:36: POC Glucose 83 05/31/19 09:17: WBC 7.7, RBC 3.41 L, Hgb 10.3 L, Hct 30.9 L, MCV 90.6, MCH 30.2, MCHC 33.3, RDW Std Deviation 45.3 H, RDW Coeff of Reina 13.6, Plt Count 94 L, MPV 9.6, Immature Gran % (Auto) 0.900, Neut % (Auto) 80.6 H, Lymph % (Auto) 6.8 L, [place] % (Auto) 10.6 H, Eos % (Auto) 1.0, Baso % (Auto) 0.1, Absolute Neuts (auto) 6.2, Absolute Lymphs (auto) 0.53 L, Nucleated RBC % 0, Differential Comment COMMENT, Platelet Estimate MOD 05/31/19 09:17: Sodium 126 L, Potassium 4.8, Chloride 99, Carbon Dioxide 18.0 L, Anion Gap 9, BUN 24 H, Creatinine 1.94 H, Estim Creat Clear Calc 24.79, Est GFR (MDRD) Af Amer 33 L, Est GFR (MDRD) Non-Af 27 L, BUN/Creatinine Ratio 12.4, Glucose 100, Calcium 7.3 L 05/31/19 09:17: B-Natriuretic Peptide 754.0 H Current Medications Albuterol Sulfate (Ventolin Aerosols) 2.5 mg INHALATION Q2H PRN PRN PRN Reason: DYSPNEA Last Admin: 05/29/19 17:30 Dose: 2.5 mg Documented by: Albuterol/Ipratropium (Duoneb) 3 ml INHALATION Q6HWA.RT [facility] Last Admin: 05/31/19 07:05 Dose: Not Given Documented by: Amlodipine Besylate (Norvasc) 2.5 mg PO DAILY [facility] Last Admin: 05/31/19 10:45 Dose: 2.5 mg Documented by: Atorvastatin Calcium (Lipitor) 20 mg PO QHS [facility] Last Admin: 05/30/19 21:17 Dose: 20 mg Documented by: Budesonide (Pulmicort Aerosol) 0.5 mg INHALATION BID.RT [facility] Last Admin: 05/31/19 07:05 Dose: Not Given Documented by: Dextrose (D50w Syringe) 0 gm IV X1 PRN; Protocol PRN Reason: Hypoglycemia Gabapentin (Neurontin) 600 mg PO TIDCM [facility] Last Admin: 05/31/19 10:45 Dose: 600 mg Documented by: Glucagon () 1 mg IM .X1 PRN PRN Reason: Hypoglycemia Hydroxyzine Pamoate (Vistaril Pamoate Capsule) 25 mg PO TID PRN PRN PRN Reason: ANXIETY Last Admin: 05/30/19 14:20 Dose: 25 mg Documented by: Sodium Chloride () 1,000 mls @ 15 mls/hr IV .Q48H [facility] Last Infusion: 05/29/19 13:48 Dose: Infused Documented by: Sodium Chloride () 1,000 mls @ 100 mls/hr IV .Q10H [facility] Last Admin: 05/30/19 20:42 Dose: Not Given Documented by: Insulin Human Lispro (Humalog Kwikpen (Bkc)) 0 unit SC ACHS [facility]; Protocol Last Admin: 05/31/19 06:50 Dose: Not Given Documented by: Melatonin (Melatonin) 10 mg PO QHS [facility] Last Admin: 05/30/19 21:17 Dose: 10 mg Documented by: Metoprolol Tartrate (Lopressor (Beta Yany)) 50 mg PO TID [facility] Last Admin: 05/31/19 06:28 Dose: 50 mg Documented by: Mirtazapine (Remeron) 15 mg PO QHS [facility] Last Admin: 05/30/19 21:17 Dose: 15 mg Documented by: Morphine Sulfate () 4 mg IV Q3H PRN PRN PRN Reason: Pain Score 6-10/10 Last Admin: 05/31/19 06:19 Dose: 4 mg Documented by: Ondansetron HCl (Zofran) 4 mg IV Q8H PRN PRN PRN Reason: NAUSEA/VOMITING Last Admin: 05/31/19 06:52 Dose: 4 mg Documented by: Oxycodone HCl (Oxyir) 10 mg PO Q4H PRN PRN PRN Reason: Pain Score 4-5/10 Last Admin: 05/31/19 10:44 Dose: 10 mg Documented by: Pantoprazole Sodium (Protonix) 40 mg PO DAILY [facility] Last Admin: 05/31/19 10:45 Dose: 40 mg Documented by: Polyethylene Glycol (Miralax) 17 gm PO BID [facility] Last Admin: 05/31/19 10:44 Dose: 17 gm Documented by: Promethazine HCl (Phenergan Tablet) 25 mg PO Q6H PRN PRN PRN Reason: NAUSEA/VOMITING Sodium Chloride (Sodium Chloride) 1 gm PO DAILYCM [facility] Last Admin: 05/31/19 10:45 Dose: 1 gm Documented by: Sodium Chloride () 10 - 40 ml IV UD PRN PRN Reason: SALINE FLUSH Last Admin: 05/31/19 06:23 Dose: 20 ml Documented by: Tamsulosin HCl (Flomax) 0.4 mg PO DAILY@1730 [facility] Last Admin: 05/30/19 17:38 Dose: Not Given Documented by: STROKE Vital Signs/Narrative: Vital Signs Pulse Pulse Ox 05/31/19 07:53 120 H 05/31/19 07:05 90 Medical Necessity - Tobacco Use Smoking Status: Current every day smoker Tobacco Use: Cigarettes Assessment/Plan All Active Problems (Last Updated 11/05/18 @ 22:44 by Yumi Munroe) Closed left hip fracture (Acute) Left humeral fracture (Acute) Abdominal pain (Resolved) Foot ulcer, left (Resolved) Fracture of fifth toe, left, closed (Resolved) Hyponatremia (Resolved) Shortness of breath (Resolved) Viral syndrome (Resolved) Cellulitis of foot (Ruled-out) 1. Acute left femoral neck fx - consult to cardiology - Pt of Dr. Winters. s/p hemiarthroplasty. EBL 125 per op note. Will trend. No arnold bleeding. Received emmett op cefazolin and tranexamic acid. 2. Post op anemia - transfuse 2 units prbc. Monitor platelets. 3. PAOLO - suspect hypoperfusion 2/2 anemia, resume IV fluids. check FENA, BNP. 4. NSTEMI - trop max 0.708. cardiology following. Pt asymptomatic. maintain on tele. No acute intervention for now. 5. PAD with prior L AKA - hold plavix. 6. COPD with chronic hypoxic respiratory failure - no exacerbation - continue 3lpm o2. Prn aerosols. 7. Hx diastolic CHF - stress echo 04/28 with EF 60%. No exacerbation. Not on home lasix. 8. Hx Seizure - continue neurontin 9. Chronic hyponatremia - continue sodium tabs. 10. DMt2 - diet controlled. accuchecks + SSI. A1C 4.8. 11. HLD - lipitor. 12. HTN - elevated 2/2 pain, continue home meds. 13. GERD - PPI 14. Mild thrombocytopenia - trend. Continue to hold plavix. DVT ppx: hold lovenox. Trend Platelets. DC planning: likely needs SNF - pt interested in TCU, possibly [facility]. This patient was seen by Camron Mackey PA-C under the supervision of Dr. Carlson.
[2019-05-31 11:51] LABS: Bedside Glucose 130 mg/dL (70-110)
[2019-05-31] MEDS: Ipratropium/Albuterol Sulfate 3 ML AMPUL.NEB INHALATION ×2 (13:09→20:08)
[2019-05-31] MEDS: 0.9% Normal Saline 1,000 ML 100 ML IV (14:06)
[2019-05-31 14:12] LABS: Urine Sodium 37 mmol/L (Not Establ.)
[2019-05-31] MEDS: Tamsulosin HCl 0.4 MG Capsule PO (16:23)
[2019-05-31 16:46] LABS: Bedside Glucose 100 mg/dL (70-110)
[2019-05-31] MEDS: Budesonide Respules 0.5 MG/2 ML AMPUL.NEB. INHALATION (20:09)
[2019-05-31 21:41] LABS: Bedside Glucose 125 mg/dL (70-110)
[2019-05-31] MEDS: Atorvastatin Calcium 20 MG Tablet PO (21:44)
[2019-05-31] MEDS: MELATONIN 10 MG TABLET PO (21:44)
[2019-05-31] MEDS: Mirtazapine 15 MG Tablet PO (21:46)
[2019-06-01] VITALS (13 sets, daily range): BP systolic 124–152; BP diastolic 55–84; PULSE 82–110; RESP 14–20; TEMP 36.9–37.5; O2SAT 92–95
[2019-06-01] MEDS: 0.9% Normal Saline 1,000 ML 100 ML IV (00:42)
[2019-06-01] MEDS: oxyCODONE 5 MG Tablet 10 MG PO ×2 (05:28→12:51)
[2019-06-01] MEDS: Metoprolol Tartrate 50 MG Tablet PO ×2 (05:29→13:40)
[2019-06-01] MEDS: Albuterol 2.5 MG/3 ML VIAL.NEB. INHALATION (05:30)
[2019-06-01 06:15] LABS: Absolute Lymphocyte Count 0.82 X10^3/uL (0.83-4.51); Absolute Neutrophil Count 3.7 X10^3/uL (2.0-7.7); Basophil# 0.02 X10^3/uL; Basophil% 0.4 % (0-1); Eosinophil# 0.12 X10^3/uL; Eosinophils% 2.2 % (0-5); Hematocrit 29.9 % (37-47); Hemoglobin 10.1 g/dL (12.0-15.0); Lymphocyte # 0.82 X10^3/ul (4.0); Lymphocyte % 15.2 % (19-41); Mean Corp Hgb Conc 33.8 g/dL (32-36); Mean Corpuscular Volume 88.7 fL (81-99); Mean Platelet Vol. 9.6 fl (6.2-12.0); Monocyte# 0.68 X10^3/uL; Monocyte% 12.6 % (0-10); NRBC Flagged by Analyzer 0 % (0-5); Neutrophil # 3.73 X10^3/uL (2.7-7.7); POSITIVE COUNT YES; Platelet Count 92 K/mm3 (150-450); RBC Distribution Width CV 14.2 % (11.6-14.6); RBC Distribution Width SD 46.3 fl (35.1-43.9); Red Blood Count 3.37 M/mm3 (4.2-5.4); White Blood Count 5.4 K/mm3 (4.4-11.0)
[2019-06-01 06:27] LABS: Anion Gap 6 (5-15); BUN 22 mg/dL (7-18); BUN/Creat Ratio 13.9 RATIO (10-20); Calcium,Total 7.7 mg/dL (8.5-10.1); Chloride 104 mmol/L (98-107); Creatinine, Serum 1.58 mg/dL (0.55-1.02); EST Glomerular Filtration Rate 35 mL/min (>60); Est Glom Filt Rate - Afr Amer 42 mL/min (>60); Estimated Creatinine Clearance 30.55 ml/min; Glucose 101 mg/dL (74-106); Potassium 4.5 mmol/L (3.5-5.1); Sodium Level 132 mmol/L (136-145)
[2019-06-01 06:46] LABS: Bedside Glucose 110 mg/dL (70-110)
[2019-06-01] MEDS: Ipratropium/Albuterol Sulfate 3 ML AMPUL.NEB INHALATION ×2 (07:37→13:22)
[2019-06-01] MEDS: Budesonide Respules 0.5 MG/2 ML AMPUL.NEB. INHALATION (07:37)
[2019-06-01] MEDS: 0.9% Saline Lock 10 ML Syringe IV ×2 (08:44→12:52)
[2019-06-01] MEDS: Morphine 4 MG/ML Syringe IV (08:44)
--- NOTE | 2019-06-01 09:05 | CASEMGMT ---
YASMIN spoke with Chyna in TCU and she can accept patient. YASMIN will notify patient. Plan: [facility] TCU pending insurance approval Carolyn PIÑA
--- NOTE | 2019-06-01 09:44 | CASEMGMT ---
YASMIN let patient know that TCU can accept her and once her insurance approves her she can go to TCU. Carolyn RUIZ MSW
[2019-06-01] MEDS: Gabapentin 600 MG Tablet PO ×2 (09:52→12:47)
[2019-06-01] MEDS: Pantoprazole Sodium 40 MG Tablet PO (09:52)
[2019-06-01] MEDS: SODIUM CHLORIDE 1 GM TABLET PO (09:52)
[2019-06-01] MEDS: Polyethylene Glycol 3350 17 GM PACKET PO (09:52)
[2019-06-01] MEDS: amLODIPine 2.5 MG Tablet PO (09:54)
[2019-06-01 10:27] LABS: Pathologist Review Reviewed
--- NOTE | 2019-06-01 11:09 | PCM.EXTCARCO ---
- Diet 05/29/19 12:53 Diet: Cardiac: Calorie-Controlled Food consistency:: Regular Liquid Consistency:: Regular/Thin Type of Dietary Supplement:: Ensure Complete How many daily calories?: 1800 calorie - Routine Orders/Code Status Suppository Type: Dulcolax 10mg Suppository Frequency: Daily PRN O2 Frequency: Continuous Keep PO Greater than or Equal to (%): 89 Routine Lab Work: CBC - 2 days, BMP - 5 days Code Status: Full Code - Wound(s) LT HIP Wound Type: Surgical Incision - Therapies Physical Therapy: Eval and Treat Occupational Therapy: Eval and Treat - Problem/Diagnosis (1) Thrombocytopenia Status: Acute Current Visit: Yes (2) Anemia Status: Acute Current Visit: Yes (3) Closed left hip fracture Status: Acute Current Visit: Yes (4) Left humeral fracture Status: Acute Current Visit: Yes (5) Hyponatremia Status: Chronic Current Visit: Yes (6) CHF (congestive heart failure) Status: Chronic Current Visit: No (7) COPD (chronic obstructive pulmonary disease) Status: Chronic Current Visit: No (8) Seizures Status: Chronic Current Visit: No (9) Diabetes Status: Chronic Current Visit: No (10) Essential (primary) hypertension Status: Chronic Current Visit: No (11) Hyperlipidemia Status: Chronic Current Visit: No (12) Peripheral arterial occlusive disease Status: Chronic Current Visit: No - Allergies/Procedures Done in Hospital Allergies/Adverse Reactions: Allergies levofloxacin [From Levaquin] Allergy (Verified 05/29/19 10:10) Other Red streak up her arm and itiching pregabalin [From Lyrica] Allergy (Verified 05/29/19 10:10) Other Sulfa (Sulfonamide Antibiotics) Allergy (Verified 05/29/19 10:10) Anaphylaxis duloxetine [From Cymbalta] Adverse Reaction (Verified 05/29/19 10:10) Vomiting sertraline HCl [From Zoloft] Adverse Reaction (Verified 05/29/19 10:10) MAKES ME CRAZY makes me crazy Procedures: None - Type of Care/Length of Stay Estimated LOS: Convalescent Care Less Than 30 days Type of Care Needed: Skilled Rehab Potential: Fair Prognosis: Fair - Additional Orders/Day of Discharge Day of Discharge: 06/01/19 - Follow Up Care Primary Care Physician: Irasema Jonas MD [Primary Care Provider] - Please follow up with your Primary Care Physician in: 1-2 weeks Please Follow Up With: Abhishek Winters MD - Tele health visit When: 12-14 days
[2019-06-01 11:15] LABS: Bedside Glucose 125 mg/dL (70-110)
--- NOTE | 2019-06-01 11:19 | CASEMGMT ---
Received a call from Chyna in TCU and patient was approved. YASMIN notified RN SUKHDEEP who notified Camron BEAN. YASMIN also notified RN who notified patient, nurse discharge planner, and medical secretary teacher. Plan: [facility] TCU under skilled level of care Carolyn PIÑA
--- NOTE | 2019-06-01 11:59 | PCM.DC.SUM ---
<Camron Mackey - Last Filed: 06/01/19 15:06> Discharge Date and Diagnosis Date of Admission: 05/29/19 Date of Discharge: 06/01/19 - Primary Discharge Diagnosis Active and Suspected Problems (Last Updated 11/05/18 @ 22:44 by Yumi Munroe) Closed left hip fracture s/p hemiarthroplasty Left humeral fracture (Acute) Anemia Thrombocytopenia Elevated troponin, Nstemi PAOLO suspected hypoperfusion due to anemia PAD prior L AKA COPD with chronic hypoxic respiratory failure Hx Diastolic CHF Hx seizure Chronic hyponatremia DMt2 HLD HTN GERD - Secondary Discharge Diagnosis Chronic Problems (Last Updated 11/05/18 @ 22:44 by Yumi Munroe) CHF (congestive heart failure) (Chronic) COPD (chronic obstructive pulmonary disease) (Chronic) Seizures (Chronic) Diabetes (Chronic) Hyponatremia (Chronic) Essential (primary) hypertension (Chronic) Hyperlipidemia (Chronic) Peripheral arterial occlusive disease (Chronic) Acute on chronic congestive heart failure (Chronic) Hospital Course and Treatment Imaging Results: RAD/HIP, UNI W/ Pelvis 2-3 Views IMPRESSION: There is displaced fracture of the left lower neck. RAD/Humerus min 2 Views IMPRESSION: There is a comminuted nondisplaced fracture of the proximal metaphysis of the humerus. There is an avulsion fracture at the base of the greater tuberosity. RAD/Chest 1 View (Portable) IMPRESSION: Degenerative changes, as described above. No demonstrated acute cardiopulmonary process. RAD/Hip Min 2 Views (Portable) IMPRESSION: Status post left hip arthroplasty with intact hardware in satisfactory alignment. Consults: Brannon Winters [facility] - [facility] Operations: None Procedures: None Summary of Care Provided: Hospital Course: The patient is a 69 year old F with extensive pmhx as above who presented to the ER with left hip and left arm pain after falling while transferring herself. She has a L AKA and was attempting to shift from one chair to the other. She landed on her left arm and hip. In the ER she appeared to have a left humeral fx and a left femoral neck fracture. Dr. Winters of Orthopedics was consulted. Pts arm was placed in a sling and swath. Ortho felt the patient would require surgery. Cardiology was consulted for surgical clearance given her hx. She was approved and underwent a successful left hemiarthroplasty. She had an elevated troponin after surgery however no symptoms of ischemia, so no acute intervention was pursued at this time. She also had a significant decline in hgb in surgery that may account for demand ischemia, and may have also led to PAOLO with hypoperfusion of the kidneys. She was given IV fluids and her kidneys improved. She was transfused with 2 units PRBC with good improvement in Hgb. She was temporarily taken off plavix and lovenox due to the anemia and mild thrombocytopenia. She will stay off plavix, and start asa 81 BID for DVT ppx and she will need close monitoring of her CBC at discharge. I spoke with Dr. Winters today who was agreeable to aspirin BID for DVT ppx. She remained significantly debilitated and SNF was recommended, she was agreeable. She was DCd to TCU in stable condition. She will need f/u with cardiology in 1-2 weeks, Dr. Winters via telemedicine in 12-14 days, and her PCP in 1-2 weeks. This patient was seen by Camron Mackey PA-C under the supervision of Dr. Jones. [] - Physical Exam Vitals/I&O's: Vital Signs Temp Pulse Resp BP Pulse Ox 98.4 F 90 18 124/55 H 93 06/01/19 07:00 06/01/19 08:05 06/01/19 09:30 06/01/19 07:00 06/01/19 08:05 Oxygen Flow Rate (L/min) 3 Oxygen Delivery Method Nasal Cannula Weight: 123 lb 7.342 oz Body Mass Index (BMI) 24.6 Finger Stick Blood Glucose 126 Intake and Output for Last 24 Hours 05/30/19 05/31/19 06/01/19 23:59 23:59 23:59 Intake Total 4048.34 / 4048.34 2681.66 / 2681.66 2400 / 2400 Output Total 600 / 800 2250 / 2250 1000 / 1000 Balance 3448.34 / 3248.34 431.66 / 431.66 1400 / 1400 General: Alert, Oriented x3, Cooperative HEENT: Atraumatic, PERRLA, EOMI, Normocephalic Neck: Supple, No JVD, Negative Carotid Bruits Lungs: Clear to auscultation, Normal air movement Cardiovascular: Regular rate, No murmurs Abdomen: Bowel Sounds Present, Soft, Non Tender Extremities: No edema, Capillary Refill Less than 3 Seconds Skin: No rashes, No breakdown Musculoskeletal: No Tenderness to Palpation of Joints or Extremities, - - L AKA Neurological: Cranial nerves II-XII grossly intact Psych/Mental Status: Normal Affect, Appropriate Microbiology Past 72 Hours 05/30/19 16:45 Urine Catheter - Myers Urine Culture - Preliminary Culture exhibits no growth. Laboratory Results 05/30/19 22:35: Diff Path Review Reviewed 05/31/19 11:35: Urine Creatinine 16.80 05/31/19 11:35: Ur Random Sodium 37 05/31/19 16:29: POC Glucose 100 05/31/19 21:35: POC Glucose 125 H 06/01/19 05:36: WBC 5.4, RBC 3.37 L, Hgb 10.1 L, Hct 29.9 L, MCV 88.7, MCH 30.0, MCHC 33.8, RDW Std Deviation 46.3 H, RDW Coeff of Reina 14.2, Plt Count 92 L, MPV 9.6, Immature Gran % (Auto) 0.600, Neut % (Auto) 69.0, Lymph % (Auto) 15.2 L, Billings % (Auto) 12.6 H, Eos % (Auto) 2.2, Baso % (Auto) 0.4, Absolute Neuts (auto) 3.7, Absolute Lymphs (auto) 0.82 L, Nucleated RBC % 0 06/01/19 05:36: Sodium 132 L, Potassium 4.5, Chloride 104, Carbon Dioxide 22.0, Anion Gap 6, BUN 22 H, Creatinine 1.58 H, Estim Creat Clear Calc 30.55, Est GFR (MDRD) Af Amer 42 L, Est GFR (MDRD) Non-Af 35 L, BUN/Creatinine Ratio 13.9, Glucose 101, Calcium 7.7 L 06/01/19 06:42: POC Glucose 110 06/01/19 11:05: POC Glucose 125 H Current Medications Albuterol Sulfate (Ventolin Aerosols) 2.5 mg INHALATION Q2H PRN PRN PRN Reason: DYSPNEA Last Admin: 06/01/19 05:30 Dose: 2.5 mg Documented by: Albuterol/Ipratropium (Duoneb) 3 ml INHALATION Q6HWA.RT [facility], [facility] Last Admin: 06/01/19 07:37 Dose: 3 ml Documented by: Amlodipine Besylate (Norvasc) 2.5 mg PO DAILY [facility], [facility] Last Admin: 06/01/19 09:54 Dose: 2.5 mg Documented by: Atorvastatin Calcium (Lipitor) 20 mg PO QHS [facility], [facility] Last Admin: 05/31/19 21:44 Dose: 20 mg Documented by: Budesonide (Pulmicort Aerosol) 0.5 mg INHALATION BID.RT [facility], [facility]1983 Last Admin: 06/01/19 07:37 Dose: 0.5 mg Documented by: Dextrose (D50w Syringe) 0 gm IV X1 PRN; Protocol PRN Reason: Hypoglycemia Gabapentin (Neurontin) 600 mg PO TIDCM [facility], [facility] Last Admin: 06/01/19 09:52 Dose: 600 mg Documented by: Glucagon () 1 mg IM .X1 PRN PRN Reason: Hypoglycemia Hydroxyzine Pamoate (Vistaril Pamoate Capsule) 25 mg PO TID PRN PRN PRN Reason: ANXIETY Last Admin: 05/30/19 14:20 Dose: 25 mg Documented by: Sodium Chloride () 1,000 mls @ 15 mls/hr IV .Q48H [facility], [facility] Last Admin: 05/31/19 17:16 Dose: Not Given Documented by: Sodium Chloride () 1,000 mls @ 100 mls/hr IV .Q10H [facility] Last Infusion: 06/01/19 11:44 Dose: Infused Documented by: Insulin Human Lispro (Humalog Kwikpen (Bkc)) 0 unit SC ACHS [facility], [facility]; Protocol Last Admin: 06/01/19 11:24 Dose: Not Given Documented by: Melatonin (Melatonin) 10 mg PO QHS [facility] Last Admin: 05/31/19 21:44 Dose: 10 mg Documented by: Metoprolol Tartrate (Lopressor (Beta Yany)) 50 mg PO TID [facility] Last Admin: 06/01/19 05:29 Dose: 50 mg Documented by: Mirtazapine (Remeron) 15 mg PO QHS [facility] Last Admin: 05/31/19 21:46 Dose: 15 mg Documented by: Morphine Sulfate () 4 mg IV Q3H PRN PRN PRN Reason: Pain Score 6-10/10 Last Admin: 06/01/19 08:44 Dose: 4 mg Documented by: Ondansetron HCl (Zofran) 4 mg IV Q8H PRN PRN PRN Reason: NAUSEA/VOMITING Last Admin: 05/31/19 06:52 Dose: 4 mg Documented by: Oxycodone HCl (Oxyir) 10 mg PO Q4H PRN PRN PRN Reason: Pain Score 4-5/10 Last Admin: 06/01/19 05:28 Dose: 10 mg Documented by: Pantoprazole Sodium (Protonix) 40 mg PO DAILY [facility] Last Admin: 06/01/19 09:52 Dose: 40 mg Documented by: Polyethylene Glycol (Miralax) 17 gm PO BID [facility] Last Admin: 06/01/19 09:52 Dose: 17 gm Documented by: Sodium Chloride (Sodium Chloride) 1 [facility] Last Admin: 06/01/19 09:52 Dose: 1 gm Documented by: Sodium Chloride () 10 - 40 ml IV UD PRN PRN Reason: SALINE FLUSH Last Admin: 06/01/19 08:44 Dose: 10 ml Documented by: Tamsulosin HCl (Flomax) 0.4 mg PO DAILY@1730 [facility] Last Admin: 05/31/19 16:23 Dose: 0.4 mg Documented by: Discharge Diet: Low fat/ Low Cholesterol, 2000 mg Sodium Diet Discharge Activity: Return to Normal Activity Home Medications: Medications to take at Discharge Albuterol IH (ProAir) [Proair Hfa] 2 puff INHALATION Q6H PRN PRN 04/05/17 Gabapentin [Neurontin] 600 mg PO TIDCM 04/05/17 Ipratropium/Albuterol Sulfate [Duoneb] 3 ml INHALATION Q6HWA.RT 04/05/17 Sodium Chloride 1 gm PO DAILY 04/05/17 Budesonide Aerosol [Pulmicort Respules] 0.5 mg INHALATION BID 08/21/17 Multivitamins,Ther W-Minerals [Multivitamin With Minerals (BKC)] 1 tab PO DAILYCM 08/31/17 Pantoprazole Sodium 40 mg PO DAILY #30 tablet. 09/17/17 atorvastatin 20 mg tablet 20 mg PO QDAY #90 tab 10/18/17 metoprolol tartrate 50 mg tablet 50 mg PO TID tab 10/18/17 Amlodipine [Norvasc] 2.5 mg PO DAILY 05/29/19 Melatonin 10 mg PO QHS 05/29/19 Mirtazapine [Remeron] 15 mg PO QHS 05/29/19 Albuterol Aerosols [Ventolin Aerosols] 2.5 mg INHALATION Q2H PRN PRN vial.neb. 06/01/19 Aspirin [Aspirin, Baby] 81 mg PO BID 06/01/19 Polyethylene Glycol 3350 [Miralax] 17 gm PO DAILY 06/01/19 Tamsulosin HCl [Flomax] 0.4 mg PO DAILY@1730 06/01/19 hydrOXYzine pamoate capsule [Vistaril pamoate capsule] 25 mg PO TID PRN PRN cap 06/01/19 Primary Care Physician: Irasema Jonas MD [Primary Care Provider] - Please follow up with your Primary Care Physician in: 1-2 weeks Please Follow Up With: Abhishek Winters MD - Tele health visit When: 12-14 days Disposition: [facility] facility Minutes spent on discharge:: 35 Patient Condition:: Stable Medical Necessity - Tobacco Use Smoking Status: Current every day smoker Tobacco Use: Cigarettes Meaningful Use Info Meaningful Use Diagnoses (Choose all that apply): None applicable <KarenDrea Adia - Last Filed: 06/01/19 16:42> Discharge Date and Diagnosis - Secondary Discharge Diagnosis Chronic Problems (Last Updated 11/05/18 @ 22:44 by Yumi Munroe) CHF (congestive heart failure) (Chronic) COPD (chronic obstructive pulmonary disease) (Chronic) Seizures (Chronic) Diabetes (Chronic) Hyponatremia (Chronic) Essential (primary) hypertension (Chronic) Hyperlipidemia (Chronic) Peripheral arterial occlusive disease (Chronic) Acute on chronic congestive heart failure (Chronic) Hospital Course and Treatment Summary of Care Provided: Patient seen by Camron Mackey PA-C under my supervision The patient is a 69 year old F with an extensive past medical history as above was admitted through the ED with complaint of left hip and left arm pain after mechanical fall. She was noted to have a left humeral fracture and left femoral neck fracture. Imaging. Orthopedics was consulted and she had conservative management of the left humeral fracture with placement in a sling and swath. She had a left hemiarthroplasty on 05/29/2019 after she had clearance by cardiology. She had elevated troponins after surgery but no evidence of ischemia and EKG showed no acute ST changes. It was thought to be also due to demand ischemia she had a drop in hemoglobin after surgery. She also had PAOLO after surgery and was transfused 2 units of packed red blood cells as well as hydrated with IV fluids. Hemoglobin was 10.1 on day of discharge and creatinine was 1.58. She was put on aspirin 81 mg twice daily for DVT prophylaxis and she was to stay off her Plavix in the interim. Patient was discharged to [facility] on 06/01/2019. She is to follow-up with her primary care doctor in 1 to 2 weeks and to follow-up with cardiology and orthopedic surgery. She is also to keep well-hydrated with fluid and have a follow-up BMP in 2 to 3 days to follow-up on her creatinine level. Patient seen and examined prior to discharge. She complained of feeling uncomfortable but pain was fairly well controlled. Review of symptoms otherwise negative. Labs and vitals reviewed. Medication reviewed and reconciled. o/e: Vital Signs Temp Pulse Resp BP Pulse Ox 98.6 F 110 H 18 138/63 H 95 06/01/19 13:42 06/01/19 13:42 06/01/19 13:42 06/01/19 13:42 06/01/19 13:42 [] General: Alert, Oriented x3, Cooperative HEENT: Atraumatic, PERRLA, EOMI, Normocephalic Neck: Supple, No JVD, Negative Carotid Bruits Lungs: Clear to auscultation, Normal air movement Cardiovascular: Regular rate, No murmurs Abdomen: Bowel Sounds Present, Soft, Non Tender Extremities: No edema, Capillary Refill Less than 3 Seconds Skin: No rashes, No breakdown Musculoskeletal: No Tenderness to Palpation of Joints or Extremities; LUE in sling Neurological: Cranial nerves II-XII grossly intact Psych/Mental Status: Normal Affect, Appropriate, Alert and oriented to time, place, person, mood and affect Plan is for discharge to senior living today. Rest as per Camron Mackey PA-C's notes which I have reviewed and endorsed. - Physical Exam Vitals/I&O's: Vital Signs Temp Pulse Resp BP Pulse Ox 98.6 F 110 H 18 138/63 H 95 06/01/19 13:42 06/01/19 13:42 06/01/19 13:42 06/01/19 13:42 06/01/19 13:42 Oxygen Flow Rate (L/min) 3 Oxygen Delivery Method Nasal Cannula Weight: 123 lb 7.342 oz Body Mass Index (BMI) 24.6 Finger Stick Blood Glucose 126 Intake and Output for Last 24 Hours 05/30/19 05/31/19 06/01/19 23:59 23:59 23:59 Intake Total 4048.34 / 4048.34 2681.66 / 2681.66 2400 / 2400 Output Total 600 / 800 2250 / 2250 1650 / 1650 Balance 3448.34 / 3248.34 431.66 / 431.66 750 / 750 Microbiology Past 72 Hours 05/30/19 16:45 Urine Catheter - Myers Urine Culture - Final Culture exhibits no growth. Laboratory Results 05/30/19 22:35: Diff Path Review Reviewed 05/31/19 16:29: POC Glucose 100 05/31/19 21:35: POC Glucose 125 H 06/01/19 05:36: WBC 5.4, RBC 3.37 L, Hgb 10.1 L, Hct 29.9 L, MCV 88.7, MCH 30.0, MCHC 33.8, RDW Std Deviation 46.3 H, RDW Coeff of Reina 14.2, Plt Count 92 L, MPV 9.6, Immature Gran % (Auto) 0.600, Neut % (Auto) 69.0, Lymph % (Auto) 15.2 L, Bill[place] % (Auto) 12.6 H, Eos % (Auto) 2.2, Baso % (Auto) 0.4, Absolute Neuts (auto) 3.7, Absolute Lymphs (auto) 0.82 L, Nucleated RBC % 0 06/01/19 05:36: Sodium 132 L, Potassium 4.5, Chloride 104, Carbon Dioxide 22.0, Anion Gap 6, BUN 22 H, Creatinine 1.58 H, Estim Creat Clear Calc 30.55, Est GFR (MDRD) Af Amer 42 L, Est GFR (MDRD) Non-Af 35 L, BUN/Creatinine Ratio 13.9, Glucose 101, Calcium 7.7 L 06/01/19 06:42: POC Glucose 110 06/01/19 11:05: POC Glucose 125 H Inpatient E&M: 17218 Disch Hosp
--- NOTE | 2019-06-01 12:48 | CASEMGMT ---
YASMIN received a voice mail from Daniel Harris at [facility]. SW called her back and left her a voice mail letting her know patient will be going to [facility] TCU today. Carolyn PIÑA
[2019-06-01] MEDS: Ondansetron 4 MG/2 ML Vial IV (12:52)
== END 2019-06-01 14:15 | disposition skilled nursing facility (03) | DRG 469 ==
LOC: ED 11:27 → PCU 12:00
PROVIDERS: Anesthesiology; Family Medicine; Orthopaedic Surgery; Physician Assistant; Admitting Provider Internal Medicine; Emergency Provider Emergency Medicine; PCP Internal Medicine; Visit Provider Student in an Organized Health Care Education/Training Program
PROC: 0SRS019 Replacement of Left Hip Joint, Femoral Surface with Metal Synthetic Substitute, Cemented, Open Approach (ICD-10-PCS; CPT 27125; principal; 2019-05-29 14:40)
DX: S72.002A Fracture of unspecified part of neck of left femur, initial encounter for closed fracture (principal); I50.33 Acute on chronic diastolic (congestive) heart failure; I21.A1 Myocardial infarction type 2; S42.295A Other nondisplaced fracture of upper end of left humerus, initial encounter for closed fracture; N17.9 Acute kidney failure, unspecified; J96.11 Chronic respiratory failure with hypoxia; E87.1 Hypo-osmolality and hyponatremia; D62 Acute posthemorrhagic anemia; I11.0 Hypertensive heart disease with heart failure; I44.0 Atrioventricular block, first degree; W18.39XA Other fall on same level, initial encounter; Y93.89 Activity, other specified; Y92.009 Unspecified place in unspecified non-institutional (private) residence as the place of occurrence of the external cause; D69.6 Thrombocytopenia, unspecified; J44.9 Chronic obstructive pulmonary disease, unspecified; E78.5 Hyperlipidemia, unspecified; E11.51 Type 2 diabetes mellitus with diabetic peripheral angiopathy without gangrene; K21.9 Gastro-esophageal reflux disease without esophagitis; G40.909 Epilepsy, unspecified, not intractable, without status epilepticus; F17.210 Nicotine dependence, cigarettes, uncomplicated; Z89.612 Acquired absence of left leg above knee; Z79.02 Long term (current) use of antithrombotics/antiplatelets; Z99.81 Dependence on supplemental oxygen; Z79.899 Other long term (current) drug therapy; Z86.73 Personal history of transient ischemic attack (TIA), and cerebral infarction without residual deficits
CPT/HCPCS: 36415; 36600; 71045; 73060; 73502; 80048; 81001; 82570; 82803; 82962; 83036; 83880; 84300; 84484; 85025; 85610; 85730; 86850; 86900; 86901; 86920; 86922; 87086; 88305; 88311; 93005; 94002; 94003; 94640; 96374; 97110; 97162; 97167; 99251; 99285; C1776; J7030; J7040; J7120; P9016; A4216; G0463; J2310; J2405

== ENCOUNTER 2019-06-01 14:30 | Inpatient (IN) | payer MEDICARE, MEDICAID, SELFPAY ==
[2019-05-29 13:54] VITALS: BMI 24.6
[2019-06-01 15:00] VITALS: BP 135/85; PULSE 63; RESP 22; TEMP 37.5; O2SAT 95; BMI 21.2
[2019-06-01 15:38] VITALS: BP 135/85; PULSE 63; RESP 22; TEMP 37.5; O2SAT 95
--- NOTE | 2019-06-01 17:27 | HP.PCM_ITS ---
Problem List (1) Debility Status: Acute (2) Elevated troponin Status: Acute (3) Acute kidney injury Status: Acute (4) Chronic diastolic (congestive) heart failure Status: Chronic (5) Seizure disorder Status: Chronic (6) Hypertension Status: Chronic (7) Diabetic polyneuropathy Status: Chronic (8) GERD (gastroesophageal reflux disease) Status: Chronic (9) Appetite loss Status: Chronic (10) COPD (chronic obstructive pulmonary disease) Status: Chronic (11) Diabetes Status: Chronic (12) Closed left hip fracture Status: Acute (13) Left humeral fracture Status: Acute (14) Hyperlipidemia Status: Chronic (15) Peripheral arterial occlusive disease Status: Chronic History of Present Illness Date of Admission: 06/01/19 Chief Complaint: Here for rehabilitation, strengthening, prior to discharge home with family. The patient is a 69 year old Female with below past medical history presented to [facility] Emergency Department 05/29/2019 with fall. 05/29/2019 X-ray pelvis, left hip showed left hip fracture. 05/29/2019 X-ray left humerus showed left humerus fracture. 05/29/2019 Chest X-ray negative. 05/29/2019 EKG sinus rhythm, rate 69, 1st degree AV block. Fall at home, status post left above knee amputation, trying to transfer and fell. Landed on left stump, left shoulder. Left hip, Left shoulder pain. [place], Morphine given for pain. 05/29/2019 Admit to Hospital. Cleared for surgery. 05/29/2019 Dr. Abhishek Winters performed left hip cemented hemiarthroplasty. Sling and swath for left humerus fracture. Elevated troponin secondary demand ischemia from postoperative anemia. Transfused 2 units PRBC for postoperative anemia. Acute kidney injury treated with IV fluids. Aspirin 81MG twice daily for DVT prophylaxis, Plavix on hold. 06/01/2019 Admit to TCU with debility, here for rehabilitation, strengthening, prior to discharge home with family. Past Medical History Past Medical History (Chronic Problems): Chronic Problems (Last Updated 11/05/18 @ 22:44 by Yumi Munroe) CHF (congestive heart failure) (Chronic) COPD (chronic obstructive pulmonary disease) (Chronic) Seizures (Chronic) Diabetes (Chronic) Hyponatremia (Chronic) Chronic diastolic (congestive) heart failure (Chronic) Seizure disorder (Chronic) Hypertension (Chronic) Diabetic polyneuropathy (Chronic) GERD (gastroesophageal reflux disease) (Chronic) Appetite loss (Chronic) Essential (primary) hypertension (Chronic) Hyperlipidemia (Chronic) Peripheral arterial occlusive disease (Chronic) Acute on chronic congestive heart failure (Chronic) Medical History: Medical History (Last Updated 11/05/18 @ 22:44 by Yumi Munroe) Essential (primary) hypertension (Chronic) I10 Hyperlipidemia (Chronic) E78.5 Peripheral arterial occlusive disease (Chronic) I77.9 Acute on chronic congestive heart failure (Chronic) I50.9 Atherosclerosis of [place] artery of left lower extremity I70.202 COPD (chronic obstructive pulmonary disease) J44.9 Cerebrovascular disease I67.9 Status post acute ischemic stroke no residual deficit Moderate carotid disease Bilateral carotid endarterectomy Chronic hypoxemic respiratory failure J96.11 Chronic ulcer of left foot with fat layer exposed L97.522 Hammer toe of left foot M20.42 Insomnia G47.00 Neuropathic pain M79.2 Osteoporosis M81.0 Other specified peripheral vascular diseases I73.89 Seizure disorder G40.909 Type 2 diabetes mellitus with diabetic polyneuropathy E11.42 Vertebral compression fracture M48.50XA Abdominal pain (Resolved) R10.9 Foot ulcer, left (Resolved) L97.529 Fracture of fifth toe, left, closed (Resolved) S92.502A Shortness of breath (Resolved) R06.02 Tobacco user Z72.0 Allergies levofloxacin [From Levaquin] Allergy (Verified 05/29/19 10:10) Other Red streak up her arm and itiching pregabalin [From Lyrica] Allergy (Verified 05/29/19 10:10) Other Sulfa (Sulfonamide Antibiotics) Allergy (Verified 05/29/19 10:10) Anaphylaxis duloxetine [From Cymbalta] Adverse Reaction (Verified 05/29/19 10:10) Vomiting sertraline HCl [From Zoloft] Adverse Reaction (Verified 05/29/19 10:10) MAKES ME CRAZY makes me crazy Home Medications: Ambulatory Orders Medication Instructions Recorded Albuterol IH (ProAir) [Proair Hfa] 2 puff INHALATION Q6H PRN PRN 04/05/17 Gabapentin [Neurontin] 600 mg PO TIDCM 04/05/17 Ipratropium/Albuterol Sulfate 3 ml INHALATION Q6HWA.RT 04/05/17 [Duoneb] Sodium Chloride 1 gm PO DAILY 04/05/17 Budesonide Aerosol [Pulmicort 0.5 mg INHALATION BID 08/21/17 Respules] Multivitamins,Ther W-Minerals 1 tab PO DAILYCM 08/31/17 [Multivitamin With Minerals (BKC)] Pantoprazole Sodium 40 mg PO DAILY #30 tablet. 09/17/17 atorvastatin 20 mg tablet 20 mg PO QDAY #90 tab 10/18/17 metoprolol tartrate 50 mg tablet 50 mg PO TID tab 10/18/17 Amlodipine [Norvasc] 2.5 mg PO DAILY 05/29/19 Melatonin 10 mg PO QHS 05/29/19 Mirtazapine [Remeron] 15 mg PO QHS 05/29/19 Albuterol Aerosols [Ventolin 2.5 mg INHALATION Q2H PRN PRN 06/01/19 Aerosols] vial.neb. Aspirin [Aspirin, Baby] 81 mg PO BID 06/01/19 Polyethylene Glycol 3350 [Miralax] 17 gm PO DAILY 06/01/19 Tamsulosin HCl [Flomax] 0.4 mg PO DAILY@1730 06/01/19 hydrOXYzine pamoate capsule 25 mg PO TID PRN PRN cap 06/01/19 [Vistaril pamoate capsule] Surgical History: Surgical History (Last Updated 11/05/18 @ 22:43 by Yumi Munroe) History of above knee amputation Onset Date: 08/28/17 Z89.619 left History of appendectomy Z98.890, Z90.49 History of bilateral carotid endarterectomy Z98.890 History of hysterectomy Z98.890, Z90.710 abdominal aorta endovascular stent graft bilateral femoral endarterectomy bilateral iliac stenting Surgical History: appendectomy, hysterectomy, total hip arthroplasty - Left cemented hemiarthroplasty., - - Bilateral carotid endarterectomy,pad surgery with stents. Appears some type of either mesenteric stent or mesenteric bypass or aortic surgery Left femoral to distal bypass Left above knee amputation, Bilateral carotid endarterectomy. 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 history Lives: With Family Smoking Status: Current every day smoker Tobacco Use: Cigarettes Alcohol: None Drugs: None - *Family History Paternal Family History: Family History (Last Reviewed 05/29/19 @ 13:01 by GENEVA Kirby) Mother CVA (cerebral vascular accident) History Items: Heart Disease Maternal Family History: Family History (Last Reviewed 05/29/19 @ 13:01 by GENEVA Kirby) Mother CVA (cerebral vascular accident) History Items: No pertinent history Review of Systems Constitutional: Denies: Chills, Fever, Weight Change HEENT: Denies: Head Aches, Sinus Congestion, Sinus Drainage Cardiovascular: Denies: Chest Pain, Palpitations Respiratory: Denies: Cough, Shortness of breath at rest, Sputum production Gastrointestinal: Denies: Abdominal Pain, Nausea, Vomiting Genitourinary: Denies: Dysuria Musculoskeletal: Denies: Joint Pain, Joint Tenderness Skin: Denies: Rash, Wounds Neurological: Denies: Numbness, Tingling, Focal weakness Psychiatric: Denies: Anxiety, Depression, Homicidal Ideations, Suicidal Ideations Hematologic/ Lymphatic: Denies: Easy Bruising, Easy Bleeding VTE Information - Inpt Only VTE Present on Admission: No VTE Mechan Device Prophylaxis: Knee High JER Hose VTE Pharm Prophylaxis ordered?: Yes Patient Problems: Active and Suspected Problems (Last Updated 11/05/18 @ 22:44 by Yumi Munroe) Debility (Acute) Elevated troponin (Acute) Acute kidney injury (Acute) - Physical Exam Vitals/I&O's: Vital Signs Temp Pulse Resp BP Pulse Ox 99.5 F H 63 22 H 135/85 H 95 06/01/19 15:38 06/01/19 15:38 06/01/19 15:38 06/01/19 15:38 06/01/19 15:38 Oxygen Flow Rate (L/min) 3 Oxygen Delivery Method Nasal Cannula Weight: 56.245 kg Body Mass Index (BMI) 21.2 Finger Stick Blood Glucose 126 General: Alert, Oriented x3, Cooperative HEENT: Atraumatic, PERRLA, EOMI, Normocephalic Neck: Supple, No JVD, Negative Carotid Bruits Lungs: Clear to auscultation, Normal air movement Cardiovascular: Regular rate, No murmurs Abdomen: Bowel Sounds Present, Soft, Non Tender, - - Indwelling curran catheter. Extremities: No edema, Capillary Refill Less than 3 Seconds, - - Left above knee amputation Skin: No rashes, No breakdown, Incision - Left hip clean, dry, intact. Musculoskeletal: No Tenderness to Palpation of Joints or Extremities Neurological: Cranial nerves II-XII grossly intact Psych/Mental Status: Normal Affect, Appropriate Assessment/Plan All Active Problems (Last Updated 11/05/18 @ 22:44 by Yumi Munroe) Closed left hip fracture (Acute) Left humeral fracture (Acute) Anemia (Acute) Thrombocytopenia (Acute) Debility (Acute) Elevated troponin (Acute) Acute kidney injury (Acute) Abdominal pain (Resolved) Foot ulcer, left (Resolved) Fracture of fifth toe, left, closed (Resolved) Hyponatremia (Resolved) Shortness of breath (Resolved) Viral syndrome (Resolved) Cellulitis of foot (Ruled-out) 69 year old female with below past medical history hospitalized for left hip fracture, left humerus fracture, underwent left hip cemented hemiarthroplasty with Dr. Abhishek Winters 05/29/2019, complicated by postoperative anemia, elevated troponin, acute kidney injury, admitted to TCU with debility, here for rehabilitation, strengthening, prior to discharge home with family. * Debility - PT/OT. * Pain - Tylenol 1000MG Q6H PRN pain (1-3), Oxycodone 5MG Q4H PRN pain (4-10). * Bowel - Miralax 17GM daily, Senna/colace 2 tablets BID, Dulcolax 10MG daily PRN. * Adult immunization - Administer Prevnar 13, Pneumovax 23, Fluzone as appropriate. * DVT prophylaxis - Aspirin 81MG twice daily. * COPD - Pulmicort 0.5MG BID, Duoneb 3ML [id number], Albuterol 2.5MG Q2H PRN, Proair MDI 2 puffs Q6H PRN. * Neuropathic pain - Gabapentin 600MG TID. * Hyponatremia - Sodium Chloride 1GM daily. * Nutrition - MVI daily. * GERD - Pantoprazole 40MG daily. * Hyperlipidemia - Atorvastatin 20MG QHS. * Hypertension - Metoprolol 50MG TID, Amlodipine 2.5MG daily. * Insomnia - Melatonin 10MG QHS. * Appetite loss - Mirtazapine 15MG QHS. * Urinary retention - Discontinue indwelling curran catheter per protocol, voiding trials, Tamsulosin 0.4MG daily. * Anxiety - Hydroxyzine 25MG TID PRN.
[2019-06-01] MEDS: Senna/Docusate Sodium 1 Tablet 2 TABLET PO (18:27)
[2019-06-01] MEDS: oxyCODONE 5 MG Tablet PO (18:30)
[2019-06-01 21:46] LABS: Bedside Glucose 105 mg/dL (70-110)
[2019-06-01 22:55] VITALS: BP 131/66; PULSE 109
[2019-06-01] MEDS: Metoprolol Tartrate 50 MG Tablet PO (22:55)
[2019-06-01] MEDS: MELATONIN 10 MG TABLET PO (22:56)
[2019-06-01] MEDS: Atorvastatin Calcium 20 MG Tablet PO (22:56)
[2019-06-01] MEDS: Mirtazapine 15 MG Tablet PO (22:56)
[2019-06-01] MEDS: Aspirin 81 MG TAB.CHEW PO (23:00)
[2019-06-01] MEDS: Tamsulosin HCl 0.4 MG Capsule PO (23:00)
[2019-06-01] MEDS: Gabapentin 600 MG Tablet PO (23:00)
[2019-06-01 23:22] VITALS: PULSE 97; RESP 20; O2SAT 87
[2019-06-01] MEDS: Ipratropium/Albuterol Sulfate 3 ML AMPUL.NEB INHALATION (23:22)
[2019-06-01] MEDS: Budesonide Respules 0.5 MG/2 ML AMPUL.NEB. INHALATION (23:22)
[2019-06-02] VITALS (8 sets, daily range): BP systolic 131–152; BP diastolic 72–87; PULSE 88–104; RESP 18–20; TEMP 36; O2SAT 93–94
[2019-06-02] MEDS: Polyethylene Glycol 3350 17 GM PACKET PO (06:27)
[2019-06-02] MEDS: SODIUM CHLORIDE 1 GM TABLET PO (06:27)
[2019-06-02] MEDS: Metoprolol Tartrate 50 MG Tablet PO ×3 (06:27→20:02)
[2019-06-02] MEDS: Senna/Docusate Sodium 1 Tablet 2 TABLET PO ×2 (06:27→18:11)
[2019-06-02] MEDS: amLODIPine 2.5 MG Tablet PO (06:27)
[2019-06-02] MEDS: Pantoprazole Sodium 40 MG Tablet PO (06:27)
[2019-06-02 06:30] LABS: Absolute Lymphocyte Count 1.02 X10^3/uL (0.83-4.51); Absolute Neutrophil Count 3.7 X10^3/uL (2.0-7.7); Basophil# 0.02 X10^3/uL; Basophil% 0.3 % (0-1); Eosinophil# 0.18 X10^3/uL; Eosinophils% 3.1 % (0-5); Hematocrit 31.8 % (37-47); Hemoglobin 10.1 g/dL (12.0-15.0); Lymphocyte # 1.02 X10^3/ul (4.0); Lymphocyte % 17.4 % (19-41); Mean Corp Hgb Conc 31.8 g/dL (32-36); Mean Corpuscular Volume 94.4 fL (81-99); Monocyte# 0.95 X10^3/uL; Monocyte% 16.2 % (0-10); NRBC Flagged by Analyzer 0 % (0-5); Neutrophil # 3.67 X10^3/uL (2.7-7.7); Neutrophil % 62.5 % (47-70); Platelet Count 103 K/mm3 (150-450); RBC Distribution Width CV 13.8 % (11.6-14.6); RBC Distribution Width SD 47.8 fl (35.1-43.9); Red Blood Count 3.37 M/mm3 (4.2-5.4); White Blood Count 5.9 K/mm3 (4.4-11.0)
[2019-06-02 06:31] LABS: Bedside Glucose 108 mg/dL (70-110)
[2019-06-02 06:33] LABS: Anion Gap 5 (5-15); BUN 18 mg/dL (7-18); BUN/Creat Ratio 14.8 RATIO (10-20); Calcium,Total 8.3 mg/dL (8.5-10.1); Chloride 105 mmol/L (98-107); Creatinine, Serum 1.22 mg/dL (0.55-1.02); EST Glomerular Filtration Rate 47 mL/min (>60); Est Glom Filt Rate - Afr Amer 57 mL/min (>60); Estimated Creatinine Clearance 38.64 ml/min; Glucose 94 mg/dL (74-106); Potassium 4.2 mmol/L (3.5-5.1); Sodium Level 131 mmol/L (136-145)
[2019-06-02] MEDS: Nystatin Powder 15gm Bottle 1 APPLIC TOPICAL ×2 (06:35→20:03)
[2019-06-02] MEDS: oxyCODONE 5 MG Tablet PO (06:41)
[2019-06-02] MEDS: Ipratropium/Albuterol Sulfate 3 ML AMPUL.NEB INHALATION ×3 (06:55→19:43)
[2019-06-02] MEDS: Budesonide Respules 0.5 MG/2 ML AMPUL.NEB. INHALATION ×2 (06:55→19:43)
[2019-06-02] MEDS: Acetaminophen 500 MG Tablet 1000 MG PO (08:40)
--- NOTE | 2019-06-02 09:11 | NURSING ---
pt does not want 0800 meds at this time d/t upset stomach but will take her tylenol for pain. dr Huber was updated on pt requesting stronger dose of oxyir cause that was what she was taking on acute side. Dr Huber changed dose.
[2019-06-02] MEDS: oxyCODONE 5 MG Tablet 10 MG PO ×3 (10:44→20:00)
[2019-06-02] MEDS: Multivitamins,Ther W-Minerals Tablet 1 TABLET PO (10:45)
[2019-06-02] MEDS: Aspirin 81 MG TAB.CHEW PO ×2 (10:45→18:09)
[2019-06-02] MEDS: Gabapentin 600 MG Tablet PO ×3 (10:45→18:10)
[2019-06-02] MEDS: Tuberculin,Purif.prot.deriv. 50 TU/ML Vial 5 ML ID (10:46)
--- NOTE | 2019-06-02 10:57 | CASEMGMT ---
Social Work Discussed code status with pt. Pt confirmed wishes are to be a full code. MOLST form completed. Placed in chart. Mihaela Parson, DIRECTOR OF [employer]
--- NOTE | 2019-06-02 11:33 | NURSING ---
pt refusing SSE that Dr Huber ordered for constipation. Pt had BM with therapy assisting her, LG nonformed stool. no your not giving me that, I had a BM this AM
--- NOTE | 2019-06-02 13:10 | PCM.PN.RX ---
<Marcelino Reaves - Last Filed: 06/02/19 13:10> Progress Note - Pharmacy Subjective: [] TCU Admission Objective: Allergies levofloxacin [From Levaquin] Allergy (Verified 05/29/19 10:10) Other Red streak up her arm and itiching pregabalin [From Lyrica] Allergy (Verified 05/29/19 10:10) Other Sulfa (Sulfonamide Antibiotics) Allergy (Verified 05/29/19 10:10) Anaphylaxis duloxetine [From Cymbalta] Adverse Reaction (Verified 05/29/19 10:10) Vomiting sertraline HCl [From Zoloft] Adverse Reaction (Verified 05/29/19 10:10) MAKES ME CRAZY makes me crazy Current Medications Generic Name Dose Route Start Last Admin Trade Name Freq PRN Reason Stop Dose Admin Acetaminophen 1,000 mg 06/01/19 17:48 06/02/19 08:40 Tylenol PO 1,000 mg Q6H PRN PRN Administration Pain Score 1-3/10 Albuterol Sulfate 2.5 mg 06/01/19 21:48 Ventolin Aerosols INHALATION Q2H PRN PRN DYSPNEA Albuterol Sulfate 2 puff 06/01/19 21:48 Ventolin Hfa (Sp) INHALATION Q6H PRN PRN SOB &/OR WHEEZING Albuterol/Ipratropium 3 ml 06/01/19 23:00 06/02/19 06:55 Duoneb INHALATION 3 ml Q6HWA.RT WISAM Administration Amlodipine Besylate 2.5 mg 06/02/19 06:00 06/02/19 06:27 Norvasc PO 2.5 mg DAILY WISAM Administration Aspirin 81 mg 06/02/19 08:00 06/02/19 10:45 Aspirin, Baby PO 81 mg BIDCM WISAM Administration Atorvastatin Calcium 20 mg 06/01/19 22:00 06/01/19 22:56 Lipitor PO 20 mg QHS WISAM Administration Bisacodyl 10 mg 06/01/19 19:33 Dulcolax PO DAILY PRN PRN Constipation Budesonide 0.5 mg 06/01/19 23:15 06/02/19 06:55 Pulmicort Aerosol INHALATION 0.5 mg BID.RT WISAM Administration Gabapentin 600 mg 06/02/19 07:45 06/02/19 12:35 Neurontin PO 600 mg TIDCM WISAM Administration Hydroxyzine Pamoate 25 mg 06/01/19 21:48 Vistaril Pamoate Capsule PO TID PRN PRN ANXIETY Melatonin 10 mg 06/01/19 22:00 06/01/19 22:56 Melatonin PO 10 mg QHS WISAM Administration Metoprolol Tartrate 50 mg 06/01/19 22:00 06/02/19 06:27 Lopressor (Beta Yany) PO 50 mg TID WISAM Administration Mirtazapine 15 mg 06/01/19 22:00 06/01/19 22:56 Remeron PO 15 mg QHS WISAM Administration Multivitamins/Minerals 1 tablet 06/02/19 08:00 06/02/19 10:45 Multivitamin With Minerals (Bkc) PO 1 tablet DAILYCM WISAM Administration Nutritional Formula (Lactose Free) 120 ml 06/02/19 12:00 06/02/19 12:34 Ensure Enlive PO 120 ml 4X/DAY WISAM Administration Nystatin 1 applic 06/02/19 06:00 06/02/19 06:35 Mycostatin Powder TOPICAL 1 applicatio BID WISAM Administration Protocol Oxycodone HCl 10 mg 06/02/19 08:07 06/02/19 10:44 Oxyir PO 10 mg Q4H PRN PRN Administration Pain Score 4-10/10 Pantoprazole Sodium 40 mg 06/02/19 06:00 06/02/19 06:27 Protonix PO 40 mg DAILY WISAM Administration Polyethylene Glycol 17 gm 06/02/19 06:00 06/02/19 06:27 Miralax PO 17 gm BID WISAM Administration Senna/Docusate Sodium 2 tablet 06/01/19 18:00 06/02/19 06:27 Senokot-S, Libra-Colace PO 2 tablet BID WISAM Administration Sodium Chloride 1 gm 06/02/19 06:00 06/02/19 06:27 Sodium Chloride PO 1 gm DAILY WISAM Administration Tamsulosin HCl 0.4 mg 06/02/19 17:30 06/01/19 23:00 Flomax PO 0.4 mg DAILY@1730 WISAM Administration Tuberculin PPD 5 tu 06/09/19 10:00 Tubersol, Aplisol, Ppd ID 06/09/19 10:01 X1 ONE Problem List (Last Updated 11/05/18 @ 22:44 by Yumi Ball Debility (Acute) Elevated troponin (Acute) Acute kidney injury (Acute) Chronic diastolic (congestive) heart failure (Chronic) Seizure disorder (Chronic) Hypertension (Chronic) Diabetic polyneuropathy (Chronic) GERD (gastroesophageal reflux disease) (Chronic) Appetite loss (Chronic) Vital Signs Temp Pulse Resp BP Pulse Ox 99.5 F H 101 H 20 H 149/77 H 94 06/01/19 15:38 06/02/19 06:55 06/02/19 06:55 06/02/19 06:27 06/02/19 06:55 Oxygen Flow Rate (L/min) 2.5 Oxygen Delivery Method Nasal Cannula Weight: 56.245 kg Body Mass Index (BMI) 21.2 Finger Stick Blood Glucose 126 Sodium 131 mmol/L (136-145) L 06/02/19 06:06 Potassium 4.2 mmol/L (3.5-5.1) 06/02/19 06:06 Chloride 105 mmol/L (98-107) 06/02/19 06:06 Carbon Dioxide 21.0 mmol/L (21.0-32.0) 06/02/19 06:06 Anion Gap 5 (5-15) 06/02/19 06:06 BUN 18 mg/dL (7-18) 06/02/19 06:06 Creatinine 1.22 mg/dL (0.55-1.02) H 06/02/19 06:06 Est GFR (MDRD) Af Amer 57 mL/min (>60) L 06/02/19 06:06 Est GFR (MDRD) Non-Af 47 mL/min (>60) L 06/02/19 06:06 BUN/Creatinine Ratio 14.8 RATIO (10-20) 06/02/19 06:06 Glucose 94 mg/dL (74-106) 06/02/19 06:06 Assessment/Plan: 1) Pain: Acetaminophen 1000mg po q6h prn for pain 1-3/10, Oxycodone 10mg po q4h prn for pain 4-10/10. Please continue to monitor prn usage and for signs/symptoms of increased/decreased pain. 2) GERD: Pantoprazole 40mg po daily. Please continue to monitor for signs/symptoms of GERD 3) Urinary Retention: Tamsulosin 0.4mg po daily at 1730. Current I & O's show a 1300ml urine output on 06/01/19 (a -1200ml balance in and out balance), and an 1800ml urine output on 06/02/2019 (a -1440 in and out balance). Please continue to record accurate I's and O's to monitor urine output and in and out balance. Thanks 4) Neuropathic Pain: Gabapentin 600mg po tid with food. Pt has had a prior amputation, will not put BEERS comment in. *5) Hyperlipidemia: Atorvastatin 20mg po qhs. Pt has not had a Lipid panel since 2012, and a LFT since 2018. Please consider a yearly Lipid panel while pt is on Atorvastatin. Thanks 6) Hyponatremia: Sodium Chloride 1gm po daily. Pt's last Na level was 131. Please continue to monitor. 7) Appetite Loss: Mirtazapine 15mg po qhs. Please see dieticians note from 05/2019 about poor oral intake. Please continue to monitor weight while on Mirtazapine. thanks 8) DVT Prophylaxis: Aspirin 81mg po bid with food. Please continue to monitor for signs/symptoms of bleeding/clot 9) Hypertension: Amlodipine 2.5mg po daily, Metoprolol tartrate 50mg po tid. Pt's pulse has been fast, rhythm has been normal. Please continue to monitor. Pt's average blood pressure is 136.2/80. Please continue to monitor. 10) COPD: Budesonide 0.5mg nebules bid, Albuterol nebules q2h prn for dyspnea, Duonebs q6h while awake. Please continue to monitor prn usage and for signs/symptoms of shortness of breath. Psychotropic Medications: Melatonin 10mg po qhs for insomnia. Medication will require a GDR 08/2019 unless clinically contraindicated. Hydroxyzine 25mg po tid prn for anxiety. Please continue to monitor prn usage and for signs/symptoms of increased/decreased anxiety. Unnecessary Medications: Bowel Regimen: Bisacodyl 10mg po daily prn for constipation, Miralax 17gm po bid, Senna/Docusate 2 tablets po bid. Please continue to monitor prn usage and for signs/symptoms of constipation/diarrhea. Date of Note:: 06/02/19 - Provider Comments Provider responsibility: Provider responsible to enter orders to implement recommendations <Mark Huber Chi - Last Filed: 06/02/19 16:00> Progress Note - Pharmacy Subjective: [] Objective: Allergies levofloxacin [From Levaquin] Allergy (Verified 05/29/19 10:10) Other Red streak up her arm and itiching pregabalin [From Lyrica] Allergy (Verified 05/29/19 10:10) Other Sulfa (Sulfonamide Antibiotics) Allergy (Verified 05/29/19 10:10) Anaphylaxis duloxetine [From Cymbalta] Adverse Reaction (Verified 05/29/19 10:10) Vomiting sertraline HCl [From Zoloft] Adverse Reaction (Verified 05/29/19 10:10) MAKES ME CRAZY makes me crazy Current Medications Generic Name Dose Route Start Last Admin Trade Name Freq PRN Reason Stop Dose Admin Acetaminophen 1,000 mg 06/01/19 17:48 06/02/19 08:40 Tylenol PO 1,000 mg Q6H PRN PRN Administration Pain Score 1-3/10 Albuterol Sulfate 2.5 mg 06/01/19 21:48 Ventolin Aerosols INHALATION Q2H PRN PRN DYSPNEA Albuterol Sulfate 2 puff 06/01/19 21:48 Ventolin Hfa (Sp) INHALATION Q6H PRN PRN SOB &/OR WHEEZING Albuterol/Ipratropium 3 ml 06/01/19 23:00 06/02/19 13:15 Duoneb INHALATION 3 ml Q6HWA.RT WISAM Administration Amlodipine Besylate 2.5 mg 06/02/19 06:00 06/02/19 06:27 Norvasc PO 2.5 mg DAILY WISAM Administration Aspirin 81 mg 06/02/19 08:00 06/02/19 10:45 Aspirin, Baby PO 81 mg BIDCM WISAM Administration Atorvastatin Calcium 20 mg 06/01/19 22:00 06/01/19 22:56 Lipitor PO 20 mg QHS WISAM Administration Bisacodyl 10 mg 06/01/19 19:33 Dulcolax PO DAILY PRN PRN Constipation Budesonide 0.5 mg 06/01/19 23:15 06/02/19 06:55 Pulmicort Aerosol INHALATION 0.5 mg BID.RT WISAM Administration Gabapentin 600 mg 06/02/19 07:45 06/02/19 12:35 Neurontin PO 600 mg TIDCM WISAM Administration Hydroxyzine Pamoate 25 mg 06/01/19 21:48 Vistaril Pamoate Capsule PO TID PRN PRN ANXIETY Melatonin 10 mg 06/01/19 22:00 06/01/19 22:56 Melatonin PO 10 mg QHS WISAM Administration Metoprolol Tartrate 50 mg 06/01/19 22:00 06/02/19 14:43 Lopressor (Beta Yany) PO 50 mg TID WISAM Administration Mirtazapine 15 mg 06/01/19 22:00 06/01/19 22:56 Remeron PO 15 mg QHS WISAM Administration Multivitamins/Minerals 1 tablet 06/02/19 08:00 06/02/19 10:45 Multivitamin With Minerals (Bkc) PO 1 tablet DAILYCM WISAM Administration Nutritional Formula (Lactose Free) 120 ml 06/02/19 12:00 06/02/19 12:34 Ensure Enlive PO 120 ml 4X/DAY WISAM Administration Nystatin 1 applic 06/02/19 22:00 Mycostatin Powder TOPICAL 0600,2200 [facility] Protocol Oxycodone HCl 10 mg 06/02/19 08:07 06/02/19 14:43 Oxyir PO 10 mg Q4H PRN PRN Administration Pain Score 4-10/10 Pantoprazole Sodium 40 mg 06/02/19 06:00 06/02/19 06:27 Protonix PO 40 mg DAILY WISAM Administration Polyethylene Glycol 17 gm 06/02/19 06:00 06/02/19 06:27 Miralax PO 17 gm BID WISAM Administration Senna/Docusate Sodium 2 tablet 06/01/19 18:00 06/02/19 06:27 Senokot-S, Libra-Colace PO 2 tablet BID WISAM Administration Sodium Chloride 1 gm 06/02/19 06:00 06/02/19 06:27 Sodium Chloride PO 1 gm DAILY WISAM Administration Tamsulosin HCl 0.4 mg 06/02/19 17:30 06/01/19 23:00 Flomax PO 0.4 mg DAILY@1730 WISAM Administration Tuberculin PPD 5 tu 06/09/19 10:00 Tubersol, Aplisol, Ppd ID 06/09/19 10:01 X1 ONE Problem List (Last Updated 11/05/18 @ 22:44 by Yumi Munroe) Debility (Acute) Elevated troponin (Acute) Acute kidney injury (Acute) Chronic diastolic (congestive) heart failure (Chronic) Seizure disorder (Chronic) Hypertension (Chronic) Diabetic polyneuropathy (Chronic) GERD (gastroesophageal reflux disease) (Chronic) Appetite loss (Chronic) Vital Signs Temp Pulse Resp BP Pulse Ox 96.8 F L 90 18 131/87 H 94 06/02/19 14:10 06/02/19 15:00 06/02/19 15:00 06/02/19 14:10 06/02/19 15:00 Oxygen Flow Rate (L/min) 2 Oxygen Delivery Method Nasal Cannula Weight: 56.416 kg Body Mass Index (BMI) 21.2 Finger Stick Blood Glucose 126 Sodium 131 mmol/L (136-145) L 06/02/19 06:06 Potassium 4.2 mmol/L (3.5-5.1) 06/02/19 06:06 Chloride 105 mmol/L (98-107) 06/02/19 06:06 Carbon Dioxide 21.0 mmol/L (21.0-32.0) 06/02/19 06:06 Anion Gap 5 (5-15) 06/02/19 06:06 BUN 18 mg/dL (7-18) 06/02/19 06:06 Creatinine 1.22 mg/dL (0.55-1.02) H 06/02/19 06:06 Est GFR (MDRD) Af Amer 57 mL/min (>60) L 06/02/19 06:06 Est GFR (MDRD) Non-Af 47 mL/min (>60) L 06/02/19 06:06 BUN/Creatinine Ratio 14.8 RATIO (10-20) 06/02/19 06:06 Glucose 94 mg/dL (74-106) 06/02/19 06:06 Assessment/Plan: Psychotropic Medications: Unnecessary Medications: Bowel Regimen: - Provider Comments Provider responsibility: Provider responsible to enter orders to implement recommendations Provider Comments to Recommendations by Pharmacy: Agree
--- NOTE | 2019-06-02 14:23 | CHAPLAIN ---
Type of Pastoral Visit _x__ Initial Visit ___ Follow-up Visit ___ On-call Visit ___ General Patient Visit ___ Spiritual Assessment ___ Family Conference ___ Bereavement ___ Rapid Response ___ Code Blue ___ Other (describe below) Pastoral Care Referral From _x__ Patient ___ Family ___ Nurse ___ Physician ___ Single Spindle Screw Machine Operator ___ Certified Shorthand Reporter ___ Other (describe below) Sacrament/Intervention _x__ Active listening ___ Anointing ___ Rastafari ___ Bereavement ___ Communion ___ Jumana exploration ___ ___ Life review ___ Prayer ___ Reconciliation ___ Sacrament of Sick ___ Supportive presence ___ Wedding ___ Other (describe below) Pastoral Comments patient remembers the whitewasher from previous admission and requested to talk; pt gives brief update about her health need and life; pt wants to watch her favorite TV show and asks whitewasher to come back
[2019-06-02] MEDS: Tamsulosin HCl 0.4 MG Capsule PO (18:09)
[2019-06-02] MEDS: Azithromycin 250 MG Tablet 500 MG PO (18:09)
[2019-06-02] MEDS: Mirtazapine 15 MG Tablet PO (20:01)
[2019-06-02] MEDS: MELATONIN 10 MG TABLET PO (20:01)
[2019-06-02] MEDS: Atorvastatin Calcium 20 MG Tablet PO (20:01)
[2019-06-03] VITALS (8 sets, daily range): BP systolic 121–151; BP diastolic 72–76; PULSE 82–101; RESP 18–20; TEMP 36.7–37.8; O2SAT 88–97
[2019-06-03] MEDS: Senna/Docusate Sodium 1 Tablet 2 TABLET PO ×2 (04:52→17:12)
[2019-06-03] MEDS: oxyCODONE 5 MG Tablet 10 MG PO ×3 (04:52→20:26)
[2019-06-03] MEDS: amLODIPine 2.5 MG Tablet PO (04:53)
[2019-06-03] MEDS: Pantoprazole Sodium 40 MG Tablet PO (04:53)
[2019-06-03] MEDS: SODIUM CHLORIDE 1 GM TABLET PO (04:53)
[2019-06-03] MEDS: Metoprolol Tartrate 50 MG Tablet PO ×3 (04:53→20:46)
[2019-06-03] MEDS: Nystatin Powder 15gm Bottle 1 APPLIC TOPICAL ×2 (04:55→20:48)
[2019-06-03] MEDS: Budesonide Respules 0.5 MG/2 ML AMPUL.NEB. INHALATION ×2 (06:28→19:42)
[2019-06-03] MEDS: Ipratropium/Albuterol Sulfate 3 ML AMPUL.NEB INHALATION ×2 (06:28→19:42)
[2019-06-03] MEDS: Multivitamins,Ther W-Minerals Tablet 1 TABLET PO (08:40)
[2019-06-03] MEDS: Azithromycin 250 MG Tablet PO (08:40)
[2019-06-03] MEDS: Gabapentin 600 MG Tablet PO ×3 (08:40→17:12)
[2019-06-03] MEDS: Aspirin 81 MG TAB.CHEW PO ×2 (08:43→17:12)
[2019-06-03] MEDS: Tamsulosin HCl 0.4 MG Capsule PO (17:12)
--- NOTE | 2019-06-03 20:40 | NURSING ---
At 2030 this nurse in to assess patient at this time. Patient is pale. Patient states that she has not been feeling good all day. Patient hot to the touch. Vital signs taken at this time. BP 146/72 P 95 O2 93 on 3 L O2 T 100.1 orally. Patient noted to have wheezes in lungs. Patient's dressing taken off to left hip. Left hip incision with [place], bruising, and some serosanguineous drainage noted. Dressing placed on left hip. Dr. Huber notified. New orders given at this time.
[2019-06-03] MEDS: MELATONIN 10 MG TABLET PO (20:46)
[2019-06-03] MEDS: Mirtazapine 15 MG Tablet PO (20:46)
[2019-06-03] MEDS: Atorvastatin Calcium 20 MG Tablet PO (20:47)
[2019-06-03 21:22] LABS: Absolute Lymphocyte Count 0.89 X10^3/uL (0.83-4.51); Absolute Neutrophil Count 3.7 X10^3/uL (2.0-7.7); Basophil# 0.02 X10^3/uL; Basophil% 0.3 % (0-1); Eosinophil# 0.28 X10^3/uL; Eosinophils% 4.8 % (0-5); Hematocrit 30.2 % (37-47); Hemoglobin 9.6 g/dL (12.0-15.0); Lymphocyte # 0.89 X10^3/ul (4.0); Lymphocyte % 15.2 % (19-41); Mean Corp Hgb Conc 31.8 g/dL (32-36); Mean Corpuscular Hgb 30.3 pg (27.0-32.0); Mean Corpuscular Volume 95.3 fL (81-99); Mean Platelet Vol. 9.8 fl (6.2-12.0); Monocyte# 0.92 X10^3/uL; Monocyte% 15.7 % (0-10); NRBC Flagged by Analyzer 0 % (0-5); Neutrophil % 63.3 % (47-70); Platelet Count 129 K/mm3 (150-450); RBC Distribution Width CV 13.8 % (11.6-14.6); RBC Distribution Width SD 47.7 fl (35.1-43.9); Red Blood Count 3.17 M/mm3 (4.2-5.4); White Blood Count 5.9 K/mm3 (4.4-11.0)
--- NOTE | 2019-06-03 21:24 | RAD_ITS ---
STUDY: X-RAY CHEST REASON FOR EXAM: Female, 69 years old. fever with sob TECHNIQUE: AP and lateral views of the chest. COMPARISON: Previous study of 05/29/2019 FINDINGS: There is a limited inspiration. There are small ill-defined patchy infiltrates of the right midlung field and left lung base. There is a small left-sided pleural effusion. Normal size heart. Normal mediastinum and rhea. Normal visualized pulmonary arteries. There are calcified plaques of the aortic arch. There are severe compression deformities with anterior wedging of several of the mid thoracic vertebrae with prominent dorsal kyphosis. These appear stable in the interval. There are several old right-sided rib fractures. There is a suspected impacted surgical neck fracture of the left humerus, not previously seen. There is no demonstrated abnormality of the visualized soft tissue structures of the upper abdomen. RAD/Chest PA and Lateral IMPRESSION: Small ill-defined infiltrates of the right midlung field and left lung base. These are new in the interval. Small left-sided pleural effusion, also new in the interval. Suspected impacted surgical neck fracture of the left humerus, not previously seen. Specific views of the left shoulder joint are recommended for further evaluation. Calcified plaques in the aortic arch. Electronically Signed: Raoul Dempsey MD at 21:57 EDT , Service support ,
[2019-06-03 21:37] LABS: Anion Gap 5 (5-15); BUN 17 mg/dL (7-18); BUN/Creat Ratio 18.4 RATIO (10-20); Calcium,Total 8.8 mg/dL (8.5-10.1); Chloride 97 mmol/L (98-107); Creatinine, Serum 0.92 mg/dL (0.55-1.02); EST Glomerular Filtration Rate 64 mL/min (>60); Est Glom Filt Rate - Afr Amer 78 mL/min (>60); Estimated Creatinine Clearance 51.24 ml/min; Glucose 101 mg/dL (74-106); Potassium 4.3 mmol/L (3.5-5.1); Sodium Level 131 mmol/L (136-145)
--- NOTE | 2019-06-03 22:10 | NURSING ---
Dr. Huber notified of the chest xray results as well as lab results. New orders given.
[2019-06-03 22:50] LABS: Bacteria 0 SEEN /hpf (None Seen); Mucous, Urine 0 SEEN /hpf (<or=2+); Red Blood Cells-Urine 0 SEEN /hpf (0-5)
[2019-06-03 23:03] LABS: Color, Urine Yellow (Yellow); Glucose, Dipstick Normal (Normal); Ketone-Dipstick Negative (Negative); Leukocyte Esterase-Dipstick 25 /ul (Negative); Nitrite-Dipstick Negative (Negative); Occult Blood-Urine Negative /ul (Negative); Protein-Dipstick Negative (Negative); Specific Gravity, Urine 1.005 (1.002-1.030); Urine Bilirubin Dipstick Negative (Negative); Urine Clarity Sl. Cloudy (Clear); Urine Urobilinogen Normal (Normal)
[2019-06-03 23:12] LABS: Squamous Epithelial Cells - UA 0-5 SEEN /hpf (5-10); White Blood Cells 0-5 SEEN /hpf (0-5)
[2019-06-03] MEDS: Dext 5%-0.45% NS 1,000 ML 75 ML IV (23:24)
[2019-06-03] MEDS: Ceftriaxone 1 GM/50 ML BAG IV (23:24)
[2019-06-03] MEDS: 0.9% Saline Lock 10 ML Syringe IV (23:35)
[2019-06-03] MEDS: Azithromycin 250 MG Tablet 500 MG PO (23:37)
[2019-06-04] VITALS (8 sets, daily range): BP systolic 129–183; BP diastolic 65–83; PULSE 86–107; RESP 15–20; TEMP 36.2–37.2; O2SAT 92–95
[2019-06-04] MEDS: oxyCODONE 5 MG Tablet 10 MG PO ×4 (04:02→18:34)
[2019-06-04] MEDS: Senna/Docusate Sodium 1 Tablet 2 TABLET PO ×2 (05:49→17:11)
[2019-06-04] MEDS: Metoprolol Tartrate 50 MG Tablet PO ×3 (05:50→21:39)
[2019-06-04] MEDS: amLODIPine 2.5 MG Tablet PO (05:50)
[2019-06-04] MEDS: SODIUM CHLORIDE 1 GM TABLET PO (05:51)
[2019-06-04] MEDS: Pantoprazole Sodium 40 MG Tablet PO (05:51)
[2019-06-04] MEDS: Nystatin Powder 15gm Bottle 1 APPLIC TOPICAL ×2 (05:56→21:39)
[2019-06-04] MEDS: Ipratropium/Albuterol Sulfate 3 ML AMPUL.NEB INHALATION ×3 (06:40→20:45)
[2019-06-04] MEDS: Budesonide Respules 0.5 MG/2 ML AMPUL.NEB. INHALATION ×2 (06:40→20:45)
--- NOTE | 2019-06-04 08:17 | PCM.TCUNOT ---
Subjective: Resident seen in room, lying in bed. She does not feel well, last night she had fever. Vitals/I&O's: Vital Signs Temp Pulse Resp BP Pulse Ox 98.9 F 86 20 H 183/83 H 92 06/04/19 04:05 06/04/19 06:40 06/04/19 06:40 06/04/19 05:50 06/04/19 06:40 Oxygen Flow Rate (L/min) 3 Oxygen Delivery Method Nasal Cannula Weight: 56.416 kg Body Mass Index (BMI) 21.2 Finger Stick Blood Glucose 126 Intake and Output for Last 24 Hours 06/02/19 06/03/19 06/04/19 23:59 23:59 23:59 Intake Total 360 / 360 480 / 480 50 / 50 Output Total 2350 / 2350 1400 / 1400 1450 / 1450 Balance -1989 / -1989 -920 / -920 -1400 / -1400 Microbiology Past 72 Hours 06/03/19 22:24 Mucosa - Nasopharyngeal Respiratory Panel (PCR) - Final Laboratory Results 06/03/19 21:02: WBC 5.9, RBC 3.17 L, Hgb 9.6 L, Hct 30.2 L, MCV 95.3, MCH 30.3, MCHC 31.8 L, RDW Std Deviation 47.7 H, RDW Coeff of Reina 13.8, Plt Count 129 L, MPV 9.8, Immature Gran % (Auto) 0.700, Neut % (Auto) 63.3, Lymph % (Auto) 15.2 L, [place] % (Auto) 15.7 H, Eos % (Auto) 4.8, Baso % (Auto) 0.3, Absolute Neuts (auto) 3.7, Absolute Lymphs (auto) 0.89, Nucleated RBC % 0 06/03/19 21:02: Sodium 131 L, Potassium 4.3, Chloride 97 L, Carbon Dioxide 29.0, Anion Gap 5, BUN 17, Creatinine 0.92, Estim Creat Clear Calc 51.24, Est GFR (MDRD) Af Amer 78, Est GFR (MDRD) Non-Af 64, BUN/Creatinine Ratio 18.4, Glucose 101, Calcium 8.8 06/03/19 22:45: Urine Color Yellow, Urine Clarity Sl. Cloudy, Urine pH 7.0, Ur Specific [place] 1.005, Urine Protein Negative, Urine Glucose (UA) Normal, Urine Ketones Negative, Urine Occult Blood Negative, Urine Nitrite Negative, Urine Bilirubin Negative, Urine Urobilinogen Normal, Ur Leukocyte Esterase 25 H, Urine RBC 0 SEEN, Urine WBC 0-5 SEEN, Ur Squamous Epith Cells 0-5 SEEN, Urine Bacteria 0 SEEN, Urine Mucus 0 SEEN Past Medical History Past Medical History (Chronic Problems): Chronic Problems (Last Updated 11/05/18 @ 22:44 by Yumi Munroe) CHF (congestive heart failure) (Chronic) COPD (chronic obstructive pulmonary disease) (Chronic) Seizures (Chronic) Diabetes (Chronic) Hyponatremia (Chronic) Chronic diastolic (congestive) heart failure (Chronic) Seizure disorder (Chronic) Hypertension (Chronic) Diabetic polyneuropathy (Chronic) GERD (gastroesophageal reflux disease) (Chronic) Appetite loss (Chronic) Essential (primary) hypertension (Chronic) Hyperlipidemia (Chronic) Peripheral arterial occlusive disease (Chronic) Acute on chronic congestive heart failure (Chronic) Medical History: Medical History (Last Updated 11/05/18 @ 22:44 by Yumi Munroe) Essential (primary) hypertension (Chronic) I10 Hyperlipidemia (Chronic) E78.5 Peripheral arterial occlusive disease (Chronic) I77.9 Acute on chronic congestive heart failure (Chronic) I50.9 Atherosclerosis of lower [place] artery of left lower extremity I70.202 COPD (chronic obstructive pulmonary disease) J44.9 Cerebrovascular disease I67.9 Status post acute ischemic stroke no residual deficit Moderate carotid disease Bilateral carotid endarterectomy Chronic hypoxemic respiratory failure J96.11 Chronic ulcer of left foot with fat layer exposed L97.522 Hammer toe of left foot M20.42 Insomnia G47.00 Neuropathic pain M79.2 Osteoporosis M81.0 Other specified peripheral vascular diseases I73.89 Seizure disorder G40.909 Type 2 diabetes mellitus with diabetic polyneuropathy E11.42 Vertebral compression fracture M48.50XA Abdominal pain (Resolved) R10.9 Foot ulcer, left (Resolved) L97.529 Fracture of fifth toe, left, closed (Resolved) S92.502A Shortness of breath (Resolved) R06.02 Tobacco user Z72.0 Allergies levofloxacin [From Levaquin] Allergy (Verified 05/29/19 10:10) Other Red streak up her arm and itiching pregabalin [From Lyrica] Allergy (Verified 05/29/19 10:10) Other Sulfa (Sulfonamide Antibiotics) Allergy (Verified 05/29/19 10:10) Anaphylaxis duloxetine [From Cymbalta] Adverse Reaction (Verified 05/29/19 10:10) Vomiting sertraline HCl [From Zoloft] Adverse Reaction (Verified 05/29/19 10:10) MAKES ME CRAZY makes me crazy Home Medications: Ambulatory Orders Medication Instructions Recorded Albuterol IH (ProAir) [Proair Hfa] 2 puff INHALATION Q6H PRN PRN 04/05/17 Gabapentin [Neurontin] 600 mg PO TIDCM 04/05/17 Ipratropium/Albuterol Sulfate 3 ml INHALATION Q6HWA.RT 04/05/17 [Duoneb] Sodium Chloride 1 gm PO DAILY 04/05/17 Budesonide Aerosol [Pulmicort 0.5 mg INHALATION BID 08/21/17 Respules] Multivitamins,Ther W-Minerals 1 tab PO DAILYCM 08/31/17 [Multivitamin With Minerals (BKC)] Pantoprazole Sodium 40 mg PO DAILY #30 tablet.dr 09/17/17 atorvastatin 20 mg tablet 20 mg PO QDAY #90 tab 10/18/17 metoprolol tartrate 50 mg tablet 50 mg PO TID tab 10/18/17 Amlodipine [Norvasc] 2.5 mg PO DAILY 05/29/19 Melatonin 10 mg PO QHS 05/29/19 Mirtazapine [Remeron] 15 mg PO QHS 05/29/19 Albuterol Aerosols [Ventolin 2.5 mg INHALATION Q2H PRN PRN 06/01/19 Aerosols] vial.neb. Aspirin [Aspirin, Baby] 81 mg PO BID 06/01/19 Insulin Lispro [Humalog KwikPen] See Protocol SQ ACHS 06/01/19 Oxycodone [Oxyir] 10 mg PO Q4H PRN PRN 06/01/19 Polyethylene Glycol 3350 [Miralax] 17 gm PO BID 06/01/19 Tamsulosin HCl [Flomax] 0.4 mg PO DAILY@1730 06/01/19 hydrOXYzine pamoate capsule 25 mg PO TID PRN PRN cap 06/01/19 [Vistaril pamoate capsule] Surgical History: Surgical History (Last Updated 11/05/18 @ 22:43 by Yumi Munroe) History of above knee amputation Onset Date: 08/28/17 Z89.619 left History of appendectomy Z98.890, Z90.49 History of bilateral carotid endarterectomy Z98.890 History of hysterectomy Z98.890, Z90.710 abdominal aorta endovascular stent graft bilateral femoral endarterectomy bilateral iliac stenting Surgical History: appendectomy, hysterectomy, total hip arthroplasty - Left cemented hemiarthroplasty., - - Bilateral carotid endarterectomy,pad surgery with stents. Appears some type of either mesenteric stent or mesenteric bypass or aortic surgery Left femoral to distal bypass Left above knee amputation, Bilateral carotid endarterectomy. 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 history Lives: With Family Smoking Status: Current every day smoker Tobacco Use: Cigarettes Alcohol: None Drugs: None - *Family History Paternal Family History: Family History (Last Reviewed 05/29/19 @ 13:01 by GENEVA Kirby) Mother CVA (cerebral vascular accident) History Items: Heart Disease Maternal Family History: Family History (Last Reviewed 05/29/19 @ 13:01 by GENEVA Kirby) Mother CVA (cerebral vascular accident) History Items: No pertinent history Capacity - Capacity Assessment Tool Can the patient make a choice & communicate that choice?: Yes Can the patient understand benefits, risks and alternatives?: Yes Can the patient make a logical, rational choice?: Yes Is the choice the patient makes consistent w/ their values?: Yes Is there an impending, emergent risk to the patient?: No Does the patient have an Advance Directive?: No Is there a Surrogate Available?: Yes i.e. HCPOA: Yes i.e. close relative (spouse, child, parent, sibling)?: Yes Review of Systems Constitutional: Reports: Malaise, Weakness. Denies: Chills, Fever, Weight Change HEENT: Denies: Head Aches, Sinus Congestion, Sinus Drainage Cardiovascular: Denies: Chest Pain, Palpitations Respiratory: Reports: Cough. Denies: Shortness of breath at rest, Sputum production Gastrointestinal: Denies: Abdominal Pain, Nausea, Vomiting Genitourinary: Denies: Dysuria Musculoskeletal: Denies: Joint Pain, Joint Tenderness Skin: Denies: Rash, Wounds Neurological: Denies: Numbness, Tingling, Focal weakness Psychiatric: Denies: Anxiety, Depression, Homicidal Ideations, Suicidal Ideations Hematologic/ Lymphatic: Denies: Easy Bruising, Easy Bleeding Patient Problems: Active and Suspected Problems (Last Updated 11/05/18 @ 22:44 by Yumi Munroe) Debility (Acute) Elevated troponin (Acute) Acute kidney injury (Acute) - Physical Exam Vitals/I&O's: Vital Signs Temp Pulse Resp BP Pulse Ox 98.9 F 86 20 H 183/83 H 92 06/04/19 04:05 06/04/19 06:40 06/04/19 06:40 06/04/19 05:50 06/04/19 06:40 Oxygen Flow Rate (L/min) 3 Oxygen Delivery Method Nasal Cannula Weight: 56.416 kg Body Mass Index (BMI) 21.2 Finger Stick Blood Glucose 126 Intake and Output for Last 24 Hours 06/02/19 06/03/19 06/04/19 23:59 23:59 23:59 Intake Total 360 / 360 480 / 480 50 / 50 Output Total 2350 / 2350 1400 / 1400 1450 / 1450 Balance -1989 / -1989 -920 / -920 -1400 / -1400 General: Alert, Oriented x3, Cooperative HEENT: Atraumatic, PERRLA, EOMI, Normocephalic Neck: Supple, No JVD, Negative Carotid Bruits Lungs: Normal air movement, - - Bibasilar crackles. Cardiovascular: Regular rate, No murmurs Abdomen: Bowel Sounds Present, Soft, Non Tender Extremities: No edema, Capillary Refill Less than 3 Seconds Skin: No rashes, No breakdown Musculoskeletal: No Tenderness to Palpation of Joints or Extremities Neurological: Cranial nerves II-XII grossly intact Psych/Mental Status: Normal Affect, Appropriate Microbiology Past 72 Hours 06/03/19 22:24 Mucosa - Nasopharyngeal Respiratory Panel (PCR) - Final Laboratory Results 06/03/19 21:02: WBC 5.9, RBC 3.17 L, Hgb 9.6 L, Hct 30.2 L, MCV 95.3, MCH 30.3, MCHC 31.8 L, RDW Std Deviation 47.7 H, RDW Coeff of [place] 13.8, Plt Count 129 L, MPV 9.8, Immature Gran % (Auto) 0.700, Neut % (Auto) 63.3, Lymph % (Auto) 15.2 L, [place] % (Auto) 15.7 H, Eos % (Auto) 4.8, Baso % (Auto) 0.3, Absolute Neuts (auto) 3.7, Absolute Lymphs (auto) 0.89, Nucleated RBC % 0 06/03/19 21:02: Sodium 131 L, Potassium 4.3, Chloride 97 L, Carbon Dioxide 29.0, Anion Gap 5, BUN 17, Creatinine 0.92, Estim Creat Clear Calc 51.24, Est GFR (MDRD) Af Amer 78, Est GFR (MDRD) Non-Af 64, BUN/Creatinine Ratio 18.4, Glucose 101, Calcium 8.8 06/03/19 22:45: Urine Color Yellow, Urine Clarity Sl. Cloudy, Urine pH 7.0, Ur Specific [place] 1.005, Urine Protein Negative, Urine Glucose (UA) Normal, Urine Ketones Negative, Urine Occult Blood Negative, Urine Nitrite Negative, Urine Bilirubin Negative, Urine Urobilinogen Normal, Ur Leukocyte Esterase 25 H, Urine RBC 0 SEEN, Urine WBC 0-5 SEEN, Ur Squamous Epith Cells 0-5 SEEN, Urine Bacteria 0 SEEN, Urine Mucus 0 SEEN Current Medications Acetaminophen (Tylenol) 1,000 mg PO Q6H PRN PRN PRN Reason: Pain Score 1-3/10 Last Admin: 06/02/19 08:40 Dose: 1,000 mg Documented by: Albuterol Sulfate (Ventolin Aerosols) 2.5 mg INHALATION Q2H PRN PRN PRN Reason: DYSPNEA Albuterol Sulfate (Ventolin Hfa (Sp)) 2 puff INHALATION Q6H PRN PRN PRN Reason: SOB &/OR WHEEZING Albuterol/Ipratropium (Duoneb) 3 ml INHALATION Q6HWA.RT [facility] Last Admin: 06/04/19 06:40 Dose: 3 ml Documented by: Amlodipine Besylate (Norvasc) 2.5 mg PO DAILY [facility] Last Admin: 06/04/19 05:50 Dose: 2.5 mg Documented by: Aspirin (Aspirin, Baby) 81 mg PO BIDCM [facility] Last Admin: 06/03/19 17:12 Dose: 81 mg Documented by: Atorvastatin Calcium (Lipitor) 20 mg PO QHS [facility] Last Admin: 06/03/19 20:47 Dose: 20 mg Documented by: Azithromycin (Zithromax) 250 mg PO Q24 [facility] Stop: 06/08/19 10:01 Bisacodyl (Dulcolax) 10 mg PO DAILY PRN PRN PRN Reason: Constipation Budesonide (Pulmicort Aerosol) 0.5 mg INHALATION BID.RT [facility] Last Admin: 06/04/19 06:40 Dose: 0.5 mg Documented by: Gabapentin (Neurontin) 600 mg PO TIDCM [facility] Last Admin: 06/03/19 17:12 Dose: 600 mg Documented by: Dextrose/Sodium Chloride () 1,000 mls @ 75 mls/hr IV .[id number] [facility] Last Admin: 06/03/19 23:24 Dose: 75 mls/hr Documented by: Ceftriaxone Sodium (Rocephin) 1 gm in 50 mls @ 100 mls/hr IV Q24H [facility] Lorazepam (Ativan) 0.5 mg PO Q6H PRN PRN PRN Reason: ANXIETY Melatonin (Melatonin) 10 mg PO QHS [facility] Last Admin: 06/03/19 20:46 Dose: 10 mg Documented by: Metoprolol Tartrate (Lopressor (Beta Yany)) 50 mg PO TID [facility] Last Admin: 06/04/19 05:50 Dose: 50 mg Documented by: Mirtazapine (Remeron) 15 mg PO QHS [facility] Last Admin: 06/03/19 20:46 Dose: 15 mg Documented by: Multivitamins/Minerals (Multivitamin With Minerals (Bkc)) 1 tablet PO DAILYCM [facility] Last Admin: 06/03/19 08:40 Dose: 1 tablet Documented by: Nutritional Formula (Lactose Free) (Ensure Enlive) 120 ml PO 4X/DAY [facility] Last Admin: 06/04/19 05:50 Dose: Not Given Documented by: Nystatin (Mycostatin Powder) 1 applic TOPICAL 0600,2200 [facility]; Protocol Last Admin: 06/04/19 05:56 Dose: 1 applicatio Documented by: Oxycodone HCl (Oxyir) 10 mg PO Q4H PRN PRN PRN Reason: Pain Score 4-10/10 Last Admin: 06/04/19 04:02 Dose: 10 mg Documented by: Pantoprazole Sodium (Protonix) 40 mg PO DAILY [facility] Last Admin: 06/04/19 05:51 Dose: 40 mg Documented by: Polyethylene Glycol (Miralax) 17 gm PO BID [facility] Last Admin: 06/04/19 05:50 Dose: Not Given Documented by: Senna/Docusate Sodium (Senokot-S, Libra-Colace) 2 tablet PO BID [facility] Last Admin: 06/04/19 05:49 Dose: 2 tablet Documented by: Sodium Chloride (Sodium Chloride) 1 gm PO DAILY [facility] Last Admin: 06/04/19 05:51 Dose: 1 gm Documented by: Sodium Chloride () 10 - 40 ml IV UD PRN PRN Reason: SALINE FLUSH Last Admin: 06/03/19 23:35 Dose: 40 ml Documented by: Tamsulosin HCl (Flomax) 0.4 mg PO DAILY@1730 [facility] Last Admin: 06/03/19 17:12 Dose: 0.4 mg Documented by: Tuberculin PPD (Tubersol, Aplisol, Ppd) 5 tu ID [id number] ONE Stop: 06/09/19 10:01 Assessment/Plan All Active Problems (Last Updated 11/05/18 @ 22:44 by Yumi Munroe) Closed left hip fracture (Acute) Left humeral fracture (Acute) Anemia (Acute) Thrombocytopenia (Acute) Debility (Acute) Elevated troponin (Acute) Acute kidney injury (Acute) Abdominal pain (Resolved) Foot ulcer, left (Resolved) Fracture of fifth toe, left, closed (Resolved) Hyponatremia (Resolved) Shortness of breath (Resolved) Viral syndrome (Resolved) Cellulitis of foot (Ruled-out) 69 year old female with below past medical history hospitalized for left hip fracture, left humerus fracture, underwent left hip cemented hemiarthroplasty with Dr. Abhishek Winters 05/29/2019, complicated by postoperative anemia, elevated troponin, acute kidney injury, admitted to TCU with debility, here for rehabilitation, strengthening, prior to discharge home with family. Malaise - CBCD okay, BMP Sodium 131. Fever - 100.1, Chest X-ray shows bilateral pneumonia, UA negative, Respiratory panel negative, Blood cultures pending. Pneumonia - Rocephin 1GM IV Q24H x 7 days, oral Z-jono due to IV Azithromycin shortage. Dehydration - D51/2NS @60cc/hour, she is eating some. Tobacco Abuse - Reiterated the importance of smoking cessation, also increased risk of from COVID-19 from smoking related illness. Hyponatremia - SIADH, chronic, Sodium chloride 1GM daily.
[2019-06-04] MEDS: Azithromycin 250 MG Tablet PO (08:41)
[2019-06-04] MEDS: Gabapentin 600 MG Tablet PO ×3 (08:41→17:10)
[2019-06-04] MEDS: Multivitamins,Ther W-Minerals Tablet 1 TABLET PO (08:41)
[2019-06-04] MEDS: Aspirin 81 MG TAB.CHEW PO ×2 (08:41→17:10)
[2019-06-04] MEDS: Acetaminophen 500 MG Tablet 1000 MG PO ×2 (12:00→21:44)
[2019-06-04] MEDS: Menthol/Lanolin/Calamine/Znox 113 GM Tube 1 APPLIC TOPICAL ×2 (12:13→17:10)
[2019-06-04] MEDS: Dext 5%-0.45% NS 1,000 ML 75 ML IV (13:33)
[2019-06-04] MEDS: Tamsulosin HCl 0.4 MG Capsule PO (17:10)
[2019-06-04] MEDS: Mirtazapine 15 MG Tablet PO (21:38)
[2019-06-04] MEDS: Ceftriaxone 1 GM/50 ML BAG IV (21:38)
[2019-06-04] MEDS: MELATONIN 10 MG TABLET PO (21:38)
[2019-06-04] MEDS: Atorvastatin Calcium 20 MG Tablet PO (21:38)
[2019-06-05] VITALS (8 sets, daily range): BP systolic 126–153; BP diastolic 61–74; PULSE 73–104; RESP 17–20; TEMP 36.5; O2SAT 94–97
[2019-06-05] MEDS: oxyCODONE 5 MG Tablet 10 MG PO ×5 (00:01→21:38)
[2019-06-05] MEDS: Dext 5%-0.45% NS 1,000 ML 75 ML IV (03:41)
[2019-06-05] MEDS: Acetaminophen 500 MG Tablet 1000 MG PO (03:46)
[2019-06-05] MEDS: Albuterol 2.5 MG/3 ML VIAL.NEB. INHALATION (03:52)
[2019-06-05] MEDS: Pantoprazole Sodium 40 MG Tablet PO (04:43)
[2019-06-05] MEDS: Metoprolol Tartrate 50 MG Tablet PO ×3 (04:43→21:34)
[2019-06-05] MEDS: amLODIPine 2.5 MG Tablet PO (04:43)
[2019-06-05] MEDS: SODIUM CHLORIDE 1 GM TABLET PO (04:44)
[2019-06-05] MEDS: Senna/Docusate Sodium 1 Tablet 2 TABLET PO ×2 (04:44→17:26)
[2019-06-05] MEDS: Nystatin Powder 15gm Bottle 1 APPLIC TOPICAL ×2 (04:46→21:37)
[2019-06-05] MEDS: Menthol/Lanolin/Calamine/Znox 113 GM Tube 1 APPLIC TOPICAL ×2 (04:47→17:27)
[2019-06-05] MEDS: Ipratropium/Albuterol Sulfate 3 ML AMPUL.NEB INHALATION ×2 (06:34→13:06)
[2019-06-05] MEDS: Budesonide Respules 0.5 MG/2 ML AMPUL.NEB. INHALATION (06:34)
[2019-06-05] MEDS: Gabapentin 600 MG Tablet PO ×3 (08:39→17:26)
[2019-06-05] MEDS: Multivitamins,Ther W-Minerals Tablet 1 TABLET PO (08:39)
[2019-06-05] MEDS: Aspirin 81 MG TAB.CHEW PO ×2 (08:39→18:21)
[2019-06-05] MEDS: Azithromycin 250 MG Tablet PO (11:15)
[2019-06-05] MEDS: Ondansetron ODT 4 MG Tablet PO (11:21)
[2019-06-05] MEDS: Tamsulosin HCl 0.4 MG Capsule PO (17:26)
[2019-06-05] MEDS: 0.9% Saline Lock 10 ML Syringe IV (21:29)
[2019-06-05] MEDS: Mirtazapine 15 MG Tablet PO (21:37)
[2019-06-05] MEDS: MELATONIN 10 MG TABLET PO (21:37)
[2019-06-05] MEDS: Atorvastatin Calcium 20 MG Tablet PO (21:38)
[2019-06-05] MEDS: Ceftriaxone 1 GM/50 ML BAG IV (21:38)
[2019-06-05] MEDS: 0.9% NaCl IVPB Med Flush (250 mL) 100 ML IV (22:08)
[2019-06-06] VITALS (7 sets, daily range): BP systolic 113–153; BP diastolic 62–100; PULSE 65–103; RESP 18; TEMP 36.6; O2SAT 91–99
[2019-06-06] MEDS: Ondansetron ODT 4 MG Tablet PO (02:56)
[2019-06-06] MEDS: oxyCODONE 5 MG Tablet 10 MG PO ×5 (02:59→23:02)
[2019-06-06] MEDS: Senna/Docusate Sodium 1 Tablet 2 TABLET PO ×2 (06:27→17:18)
[2019-06-06] MEDS: Menthol/Lanolin/Calamine/Znox 113 GM Tube 1 APPLIC TOPICAL ×2 (06:27→17:19)
[2019-06-06] MEDS: SODIUM CHLORIDE 1 GM TABLET PO (06:27)
[2019-06-06] MEDS: amLODIPine 2.5 MG Tablet PO (06:27)
[2019-06-06] MEDS: Pantoprazole Sodium 40 MG Tablet PO (06:27)
[2019-06-06] MEDS: Nystatin Powder 15gm Bottle 1 APPLIC TOPICAL ×2 (06:28→21:31)
[2019-06-06] MEDS: Metoprolol Tartrate 50 MG Tablet PO ×3 (06:28→21:29)
[2019-06-06] MEDS: Ipratropium/Albuterol Sulfate 3 ML AMPUL.NEB INHALATION ×3 (06:45→19:19)
[2019-06-06] MEDS: Multivitamins,Ther W-Minerals Tablet 1 TABLET PO (08:00)
[2019-06-06] MEDS: Gabapentin 600 MG Tablet PO ×3 (08:00→17:19)
[2019-06-06] MEDS: Aspirin 81 MG TAB.CHEW PO ×2 (08:00→17:19)
[2019-06-06] MEDS: Azithromycin 250 MG Tablet PO (08:00)
[2019-06-06] MEDS: Acetaminophen 500 MG Tablet 1000 MG PO ×2 (12:15→21:29)
[2019-06-06] MEDS: Tamsulosin HCl 0.4 MG Capsule PO (17:19)
[2019-06-06] MEDS: Budesonide Respules 0.5 MG/2 ML AMPUL.NEB. INHALATION (19:19)
[2019-06-06] MEDS: 0.9% Saline Lock 10 ML Syringe IV (21:05)
[2019-06-06] MEDS: Ceftriaxone 1 GM/50 ML BAG IV (21:05)
[2019-06-06] MEDS: 0.9% NaCl IVPB Med Flush (250 mL) 100 ML IV (21:05)
[2019-06-06] MEDS: MELATONIN 10 MG TABLET PO (21:29)
[2019-06-06] MEDS: Atorvastatin Calcium 20 MG Tablet PO (21:29)
[2019-06-06] MEDS: Mirtazapine 15 MG Tablet PO (21:29)
[2019-06-07] VITALS (9 sets, daily range): BP systolic 117–135; BP diastolic 60–69; PULSE 65–92; RESP 16–20; TEMP 36.7; O2SAT 92–96
[2019-06-07] MEDS: oxyCODONE 5 MG Tablet 10 MG PO ×4 (03:39→22:42)
[2019-06-07] MEDS: Albuterol 2.5 MG/3 ML VIAL.NEB. INHALATION (03:57)
[2019-06-07] MEDS: Senna/Docusate Sodium 1 Tablet 2 TABLET PO ×2 (06:45→17:34)
[2019-06-07] MEDS: Pantoprazole Sodium 40 MG Tablet PO (06:45)
[2019-06-07] MEDS: amLODIPine 2.5 MG Tablet PO (06:45)
[2019-06-07] MEDS: SODIUM CHLORIDE 1 GM TABLET PO (06:45)
[2019-06-07] MEDS: Metoprolol Tartrate 50 MG Tablet PO ×3 (06:45→20:58)
[2019-06-07] MEDS: Acetaminophen 500 MG Tablet 1000 MG PO ×3 (06:45→20:57)
[2019-06-07] MEDS: Nystatin Powder 15gm Bottle 1 APPLIC TOPICAL ×2 (06:46→20:58)
[2019-06-07] MEDS: Menthol/Lanolin/Calamine/Znox 113 GM Tube 1 APPLIC TOPICAL ×2 (06:47→17:35)
[2019-06-07] MEDS: Ipratropium/Albuterol Sulfate 3 ML AMPUL.NEB INHALATION ×3 (07:29→19:18)
[2019-06-07] MEDS: Budesonide Respules 0.5 MG/2 ML AMPUL.NEB. INHALATION ×2 (07:29→19:18)
[2019-06-07] MEDS: Gabapentin 600 MG Tablet PO ×3 (08:59→17:35)
[2019-06-07] MEDS: Multivitamins,Ther W-Minerals Tablet 1 TABLET PO (08:59)
[2019-06-07] MEDS: Aspirin 81 MG TAB.CHEW PO ×2 (08:59→17:35)
[2019-06-07] MEDS: Azithromycin 250 MG Tablet PO (08:59)
[2019-06-07] MEDS: 0.9% Saline Lock 10 ML Syringe IV ×2 (09:01→20:57)
[2019-06-07] MEDS: LORazepam 0.5 MG Tablet PO ×2 (10:28→17:39)
[2019-06-07] MEDS: Ondansetron ODT 4 MG Tablet PO (10:28)
--- NOTE | 2019-06-07 14:14 | NURSING ---
pt was assisted to BSC and pinched posterior thighs between seat & frame of BSC. Linear red marta noted. left SHOSHANA.
[2019-06-07] MEDS: Tamsulosin HCl 0.4 MG Capsule PO (17:34)
[2019-06-07] MEDS: Atorvastatin Calcium 20 MG Tablet PO (20:56)
[2019-06-07] MEDS: MELATONIN 10 MG TABLET PO (20:56)
[2019-06-07] MEDS: Mirtazapine 15 MG Tablet PO (20:57)
[2019-06-08] VITALS (9 sets, daily range): BP systolic 116–147; BP diastolic 55–82; PULSE 70–100; RESP 16–18; TEMP 36.5; O2SAT 94–99
[2019-06-08] MEDS: oxyCODONE 5 MG Tablet 10 MG PO ×4 (03:55→21:28)
[2019-06-08] MEDS: Albuterol 2.5 MG/3 ML VIAL.NEB. INHALATION (05:11)
[2019-06-08] MEDS: Metoprolol Tartrate 50 MG Tablet PO ×3 (06:34→20:58)
[2019-06-08] MEDS: Acetaminophen 500 MG Tablet 1000 MG PO (06:34)
[2019-06-08] MEDS: Pantoprazole Sodium 40 MG Tablet PO (06:34)
[2019-06-08] MEDS: Senna/Docusate Sodium 1 Tablet 2 TABLET PO (06:34)
[2019-06-08] MEDS: SODIUM CHLORIDE 1 GM TABLET PO (06:34)
[2019-06-08] MEDS: Menthol/Lanolin/Calamine/Znox 113 GM Tube 1 APPLIC TOPICAL ×2 (06:36→17:18)
[2019-06-08] MEDS: Nystatin Powder 15gm Bottle 1 APPLIC TOPICAL ×2 (06:36→21:00)
[2019-06-08] MEDS: amLODIPine 2.5 MG Tablet PO (06:36)
[2019-06-08] MEDS: Ipratropium/Albuterol Sulfate 3 ML AMPUL.NEB INHALATION ×3 (06:40→19:10)
[2019-06-08] MEDS: Budesonide Respules 0.5 MG/2 ML AMPUL.NEB. INHALATION ×2 (06:40→19:10)
[2019-06-08] MEDS: Ondansetron ODT 4 MG Tablet PO ×2 (08:21→17:16)
[2019-06-08] MEDS: LORazepam 0.5 MG Tablet PO (08:21)
[2019-06-08] MEDS: Cefdinir 300 MG Capsule PO ×2 (08:56→17:15)
[2019-06-08] MEDS: Multivitamins,Ther W-Minerals Tablet 1 TABLET PO (08:56)
[2019-06-08] MEDS: Aspirin 81 MG TAB.CHEW PO ×2 (08:56→17:16)
[2019-06-08] MEDS: Gabapentin 600 MG Tablet PO ×3 (08:56→17:15)
[2019-06-08] MEDS: Azithromycin 250 MG Tablet PO (11:11)
[2019-06-08] MEDS: Tamsulosin HCl 0.4 MG Capsule PO (17:16)
[2019-06-08] MEDS: Atorvastatin Calcium 20 MG Tablet PO (20:58)
[2019-06-08] MEDS: Mirtazapine 15 MG Tablet PO (20:59)
[2019-06-08] MEDS: MELATONIN 10 MG TABLET PO (20:59)
[2019-06-09] VITALS (7 sets, daily range): BP systolic 134–154; BP diastolic 66–81; PULSE 80–97; RESP 18–20; TEMP 36.6; O2SAT 93–98
[2019-06-09] MEDS: Ondansetron ODT 4 MG Tablet PO ×2 (03:20→22:08)
[2019-06-09] MEDS: oxyCODONE 5 MG Tablet 10 MG PO ×5 (03:21→22:09)
[2019-06-09] MEDS: Nystatin Powder 15gm Bottle 1 APPLIC TOPICAL ×2 (06:26→20:59)
[2019-06-09] MEDS: SODIUM CHLORIDE 1 GM TABLET PO (06:26)
[2019-06-09] MEDS: Pantoprazole Sodium 40 MG Tablet PO (06:26)
[2019-06-09] MEDS: Menthol/Lanolin/Calamine/Znox 113 GM Tube 1 APPLIC TOPICAL ×2 (06:26→17:51)
[2019-06-09] MEDS: Cefdinir 300 MG Capsule PO ×2 (06:27→17:50)
[2019-06-09] MEDS: amLODIPine 2.5 MG Tablet PO (06:27)
[2019-06-09] MEDS: Metoprolol Tartrate 50 MG Tablet PO ×3 (06:44→20:55)
[2019-06-09] MEDS: LORazepam 0.5 MG Tablet PO ×2 (06:53→15:16)
[2019-06-09] MEDS: Gabapentin 600 MG Tablet PO ×3 (08:06→17:50)
[2019-06-09] MEDS: Multivitamins,Ther W-Minerals Tablet 1 TABLET PO (08:07)
[2019-06-09] MEDS: Aspirin 81 MG TAB.CHEW PO ×2 (08:07→17:51)
[2019-06-09] MEDS: Budesonide Respules 0.5 MG/2 ML AMPUL.NEB. INHALATION ×2 (08:15→18:56)
[2019-06-09] MEDS: Ipratropium/Albuterol Sulfate 3 ML AMPUL.NEB INHALATION ×3 (08:15→18:56)
[2019-06-09 08:42] LABS: Absolute Lymphocyte Count 0.78 X10^3/uL (0.83-4.51); Absolute Neutrophil Count 3.4 X10^3/uL (2.0-7.7); Basophil# 0.01 X10^3/uL; Basophil% 0.2 % (0-1); Eosinophil# 0.31 X10^3/uL; Eosinophils% 5.8 % (0-5); Hematocrit 27.6 % (37-47); Hemoglobin 8.8 g/dL (12.0-15.0); Lymphocyte # 0.78 X10^3/ul (4.0); Lymphocyte % 14.5 % (19-41); Mean Corp Hgb Conc 31.9 g/dL (32-36); Mean Corpuscular Hgb 29.2 pg (27.0-32.0); Mean Corpuscular Volume 91.7 fL (81-99); Mean Platelet Vol. 9.7 fl (6.2-12.0); Monocyte# 0.86 X10^3/uL; NRBC Flagged by Analyzer 0 % (0-5); Neutrophil # 3.38 X10^3/uL (2.7-7.7); Neutrophil % 62.6 % (47-70); POSITIVE COUNT YES; Platelet Count 289 K/mm3 (150-450); RBC Distribution Width CV 13.8 % (11.6-14.6); RBC Distribution Width SD 46.3 fl (35.1-43.9); Red Blood Count 3.01 M/mm3 (4.2-5.4); White Blood Count 5.4 K/mm3 (4.4-11.0)
[2019-06-09 09:03] LABS: Differential Indicated SCAN CRITERIA MET
[2019-06-09 09:20] LABS: Platelet Morphology LARGE
[2019-06-09] MEDS: Tuberculin,Purif.prot.deriv. 50 TU/ML Vial 5 ML ID (12:04)
[2019-06-09] MEDS: Tamsulosin HCl 0.4 MG Capsule PO (17:51)
[2019-06-09] MEDS: Acetaminophen 500 MG Tablet 1000 MG PO (20:50)
[2019-06-09] MEDS: Atorvastatin Calcium 20 MG Tablet PO (20:55)
[2019-06-09] MEDS: MELATONIN 10 MG TABLET PO (22:09)
[2019-06-09] MEDS: Mirtazapine 15 MG Tablet PO (22:09)
[2019-06-10] VITALS (8 sets, daily range): BP systolic 105–137; BP diastolic 54–65; PULSE 66–100; RESP 18; TEMP 36.7; O2SAT 97–99
[2019-06-10] MEDS: oxyCODONE 5 MG Tablet 10 MG PO ×5 (03:34→22:33)
[2019-06-10] MEDS: Ondansetron ODT 4 MG Tablet PO (06:19)
[2019-06-10] MEDS: Nystatin Powder 15gm Bottle 1 APPLIC TOPICAL ×2 (06:23→22:34)
[2019-06-10] MEDS: Menthol/Lanolin/Calamine/Znox 113 GM Tube 1 APPLIC TOPICAL ×2 (06:23→16:28)
[2019-06-10] MEDS: Pantoprazole Sodium 40 MG Tablet PO (06:24)
[2019-06-10] MEDS: amLODIPine 2.5 MG Tablet PO (06:24)
[2019-06-10] MEDS: Metoprolol Tartrate 50 MG Tablet PO ×2 (06:24→22:34)
[2019-06-10] MEDS: Cefdinir 300 MG Capsule PO ×2 (06:24→16:27)
[2019-06-10] MEDS: SODIUM CHLORIDE 1 GM TABLET PO (06:24)
[2019-06-10] MEDS: LORazepam 0.5 MG Tablet PO ×2 (06:25→18:12)
[2019-06-10] MEDS: Acetaminophen 500 MG Tablet 1000 MG PO ×2 (06:25→12:31)
[2019-06-10] MEDS: Ipratropium/Albuterol Sulfate 3 ML AMPUL.NEB INHALATION ×3 (07:24→19:00)
[2019-06-10] MEDS: Budesonide Respules 0.5 MG/2 ML AMPUL.NEB. INHALATION ×2 (07:24→19:00)
[2019-06-10] MEDS: Multivitamins,Ther W-Minerals Tablet 1 TABLET PO (09:27)
[2019-06-10] MEDS: Iron Polysaccharide Complex 150 MG CAPSULE PO (09:27)
[2019-06-10] MEDS: Gabapentin 600 MG Tablet PO ×3 (09:27→16:27)
[2019-06-10] MEDS: Aspirin 81 MG TAB.CHEW PO ×2 (09:30→16:27)
--- NOTE | 2019-06-10 11:07 | CASEMGMT ---
Social Work IDT met with patient and brother via conference call for care plan meeting. Discussed patient's progress in therapy. Pt is min assist for bed mobility, stand pivot transfer from bed to chair at CGA to min assist, from chair to bed at mod assist. Pt's UE dressing is mod assist, does not wear pants to address LE dressing. Pt receiving 1:1 visits from activities. Pt is able to participate in self-directed activities. Pt is on a regular diet, intake 75-100%, refused med pass so that is discontinued. Pt is out of isolation 06/14. Pt has been started on ATB for UTI. Explained insurance with [employer] 06/09. Brother at home who can assist pt with ADLs. Will continue to follow. AYANA Mueller BOTTOM BLEACHER
--- NOTE | 2019-06-10 14:06 | NURSING ---
Addendum entered by Remedios Waters 06/10/19 14:13: Resident was using material handler 1st shift and her finger got caught on it. Skin tear on right 5th digit. Pressure bandage applied at this time. Resident tolerated well. Original Note: Resident was using material handler 1st shift and her finger got caught on it. Skin tear on right ring finger. Pressure bandage applied at this time. Resident tolerated well.
[2019-06-10] MEDS: Tamsulosin HCl 0.4 MG Capsule PO (16:27)
[2019-06-10] MEDS: Mirtazapine 15 MG Tablet PO (22:33)
[2019-06-10] MEDS: MELATONIN 10 MG TABLET PO (22:34)
[2019-06-10] MEDS: Atorvastatin Calcium 20 MG Tablet PO (22:34)
[2019-06-11] VITALS (9 sets, daily range): BP systolic 127–143; BP diastolic 64–75; PULSE 70–91; RESP 18–20; TEMP 36.3; O2SAT 96–100
[2019-06-11] MEDS: Albuterol 2.5 MG/3 ML VIAL.NEB. INHALATION (00:10)
[2019-06-11] MEDS: Cefdinir 300 MG Capsule PO (07:03)
[2019-06-11] MEDS: Pantoprazole Sodium 40 MG Tablet PO (07:03)
[2019-06-11] MEDS: SODIUM CHLORIDE 1 GM TABLET PO (07:03)
[2019-06-11] MEDS: oxyCODONE 5 MG Tablet 10 MG PO ×4 (07:03→21:07)
[2019-06-11] MEDS: amLODIPine 2.5 MG Tablet PO (07:03)
[2019-06-11] MEDS: Menthol/Lanolin/Calamine/Znox 113 GM Tube 1 APPLIC TOPICAL ×2 (07:04→16:18)
[2019-06-11] MEDS: Nystatin Powder 15gm Bottle 1 APPLIC TOPICAL ×2 (07:04→21:08)
[2019-06-11] MEDS: Metoprolol Tartrate 50 MG Tablet PO ×3 (07:05→21:07)
[2019-06-11] MEDS: Ipratropium/Albuterol Sulfate 3 ML AMPUL.NEB INHALATION ×3 (07:25→19:25)
[2019-06-11] MEDS: Budesonide Respules 0.5 MG/2 ML AMPUL.NEB. INHALATION ×2 (07:25→19:25)
[2019-06-11] MEDS: Gabapentin 600 MG Tablet PO ×3 (08:24→16:16)
[2019-06-11] MEDS: Multivitamins,Ther W-Minerals Tablet 1 TABLET PO (08:24)
[2019-06-11] MEDS: Iron Polysaccharide Complex 150 MG CAPSULE PO (08:24)
[2019-06-11] MEDS: Aspirin 81 MG TAB.CHEW PO ×2 (08:24→16:17)
[2019-06-11] MEDS: LORazepam 0.5 MG Tablet PO ×2 (12:15→21:07)
[2019-06-11] MEDS: Acetaminophen 500 MG Tablet 1000 MG PO (15:11)
[2019-06-11] MEDS: Tamsulosin HCl 0.4 MG Capsule PO (16:17)
--- NOTE | 2019-06-11 17:24 | NURSING ---
28 [place] removed from RT hip & 10 steri strips placed. incision approximated. no drng noted. pt tolerated well
[2019-06-11] MEDS: MELATONIN 10 MG TABLET PO (21:07)
[2019-06-11] MEDS: Mirtazapine 15 MG Tablet PO (21:07)
[2019-06-11] MEDS: Atorvastatin Calcium 20 MG Tablet PO (21:07)
[2019-06-12] VITALS (10 sets, daily range): BP systolic 110–164; BP diastolic 58–73; PULSE 74–94; RESP 16–20; TEMP 36.5–36.9; O2SAT 94–97
[2019-06-12] MEDS: oxyCODONE 5 MG Tablet 10 MG PO ×5 (02:47→22:00)
[2019-06-12] MEDS: Albuterol 2.5 MG/3 ML VIAL.NEB. INHALATION (03:00)
[2019-06-12] MEDS: Metoprolol Tartrate 50 MG Tablet PO ×3 (06:34→22:01)
[2019-06-12] MEDS: Pantoprazole Sodium 40 MG Tablet PO (06:34)
[2019-06-12] MEDS: amLODIPine 2.5 MG Tablet PO (06:34)
[2019-06-12] MEDS: SODIUM CHLORIDE 1 GM TABLET PO (06:34)
[2019-06-12] MEDS: Nystatin Powder 15gm Bottle 1 APPLIC TOPICAL ×2 (06:47→21:30)
[2019-06-12] MEDS: Menthol/Lanolin/Calamine/Znox 113 GM Tube 1 APPLIC TOPICAL ×2 (06:47→17:15)
[2019-06-12] MEDS: Budesonide Respules 0.5 MG/2 ML AMPUL.NEB. INHALATION (07:25)
[2019-06-12] MEDS: Ipratropium/Albuterol Sulfate 3 ML AMPUL.NEB INHALATION ×3 (07:45→18:40)
[2019-06-12] MEDS: Gabapentin 600 MG Tablet PO ×3 (09:03→17:15)
[2019-06-12] MEDS: Multivitamins,Ther W-Minerals Tablet 1 TABLET PO (09:04)
[2019-06-12] MEDS: Aspirin 81 MG TAB.CHEW PO ×2 (09:04→17:15)
[2019-06-12] MEDS: LORazepam 0.5 MG Tablet PO ×2 (09:04→19:59)
[2019-06-12] MEDS: Iron Polysaccharide Complex 150 MG CAPSULE PO (09:04)
--- NOTE | 2019-06-12 13:34 | CPS ---
RX STOPPED FOR PT TO USE BEDSIDE COMMODE. PT'S LOADER OPERATOR/GROUND LEADER INSTRUCTED TO TURN FLOWMETER BACK ON ONCE PT'S BACK IN BED. PT'S LOADER OPERATOR/GROUND LEADER'S WERE INSTRUCTED TO CALL THIS THERAPIST IF UNABLE TO RESTART PT'S AEROSOL RX.
--- NOTE | 2019-06-12 13:38 | MDS.RN ---
Information for the mds was obtained from review of the clinical record, interview of resident, staff, and direct observation of resident's care.
[2019-06-12] MEDS: Ondansetron ODT 4 MG Tablet PO (14:12)
[2019-06-12] MEDS: Acetaminophen 500 MG Tablet 1000 MG PO ×2 (14:27→21:59)
[2019-06-12] MEDS: Tamsulosin HCl 0.4 MG Capsule PO (17:15)
[2019-06-12] MEDS: MELATONIN 10 MG TABLET PO (22:01)
[2019-06-12] MEDS: Mirtazapine 15 MG Tablet PO (22:01)
[2019-06-12] MEDS: Atorvastatin Calcium 20 MG Tablet PO (22:02)
[2019-06-13] VITALS (7 sets, daily range): BP systolic 92–155; BP diastolic 62–98; PULSE 66–88; RESP 16–18; TEMP 36.3; O2SAT 99
[2019-06-13] MEDS: Ondansetron ODT 4 MG Tablet PO ×2 (03:29→11:43)
[2019-06-13] MEDS: oxyCODONE 5 MG Tablet 10 MG PO ×5 (03:30→23:57)
[2019-06-13] MEDS: Nystatin Powder 15gm Bottle 1 APPLIC TOPICAL ×2 (03:34→20:36)
[2019-06-13] MEDS: Menthol/Lanolin/Calamine/Znox 113 GM Tube 1 APPLIC TOPICAL ×2 (03:34→18:22)
[2019-06-13] MEDS: amLODIPine 2.5 MG Tablet PO (06:01)
[2019-06-13] MEDS: Pantoprazole Sodium 40 MG Tablet PO (06:01)
[2019-06-13] MEDS: SODIUM CHLORIDE 1 GM TABLET PO (06:01)
[2019-06-13] MEDS: Metoprolol Tartrate 50 MG Tablet PO ×2 (06:01→14:21)
[2019-06-13] MEDS: Budesonide Respules 0.5 MG/2 ML AMPUL.NEB. INHALATION ×2 (07:03→19:19)
[2019-06-13] MEDS: Ipratropium/Albuterol Sulfate 3 ML AMPUL.NEB INHALATION ×3 (07:03→19:19)
[2019-06-13] MEDS: Aspirin 81 MG TAB.CHEW PO ×2 (08:23→18:23)
[2019-06-13] MEDS: Multivitamins,Ther W-Minerals Tablet 1 TABLET PO (08:23)
[2019-06-13] MEDS: Iron Polysaccharide Complex 150 MG CAPSULE PO (08:23)
[2019-06-13] MEDS: Gabapentin 600 MG Tablet PO ×3 (08:23→18:22)
[2019-06-13] MEDS: LORazepam 0.5 MG Tablet PO ×2 (08:43→20:33)
[2019-06-13] MEDS: Acetaminophen 500 MG Tablet 1000 MG PO ×2 (08:47→18:31)
--- NOTE | 2019-06-13 11:38 | NURSING ---
Resident has been in contact with family today.
[2019-06-13] MEDS: Tamsulosin HCl 0.4 MG Capsule PO (18:23)
[2019-06-13] MEDS: Mirtazapine 15 MG Tablet PO (20:34)
[2019-06-13] MEDS: Atorvastatin Calcium 20 MG Tablet PO (20:34)
[2019-06-13] MEDS: MELATONIN 10 MG TABLET PO (20:34)
[2019-06-13 23:46] LABS: Bedside Glucose 86 mg/dL (70-110)
[2019-06-14] VITALS (7 sets, daily range): BP systolic 148–186; BP diastolic 78–87; PULSE 76–89; RESP 18; TEMP 36.7; O2SAT 95–98
[2019-06-14] MEDS: Pantoprazole Sodium 40 MG Tablet PO (06:15)
[2019-06-14] MEDS: oxyCODONE 5 MG Tablet 10 MG PO ×4 (06:15→20:18)
[2019-06-14] MEDS: Metoprolol Tartrate 50 MG Tablet PO ×3 (06:15→20:20)
[2019-06-14] MEDS: SODIUM CHLORIDE 1 GM TABLET PO (06:16)
[2019-06-14] MEDS: amLODIPine 2.5 MG Tablet PO (06:16)
[2019-06-14] MEDS: Menthol/Lanolin/Calamine/Znox 113 GM Tube 1 APPLIC TOPICAL ×2 (06:19→15:01)
[2019-06-14] MEDS: Nystatin Powder 15gm Bottle 1 APPLIC TOPICAL ×2 (06:20→20:19)
[2019-06-14] MEDS: Budesonide Respules 0.5 MG/2 ML AMPUL.NEB. INHALATION ×2 (07:25→19:20)
[2019-06-14] MEDS: Ipratropium/Albuterol Sulfate 3 ML AMPUL.NEB INHALATION ×3 (07:25→19:20)
[2019-06-14] MEDS: Gabapentin 600 MG Tablet PO ×3 (08:05→16:34)
[2019-06-14] MEDS: Aspirin 81 MG TAB.CHEW PO ×2 (08:05→16:28)
[2019-06-14] MEDS: Iron Polysaccharide Complex 150 MG CAPSULE PO (08:05)
[2019-06-14] MEDS: Multivitamins,Ther W-Minerals Tablet 1 TABLET PO (08:06)
[2019-06-14] MEDS: Acetaminophen 500 MG Tablet 1000 MG PO (08:09)
[2019-06-14] MEDS: Tamsulosin HCl 0.4 MG Capsule PO (16:28)
[2019-06-14] MEDS: Sodium Chloride 0.65% 1 SPRAY SPRAY.BTL NASAL (16:29)
[2019-06-14] MEDS: LORazepam 0.5 MG Tablet PO (17:56)
[2019-06-14] MEDS: Atorvastatin Calcium 20 MG Tablet PO (20:20)
[2019-06-14] MEDS: MELATONIN 10 MG TABLET PO (20:20)
[2019-06-14] MEDS: Mirtazapine 15 MG Tablet PO (20:21)
[2019-06-15] VITALS (8 sets, daily range): BP systolic 120–171; BP diastolic 65–83; PULSE 72–89; RESP 20; TEMP 36.6; O2SAT 95–96
[2019-06-15] MEDS: oxyCODONE 5 MG Tablet 10 MG PO ×5 (03:23→23:05)
[2019-06-15] MEDS: Menthol/Lanolin/Calamine/Znox 113 GM Tube 1 APPLIC TOPICAL ×2 (04:57→17:37)
[2019-06-15] MEDS: SODIUM CHLORIDE 1 GM TABLET PO (04:57)
[2019-06-15] MEDS: Pantoprazole Sodium 40 MG Tablet PO (04:57)
[2019-06-15] MEDS: amLODIPine 2.5 MG Tablet PO (04:58)
[2019-06-15] MEDS: Metoprolol Tartrate 50 MG Tablet PO ×3 (04:58→22:17)
[2019-06-15] MEDS: Nystatin Powder 15gm Bottle 1 APPLIC TOPICAL ×2 (04:59→22:18)
[2019-06-15] MEDS: Ipratropium/Albuterol Sulfate 3 ML AMPUL.NEB INHALATION ×3 (07:20→19:52)
[2019-06-15] MEDS: Budesonide Respules 0.5 MG/2 ML AMPUL.NEB. INHALATION (07:20)
--- NOTE | 2019-06-15 08:17 | RAD_ITS ---
STUDY: X-RAY - LEFT SHOULDER REASON FOR EXAM: Female, 69 years old. Known humerus fracture, more pain to shoulder since yesterday after using arm TECHNIQUE: 2 view(s) of the shoulder. COMPARISON: None. FINDINGS: There is moderate degenerative arthrosis of the glenohumeral articulation. Normal acromioclavicular joint. Normal acromion. There is a healed impacted fracture of the surgical neck of the proximal humerus. The soft tissue structures are unremarkable. Normal visualized pulmonary apex. RAD/Shoulder min 2 Views IMPRESSION: Healed impacted fracture of the surgical neck of the proximal humerus. Electronically Signed: Luis Enrique Colon, at 15:17 EDT , Service support ,
--- NOTE | 2019-06-15 08:18 | NURSING ---
Patient states that last night during supper she was leaning on bedside table when the table moved and she hit her left shoulder hard on table. Patient states that she has had increased pain to that shoulder since. Dr. Huber notified of this. New orders given.
[2019-06-15] MEDS: Ondansetron ODT 4 MG Tablet PO ×2 (09:15→20:10)
[2019-06-15] MEDS: LORazepam 0.5 MG Tablet PO ×2 (09:15→17:35)
[2019-06-15] MEDS: Gabapentin 600 MG Tablet PO ×3 (10:25→17:36)
[2019-06-15] MEDS: Multivitamins,Ther W-Minerals Tablet 1 TABLET PO (10:25)
[2019-06-15] MEDS: Iron Polysaccharide Complex 150 MG CAPSULE PO (10:25)
[2019-06-15] MEDS: Aspirin 81 MG TAB.CHEW PO ×2 (10:26→17:36)
[2019-06-15] MEDS: Acetaminophen 500 MG Tablet 1000 MG PO ×2 (12:30→18:30)
[2019-06-15] MEDS: Tamsulosin HCl 0.4 MG Capsule PO (17:36)
[2019-06-15] MEDS: Mirtazapine 15 MG Tablet PO (22:17)
[2019-06-15] MEDS: MELATONIN 10 MG TABLET PO (22:17)
[2019-06-15] MEDS: Atorvastatin Calcium 20 MG Tablet PO (22:17)
[2019-06-16] VITALS (7 sets, daily range): BP systolic 114–164; BP diastolic 56–80; PULSE 68–81; RESP 16–22; TEMP 36.6–36.8; O2SAT 94–98
[2019-06-16] MEDS: Metoprolol Tartrate 50 MG Tablet PO ×3 (05:06→22:12)
[2019-06-16] MEDS: oxyCODONE 5 MG Tablet 10 MG PO ×4 (05:06→19:44)
[2019-06-16] MEDS: Acetaminophen 500 MG Tablet 1000 MG PO ×2 (05:06→17:06)
[2019-06-16] MEDS: Pantoprazole Sodium 40 MG Tablet PO (05:07)
[2019-06-16] MEDS: Menthol/Lanolin/Calamine/Znox 113 GM Tube 1 APPLIC TOPICAL ×2 (05:09→16:57)
[2019-06-16] MEDS: Nystatin Powder 15gm Bottle 1 APPLIC TOPICAL ×2 (05:09→22:13)
[2019-06-16 06:54] LABS: Absolute Lymphocyte Count 0.76 X10^3/uL (0.83-4.51); Absolute Neutrophil Count 2.3 X10^3/uL (2.0-7.7); Basophil# 0.03 X10^3/uL; Basophil% 0.8 % (0-1); Eosinophil# 0.16 X10^3/uL; Eosinophils% 4.2 % (0-5); Hematocrit 26.7 % (37-47); Hemoglobin 8.2 g/dL (12.0-15.0); Lymphocyte # 0.76 X10^3/ul (4.0); Lymphocyte % 19.8 % (19-41); Mean Corp Hgb Conc 30.7 g/dL (32-36); Mean Corpuscular Hgb 30.3 pg (27.0-32.0); Mean Corpuscular Volume 98.5 fL (81-99); Mean Platelet Vol. 9.2 fl (6.2-12.0); Monocyte# 0.55 X10^3/uL; Monocyte% 14.4 % (0-10); NRBC Flagged by Analyzer 0 % (0-5); Platelet Count 236 K/mm3 (150-450); RBC Distribution Width CV 14.3 % (11.6-14.6); RBC Distribution Width SD 50.7 fl (35.1-43.9); Red Blood Count 2.71 M/mm3 (4.2-5.4); White Blood Count 3.8 K/mm3 (4.4-11.0)
[2019-06-16 07:03] LABS: Anion Gap 3 (5-15); BUN 8 mg/dL (7-18); BUN/Creat Ratio 13.8 RATIO (10-20); Calcium,Total 8.3 mg/dL (8.5-10.1); Chloride 100 mmol/L (98-107); Creatinine, Serum 0.58 mg/dL (0.55-1.02); EST Glomerular Filtration Rate 111 mL/min (>60); Est Glom Filt Rate - Afr Amer 134 mL/min (>60); Estimated Creatinine Clearance 47.14 ml/min; Glucose 96 mg/dL (74-106); Sodium Level 135 mmol/L (136-145)
[2019-06-16] MEDS: Ipratropium/Albuterol Sulfate 3 ML AMPUL.NEB INHALATION ×2 (07:18→21:04)
[2019-06-16] MEDS: Aspirin 81 MG TAB.CHEW PO ×2 (08:51→16:57)
[2019-06-16] MEDS: Gabapentin 600 MG Tablet PO ×3 (08:51→16:56)
[2019-06-16] MEDS: Multivitamins,Ther W-Minerals Tablet 1 TABLET PO (08:52)
[2019-06-16] MEDS: Iron Polysaccharide Complex 150 MG CAPSULE PO (08:52)
[2019-06-16] MEDS: SODIUM CHLORIDE 1 GM TABLET PO (08:53)
[2019-06-16] MEDS: LORazepam 0.5 MG Tablet PO (09:02)
[2019-06-16] MEDS: amLODIPine 2.5 MG Tablet PO (09:03)
[2019-06-16] MEDS: Sodium Chloride 0.65% 1 SPRAY SPRAY.BTL NASAL ×2 (09:04→13:23)
--- NOTE | 2019-06-16 09:26 | NURSING ---
Addendum entered by Kayleigh Yoder 06/16/19 09:27: recheck h+h 06/17 Original Note: dr. farooq aware of labs.
[2019-06-16] MEDS: Albuterol Sulfate 8 gm Inhaler 2 PUFF INHALATION (16:56)
[2019-06-16] MEDS: Tamsulosin HCl 0.4 MG Capsule PO (16:57)
--- NOTE | 2019-06-16 18:40 | DCINST_ITS ---
- Discharge Diagnoses Current Active Problems: Current Active and Chronic Problems (Last Updated 11/05/18 @ 22:44 by Yumi Munroe) Debility (Acute) Elevated troponin (Acute) Acute kidney injury (Acute) Chronic diastolic (congestive) heart failure (Chronic) Seizure disorder (Chronic) Hypertension (Chronic) Diabetic polyneuropathy (Chronic) GERD (gastroesophageal reflux disease) (Chronic) Appetite loss (Chronic) You will use the following diet at home:: No restrictions, Regular Your food should be the consistency of: Regular Your liquids should be the consistency of: Regular/Thin Discharge Activity: Return to Normal Activity, May Shower, Use Walker Weight Bearing Status: Weight bearing as tolerated Call your doctor if you observe: Fever of 101 or Higher, Inability to urinate, Inability to have a bowel movement, Shortness of breath, Chest pain, Uncontrolled pain Allergies/Adverse Reactions: Allergies levofloxacin [From Levaquin] Allergy (Verified 05/29/19 10:10) Other Red streak up her arm and itiching pregabalin [From Lyrica] Allergy (Verified 05/29/19 10:10) Other Sulfa (Sulfonamide Antibiotics) Allergy (Verified 05/29/19 10:10) Anaphylaxis duloxetine [From Cymbalta] Adverse Reaction (Verified 05/29/19 10:10) Vomiting sertraline HCl [From Zoloft] Adverse Reaction (Verified 05/29/19 10:10) MAKES ME CRAZY makes me crazy Medications to take at Discharge Albuterol IH (ProAir) [Proair Hfa] 2 puff INHALATION Q6H PRN PRN 04/05/17 Gabapentin [Neurontin] 600 mg PO TIDCM 04/05/17 Ipratropium/Albuterol Sulfate [Duoneb] 3 ml INHALATION Q6HWA.RT 04/05/17 Sodium Chloride 1 gm PO DAILY 04/05/17 Budesonide Aerosol [Pulmicort Respules] 0.5 mg INHALATION BID 08/21/17 Multivitamins,Ther W-Minerals [Multivitamin With Minerals (BKC)] 1 tab PO DAILYCM 08/31/17 Pantoprazole Sodium 40 mg PO DAILY #30 tablet.dr 09/17/17 atorvastatin 20 mg tablet 20 mg PO QDAY #90 tab 10/18/17 metoprolol tartrate 50 mg tablet 50 mg PO TID tab 10/18/17 Amlodipine [Norvasc] 2.5 mg PO DAILY 05/29/19 Melatonin 10 mg PO QHS 05/29/19 Mirtazapine [Remeron] 15 mg PO QHS 05/29/19 Albuterol Aerosols [Ventolin Aerosols] 2.5 mg INHALATION Q2H PRN PRN vial.neb. 06/01/19 Oxycodone [Oxyir] 10 mg PO Q4H PRN PRN 06/01/19 Acetaminophen [Tylenol] 1,000 mg PO Q6H PRN PRN tablet 06/16/19 Aspirin [Aspirin, Baby] 81 mg PO BID #20 tab.chew 06/16/19 Iron Polysaccharide Complex [Ferrex 150] 150 mg PO DAILYCM #30 cap 06/16/19 Menthol/Lanolin/Calamine/Znox [Calmoseptine Ointment] 1 applic TOPICAL BID tube 06/16/19 Nystatin Powder [Mycostatin Powder] 1 applic TOPICAL 0600,2200 bottle 06/16/19 Ondansetron [Zofran Odt] 4 mg PO Q8H PRN PRN #21 tab 06/16/19 Oxycodone [Oxyir] 10 mg PO Q4H PRN PRN 7 Days #42 tablet 06/16/19 Sodium Chloride 0.65% [[place] Nasal [place]] 1 spray NASAL TID PRN PRN spray.btl 06/16/19 Tamsulosin HCl [Flomax] 0.4 mg PO DAILY@1730 #30 cap 06/16/19 The following prescriptions were given: Aspirin [Aspirin, Baby] 81 mg PO BID #20 tab.chew Transmission Status: Pending to [facility] Iron Polysaccharide Complex [Ferrex 150] 150 mg PO DAILYCM #30 cap Transmission Status: Pending to [facility] Tamsulosin HCl [Flomax] 0.4 mg PO DAILY@1730 #30 cap Transmission Status: Pending [facility] [address] Oxycodone [Oxyir] 10 mg PO Q4H PRN PRN 7 Days #42 tablet PRN Reason: Pain Score 4-10/10 Transmission Status: Received by [facility]ANS GARCIAMaria E [facility] [address] Ondansetron [Zofran Odt] 4 mg PO Q8H PRN PRN #21 tab PRN Reason: NAUSEA Transmission Status: Pending to [facility] Primary Care Physician: Irasema Jonas MD [Primary Care Provider] - Please follow up with your Primary Care Physician in: 1 week. Test Results: Test results from this visit will be discussed in further detail at your follow- up appointment, if applicable. Please Follow Up With: Dr. Millan When: Saturday Please Follow Up With: Abhishek Winters MD When: 2 weeks. Proposed Discharge Date: 06/18/19
--- NOTE | 2019-06-16 18:42 | PCM.DC.SUM ---
Discharge Date and Diagnosis - Problem List Patient Problems: Active and Suspected Problems (Last Updated 11/05/18 @ 22:44 by Yumi Munroe) Debility (Acute) Elevated troponin (Acute) Acute kidney injury (Acute) Date of Admission: 06/01/19 Date of Discharge: 06/18/19 - Primary Discharge Diagnosis Active and Suspected Problems (Last Updated 11/05/18 @ 22:44 by Yumi Munroe) Debility (Acute) Elevated troponin (Acute) Acute kidney injury (Acute) - Secondary Discharge Diagnosis Chronic Problems (Last Updated 11/05/18 @ 22:44 by Yumi Munroe) CHF (congestive heart failure) (Chronic) COPD (chronic obstructive pulmonary disease) (Chronic) Seizures (Chronic) Diabetes (Chronic) Hyponatremia (Chronic) Chronic diastolic (congestive) heart failure (Chronic) Seizure disorder (Chronic) Hypertension (Chronic) Diabetic polyneuropathy (Chronic) GERD (gastroesophageal reflux disease) (Chronic) Appetite loss (Chronic) Essential (primary) hypertension (Chronic) Hyperlipidemia (Chronic) Peripheral arterial occlusive disease (Chronic) Acute on chronic congestive heart failure (Chronic) Hospital Course and Treatment Imaging Results: 06/02/19 08:52 Diet: Regular Diet Is pt able to select menu?: Yes Clinical Impression(s) from Imaging Studies Chest X-Ray 06/03/19 21:24 IMPRESSION: Small ill-defined infiltrates of the right midlung field and left lung base. These are new in the interval. Small left-sided pleural effusion, also new in the interval. Suspected impacted surgical neck fracture of the left humerus, not previously seen. Specific views of the left shoulder joint are recommended for further evaluation. Calcified plaques in the aortic arch. Electronically Signed: Raoul Dempsey MD at 21:57 EDT , Service support , Shoulder X-Ray 06/15/19 08:17 IMPRESSION: Healed impacted fracture of the surgical neck of the proximal humerus. Electronically Signed: Luis Enrique Colon, at 15:17 EDT , Service support , Labs (Last 48 Hours) 06/16/19 06/16/19 06:25 06:25 WBC 3.8 L RBC 2.71 L Hgb 8.2 L Hct 26.7 L MCV 98.5 MCH 30.3 MCHC 30.7 L RDW Std Deviation 50.7 H RDW Coeff of Reina 14.3 Plt Count 236 MPV 9.2 Immature Gran % (Auto) 0.800 Neut % (Auto) 60.0 Lymph % (Auto) 19.8 Lares % (Auto) 14.4 H Eos % (Auto) 4.2 Baso % (Auto) 0.8 Absolute Neuts (auto) 2.3 Absolute Lymphs (auto) 0.76 L Nucleated RBC % 0 Sodium 135 L Potassium 4.0 Chloride 100 Carbon Dioxide 32.0 Anion Gap 3 L BUN 8 Creatinine 0.58 Estim Creat Clear Calc 47.14 Est GFR (MDRD) Af Amer 134 Est GFR (MDRD) Non-Af 111 BUN/Creatinine Ratio 13.8 Glucose 96 Calcium 8.3 L Operations: None Procedures: None Summary of Care Provided: The patient is a 69 year old Female with below past medical history hospitalized for left hip fracture, left humerus fracture, underwent left hip cemented hemiarthroplasty with Dr. Abhishek Winters 05/29/2019, complicated by postoperative anemia, elevated troponin, acute kidney injury, admitted to TCU with debility, here for rehabilitation, strengthening, prior to discharge home with family. 06/03/2019 Resident treated for pneumonia with Rocephin/Zithromax, resolved. Aspirin 81MG twice daily for prophylaxis thru 06/28/2019, then stop Aspirin, restart Plavix 75MG daily. Discharge home with family, [facility] PT/OT/SN. Patient Problems: Active and Suspected Problems (Last Updated 11/05/18 @ 22:44 by Yumi Munroe) Debility (Acute) Elevated troponin (Acute) Acute kidney injury (Acute) - Physical Exam Vitals/I&O's: Vital Signs Temp Pulse Resp BP Pulse Ox 97.8 F 74 16 114/73 94 06/16/19 14:12 06/16/19 14:12 06/16/19 14:12 06/16/19 14:12 06/16/19 14:12 Oxygen Flow Rate (L/min) 3 Oxygen Delivery Method Room Air Weight: 55.792 kg Body Mass Index (BMI) 21.2 Finger Stick Blood Glucose 126 Intake and Output for Last 24 Hours 06/14/19 06/15/19 06/16/19 23:59 23:59 23:59 Intake Total 940 / 940 720 / 720 480 / 480 Balance 940 / 940 720 / 720 480 / 480 Laboratory Results 06/16/19 06:25: WBC 3.8 L, RBC 2.71 L, Hgb 8.2 L, Hct 26.7 L, MCV 98.5, MCH 30.3, MCHC 30.7 L, RDW Std Deviation 50.7 H, RDW Coeff of Reina 14.3, Plt Count 236, MPV 9.2, Immature Gran % (Auto) 0.800, Neut % (Auto) 60.0, Lymph % (Auto) 19.8, Lares % (Auto) 14.4 H, Eos % (Auto) 4.2, Baso % (Auto) 0.8, Absolute Neuts (auto) 2.3, Absolute Lymphs (auto) 0.76 L, Nucleated RBC % 0 06/16/19 06:25: Sodium 135 L, Potassium 4.0, Chloride 100, Carbon Dioxide 32.0, Anion Gap 3 L, BUN 8, Creatinine 0.58, Estim Creat Clear Calc 47.14, Est GFR (MDRD) Af Amer 134, Est GFR (MDRD) Non-Af 111, BUN/Creatinine Ratio 13.8, Glucose 96, Calcium 8.3 L Current Medications Acetaminophen (Tylenol) 1,000 mg PO Q6H PRN PRN PRN Reason: Pain Score 1-3/10 Last Admin: 06/16/19 17:06 Dose: 1,000 mg Documented by: Albuterol Sulfate (Ventolin Aerosols) 2.5 mg INHALATION Q2H PRN PRN PRN Reason: DYSPNEA Last Admin: 06/12/19 03:00 Dose: 2.5 mg Documented by: Albuterol Sulfate (Ventolin Hfa (Sp)) 2 puff INHALATION Q6H PRN PRN PRN Reason: SOB &/OR WHEEZING Last Admin: 06/16/19 16:56 Dose: 2 puff Documented by: Albuterol/Ipratropium (Duoneb) 3 ml INHALATION Q6HWA.RT WISAM Last Admin: 06/16/19 07:18 Dose: 3 ml Documented by: Amlodipine Besylate (Norvasc) 2.5 mg PO DAILY@0800 [facility] Last Admin: 06/16/19 09:03 Dose: 2.5 mg Documented by: Aspirin (Aspirin, Baby) 81 mg PO BIDCM [facility] Last Admin: 06/16/19 16:57 Dose: 81 mg Documented by: Atorvastatin Calcium (Lipitor) 20 mg PO QHS [facility] Last Admin: 06/15/19 22:17 Dose: 20 mg Documented by: Bisacodyl (Dulcolax) 10 mg PO DAILY PRN PRN PRN Reason: Constipation Budesonide (Pulmicort Aerosol) 0.5 mg INHALATION BID.RT [facility] Last Admin: 06/16/19 07:18 Dose: Not Given Documented by: Calamine/Phenol (Calmoseptine Ointment) 1 applic TOPICAL BID [facility]; Protocol Last Admin: 06/16/19 16:57 Dose: 1 applicatio Documented by: Gabapentin (Neurontin) 600 mg PO TIDCM [facility] Last Admin: 06/16/19 16:56 Dose: 600 mg Documented by: Sodium Chloride () 250 mls @ 15 mls/hr IV .[id number] PRN PRN Reason: SALINE FLUSH Last Infusion: 06/07/19 20:57 Dose: Infused Documented by: Lorazepam (Ativan) 0.5 mg PO Q6H PRN PRN PRN Reason: ANXIETY Last Admin: 06/16/19 09:02 Dose: 0.5 mg Documented by: Melatonin (Melatonin) 10 mg PO QHS [facility] Last Admin: 06/15/19 22:17 Dose: 10 mg Documented by: Metoprolol Tartrate (Lopressor (Beta Yany)) 50 mg PO TID [facility] Last Admin: 06/16/19 13:21 Dose: 50 mg Documented by: Mirtazapine (Remeron) 15 mg PO QHS [facility] Last Admin: 06/15/19 22:17 Dose: 15 mg Documented by: Multivitamins/Minerals ([facility]ivitamin With Minerals (Bkc)) [facility] Last Admin: 06/16/19 08:52 Dose: 1 tablet Documented by: Nystatin (Mycostatin Powder) 1 applic TOPICAL 0600,2200 [facility]; Protocol Last Admin: 06/16/19 05:09 Dose: 1 applicatio Documented by: Ondansetron HCl (Zofran Odt) 4 mg PO Q8H PRN PRN PRN Reason: NAUSEA Last Admin: 06/15/19 20:10 Dose: 4 mg Documented by: Oxycodone HCl (Oxyir) 10 mg PO Q4H PRN PRN PRN Reason: Pain Score 4-10/10 Last Admin: 06/16/19 14:53 Dose: 10 mg Documented by: Pantoprazole Sodium (Protonix) 40 mg PO DAILY [facility] Last Admin: 06/16/19 05:07 Dose: 40 mg Documented by: Polysaccharide Iron Complex (Ferrex 150) [facility] Last Admin: 06/16/19 08:52 Dose: 150 mg Documented by: Sodium Chloride () 10 - 40 ml IV UD PRN PRN Reason: SALINE FLUSH Last Admin: 06/07/19 20:57 Dose: 20 ml Documented by: Sodium Chloride ([place] Nasal Immaculata) 1 spray NASAL TID PRN PRN PRN Reason: NASAL DRYNESS Last Admin: 06/16/19 13:23 Dose: 1 spray Documented by: Sodium Chloride (Sodium Chloride) 1 gm PO DAILY@0800 [facility] Last Admin: 06/16/19 08:53 Dose: 1 gm Documented by: Tamsulosin HCl (Flomax) 0.4 mg PO DAILY@1730 [facility] Last Admin: 06/16/19 16:57 Dose: 0.4 mg Documented by: Discharge Diet: No Restrictions Discharge Activity: Return to Normal Activity, May Shower, Use Walker Weight Bearing Status: Weight bearing as tolerated Call your doctor if you observe: Fever of 101 or Higher, Inability to urinate, Inability to have a bowel movement, Shortness of breath, Chest pain, Uncontrolled pain Home Medications: Medications to take at Discharge Albuterol IH (ProAir) [Proair Hfa] 2 puff INHALATION Q6H PRN PRN 04/05/17 Gabapentin [Neurontin] 600 mg PO TIDCM 04/05/17 Ipratropium/Albuterol Sulfate [Duoneb] 3 ml INHALATION Q6HWA.RT 04/05/17 Sodium Chloride 1 gm PO DAILY 04/05/17 Budesonide Aerosol [Pulmicort Respules] 0.5 mg INHALATION BID 08/21/17 Multivitamins,Ther W-Minerals [Multivitamin With Minerals (BKC)] 1 tab PO DAILY 08/31/17 Pantoprazole Sodium 40 mg PO DAILY #30 tablet. 09/17/17 atorvastatin 20 mg tablet 20 mg PO QDAY #90 tab 10/18/17 metoprolol tartrate 50 mg tablet 50 mg PO TID tab 10/18/17 Amlodipine [Norvasc] 2.5 mg PO DAILY 05/29/19 Melatonin 10 mg PO QHS 05/29/19 Mirtazapine [Remeron] 15 mg PO QHS 05/29/19 Albuterol Aerosols [Ventolin Aerosols] 2.5 mg INHALATION Q2H PRN PRN vial.neb. 06/01/19 Oxycodone [Oxyir] 10 mg PO Q4H PRN PRN 06/01/19 Acetaminophen [Tylenol] 1,000 mg PO Q6H PRN PRN tablet 06/16/19 Aspirin [Aspirin, Baby] 81 mg PO BID #20 tab.chew 06/16/19 Iron Polysaccharide Complex [Ferrex 150] 150 mg PO DAILYCM #30 cap 06/16/19 Menthol/Lanolin/Calamine/Znox [Calmoseptine Ointment] 1 applic TOPICAL BID tube 06/16/19 Nystatin Powder [Mycostatin Powder] 1 applic TOPICAL 0600,2200 bottle 06/16/19 Ondansetron [Zofran Odt] 4 mg PO Q8H PRN PRN #21 tab 06/16/19 Oxycodone [Oxyir] 10 mg PO Q4H PRN PRN 7 Days #42 tablet 06/16/19 Sodium Chloride 0.65% [[place] Nasal Immaculata] 1 spray NASAL TID PRN PRN spray.btl 06/16/19 Tamsulosin HCl [Flomax] 0.4 mg PO DAILY@1730 #30 cap 06/16/19 Following Prescrptions Were Given to Patient: Aspirin [Aspirin, Baby] 81 mg PO BID #20 tab.chew Transmission Status: Pending to [facility] Iron Polysaccharide Complex [Ferrex 150] 150 mg PO DAILYCM #30 cap Transmission Status: Pending to [facility] Tamsulosin HCl [Flomax] 0.4 mg PO DAILY@1730 #30 cap Transmission Status: Pending to [facility] Oxycodone [Oxyir] 10 mg PO Q4H PRN PRN 7 Days #42 tablet PRN Reason: Pain Score 4-10/10 Transmission Status: Received by [facility] Ondansetron [Zofran Odt] 4 mg PO Q8H PRN PRN #21 tab PRN Reason: NAUSEA Transmission Status: Pending to [facility] Primary Care Physician: Irasema Jonas MD [Primary Care Provider] - Please follow up with your Primary Care Physician in: 1 week. Please Follow Up With: Dr. Millan When: Saturday Please Follow Up With: Abhishek Winters MD When: 2 weeks. Disposition: Home with Home Health Minutes spent on discharge:: 35 Patient Condition:: Stable Medical Necessity - Tobacco Use Smoking Status: Current every day smoker Tobacco Use: Cigarettes Meaningful Use Info Meaningful Use Diagnoses (Choose all that apply): None applicable
[2019-06-16] MEDS: Budesonide Respules 0.5 MG/2 ML AMPUL.NEB. INHALATION (21:04)
[2019-06-16] MEDS: MELATONIN 10 MG TABLET PO (22:12)
[2019-06-16] MEDS: Mirtazapine 15 MG Tablet PO (22:12)
[2019-06-16] MEDS: Atorvastatin Calcium 20 MG Tablet PO (22:12)
[2019-06-17] MEDS: oxyCODONE 5 MG Tablet 10 MG PO ×5 (03:28→21:23)
[2019-06-17] MEDS: Acetaminophen 500 MG Tablet 1000 MG PO (06:42)
[2019-06-17 06:43] VITALS: BP 140/65; PULSE 79
[2019-06-17] MEDS: Pantoprazole Sodium 40 MG Tablet PO (06:43)
[2019-06-17] MEDS: Metoprolol Tartrate 50 MG Tablet PO ×3 (06:43→21:24)
[2019-06-17] MEDS: Nystatin Powder 15gm Bottle 1 APPLIC TOPICAL ×2 (06:43→21:22)
[2019-06-17] MEDS: Menthol/Lanolin/Calamine/Znox 113 GM Tube 1 APPLIC TOPICAL ×2 (06:43→17:48)
[2019-06-17 07:51] VITALS: PULSE 83; RESP 20
--- NOTE | 2019-06-17 08:09 | CASEMGMT ---
Addendum entered by Mihaela Parson 06/17/19 13:17: Restarted aide services with [facility]. [facility] does not accept pt's insurance. Pt chose [facility]. Referral made. Original Note: Social Work Spoke with pt about DC plans. Pt requesting to DC home 06/17 regardless of insurance update 06/16. Pt requesting [facility] PT/OT/SN. Provided list of agencies - pt to choose. No DME needs requested. Brother will be off work to assist pt at home. Plan: DC home with brother assist 06/17 with [facility] PT/OT/SN. Mihaela Parson, LOCOMOTIVE MECHANIC APPRENTICE [employer]
[2019-06-17] MEDS: Gabapentin 600 MG Tablet PO ×3 (09:04→17:35)
[2019-06-17] MEDS: Aspirin 81 MG TAB.CHEW PO ×2 (09:04→17:35)
[2019-06-17] MEDS: Iron Polysaccharide Complex 150 MG CAPSULE PO (09:04)
[2019-06-17] MEDS: Multivitamins,Ther W-Minerals Tablet 1 TABLET PO (09:04)
[2019-06-17] MEDS: SODIUM CHLORIDE 1 GM TABLET PO (09:04)
[2019-06-17] MEDS: amLODIPine 2.5 MG Tablet PO (09:04)
[2019-06-17] MEDS: Ondansetron ODT 4 MG Tablet PO (10:50)
[2019-06-17] MEDS: LORazepam 0.5 MG Tablet PO (10:50)
[2019-06-17] MEDS: Albuterol Sulfate 8 gm Inhaler 2 PUFF INHALATION ×2 (11:28→17:36)
[2019-06-17 13:16] VITALS: BP 140/65; PULSE 84
[2019-06-17 14:58] VITALS: BP 144/69; PULSE 77; RESP 19; TEMP 36.7; O2SAT 97
[2019-06-17] MEDS: Tamsulosin HCl 0.4 MG Capsule PO (17:35)
[2019-06-17 20:40] VITALS: PULSE 78; RESP 20
[2019-06-17] MEDS: Ipratropium/Albuterol Sulfate 3 ML AMPUL.NEB INHALATION (20:40)
[2019-06-17] MEDS: Budesonide Respules 0.5 MG/2 ML AMPUL.NEB. INHALATION (20:50)
[2019-06-17] MEDS: Atorvastatin Calcium 20 MG Tablet PO (21:22)
[2019-06-17] MEDS: Mirtazapine 15 MG Tablet PO (21:22)
[2019-06-17] MEDS: MELATONIN 10 MG TABLET PO (21:22)
[2019-06-17 21:24] VITALS: BP 158/83; PULSE 82
[2019-06-18] MEDS: oxyCODONE 5 MG Tablet 10 MG PO ×2 (03:35→08:05)
[2019-06-18] MEDS: Albuterol Sulfate 8 gm Inhaler 2 PUFF INHALATION (03:36)
[2019-06-18] MEDS: Menthol/Lanolin/Calamine/Znox 113 GM Tube 1 APPLIC TOPICAL (03:38)
[2019-06-18] MEDS: Nystatin Powder 15gm Bottle 1 APPLIC TOPICAL (03:39)
[2019-06-18] MEDS: Ondansetron ODT 4 MG Tablet PO (05:32)
[2019-06-18 05:35] VITALS: BP 127/62; PULSE 84
[2019-06-18] MEDS: Metoprolol Tartrate 50 MG Tablet PO (05:35)
[2019-06-18] MEDS: Pantoprazole Sodium 40 MG Tablet PO (05:35)
[2019-06-18 05:55] LABS: Hematocrit 27.7 % (37-47); Hemoglobin 8.5 g/dL (12.0-15.0)
[2019-06-18 06:45] VITALS: PULSE 84; RESP 16; O2SAT 95
[2019-06-18] MEDS: Gabapentin 600 MG Tablet PO (08:05)
[2019-06-18] MEDS: Aspirin 81 MG TAB.CHEW PO (08:05)
[2019-06-18] MEDS: amLODIPine 2.5 MG Tablet PO (08:06)
[2019-06-18 08:22] VITALS: BP 120/63; PULSE 71; RESP 18; TEMP 36.5; O2SAT 99
== END 2019-06-18 09:15 | disposition home health service (06) | DRG 559 ==
PROVIDERS: Admitting Provider Family Medicine Geriatric Medicine; PCP Internal Medicine; Visit Provider Family Medicine Geriatric Medicine
DX: S72.002D Fracture of unspecified part of neck of left femur, subsequent encounter for closed fracture with routine healing (principal); J18.9 Pneumonia, unspecified organism; I50.32 Chronic diastolic (congestive) heart failure; E22.2 Syndrome of inappropriate secretion of antidiuretic hormone; J44.0 Chronic obstructive pulmonary disease with (acute) lower respiratory infection; S42.302D Unspecified fracture of shaft of humerus, left arm, subsequent encounter for fracture with routine healing; W19.XXXD Unspecified fall, subsequent encounter; I11.0 Hypertensive heart disease with heart failure; E11.42 Type 2 diabetes mellitus with diabetic polyneuropathy; Z23 Encounter for immunization; K21.9 Gastro-esophageal reflux disease without esophagitis; E78.5 Hyperlipidemia, unspecified; E11.51 Type 2 diabetes mellitus with diabetic peripheral angiopathy without gangrene; F17.210 Nicotine dependence, cigarettes, uncomplicated; F41.9 Anxiety disorder, unspecified; G40.909 Epilepsy, unspecified, not intractable, without status epilepticus; Z89.612 Acquired absence of left leg above knee
CPT/HCPCS: 31720; 36415; 71046; 73030; 80048; 81001; 82962; 85014; 85018; 85025; 87040; 87086; 87088; 87633; 90732; 94640; 97110; 97162; 97166; 97530; 97535; 97542; 97802; G0009; J7050; A4216; J7799

== ENCOUNTER 2019-06-25 17:00 | Outpatient (RCR) | payer MEDICARE, MEDICAID, SELFPAY ==
[2019-06-23 15:26] VITALS: BMI 25.9
[2019-06-25 17:40] LABS: Absolute Lymphocyte Count 1.33 X10^3/uL (0.83-4.51); Absolute Neutrophil Count 2.2 X10^3/uL (2.0-7.7); Basophil# 0.02 X10^3/uL; Basophil% 0.4 % (0-1); Eosinophil# 0.33 X10^3/uL; Eosinophils% 7.4 % (0-5); Hematocrit 32.8 % (37-47); Hemoglobin 9.7 g/dL (12.0-15.0); Lymphocyte # 1.33 X10^3/ul (4.0); Lymphocyte % 29.7 % (19-41); Mean Corp Hgb Conc 29.6 g/dL (32-36); Mean Corpuscular Hgb 29.9 pg (27.0-32.0); Mean Corpuscular Volume 101.2 fL (81-99); Mean Platelet Vol. 9.3 fl (6.2-12.0); Monocyte# 0.56 X10^3/uL; Monocyte% 12.5 % (0-10); NRBC Flagged by Analyzer 0 % (0-5); Neutrophil # 2.21 X10^3/uL (2.7-7.7); Neutrophil % 49.3 % (47-70); Platelet Count 265 K/mm3 (150-450); RBC Distribution Width CV 15.2 % (11.6-14.6); RBC Distribution Width SD 56.8 fl (35.1-43.9); Red Blood Count 3.24 M/mm3 (4.2-5.4); White Blood Count 4.5 K/mm3 (4.4-11.0)
[2019-06-25 18:04] LABS: Anion Gap 5 (5-15); BUN 7 mg/dL (7-18); BUN/Creat Ratio 10.2 RATIO (10-20); Calcium,Total 8.8 mg/dL (8.5-10.1); Chloride 100 mmol/L (98-107); Creatinine, Serum 0.68 mg/dL (0.55-1.02); EST Glomerular Filtration Rate 91 mL/min (>60); Est Glom Filt Rate - Afr Amer 110 mL/min (>60); Glucose 90 mg/dL (74-106); Potassium 4.7 mmol/L (3.5-5.1); Sodium Level 134 mmol/L (136-145)
== END 2019-06-25 18:00 | disposition home or self-care (01) ==
LOC: HHLAB 17:00
PROVIDERS: PCP Internal Medicine; Referring Provider Internal Medicine; Visit Provider Internal Medicine
DX: M80.0 Age-related osteoporosis with current pathological fracture (principal)
CPT/HCPCS: 80048; 85025

== ENCOUNTER 2019-07-01 16:51 | Emergency (ER) | payer MEDICARE, MEDICAID, SELFPAY ==
[2019-06-23 15:26] VITALS: BMI 25.9
[2019-07-01 16:53] VITALS: BP 128/69; PULSE 100; RESP 20; TEMP 37.4; O2SAT 100; BMI 24.6
--- NOTE | 2019-07-01 17:11 | EKG12_ITS ---
Test Reason : SOB Blood Pressure : / mmHG Vent. Rate : 067 BPM Atrial Rate : 067 BPM P-R Int : 222 ms QRS Dur : 082 ms QT Int : 370 ms P-R-T Axes : 073 004 038 degrees QTc Int : 390 ms Sinus rhythm with 1st degree A-V block Septal infarct , age undetermined Abnormal ECG Confirmed by RADHA GARCIA, LEANN ([id number]), editorial manager SOLO VAZQUEZ ([id number]) on 07/07/2019 2:56:09 PM Referred By: TL/APRIL Confirmed By:LEANN GARCIA MD
--- NOTE | 2019-07-01 17:13 | ED.DCSUM_ITS ---
History of Present Illness Chief Complaint: General Illness Informant: Patient Onset: Weeks - 1 Narrative: Presents from home 1 week history of mild productive cough, fever of 100.2 forehead 2 days ago. Occasional wheeze and dyspnea. No chest pains. Reports mild headache, and diarrhea, no vomiting however nauseated. Denies any loss of smell or taste. History of COPD on chronic 3 L of oxygen. Remote tobacco history. States had pneumonia last month after fall with hip fracture and shoulder fracture. Recovered from pneumonia symptoms however symptoms return a week ago. Is not a diabetic. Reported rales heard by nursing at home in the right lower lobe. Prior similar symptoms: Yes Past Medical History - Allergies and Home Meds Allergies/Adverse Reactions: Allergies levofloxacin [From Levaquin] Allergy (Verified 06/23/19 15:28) Other Red streak up her arm and itiching pregabalin [From Lyrica] Allergy (Verified 06/23/19 15:28) Other Sulfa (Sulfonamide Antibiotics) Allergy (Verified 06/23/19 15:28) Anaphylaxis duloxetine [From Cymbalta] Adverse Reaction (Verified 06/23/19 15:28) Vomiting sertraline HCl [From Zoloft] Adverse Reaction (Verified 06/23/19 15:28) MAKES ME CRAZY makes me crazy Primary Care Physician: Irasema Jonas MD [Primary Care Provider] - Past Medical History: - - COPD chronic 3 L, peripheral vascular disease, mild ME per patient, hypertension, hyperlipidemia Surgical History: appendectomy, hysterectomy, total hip arthroplasty - Left cemented hemiarthroplasty., - - Bilateral carotid endarterectomy,pad surgery with stents. Appears some type of either mesenteric stent or mesenteric bypass or aortic surgery Left femoral to distal bypass Left above knee amputation, Bilateral carotid endarterectomy. Smoking Status: Current every day smoker - Family History Paternal Family History: Family History (Last Reviewed 06/23/19 @ 15:[address] Red Millan MD) Mother CVA (cerebral vascular accident) Family History: Reports: Heart Disease Maternal Family History: Family History (Last Reviewed 06/23/19 @ 15:[address] Red Millan MD) Mother CVA (cerebral vascular accident) Family History: Reports: No pertinent history Review of Systems General: Reports: Fever. Denies: Chills, Sweats Eyes: Denies: Visual changes - bilaterally, Diplopia ENT: Denies: Rhinorrhea, Sore throat Cardiovascular: Denies: Chest pain, Palpitations Respiratory: Reports: Dyspnea, Cough, Sputum. Denies: Dyspnea on exertion Gastrointestinal: Reports: Nausea, Diarrhea. Denies: Abdominal pain, Vomiting, Melena, Hematochezia Genitourinary: Denies: Dysuria, Hematuria, Frequency Musculoskeletal: Denies: Back pain, Extremity Pain Skin: Denies: Rash, Wounds Neurological: Denies: Headache, Weakness, Numbness Physical Exam Vital Signs/Narrative: Vital Signs Temp Pulse Resp BP Pulse Ox 07/01/19 16:53 99.4 F H 100 20 H 128/69 H 100 Inital Vital Signs reviewed: Yes General: Well nourished, Well developed, No Acute Distress Head: Normocephalic, Atraumatic Eyes: Perrl, EOMI ENT: - - Facial mask secondary to [place] pandemic Neck: Supple, Nontender Cardiovascular: Regular rate, Regular rhythm, No murmurs Respiratory: No distress, CTA bilaterally, Chest nontender Abdomen: Soft, Nontender, Nondistended, Normal bowel sounds Back: Nontender, Normal Inspection Extremities: Nontender, No edema, - - Left AKA Skin: Normal color, No rash Neurological: Alert, Oriented x3, Cranial nerves II-XII grossly intact, Normal Strength, Normal Sensation Psychological: Normal affect, Normal Mood Diagnostic/Tx/Re-eval Clinical Impression(s) from Imaging Studies Chest X-Ray 07/01/19 18:15 IMPRESSION: Suboptimal inspiratory effort, but there is improved aeration of the lung bases. Left pleural reaction seen on prior study is also less conspicuous today. Electronically Signed: Osorio Dumont MD at 18:40 EDT , Service support , Abnormal Lab Results 07/01/19 07/01/19 07/01/19 17:23 17:23 17:57 WBC 4.5 RBC 3.05 L Hgb 9.0 L Hct 30.0 L MCV 98.4 MCH 29.5 MCHC 30.0 L RDW Std Deviation 52.6 H RDW Coeff of Reina 14.6 Plt Count 260 MPV 9.2 Immature Gran % (Auto) 0.200 Neut % (Auto) 56.7 Lymph % (Auto) 24.6 [place] % (Auto) 13.8 H Eos % (Auto) 4.5 Baso % (Auto) 0.2 Absolute Neuts (auto) 2.5 Absolute Lymphs (auto) 1.10 Nucleated RBC % 0 Sodium Potassium Chloride Carbon Dioxide Anion Gap BUN Creatinine Estim Creat Clear Calc Est GFR (MDRD) Af Amer Est GFR (MDRD) Non-Af BUN/Creatinine Ratio Glucose Calcium COVID-19 (ROSANA) Cancelled Negative 07/01/19 17:57 WBC RBC Hgb Hct MCV MCH MCHC RDW Std Deviation RDW Coeff of Reina Plt Count MPV Immature Gran % (Auto) Neut % (Auto) Lymph % (Auto) [place] % (Auto) Eos % (Auto) Baso % (Auto) Absolute Neuts (auto) Absolute Lymphs (auto) Nucleated RBC % Sodium 134 L Potassium 4.8 Chloride 99 Carbon Dioxide 31.0 Anion Gap 4 L BUN 12 Creatinine 0.60 Estim Creat Clear Calc 44.56 Est GFR (MDRD) Af Amer 128 Est GFR (MDRD) Non-Af 106 BUN/Creatinine Ratio 20.0 Glucose 90 Calcium 8.6 COVID-19 (ROSANA) - EKG Initial EKG Interpretation: Sinus Rhythm - Sinus rate of 67, no ST or T wave changes - Medical Decision Making Patient vitals stable pulse ox stable on her 3 L of oxygen. Not wheezing on exam, reports wheezing at home with COPD history. Started on steroids, labs are stable chest x-ray negative. COVID test was negative. With her COPD history we will treat according to Gold's criteria. Zithromax started. Signs and symptom discussed return. Otherwise follow-up as an outpatient. All questions were answered. Of note patient was due for her oxycodone for her shoulder pain from her recent fracture therefore was given a dose prior to discharge. ED Disposition - Plan for ED Patient: Disposition: Home or Assisted Living Diagnosis: COPD (chronic obstructive pulmonary disease) Instructions: ED COPD Flare Prescriptions: predniSONE tablet 60 mg PO DAILY #12 tab Transmission Status: Pending to [facility] Azithromycin [Zithromax] 250 mg PO DAILY #4 tab Transmission Status: Pending to [facility] Referrals: Irasema Jonas MD [Primary Care Provider] - 3-5 Days
[2019-07-01] MEDS: Ondansetron 4 MG/2 ML Vial IV (17:47)
[2019-07-01] MEDS: predniSONE 20 MG Tablet 60 MG PO (17:47)
[2019-07-01 18:10] LABS: Absolute Neutrophil Count 2.5 X10^3/uL (2.0-7.7); Basophil# 0.01 X10^3/uL; Basophil% 0.2 % (0-1); Eosinophils% 4.5 % (0-5); Lymphocyte % 24.6 % (19-41); Mean Corpuscular Hgb 29.5 pg (27.0-32.0); Mean Corpuscular Volume 98.4 fL (81-99); Mean Platelet Vol. 9.2 fl (6.2-12.0); Monocyte# 0.62 X10^3/uL; Monocyte% 13.8 % (0-10); NRBC Flagged by Analyzer 0 % (0-5); Neutrophil # 2.54 X10^3/uL (2.7-7.7); Neutrophil % 56.7 % (47-70); Platelet Count 260 K/mm3 (150-450); RBC Distribution Width CV 14.6 % (11.6-14.6); RBC Distribution Width SD 52.6 fl (35.1-43.9); Red Blood Count 3.05 M/mm3 (4.2-5.4); White Blood Count 4.5 K/mm3 (4.4-11.0)
--- NOTE | 2019-07-01 18:15 | RAD_ITS ---
STUDY: X-RAY CHEST REASON FOR EXAM: Female, 69 years old. Home nurse said rales this am on RLL, SOB, FEVER -- RECENT HIP AND SHOULDER SURGERY TECHNIQUE: Single AP portable upright view of the chest. The patient is in a mildly antilordotic position. COMPARISON: Upright AP and lateral chest x-ray June 03, 2019. FINDINGS: Surgical clips again seen in the bilateral soft tissues of the neck. The lungs overall remain underexpanded, but there is improved aeration at the lung bases. Stable calcified granulomata in the left apex. The small left pleural reaction noted on previous study is less conspicuous today. Normal size heart. Normal mediastinum and rhea. Normal visualized pulmonary arteries. There is stable mild atherosclerotic calcification of the aortic arch. Normal visualized thoracic spine. Old healed fracture deformities of the right 6-8 ribs again noted. There may be similar but less conspicuous deformities at the posterolateral left seventh and eighth ribs. There is no demonstrated abnormality of the visualized soft tissue structures of the upper abdomen. RAD/Chest 1 View (Portable) IMPRESSION: Suboptimal inspiratory effort, but there is improved aeration of the lung bases. Left pleural reaction seen on prior study is also less conspicuous today. Electronically Signed: Osorio Dumont MD at 18:40 EDT , Service support ,
[2019-07-01 18:29] LABS: Anion Gap 4 (5-15); BUN 12 mg/dL (7-18); Calcium,Total 8.6 mg/dL (8.5-10.1); Chloride 99 mmol/L (98-107); EST Glomerular Filtration Rate 106 mL/min (>60); Est Glom Filt Rate - Afr Amer 128 mL/min (>60); Estimated Creatinine Clearance 44.56 ml/min; Glucose 90 mg/dL (74-106); Potassium 4.8 mmol/L (3.5-5.1); Sodium Level 134 mmol/L (136-145)
[2019-07-01 19:16] VITALS: O2SAT 99
[2019-07-01 19:25] LABS: Probe Check PASS; SARS-COV-2 DNA by PCR Negative (Negative); Specimen Processing Control PASS
[2019-07-01] MEDS: oxyCODONE 5 MG Tablet PO (19:26)
[2019-07-01] MEDS: Azithromycin 250 MG Tablet 500 MG PO (19:26)
[2019-07-01 19:28] VITALS: RESP 18
[2019-07-01 20:06] VITALS: RESP 18; TEMP 36.7; O2SAT 99
== END 2019-07-01 20:08 | disposition home or self-care (01) ==
PROVIDERS: Emergency Provider Emergency Medicine; PCP Internal Medicine
DX: J44.9 Chronic obstructive pulmonary disease, unspecified (principal); I73.9 Peripheral vascular disease, unspecified; R50.9 Fever, unspecified; R19.7 Diarrhea, unspecified; F17.200 Nicotine dependence, unspecified, uncomplicated; I25.2 Old myocardial infarction; Z96.643 Presence of artificial hip joint, bilateral; Z99.81 Dependence on supplemental oxygen; Z89.612 Acquired absence of left leg above knee
CPT/HCPCS: 71045; 80048; 85025; 87635; 93005; 96361; 96374; 99285; G2023; J7030; A4216; J2405; U0004

== ENCOUNTER 2020-01-29 11:37 | Inpatient (IN) | payer MEDICARE, MEDICAID, SELFPAY ==
[2020-01-29] VITALS (8 sets, daily range): BP systolic 141–172; BP diastolic 64–90; PULSE 75–90; RESP 14–24; TEMP 36.6–37.3; O2SAT 97–100; BMI 26.9; BMI 25.0
--- NOTE | 2020-01-29 11:55 | EKG12_ITS ---
Test Reason : SOB Blood Pressure : / mmHG Vent. Rate : 074 BPM Atrial Rate : 074 BPM P-R Int : 206 ms QRS Dur : 078 ms QT Int : 376 ms P-R-T Axes : 081 050 049 degrees QTc Int : 417 ms Normal sinus rhythm Normal ECG Confirmed by KRISTINA GARCIA, MARIO ([id number]), index editor LEATHA GONZALEZ ([id number]) on 02/03/2020 9:52:49 A M Referred By: RAI Confirmed By:ROXANNE ACEVEDO MD
--- NOTE | 2020-01-29 11:58 | ED.DCSUM_ITS ---
History of Present Illness Informant: Patient Onset: Weeks - 1 week Context: Gradual Onset Timing: Continuous Quality: diarrhea, nausea Location: abdomen Current Severity: Moderate Maximum Severity: Moderate Worsened by: food Relieved by: nothing Associated Symptoms: weakness, fatigue, malaise Narrative: 69-year-old female history of COPD on home oxygen and peripheral vascular disease presents to the emergency department with 1 week of loose watery diarrhea generalized weakness and fatigue and malaise. She denies fevers, cough, chest pain or shortness of breath. She states that her brother was exposed to COVID-19. Patient has had 2 - test during the pandemic but none within the last 3 months. No hemoptysis. No recent antibiotic use. No abdominal pain. She has been urinating normally. She has not taken any of her medications in 1 week Prior similar symptoms: No Recent Illness/Hospitalization: No <Ferny Bishop - Last Filed: 01/29/20 15:15> <Noah Martinez - Last Filed: 01/29/20 16:03> Chief Complaint: General Illness Past Medical History Prior records reviewed: Yes Past Medical History: - - COPD on home oxygen, hypertension, coronary artery disease, peripheral vascular disease, hyperlipidemia Surgical History: appendectomy, hysterectomy, total hip arthroplasty - Left cemented hemiarthroplasty., - - Bilateral carotid endarterectomy,pad surgery with stents. Appears some type of either mesenteric stent or mesenteric bypass or aortic surgery Left femoral to distal bypass Left above knee amputation, Bilateral carotid endarterectomy. Lives: Alone Smoking Status: Former smoker Alcohol: None Drugs: None - Family History Paternal Family History: Family History (Last Reviewed 06/23/19 @ 15:[address] Red Millan MD) Mother CVA (cerebral vascular accident) Family History: Reports: Heart Disease Maternal Family History: Family History (Last Reviewed 06/23/19 @ 15:[address] Red Millan MD) Mother CVA (cerebral vascular accident) Family History: Reports: No pertinent history <Ferny Bishop - Last Filed: 01/29/20 15:15> - Family History Paternal Family History: Family History (Last Reviewed 06/23/19 @ 15:[address] Red Millan MD) Mother CVA (cerebral vascular accident) Maternal Family History: Family History (Last Reviewed 06/23/19 @ 15:[address] Red Millan MD) Mother CVA (cerebral vascular accident) <Noah Martinez - Last Filed: 01/29/20 16:03> - Allergies and Home Meds Allergies/Adverse Reactions: Allergies levofloxacin [From Levaquin] Allergy (Verified 01/29/20 11:38) Other Red streak up her arm and itiching pregabalin [From Lyrica] Allergy (Verified 01/29/20 15:01) Rash Sulfa (Sulfonamide Antibiotics) Allergy (Verified 01/29/20 11:38) Anaphylaxis duloxetine [From Cymbalta] Adverse Reaction (Verified 01/29/20 11:38) Vomiting sertraline HCl [From Zoloft] Adverse Reaction (Verified 01/29/20 11:38) MAKES ME CRAZY makes me crazy Primary Care Physician: Irasema Jonas MD [Primary Care Provider] - Review of Systems General: Reports: Malaise. Denies: Chills, Fever, Sweats Eyes: Denies: Visual changes - bilaterally, Diplopia ENT: Denies: Rhinorrhea, Sore throat Cardiovascular: Denies: Chest pain, Palpitations Respiratory: Denies: Dyspnea, Cough, Sputum, Dyspnea on exertion, Orthopnea, Paroxysmal nocturnal dyspnea Gastrointestinal: Reports: Diarrhea. Denies: Abdominal pain, Nausea, Vomiting, Melena, Hematochezia Genitourinary: Denies: Dysuria, Hematuria, Frequency Musculoskeletal: Denies: Myalgias, Back pain, Extremity Pain Skin: Denies: Rash, Wounds Neurological: Denies: Headache, Weakness, Parasthesia, Numbness <Ferny Bishop - Last Filed: 01/29/20 15:15> Physical Exam Vital Signs/Narrative: Vital Signs Temp Pulse Resp BP Pulse Ox 01/29/20 11:38 99.2 F H 83 22 H 150/90 H 99 Inital Vital Signs reviewed: Yes General: Well nourished, Well developed, No Acute Distress Head: Normocephalic, Atraumatic Eyes: Perrl, EOMI ENT: Moist mucous membranes, No rhinorrhea Neck: Supple, Nontender Cardiovascular: Regular rate, Regular rhythm, No murmurs Respiratory: No distress, CTA bilaterally, Chest nontender Abdomen: Soft, Nontender, Nondistended, Normal bowel sounds Back: Nontender, Normal Inspection Extremities: Nontender, No edema, - - Left [id number] amputation. Skin: Normal color, No rash, No Trauma Neurological: Alert, Oriented x3, Cranial nerves II-XII grossly intact, Normal Strength, Normal Sensation Psychological: Normal affect, Normal Mood <Ferny Bishop - Last Filed: 01/29/20 15:15> Vital Signs/Narrative: Vital Signs Temp Pulse Resp BP Pulse Ox 01/29/20 14:57 98 F 78 14 172/72 H 100 <Noah Martinez - Last Filed: 01/29/20 16:03> Diagnostic/Tx/Re-eval Chest X-Ray - ED: 1 View, Read by ED Physician, No Acute Disease, Chronic Changes 01/29/20 12:30 Chest 1 View (Portable) [RAD] Stat 01/29/20 13:25 Mucosa - Nose SARS-CoV-2 Antigen (Rapid) - Final Laboratory Results 01/29/20 01/29/20 01/29/20 12:15 12:15 12:20 WBC 4.4 RBC 3.64 L Hgb 10.9 L Hct 32.5 L MCV 89.3 MCH 29.9 MCHC 33.5 RDW Std Deviation 43.7 RDW Coeff of Reina 13.4 Plt Count 171 MPV 9.1 Immature Gran % (Auto) 0.900 Neut % (Auto) 69.2 Lymph % (Auto) 13.1 L Zapata % (Auto) 15.8 H Eos % (Auto) 0.5 Baso % (Auto) 0.5 Absolute Neuts (auto) 3.1 Absolute Lymphs (auto) 0.58 L Nucleated RBC % 0 Differential Comment COMMENT Sodium 120 L Potassium 3.9 Chloride 83 L Carbon Dioxide 33.0 H Anion Gap 4 L BUN 5 L Creatinine 0.46 L Estim Creat Clear Calc 46.91 Est GFR (MDRD) Af Amer 173 Est GFR (MDRD) Non-Af 143 BUN/Creatinine Ratio 10.8 Glucose 101 Calcium 8.6 Urine Color Yellow Urine Clarity Sl Cloudy Urine pH 7.0 Ur Specific [place] 1.010 Urine Protein 30 H Urine Glucose (UA) Normal Urine Ketones Negative Urine Occult Blood 50 H Urine Nitrite Positive H Urine Bilirubin Negative Urine Urobilinogen Normal Ur Leukocyte Esterase 500 H Urine RBC 0-5 SEEN Urine WBC 5-10 SEEN Ur Squamous Epith Cells 0 SEEN Urine Bacteria 2+ Urine Mucus 0 SEEN - Rhythm Strip Rhythm Strip: Sinus Rhythm Rate: 74 Ectopy: None - EKG Initial EKG Interpretation: Sinus Rhythm, No Acute Injury Pattern Prior: Unchanged - Medical Decision Making EKG on arrival was sinus rhythm rate of [address] segment or T wave changes. Prolonged IA interval unchanged from previous. Patient is hemodynamically stable on her baseline 3 L of oxygen. Patient's laboratory work-up was remarkable for hyponatremia sodium of 120, urine had positive nitrites with 3+ bacteria. Chest x-ray unremarkable. Rest of labs unremarkable. Patient will be admitted for hyponatremia and her UTI. She was given a dose of Rocephin. She was treated with IV fluids. Urine culture was sent. Rapid Covid was negative. <Ferny Bishop - Last Filed: 01/29/20 15:15> - Medical Decision Making Patient was seen with me. I did a [id number] examination with the patient. Patient presents with chills, nausea, vomiting, and diarrhea that became worse today. Patient admits to feeling weak. Patient denies any chest pain. Patient does admit to some shortness of breath but she has a history of COPD. Vital signs are stable. Patient is afebrile. Patient is in no acute distress. Oral mucosa is pink and moist. Neck is supple. Trachea is midline. There is no JVD. Heart was regular rate and rhythm. Lungs are clear and equal bilaterally. Abdomen is soft. Bowel sounds are normal. There is no tenderness. Cranial nerves II through XII are intact. There are no focal motor or sensory deficits. EKG was obtained. On my interpretation, there is normal sinus rhythm with a rate of 74. There are no acute ST or T wave changes. This was unchanged compared to previous EKG. Metabolic profile showed a sodium of 120. Urinalysis shows evidence of urinary tract infection. Patient was given IV fluids. Patient was given Rocephin. Covid antigen was obtained and was negative. Case was discussed with the hospitalist. She will admit the patient to her service. Patient understands and is agreeable with the plan. All questions were answered. <Noah Martinez - Last Filed: 01/29/20 16:03> ED Disposition <Ferny Bishop Last Filed: 01/29/20 15:15> <Noah Martinez - Last Filed: 01/29/20 16:03> - Plan for ED Patient: Disposition: Acute Care Hospital [facility] Diagnosis: UTI (urinary tract infection), Hyponatremia, Nausea vomiting and diarrhea Referrals: Irasema Jonas MD [Primary Care Provider] -
[2020-01-29] MEDS: Acetaminophen 500 MG Tablet 1000 MG PO (12:05)
[2020-01-29] MEDS: 0.9% Normal Saline 1,000 ML 1000 ML IV (12:19)
[2020-01-29] MEDS: Ondansetron 4 MG/2 ML Vial IV ×2 (12:19→18:42)
[2020-01-29 12:24] LABS: Absolute Lymphocyte Count 0.58 X10^3/uL (0.83-4.51); Absolute Neutrophil Count 3.1 X10^3/uL (2.0-7.7); Basophil# 0.02 X10^3/uL; Basophil% 0.5 % (0-1); Differential Indicated SCAN CRITERIA MET; Eosinophil# 0.02 X10^3/uL; Eosinophils% 0.5 % (0-5); Hematocrit 32.5 % (37-47); Hemoglobin 10.9 g/dL (12.0-15.0); Lymphocyte # 0.58 X10^3/ul (4.0); Lymphocyte % 13.1 % (19-41); Mean Corp Hgb Conc 33.5 g/dL (32-36); Mean Corpuscular Hgb 29.9 pg (27.0-32.0); Mean Corpuscular Volume 89.3 fL (81-99); Mean Platelet Vol. 9.1 fl (6.2-12.0); Monocyte% 15.8 % (0-10); NRBC Flagged by Analyzer 0 % (0-5); Neutrophil # 3.07 X10^3/uL (2.7-7.7); Neutrophil % 69.2 % (47-70); POSITIVE DIFFERENTIAL YES; Platelet Count 171 K/mm3 (150-450); RBC Distribution Width CV 13.4 % (11.6-14.6); RBC Distribution Width SD 43.7 fl (35.1-43.9); Red Blood Count 3.64 M/mm3 (4.2-5.4); White Blood Count 4.4 K/mm3 (4.4-11.0)
--- NOTE | 2020-01-29 12:30 | RAD_ITS ---
STUDY: X-RAY CHEST REASON FOR EXAM: Female, 70 years old. CHILLS, ADAMSON, N/V/D, AND INCREASED SOB TECHNIQUE: AP COMPARISON: 07/01/2019 FINDINGS: The lungs are clear but under expanded. There is no demonstrated pleural abnormality. Normal size heart. Normal mediastinum and rhea. Normal visualized pulmonary arteries. Normal visualized aortic arch and descending thoracic aorta. There is demineralization of the osseous structures. Left humeral neck fracture is healed. Bilateral old rib fractures noted. There is no demonstrated abnormality of the visualized soft tissue structures of the upper abdomen. RAD/Chest 1 View (Portable) IMPRESSION: Stable, nonacute portable x-ray examination of the chest. Electronically Signed: Mal Cee MD (Bro[place]) at 9:33 EST , Service support ,
[2020-01-29 12:31] LABS: Mucous, Urine 0 SEEN /hpf (<or=2+); Squamous Epithelial Cells - UA 0 SEEN /hpf (5-10)
[2020-01-29 12:36] LABS: Anion Gap 4 (5-15); BUN 5 mg/dL (7-18); BUN/Creat Ratio 10.8 RATIO (10-20); Calcium,Total 8.6 mg/dL (8.5-10.1); Chloride 83 mmol/L (98-107); Creatinine, Serum 0.46 mg/dL (0.55-1.02); EST Glomerular Filtration Rate 143 mL/min (>60); Est Glom Filt Rate - Afr Amer 173 mL/min (>60); Estimated Creatinine Clearance 46.91 ml/min; Glucose 101 mg/dL (74-106); Potassium 3.9 mmol/L (3.5-5.1); Sodium Level 120 mmol/L (136-145)
[2020-01-29 12:40] LABS: Color, Urine Yellow (Yellow); Glucose, Dipstick Normal (Normal); Ketone-Dipstick Negative (Negative); Urine Bilirubin Dipstick Negative (Negative); Urine Clarity Sl Cloudy (Clear)
[2020-01-29 12:41] LABS: Leukocyte Esterase-Dipstick 500 /ul (Negative); Nitrite-Dipstick Positive (Negative); Occult Blood-Urine 50 /ul (Negative); Protein-Dipstick 30 mg/dl (Negative); Urine Urobilinogen Normal (Normal)
[2020-01-29 12:42] LABS: Bacteria 2+ /hpf (None Seen); Red Blood Cells-Urine 0-5 SEEN /hpf (0-5); White Blood Cells 5-10 SEEN /hpf (0-5)
[2020-01-29] MEDS: Ceftriaxone 1 GM/50 ML BAG IV (14:50)
--- NOTE | 2020-01-29 15:09 | HP.PCM_ITS ---
Problem List (1) UTI (urinary tract infection) Status: Acute Qualifiers: Urinary tract infection type: acute cystitis Hematuria presence: without hematuria Qualified Code(s): N30.00 - Acute cystitis without hematuria (2) Hyponatremia Status: Acute (3) Nausea vomiting and diarrhea Status: Acute (4) Essential (primary) hypertension Status: Chronic (5) Chronic diastolic (congestive) heart failure Status: Chronic (6) Hyperlipidemia Status: Chronic Qualifiers: Hyperlipidemia type: unspecified Qualified Code(s): E78.5 - Hyperlipidemia, unspecified (7) Peripheral arterial occlusive disease Status: Chronic (8) Nicotine dependence Status: Chronic Qualifiers: Nicotine product type: cigarettes Substance use status: unspecified nicotine-induced disorder Qualified Code(s): F17.219 - Nicotine dependence, cigarettes, with unspecified nicotine-induced disorders (9) COPD (chronic obstructive pulmonary disease) Status: Chronic Qualifiers: COPD type: unspecified COPD Qualified Code(s): J44.9 - Chronic obstructive pulmonary disease, unspecified (10) Chronic respiratory failure with hypoxia and hypercapnia Status: Chronic (11) Chronic anemia Status: Chronic (12) History of CVA (cerebrovascular accident) Status: Chronic (13) Seizure disorder Status: Chronic (14) Chronic hyponatremia Status: Chronic History of Present Illness Date of Admission: 01/29/20 Chief Complaint: N/V/D, dysuria, frequency. The patient is a 69 y/o F w/ PMHx: Chronic Diastolic CHF, Chronic COPD w/ Chronic Hypoxic Respiratory Failure, PAOD, Chronic anemia, Diabetes mellitus type II with chronic neuropathy, Hx CVA, Tobacco use, Seizure disorder, Chronic Hyponatremia, HTN, HLD who presents to the [facility] ED on 01/29/20 with history of onset headache, chills, nausea, emesis, diarrhea with dysuria and frequency progressively worsening over the last 1 week. Patient denies having taken any of her home medications for approximately 1 week secondary to her acute illness. Work-up in the ED included T 99.2, heart rate 83, BP 150/90, respiratory rate 22, 99% on 3 L nasal cannula, CBC with WBC 4.4, hemoglobin 10.9, platelet 171 with lymphopenia noted, BMP with sodium 120, chloride 83, carbon oxide 33, BUN/creatinine 5/0.46 with previously noted baseline sodium ranging from 126- 134, urinalysis with evidence of UTI, SARS Covid rapid panel negative, chest x- ray with with no acute findings/chronic changes, EKG with SR without acute evidence of ischemia. In the ED patient ministered Tylenol, Zofran, normal saline. Past Medical History Past Medical History (Chronic Problems): Chronic Problems (Last Reviewed 06/23/19 @ 15:[address] Red Millan MD) Chronic respiratory failure with hypoxia and hypercapnia (Chronic) Chronic anemia (Chronic) History of CVA (cerebrovascular accident) (Chronic) Seizure disorder (Chronic) Chronic hyponatremia (Chronic) Essential (primary) hypertension (Chronic) Chronic diastolic (congestive) heart failure (Chronic) Hyperlipidemia (Chronic) Peripheral arterial occlusive disease (Chronic) Nicotine dependence (Chronic) COPD (chronic obstructive pulmonary disease) (Chronic) Medical History: Medical History (Last Reviewed 06/23/19 @ 15:[address] Red Millan MD) Essential (primary) hypertension (Chronic) I10 Chronic diastolic (congestive) heart failure (Chronic) I50.32 History of non-ST elevation myocardial infarction (NSTEMI) (Resolved) Onset Date: 05/29/19 I25.2 Hyperlipidemia (Chronic) E78.5 Peripheral arterial occlusive disease (Chronic) I77.9 Nicotine dependence (Chronic) F17.200 COPD (chronic obstructive pulmonary disease) (Chronic) J44.9 Anemia D64.9 Appetite loss R63.0 Atherosclerosis of [place] artery of left lower extremity I70.202 COPD (chronic obstructive pulmonary disease) J44.9 Cerebrovascular disease I67.9 Status post acute ischemic stroke no residual deficit Moderate carotid disease Bilateral carotid endarterectomy Chronic hypoxemic respiratory failure J96.11 Chronic ulcer of left foot with fat layer exposed L97.522 Debility R53.81 Diabetes E11.9 Diabetic polyneuropathy E11.42 GERD (gastroesophageal reflux disease) K21.9 Hammer toe of left foot M20.42 History of CVA (cerebrovascular accident) Z86.73 Hyponatremia E87.1 Insomnia G47.00 Neuropathic pain M79.2 Osteoporosis M81.0 Other specified peripheral vascular diseases I73.89 Seizure disorder G40.909 Seizure disorder G40.909 Thrombocytopenia D69.6 Type 2 diabetes mellitus with diabetic polyneuropathy E11.42 Vertebral compression fracture M48.50XA Abdominal pain (Resolved) R10.9 Acute kidney injury N17.9 Closed left hip fracture S72.002A Foot ulcer, left (Resolved) L97.529 Fracture of fifth toe, left, closed (Resolved) S92.502A Left humeral fracture S42.302A Shortness of breath (Resolved) R06.02 Tobacco user Z72.0 Elevated troponin (Inactive) R79.89 Allergies levofloxacin [From Levaquin] Allergy (Verified 01/29/20 11:38) Other Red streak up her arm and itiching pregabalin [From Lyrica] Allergy (Verified 01/29/20 15:01) Rash Sulfa (Sulfonamide Antibiotics) Allergy (Verified 01/29/20 11:38) Anaphylaxis duloxetine [From Cymbalta] Adverse Reaction (Verified 01/29/20 11:38) Vomiting sertraline HCl [From Zoloft] Adverse Reaction (Verified 01/29/20 11:38) MAKES ME CRAZY makes me crazy Home Medications: Ambulatory Orders Medication Instructions Recorded Albuterol IH (ProAir) [Proair Hfa] 2 puff INHALATION Q6H PRN PRN 04/05/17 Gabapentin [Neurontin] 800 mg PO TIDCM 04/05/17 Ipratropium/Albuterol Sulfate 3 ml INHALATION Q6HWA.RT 04/05/17 [Duoneb] Budesonide Aerosol [Pulmicort 0.5 mg INHALATION BID 08/21/17 Respules] Multivitamins,Ther W-Minerals 1 tab PO DAILYCM 08/31/17 [Multivitamin With Minerals ([facility])] metoprolol tartrate 50 mg tablet 50 mg PO TID tab 10/18/17 Amlodipine [Norvasc] 2.5 mg PO DAILY 05/29/19 Albuterol Aerosols [Ventolin 2.5 mg INHALATION Q2H PRN PRN 06/01/19 Aerosols] vial.neb. Acetaminophen [Tylenol] 1,000 mg PO Q6H PRN PRN tab 06/16/19 Aspirin [Aspirin, Baby] 81 mg PO BID #20 tab.chew 06/16/19 Iron Polysaccharide Complex 150 mg PO DAILYCM #30 cap 06/16/19 [Ferrex 150] Menthol/Lanolin/Calamine/Znox 1 applic TOPICAL BID tube 06/16/19 [Calmoseptine Ointment] Nystatin Powder [Mycostatin Powder] 1 applic TOPICAL 0600,2200 bottle 06/16/19 Ondansetron [Zofran Odt] 4 mg PO Q8H PRN PRN #21 tab 06/16/19 Sodium Chloride 0.65% [[place] Nasal 1 spray NASAL TID PRN PRN 06/16/19 [place]] spray.btl losartan 100 mg tablet 100 mg PO DAILY tab 06/23/19 Mirtazapine [Remeron] 30 mg PO QHS 01/29/20 Pantoprazole Sodium [Protonix] 40 mg PO DAILY 01/29/20 proMETHazine tablet [Phenergan 25 mg PO Q6H PRN PRN 01/29/20 tablet] Surgical History: Surgical History (Last Reviewed 06/23/19 @ 15:[address] Red Millan MD) History of above knee amputation Onset Date: 08/28/17 Z89.619 left History of appendectomy Z98.890, Z90.49 History of bilateral carotid endarterectomy Z98.890 History of cholecystectomy Onset Date: 2019 Z90.49 History of hemiarthroplasty of left hip Onset Date: 05/29/19 Z96.642 History of hysterectomy Z98.890, Z90.710 abdominal aorta endovascular stent graft bilateral femoral endarterectomy bilateral iliac stenting Surgical History: appendectomy, hysterectomy, total hip arthroplasty - Left cemented hemiarthroplasty., - - Bilateral carotid endarterectomy, BL LE stents/bypass surgery with eventual L AKA, Aortic surgery/stent, appendectomy, hysterectomy, cholecystectomy, left hip hemiarthroplasty. 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 Tobacco Use: Cigarettes Alcohol: None Drugs: None - *Family History Paternal Family History: Family History (Last Reviewed 06/23/19 @ 15:[address] Red Millan MD) Mother CVA (cerebral vascular accident) History Items: Heart Disease Maternal Family History: Family History (Last Reviewed 06/23/19 @ 15:[address] Red Millan MD) Mother CVA (cerebral vascular accident) History Items: Stroke Review of Systems Constitutional: Reports: Anorexia, Chills, Fever, Malaise, Weakness, Fatigue. Denies: Weight Change HEENT: Reports: Head Aches. Denies: Sinus Congestion, Sinus Drainage Cardiovascular: Denies: Chest Pain, Chest Pressure, Chest Tightness, Light Headedness, Orthopnea, Palpitations, Syncope Respiratory: Reports: Cough, Shortness of breath upon exertion, Wheezing. Denies: Shortness of breath at rest, Sputum production Gastrointestinal: Reports: Diarrhea, Nausea, Vomiting. Denies: Abdominal Pain Genitourinary: Reports: Dysuria, Frequency Musculoskeletal: Reports: Back Pain, Joint Pain. Denies: Joint Tenderness Skin: Denies: Rash, Wounds Neurological: Denies: Numbness, Tingling, Focal weakness Psychiatric: Reports: Anxiety, Depression. Denies: Homicidal Ideations, Suicidal Ideations Hematologic/ Lymphatic: Reports: Anemia, Easy Bruising, Easy Bleeding VTE Information - Inpt Only VTE Present on Admission: No VTE Mechan Device Prophylaxis: SCD's VTE Pharm Prophylaxis ordered?: Yes Patient Problems: Active and Suspected Problems (Last Reviewed 06/23/19 @ 15:[address] Red Millan MD) UTI (urinary tract infection) (Acute) Hyponatremia (Acute) Nausea vomiting and diarrhea (Acute) Subjective: Patient seated upright in the ED bed, fatigued and ill-appearing, no acute distress currently she notes. Objective: Physical Examination: General: awake, alert, oriented x 3 and cooperative, seated upright in the ED bed, fatigued and ill-appearing but no acute distress. Skin: normal color, turgor, no icterus, cyanosis, stasis disease. HEENT: AT/NC, EOMI, PERRLA, dry MM, no carotid bruits or JVD noted. Lungs: Significantly diminished breath sounds, greater bases, moderate effort, suspect this is her baseline, mild crackles bilateral bases suspected likely chronic, no obvious rhonchi or wheezing, on her chronic supplementation. Heart: Regular rate and rhythm; no gallop, rub audible. Abdomen: soft, NTTP, ND, normal BS, no HSM. Extremities: no cyanosis or clubbing, see skin, status post left AKA, stump well-appearing. Neurological: patient awake, alert, oriented as noted; cognitive function intact; pupils equally reactive to light and accomodation; cranial nerves II-XII grossly normal, moving all 4 extremities, no focal deficits, strength severely global decrease secondary to acute presentation. Psychiatric: affect appears fatigued and ill-appearing, no acute evidence of depressive or anxiety feelings. - Physical Exam Vitals/I&O's: Vital Signs Temp Pulse Resp BP Pulse Ox 98 F 78 14 172/72 H 100 01/29/20 14:57 01/29/20 14:57 01/29/20 14:57 01/29/20 14:57 01/29/20 14:57 Oxygen Flow Rate (L/min) 3 Oxygen Delivery Method Nasal Cannula Weight: 120 lb Body Mass Index (BMI) 26.9 Finger Stick Blood Glucose 126 Intake and Output for Last 24 Hours 01/27/20 01/28/20 01/29/20 23:59 23:59 23:59 Intake Total 1000 / 1000 Balance 1000 / 1000 Microbiology Past 72 Hours 01/29/20 13:25 Mucosa - Nose SARS-CoV-2 Antigen (Rapid) - Final Laboratory Results 01/29/20 12:15: WBC 4.4, RBC 3.64 L, Hgb 10.9 L, Hct 32.5 L, MCV 89.3, MCH 29.9, MCHC 33.5, RDW Std Deviation 43.7, RDW Coeff of [place] 13.4, Plt Count 171, MPV 9.1, Immature Gran % (Auto) 0.900, Neut % (Auto) 69.2, Lymph % (Auto) 13.1 L, [place] % (Auto) 15.8 H, Eos % (Auto) 0.5, Baso % (Auto) 0.5, Absolute Neuts (auto) 3.1, Absolute Lymphs (auto) 0.58 L, Nucleated RBC % 0, Differential Comment COMMENT 01/29/20 12:15: Sodium 120 L, Potassium 3.9, Chloride 83 L, Carbon Dioxide 33.0 H, Anion Gap 4 L, BUN 5 L, Creatinine 0.46 L, Estim Creat Clear Calc 46.91, Est GFR (MDRD) Af Amer 173, Est GFR (MDRD) Non-Af 143, BUN/Creatinine Ratio 10.8, Glucose 101, Calcium 8.6 01/29/20 12:20: Urine Color Yellow, Urine Clarity Sl Cloudy, Urine pH 7.0, Ur Specific [place] 1.010, Urine Protein 30 H, Urine Glucose (UA) Normal, Urine Ketones Negative, Urine Occult Blood 50 H, Urine Nitrite Positive H, Urine Bilirubin Negative, Urine Urobilinogen Normal, Ur Leukocyte Esterase 500 H, Urine RBC 0-5 SEEN, Urine WBC 5-10 SEEN, Ur Squamous Epith Cells 0 SEEN, Urine Bacteria 2+, Urine Mucus 0 SEEN Assessment/Plan All Active Problems (Last Reviewed 06/23/19 @ 15:[address] Red Millan MD) UTI (urinary tract infection) (Acute) Hyponatremia (Acute) Nausea vomiting and diarrhea (Acute) History of non-ST elevation myocardial infarction (NSTEMI) (Resolved 05/29/19) Abdominal pain (Resolved) Foot ulcer, left (Resolved) Fracture of fifth toe, left, closed (Resolved) Hyponatremia (Resolved) Shortness of breath (Resolved) Viral syndrome (Resolved) Cellulitis of foot (Ruled-out) The patient is a 69 y/o F w/ PMHx: Chronic Diastolic CHF, Chronic COPD w/ Chronic Hypoxic Respiratory Failure, PAOD, Chronic anemia, Diabetes mellitus type II with chronic neuropathy, Hx CVA, Tobacco use, Seizure disorder, Chronic Hyponatremia, HTN, HLD who presents to the [facility] ED on 01/29/20 with history of onset headache, chills, nausea, emesis, diarrhea as well as increased shortness of breath above baseline normally utilizing 3 L nasal cannula in addition to dysuria and frequency x1 week. 1. Nausea/Emesis/Diarrhea, Fever/Chills with Dysuria/Frequency secondary to Acute Urinary Tract Infection: UA upon ED evaluation remarkable, pending UCx, continue IVFs, monitor I/Os, continue IV Rocephin w/ transition as able pending sensitivities and speciation. 2. Acute on chronic hyponatremia, likely secondary to GI losses, hypovolemic: Admission sodium 120, patient baseline noted previously 1 26-1 34 but primarily in the lower 130s, will continue to judiciously hydrate, continue to closely monitor CMP's, if not improving may also obtain additional evaluation including TSH, FeNa, Uosm. 3. Chronic COPD w/ Chronic Hypoxic Respiratory Failure: CXR without acute findings, maintain on ATC duoneb, PRN albuterol, encourage HOB, IS. 4. Chronic diastolic CHF: As noted cautiously hydrating given history, continue aspirin, statin, hypertensive regimen including losartan and metoprolol, not on any diuretic therapy per current list. 5. Carotid disease: Status post bilateral CEA, continue aspirin, statin, hypertensive regimen, diabetic regimen. 6. PAOD: Status post peripheral stents as well as history of lower extremity bypass surgery with eventual left [id number] amputation as well as history of abdominal aortic endovascular stenting/graft, continue aspirin, statin, hypertensive regimen, diabetic regimen. 7. ? Diabetes mellitus type II with chronic neuropathy: Clarifying regimen, HgbA1c requested, in interim maintain on ADA diet, accu checks w/ ISS, continue home gabapentin regimen. 8. Hypertension: Continue home regimen including Norvasc, losartan, metoprolol with hold parameters as needed, PRN hydralazine. 9. Hyperlipidemia: Continue home statin regimen. 10. Tobacco use: Encourage continued tobacco cessation. 11. Anxiety and depression: We will continue patient home Remeron regimen. 12. Chronic anemia, iron deficiency anemia: Admission hemoglobin 10.9, continue iron supplementation, baseline appears 9-10, stable, trend. 13. Severe protein calorie malnutrition: Evidenced per habitus, obvious muscle and fat loss, nutrition consulted. 14. GERD: Continue home PPI. 15. DVT prophylaxis: SCDs, Lovenox. 16. 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 Noted that she may discuss these items with case management/social work if interested in information settings items up. Discussed CODE status at length including difference between FULL code, DNR-CCA and DNR-CC status. Following discussions about the differences in these status, requested Full Code. Advanced Care Planning Face to Face Time: 16 minutes. Inpatient E&M: 66133 Init Hosp L3 Procedures: 43233 Advncd Care Plan 30 Min
--- NOTE | 2020-01-29 18:00 | NURSING ---
Pt admitted this evening, emergency charting in place.
[2020-01-29 18:04] LABS: Anion Gap 6 (5-15); BUN 4 mg/dL (7-18); BUN/Creat Ratio 8.6 RATIO (10-20); Calcium,Total 8.5 mg/dL (8.5-10.1); Chloride 82 mmol/L (98-107); Creatinine, Serum 0.46 mg/dL (0.55-1.02); EST Glomerular Filtration Rate 143 mL/min (>60); Est Glom Filt Rate - Afr Amer 172 mL/min (>60); Estimated Creatinine Clearance 43.54 ml/min; Glucose 98 mg/dL (74-106); Magnesium 1.8 mg/dL (1.6-2.6); Potassium 3.9 mmol/L (3.5-5.1)
[2020-01-29 18:08] LABS: Hemoglobin A1c 4.9 % (3.8-5.6)
[2020-01-29 18:15] LABS: Bedside Glucose 127 mg/dL (70-110)
[2020-01-29 18:15] LABS: Sodium Level 118 mmol/L (136-145)
[2020-01-29] MEDS: 0.9% Normal Saline 1,000 ML 125 ML IV (18:21)
[2020-01-29] MEDS: Acetaminophen 325 MG Tablet 650 MG PO (18:42)
[2020-01-29] MEDS: 0.9% Saline Lock 10 ML Syringe IV (18:42)
[2020-01-29] MEDS: Budesonide Respules 0.5 MG/2 ML AMPUL.NEB. INHALATION (20:10)
[2020-01-29] MEDS: Ipratropium/Albuterol Sulfate 3 ML AMPUL.NEB INHALATION (20:10)
[2020-01-29] MEDS: 0.9% Normal Saline 1,000 ML 999 ML IV (20:26)
[2020-01-29] MEDS: Gabapentin 800 MG Tablet PO (20:27)
[2020-01-29] MEDS: Metoprolol Tartrate 50 MG Tablet PO (20:27)
[2020-01-29] MEDS: Nystatin Powder 15gm Bottle 1 APPLIC TOPICAL (20:28)
[2020-01-29] MEDS: Atorvastatin Calcium 20 MG Tablet PO (20:29)
[2020-01-29 22:28] LABS: Anion Gap 7 (5-15); BUN 4 mg/dL (7-18); BUN/Creat Ratio 13.7 RATIO (10-20); Calcium,Total 7.6 mg/dL (8.5-10.1); Chloride 97 mmol/L (98-107); Creatinine, Serum 0.29 mg/dL (0.55-1.02); EST Glomerular Filtration Rate 242 mL/min (>60); Est Glom Filt Rate - Afr Amer 292 mL/min (>60); Estimated Creatinine Clearance 43.54 ml/min; Glucose 95 mg/dL (74-106); Potassium 3.5 mmol/L (3.5-5.1); Sodium Level 129 mmol/L (136-145)
[2020-01-29] MEDS: Mirtazapine 30 MG Tablet PO (23:00)
[2020-01-29] MEDS: Menthol/Lanolin/Calamine/Znox 113 GM Tube 1 APPLIC TOPICAL (23:01)
[2020-01-29 23:11] LABS: Bedside Glucose 102 mg/dL (70-110)
[2020-01-30] VITALS (18 sets, daily range): BP systolic 143–165; BP diastolic 59–80; PULSE 74–96; RESP 18–24; TEMP 36.1–36.4; O2SAT 93–100
[2020-01-30] MEDS: 0.9% Normal Saline 1,000 ML 125 ML IV ×3 (02:04→17:52)
[2020-01-30] MEDS: proCHLORPERazine 10 MG/2 ML Vial 5 MG IV (02:23)
[2020-01-30] MEDS: 0.9% Saline Lock 10 ML Syringe IV (02:24)
[2020-01-30] MEDS: Acetaminophen 325 MG Tablet 650 MG PO ×3 (02:29→21:33)
[2020-01-30 03:26] LABS: Creatinine, Urine (random) < 13.00 mg/dL (NO RANGE EST.); Urine Sodium 78 mmol/L (Not Establ.)
[2020-01-30 03:45] LABS: Osmolality, Urine 182 mOsm/KG
--- NOTE | 2020-01-30 05:31 | PCM.PN.BLA ---
Progress Note Nurse reports that patient has right flank dermatomal rash that look like shingles. Patient was examined at bedside. Patient reports pain at right flank. He reports multiple episodes of shingles. Patient reports that rash is new. Physical examination showed dermatomal rash at flank which appears crusted. Impression: Shingles. Will start patient on acyclovir. Patient already on gabapentin. STROKE Vital Signs/Narrative: Vital Signs Temp Pulse Resp BP Pulse Ox 01/30/20 03:07 81 01/30/20 02:25 97.3 F L 85 19 H 143/59 H 96
[2020-01-30] MEDS: Ipratropium/Albuterol Sulfate 3 ML AMPUL.NEB INHALATION ×3 (05:59→18:27)
[2020-01-30] MEDS: Budesonide Respules 0.5 MG/2 ML AMPUL.NEB. INHALATION ×2 (05:59→18:27)
[2020-01-30] MEDS: oxyCODONE 5 MG Tablet PO ×3 (06:31→16:47)
[2020-01-30] MEDS: Metoprolol Tartrate 50 MG Tablet PO ×3 (06:32→21:29)
[2020-01-30] MEDS: Nystatin Powder 15gm Bottle 1 APPLIC TOPICAL ×2 (06:33→21:29)
[2020-01-30] MEDS: Acyclovir 800 MG Tablet PO ×5 (06:33→21:28)
[2020-01-30 06:50] LABS: Bedside Glucose 116 mg/dL (70-110)
[2020-01-30] MEDS: Gabapentin 800 MG Tablet PO ×3 (09:02→16:49)
[2020-01-30] MEDS: Clopidogrel Bisulfate 75 MG Tablet PO (09:03)
[2020-01-30] MEDS: Pantoprazole Sodium 40 MG Tablet PO (09:03)
[2020-01-30] MEDS: Losartan Potassium 100 MG Tablet PO (09:03)
[2020-01-30] MEDS: Iron Polysaccharide Complex 150 MG CAPSULE PO (09:03)
[2020-01-30] MEDS: amLODIPine 2.5 MG Tablet PO (09:03)
[2020-01-30] MEDS: Menthol/Lanolin/Calamine/Znox 113 GM Tube 1 APPLIC TOPICAL (09:03)
[2020-01-30] MEDS: Aspirin 81 MG TAB.CHEW PO ×2 (09:03→16:49)
[2020-01-30] MEDS: Enoxaparin 40 MG/0.4 ML Syringe SC (09:10)
[2020-01-30 09:42] LABS: Absolute Lymphocyte Count 0.42 X10^3/uL (0.83-4.51); Absolute Neutrophil Count 2.2 X10^3/uL (2.0-7.7); Basophil# 0.01 X10^3/uL; Basophil% 0.3 % (0-1); Eosinophil# 0.04 X10^3/uL; Eosinophils% 1.2 % (0-5); Hematocrit 30.7 % (37-47); Hemoglobin 9.8 g/dL (12.0-15.0); Lymphocyte # 0.42 X10^3/ul (4.0); Lymphocyte % 12.7 % (19-41); Mean Corp Hgb Conc 31.9 g/dL (32-36); Mean Corpuscular Hgb 29.3 pg (27.0-32.0); Mean Corpuscular Volume 91.9 fL (81-99); Mean Platelet Vol. 9.4 fl (6.2-12.0); Monocyte# 0.66 X10^3/uL; Monocyte% 19.9 % (0-10); NRBC Flagged by Analyzer 0 % (0-5); Neutrophil # 2.18 X10^3/uL (2.7-7.7); Neutrophil % 65.6 % (47-70); POSITIVE DIFFERENTIAL YES; Platelet Count 153 K/mm3 (150-450); RBC Distribution Width CV 13.7 % (11.6-14.6); RBC Distribution Width SD 46.8 fl (35.1-43.9); Red Blood Count 3.34 M/mm3 (4.2-5.4); White Blood Count 3.3 K/mm3 (4.4-11.0)
[2020-01-30 09:43] LABS: Differential Indicated SCAN CRITERIA MET
[2020-01-30 10:20] LABS: ALB/GLOB Ratio 0.8 RATIO (0.9-2.4); AST(SGOT) 19 U/L (15-37); Alanine Aminotransfer ALT/SGPT 23 U/L (13-56); Albumin, Serum 3.3 g/dL (3.2-5.0); Alkaline Phosphatase 91 U/L (45-117); Anion Gap 4 (5-15); BUN 3 mg/dL (7-18); BUN/Creat Ratio 8.2 RATIO (10-20); Calcium,Total 7.9 mg/dL (8.5-10.1); Chloride 101 mmol/L (98-107); Creatinine, Serum 0.36 mg/dL (0.55-1.02); EST Glomerular Filtration Rate 188 mL/min (>60); Est Glom Filt Rate - Afr Amer 228 mL/min (>60); Estimated Creatinine Clearance 42.94 ml/min; Globulin 4.1 g/dL (2.2-4.2); Glucose 95 mg/dL (74-106); Potassium 3.4 mmol/L (3.5-5.1); Protein, Total 7.4 g/dL (6.4-8.2); Sodium Level 133 mmol/L (136-145)
[2020-01-30 10:28] LABS: Basophilic Stippling RARE; Hypochromasia 1+; Platelet Estimate ADEQUATE (ADEQ)
[2020-01-30] MEDS: Albuterol 2.5 MG/3 ML VIAL.NEB. INHALATION (11:22)
--- NOTE | 2020-01-30 12:06 | PN_ITS ---
Patient Problems: Active and Suspected Problems (Last Reviewed 06/23/19 @ 15:[address] Red Millan MD) UTI (urinary tract infection) (Acute) Hyponatremia (Acute) Nausea vomiting and diarrhea (Acute) Subjective: Patient seen and examined. He was much better today. She was admitted with a complaint of nausea and vomiting as well as diarrhea and frequency of urination and dysuria. She has been managed for UTI. Of note, she was also diagnosed with shingles due to a dermatomal rash and was started on acyclovir. Patient feels much better today. Had dysuria and frequency has improved. Nausea and vomiting as well as diarrhea have also improved. Review of systems otherwise negative. She has remained hemodynamically stable. Vitals/I&O's: Vital Signs Temp Pulse Resp BP Pulse Ox 97.6 F L 82 20 H 147/78 H 99 01/30/20 08:30 01/30/20 11:00 01/30/20 11:22 01/30/20 08:30 01/30/20 08:30 Oxygen Flow Rate (L/min) 3 Oxygen Delivery Method Nasal Cannula Weight: 111 lb 6 oz Body Mass Index (BMI) 25.0 Finger Stick Blood Glucose 126 Intake and Output for Last 24 Hours 01/28/20 01/29/20 01/30/20 23:59 23:59 23:59 Intake Total 2290 / 2290 2160.83 / 2160.83 Output Total 1350 / 1350 Balance 2290 / 940 810.83 / 810.83 General: Alert, Oriented x3, Cooperative, No apparent distress HEENT: Atraumatic, PERRLA, EOMI, Normocephalic Oral: Dry Mucosa Neck: Supple, No JVD, Negative Carotid Bruits Lungs: Clear to auscultation, Normal air movement Cardiovascular: Regular rate, Regular Rhythm, Normal S1, Normal S2, No murmurs Abdomen: Bowel Sounds Present, Soft, - - mild suprapubic tendencies Extremities: No clubbing, No cyanosis, No edema, Capillary Refill Less than 3 Seconds Skin: No breakdown, - - erythematous papular rash in dermatomal area on the left flank Musculoskeletal: No Tenderness to Palpation of Joints or Extremities, - - sclosiosis Lymphatic: No Cervical, Supraclavicular, or Inguinal Adenopathy Neurological: Cranial nerves II-XII grossly intact, Neuro grossly intact, Motor Exam 5/5 strength throughout Psych/Mental Status: Normal Affect, Appropriate, Alert and oriented to time, place, person, mood and affect Microbiology Past 72 Hours 01/30/20 02:45 Stool C. difficile GDH Antigen & Toxins - Final 01/29/20 13:25 Mucosa - Nose SARS-CoV-2 Antigen (Rapid) - Final Laboratory Results 01/29/20 12:15: WBC 4.4, RBC 3.64 L, Hgb 10.9 L, Hct 32.5 L, MCV 89.3, MCH 29.9, MCHC 33.5, RDW Std Deviation 43.7, RDW Coeff of Reina 13.4, Plt Count 171, MPV 9.1, Immature Gran % (Auto) 0.900, Neut % (Auto) 69.2, Lymph % (Auto) 13.1 L, Braxton % (Auto) 15.8 H, Eos % (Auto) 0.5, Baso % (Auto) 0.5, Absolute Neuts (auto) 3.1, Absolute Lymphs (auto) 0.58 L, Nucleated RBC % 0, Differential Comment COMMENT 01/29/20 12:15: Sodium 120 L, Potassium 3.9, Chloride 83 L, Carbon Dioxide 33.0 H, Anion Gap 4 L, BUN 5 L, Creatinine 0.46 L, Estim Creat Clear Calc 46.91, Est GFR (MDRD) Af Amer 173, Est GFR (MDRD) Non-Af 143, BUN/Creatinine Ratio 10.8, Glucose 101, Calcium 8.6 01/29/20 12:15: Sodium 118 L*, Potassium 3.9, Chloride 82 L, Carbon Dioxide 30.0, Anion Gap 6, BUN 4 L, Creatinine 0.46 L, Estim Creat Clear Calc 43.54, Est GFR (MDRD) Af Amer 172, Est GFR (MDRD) Non-Af 143, BUN/Creatinine Ratio 8.6 L, Glucose 98, Calcium 8.5, Magnesium 1.8 01/29/20 12:15: Hemoglobin A1c 4.9 01/29/20 12:20: Urine Color Yellow, Urine Clarity Sl Cloudy, Urine pH 7.0, Ur Specific [place] 1.010, Urine Protein 30 H, Urine Glucose (UA) Normal, Urine Ketones Negative, Urine Occult Blood 50 H, Urine Nitrite Positive H, Urine Bilirubin Negative, Urine Urobilinogen Normal, Ur Leukocyte Esterase 500 H, Urine RBC 0-5 SEEN, Urine WBC 5-10 SEEN, Ur Squamous Epith Cells 0 SEEN, Urine Bacteria 2+, Urine Mucus 0 SEEN 01/29/20 18:07: POC Glucose 127 H 01/29/20 22:05: Sodium 129 L, Potassium 3.5, Chloride 97 L, Carbon Dioxide 25.0, Anion Gap 7, BUN 4 L, Creatinine 0.29 L, Estim Creat Clear Calc 43.54, Est GFR (MDRD) Af Amer 292, Est GFR (MDRD) Non-Af 242, BUN/Creatinine Ratio 13.7, Glucose 95, Calcium 7.6 L 01/29/20 23:00: POC Glucose 102 01/30/20 02:45: Urine Osmolality 182, Ur Random Sodium 78, Urine Creatinine < 13.00 01/30/20 06:36: POC Glucose 116 H 01/30/20 08:36: WBC 3.3 L, RBC 3.34 L, Hgb 9.8 L, Hct 30.7 L, MCV 91.9, MCH 29.3, MCHC 31.9 L, RDW Std Deviation 46.8 H, RDW Coeff of Reina 13.7, Plt Count 153, MPV 9.4, Immature Gran % (Auto) 0.300, Neut % (Auto) 65.6, Lymph % (Auto) 12.7 L, Braxton % (Auto) 19.9 H, Eos % (Auto) 1.2, Baso % (Auto) 0.3, Absolute Neuts (auto) 2.2, Absolute Lymphs (auto) 0.42 L, Nucleated RBC % 0, Diff Path Review June, Platelet Estimate ADEQUATE, Hypochromasia 1+, Basophilic Stippling RARE 01/30/20 08:36: Sodium 133 L, Potassium 3.4 L, Chloride 101, Carbon Dioxide 28.0, Anion Gap 4 L, BUN 3 L, Creatinine 0.36 L, Estim Creat Clear Calc 42.94, Est GFR (MDRD) Af Amer 228, Est GFR (MDRD) Non-Af 188, BUN/Creatinine Ratio 8.2 L, Glucose 95, Calcium 7.9 L, Total Bilirubin 0.30, AST 19, ALT 23, Alkaline Phosphatase 91, Total Protein 7.4, Albumin 3.3, Globulin 4.1, Albumin/Globulin Ratio 0.8 L Diagnostic Data Chest X-Ray 01/29/20 12:30 IMPRESSION: Stable, nonacute portable x-ray examination of the chest. Electronically Signed: Mal Cee MD (Brooks) at 9:33 EST , Service support , Current Medications Acetaminophen (Acetaminophen 325 Mg Tablet) 650 mg PO Q6H PRN PRN PRN Reason: Pain Score 1-10/Temp > 100.7 F Last Admin: 01/30/20 02:29 Dose: 650 mg Documented by: Acyclovir (Acyclovir 800 Mg Tablet) 800 mg PO 5X/DAY [facility] Last Admin: 01/30/20 09:02 Dose: 800 mg Documented by: Al Hydroxide/Mg Hydroxide (Mag Hydrox/Al Hydrox/Simeth 30 Ml Udc) 30 ml PO Q6H PRN PRN PRN Reason: Gastric Burning Albuterol Sulfate (Albuterol 2.5 Mg/3 Ml Vial.Neb.) 2.5 mg INHALATION Q2H PRN PRN PRN Reason: Dyspnea, wheezing Last Admin: 01/30/20 11:22 Dose: 2.5 mg Documented by: Albuterol/Ipratropium (Ipratropium/Albuterol Sulfate 3 Ml Ampul.Neb) 3 ml INHALATION Q6HWA.RT [facility] Last Admin: 01/30/20 05:59 Dose: 3 ml Documented by: Amlodipine Besylate (Amlodipine 2.5 Mg Tablet) 2.5 mg PO DAILY [facility] Last Admin: 01/30/20 09:03 Dose: 2.5 mg Documented by: Aspirin (Aspirin 81 Mg Tab.Chew) 81 mg PO BIDCM [facility] Last Admin: 01/30/20 09:03 Dose: 81 mg Documented by: Atorvastatin Calcium (Atorvastatin Calcium 20 Mg Tablet) 20 mg PO QHS [facility] Last Admin: 01/29/20 20:29 Dose: 20 mg Documented by: Budesonide (Budesonide Respules 0.5 Mg/2 Ml Ampul.Neb.) 0.5 mg INHALATION BID.RT [facility] Last Admin: 01/30/20 05:59 Dose: 0.5 mg Documented by: Calamine/Phenol (Menthol/Lanolin/Calamine/Znox 113 Gm Tube) 1 applic TOPICAL BID [facility]; Protocol Last Admin: 01/30/20 09:03 Dose: 1 applicatio Documented by: Clopidogrel Bisulfate (Clopidogrel Bisulfate 75 Mg Tablet) 75 mg PO DAILY [facility] Last Admin: 01/30/20 09:03 Dose: 75 mg Documented by: Enoxaparin Sodium (Enoxaparin 40 Mg/0.4 Ml Syringe) 40 mg SC DAILY [facility] Last Admin: 01/30/20 09:10 Dose: 40 mg Documented by: Gabapentin (Gabapentin 800 Mg Tablet) 800 mg PO TIDCM [facility] Last Admin: 01/30/20 12:02 Dose: 800 mg Documented by: Guaifenesin (Guaifenesin 10 Ml Udc (200mg/10ml)) 20 ml PO Q4H PRN PRN PRN Reason: COUGH Hydralazine HCl (Hydralazine 20 Mg/Ml Vial) 10 mg IV Q4H PRN PRN PRN Reason: SBP > 160 Sodium Chloride () 1,000 mls @ 125 mls/hr IV .Q8H [facility] Last Infusion: 01/30/20 09:41 Dose: 125 mls/hr Documented by: Ceftriaxone Sodium 2 gm/ (Sodium Chloride) 50 mls @ 100 mls/hr IV Q24 [facility] Last Infusion: 01/30/20 09:41 Dose: Infused Documented by: Losartan Potassium (Losartan Potassium 100 Mg Tablet) 100 mg PO DAILY [facility] Last Admin: 01/30/20 09:03 Dose: 100 mg Documented by: Magnesium Hydroxide (Magnesium Hydroxide 30 Ml Udc) 30 ml PO DAILY PRN PRN PRN Reason: Constipation Melatonin (Melatonin 3 Mg Tablet) 3 mg PO QHS PRN PRN PRN Reason: INSOMNIA Metoprolol Tartrate (Metoprolol Tartrate 50 Mg Tablet) 50 mg PO TID [facility] Last Admin: 01/30/20 06:32 Dose: 50 mg Documented by: Mirtazapine (Mirtazapine 30 Mg Tablet) 30 mg PO QHS [facility] Last Admin: 01/29/20 23:00 Dose: 30 mg Documented by: Nitroglycerin (Nitroglycerin (Inpatient Use) 0.4 Mg Tab.Subl) 0.4 mg SUBLINGUAL Q5M PRN PRN Reason: CARDIAC/CHEST PAIN Nystatin (Nystatin Powder 15gm Bottle) 1 applic TOPICAL 0600,2200 [facility]; Protocol Last Admin: 01/30/20 06:33 Dose: 1 applicatio Documented by: Ondansetron HCl (Ondansetron Odt 4 Mg Tablet) 4 mg PO Q8H PRN PRN PRN Reason: NAUSEA Ondansetron HCl (Ondansetron 4 Mg/2 Ml Vial) 4 mg IV Q8H PRN PRN PRN Reason: NAUSEA/VOMITING Last Admin: 01/29/20 18:42 Dose: 4 mg Documented by: Oxycodone HCl (Oxycodone 5 Mg Tablet) 5 mg PO Q4H PRN PRN PRN Reason: Pain Score 4-10 Last Admin: 01/30/20 12:02 Dose: 5 mg Documented by: Pantoprazole Sodium (Pantoprazole Sodium 40 Mg Tablet) 40 mg PO DAILY [facility] Last Admin: 01/30/20 09:03 Dose: 40 mg Documented by: Polysaccharide Iron Complex (Iron Polysaccharide Complex 150 Mg [facility]apsule) [facility] Last Admin: 01/30/20 09:03 Dose: 150 mg Documented by: Prochlorperazine Edisylate (Prochlorperazine 10 Mg/2 Ml Vial) 5 mg IV Q4H PRN PRN PRN Reason: Breakthrough Nausea/Vomiting Last Admin: 01/30/20 02:23 Dose: 5 mg Documented by: Psyllium Hydrophilic Mucilloid (Psyllium 1 Packet) 1 packet PO DAILY PRN PRN PRN Reason: Constipation Senna/Docusate Sodium (Senna/Docusate Sodium 1 Tablet) 2 tablet PO BID PRN PRN PRN Reason: Constipation Sodium Chloride (0.9% Saline Lock 10 Ml Syringe) 10 - 40 ml IV UD PRN PRN Reason: SALINE FLUSH Last Admin: 01/30/20 02:24 Dose: 10 ml Documented by: Sodium Chloride (Sodium Chloride 0.65% 1 [place].Btl) 1 spray NASAL TID PRN PRN PRN Reason: NASAL DRYNESS Throat Lozenges (Benzocaine/Menthol 1 Lozenge) 1 lozenge MUCOUS MEM Q2H PRN PRN PRN Reason: SORE THROAT STROKE Vital Signs/Narrative: Vital Signs Temp Pulse Resp BP Pulse Ox 01/30/20 11:22 20 H 01/30/20 11:00 82 01/30/20 08:30 97.6 F L 77 18 147/78 H 99 Medical Necessity - Tobacco Use Smoking Status: Current some day smoker - With ongoing approximately 3 to 5 cigarettes daily, notes is significantly cut down prior to this had been up to 1 pack/day easily starting when she been a teenager. Tobacco Use: Cigarettes Assessment/Plan All Active Problems (Last Reviewed 06/23/19 @ 15:[address] Red Millan MD) UTI (urinary tract infection) (Acute) Hyponatremia (Acute) Nausea vomiting and diarrhea (Acute) History of non-ST elevation myocardial infarction (NSTEMI) (Resolved 05/29/19) Abdominal pain (Resolved) Foot ulcer, left (Resolved) Fracture of fifth toe, left, closed (Resolved) Hyponatremia (Resolved) Shortness of breath (Resolved) Viral syndrome (Resolved) Cellulitis of foot (Ruled-out) #UTI * Currently on IV ceftriaxone. She feels much better. * Urine culture growing gram-negative lactose child life therapist. Speciation is pending. * continue ceftriaxone * Diarrhea has resolved and C. difficile was negative. * # Shingles: on valacyclovir #Acute on chronic hyponatremia * due to diarrhea. Resolving. Na is up to 129 today * continue gentle IV hydration * Hypokalemia: Potassium is 3.4. Will replace and monitor. #HFpEF: not in exacerbation. On losartan and metoprolol #CAD s/p bilateral carotid and arterectomy: On aspirin, statin and BP meds. #Hypertension: On Norvasc and losartan as well as metoprolol. Hyperlipidemia: On statin # Peripheral artery disease * S/p bilateral peripheral stents as well as left above-knee amputation. * On aspirin and statin. * #Depression and anxiety: On Remeron DVT prophylaxis: Lovenox Inpatient E&M: 81663 Subs Hosp L2
--- NOTE | 2020-01-30 14:35 | CASEMGMT ---
ELIJAH TARANGO ASSESSMENT Pt in special isolation precautions. ELIJAH TARANGO placed call to pt's room for initial transition planning/care coordination assessment. ELIJAH TARANGO introduced self and role at [facility].? Pt voices understanding and consents to assessment at this time.? Pt is A/O at this time and answers all questions appropriately.?? Care providers, pharmacy, and demographics verified/updated at this time. PCP: Dr Jonas Specialists: Dr Millan--cardiology, Dr Brownlee--pulmonology, Dr Burgos--vascular Preferred Pharmacy: [facility] Insurance: [employer] [facility] Prescription Benefit:? Yes Living Will/HPOA:? States does not have LW or HCPOA .? Interested in more information. Made aware SW will not be available to meet with her this weekend for completion of paperwork. Provided information on advanced directives and given Social Service rac card with number to call if chooses in the future to utilize [facility] social work for advanced directive completion. LNOK: Has 3 adult children--is estranged from one of them. Lives w/her brotherPhil Living Arrangements: Lives w/her brother Phil, in one-story home w/ramp entrance. Independent w/ADL's. Manages her own meds/appts. Has aides through [facility] 3 days a week for 2 1/2-3 hrs a day. CM through [facility] is: Daniel Dawn. Rocio HOFFMAN, made aware. Does not have home delivered meals per her choice. Transportation: Brother or through insurance DME: ?States has the following DME:? shower chair, BSC, hospital bed, rails/grab bars, hand held shower, W/C, [employer] alert button, nebulizer. O2 through [employer] @ 3 L/M continuously. Pt states no need for further DME at this time.? HHC/SNF: TCU and [facility] HHC. Pt wishes to return home w/resumption of aide services through [facility] and states has no concerns with going home at time of discharge. Discussed options of HHC or OP therapy but pt declines both, stating she does not feel she needs this. She was made aware, if in the future, she feels she would benefit from this, to discuss this with her PCP. She voices understanding. CM to follow for any discharge planning/needs.? Pt voices no further concerns/needs at this time.? Advised pt to ask for CM if any further questions/concerns/needs arise.? Voices understanding. PLAN: ?Home w/resumption of aides through [facility] Michael VIRK RN CM
--- NOTE | 2020-01-30 19:00 | PCS.PANDOC ---
PANDEMIC DOCUMENTATION INITIATED: Date: 01/29/20 Time: 17:30
[2020-01-30] MEDS: Atorvastatin Calcium 20 MG Tablet PO (21:28)
[2020-01-30] MEDS: Mirtazapine 30 MG Tablet PO (21:29)
--- NOTE | 2020-01-30 23:59 | NURSING ---
This RN was notified by [employer]ORNING [employer] that pt had a vape pen that her brother had dropped off this evening. This RN went into room and explained to pt that the hospital does not allow vaping here and that it must be locked up. Vape pen is locked in the med advertising analyst pts room. Martina Winters RN.
[2020-01-31] VITALS (17 sets, daily range): BP systolic 135–219; BP diastolic 62–85; PULSE 64–101; RESP 18–22; TEMP 36.2–36.8; O2SAT 93–100
[2020-01-31] MEDS: oxyCODONE 5 MG Tablet PO ×4 (00:31→13:29)
[2020-01-31] MEDS: 0.9% Normal Saline 1,000 ML 125 ML IV ×2 (02:39→11:09)
[2020-01-31] MEDS: hydrALAZINE 20 MG/ML Vial 10 MG IV (04:21)
[2020-01-31] MEDS: 0.9% Saline Lock 10 ML Syringe IV ×2 (04:21→06:12)
[2020-01-31] MEDS: Metoprolol Tartrate 50 MG Tablet PO (05:01)
[2020-01-31] MEDS: Acyclovir 800 MG Tablet PO ×3 (05:01→13:31)
[2020-01-31] MEDS: Nystatin Powder 15gm Bottle 1 APPLIC TOPICAL (05:01)
[2020-01-31] MEDS: Ondansetron 4 MG/2 ML Vial IV (06:12)
[2020-01-31] MEDS: Metoprolol Tartrate 25 MG Tablet PO (06:17)
[2020-01-31 07:26] LABS: Absolute Lymphocyte Count 0.49 X10^3/uL (0.83-4.51); Absolute Neutrophil Count 2.4 X10^3/uL (2.0-7.7); Basophil# 0.02 X10^3/uL; Basophil% 0.5 % (0-1); Differential Indicated SCAN CRITERIA MET; Eosinophil# 0.08 X10^3/uL; Eosinophils% 2.2 % (0-5); Hematocrit 32.2 % (37-47); Hemoglobin 10.4 g/dL (12.0-15.0); Lymphocyte # 0.49 X10^3/ul (4.0); Lymphocyte % 13.2 % (19-41); Mean Corp Hgb Conc 32.3 g/dL (32-36); Mean Corpuscular Hgb 29.8 pg (27.0-32.0); Mean Corpuscular Volume 92.3 fL (81-99); Mean Platelet Vol. 9.2 fl (6.2-12.0); Monocyte# 0.67 X10^3/uL; Monocyte% 18.1 % (0-10); NRBC Flagged by Analyzer 0 % (0-5); Neutrophil # 2.44 X10^3/uL (2.7-7.7); Neutrophil % 65.7 % (47-70); POSITIVE DIFFERENTIAL YES; Platelet Count 134 K/mm3 (150-450); RBC Distribution Width CV 13.9 % (11.6-14.6); RBC Distribution Width SD 47.2 fl (35.1-43.9); Red Blood Count 3.49 M/mm3 (4.2-5.4); White Blood Count 3.7 K/mm3 (4.4-11.0)
[2020-01-31 07:51] LABS: Differential Comment SCANNED
[2020-01-31 07:57] LABS: Anion Gap 7 (5-15); BUN 3 mg/dL (7-18); BUN/Creat Ratio 9.3 RATIO (10-20); Calcium,Total 8.4 mg/dL (8.5-10.1); Chloride 100 mmol/L (98-107); Creatinine, Serum 0.32 mg/dL (0.55-1.02); EST Glomerular Filtration Rate 215 mL/min (>60); Est Glom Filt Rate - Afr Amer 260 mL/min (>60); Estimated Creatinine Clearance 42.94 ml/min; Glucose 96 mg/dL (74-106); Potassium 3.1 mmol/L (3.5-5.1); Sodium Level 133 mmol/L (136-145)
[2020-01-31] MEDS: Ipratropium/Albuterol Sulfate 3 ML AMPUL.NEB INHALATION ×2 (07:59→14:01)
[2020-01-31] MEDS: Budesonide Respules 0.5 MG/2 ML AMPUL.NEB. INHALATION (07:59)
[2020-01-31] MEDS: proCHLORPERazine 10 MG/2 ML Vial 5 MG IV (09:22)
[2020-01-31] MEDS: Menthol/Lanolin/Calamine/Znox 113 GM Tube 1 APPLIC TOPICAL (09:26)
[2020-01-31] MEDS: Aspirin 81 MG TAB.CHEW PO (09:27)
[2020-01-31] MEDS: Iron Polysaccharide Complex 150 MG CAPSULE PO (09:27)
[2020-01-31] MEDS: Gabapentin 800 MG Tablet PO ×2 (09:28→12:27)
[2020-01-31] MEDS: Pantoprazole Sodium 40 MG Tablet PO (09:28)
[2020-01-31] MEDS: Losartan Potassium 100 MG Tablet PO (09:28)
[2020-01-31] MEDS: amLODIPine 2.5 MG Tablet PO (09:29)
[2020-01-31] MEDS: Clopidogrel Bisulfate 75 MG Tablet PO (09:29)
[2020-01-31] MEDS: Acetaminophen 325 MG Tablet 650 MG PO (09:30)
[2020-01-31] MEDS: Enoxaparin 40 MG/0.4 ML Syringe SC (09:30)
--- NOTE | 2020-01-31 11:56 | PCM.DC ---
- Discharge Diagnoses Current Active Problems: Current Active and Chronic Problems (Last Reviewed 06/23/19 @ 15:[address] Red Millan MD) UTI (urinary tract infection) (Acute) Hyponatremia (Acute) Nausea vomiting and diarrhea (Acute) Chronic respiratory failure with hypoxia and hypercapnia (Chronic) Chronic anemia (Chronic) History of CVA (cerebrovascular accident) (Chronic) Seizure disorder (Chronic) Chronic hyponatremia (Chronic) Essential (primary) hypertension (Chronic) Chronic diastolic (congestive) heart failure (Chronic) Hyperlipidemia (Chronic) Peripheral arterial occlusive disease (Chronic) Nicotine dependence (Chronic) COPD (chronic obstructive pulmonary disease) (Chronic) You will use the following diet at home:: Cardiac Your food should be the consistency of: Regular Your liquids should be the consistency of: Regular/Thin Discharge Activity: Return to Normal Activity Weight Bearing Status: Weight bearing as tolerated Call your doctor if you observe: Fever of 101 or Higher, Shortness of breath, Dizziness, Fainting spells, Swelling in the ankles Instructions: ED Urinary Retention, Female, Shingles (Herpes Zoster) Additional Instructions: follow up with PCP for follow up BMP in 1-2 days to follow up on potassium levels Allergies/Adverse Reactions: Allergies levofloxacin [From Levaquin] Allergy (Verified 01/29/20 11:38) Other Red streak up her arm and itiching pregabalin [From Lyrica] Allergy (Verified 01/29/20 15:01) Rash Sulfa (Sulfonamide Antibiotics) Allergy (Verified 01/29/20 11:38) Anaphylaxis duloxetine [From Cymbalta] Adverse Reaction (Verified 01/29/20 11:38) Vomiting sertraline HCl [From Zoloft] Adverse Reaction (Verified 01/29/20 11:38) MAKES ME CRAZY makes me crazy Medications to take at Discharge Albuterol IH (ProAir) [Proair Hfa] 2 puff INHALATION Q6H PRN PRN 04/05/17 Gabapentin [Neurontin] 800 mg PO TIDCM 04/05/17 Ipratropium/Albuterol Sulfate [Duoneb] 3 ml INHALATION Q6HWA.RT 04/05/17 Budesonide Aerosol [Pulmicort Respules] 0.5 mg INHALATION BID 08/21/17 metoprolol tartrate 50 mg tablet 50 mg PO TID tab 10/18/17 Amlodipine [Norvasc] 2.5 mg PO DAILY 05/29/19 Albuterol Aerosols [Ventolin Aerosols] 2.5 mg INHALATION Q2H PRN PRN vial.neb. 06/01/19 Acetaminophen [Tylenol] 1,000 mg PO Q6H PRN PRN tab 06/16/19 Aspirin [Aspirin, Baby] 81 mg PO BID #20 tab.chew 06/16/19 Ondansetron [Zofran Odt] 4 mg PO Q8H PRN PRN #21 tab 06/16/19 losartan 100 mg tablet 100 mg PO DAILY tab 06/23/19 Atorvastatin Calcium [Lipitor] 20 mg PO QHS 01/29/20 Clopidogrel Bisulfate [Clopidogrel] 75 mg PO DAILY 01/29/20 Mirtazapine [Remeron] 30 mg PO QHS 01/29/20 Pantoprazole Sodium [Protonix] 40 mg PO DAILY 01/29/20 proMETHazine tablet [Phenergan tablet] 25 mg PO Q6H PRN PRN 01/29/20 Acyclovir [Zovirax] 800 mg PO 5X/DAY 7 Days #35 tab 01/31/20 Cefdinir [Omnicef [equiv]] 300 mg PO Q12H #10 cap 01/31/20 Potassium Chloride [K-Dur] 20 meq PO DAILY #10 tab 01/31/20 The following prescriptions were given: Potassium Chloride [K-Dur] 20 meq PO DAILY #10 tab Transmission Status: Pending to [facility] Cefdinir [Omnicef [equiv]] 300 mg PO Q12H #10 cap Transmission Status: Pending to [facility] Acyclovir [Zovirax] 800 mg PO 5X/DAY 7 Days #35 tab Transmission Status: Pending to [facility] Primary Care Physician: Irasema Jonas MD [Primary Care Provider] - Please follow up with your Primary Care Physician in: 1-2 weeks Test Results: Test results from this visit will be discussed in further detail at your follow-up appointment, if applicable. Proposed Discharge Date: 01/31/20
--- NOTE | 2020-01-31 11:59 | PCM.DC.SUM ---
Discharge Date and Diagnosis - Problem List Patient Problems: Active and Suspected Problems (Last Reviewed 06/23/19 @ 15:[address] Red Millan MD) UTI (urinary tract infection) (Acute) Hyponatremia (Acute) Nausea vomiting and diarrhea (Acute) Date of Admission: 01/29/20 Date of Discharge: 01/31/20 - Primary Discharge Diagnosis Acute Problems: Active Problems (Last Reviewed 06/23/19 @ 15:[address] Red Millan MD) UTI (urinary tract infection) (Acute) Hyponatremia (Acute) Nausea vomiting and diarrhea (Acute) - Secondary Discharge Diagnosis Chronic Problems: Chronic Problems (Last Reviewed 06/23/19 @ 15:[address] Red Millan MD) Chronic respiratory failure with hypoxia and hypercapnia (Chronic) Chronic anemia (Chronic) History of CVA (cerebrovascular accident) (Chronic) Seizure disorder (Chronic) Chronic hyponatremia (Chronic) Essential (primary) hypertension (Chronic) Chronic diastolic (congestive) heart failure (Chronic) Hyperlipidemia (Chronic) Peripheral arterial occlusive disease (Chronic) Nicotine dependence (Chronic) COPD (chronic obstructive pulmonary disease) (Chronic) Hospital Course and Treatment Imaging Results: Diagnostic Data Chest X-Ray 01/29/20 12:30 IMPRESSION: Stable, nonacute portable x-ray examination of the chest. Electronically Signed: Mal Cee MD (Brooks) at 9:33 EST , Service support , Operations: None Procedures: None Summary of Care Provided: The patient is a 70 year old F with an extensive past medical history as outlined was admitted through the ED on 01/29/2020 with a complaint of headache, chills, nausea and vomiting as well as diarrhea with dysuria which have been going on for about a week and had gradually been worsening. Review of symptoms otherwise negative. She had not taken her home meds for about a week prior to this admission due to her acute illness. The ED, Covid antigen test done was negative and EKG showed no acute ST changes. Chest x-ray also showed no acute cardiopulmonary findings. Urinalysis was positive for UTI. Room was also noted to be low at 120 with a baseline being around 130s. She was admitted and managed for UTI and acute on chronic hyponatremia likely due to dehydration and GI losses. She was started on IV ceftriaxone and hydrated with IV fluids. Hyponatremia subsequently improved and she came up to baseline of 133. Her diarrhea also resolved and C. difficile and enteric pathogens done were negative. Her stay was complicated by hypokalemia and potassium was replaced aggressively. Urine cultured Citrobacter from ED. Patient was discharged home on 01/31/2020 with a prescription for p.o. Omnicef 300 mg twice daily for 5 days based on sensitivities from urine culture. Potassium was also 3.1 and she was given aggressive replacement and discharged with a prescription for p.o. potassium chloride 20 mEq daily for 10 days. She is follow-up with her primary care doctor for check of her potassium level in 2 to 3 days. Of note, stay was also complicated by dermatomal rash on her right flank and she was diagnosed with herpes zoster infection. She was started on acyclovir and discharged home with a 5-day prescription of acyclovir to treat shingles. Patient seen and examined prior to discharge. She felt well and was eager to be discharged. She had no complaints. Review of systems otherwise negative. Labs and vitals reviewed. Home medication reviewed and reconciled. O/E: Vital Signs Temp Pulse Resp BP Pulse Ox 97.7 F L 64 22 H 135/62 H 100 01/31/20 12:43 01/31/20 12:43 01/31/20 14:01 01/31/20 12:43 01/31/20 12:43 [] General: Alert, Oriented x3, Cooperative, No apparent distress HEENT: Atraumatic, PERRLA, EOMI, Normocephalic Oral: Dry Mucosa Neck: Supple, No JVD, Negative Carotid Bruits Lungs: Clear to auscultation, Normal air movement Cardiovascular: Regular rate, Regular Rhythm, Normal S1, Normal S2, No murmurs Abdomen: Bowel Sounds Present, Soft, - - mild suprapubic tendencies Extremities: No clubbing, No cyanosis, No edema, Capillary Refill Less than 3 Seconds Skin: No breakdown, - - erythematous papular rash in dermatomal area on the left flank Musculoskeletal: No Tenderness to Palpation of Joints or Extremities, - - sclosiosis Lymphatic: No Cervical, Supraclavicular, or Inguinal Adenopathy Neurological: Cranial nerves II-XII grossly intact, Neuro grossly intact, Motor Exam 5/5 strength throughout Psych/Mental Status: Normal Affect, Appropriate, Alert and oriented to time, place, person, mood and affect Plan is for discharge home today as above. Patient Problems: Active and Suspected Problems (Last Reviewed 06/23/19 @ 15:[address] Red Millan MD) UTI (urinary tract infection) (Acute) Hyponatremia (Acute) Nausea vomiting and diarrhea (Acute) - Physical Exam Vitals/I&O's: Vital Signs Temp Pulse Resp BP Pulse Ox 97.7 F L 64 18 135/62 H 100 01/31/20 11:10 01/31/20 11:10 01/31/20 11:10 01/31/20 11:10 01/31/20 11:10 Oxygen Flow Rate (L/min) 3 Oxygen Delivery Method Nasal Cannula Weight: 111 lb 6.005 oz Body Mass Index (BMI) 25.0 Finger Stick Blood Glucose 126 Intake and Output for Last 24 Hours 01/29/20 01/30/20 01/31/20 23:59 23:59 23:59 Intake Total 2290 / 2290 3638.75 / 3998.75 2839.59 / 2839.59 Output Total 1550 / 1550 Balance 2290 / 940 2088.75 / 2448.75 2839.59 / 2839.59 Microbiology Past 72 Hours 01/29/20 12:20 Urine Catheter - Catheter Urine Culture - Final Citrobacter freundii 01/30/20 02:45 Stool C. difficile GDH Antigen & Toxins - Final 01/29/20 13:25 Mucosa - Nose SARS-CoV-2 Antigen (Rapid) - Final Laboratory Results 01/31/20 07:20: WBC 3.7 L, RBC 3.49 L, Hgb 10.4 L, Hct 32.2 L, MCV 92.3, MCH 29.8, MCHC 32.3, RDW Std Deviation 47.2 H, RDW Coeff of Reina 13.9, Plt Count 134 L, MPV 9.2, Immature Gran % (Auto) 0.300, Neut % (Auto) 65.7, Lymph % (Auto) 13.2 L, Hanson % (Auto) 18.1 H, Eos % (Auto) 2.2, Baso % (Auto) 0.5, Absolute Neuts (auto) 2.4, Absolute Lymphs (auto) 0.49 L, Nucleated RBC % 0, Differential Comment SCANNED, Diff Path Review June foll 01/31/20 07:20: Sodium 133 L, Potassium 3.1 L, Chloride 100, Carbon Dioxide 26.0, Anion Gap 7, BUN 3 L, Creatinine 0.32 L, Estim Creat Clear Calc 42.94, Est GFR (MDRD) Af Amer 260, Est GFR (MDRD) Non-Af 215, BUN/Creatinine Ratio 9.3 L, Glucose 96, Calcium 8.4 L Current Medications Acetaminophen (Acetaminophen 325 Mg Tablet) 650 mg PO Q6H PRN PRN PRN Reason: Pain Score 1-10/Temp > 100.7 F Last Admin: 01/31/20 09:30 Dose: 650 mg Documented by: Acyclovir (Acyclovir 800 Mg Tablet) 800 mg PO 5X/DAY [facility] Last Admin: 01/31/20 09:28 Dose: 800 mg Documented by: Al Hydroxide/Mg Hydroxide (Mag Hydrox/Al Hydrox/Simeth 30 Ml Udc) 30 ml PO Q6H PRN PRN PRN Reason: Gastric Burning Albuterol Sulfate (Albuterol 2.5 Mg/3 Ml Vial.Neb.) 2.5 mg INHALATION Q2H PRN PRN PRN Reason: Dyspnea, wheezing Last Admin: 01/30/20 11:22 Dose: 2.5 mg Documented by: Albuterol/Ipratropium (Ipratropium/Albuterol Sulfate 3 Ml Ampul.Neb) 3 ml INHALATION Q6HWA.RT [facility] Last Admin: 01/31/20 07:59 Dose: 3 ml Documented by: Amlodipine Besylate (Amlodipine 2.5 Mg Tablet) 2.5 mg PO DAILY [facility] Last Admin: 01/31/20 09:29 Dose: 2.5 mg Documented by: Aspirin (Aspirin 81 Mg Tab.Chew) 81 mg PO BIDCM [facility] Last Admin: 01/31/20 09:27 Dose: 81 mg Documented by: Atorvastatin Calcium (Atorvastatin Calcium 20 Mg Tablet) 20 mg PO QHS [facility] Last Admin: 01/30/20 21:28 Dose: 20 mg Documented by: Budesonide (Budesonide Respules 0.5 Mg/2 Ml Ampul.Neb.) 0.5 mg INHALATION BID.RT [facility] Last Admin: 01/31/20 07:59 Dose: 0.5 mg Documented by: Calamine/Phenol (Menthol/Lanolin/Calamine/Znox 113 Gm Tube) 1 applic TOPICAL BID [facility]; Protocol Last Admin: 01/31/20 09:26 Dose: 1 applicatio Documented by: Clopidogrel Bisulfate (Clopidogrel Bisulfate 75 Mg Tablet) 75 mg PO DAILY [facility] Last Admin: 01/31/20 09:29 Dose: 75 mg Documented by: Enoxaparin Sodium (Enoxaparin 40 Mg/0.4 Ml Syringe) 40 mg SC DAILY [facility] Last Admin: 01/31/20 09:30 Dose: 40 mg Documented by: Gabapentin (Gabapentin 800 Mg Tablet) 800 mg PO TIDCM [facility] Last Admin: 01/31/20 09:28 Dose: 800 mg Documented by: Guaifenesin (Guaifenesin 10 Ml Udc (200mg/10ml)) 20 ml PO Q4H PRN PRN PRN Reason: COUGH Hydralazine HCl (Hydralazine 20 Mg/Ml Vial) 10 mg IV Q4H PRN PRN PRN Reason: SBP > 160 Last Admin: 01/31/20 04:21 Dose: 10 mg Documented by: Sodium Chloride () 1,000 mls @ 125 mls/hr IV .Q8H [facility] Last Admin: 01/31/20 11:09 Dose: 125 mls/hr Documented by: Ceftriaxone Sodium 2 gm/ (Sodium Chloride) 50 mls @ 100 mls/hr IV Q24 [facility] Last Infusion: 01/31/20 10:05 Dose: Infused Documented by: Potassium Chloride () 10 meq in 100 mls @ 100 mls/hr IV BOLUS Q1H [facility] Stop: 01/31/20 15:59 Losartan Potassium (Losartan Potassium 100 Mg Tablet) 100 mg PO DAILY [facility] Last Admin: 01/31/20 09:28 Dose: 100 mg Documented by: Magnesium Hydroxide (Magnesium Hydroxide 30 Ml Udc) 30 ml PO DAILY PRN PRN PRN Reason: Constipation Melatonin (Melatonin 3 Mg Tablet) 3 mg PO QHS PRN PRN PRN Reason: INSOMNIA Metoprolol Tartrate (Metoprolol Tartrate 50 Mg Tablet) 75 mg PO TID [facility] Mirtazapine (Mirtazapine 30 Mg Tablet) 30 mg PO QHS [facility] Last Admin: 01/30/20 21:29 Dose: 30 mg Documented by: Nitroglycerin (Nitroglycerin (Inpatient Use) 0.4 Mg Tab.Subl) 0.4 mg SUBLINGUAL Q5M PRN PRN Reason: CARDIAC/CHEST PAIN Nystatin (Nystatin Powder 15gm Bottle) 1 applic TOPICAL 0600,2200 [facility]; Protocol Last Admin: 01/31/20 05:01 Dose: 1 applicatio Documented by: Ondansetron HCl (Ondansetron Odt 4 Mg Tablet) 4 mg PO Q8H PRN PRN PRN Reason: NAUSEA Ondansetron HCl (Ondansetron 4 Mg/2 Ml Vial) 4 mg IV Q8H PRN PRN PRN Reason: NAUSEA/VOMITING Last Admin: 01/31/20 06:12 Dose: 4 mg Documented by: Oxycodone HCl (Oxycodone 5 Mg Tablet) 5 mg PO Q4H PRN PRN PRN Reason: Pain Score 4-10 Last Admin: 01/31/20 09:30 Dose: 5 mg Documented by: Pantoprazole Sodium (Pantoprazole Sodium 40 Mg Tablet) 40 mg PO DAILY [facility] Last Admin: 01/31/20 09:28 Dose: 40 mg Documented by: Polysaccharide Iron Complex ([facility] Polysaccharide Complex 150 [facility]apsule) [facility] Last Admin: 01/31/20 09:27 Dose: 150 mg Documented by: Prochlorperazine Edisylate (Prochlorperazine 10 Mg/2 Ml Vial) 5 mg IV Q4H PRN PRN PRN Reason: Breakthrough Nausea/Vomiting Last Admin: 01/31/20 09:22 Dose: 5 mg Documented by: Psyllium Hydrophilic Mucilloid (Psyllium 1 Packet) 1 packet PO DAILY PRN PRN PRN Reason: Constipation Senna/Docusate Sodium (Senna/Docusate Sodium 1 Tablet) 2 tablet PO BID PRN PRN PRN Reason: Constipation Sodium Chloride (0.9% Saline Lock 10 Ml Syringe) 10 - 40 ml IV UD PRN PRN Reason: SALINE FLUSH Last Admin: 01/31/20 06:12 Dose: 10 ml Documented by: Sodium Chloride (Sodium Chloride 0.65% 1 Mosca Mosca.Btl) 1 spray NASAL TID PRN PRN PRN Reason: NASAL DRYNESS Throat Lozenges (Benzocaine/Menthol 1 Lozenge) 1 lozenge MUCOUS MEM Q2H PRN PRN PRN Reason: SORE THROAT Discharge Diet: Low fat/ Low Cholesterol Discharge Activity: Return to Normal Activity Weight Bearing Status: Weight bearing as tolerated Call your doctor if you observe: Fever of 101 or Higher, Shortness of breath, Dizziness, Fainting spells, Swelling in the ankles Home Medications: Medications to take at Discharge Albuterol IH (ProAir) [Proair Hfa] 2 puff INHALATION Q6H PRN PRN 04/05/17 Gabapentin [Neurontin] 800 mg PO TIDCM 04/05/17 Ipratropium/Albuterol Sulfate [Duoneb] 3 ml INHALATION Q6HWA.RT 04/05/17 Budesonide Aerosol [Pulmicort Respules] 0.5 mg INHALATION BID 08/21/17 metoprolol tartrate 50 mg tablet 50 mg PO TID tab 10/18/17 Amlodipine [Norvasc] 2.5 mg PO DAILY 05/29/19 Albuterol Aerosols [Ventolin Aerosols] 2.5 mg INHALATION Q2H PRN PRN vial.neb. 06/01/19 Acetaminophen [Tylenol] 1,000 mg PO Q6H PRN PRN tab 06/16/19 Aspirin [Aspirin, Baby] 81 mg PO BID #20 tab.chew 06/16/19 Ondansetron [Zofran Odt] 4 mg PO Q8H PRN PRN #21 tab 06/16/19 losartan 100 mg tablet 100 mg PO DAILY tab 06/23/19 Atorvastatin Calcium [Lipitor] 20 mg PO QHS 01/29/20 Clopidogrel Bisulfate [Clopidogrel] 75 mg PO DAILY 01/29/20 Mirtazapine [Remeron] 30 mg PO QHS 01/29/20 Pantoprazole Sodium [Protonix] 40 mg PO DAILY 01/29/20 proMETHazine tablet [Phenergan tablet] 25 mg PO Q6H PRN PRN 01/29/20 Acyclovir [Zovirax] 800 mg PO 5X/DAY 7 Days #35 tab 01/31/20 Cefdinir [Omnicef [equiv]] 300 mg PO Q12H #10 cap 01/31/20 Potassium Chloride [K-Dur] 20 meq PO DAILY #10 tab 01/31/20 Following Prescriptions Were Given to Patient: Potassium Chloride [K-Dur] 20 meq PO DAILY #10 tab Transmission Status: Received by [facility] [address] Cefdinir [Omnicef [equiv]] 300 mg PO Q12H #10 cap Transmission Status: Received by [facility] [address] Acyclovir [Zovirax] 800 mg PO 5X/DAY 7 Days #35 tab Transmission Status: Received by [facility] [address] Primary Care Physician: Irasema Jonas MD [Primary Care Provider] - Please follow up with your Primary Care Physician in: 1-2 weeks Patient Instructions: Shingles (Herpes Zoster), ED Urinary Retention, Female Disposition: Home Minutes spent on discharge:: 40 Patient Condition:: Stable Medical Necessity - Tobacco Use Smoking Status: Current some day smoker - With ongoing approximately 3 to 5 cigarettes daily, notes is significantly cut down prior to this had been up to 1 pack/day easily starting when she been a teenager. Tobacco Use: Cigarettes Meaningful Use Info Meaningful Use Diagnoses (Choose all that apply): None applicable Inpatient E&M: 31817 Disch Hosp
[2020-01-31] MEDS: Potassium Chloride 10mEq/100mL 10 MEQ/100 ML IV.SOLN. 100 MEQ IV BOLUS ×4 (12:22→15:46)
[2020-01-31] MEDS: Metoprolol Tartrate 50 MG Tablet 75 MG PO (12:26)
--- NOTE | 2020-02-01 15:13 | CASEMGMT ---
ELIJAH TARANGO Discharge Follow-up Phone Call: JOSE: Yonas Strata: 3 Call Date: 02/01/20 Discharge Date: 01/31/20 Time of Call: 1515 Duration: 3 min Admitting Diagnosis: Acute UTI, hyponatremia, NVD ELIJAH TARANGO completed follow-up phonce call after recent hospitalization. Patient states she is doing well and was able to get some sleep last night. Patient has no questions or concerns regarding discharge instructions. Patient was able to fill prescriptions without any issues. Patient is aware to schedule appt with PCP. Patient had no further questions or concerns at this time.
[2020-02-01 15:15] LABS: Pathologist Review Reviewed
[2020-02-01 15:20] LABS: Pathologist Review Reviewed
== END 2020-01-31 17:45 | disposition home or self-care (01) | DRG 689 ==
LOC: ED 15:17 → PCU 16:17
PROVIDERS: Admitting Provider Family Medicine; Emergency Provider Physician Assistant Medical; PCP Internal Medicine; Visit Provider Student in an Organized Health Care Education/Training Program
DX: N30.00 Acute cystitis without hematuria (principal); E43 Unspecified severe protein-calorie malnutrition; E87.1 Hypo-osmolality and hyponatremia; J96.11 Chronic respiratory failure with hypoxia; J96.12 Chronic respiratory failure with hypercapnia; I50.32 Chronic diastolic (congestive) heart failure; B96.89 Other specified bacterial agents as the cause of diseases classified elsewhere; F17.210 Nicotine dependence, cigarettes, uncomplicated; E87.6 Hypokalemia; E86.0 Dehydration; G40.909 Epilepsy, unspecified, not intractable, without status epilepticus; I11.0 Hypertensive heart disease with heart failure; E78.5 Hyperlipidemia, unspecified; J44.9 Chronic obstructive pulmonary disease, unspecified; I25.2 Old myocardial infarction; I25.10 Atherosclerotic heart disease of native coronary artery without angina pectoris; K21.9 Gastro-esophageal reflux disease without esophagitis; M81.0 Age-related osteoporosis without current pathological fracture; I70.202 Unspecified atherosclerosis of native arteries of extremities, left leg; F32.9 Major depressive disorder, single episode, unspecified; F41.9 Anxiety disorder, unspecified; E11.42 Type 2 diabetes mellitus with diabetic polyneuropathy; E11.51 Type 2 diabetes mellitus with diabetic peripheral angiopathy without gangrene; D50.9 Iron deficiency anemia, unspecified; B02.9 Zoster without complications; R11.2 Nausea with vomiting, unspecified; R19.7 Diarrhea, unspecified; Z68.26 Body mass index [BMI] 26.0-26.9, adult; Z71.3 Dietary counseling and surveillance; Z89.612 Acquired absence of left leg above knee; Z79.82 Long term (current) use of aspirin; Z79.02 Long term (current) use of antithrombotics/antiplatelets; Z79.84 Long term (current) use of oral hypoglycemic drugs; Z79.899 Other long term (current) drug therapy; Z99.81 Dependence on supplemental oxygen; Z86.73 Personal history of transient ischemic attack (TIA), and cerebral infarction without residual deficits
CPT/HCPCS: 36415; 71045; 80048; 80053; 81001; 82570; 82962; 83036; 83735; 83935; 84300; 85025; 87077; 87086; 87088; 87186; 87426; 87493; 93005; 94640; 97162; 97165; 99251; 99284; J7030; J7040; A4216; G0463; J0696; J2405

== ENCOUNTER 2020-04-26 09:44 | Outpatient (RCR) | payer MEDICARE, SELFPAY ==
[2020-01-29 17:32] VITALS: BMI 25.0
[2020-04-26] MEDS: COVID-19 VACC, MRNA(PFIZER)/PF 30 MCG/0.3 ML SYRINGE IM (10:29)
[2020-05-17] MEDS: COVID-19 VACC, MRNA(PFIZER)/PF 30 MCG/0.3 ML SYRINGE IM (10:28)
== END 2020-07-19 23:59 ==
LOC: IMMUN 09:44
PROVIDERS: PCP Internal Medicine; Visit Provider Family Medicine
DX: Z23 Encounter for immunization (principal)
CPT/HCPCS: 0001A; 0002A; 91300

== ENCOUNTER 2020-11-02 10:03 | Emergency (ER) | payer MEDICARE, MEDICAID, SELFPAY ==
[2020-11-02 10:03] VITALS: BP 188/101; PULSE 102; RESP 16; TEMP 37.6; O2SAT 99; BMI 25.0
--- NOTE | 2020-11-02 10:19 | EDS_ITS ---
HPI History of Present Illness Chief Complaint: Complaint Detail of Chief Complaint: back pain Informant: patient Onset/Context/Timing Onset: Weeks (1) Context: Gradual Onset Timing: Continuous and Waxes and wanes Quality: achy Location: bilat kidneys Current Severity: Severe Maximum Severity: Severe Worsened by: nothing Relieved by: nothing but eases off w/ time Associated Symptoms Associated Symptoms: urinary frequency, nausea/vomiting Narrative Narrative: Patient states she has had urinary frequency and dysuria for almost 3 weeks now, she delivered a urine specimen to her doctor's office, and they provided her with a prescription for nitrofurantoin just this past week, she has 1 or 2 more days worth of a week's prescription left, about 2 days after starting the prescription she developed gradual onset of discomfort in both sides of her low back that has worsened and feels like prior kidney infections. She does have a history of stones as well, but states that nothing was sudden severe here, just gradual. She has had nausea and a couple episodes of vomiting, no fevers or chills or generalized symptoms. The dysuria is gone but she still is urinating frequently. No hematuria. [facility] Medical History (Updated 11/02/20 @ 13:[address] Jaydon Paez MD) Abdominal pain Acute kidney injury Anemia Appetite loss Atherosclerosis of [place] artery of left lower extremity Cerebrovascular disease Chronic diastolic (congestive) heart failure Chronic hypoxemic respiratory failure Chronic ulcer of left foot with fat layer exposed Closed left hip fracture COPD (chronic obstructive pulmonary disease) COPD (chronic obstructive pulmonary disease) Debility Diabetes Diabetic polyneuropathy Elevated troponin Essential (primary) hypertension Foot ulcer, left Fracture of fifth toe, left, closed GERD (gastroesophageal reflux disease) Hammer toe of left foot History of CVA (cerebrovascular accident) History of non-ST elevation myocardial infarction (NSTEMI) (05/29/19) Hyperlipidemia Hyponatremia Insomnia Left humeral fracture Neuropathic pain Nicotine dependence Osteoporosis Other specified peripheral vascular diseases Peripheral arterial occlusive disease Seizure disorder Seizure disorder Shortness of breath Thrombocytopenia Tobacco user Type 2 diabetes mellitus with diabetic polyneuropathy Vertebral compression fracture Home Medications albuterol sulfate 2 puff INHALATION Q6H PRN PRN 04/05/17 [History Last Taken Unknown] gabapentin 800 mg PO TIDCM 04/05/17 [History Last Taken 01/22/20] ipratropium-albuterol 3 ml INHALATION Q6HWA.RT 04/05/17 [History Last Taken 01/29/20] budesonide 0.5 mg INHALATION BID 08/21/17 [History Last Taken 01/29/20] metoprolol tartrate 50 mg tablet 50 mg PO TID tab 10/18/17 [History Last Taken 01/29/20 08:30] amlodipine 2.5 mg PO DAILY 05/29/19 [History Last Taken 01/22/20] albuterol sulfate 2.5 mg INHALATION Q2H PRN PRN vial.neb. 06/01/19 [Rx Last Taken Unknown] acetaminophen 1,000 mg PO Q6H PRN PRN tab 06/16/19 [Rx Last Taken Unknown] aspirin 81 mg PO BID #20 tab.chew 06/16/19 [Rx Last Taken 01/22/20] ondansetron 4 mg PO Q8H PRN PRN #21 tab 06/16/19 [Rx Last Taken Unknown] losartan 100 mg tablet 100 mg PO DAILY tab 06/23/19 [History Last Taken 01/22/20] atorvastatin 20 mg PO QHS 01/29/20 [History Last Taken 01/22/20] clopidogrel 75 mg PO DAILY 01/29/20 [History Last Taken 01/22/20] mirtazapine 30 mg PO QHS 01/29/20 [History Last Taken 01/22/20] pantoprazole 40 mg PO DAILY 01/29/20 [History Last Taken 01/22/20] promethazine 25 mg PO Q6H PRN PRN 01/29/20 [History Last Taken Unknown] ciprofloxacin HCl 500 mg PO BID #14 tablet 11/02/20 [Rx Last Taken Unknown] hydrocodone-acetaminophen 1 tab PO Q6H PRN PRN 3 Days #10 tablet 11/02/20 [Rx Last Taken Unknown] Allergy/AdvReac Type Severity Reaction Status Date / Time pregabalin [From Lyrica] Allergy Rash Verified 11/02/20 10:06 duloxetine [From Cymbalta] AdvReac Vomiting Verified 11/02/20 10:06 sertraline HCl [From Zoloft] AdvReac MAKES ME Verified 11/02/20 10:06 LATHA Family History Mother CVA (cerebral vascular accident) Surgical History abdominal aorta endovascular stent graft bilateral femoral endarterectomy bilateral iliac stenting History of above knee amputation (08/28/17) History of appendectomy History of bilateral carotid endarterectomy History of cholecystectomy (2019) History of hemiarthroplasty of left hip (05/29/19) History of hysterectomy Social History Smoking Status: Current some day smoker tobacco type: cigarettes alcohol intake: never caffeine: Yes Type: coffee Number of servings: 1 ROS ROS ED Constitutional Constitutional ED: Denies chills or fever(s) Eyes Eyes: Denies change in vision or diplopia ENT ENT ED: Denies rhinorrhea or sore throat Cardiovascular Cardiovascular: Denies chest pain or palpitations Respiratory/Chest Respiratory/Chest: Denies cough or dyspnea Gastrointestinal Gastrointestinal: Reports nausea and vomiting; Denies abdominal pain or diarrhea Genitourinary Genitourinary ED: Reports as per HPI, low back pain and urinary frequency; Denies dysuria or hematuria Musculoskeletal Musculoskeletal: Reports back pain; Denies neck pain Integumentary Denies abscess or rash Neurologic Neurologic: Denies headache(s), paresthesias or weakness Psychiatric Psychiatric: Denies anxiety or suicidal thoughts EXAM Physical Exam Const Vital Signs: 11/02/20 10:03 11/02/20 10:46 11/02/20 12:03 Temperature 99.6 F H 98.6 F 97.9 F Temperature Source Temporal Oral Oral Pulse Rate 102 H 96 106 H Respiratory Rate 16 20 H 16 Blood Pressure 188/101 H 167/87 H 151/88 H Blood Pressure Mean 130 113 109 Pulse Ox 99 99 98 Oxygen Delivery Method Nasal Cannula Nasal Cannula Nasal Cannula Oxygen Flow Rate (L/min) 3 3 3 11/02/20 12:14 Temperature 98.8 F Temperature Source Oral Pulse Rate 106 H Respiratory Rate 18 Blood Pressure 151/88 H Blood Pressure Mean 109 Pulse Ox 96 Oxygen Delivery Method Nasal Cannula Oxygen Flow Rate (L/min) 3 Positive well nourished and well developed Constitutional Narrative: In painful distress intermittently, given colicky nature of pain and back General Appearance ED: well developed and NAD HEENT Reports moist mucous membranes normocephalic and atraumatic Eyes PERRL and EOMs intact bilaterally Neck full ROM and supple Resp normal respiratory effort and clear to auscultation bilaterally Cardio regular rate, regular rhythm and no murmurs GI non-tender and non-distended Auscultation: normoactive bowel sounds Palpation: soft Back/Spine General Back: CVA tenderness bilateral and other FROM Extremity normal to inspection General Extremety ED: Negative for edema, pulses abnormal or tenderness General Extremity: Negative for edema or pulses abnormal Neuro oriented x3, CN's II-XII intact bilaterally and no sensory deficits noted Sensorium / Orientation: awake and alert Motor Exam: strength 5/5 throughout Skin no rashes or lesions noted and no wounds MDM MDM MDM Narrative Medical decision making narrative: None patient was very difficult stick, staff had difficulty getting blood on her and was not able to get an IV, so there was a delay in getting her analgesics, but she was eventually given morphine intramuscularly as well as a small dose of Toradol. This did help some but she wanted more pain medication. Her abdomen is benign. I was able to get her urine results sent to me from [facility] which was done as an outpatient, it grew out Citrobacter freundii susceptible to most including nitrofurantoin and ciprofloxacin, resistant to ampicillin and cefazolin. There were greater than 100,000 CFU per mL. Her urinalysis was unimpressive. There was no pyuria. Her urinalysis today also was unimpressive showing no pyuria. Given all of this, I will err on the side of caution and treat her empirically for pyelonephritis, theoretically if she was getting Bl[place] the nitrofurantoin would not have successfully treated her. Since this is sensitive to ciprofloxacin and I am not able to get an IV, I will place her on Cipro for 7 days, first dose given here, and she will be discharged on some [place] as well we discussed reasons to return she is comfortable with that plan. Her abdomen is very benign on exam here and she has no abdominal pain. Lab Data Attestation: I reviewed the patient's lab results. Labs: Laboratory Results - last 24 hr 11/02/20 11/02/20 11/02/20 11:45 11:45 12:15 WBC Cancelled Corrected WBC Cancelled RBC Cancelled Hgb Cancelled Hct Cancelled MCV Cancelled MCH Cancelled MCHC Cancelled RDW Std Deviation Cancelled RDW Coeff of Reina Cancelled Plt Count Cancelled MPV Cancelled Immature Gran % (Auto) Cancelled Neut % (Auto) Cancelled Lymph % (Auto) Cancelled Upson % (Auto) Cancelled Eos % (Auto) Cancelled Baso % (Auto) Cancelled Absolute Neuts (auto) Cancelled Absolute Lymphs (auto) Cancelled Total Counted Cancelled Neutrophils % (Manual) Cancelled Band Neutrophils % Cancelled Lymphocytes % (Manual) Cancelled Monocytes % (Manual) Cancelled Eosinophils % (Manual) Cancelled Basophils % (Manual) Cancelled Metamyelocytes % Cancelled Myelocytes % Cancelled Promyelocytes % Cancelled Blast Cells % Cancelled Plasma Cell % (Manual) Cancelled Other Cells % Cancelled Nucleated RBC % Cancelled Nucleated RBCs/100 WBC Cancelled Differential Comment Cancelled Diff Path Review Cancelled Hypersegmented Neuts Cancelled Atypical Lymphocytes Cancelled Reactive Lymphocytes Cancelled Smudge Cells Cancelled Toxic Granulation Cancelled Toxic Vacuolation Cancelled Dohle Bodies Cancelled Beck Rods Cancelled Platelet Estimate Cancelled Plt Morphology Comment Cancelled RBC Morphology Cancelled Polychromasia Cancelled Hypochromasia Cancelled Poikilocytosis Cancelled Basophilic Stippling Cancelled Anisocytosis Cancelled Microcytosis Cancelled Macrocytosis Cancelled Spherocytes Cancelled Sickle Cells Cancelled Target Cells Cancelled Tear Drop Cells Cancelled Ovalocytes Cancelled Stomatocytes Cancelled [place] Bodies Cancelled [place] Cells Cancelled Bite Cells Cancelled Crenated Cell Cancelled Acanthocytes (Spur) Cancelled Rouleaux Cancelled Schistocytes Cancelled Sodium 133 L Potassium 4.2 Chloride 96 L Carbon Dioxide 32.0 Anion Gap 5 BUN 7 Creatinine 0.56 Estim Creat Clear Calc 46.27 Est GFR (MDRD) Af Amer 140 Est GFR (MDRD) Non-Af 115 BUN/Creatinine Ratio 12.6 Glucose 100 Calcium 9.9 Urine Color Yellow Urine Clarity Clear Urine pH 7.0 Ur Specific [place] 1.010 Urine Protein Negative Urine Glucose (UA) Normal Urine Ketones Negative Urine Occult Blood 10 H Urine Nitrite Negative Urine Bilirubin Negative Urine Urobilinogen Normal Ur Leukocyte Esterase Negative Urine RBC 0 SEEN Urine WBC 0 SEEN Ur Squamous Epith Cells 0-5 SEEN Urine Bacteria 0 SEEN Urine Mucus 0 SEEN 11/02/20 Unknown WBC 8.8 Corrected WBC RBC 3.85 L Hgb 11.5 L Hct 35.5 L MCV 92.2 MCH 29.9 MCHC 32.4 RDW Std Deviation 45.0 H RDW Coeff of Reina 13.3 Plt Count 202 MPV 9.5 Immature Gran % (Auto) 0.600 Neut % (Auto) 75.4 H Lymph % (Auto) 12.6 L Upson % (Auto) 10.5 H Eos % (Auto) 0.6 Baso % (Auto) 0.3 Absolute Neuts (auto) 6.6 Absolute Lymphs (auto) 1.10 Total Counted Neutrophils % (Manual) Band Neutrophils % Lymphocytes % (Manual) Monocytes % (Manual) Eosinophils % (Manual) Basophils % (Manual) Metamyelocytes % Myelocytes % Promyelocytes % Blast Cells % Plasma Cell % (Manual) Other Cells % Nucleated RBC % 0 Nucleated RBCs/100 WBC Differential Comment Diff Path Review Hypersegmented Neuts Atypical Lymphocytes Reactive Lymphocytes Smudge Cells Toxic Granulation Toxic Vacuolation Dohle Bodies Beck Rods Platelet Estimate Plt Morphology Comment RBC Morphology Polychromasia Hypochromasia Poikilocytosis Basophilic Stippling Anisocytosis Microcytosis Macrocytosis Spherocytes Sickle Cells Target Cells Tear Drop Cells Ovalocytes Stomatocytes [place] Bodies [place] Cells Bite Cells Crenated Cell Acanthocytes (Spur) Rouleaux Schistocytes Sodium Potassium Chloride Carbon Dioxide Anion Gap BUN Creatinine Estim Creat Clear Calc Est GFR (MDRD) Af Amer Est GFR (MDRD) Non-Af BUN/Creatinine Ratio Glucose Calcium Urine Color Urine Clarity Urine pH Ur Specific [place] Urine Protein Urine Glucose (UA) Urine Ketones Urine Occult Blood Urine Nitrite Urine Bilirubin Urine Urobilinogen Ur Leukocyte Esterase Urine RBC Urine WBC Ur Squamous Epith Cells Urine Bacteria Urine Mucus Discharge Plan Triage Chief Complaint: Complaint ED Provider: Jaydon Paez Dx/Rx/DC Orders Clinical Impression: Acute pyelonephritis Instructions: ED Pyelonephritis, Female (Adult) Prescriptions: New hydrocodone-acetaminophen [hydrocodone-acetaminophen] 1 TABLET tablet 1 tab PO Q6H PRN PRN (Reason: Pain) 3 Days Qty: 10 RF: 0 ciprofloxacin HCl [ciprofloxacin HCl] 500 MG tablet 500 mg PO BID Qty: 14 RF: 0 Continued losartan 100 mg tablet 100 mg PO DAILY RF: 0 gabapentin 600 MG tablet 800 mg PO TIDCM RF: 0 ipratropium-albuterol 3 ML solution for nebulization 3 ml inhalation Q6HWA.RT RF: 0 albuterol sulfate 1 PUFF inhaler 2 puff inhalation Q6H PRN PRN (Reason: Sob &/Or Wheezing) RF: 0 metoprolol tartrate 50 mg tablet 50 mg PO TID RF: 0 budesonide 0.5 MG/2 ML suspension for nebulization 0.5 mg inhalation BID RF: 0 amlodipine 2.5 MG tablet 2.5 mg PO DAILY RF: 0 albuterol sulfate 2.5 MG/3 ML solution for nebulization 2.5 mg inhalation Q2H PRN PRN (Reason: DYSPNEA) RF: 0 acetaminophen 500 MG tablet 1,000 mg PO Q6H PRN PRN (Reason: Pain Score 1-3/10) RF: 0 ondansetron 4 MG tablet 4 mg PO Q8H PRN PRN (Reason: NAUSEA) Qty: 21 RF: 0 aspirin 81 MG tablet,chewable 81 mg PO BID Qty: 20 RF: 0 promethazine 25 MG tablet 25 mg PO Q6H PRN PRN (Reason: Nausea) RF: 0 pantoprazole 40 MG tablet 40 mg PO DAILY RF: 0 mirtazapine 30 MG tablet 30 mg PO QHS RF: 0 atorvastatin 20 MG tablet 20 mg PO QHS RF: 0 clopidogrel 75 MG tablet 75 mg PO DAILY RF: 0 Discontinued nitrofurantoin monohyd/m-cryst 100 mg capsule 100 mg PO BID RF: 0 Primary Care Provider: Irasema Jonas Referrals: Irasema Jonas MD [Primary Care Provider] - 3-5 Days if not improving Disposition Disposition: Home, Self Care
[2020-11-02 10:46] VITALS: BP 167/87; PULSE 94; PULSE 96; RESP 18; RESP 20; TEMP 37; O2SAT 99
[2020-11-02 12:03] VITALS: BP 151/88; PULSE 106; RESP 16; TEMP 36.6; O2SAT 98
[2020-11-02 12:06] LABS: Anion Gap 5 (5-15); BUN 7 mg/dL (7-18); BUN/Creat Ratio 12.6 RATIO (10-20); Calcium,Total 9.9 mg/dL (8.5-10.1); Chloride 96 mmol/L (98-107); Creatinine, Serum 0.56 mg/dL (0.55-1.02); EST Glomerular Filtration Rate 115 mL/min (>60); Est Glom Filt Rate - Afr Amer 140 mL/min (>60); Estimated Creatinine Clearance 46.27 ml/min; Glucose 100 mg/dL (74-106); Potassium 4.2 mmol/L (3.5-5.1); Sodium Level 133 mmol/L (136-145)
[2020-11-02] MEDS: Morphine 4 MG/ML Syringe IM (12:06)
[2020-11-02] MEDS: Ketorolac 15 MG/ML Vial IM (12:07)
[2020-11-02] MEDS: Ondansetron ODT 4 MG Tablet 8 MG PO (12:11)
[2020-11-02] MEDS: Ciprofloxacin 500 MG Tablet PO (12:11)
[2020-11-02 12:14] VITALS: BP 151/88; PULSE 106; RESP 18; TEMP 37.1; O2SAT 96
[2020-11-02 12:28] LABS: Bacteria 0 SEEN /hpf (None Seen); Mucous, Urine 0 SEEN /hpf (<or=2+); Red Blood Cells-Urine 0 SEEN /hpf (0-5); White Blood Cells 0 SEEN /hpf (0-5)
[2020-11-02 12:30] LABS: Color, Urine Yellow (Yellow); Glucose, Dipstick Normal (Normal); Ketone-Dipstick Negative (Negative); Leukocyte Esterase-Dipstick Negative /ul (Negative); Nitrite-Dipstick Negative (Negative); Occult Blood-Urine 10 /ul (Negative); Protein-Dipstick Negative (Negative); Urine Bilirubin Dipstick Negative (Negative); Urine Clarity Clear (Clear); Urine Urobilinogen Normal (Normal)
[2020-11-02 12:47] LABS: Squamous Epithelial Cells - UA 0-5 SEEN /hpf (5-10)
[2020-11-02 13:03] LABS: Absolute Neutrophil Count 6.6 X10^3/uL (2.0-7.7); Basophil# 0.03 X10^3/uL; Basophil% 0.3 % (0-1); Eosinophil# 0.05 X10^3/uL; Eosinophils% 0.6 % (0-5); Hematocrit 35.5 % (37-47); Hemoglobin 11.5 g/dL (12.0-15.0); Lymphocyte % 12.6 % (19-41); Mean Corp Hgb Conc 32.4 g/dL (32-36); Mean Corpuscular Hgb 29.9 pg (27.0-32.0); Mean Corpuscular Volume 92.2 fL (81-99); Mean Platelet Vol. 9.5 fl (6.2-12.0); Monocyte# 0.92 X10^3/uL; Monocyte% 10.5 % (0-10); NRBC Flagged by Analyzer 0 % (0-5); Neutrophil % 75.4 % (47-70); Platelet Count 202 K/mm3 (150-450); RBC Distribution Width CV 13.3 % (11.6-14.6); Red Blood Count 3.85 M/mm3 (4.2-5.4); White Blood Count 8.8 K/mm3 (4.4-11.0)
[2020-11-02] MEDS: HYDROcodone Bitartrate/Apap 5/325 Tablet PO (13:17)
== END 2020-11-02 13:23 | disposition home or self-care (01) ==
PROVIDERS: Emergency Provider Emergency Medicine; PCP Internal Medicine
DX: N10 Acute pyelonephritis (principal); I11.0 Hypertensive heart disease with heart failure; I50.32 Chronic diastolic (congestive) heart failure; J44.9 Chronic obstructive pulmonary disease, unspecified; E11.42 Type 2 diabetes mellitus with diabetic polyneuropathy; E11.51 Type 2 diabetes mellitus with diabetic peripheral angiopathy without gangrene; E78.5 Hyperlipidemia, unspecified; M81.0 Age-related osteoporosis without current pathological fracture; K21.9 Gastro-esophageal reflux disease without esophagitis; I25.2 Old myocardial infarction; G40.909 Epilepsy, unspecified, not intractable, without status epilepticus; F17.210 Nicotine dependence, cigarettes, uncomplicated; Z79.82 Long term (current) use of aspirin; Z79.02 Long term (current) use of antithrombotics/antiplatelets; Z79.899 Other long term (current) drug therapy; Z87.442 Personal history of urinary calculi; Z87.440 Personal history of urinary (tract) infections; Z86.73 Personal history of transient ischemic attack (TIA), and cerebral infarction without residual deficits
CPT/HCPCS: 80048; 81001; 85025; 96372; 99285; J7030; A4216; J2405

== ENCOUNTER 2020-11-11 15:42 | Emergency (ER) | payer MEDICARE, MEDICAID, SELFPAY ==
[2020-11-11 15:44] VITALS: BP 147/75; PULSE 70; RESP 16; TEMP 36.9; O2SAT 92; BMI 27.0
--- NOTE | 2020-11-11 16:47 | CT_ITS ---
EXAM: CT ABDOMEN AND PELVIS WITHOUT INTRAVENOUS CONTRAST CLINICAL INDICATION: flank pain TECHNIQUE: Helically acquired images were obtained of the abdomen and pelvis without intravenous contrast. This CT exam was performed using one or more of the following dose reduction techniques: automated exposure control, adjustment of the mA and/or kV according to patient size, and/or use of iterative reconstruction technique. This report was created using [email or web address] report generation technology. COMPARISON: 02/15/2017 ct chest and ctap of 12.14.18 FINDINGS: LOWER THORAX: Unremarkable. Lung bases are clear. No cardiomegaly. No significant pericardial effusion. ABDOMEN: LIVER: Unremarkable. Homogeneous. GALLBLADDER AND BILE DUCTS: Unremarkable. No calcified gallstones. No gallbladder distention or wall edema. No intra- or extrahepatic biliary ductal dilation. PANCREAS: Unremarkable. No focal cystic mass. SPLEEN: Unremarkable. Normal size without focal cystic or solid mass. ADRENALS: Unremarkable. No nodules. KIDNEYS AND URETERS: Atrophic right kidney. No hydronephrosis. STOMACH AND BOWEL: There are multiple diverticuli of the colon. There is diverticulosis but no radiographic signs for diverticulitis. Stool throughout the colon. There is an umbilical hernia containing fat. There is no bowel involvement. There is no incarceration. There is no findings suggesting that this is causing a bowel obstruction. PELVIS: APPENDIX: No evidence of acute appendicitis. BLADDER: Unremarkable. REPRODUCTIVE: The uterus is not visualized and is most likely surgically absent. ABDOMEN and PELVIS: INTRAPERITONEAL SPACE: Unremarkable. No ascites or other fluid collection. No free air. BONES/JOINTS: There is metallic hardware noted in the left hip. Healed left inferior pubic ramus fracture. Bilateral iliac stent graft in place. Stable compression deformity of L5. No suspicious lytic or blastic abnormality. SOFT TISSUES: 13 mm nodule in the right lower lobe. This has fatty components is related to the [place] hernia. There is stable. Left gluteal injection granuloma. Right gluteal injection granuloma. VASCULATURE: There are calcifications of the abdominal aorta. This is consistent for atherosclerotic disease. There is no abdominal aortic aneurysm. LYMPH NODES: Unremarkable. No enlarged lymph nodes. CT/Abdomen/Pelvis without Cont IMPRESSION: 1. There are multiple diverticuli of the colon. There is diverticulosis but no radiographic signs for diverticulitis. 2. Constipation. Electronically Signed: Otoniel Chambers MD at 18:02 EDT , Service support ,
--- NOTE | 2020-11-11 16:49 | EDS_ITS ---
HPI HPI - GI History of Present Illness Chief Complaint: Flank Pain Informant: patient and spouse/S.O. Abdominal Pain/Flank Pain Onset: Weeks Context: Gradual Onset Timing: Continuous Current Severity: Mild Maximum Severity: Mild Nausea/Vomiting/Emesis GI Symptom: Positive for Nausea and Vomiting Onset: Days Quality: Positive for Nonbilious Severity: Mild Diarrhea/Melena/Hematochezia GI Symptom: Negative for Diarrhea, Melena and Hematochezia Associated Symptoms Associated Symptoms: Positive for Dysuria; Negative for Frequency and Hematuria Narrative Narrative: 62-year-old female history of prior stroke, [place], vascular disease with stents on Plavix and history of kidney stones. She is per had a prior hysterectomy, appendectomy and cholecystectomy. States she previously was on Macrodantin and then more recently on Cipro states that she did not feel any better and she has bilateral flank pain. Associated nausea vomiting. No diarrhea or fever. No gross hematuria. Recent Illness/Hospitalization: No PFSH PFS Medical History (Updated 11/11/20 @ 18:[address] Barry Rodriguez MD) Abdominal pain Acute kidney injury Anemia Appetite loss Atherosclerosis of [place] artery of left lower extremity Cerebrovascular disease Chronic diastolic (congestive) heart failure Chronic hypoxemic respiratory failure Chronic ulcer of left foot with fat layer exposed Closed left hip fracture COPD (chronic obstructive pulmonary disease) COPD (chronic obstructive pulmonary disease) Debility Diabetes Diabetic polyneuropathy Elevated troponin Essential (primary) hypertension Foot ulcer, left Fracture of fifth toe, left, closed GERD (gastroesophageal reflux disease) Hammer toe of left foot History of CVA (cerebrovascular accident) History of non-ST elevation myocardial infarction (NSTEMI) (05/29/19) Hyperlipidemia Hyponatremia Insomnia Left humeral fracture Neuropathic pain Nicotine dependence Osteoporosis Other specified peripheral vascular diseases Peripheral arterial occlusive disease Seizure disorder Seizure disorder Shortness of breath Thrombocytopenia Tobacco user Type 2 diabetes mellitus with diabetic polyneuropathy Vertebral compression fracture Home Medications albuterol sulfate 2 puff INHALATION Q6H PRN PRN 04/05/17 [History Last Taken Unknown] gabapentin 800 mg PO TIDCM 04/05/17 [History Last Taken 01/22/20] ipratropium-albuterol 3 ml INHALATION Q6HWA.RT 04/05/17 [History Last Taken 1 03/31/19] budesonide 0.5 mg INHALATION BID 08/21/17 [History Last Taken 01/29/20] metoprolol tartrate 50 mg tablet 50 mg PO TID tab 10/18/17 [History Last Taken 01/29/20 08:30] amlodipine 2.5 mg PO DAILY 05/29/19 [History Last Taken 01/22/20] albuterol sulfate 2.5 mg INHALATION Q2H PRN PRN vial.neb. 06/01/19 [Rx Last Taken Unknown] acetaminophen 1,000 mg PO Q6H PRN PRN tab 06/16/19 [Rx Last Taken Unknown] aspirin 81 mg PO BID #20 tab.chew 06/16/19 [Rx Last Taken 01/22/20] ondansetron 4 mg PO Q8H PRN PRN #21 tab 06/16/19 [Rx Last Taken Unknown] losartan 100 mg tablet 100 mg PO DAILY tab 06/23/19 [History Last Taken 01/22/20] atorvastatin 20 mg PO QHS 01/29/20 [History Last Taken 01/22/20] clopidogrel 75 mg PO DAILY 01/29/20 [History Last Taken 01/22/20] mirtazapine 30 mg PO QHS 01/29/20 [History Last Taken 01/22/20] pantoprazole 40 mg PO DAILY 01/29/20 [History Last Taken 01/22/20] promethazine 25 mg PO Q6H PRN PRN 01/29/20 [History Last Taken Unknown] Allergy/AdvReac Type Severity Reaction Status Date / Time pregabalin [From Lyrica] Allergy Rash Verified 11/11/20 15:47 duloxetine [From Cymbalta] AdvReac Vomiting Verified 11/11/20 15:47 sertraline HCl [From Zoloft] AdvReac MAKES ME Verified 11/11/20 15:47 CRAZY Family History Mother CVA (cerebral vascular accident) Surgical History abdominal aorta endovascular stent graft bilateral femoral endarterectomy bilateral iliac stenting History of above knee amputation (08/28/17) History of appendectomy History of bilateral carotid endarterectomy History of cholecystectomy (2019) History of hemiarthroplasty of left hip (05/29/19) History of hysterectomy Social History Smoking Status: Current some day smoker tobacco type: cigarettes alcohol intake: never caffeine: Yes Type: coffee Number of servings: 1 ROS ROS ED ROS Narrative Flank pain. Dysuria. Review of Systems ROS Unobtainable: Denies due to encephalopathy Constitutional Constitutional ED: Denies chills, fever(s) or subjective ENT ENT ED: Denies ear pain or sore throat Cardiovascular Cardiovascular: Denies chest pain Respiratory/Chest Respiratory/Chest: Reports dyspnea; Denies cough Gastrointestinal Gastrointestinal: Reports nausea and vomiting; Denies abdominal pain or diarrhea Genitourinary Genitourinary ED: Reports dysuria Musculoskeletal Musculoskeletal: Denies myalgias Integumentary Denies rash Neurologic Neurologic: Denies headache(s) Psychiatric Psychiatric: Denies depression Endocrine Endocrinology: Denies polyuria Hematologic/Lymphatic Hematologic/Lymphatic: Denies easy bruising Allergic/Immunologic Allergic/Immunologic ED: Denies urticaria EXAM Physical Exam Narrative Exam Narrative: 70-year-old female no acute distress vital signs stable afebrile she is chronically on oxygen on 3 L she is 92%. She has a history of COPD. H EENT exam without dentition. Moist mucous membranes. Lungs coarse breath sounds bilaterally. Consistent with COPD. Heart regular rate and rhythm rate about 70. Abdomen soft nondistended normal bowel sounds no peritoneal signs. Nondistended no signs of obstruction. Moving all 4 extremities. Nontender no edema. 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 Due to vascular disease. Back she has mild CVA tenderness. She is got a significantly kyphotic spine. Const Vital Signs: 11/11/20 15:44 Temperature 98.4 F Temperature Source Temporal Pulse Rate 70 Respiratory Rate 16 Blood Pressure 147/75 H Blood Pressure Mean 99 Pulse Ox 92 Oxygen Delivery Method Nasal Cannula Oxygen Flow Rate (L/min) 3 Positive well nourished and well developed; Negative for obese, cachectic, contractures or unkempt General Appearance ED: well developed and NAD; Negative for unkempt, cachectic or contractures Nutritional Appearance: Negative for cachectic or obese HEENT Reports moist mucous membranes normocephalic and atraumatic; Negative for trauma or tenderness Eyes PERRL and EOMs intact bilaterally Neck no lymphadenopathy and supple Resp normal respiratory effort and No clear to auscultation bilaterally Resp Narrative: Coarse bilaterally. Auscultation: Negative for rales, rhonchi or wheezes Cardio regular rate, regular rhythm, S1 normal heart sound, S2 normal heart sound and no murmurs Rate: bradycardia GI non-tender, non-distended and no masses Auscultation: normoactive bowel sounds Palpation: soft; Negative for tender, guarding or rigid Back/Spine no CVA tenderness General Back: Negative for CVA tenderness Extremity full ROM General Extremety ED: Negative for edema or tenderness General Extremity: Negative for edema Neuro moves all extremities Sensorium / Orientation: alert, oriented to person, oriented to place and oriented to time; Negative for orientation impaired, confused, lethargic or stuporous Psych mental status grossly normal Appearance: Negative for unkempt Skin Lesions: no lesions Rashes: no rashes MDM MDM MDM Narrative Medical decision making narrative: 62-year-old female complaining of flank pain. Has been on 2 different antibiotics Macrodantin and Cipro for reported UTIs. She denies fever. She has had nausea vomiting. Labs are being obtained along with a CAT scan and should be given morphine and Zofran for pain and nausea. Repeat exam patient is doing well. Her labs are unremarkable and no significant changes. Her urine shows no signs of infection. And her CAT scan shows chronic changes but no acute stones or any type of obstructive uropathy. She will be discharged home with outpatient follow-up. Lab Data Attestation: I reviewed the patient's lab results. Lab results narrative: CBC shows a white count of 5. Hemoglobin 11.1. Platelets of 268. Electrolytes sodium 131. Gap of 8. Creatinine 0.5. Liver enzymes unremarkable alkaline phosphatase 129. Urinalysis is negative. Her CAT scan showed constipation but no stones. Unremarkable. Read by the radiology. Labs: Laboratory Results - last 24 hr 11/11/20 11/11/20 11/11/20 17:03 17:25 17:25 WBC 5.1 RBC 3.79 L Hgb 11.1 L Hct 35.4 L MCV 93.4 MCH 29.3 MCHC 31.4 L RDW Std Deviation 45.1 H RDW Coeff of Reina 13.2 Plt Count 268 MPV 9.2 Immature Gran % (Auto) 0.600 Neut % (Auto) 57.1 Lymph % (Auto) 24.2 [place] % (Auto) 15.4 H Eos % (Auto) 2.3 Baso % (Auto) 0.4 Absolute Neuts (auto) 2.9 Absolute Lymphs (auto) 1.24 Nucleated RBC % 0 Sodium 131 L Potassium 4.1 Chloride 92 L Carbon Dioxide 31.0 Anion Gap 8 BUN 11 Creatinine 0.55 Estim Creat Clear Calc 48.19 Est GFR (MDRD) Af Amer 141 Est GFR (MDRD) Non-Af 117 BUN/Creatinine Ratio 20.0 Glucose 105 Calcium 9.3 Total Bilirubin 0.30 AST 23 ALT 26 Alkaline Phosphatase 129 H Total Protein 8.6 H Albumin 3.5 Globulin 5.1 H Albumin/Globulin Ratio 0.7 L Urine Color Yellow Urine Clarity Clear Urine pH 7.0 Ur Specific [place] 1.010 Urine Protein Negative Urine Glucose (UA) Normal Urine Ketones Negative Urine Occult Blood Negative Urine Nitrite Negative Urine Bilirubin Negative Urine Urobilinogen Normal Ur Leukocyte Esterase Negative Urine RBC 0 SEEN Urine WBC 0 SEEN Ur Squamous Epith Cells 0-5 SEEN Urine Bacteria 0 SEEN Urine Mucus 0 SEEN Radiography Diagnostic Testing: Radiology Impression Abdomen/Pelvis CT 11/11/20 16:47 IMPRESSION: 1. There are multiple diverticuli of the colon. There is diverticulosis but no radiographic signs for diverticulitis. 2. Constipation. Electronically Signed: Otoniel Chambers MD at 18:02 EDT , Service support , Discharge Plan Triage Chief Complaint: Flank Pain ED Provider: Barry Rodriguez Dx/Rx/DC Orders Clinical Impression: Acute flank pain Instructions: ED Flank Pain, Uncertain Cause Prescriptions: No Action losartan 100 mg tablet 100 mg PO DAILY RF: 0 gabapentin 600 MG tablet 800 mg PO TIDCM RF: 0 ipratropium-albuterol 3 ML solution for nebulization 3 ml inhalation Q6HWA.RT RF: 0 albuterol sulfate 1 PUFF inhaler 2 puff inhalation Q6H PRN PRN (Reason: Sob &/Or Wheezing) RF: 0 metoprolol tartrate 50 mg tablet 50 mg PO TID RF: 0 budesonide 0.5 MG/2 ML suspension for nebulization 0.5 mg inhalation BID RF: 0 amlodipine 2.5 MG tablet 2.5 mg PO DAILY RF: 0 albuterol sulfate 2.5 MG/3 ML solution for nebulization 2.5 mg inhalation Q2H PRN PRN (Reason: DYSPNEA) RF: 0 acetaminophen 500 MG tablet 1,000 mg PO Q6H PRN PRN (Reason: Pain Score 1-3/10) RF: 0 ondansetron 4 MG tablet 4 mg PO Q8H PRN PRN (Reason: NAUSEA) Qty: 21 RF: 0 aspirin 81 MG tablet,chewable 81 mg PO BID Qty: 20 RF: 0 promethazine 25 MG tablet 25 mg PO Q6H PRN PRN (Reason: Nausea) RF: 0 pantoprazole 40 MG tablet 40 mg PO DAILY RF: 0 mirtazapine 30 MG tablet 30 mg PO QHS RF: 0 atorvastatin 20 MG tablet 20 mg PO QHS RF: 0 clopidogrel 75 MG tablet 75 mg PO DAILY RF: 0 Primary Care Provider: Irasema Jonas Referrals: Irasema Jonas MD [Primary Care Provider] - 3-5 Days if not improving Activity Restrictions/Additional Instructions: Follow-up with primary care physician. Your labs and CAT scan today were unremarkable. Your urine shows no signs of infection. There is no signs of any kidney stones or other cause your pain. Disposition Disposition: Home, Self Care
[2020-11-11 17:07] LABS: Bacteria 0 SEEN /hpf (None Seen); Mucous, Urine 0 SEEN /hpf (<or=2+); Red Blood Cells-Urine 0 SEEN /hpf (0-5); White Blood Cells 0 SEEN /hpf (0-5)
[2020-11-11] MEDS: morphine 8 MG/ML Syringe 6 MG IV ×2 (17:27→18:50)
[2020-11-11] MEDS: 0.9% Normal Saline 1,000 ML 1000 ML IV (17:27)
[2020-11-11] MEDS: Ondansetron 4 MG/2 ML Vial IV (17:27)
[2020-11-11 17:36] LABS: Color, Urine Yellow (Yellow); Glucose, Dipstick Normal (Normal); Ketone-Dipstick Negative (Negative); Leukocyte Esterase-Dipstick Negative /ul (Negative); Nitrite-Dipstick Negative (Negative); Occult Blood-Urine Negative /ul (Negative); Protein-Dipstick Negative (Negative); Urine Bilirubin Dipstick Negative (Negative); Urine Clarity Clear (Clear); Urine Urobilinogen Normal (Normal)
[2020-11-11 17:42] LABS: Absolute Lymphocyte Count 1.24 X10^3/uL (0.83-4.51); Absolute Neutrophil Count 2.9 X10^3/uL (2.0-7.7); Basophil# 0.02 X10^3/uL; Basophil% 0.4 % (0-1); Eosinophil# 0.12 X10^3/uL; Eosinophils% 2.3 % (0-5); Hematocrit 35.4 % (37-47); Hemoglobin 11.1 g/dL (12.0-15.0); Lymphocyte # 1.24 X10^3/ul (0.83-4.51); Lymphocyte % 24.2 % (19-41); Mean Corp Hgb Conc 31.4 g/dL (32-36); Mean Corpuscular Hgb 29.3 pg (27.0-32.0); Mean Corpuscular Volume 93.4 fL (81-99); Mean Platelet Vol. 9.2 fl (6.2-12.0); Monocyte# 0.79 X10^3/uL; Monocyte% 15.4 % (0-10); NRBC Flagged by Analyzer 0 % (0-5); Neutrophil # 2.93 X10^3/uL (2.7-7.7); Neutrophil % 57.1 % (47-70); Platelet Count 268 K/mm3 (150-450); RBC Distribution Width CV 13.2 % (11.6-14.6); RBC Distribution Width SD 45.1 fl (35.1-43.9); Red Blood Count 3.79 M/mm3 (4.2-5.4); White Blood Count 5.1 K/mm3 (4.4-11.0)
[2020-11-11 17:51] LABS: Squamous Epithelial Cells - UA 0-5 SEEN /hpf (5-10)
[2020-11-11 18:20] LABS: ALB/GLOB Ratio 0.7 RATIO (0.9-2.4); AST(SGOT) 23 U/L (15-37); Alanine Aminotransfer ALT/SGPT 26 U/L (13-56); Albumin, Serum 3.5 g/dL (3.2-5.0); Alkaline Phosphatase 129 U/L (45-117); Anion Gap 8 (5-15); BUN 11 mg/dL (7-18); Calcium,Total 9.3 mg/dL (8.5-10.1); Chloride 92 mmol/L (98-107); Creatinine, Serum 0.55 mg/dL (0.55-1.02); EST Glomerular Filtration Rate 117 mL/min (>60); Est Glom Filt Rate - Afr Amer 141 mL/min (>60); Estimated Creatinine Clearance 48.19 ml/min; Globulin 5.1 g/dL (2.2-4.2); Glucose 105 mg/dL (74-106); Potassium 4.1 mmol/L (3.5-5.1); Protein, Total 8.6 g/dL (6.4-8.2); Sodium Level 131 mmol/L (136-145)
[2020-11-11 19:14] VITALS: BP 121/61; PULSE 76; RESP 18; O2SAT 99
== END 2020-11-11 19:15 | disposition home or self-care (01) ==
PROVIDERS: Emergency Provider Emergency Medicine; PCP Internal Medicine
DX: R10.9 Unspecified abdominal pain (principal); F17.210 Nicotine dependence, cigarettes, uncomplicated; I25.2 Old myocardial infarction; I70.209 Unspecified atherosclerosis of native arteries of extremities, unspecified extremity; I11.0 Hypertensive heart disease with heart failure; I50.32 Chronic diastolic (congestive) heart failure; J44.9 Chronic obstructive pulmonary disease, unspecified; K21.9 Gastro-esophageal reflux disease without esophagitis; Z79.82 Long term (current) use of aspirin; Z79.899 Other long term (current) drug therapy; Z86.73 Personal history of transient ischemic attack (TIA), and cerebral infarction without residual deficits; Z87.442 Personal history of urinary calculi
CPT/HCPCS: 74176; 80053; 81001; 85025; 96374; 96375; 96376; 99285; J7030; A4216; J2405

== ENCOUNTER → 2020-12-09 06:48 | Outpatient (CLI) | payer MEDICARE, MEDICAID, SELFPAY ==
--- NOTE | 2020-12-09 06:52 | ECHOD_ITS ---
Reason For Study: VALVE DISEASE ASSESSMENT Procedure This was a 2D Doppler, Color Flow transthoracic echocardiogram. The study was technically difficult. Exam performed in department. Left Ventricle Normal LV size. Left ventricular systolic function is normal. The estimated ejection fraction is 60 %. No regional wall motion abnormalities noted. Right Ventricle Normal RV size. Normal systolic function. Atria The left atrium is mildly enlarged. Normal right atrium. Mitral Valve Normal mitral valve. Mild (1+) eccentric mitral valve insufficiency. Tricuspid Valve Normal tricuspid valve. Mild (1+) tricuspid valve insufficiency. Pulmonary artery systolic pressure is 38 mmHg. Aortic Valve Peak aortic valve gradient 14 mmHg. Mean aortic valve gradient 6 mmHg. Pulmonic Valve Normal pulmonic valve. Great Vessels Normal aortic root. The pulmonary artery is normal size. Inferior vena cava collapse with respiration. Pericardium/Pleural No pericardial effusion. MMode/2D Measurements & Calculations LVIDd: 3.6 cm IVSd: 1.3 cm LVOT diam: 2.1 cm LVIDs: 2.5 cm LVPWd: 1.1 cm LVOT area: 3.3 cm2 RVDd: 3.3 cm FS: 30.5 % Ao root diam: 2.7 cm LAV(MOD-bp): 67.7 ml LVAd ap4: 20.3 cm2 LAV(MOD-bp) Indexed: 44.5 ml/m2 LVLd ap4: 7.1 cm LAV(MOD-sp2): 56.7 ml EDV(MOD-sp4): 47.7 ml LAV(MOD-sp4): 75.8 ml EDV(sp4-el): 49.7 ml LVAs ap4: 11.8 cm2 LVLs ap4: 5.9 cm ESV(MOD-sp4): 20.7 ml ESV(sp4-el): 20.0 ml EF(MOD-sp4): 56.6 % EF(sp4-el): 59.8 % LVAd ap2: 14.5 cm2 SV(MOD-sp4): 27.0 ml SV(MOD-sp2): 16.4 ml LVLd ap2: 6.1 cm EDV(MOD-sp2): 30.0 ml EDV(sp2-el): 29.2 ml LVAs ap2: 8.3 cm2 LVLs ap2: 4.8 cm ESV(MOD-sp2): 13.6 ml ESV(sp2-el): 12.3 ml EF(MOD-sp2): 54.6 % SV(sp4-el): 29.7 ml LA dimension(2D): 3.8 cm LA A4 area: 22.9 cm2 RA A4 area: 13.3 cm2 Time Measurements MV dec time: 0.19 sec Doppler Measurements & Calculations MV E max constantino: 78.5 cm/sec Lat Peak E' Constantino: 5.7 cm/sec Med Peak E' Constantino: 3.6 cm/sec MV A max constantino: 98.7 cm/sec E/E' lat: 13.8 E/E' med: 21.7 MV E/A: 0.80 Ao V2 max: 190.6 cm/sec LV V1 max: 126.9 cm/sec SV(LVOT): 92.7 ml Ao max P.6 mmHg LV V1 max P.4 mmHg Ao V2 mean: 121.6 cm/sec LV V1 mean P.3 mmHg Ao mean P.6 mmHg LV V1 mean: 86.7 cm/sec Ao V2 VTI: 38.9 cm LV V1 VTI: 27.9 cm BATOOL(I,D): 2.4 cm2 BATOOL(V,D): 2.2 cm2 PA V2 max: 111.4 cm/sec TR max constantino: 288.0 cm/sec TR max P.2 mmHg ECHO/Echo Complete Interpretation Summary Normal LV size. Left ventricular systolic function is normal. The left atrium is mildly enlarged. Pulmonary artery systolic pressure is 38 mmHg. The estimated ejection fraction is 60 %. Mild (1+) tricuspid valve insufficiency. Ordering Physician: Aileen^Yoan^H^^PRINTED [employer] BOARDS SOLDER LEVELER, PRINTED [employer]AR[employer] SOLDER LEVELER-C Referring Physician: Irasema Jonas Performed By: Sherly Garrett, LAURA, RVT
--- NOTE | 2020-12-09 12:27 | STRESSREP ---
Stress Test Report Pharmacologic myocardial perfusion stress test. 70-year-old lady with a history of chest pain. Stress protocol: Resting EKG demonstrates normal sinus rhythm with a rate of 64 bpm normal intervals are noted. 0.4 mg of regadenoson was infused per usual protocol followed by rapid venous saline flush injection continuous EKG monitoring was performed. The maximum heart rate attained was 103 bpm which was 67% of max infected heart rate the maximum workload was 1 metabolic equivalent. At rest there were no ST or T wave changes noted to suggest abnormal flow reserve and at peak infusion nonspecific ST changes were noted with did not meet the criteria for ischemia. No clinical angina was noted. The peak blood pressure was 172/88 mmHg. Myocardial perfusion protocol. 11.1 mCi of technetium 99m sestamibi was injected at rest. 0.4 mg of regadenoson was infused. At peak infusion 32.7 mCi of technetium 99m sestamibi was injected stress images were obtained stress and rest images were reconstructed and compared in the short axis vertical long horizontal long axis. Gated images were also obtained per Perfusion SPECT analysis: Review of the stress images demonstrate normal uptake of tracer noted in all areas of the myocardium. The resting images demonstrate normal uptake of tracer noted in all areas of the myocardium. No areas of reversibility are noted suggest ischemia and no previous infarct is noted. Gated SPECT analysis: The gated ejection fraction is noted to be 82%. Conclusion: Normal pharmacologic myocardial perfusion stress test. Preserved ejection fraction.
== END ==
PROVIDERS: PCP Internal Medicine; Referring Provider Nurse Practitioner Family; Visit Provider Nurse Practitioner Family
DX: R07.9 Chest pain, unspecified (principal); R39.89 Other symptoms and signs involving the genitourinary system; I51.7 Cardiomegaly; I50.32 Chronic diastolic (congestive) heart failure; I25.2 Old myocardial infarction; J44.9 Chronic obstructive pulmonary disease, unspecified; F17.219 Nicotine dependence, cigarettes, with unspecified nicotine-induced disorders
CPT/HCPCS: 78452; 93017; 93306; A9500; A4216; J2785

== ENCOUNTER 2021-10-06 22:59 | Inpatient (IN) | payer MEDICARE, MEDICAID, SELFPAY ==
[2021-10-06 23:04] VITALS: BP 68/30; PULSE 43; RESP 14; TEMP 36.4; O2SAT 100; BMI 26.2
[2021-10-06 23:20] VITALS: BP 56/39; PULSE 43; RESP 18; O2SAT 100
--- NOTE | 2021-10-06 23:46 | ED.VIS.GI ---
HPI HPI - GI History of Present Illness Chief Complaint: Abd Pain Informant: patient Abdominal Pain/Flank Pain Onset: Today Context: Gradual Onset Timing: Continuous Quality: Aching, Cramping and Stabbing Location: Diffuse Current Severity: Moderate Maximum Severity: Moderate Worsened by: Nothing Relieved by: Nothing Nausea/Vomiting/Emesis GI Symptom: Positive for Nausea and Vomiting Onset: Today Severity: Moderate Diarrhea/Melena/Hematochezia GI Symptom: Negative for Diarrhea, Melena or Hematochezia Associated Symptoms Associated Symptoms: Negative for Dysuria, Frequency, Hematuria or Urgency Narrative Narrative: 71-year-old female extensive past medical history including diabetes, anemia, COPD, MO, seizures, thrombocytopenia, peripheral arterial disease with left leg [id number] amputation on Plavix. Prior abdominal surgeries include appendectomy, hysterectomy, cholecystectomy. She has had prior small bowel obstructions but no surgery for this. Stated today she has had abdominal pain all day with nausea vomiting. Describes the pain is diffuse. She denies any dysuria. She had constipation for a week with limited bowel movements. No melena. No diarrhea. She denies any fever or dysuria. She presents hypotensive. No history of aneurysm. Prior similar symptoms: Yes Recent Illness/Hospitalization: No PFSH PFSH Medical History (Updated 10/07/21 @ 02:[address] Barry Rodriguez MD) Abdominal pain Acute kidney injury Anemia Appetite loss Atherosclerosis of [place] artery of left lower extremity Cerebrovascular disease Chronic diastolic (congestive) heart failure Chronic hypoxemic respiratory failure Chronic ulcer of left foot with fat layer exposed Closed left hip fracture COPD (chronic obstructive pulmonary disease) COPD (chronic obstructive pulmonary disease) Debility Diabetes Diabetic polyneuropathy Elevated troponin Essential (primary) hypertension Foot ulcer, left Fracture of fifth toe, left, closed GERD (gastroesophageal reflux disease) Hammer toe of left foot History of CVA (cerebrovascular accident) History of non-ST elevation myocardial infarction (NSTEMI) (05/29/19) Hyperlipidemia Hyponatremia Insomnia Left humeral fracture Neuropathic pain Nicotine dependence Osteoporosis Other specified peripheral vascular diseases Peripheral arterial occlusive disease Seizure disorder Seizure disorder Shortness of breath Thrombocytopenia Tobacco user Type 2 diabetes mellitus with diabetic polyneuropathy Vertebral compression fracture Home Medications albuterol sulfate 90 mcg/actuation aerosol inhaler 2 puff inhalation Q6H PRN PRN Sob &/Or Wheezing 04/05/17 [History Last Taken Unknown] gabapentin 600 mg tablet 800 mg PO TIDCM PAIN 04/05/17 [History Last Taken 01/22/20] ipratropium 0.5 mg-albuterol 3 mg (2.5 mg base)/3 mL nebulization soln 3 ml inhalation Q6HWA.RT WHEEZING 04/05/17 [History Last Taken 01/29/20] budesonide 0.5 mg/2 mL suspension for nebulization 0.5 mg inhalation BID COPD 08/21/17 [History Last Taken 01/29/20] metoprolol tartrate 50 mg tablet 50 mg PO TID HEART/BP 10/18/17 [History Last Taken 01/29/20 08:30] amlodipine 2.5 mg tablet 2.5 mg PO DAILY bp 05/29/19 [History Last Taken 01/22/20] albuterol sulfate 2.5 mg/3 mL (0.083 %) solution for nebulization 2.5 mg (3 mL) inhalation Q2H PRN PRN DYSPNEA 06/01/19 [Rx Last Taken Unknown] acetaminophen 500 mg tablet 1,000 mg PO Q6H PRN PRN Pain Score 1-3/10 06/16/19 [Rx Last Taken Unknown] aspirin 81 mg chewable tablet 81 mg PO BID heart ##20 06/16/19 [Rx Last Taken 01/22/20] ondansetron 4 mg disintegrating tablet 4 mg PO Q8H PRN PRN NAUSEA #21 tabs 06/16/19 [Rx Last Taken Unknown] losartan 100 mg tablet 100 mg PO DAILY bp 06/23/19 [History Last Taken 01/22/20] atorvastatin 20 mg tablet 20 mg PO QHS cholesterol 01/29/20 [History Last Taken 01/22/20] clopidogrel 75 mg tablet 75 mg PO DAILY antiplatelet 01/29/20 [History Last Taken 01/22/20] mirtazapine 30 mg tablet 30 mg PO QHS SLEEP 01/29/20 [History Last Taken 01/22/20] pantoprazole 40 mg tablet,delayed release 40 mg PO DAILY GERD 01/29/20 [History Last Taken 01/22/20] promethazine 25 mg tablet 25 mg PO Q6H PRN PRN Nausea 01/29/20 [History Last Taken Unknown] Allergy/AdvReac Type Severity Reaction Status Date / Time pregabalin [From Lyrica] Allergy Rash Verified 12/01/20 15:28 duloxetine [From Cymbalta] AdvReac Vomiting Verified 12/01/20 15:28 sertraline HCl [From Zoloft] AdvReac MAKES ME Verified 12/01/20 15:28 CRAZY Family History Mother CVA (cerebral vascular accident) Surgical History abdominal aorta endovascular stent graft bilateral femoral endarterectomy bilateral iliac stenting History of above knee amputation (08/28/17) History of appendectomy History of bilateral carotid endarterectomy History of cholecystectomy (2019) History of hemiarthroplasty of left hip (05/29/19) History of hysterectomy Social History Smoking Status: Current some day smoker tobacco type: cigarettes alcohol intake: never caffeine: Yes Type: coffee Number of servings: 1 ROS ROS ED ROS Narrative Constipation. Abdominal pain. Nausea and vomiting. Review of Systems ROS Unobtainable: Denies due to encephalopathy Constitutional Constitutional ED: Denies chills or fever(s) ENT ENT ED: Denies ear pain Cardiovascular Cardiovascular: Denies chest pain Respiratory/Chest Respiratory/Chest: Denies cough Gastrointestinal Gastrointestinal: Reports abdominal pain, constipation, nausea and vomiting; Denies diarrhea or melena Genitourinary Genitourinary ED: Denies hematuria Musculoskeletal Musculoskeletal: Denies arthralgias Integumentary Denies abscess Neurologic Neurologic: Denies headache(s) Psychiatric Psychiatric: Denies anxiety Endocrine Endocrinology: Denies polydipsia Hematologic/Lymphatic Hematologic/Lymphatic: Denies easy bleeding Allergic/Immunologic Allergic/Immunologic ED: Denies mouth swelling EXAM Physical Exam Narrative Exam Narrative: 71-year-old female initial blood pressure 68/30. She is awake alert however and sitting up tolerating this well. H EENT exam unremarkable. Moist Riis membranes. Normal speech. Neck nontender. Lungs are clear equal symmetrical. Heart rates 43 according to vitals. No murmur appreciated. Abdomen mildly distended. Diffusely tender. Limited decreased bowel sounds. No hernia or mass. No pulsatile mass. Moving all 4 extremities. Her left leg has been amputated well above the knee. Normal motor strength of the upper and right lower extremity. Neurologically she is awake and alert. Const Vital Signs: 10/06/21 23:04 10/06/21 23:20 10/06/21 23:59 Temperature 97.6 F L Temperature Source Oral Pulse Rate 43 L 43 L 44 L Respiratory Rate 14 18 14 Blood Pressure 68/30 L 56/39 L 71/38 L Blood Pressure Mean 42 44 49 Pulse Ox 100 100 97 Oxygen Delivery Method Room Air Room Air Nasal Cannula Oxygen Flow Rate (L/min) 3 10/07/21 00:22 10/07/21 02:12 Temperature Temperature Source Pulse Rate 77 88 Respiratory Rate 20 H 22 H Blood Pressure 119/52 L 123/95 H Blood Pressure Mean 74 104 Pulse Ox 78 97 Oxygen Delivery Method Nasal Cannula Room Air Oxygen Flow Rate (L/min) 3 Positive well nourished and well developed; Negative for obese, cachectic, contractures or unkempt General Appearance ED: well developed; Negative for unkempt, cachectic, contractures, NAD or pallor Nutritional Appearance: Negative for cachectic or obese HEENT Reports moist mucous membranes; Denies dry mucous membranes normocephalic and atraumatic; Negative for trauma or tenderness Mouth ED: No dry mucous membranes Mouth: No dry mucous membranes Eyes PERRL and EOMs intact bilaterally General Eye ED: Negative for pale conjunctiva or scleral icterus Neck no lymphadenopathy, supple and no JVD General: Negative for tenderness Carotids: Negative for other Lymph Lymphatic: Negative for other Resp normal respiratory effort and clear to auscultation bilaterally Effort and Inspection: Negative for respiratory distress or retractions Auscultation: Negative for rales, rhonchi or wheezes Cardio regular rhythm, S1 normal heart sound, S2 normal heart sound and no murmurs; Negative for regular rate Rate: bradycardia GI no masses; Negative for non-tender or non-distended Inspection: abdominal distention Auscultation: hypoactive bowel sounds Palpation: soft and tender; Negative for guarding, rigid, hernia, mass, pulsatile mass or rebound tenderness present Back/Spine no CVA tenderness General Back: Negative for CVA tenderness Cervical Spine: Negative for cervical spine tenderness Thoracic Spine / Upper Back: Negative for thoracic spinal tenderness Lumbar Spine / Lower Back: Negative for lumbar spinal tenderness Coccyx: Negative for other Extremity full ROM General Extremety ED: Negative for edema or tenderness General Extremity: Negative for edema Neuro moves all extremities Sensorium / Orientation: alert, oriented to person, oriented to place and oriented to time; Negative for orientation impaired, confused, lethargic or stuporous Motor Exam: strength 5/5 throughout Psych mental status grossly normal and thought process normal Appearance: Negative for unkempt Attitude: No agitated Mood & Affect: Negative for depressed or anxious Skin no wounds General Skin Exam: Negative for jaundice or pallor Rashes: no rashes Trauma: Negative for abrasion Nails: Negative for discolored MDM MDM MDM Narrative Medical decision making narrative: 71-year-old with abdominal pain. Concern for constipation versus bowel obstruction versus other. She is also hypotensive. She will be treated with IV fluids. 2 large bore IVs. IV fentanyl for pain and Zofran for nausea. CAT scan labs are being obtained. Patient doing much better at 1:45 AM. Her pain is much improved after 2 doses of fentanyl. Her blood pressure is stable and around 150/100 currently. She is feeling better. Labs other than elevated white count are pretty unremarkable. Awaiting the CAT scan results. Her amylase is slightly elevated. But she has a normal lactic acid. Repeat exam patient is currently on the bedside commode. States she does not feel well. Her vital signs are much improved. Given the CAT scan results, her initial hypotension and leukocytosis I will speak to the hospitalist about admission and further evaluation. She does not have a surgical abdomen. She will be given another dose of fentanyl. Lab Data Attestation: I reviewed the patient's lab results. Lab results narrative: CBC shows an elevated white count of 14.1. H&H 10.3 and 34. She has a history of anemia. Platelets are normal at 321. Electrolytes show sodium 131 gap is 6 normal BUN and creatinine is 16 and 0.07. Glucose 113. Lactic acid is normal at 0.4. Liver enzymes are normal except for alkaline phosphatase at 122. Amylase is slightly elevated to 227 lipase is normal at 177. Urinalysis negative with no nitrites nor red or white cells nor bacteria. CAT scan shows infectious or inflammatory colitis. Diverticulosis seen but no diverticulitis. Read by the radiologist. Labs: Laboratory Results - last 24 hr 10/06/21 10/06/21 10/06/21 23:45 23:45 23:50 WBC 14.1 H RBC 3.82 L Hgb 10.3 L Hct 34.0 L MCV 89.0 MCH 27.0 MCHC 30.3 L RDW Std Deviation 45.0 H RDW Coeff of Reina 13.7 Plt Count 321 MPV 9.2 Immature Gran % (Auto) 0.600 Neut % (Auto) 76.8 H Lymph % (Auto) 15.5 L [place] % (Auto) 5.5 Eos % (Auto) 1.3 Baso % (Auto) 0.3 Absolute Neuts (auto) 10.8 H Absolute Lymphs (auto) 2.18 Nucleated RBC % 0 Sodium 131 L Potassium 4.2 Chloride 100 Carbon Dioxide 25.0 Anion Gap 6 BUN 16 Creatinine 0.76 Estim Creat Clear Calc 38.14 Est GFR (MDRD) Af Amer 97 Est GFR (MDRD) Non-Af 80 BUN/Creatinine Ratio 21.1 H Glucose 113 H Lactic Acid 0.4 Calcium 8.0 L Total Bilirubin 0.50 AST 16 ALT 15 Alkaline Phosphatase 122 H Troponin I High Sens 6 Total Protein 7.1 Albumin 3.0 L Globulin 4.1 Albumin/Globulin Ratio 0.7 L Amylase 227 H Lipase 177 Urine Color Urine Clarity Urine pH Ur Specific [place] Urine Protein Urine Glucose (UA) Urine Ketones Urine Occult Blood Urine Nitrite Urine Bilirubin Urine Urobilinogen Ur Leukocyte Esterase Urine RBC Urine WBC Ur Squamous Epith Cells Urine Bacteria Hyaline Casts Urine Mucus 10/07/21 00:40 WBC RBC Hgb Hct MCV MCH MCHC RDW Std Deviation RDW Coeff of [place] Plt Count MPV Immature Gran % (Auto) Neut % (Auto) Lymph % (Auto) [place] % (Auto) Eos % (Auto) Baso % (Auto) Absolute Neuts (auto) Absolute Lymphs (auto) Nucleated RBC % Sodium Potassium Chloride Carbon Dioxide Anion Gap BUN Creatinine Estim Creat Clear Calc Est GFR (MDRD) Af Amer Est GFR (MDRD) Non-Af BUN/Creatinine Ratio Glucose Lactic Acid Calcium Total Bilirubin AST ALT Alkaline Phosphatase Troponin I High Sens Total Protein Albumin Globulin Albumin/Globulin Ratio Amylase Lipase Urine Color Yellow Urine Clarity Clear Urine pH 6.5 Ur Specific [place] 1.010 Urine Protein 30 H Urine Glucose (UA) Normal Urine Ketones 5 H Urine Occult Blood 10 H Urine Nitrite Negative Urine Bilirubin 1 H Urine Urobilinogen 4 H Ur Leukocyte Esterase 25 H Urine RBC 0-5 SEEN Urine WBC 0-5 SEEN Ur Squamous Epith Cells 0-5 SEEN Urine Bacteria 0 SEEN Hyaline Casts 5-10 SEEN Urine Mucus 1+ Radiography Diagnostic Testing: Clinical Impression(s) from Imaging Studies Abdomen/Pelvis CT 10/07/21 00:00 IMPRESSION: Acute infectious/inflammatory colitis involving the descending colon. Sigmoid diverticulosis. No acute diverticulitis. Other chronic findings as above. Electronically Signed: Isaiah Salas MD at 1:50 EDT Reading Location ID and State: [facility] / [place] Tel , Service support , Rhythm Strip Rhythm Strip: Sinus bradycardia Rate: 46 Ectopy: None EKG Initial EKG: Attestation: I personally reviewed and interpreted this EKG as follows: Interpretation: Sinus Rhythm, No Acute Injury Pattern and Sinus Bradycardia Comments: Sinus bradycardia with first-degree AV block NV interval of 238. No acute signs of MO or dysrhythmia otherwise. Discharge Plan Triage Chief Complaint: Abd Pain ED Provider: Barry Rodriguez Dx/Rx/DC Orders Clinical Impression: Abdominal pain, Colitis, Nausea & vomiting, Acute hypotension, History of diabetes mellitus, History of peripheral arterial disease Prescriptions: No Action losartan 100 mg tablet 100 mg PO DAILY gabapentin 600 MG tablet 800 mg PO TIDCM ipratropium-albuterol 3 ML solution for nebulization 3 ml inhalation Q6HWA.RT albuterol sulfate 1 PUFF inhaler 2 puff inhalation Q6H PRN PRN (Reason: Sob &/Or Wheezing) metoprolol tartrate 50 mg tablet 50 mg PO TID budesonide 0.5 MG/2 ML suspension for nebulization 0.5 mg inhalation BID amlodipine 2.5 MG tablet 2.5 mg PO DAILY albuterol sulfate 2.5 MG/3 ML solution for nebulization 2.5 mg inhalation Q2H PRN PRN (Reason: DYSPNEA) 0RF acetaminophen 500 MG tablet 1,000 mg PO Q6H PRN PRN (Reason: Pain Score 1-3/10) 0RF ondansetron 4 MG tablet 4 mg PO Q8H PRN PRN (Reason: NAUSEA) Qty: 21 0RF aspirin 81 MG tablet,chewable 81 mg PO BID Qty: 20 0RF promethazine 25 MG tablet 25 mg PO Q6H PRN PRN (Reason: Nausea) pantoprazole 40 MG tablet 40 mg PO DAILY mirtazapine 30 MG tablet 30 mg PO QHS atorvastatin 20 MG tablet 20 mg PO QHS clopidogrel 75 MG tablet 75 mg PO DAILY Primary Care Provider: Care Physician,No Primary Referrals: Care Physician,No Primary [Primary Care Provider] - Disposition Disposition: Acute Care Hospital [facility]
[2021-10-06 23:52] LABS: Absolute Lymphocyte Count 2.18 X10^3/uL (0.83-4.51); Absolute Neutrophil Count 10.8 X10^3/uL (2.0-7.7); Basophil# 0.04 X10^3/uL; Basophil% 0.3 % (0-1); Eosinophil# 0.18 X10^3/uL; Eosinophils% 1.3 % (0-5); Hemoglobin 10.3 g/dL (12.0-15.0); Lymphocyte # 2.18 X10^3/ul (0.83-4.51); Lymphocyte % 15.5 % (19-41); Mean Corp Hgb Conc 30.3 g/dL (32-36); Mean Platelet Vol. 9.2 fl (6.2-12.0); Monocyte# 0.77 X10^3/uL; Monocyte% 5.5 % (0-10); NRBC Flagged by Analyzer 0 % (0-5); Neutrophil % 76.8 % (47-70); Platelet Count 321 K/mm3 (150-450); RBC Distribution Width CV 13.7 % (11.6-14.6); Red Blood Count 3.82 M/mm3 (4.2-5.4); White Blood Count 14.1 K/mm3 (4.4-11.0)
[2021-10-06] MEDS: 0.9% Normal Saline 1,000 ML 1000 ML IV (23:52)
--- NOTE | 2021-10-06 23:52 | EKG12_ITS ---
Test Reason : DYSRHYTHMIA Blood Pressure : / mmHG Vent. Rate : 046 BPM Atrial Rate : 046 BPM P-R Int : 238 ms QRS Dur : 090 ms QT Int : 450 ms P-R-T Axes : 087 044 058 degrees QTc Int : 393 ms Sinus bradycardia with 1st degree A-V block Septal ME, age undetermined, cannot be excluded Confirmed by RAJI GARCIA, GINA ([id number]), videotape editor LEATHA GONZALEZ ([id number]) on 10/10/2021 7:47:58 AM Referred By: JONO Confirmed By:GINA ALEGRIA MD
[2021-10-06] MEDS: fentaNYL 100 MCG/2 ML Ampul 25 MCG IV (23:53)
[2021-10-06] MEDS: Ondansetron 4 MG/2 ML Vial IV (23:53)
[2021-10-06 23:59] VITALS: BP 71/38; PULSE 44; RESP 14; O2SAT 97
[2021-10-07] VITALS (20 sets, daily range): BP systolic 90–123; BP diastolic 51–95; PULSE 77–107; RESP 16–22; TEMP 36.2–36.9; O2SAT 78–100; BMI 28.8
--- NOTE | 2021-10-07 | CT_ITS ---
STUDY: CT ABDOMEN AND PELVIS WITH CONTRAST REASON FOR EXAM: Female, 71 years old. abd pain RADIATION DOSAGE (If Supplied By Facility): CTDIvol = ( 27.58 ) mGy, DLP = ( 1089.50 ) mGycm TECHNIQUE: Transaxial images were obtained from the dome of the diaphragm to the symphysis pubis without oral contrast. IV 100mL Isovue-[id number] was administered. Sagittal and coronal images were reconstructed. Individualized dose optimization techniques were used for this CT. COMPARISON: 11/11/2020 FINDINGS: Minimal bibasilar dependent atelectasis. Status post cholecystectomy with associated stable mild biliary dilatation. Unremarkable spleen, pancreas, and adrenals. Marked right renal cortical thinning. Small cortical hypodensities in the bilateral kidneys measuring up to 1.5 cm. These are likely simple cysts. No CT evidence of acute appendicitis. Small to moderate amount of retained stool in the colon. Bowel loops nonobstructed. Circumferential wall thickening of the descending colon is seen with surrounding fat stranding. Findings are consistent with acute colitis. Sigmoid diverticulosis. No acute diverticulitis. Marked vascular calcification. No abdominal aortic aneurysm. No free air or free fluid. No adenopathy. Sections through the pelvis demonstrate a WANG catheter in the bladder. Status post hysterectomy. No adnexal mass. Bones are osteopenic. Old compression fractures of T11 and L5 noted. Multilevel thoracolumbar spondylosis. Status post left total hip orthoplasty. CT/Abdomen/Pelvis W IV Cont ONLY IMPRESSION: Acute infectious/inflammatory colitis involving the descending colon. Sigmoid diverticulosis. No acute diverticulitis. Other chronic findings as above. Electronically Signed: Isaiah Salas MD at 1:50 EDT ,
[2021-10-07 00:15] LABS: ALB/GLOB Ratio 0.7 RATIO (0.9-2.4); AST(SGOT) 16 U/L (15-37); Alanine Aminotransfer ALT/SGPT 15 U/L (13-56); Alkaline Phosphatase 122 U/L (45-117); Amylase 227 U/L (25-115); Anion Gap 6 (5-15); BUN 16 mg/dL (7-18); BUN/Creat Ratio 21.1 RATIO (10-20); Chloride 100 mmol/L (98-107); Creatinine, Serum 0.76 mg/dL (0.55-1.02); EST Glomerular Filtration Rate 80 mL/min (>60); Est Glom Filt Rate - Afr Amer 97 mL/min (>60); Estimated Creatinine Clearance 38.14 ml/min; Globulin 4.1 g/dL (2.2-4.2); Glucose 113 mg/dL (74-106); Lipase 177 U/L (73-393); Potassium 4.2 mmol/L (3.5-5.1); Protein, Total 7.1 g/dL (6.4-8.2); Sodium Level 131 mmol/L (136-145); Troponin-I HS 6 pg/mL (3.0-54.0)
[2021-10-07 00:47] LABS: Bacteria 0 SEEN /hpf (None Seen)
[2021-10-07 00:47] LABS: Lactic Acid 0.4 mmol/L (0.4-1.9)
[2021-10-07] MEDS: fentaNYL 100 MCG/2 ML Ampul 25 MCG IV ×5 (00:47→11:54)
[2021-10-07 00:48] LABS: Color, Urine Yellow (Yellow); Glucose, Dipstick Normal (Normal); Ketone-Dipstick 5 mg/dl (Negative); Leukocyte Esterase-Dipstick 25 /ul (Negative); Nitrite-Dipstick Negative (Negative); Occult Blood-Urine 10 /ul (Negative); Protein-Dipstick 30 mg/dl (Negative); Urine Clarity Clear (Clear); Urine Urobilinogen 4 mg/dl (Normal); Urine pH 6.5 (5.0 - 8.0)
[2021-10-07 00:51] LABS: Urine Bilirubin Dipstick 1 mg/dL (Negative)
[2021-10-07 00:54] LABS: Hyaline Cast 5-10 SEEN /lpf (0-5); Mucous, Urine 1+ /hpf (<or=2+); Red Blood Cells-Urine 0-5 SEEN /hpf (0-5); Squamous Epithelial Cells - UA 0-5 SEEN /hpf (5-10); White Blood Cells 0-5 SEEN /hpf (0-5)
--- NOTE | 2021-10-07 02:49 | PCM.HP.STD ---
HPI - General General Date of Admission: 10/07/21 Date of Service: 10/07/21 Chief Complaint: Abdominal pain, most recent BM 1 week prior. HPI Narrative The patient is a 71 y/o F w/ PMHx: Hx CVA, COPD w/ Chronic Hypoxic Respiratory Failure (3L NC), CAD, Chronic Diastolic CHF, Diabetes mellitus type II with neuropathy, Chronic anemia, Seizure disorder, PAOD s/p BL iliac stenting and BL femoral endarterectomies w/ L femoral external composite graft w/ eventual LLE AKA, Hx AAA s/p endovascular stenting, Carotid disease s/p BL CEA, Tobacco use who presents to the [facility] ED on 10/07/21 with history of onset abdominal pain, diffusely over the last day with nausea and emesis with reported history of acute constipation x1 week with limited bowel movements with no recent fever or chills although reports poor intake noted to present to the ED with significant hypotension and bradycardia although improved following resuscitation. Patient reports her abdominal pain is aching, cramping and stabbing in nature intermittently, notes severity is moderate. She reported initially prior to fentanyl administration in the ED pain 8 out of 10 in severity, currently notes it is significantly improved and if people would leave her alone she could sleep, 1-2 out of 10 in severity. In the ED she did have bowel movements and they were initially small kevin and then did have onset of some loose stools following. Work-up in the ED included T97.6, heart rate initially 43 however most recent repeat 88, BP initially 68/30 however following IV fluid resuscitation most recent repeat blood pressure 123/95, respiratory rate 14, 97% on 3 L nasal cannula, CBC with WC 14.1, hemoglobin 10.3, platelets 321 with left shift, CMP with sodium 131, glucose 113, lactic acid 0.4, calcium 8, alk phos 122, lipase 177, amylase 227 otherwise [place] profile not marked appearing, troponin 6, urinalysis with specific remedy 1.010, protein 30, ketone 5, occult blood 10, negative nitrite, leukocyte Estrace 25, no urine bacteria, CT abdomen and pelvis with acute infectious inflammatory colitis involving the descending colon, sigmoid diverticulosis with no acute diverticulitis, EKG with sinus bradycardia with first-degree AV block with no acute evidence of ischemia. In the ED patient ministered Zofran, fentanyl 25 mcg IV x3 doses, normal saline 1 L bolus. [facility] Medical History (Updated 10/07/21 @ 02:[address] Barry Rodriguez MD) Abdominal pain Acute kidney injury Anemia Appetite loss Atherosclerosis of [place] artery of left lower extremity Cerebrovascular disease Chronic diastolic (congestive) heart failure Chronic hypoxemic respiratory failure Chronic ulcer of left foot with fat layer exposed Closed left hip fracture COPD (chronic obstructive pulmonary disease) COPD (chronic obstructive pulmonary disease) Debility Diabetes Diabetic polyneuropathy Elevated troponin Essential (primary) hypertension Foot ulcer, left Fracture of fifth toe, left, closed GERD (gastroesophageal reflux disease) Hammer toe of left foot History of CVA (cerebrovascular accident) History of non-ST elevation myocardial infarction (NSTEMI) (05/29/19) Hyperlipidemia Hyponatremia Insomnia Left humeral fracture Neuropathic pain Nicotine dependence Osteoporosis Other specified peripheral vascular diseases Peripheral arterial occlusive disease Seizure disorder Seizure disorder Shortness of breath Thrombocytopenia Tobacco user Type 2 diabetes mellitus with diabetic polyneuropathy Vertebral compression fracture Home Medications albuterol sulfate 90 mcg/actuation aerosol inhaler 2 puff inhalation Q6H PRN PRN Sob &/Or Wheezing 04/05/17 [History Last Taken Unknown] gabapentin 600 mg tablet 800 mg PO TIDCM PAIN 04/05/17 [History Last Taken 01/22/20] ipratropium 0.5 mg-albuterol 3 mg (2.5 mg base)/3 mL nebulization soln 3 ml inhalation Q6HWA.RT WHEEZING 04/05/17 [History Last Taken 01/29/20] budesonide 0.5 mg/2 mL suspension for nebulization 0.5 mg inhalation BID COPD 08/21/17 [History Last Taken 01/29/20] metoprolol tartrate 50 mg tablet 50 mg PO TID HEART/BP 10/18/17 [History Last Taken 01/29/20 08:30] amlodipine 2.5 mg tablet 2.5 mg PO DAILY bp 05/29/19 [History Last Taken 01/22/20] albuterol sulfate 2.5 mg/3 mL (0.083 %) solution for nebulization 2.5 mg (3 mL) inhalation Q2H PRN PRN DYSPNEA 06/01/19 [Rx Last Taken Unknown] acetaminophen 500 mg tablet 1,000 mg PO Q6H PRN PRN Pain Score 1-3/10 06/16/19 [Rx Last Taken Unknown] aspirin 81 mg chewable tablet 81 mg PO BID heart ##20 06/16/19 [Rx Last Taken 01/22/20] ondansetron 4 mg disintegrating tablet 4 mg PO Q8H PRN PRN NAUSEA #21 tabs 06/16/19 [Rx Last Taken Unknown] losartan 100 mg tablet 100 mg PO DAILY bp 06/23/19 [History Last Taken 01/22/20] atorvastatin 20 mg tablet 20 mg PO QHS cholesterol 01/29/20 [History Last Taken 01/22/20] clopidogrel 75 mg tablet 75 mg PO DAILY antiplatelet 01/29/20 [History Last Taken 01/22/20] mirtazapine 30 mg tablet 30 mg PO QHS SLEEP 01/29/20 [History Last Taken 01/22/20] pantoprazole 40 mg tablet,delayed release 40 mg PO DAILY GERD 01/29/20 [History Last Taken 01/22/20] promethazine 25 mg tablet 25 mg PO Q6H PRN PRN Nausea 01/29/20 [History Last Taken Unknown] Allergy/AdvReac Type Severity Reaction Status Date / Time pregabalin [From Lyrica] Allergy Rash Verified 12/01/20 15:28 duloxetine [From Cymbalta] AdvReac Vomiting Verified 12/01/20 15:28 sertraline HCl [From Zoloft] AdvReac MAKES ME Verified 12/01/20 15:28 CRAZY Family History Mother CVA (cerebral vascular accident) other (Notes she never knew her father nor any of her paternal family history.) Surgical History abdominal aorta endovascular stent graft bilateral femoral endarterectomy bilateral iliac stenting History of above knee amputation (08/28/17) History of appendectomy History of bilateral carotid endarterectomy History of cholecystectomy (2019) History of hemiarthroplasty of left hip (05/29/19) History of hysterectomy Social History (Updated 10/07/21 @ 03:[address] Noemí Graham MD) household members: none Smoking Status: Current some day smoker tobacco type: cigarettes Smokeless tobacco user: other alcohol intake: never substance use type: does not use caffeine: Yes Type: coffee Number of servings: 1 ROS ROS Narrative Admission Review of Systems: CONSTITUTIONAL: No weight loss, fever, chills, + weakness or fatigue. HEENT: Eyes: No visual loss, blurred vision, double vision or yellow sclerae. Ears, Nose, Throat: No hearing loss, sneezing, congestion, runny nose or sore throat. SKIN: No rash or itching, lesions, wounds. CARDIOVASCULAR: No chest pain, chest pressure or chest discomfort, palpitations, edema, orthopnea, syncopal events. RESPIRATORY: + Chronic shortness of breath, occasional cough, no recent marked sputum, No wheezing, hemoptysis. GASTROINTESTINAL: + anorexia, nausea, vomiting, abdominal pain, constipation, noted loose stools eventually in the ED, No melena, BRBPR. GENITOURINARY: No dysuria, frequency, urgency or retention. NEUROLOGICAL: No headache, dizziness, syncope, paralysis, ataxia, numbness or tingling in the extremities, focal weakness, change in bowel or bladder control, seizure. MUSCULOSKELETAL: + muscle, back pain, joint pain or stiffness. HEMATOLOGIC: + anemia, bleeding or bruising. LYMPHATICS: No enlarged nodes. No history of splenectomy. PSYCHIATRIC: + history of depression or anxiety. ENDOCRINOLOGIC: No reports of sweating, cold or heat intolerance. No polyuria or polydipsia. ALLERGIES: + history of rhinitis. Vital Signs Vital Signs Vital Signs: 10/06/21 23:04 10/06/21 23:20 10/06/21 23:59 Temperature 97.6 F L Temperature Source Oral Pulse Rate 43 L 43 L 44 L Respiratory Rate 14 18 14 Blood Pressure 68/30 L 56/39 L 71/38 L Blood Pressure Mean 42 44 49 Pulse Ox 100 100 97 Oxygen Delivery Method Room Air Room Air Nasal Cannula Oxygen Flow Rate (L/min) 3 10/07/21 00:22 10/07/21 02:12 Temperature Temperature Source Pulse Rate 77 88 Respiratory Rate 20 H 22 H Blood Pressure 119/52 L 123/95 H Blood Pressure Mean 74 104 Pulse Ox 78 97 Oxygen Delivery Method Nasal Cannula Room Air Oxygen Flow Rate (L/min) 3 Weight Weight: 134 lb 4.184 oz Body Mass Index (BMI) 26.2 Physical Exam Narrative Physical Examination: General: Awake, alert, oriented x 3 and cooperative, laying in the ED bed, fatigued, notes pain is significantly improved, reports wanting to sleep. Skin: Normal color, normal turgor, no icterus, no cyanosis except occasional staged ecchymoses to the extremities. HEENT: AT/NC, EOMI, PERRLA, moderately dry MM, no carotid bruits or JVD noted. Lungs: Notably diffusely diminished, greater bases, moderate effort, no evidence of any distress, maintained currently on chronic supplementation oxygen, no rales, ronchi or wheezing. Heart: Regular rate and rhythm; no gallop, rub audible, +SM. Abdomen: Soft, generalized discomfort with palpation, no rebound or guarding, mildly distended, decreased bowel sounds diffusely, no obvious HSM but discomfort makes evaluation difficult. Extremities: No cyanosis, clubbing, or edema, status post prior left AKA with stump well-healed appearing. Neurological: Patient awake, alert, oriented as noted, cognitive function appears baseline intact; pupils equally reactive to light and accommodation, cranial nerves grossly normal, moving all 4 extremities, no focal deficits, strength moderately to severely globally decreased secondary to acute complaints and pain. Psychiatric: Affect appears flat, fatigued, no acute evidence of depressive or anxiety feelings. Results Lab / Micro Data Result Diagrams: 10/06/21 23:45 10/06/21 23:45 Labs: Laboratory Results - last 24 hr 10/06/21 23:45: WBC 14.1 H, RBC 3.82 L, Hgb 10.3 L, Hct 34.0 L, MCV 89.0, MCH 27.0, MCHC 30.3 L, RDW Std Deviation 45.0 H, RDW Coeff of [place] 13.7, Plt Count 321, MPV 9.2, Immature Gran % (Auto) 0.600, Neut % (Auto) 76.8 H, Lymph % (Auto) 15.5 L, [place] % (Auto) 5.5, Eos % (Auto) 1.3, Baso % (Auto) 0.3, Absolute Neuts (auto) 10.8 H, Absolute Lymphs (auto) 2.18, Nucleated RBC % 0 10/06/21 23:45: Sodium 131 L, Potassium 4.2, Chloride 100, Carbon Dioxide 25.0, Anion Gap 6, BUN 16, Creatinine 0.76, Estim Creat Clear Calc 38.14, Est GFR (MDRD) Af Amer 97, Est GFR (MDRD) Non-Af 80, BUN/Creatinine Ratio 21.1 H, Glucose 113 H, Calcium 8.0 L, Total Bilirubin 0.50, AST 16, ALT 15, Alkaline Phosphatase 122 H, Troponin I High Sens 6, Total Protein 7.1, Albumin 3.0 L, Globulin 4.1, Albumin/Globulin Ratio 0.7 L, Amylase 227 H, Lipase 177 10/06/21 23:50: Lactic Acid 0.4 10/07/21 00:40: Urine Color Yellow, Urine Clarity Clear, Urine pH 6.5, Ur Specific [place] 1.010, Urine Protein 30 H, Urine Glucose (UA) Normal, Urine Ketones 5 H, Urine Occult Blood 10 H, Urine Nitrite Negative, Urine Bilirubin 1 H, Urine Urobilinogen 4 H, Ur Leukocyte Esterase 25 H, Urine RBC 0-5 SEEN, Urine WBC 0-5 SEEN, Ur Squamous Epith Cells 0-5 SEEN, Urine Bacteria 0 SEEN, Hyaline Casts 5-10 SEEN, Urine Mucus 1+ Rhythm Strip Rhythm Strip: Sinus bradycardia Rate: 46 Ectopy: None Radiology Impression Abdomen/Pelvis CT 10/07/21 00:00 IMPRESSION: Acute infectious/inflammatory colitis involving the descending colon. Sigmoid diverticulosis. No acute diverticulitis. Other chronic findings as above. Electronically Signed: Isaiah Salas MD at 1:50 EDT , Assessment & Plan Assessment/Plan (1) Colitis: PLAN: Plan The patient is a 71 y/o F w/ PMHx: Hx CVA, COPD w/ Chronic Hypoxic Respiratory Failure (3L NC), CAD, Chronic Diastolic CHF, Diabetes mellitus type II with neuropathy, Chronic anemia, Seizure disorder, PAOD s/p BL iliac stenting and BL femoral endarterectomies w/ L femoral external composite graft w/ eventual LLE AKA, Hx AAA s/p endovascular stenting, Carotid disease s/p BL CEA, Tobacco use who presents to the [facility] ED on 10/07/21 with history of onset abdominal pain, diffusely over the last day with nausea and emesis with reported history of acute constipation x1 week with limited bowel movements with no recent fever or chills although reports poor intake noted to present to the ED with significant hypotension and bradycardia although improved following resuscitation. #1. Abdominal pain, distention with associated nausea, emesis with concern for acute infectious inflammatory colitis versus ischemic versus inflammatory involving the descending colon w/ initially hypotension, resolved with IVFs: We will admit to medical surgical floor, will continue judicious fluids given underlying CHF history, reported constipation over the last week however given CT findings if any onset of loose stools will obtain C. difficile as well as enteric pathogen's to be cautious, will maintain on IV Zosyn at this time, maintain n.p.o. status given pain as well as nausea and emesis history, as needed antiemetic, as needed pain regimen as well. Patient does have underlying history of prior bowel obstructions however currently CT is not consistent with this but we will continue to closely monitor. LA normal, mildly elevated amylase, normal lipase thus ischemia less suspected. Given abnormal presentation history with CT findings as noted we will request gastroenterology evaluation as well. Procalcitonin requested. Maintain on IV PPI. #2. Nonobstructive CAD, PAOD: s/p BL iliac stenting and BL femoral endarterectomies w/ L femoral external composite graft w/ eventual LLE AKA, given no obvious evidence of bowel obstruction we will continue patient aspirin, Plavix, statin therapy, holding hypertensive regimen given acute presentation with hypotension, add back once appropriate. #3. Carotid disease: s/p BL CEA, will continue aspirin, Plavix, statin, temporarily holding hypertensive regimen as noted, add back once appropriate. #4. History AAA: Status post endovascular repair, continued on aspirin, Plavix, statin, temporarily holding hypertensive regimen as noted, add back once appropriate. #5. Chronic diastolic CHF: We will continue patient aspirin, Plavix, statin therapy, holding hypertensive regimen given acute presentation with hypotension, add back once appropriate, judiciously hydrating given history. Monitor for any overload concerns. #6. Diabetes mellitus type II with neuropathy: Noted history, from review of current list not on regimen, will clarify and in interim obtain hemoglobin A1c, given presentation as noted we will maintain NPO with q 6h accu checks w/ ISS. #7. Chronic COPD with chronic hypoxic respiratory failure (3L NC): Will maintain on home oxygen supplementation, hold home inhalers and in the interim will transition to ATC duonebs, PRN albuterol, HOB, IS parameters. #8 history CVA: We will continue aspirin, Plavix, statin, temporarily holding hypertensive regimen as noted, add back once appropriate, clarifying diabetic status, hemoglobin A1c pending. #9. Hypertension: We will hold patient hypertensive regimen given significant hypotension upon presentation, add back once assure hypotension completely resolved. #10. Hyperlipidemia: We will continue patient on statin therapy. #11. Chronic normocytic anemia: Admission hemoglobin 10.3, baseline prior [id number] primarily 10-11, stable, trend. #12. Tobacco Abuse: Encouraged cessation, inpatient consultation per RT, NR if desired. #13. DVT prophylaxis: SCDs, Lovenox. #14. CODE status: Patient does not have healthcare power of mental retardation nurse nor living will in place and given significant medical history strongly recommended she consider this. Noted that case management/social work could be available to discuss how to set this up. Discussed CODE status at length including difference between FULL code, DNR-CCA and DNR-CC status. Following discussions about the differences in these status, requested DNR-CCA, no intubation status. Advanced Care Planning Face to Face Time: 16 minutes. Charges/Coding Visit Charges Inpatient E&M: 34938 Init Hosp L3 Procedures Hospitalists Procedures: 15125 Advncd Care Plan 30 Min
[2021-10-07 04:25] LABS: Procalcitonin 0.23 ng/mL (0.00-0.09)
[2021-10-07] MEDS: 0.9% Normal Saline 1,000 ML 100 ML IV ×2 (04:39→21:45)
[2021-10-07 05:41] LABS: Bedside Glucose 147 mg/dL (74-106)
[2021-10-07 07:18] LABS: Absolute Lymphocyte Count 0.59 X10^3/uL (0.83-4.51); Absolute Neutrophil Count 12.5 X10^3/uL (2.0-7.7); Basophil# 0.01 X10^3/uL; Basophil% 0.1 % (0-1); Eosinophil# 0.01 X10^3/uL; Eosinophils% 0.1 % (0-5); Hematocrit 33.7 % (37-47); Hemoglobin 10.2 g/dL (12.0-15.0); Lymphocyte # 0.59 X10^3/ul (0.83-4.51); Lymphocyte % 4.1 % (19-41); Mean Corp Hgb Conc 30.3 g/dL (32-36); Mean Corpuscular Hgb 27.1 pg (27.0-32.0); Mean Corpuscular Volume 89.4 fL (81-99); Mean Platelet Vol. 9.6 fl (6.2-12.0); Monocyte# 1.21 X10^3/uL; Monocyte% 8.4 % (0-10); NRBC Flagged by Analyzer 0 % (0-5); Neutrophil # 12.51 X10^3/uL (2.7-7.7); Neutrophil % 86.5 % (47-70); POSITIVE DIFFERENTIAL YES; Platelet Count 214 K/mm3 (150-450); RBC Distribution Width CV 13.9 % (11.6-14.6); RBC Distribution Width SD 45.3 fl (35.1-43.9); Red Blood Count 3.77 M/mm3 (4.2-5.4); White Blood Count 14.4 K/mm3 (4.4-11.0)
[2021-10-07 07:23] LABS: Differential Indicated SCAN CRITERIA MET
[2021-10-07] MEDS: Ipratropium/Albuterol Sulfate 3 ML AMPUL.NEB INHALATION ×3 (07:35→19:16)
[2021-10-07 07:52] LABS: ALB/GLOB Ratio 0.7 RATIO (0.9-2.4); AST(SGOT) 19 U/L (15-37); Alanine Aminotransfer ALT/SGPT 15 U/L (13-56); Albumin, Serum 2.9 g/dL (3.2-5.0); Alkaline Phosphatase 112 U/L (45-117); Anion Gap 10 (5-15); BUN 17 mg/dL (7-18); BUN/Creat Ratio 20.6 RATIO (10-20); Calcium,Total 7.6 mg/dL (8.5-10.1); Chloride 102 mmol/L (98-107); Creatinine, Serum 0.83 mg/dL (0.55-1.02); EST Glomerular Filtration Rate 73 mL/min (>60); Est Glom Filt Rate - Afr Amer 88 mL/min (>60); Globulin 4.2 g/dL (2.2-4.2); Glucose 128 mg/dL (74-106); Protein, Total 7.1 g/dL (6.4-8.2); Sodium Level 133 mmol/L (136-145)
[2021-10-07 09:08] LABS: Hemoglobin A1c 5.2 % (3.8-5.6)
[2021-10-07] MEDS: Gabapentin 800 MG Tablet PO ×3 (09:35→16:00)
[2021-10-07] MEDS: Aspirin 81 MG TAB.CHEW PO ×2 (09:49→16:00)
[2021-10-07] MEDS: Clopidogrel Bisulfate 75 MG Tablet PO (09:49)
--- NOTE | 2021-10-07 11:12 | PCM.CONS.GEN ---
Assessment & Plan Assessment/Plan (1) Colitis: PLAN: Her stool studies do not show any signs of infection thus far. Top on the differential diagnosis would be ischemic colitis in the setting of hypotension in a patient that has significant peripheral artery disease, history of aortic aneurysm status post endovascular stenting, severe calcifications on imaging, COPD and still smoking. She is not presenting like ulcerative colitis or Crohn's colitis. I would recommend to continue IV fluids. I will give her as needed Ativan for anxiety as opposed to more pain medicine as that can be more detrimental on her blood pressure. We recommend CT angiography tomorrow to look at her mesenteric vasculature. If that looks okay then I would pursue aggressive bowel regimen with antispasmodics to stop recurrence of ischemic colitis. HPI Consult Data Date of Consult: 10/07/21 HPI Narrative Reason for Consultation: Abnormal imaging and colitis HPI Narrative: MEME JOHNSON, is a 71 F who presents to the ED with hypotension following nausea, vomiting and diarrhea. She says that she admitted to 11 days of constipation which is unusual for her. She has a past medical history including diabetes, anemia, COPD, NM, seizures, thrombocytopenia, peripheral arterial disease with left leg [id number] amputation on Plavix.? Prior abdominal surgeries include appendectomy, hysterectomy, cholecystectomy.? She has had prior small bowel obstructions but no surgery for this.? Stated today she has had abdominal pain all day with nausea vomiting.? Describes the pain is diffuse.? She denies any dysuria.? She had constipation for a week with limited bowel movements.? No melena.? No diarrhea.? She denies any fever or dysuria.? She presents hypotensive.? No history of aneurysm. CT scan abdomen pelvis does show colitis involving the splenic flexure down through the descending colon into the sigmoid colon. Also to note her blood pressure has been hypotensive into the 90s systolic with a normal heart rate. [facility] Medical History (Updated 10/07/21 @ 02:[address] Barry Rodriguez MD) Abdominal pain Acute kidney injury Anemia Appetite loss Atherosclerosis of [place] artery of left lower extremity Cerebrovascular disease Chronic diastolic (congestive) heart failure Chronic hypoxemic respiratory failure Chronic ulcer of left foot with fat layer exposed Closed left hip fracture COPD (chronic obstructive pulmonary disease) COPD (chronic obstructive pulmonary disease) Debility Diabetes Diabetic polyneuropathy Elevated troponin Essential (primary) hypertension Foot ulcer, left Fracture of fifth toe, left, closed GERD (gastroesophageal reflux disease) Hammer toe of left foot History of CVA (cerebrovascular accident) History of non-ST elevation myocardial infarction (NSTEMI) (05/29/19) Hyperlipidemia Hyponatremia Insomnia Left humeral fracture Neuropathic pain Nicotine dependence Osteoporosis Other specified peripheral vascular diseases Peripheral arterial occlusive disease Seizure disorder Seizure disorder Shortness of breath Thrombocytopenia Tobacco user Type 2 diabetes mellitus with diabetic polyneuropathy Vertebral compression fracture Home Medications albuterol sulfate 90 mcg/actuation aerosol inhaler 2 puff inhalation Q6H PRN PRN Sob &/Or Wheezing 04/05/17 [History Last Taken Unknown] gabapentin 600 mg tablet 800 mg PO TIDCM PAIN 04/05/17 [History Last Taken 01/22/20] ipratropium 0.5 mg-albuterol 3 mg (2.5 mg base)/3 mL nebulization soln 3 ml inhalation Q6HWA.RT WHEEZING 04/05/17 [History Last Taken 01/29/20] budesonide 0.5 mg/2 mL suspension for nebulization 0.5 mg inhalation BID COPD 08/21/17 [History Last Taken 01/29/20] metoprolol tartrate 50 mg tablet 50 mg PO TID HEART/BP 10/18/17 [History Last Taken 01/29/20 08:30] amlodipine 2.5 mg tablet 2.5 mg PO DAILY bp 05/29/19 [History Last Taken 01/22/20] albuterol sulfate 2.5 mg/3 mL (0.083 %) solution for nebulization 2.5 mg (3 mL) inhalation Q2H PRN PRN DYSPNEA 06/01/19 [Rx Last Taken Unknown] acetaminophen 500 mg tablet 1,000 mg PO Q6H PRN PRN Pain Score 1-3/10 06/16/19 [Rx Last Taken Unknown] aspirin 81 mg chewable tablet 81 mg PO BID heart ##20 06/16/19 [Rx Last Taken 01/22/20] ondansetron 4 mg disintegrating tablet 4 mg PO Q8H PRN PRN NAUSEA #21 tabs 06/16/19 [Rx Last Taken Unknown] losartan 100 mg tablet 100 mg PO DAILY bp 06/23/19 [History Last Taken 01/22/20] atorvastatin 20 mg tablet 20 mg PO QHS cholesterol 01/29/20 [History Last Taken 01/22/20] clopidogrel 75 mg tablet 75 mg PO DAILY antiplatelet 01/29/20 [History Last Taken 01/22/20] mirtazapine 30 mg tablet 30 mg PO QHS SLEEP 01/29/20 [History Last Taken 01/22/20] pantoprazole 40 mg tablet,delayed release 40 mg PO DAILY GERD 01/29/20 [History Last Taken 01/22/20] promethazine 25 mg tablet 25 mg PO Q6H PRN PRN Nausea 01/29/20 [History Last Taken Unknown] Allergy/AdvReac Type Severity Reaction Status Date / Time pregabalin [From Lyrica] Allergy Rash Verified 12/01/20 15:28 duloxetine [From Cymbalta] AdvReac Vomiting Verified 12/01/20 15:28 sertraline HCl [From Zoloft] AdvReac MAKES ME Verified 12/01/20 15:28 CRAZY Family History Mother CVA (cerebral vascular accident) Family History other Surgical History abdominal aorta endovascular stent graft bilateral femoral endarterectomy bilateral iliac stenting History of above knee amputation (08/28/17) History of appendectomy History of bilateral carotid endarterectomy History of cholecystectomy (2019) History of hemiarthroplasty of left hip (05/29/19) History of hysterectomy Social History (Updated 10/07/21 @ 03:[address] Noemí Graham MD) household members: none Smoking Status: Current some day smoker tobacco type: cigarettes Smokeless tobacco user: other alcohol intake: never substance use type: does not use caffeine: Yes Type: coffee Number of servings: 1 ROS ROS Narrative Admission Review of Systems: CONSTITUTIONAL: No weight loss, fever, chills, + weakness or fatigue. HEENT: Eyes: No visual loss, blurred vision, double vision or yellow sclerae. Ears, Nose, Throat: No hearing loss, sneezing, congestion, runny nose or sore throat. SKIN: No rash or itching, lesions, wounds. CARDIOVASCULAR: No chest pain, chest pressure or chest discomfort, palpitations, edema, orthopnea, syncopal events. RESPIRATORY: + Chronic shortness of breath, occasional cough, no recent marked sputum, No wheezing, hemoptysis. GASTROINTESTINAL: + anorexia, nausea, vomiting, abdominal pain, constipation, noted loose stools eventually in the ED, No melena, BRBPR. GENITOURINARY: No dysuria, frequency, urgency or retention. NEUROLOGICAL: No headache, dizziness, syncope, paralysis, ataxia, numbness or tingling in the extremities, focal weakness, change in bowel or bladder control, seizure. MUSCULOSKELETAL: + muscle, back pain, joint pain or stiffness. HEMATOLOGIC: + anemia, bleeding or bruising. LYMPHATICS: No enlarged nodes. No history of splenectomy. PSYCHIATRIC: + history of depression or anxiety. ENDOCRINOLOGIC: No reports of sweating, cold or heat intolerance. No polyuria or polydipsia. ALLERGIES: + history of rhinitis. Physical Exam Narrative Physical Examination: General: Awake, alert, oriented x 3 and cooperative, laying in the ED bed, fatigued, notes pain is significantly improved, reports wanting to sleep. Skin: Normal color, normal turgor, no icterus, no cyanosis except occasional staged ecchymoses to the extremities. HEENT: AT/NC, EOMI, PERRLA, moderately dry MM, no carotid bruits or JVD noted. Lungs: Notably diffusely diminished, greater bases, moderate effort, no evidence of any distress, maintained currently on chronic supplementation oxygen, no rales, ronchi or wheezing. Heart: Regular rate and rhythm; no gallop, rub audible, +SM. Abdomen: Soft, generalized discomfort with palpation, no rebound or guarding, mildly distended, decreased bowel sounds diffusely, no obvious HSM but discomfort makes evaluation difficult. Extremities: No cyanosis, clubbing, or edema, status post prior left AKA with stump well-healed appearing. Neurological: Patient awake, alert, oriented as noted, cognitive function appears baseline intact; pupils equally reactive to light and accommodation, cranial nerves grossly normal, moving all 4 extremities, no focal deficits, strength moderately to severely globally decreased secondary to acute complaints and pain. Psychiatric: Affect appears flat, fatigued, no acute evidence of depressive or anxiety feelings. Lab / Micro Data Result Diagrams: 10/07/21 05:57 10/07/21 05:57 Labs: Laboratory Results - last 24 hr 10/06/21 23:45: WBC 14.1 H, RBC 3.82 L, Hgb 10.3 L, Hct 34.0 L, MCV 89.0, MCH 27.0, MCHC 30.3 L, RDW Std Deviation 45.0 H, RDW Coeff of Reina 13.7, Plt Count 321, MPV 9.2, Immature Gran % (Auto) 0.600, Neut % (Auto) 76.8 H, Lymph % (Auto) 15.5 L, [place] % (Auto) 5.5, Eos % (Auto) 1.3, Baso % (Auto) 0.3, Absolute Neuts (auto) 10.8 H, Absolute Lymphs (auto) 2.18, Nucleated RBC % 0 10/06/21 23:45: Sodium 131 L, Potassium 4.2, Chloride 100, Carbon Dioxide 25.0, Anion Gap 6, BUN 16, Creatinine 0.76, Estim Creat Clear Calc 38.14, Est GFR (MDRD) Af Amer 97, Est GFR (MDRD) Non-Af 80, BUN/Creatinine Ratio 21.1 H, Glucose 113 H, Calcium 8.0 L, Total Bilirubin 0.50, AST 16, ALT 15, Alkaline Phosphatase 122 H, Troponin I High Sens 6, Total Protein 7.1, Albumin 3.0 L, Globulin 4.1, Albumin/Globulin Ratio 0.7 L, Amylase 227 H, Lipase 177 10/06/21 23:50: Lactic Acid 0.4 10/07/21 00:40: Urine Color Yellow, Urine Clarity Clear, Urine pH 6.5, Ur Specific [place] 1.010, Urine Protein 30 H, Urine Glucose (UA) Normal, Urine Ketones 5 H, Urine Occult Blood 10 H, Urine Nitrite Negative, Urine Bilirubin 1 H, Urine Urobilinogen 4 H, Ur Leukocyte Esterase 25 H, Urine RBC 0-5 SEEN, Urine WBC 0-5 SEEN, Ur Squamous Epith Cells 0-5 SEEN, Urine Bacteria 0 SEEN, Hyaline Casts 5-10 SEEN, Urine Mucus 1+ 10/07/21 03:30: Procalcitonin 0.23 H 10/07/21 05:17: POC Glucose 147 H 10/07/21 05:57: WBC 14.4 H, RBC 3.77 L, Hgb 10.2 L, Hct 33.7 L, MCV 89.4, MCH 27.1, MCHC 30.3 L, RDW Std Deviation 45.3 H, RDW Coeff of Reina 13.9, Plt Count 214, MPV 9.6, Immature Gran % (Auto) 0.800, Neut % (Auto) 86.5 H, Lymph % (Auto) 4.1 L, [place] % (Auto) 8.4, Eos % (Auto) 0.1, Baso % (Auto) 0.1, Absolute Neuts (auto) 12.5 H, Absolute Lymphs (auto) 0.59 L, Nucleated RBC % 0 10/07/21 05:57: Sodium 133 L, Potassium 4.0, Chloride 102, Carbon Dioxide 21.0, Anion Gap 10, BUN 17, Creatinine 0.83, Estim Creat Clear Calc 61.10, Est GFR (MDRD) Af Amer 88, Est GFR (MDRD) Non-Af 73, BUN/Creatinine Ratio 20.6 H, Glucose 128 H, Calcium 7.6 L, Total Bilirubin 0.50, AST 19, ALT 15, Alkaline Phosphatase 112, Total Protein 7.1, Albumin 2.9 L, Globulin 4.2, Albumin/Globulin Ratio 0.7 L 10/07/21 05:57: Hemoglobin A1c 5.2 Micro: Microbiology 10/07/21 05:11 Stool Enteric Bacteriology - Final 10/07/21 05:11 Stool C. difficile DNA Amplification - Final Rhythm Strip Rhythm Strip: Sinus bradycardia Rate: 46 Ectopy: None Radiology Impression Abdomen/Pelvis CT 10/07/21 00:00 IMPRESSION: Acute infectious/inflammatory colitis involving the descending colon. Sigmoid diverticulosis. No acute diverticulitis. Other chronic findings as above. Electronically Signed: Isaiah Salas MD at 1:50 EDT , Charges/Coding Visit Charges Inpatient E&M: 24098 Init Hosp L2
[2021-10-07] MEDS: Ondansetron 4 MG/2 ML Vial IV (12:07)
[2021-10-07 12:31] LABS: Bedside Glucose 90 mg/dL (74-106)
[2021-10-07] MEDS: LORazepam 1 MG Tablet PO ×2 (13:11→21:51)
--- NOTE | 2021-10-07 13:26 | PN.HOSP_ITS ---
Subjective Subjective Patient reports ongoing constipation and abdominal pain. Predominantly her pain is left lower quadrant however she has some right-sided tenderness as well. She is had some nausea but no vomiting. Asking for an enema. Objective Data Objective Data Vital Signs: Vital Signs Temp Pulse Resp BP Pulse Ox O2 Del Method O2 Flow Rate 97.5 F L 88 16 91/72 96 Room Air 3 10/07/21 10:24 10/07/21 11:06 10/07/21 10:24 10/07/21 10:24 10/07/21 10:24 10/07/21 10:24 10/07/21 08:29 Oxygen Flow Rate (L/min) 3 Oxygen Delivery Method Room Air Weight: 60.5 kg Body Mass Index (BMI) 28.8 Intake & Output: Intake and Output for Last 24 Hours 10/05/21 10/06/21 10/07/21 23:59 23:59 23:59 Intake Total 1630 / 1630 Output Total 850 / 850 Balance 780 / 780 Lab / Micro Data Result Diagrams: 10/07/21 05:57 10/07/21 05:57 Labs: Laboratory Results - last 24 hr 10/06/21 23:45: WBC 14.1 H, RBC 3.82 L, Hgb 10.3 L, Hct 34.0 L, MCV 89.0, MCH 27.0, MCHC 30.3 L, RDW Std Deviation 45.0 H, RDW Coeff of Reina 13.7, Plt Count 321, MPV 9.2, Immature Gran % (Auto) 0.600, Neut % (Auto) 76.8 H, Lymph % (Auto) 15.5 L, [place] % (Auto) 5.5, Eos % (Auto) 1.3, Baso % (Auto) 0.3, Absolute Neuts (auto) 10.8 H, Absolute Lymphs (auto) 2.18, Nucleated RBC % 0 10/06/21 23:45: Sodium 131 L, Potassium 4.2, Chloride 100, Carbon Dioxide 25.0, Anion Gap 6, BUN 16, Creatinine 0.76, Estim Creat Clear Calc 38.14, Est GFR (MDRD) Af Amer 97, Est GFR (MDRD) Non-Af 80, BUN/Creatinine Ratio 21.1 H, Glucose 113 H, Calcium 8.0 L, Total Bilirubin 0.50, AST 16, ALT 15, Alkaline Phosphatase 122 H, Troponin I High Sens 6, Total Protein 7.1, Albumin 3.0 L, Rupal bulin 4.1, Albumin/Globulin Ratio 0.7 L, Amylase 227 H, Lipase 177 10/06/21 23:50: Lactic Acid 0.4 10/07/21 00:40: Urine Color Yellow, Urine Clarity Clear, Urine pH 6.5, Ur Specific [place] 1.010, Urine Protein 30 H, Urine Glucose (UA) Normal, Urine Ketones 5 H, Urine Occult Blood 10 H, Urine Nitrite Negative, Urine Bilirubin 1 H, Urine Urobilinogen 4 H, Ur Leukocyte Esterase 25 H, Urine RBC 0-5 SEEN, Urine WBC 0-5 SEEN, Ur Squamous Epith Cells 0-5 SEEN, Urine Bacteria 0 SEEN, Hyaline Casts 5-10 SEEN, Urine Mucus 1+ 10/07/21 03:30: Procalcitonin 0.23 H 10/07/21 05:17: POC Glucose 147 H 10/07/21 05:57: WBC 14.4 H, RBC 3.77 L, Hgb 10.2 L, Hct 33.7 L, MCV 89.4, MCH 27.1, MCHC 30.3 L, RDW Std Deviation 45.3 H, RDW Coeff of Reina 13.9, Plt Count 214, MPV 9.6, Immature Gran % (Auto) 0.800, Neut % (Auto) 86.5 H, Lymph % (Auto) 4.1 L, [place] % (Auto) 8.4, Eos % (Auto) 0.1, Baso % (Auto) 0.1, Absolute Neuts (auto) 12.5 H, Absolute Lymphs (auto) 0.59 L, Nucleated RBC % 0 10/07/21 05:57: Sodium 133 L, Potassium 4.0, Chloride 102, Carbon Dioxide 21.0, Anion Gap 10, BUN 17, Creatinine 0.83, Estim Creat Clear Calc 61.10, Est GFR (MDRD) Af Amer 88, Est GFR (MDRD) Non-Af 73, BUN/Creatinine Ratio 20.6 H, Glucose 128 H, Calcium 7.6 L, Total Bilirubin 0.50, AST 19, ALT 15, Alkaline Phosphatase 112, Total Protein 7.1, Albumin 2.9 L, Globulin 4.2, Albumin/Globulin Ratio 0.7 L 10/07/21 05:57: Hemoglobin A1c 5.2 10/07/21 12:02: POC Glucose 90 Micro: Microbiology 10/07/21 05:11 Stool Enteric Bacteriology - Final 10/07/21 05:11 Stool C. difficile DNA Amplification - Final Radiography Diagnostic Testing: Radiology Impression Abdomen/Pelvis CT 10/07/21 00:00 IMPRESSION: Acute infectious/inflammatory colitis involving the descending colon. Sigmoid diverticulosis. No acute diverticulitis. Other chronic findings as above. Electronically Signed: Isaiah Salas MD at 1:50 EDT Reading Location ID and State: [facility] / [place] Tel , Service support , Rhythm Strip Rhythm Strip: Sinus bradycardia Rate: 46 Ectopy: None Physical Exam Const alert, oriented x3 and well nourished Constitutional Narrative: Older white female lying in bed appears uncomfortable but nontoxic, appears much older than stated age HEENT head/scalp atraumatic and moist oral mucous membranes HEENT Narrative: Edentulous, Mallampati 2, no thrush Head and Scalp: normocephalic Resp normal respiratory effort, no retractions, no use of accessory muscles and clear to auscultation bilaterally Resp Narrative: Diffusely diminished but clear Auscultation: Negative for crackles, rales, rhonchi or wheezes Cardio regular rate, regular rhythm, S1 normal heart sound, S2 normal heart sound, no murmurs, no rub, no gallops, no clicks and no JVD GI soft to palpation and non-distended GI Narrative: Diffuse abdominal tenderness worse in the left lower quadrant, bowel sounds are somewhat hypoactive Extremity no clubbing, cyanosis or edema Extremity Narrative: 1+ pedal pulses Neuro oriented x3, moves all extremities and no focal motor deficits Speech: speech normal Assessment & Plan Assessment/Plan (1) Abdominal pain: (2) Colitis: (3) Nausea & vomiting: (4) Acute hypotension: PLAN: Plan Acute colitis/abdominal pain -C. difficile and enteric panel are negative -Continue Zosyn -Amylase is elevated with a normal lipase -Lactic acid was normal at 0.4 on admission -Highly suspicious for ischemic colitis especially with hypotension and constipation -Per GI recommendation CT angio of the abdomen pelvis tomorrow -As needed pain medication per GI -Continue aggressive IV fluids with 100 cc/h Leukocytosis -Suspect related to the above -We will continue to monitor -No real change in the last 24 hours Acute hypotension -Antihypertensives on hold -Continue aggressive IV hydration -We will give 1 L bolus now Chronic normocytic anemia -Hemoglobin is 10.2 and stable when compared to previous -Continue to monitor Hyponatremia -Suspect hypovolemic hyponatremia -Sodium is improving with IV hydration to 133 which appears to be approximately her baseline when compared to previous laboratory data DM-2 -Blood sugars appear to be well controlled with 128 fasting this morning -Patient is currently n.p.o. -Patient appears to be diet controlled at baseline as she is on no medications -Sliding scale -Accu-Cheks as ordered Hypertension -All antihypertensives on hold at this time secondary to acute hypotension -On amlodipine 2.5 mg/losartan 100 mg/metoprolol 50 mg 3 times daily Hyperlipidemia -Continue home atorvastatin COPD -Continue home inhalers and as needed nebulizers -Supplemental oxygen as needed to keep oxygen saturations greater than 88% -Baseline home O2 is 3 L Peripheral vascular disease -History of bilateral femoral endarterectomies and bilateral common and external iliac stents, left common femoral endarterectomy with external composite graft -Continue aspirin and Plavix History of AAA -Status post endovascular repair -Continue aspirin/Plavix/statin Neuropathy -Continue home gabapentin History of stroke -Continue aspirin and Plavix -No change in baseline neurological status Tobacco abuse -Currently still smoking -Recommend cessation -Nicotine patch as needed DVT prophylaxis -Continue Lovenox -Continue SCDs CODE STATUS -DNR CCA with no intubation
--- NOTE | 2021-10-07 14:30 | CASEMGMT ---
ELIJAH TARANGO assessment: Face to Face with patient for initial transition planning/care coordination assessment. ELIJAH TARANGO introduced self and role at [facility], pt voices understanding and consents to assessment. Pt is lying in bed in no distress on 3L nc. Pt is A/Ox4 and answers all questions appropriately. Care providers, pharmacy,?and demographics verified. ? Presentation: Pt c/o abd pain, last bm 1 week ago Admitting dx: Colitis, hypotension PCP: Pritesh Specialists: none Preferred Pharmacy: [facility] Insurance: [facility] Prescription Benefit:?Yes Living Will/HPOA: Pt does not have LW/HPOA but would like to complete AD info. C.Aller YASMIN aware. LNOK: Mayte Mixon, daughter Living Arrangements: Pt lives with daughter and son-in-law in 1 story apt and states no concerns at home. Pt is independent with ADL's. Pt states her brother did live with her but he recently , YASMIN aware. Transportation: Pt states brother always drove her and states transportation concerns now. SW aware and pt advised to also discuss with her CM thru [facility]. DME/HHC: Pt states has the following DME: BSC, W/C x2(electric and regular), shower chair, raised toilet seat, grab bars, and home oxygen 3L 24/7 thru [facility]. Pt states no need for any further DME. Pt states no hx of HHC but has been to [facility] in past. Pt has CM thru [facility] [place], [place], and has aides thru [employer] 5 days/week and 5 hours/day. YASMIN aware. Pt states also has CM thru insurance. Pt state no concerns with going home at time of discharge. Pt is retired. Pt states does smoke 1/2 pack cigarettes daily but does not drink ETOH. Pt state no further concerns/needs. CM to follow for any further questions/concerns/needs. Advised pt to ask for CM if any further questions/concerns/needs arise, voices understanding. ? Pt Goal: Home Plan: [place] ELIJAH TARANGO
[2021-10-07] MEDS: Enoxaparin 40 MG/0.4 ML Syringe SC (16:38)
--- NOTE | 2021-10-07 17:32 | CASEMGMT ---
Social Work SW gave pt resources for counseling, as her roommate(who was her best friend) just . SW also gave her information on LW/POA as requested, and transportation resources. LAZARA Padron
[2021-10-07] MEDS: oxyCODONE 5 MG Tablet PO ×2 (18:09→22:13)
[2021-10-07] MEDS: 0.9% Saline Lock 10 ML Syringe IV (21:45)
[2021-10-07] MEDS: Atorvastatin Calcium 20 MG Tablet PO (21:51)
[2021-10-07] MEDS: Acetaminophen 325 MG Tablet 650 MG PO (21:51)
[2021-10-07 22:15] LABS: Bedside Glucose 134 mg/dL (74-106)
[2021-10-07 22:15] LABS: Bedside Glucose 97 mg/dL (74-106)
[2021-10-08] VITALS (20 sets, daily range): BP systolic 87–164; BP diastolic 53–136; PULSE 69–151; RESP 12–24; TEMP 36–37.7; O2SAT 93–100
--- NOTE | 2021-10-08 03:55 | EKG12_ITS ---
Test Reason : TACHYCARDIA Blood Pressure : / mmHG Vent. Rate : 148 BPM Atrial Rate : 000 BPM P-R Int : 000 ms QRS Dur : 070 ms QT Int : 292 ms P-R-T Axes : 000 050 089 degrees QTc Int : 458 ms Atrial fibrillation Nonspecific ST and T wave abnormality Abnormal ECG Confirmed by RAJI GARCIA, GINA ([id number]), make up editor LEATHA GONZALEZ ([id number]) on 10/10/2021 8:00:16 AM Referred By: Confirmed By:GINA ALEGRIA MD
--- NOTE | 2021-10-08 03:57 | PCM.HOSP.N ---
Hospitalist Note Patient with increased RR, HR, moist cough, overloaded with hx diastolic CHF. Will stop IVFs, administer lasix 40 mg IV x [address] on BIPAP to assist with overload. Discussed with RT and agree. EKG obtained with noted sinus tachycardia.
--- NOTE | 2021-10-08 04:01 | RAD_ITS ---
STUDY: X-RAY CHEST REASON FOR EXAM: Female, 71 years old. Dyspnea TECHNIQUE: AP portable. 4:01 AM. COMPARISON: 01/29/2020. FINDINGS: LUNGS: No consolidation. No pneumothorax. MEDIASTINUM: Aorta is tortuous and atherosclerotic. CARDIAC SILHOUETTE: Not enlarged. BONES AND SOFT TISSUES: No old right rib fractures. Degenerative changes in the dorsal spine. RAD/Chest 1 View (Portable) IMPRESSION: No evidence of active intrathoracic disease. Electronically Signed: Jo Ann Weiss MD at 4:26 EDT ,
[2021-10-08] MEDS: Furosemide 40 MG/4 ML Vial IV (04:04)
[2021-10-08] MEDS: 0.9% Saline Lock 10 ML Syringe IV ×2 (04:08→09:55)
--- NOTE | 2021-10-08 04:20 | NURSING ---
MD updated on pt change in condition pt noted with lungs sound course crackles, wet non productive cough, HR 140-150 consistently. pt with NS at 100 ml/hr. Zosyn infusion completed. RT at bedside. EKG show sinus tach at this time. MD to enter orders. will monitor.
[2021-10-08 04:31] LABS: Bedside Glucose 104 mg/dL (74-106)
[2021-10-08 04:53] LABS: Absolute Lymphocyte Count 0.35 X10^3/uL (0.83-4.51); Absolute Neutrophil Count 4.6 X10^3/uL (2.0-7.7); Basophil# 0.02 X10^3/uL; Basophil% 0.4 % (0-1); Eosinophil# 0.02 X10^3/uL; Eosinophils% 0.4 % (0-5); Hematocrit 29.2 % (37-47); Hemoglobin 8.9 g/dL (12.0-15.0); Lymphocyte # 0.35 X10^3/ul (0.83-4.51); Lymphocyte % 6.7 % (19-41); Mean Corp Hgb Conc 30.5 g/dL (32-36); Mean Corpuscular Hgb 27.4 pg (27.0-32.0); Mean Corpuscular Volume 89.8 fL (81-99); Mean Platelet Vol. 9.5 fl (6.2-12.0); Monocyte# 0.24 X10^3/uL; Monocyte% 4.6 % (0-10); NRBC Flagged by Analyzer 0 % (0-5); Neutrophil # 4.59 X10^3/uL (2.7-7.7); Neutrophil % 87.7 % (47-70); POSITIVE DIFFERENTIAL YES; Platelet Count 149 K/mm3 (150-450); RBC Distribution Width CV 14.2 % (11.6-14.6); RBC Distribution Width SD 46.5 fl (35.1-43.9); Red Blood Count 3.25 M/mm3 (4.2-5.4); White Blood Count 5.2 K/mm3 (4.4-11.0)
[2021-10-08 05:06] LABS: Differential Indicated SCAN CRITERIA MET
[2021-10-08 05:27] LABS: ALB/GLOB Ratio 0.6 RATIO (0.9-2.4); AST(SGOT) 62 U/L (15-37); Alanine Aminotransfer ALT/SGPT 34 U/L (13-56); Albumin, Serum 2.7 g/dL (3.2-5.0); Alkaline Phosphatase 144 U/L (45-117); Anion Gap 5 (5-15); BUN 12 mg/dL (7-18); BUN/Creat Ratio 20.4 RATIO (10-20); Calcium,Total 7.6 mg/dL (8.5-10.1); Chloride 104 mmol/L (98-107); Creatinine, Serum 0.59 mg/dL (0.55-1.02); EST Glomerular Filtration Rate 108 mL/min (>60); Est Glom Filt Rate - Afr Amer 131 mL/min (>60); Estimated Creatinine Clearance 50.71 ml/min; Globulin 4.2 g/dL (2.2-4.2); Glucose 111 mg/dL (74-106); Potassium 4.3 mmol/L (3.5-5.1); Protein, Total 6.9 g/dL (6.4-8.2); Sodium Level 133 mmol/L (136-145)
[2021-10-08 05:32] LABS: Magnesium 1.9 mg/dL (1.6-2.6)
[2021-10-08 05:36] LABS: BNP,B-Type NATRIURETIC PEPTIDE 275.3 pg/mL (0-100)
[2021-10-08 05:42] LABS: Differential Comment SCANNED
[2021-10-08] MEDS: Ipratropium/Albuterol Sulfate 3 ML AMPUL.NEB INHALATION ×3 (07:00→19:44)
[2021-10-08 07:11] LABS: Bedside Glucose 118 mg/dL (74-106)
[2021-10-08 07:30] LABS: Allen Test Positive; Base Excess -1 mmol/L (-2 to +2); Bicarbonate 21.3 mmol/L (22-26); Blood Gas Specimen Type ART; FI02 32; Mode BiLevel; O2 Delivery Device BiPAP; PEEP 8; PO2 178 mmHG (75-100); SITE R Radial; SO2 100 % (95-99); Total Carbon Dioxide 22 mmol/L; Vt 450; pCO2 24.5 mmHg (35-45); pH 7.55 (7.35-7.45)
--- NOTE | 2021-10-08 07:43 | ECHOD_ITS ---
Version 2 Reason For Study: CHF Procedure This was a 2D Doppler, Color Flow transthoracic echocardiogram. The study was technically limited. Contrast injection was performed. Exam performed portable in patient room. Left Ventricle Normal LV size. Sigmoid septum. Left ventricular systolic function is hyperdynamic. The estimated ejection fraction is 75 %. Diastolic function is indeterminate. Late peaking spectral Doppler pattern near the left ventricular outflow track approaching 2 m/s (peak gradient 16 mmHg) appearing compatible with a hyperdynamic state. No regional wall motion abnormalities noted. Right Ventricle Normal RV size. Normal systolic function. Atria The left atrium is mildly enlarged. Normal right atrium. Agitated saline contrast study faintly positive for right to left interatrial shunt potentially compatible with a small PFO versus ASD. Mitral Valve There is no mitral annular calcification. Normal mitral valve. Trivial mitral valve insufficiency. Tricuspid Valve Normal tricuspid valve. Trivial tricuspid valve insufficiency. Right ventricular systolic pressure estimated to be 53 mmHg. Aortic Valve The aortic valve is not well visualized. Pulmonic Valve The pulmonic valve is not well visualized. Great Vessels The aortic root is not well visualized. Pericardium/Pleural No pericardial effusion. Medication Diluted definity 0.5ml given slow IV push to enhance endocardial definition. Performed a rapid injection of agitated mix of 9 cc saline and 1cc air to assess for atrial septal defect. MMode/2D Measurements & Calculations LAV(MOD-sp4): 89.6 ml LA A4 area: 26.2 cm2 RA A4 area: 15.0 cm2 Doppler Measurements & Calculations MV E max constantino: 84.2 cm/sec Lat Peak E' Constantino: 7.9 cm/sec Med Peak E' Constantino: 9.2 cm/sec MV A max constantino: 123.7 cm/sec E/E' lat: 10.7 E/E' med: 9.1 MV E/A: 0.68 Ao V2 max: 251.7 cm/sec PA V2 max: 183.8 cm/sec TR max constantino: 354.9 cm/sec Ao max P.4 mmHg TR max P.4 mmHg ECHO/Echo Complete W/ Contrast Interpretation Summary The study was technically limited. Contrast injection was performed. Left ventricular systolic function is hyperdynamic. The estimated ejection fraction is 75 %. The left atrium is mildly enlarged. Trivial mitral valve insufficiency. Trivial tricuspid valve insufficiency. Right ventricular systolic pressure estimated to be 53 mmHg. Diastolic function is indeterminate. Agitated saline contrast study faintly positive for right to left interatrial s higgins potentially compatible with a small PFO versus ASD. Late peaking spectral Doppler pattern near the left ventricular outflow track a pproaching 2 m/s (peak gradient 16 mmHg) appearing compatible with a hyperdynamic state. Ordering Physician: Stacy Arnold Performed By: Glenny Mercado RCS
--- NOTE | 2021-10-08 07:45 | CT_ITS ---
INDICATION: ischemic colitis. PATIENT HAS ILIAC STENTS AND LEFT ABOVE KNEE AMPUTATION EXAMINATION: CTA abdomen and pelvis - TECHNIQUE: Routine abdominal CT angiogram protocol was performed with IV contrast. MIP images provided. A radiation dose optimization technique was used for this scan. IV Contrast dosage and agent: Radiation dose DLP mGy / cm. COMPARISON: 10/07/2021 FINDINGS: Lung bases: Normal. Liver: Normal. No bile ductal dilatation. Gallbladder: Not visualized Spleen: Normal. Adrenal gland: Normal. Kidneys: Moderate right renal atrophy. Normal left kidney. Pancreas:Normal. Bowel gas pattern: Nonobstructive. Appendix: Appendix not identified. No inflammatory changes along the cecum present. Free air: None. Free fluid: None. Pelvis: Pelvic organs: No mass lesion noted. Bone survey: Status post left hip arthroplasty which produces streak artifact and obscures the pelvis. Adenopathy: No significant pathologic adenopathy detected. Other: None. Vascular: Moderate amount of peripheral calcified plaque within the distal abdominal aorta but no aortic stenosis or abdominal aortic aneurysm. Unusual appearance to the celiac axis with a capacious origin with a prominent branch which courses anterior to the body the pancreas and produces reconstitution of the occluded superior mesenteric artery. Just inferior to the celiac axis is another branch supplying the left gastric artery and splenic artery. The inferior mesenteric arteries patent. There are 2 small accessory right renal arteries supplying the right kidney. The main right renal artery located in between the accessory renal arteries is occluded. Moderate amount calcified plaque within the left renal artery with a focal severe (80%) stenosis proximally. Moderate amount of peripheral calcified plaque within the common iliac arteries, external iliac arteries, and internal iliac arteries. Moderate (60%) stenosis of the proximal right common femoral artery. The proximal right superficial femoral artery is occluded. Focal severe (90%) stenosis of the proximal left external iliac artery. The left common femoral artery is obscured by the streak artifact from the prosthesis. CT/CT ANGIO ABD&PEL W/O&W/DYE IMPRESSION: 1. Moderate amount of peripheral calcified plaque within the abdominal aorta and iliac arteries without aortic stenosis or abdominal aortic aneurysm. 2. 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 3. Occluded main right renal artery with the moderate right renal parenchymal atrophy consistent with chronic occlusion. 2 small accessory right renal arteries supply the right kidney. Severe (80%) stenosis of the proximal left renal artery. 4. Moderate amount calcified plaque throughout the iliac arteries with a focal severe (90%) stenosis of the proximal left external carotid artery. Moderate (60%) stenosis of the proximal right common femoral artery. The proximal right superficial femoral artery is occluded. The left common femoral artery is obscured by streak artifact from the prosthesis. Electronically Signed: Jam Berry MD at 9:16 EDT ,
[2021-10-08] MEDS: Acetaminophen 325 MG Tablet 650 MG PO (08:06)
[2021-10-08] MEDS: Gabapentin 800 MG Tablet PO ×3 (08:06→17:03)
[2021-10-08] MEDS: oxyCODONE 5 MG Tablet PO (08:06)
[2021-10-08] MEDS: Aspirin 81 MG TAB.CHEW PO ×2 (08:09→17:03)
[2021-10-08] MEDS: Clopidogrel Bisulfate 75 MG Tablet PO (09:55)
[2021-10-08] MEDS: Enoxaparin 40 MG/0.4 ML Syringe SC (09:55)
--- NOTE | 2021-10-08 10:07 | NURSING ---
down to radiology at 0800 and returned at 0850
[2021-10-08] MEDS: LORazepam 1 MG Tablet PO ×2 (10:14→18:39)
--- NOTE | 2021-10-08 13:02 | PN.HOSP_ITS ---
Subjective Subjective Patient states she still having intermittent bowel pain however she appears more comfortable today. She states she will feel better if I can poop. Had some respiratory distress overnight likely related to volume overload as patient was on IV fluids for her hypotension which likely precipitated some ischemic gut. Fluids were discontinued and she was given the Lasix and placed on BiPAP. Patient is now off BiPAP and on 4 L nasal cannula with a baseline of 3 L at home. Objective Data Objective Data Vital Signs: Vital Signs Temp Pulse Resp BP Pulse Ox O2 Del Method O2 Flow Rate 97.3 F L 98 18 117/96 H 100 Nasal Cannula 4 10/08/21 11:52 10/08/21 11:52 10/08/21 11:52 10/08/21 11:52 10/08/21 11:52 10/08/21 11:52 10/08/21 11:52 FiO2 32 10/08/21 07:41 Oxygen Flow Rate (L/min) 4 Oxygen Delivery Method Nasal Cannula Weight: 61.4 kg Body Mass Index (BMI) 28.8 Intake & Output: Intake and Output for Last 24 Hours 10/06/21 10/07/21 10/08/21 23:59 23:59 23:59 Intake Total 3450 / 3450 1135 / 1135 Output Total 850 / 850 350 / 350 Balance 2600 / 2600 785 / 785 Lab / Micro Data Result Diagrams: 10/08/21 04:35 10/08/21 04:35 Labs: Laboratory Results - last 24 hr 10/07/21 15:59: POC Glucose 97 10/07/21 21:55: POC Glucose 134 H 10/08/21 03:49: POC Glucose 104 10/08/21 04:35: WBC 5.2, RBC 3.25 L, Hgb 8.9 L, Hct 29.2 L, MCV 89.8, MCH 27.4, MCHC 30.5 L, RDW Std Deviation 46.5 H, RDW Coeff of Reina 14.2, Plt Count 149 L, MPV 9.5, Immature Gran % (Auto) 0.200, Neut % (Auto) 87.7 H, Lymph % (Auto) 6.7 L, [place] % (Auto) 4.6, Eos % (Auto) 0.4, Baso % (Auto) 0.4, Absolute Neuts (auto) 4.6, Absolute Lymphs (auto) 0.35 L, Nucleated RBC % 0, Differential Comment S CANNED 10/08/21 04:35: Sodium 133 L, Potassium 4.3, Chloride 104, Carbon Dioxide 24.0, Anion Gap 5, BUN 12, Creatinine 0.59, Estim Creat Clear Calc 50.71, Est GFR (MDRD) Af Amer 131, Est GFR (MDRD) Non-Af 108, BUN/Creatinine Ratio 20.4 H, Glucose 111 H, Calcium 7.6 L, Total Bilirubin 0.50, AST 62 H, ALT 34, Alkaline Phosphatase 144 H, Total Protein 6.9, Albumin 2.7 L, Globulin 4.2, Albumin/Globulin Ratio 0.6 L 10/08/21 04:35: B-Natriuretic Peptide 275.3 H 10/08/21 04:35: Magnesium 1.9 10/08/21 06:39: POC Glucose 118 H Micro: Microbiology 10/07/21 05:11 Stool Enteric Bacteriology - Final 10/07/21 05:11 Stool C. difficile DNA Amplification - Final ABG Data ABG results: ABG 10/08/21 07:25 Specimen Type ART Sample Site R Radial pH 7.55 H Bicarbonate Actual 21.3 L Total CO2 22 Base Excess -1 O2 Saturation 100 H O2 % 32 ABG pCO2 24.5 L ABG pO2 178 H Oneil Test Positive O2 Delivery Device BiPAP Vent Mode BiLevel Tidal Volume 450 POC PEEP 8 Clinical Comments 450 / +8 32% Radiography Diagnostic Testing: Radiology Impression Chest X-Ray 10/08/21 04:01 IMPRESSION: No evidence of active intrathoracic disease. Electronically Signed: Jo Ann Weiss MD at 4:26 EDT , Abdomen/Pelvis CTA 10/08/21 07:45 IMPRESSION: 1. Moderate amount of peripheral calcified plaque within the abdominal aorta and iliac arteries without aortic stenosis or abdominal aortic aneurysm. 2. 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 3. Occluded main right renal artery with the moderate right renal parenchymal atrophy consistent with chronic occlusion. 2 small accessory right renal arteries supply the right kidney. Severe (80%) stenosis of the proximal left renal artery. 4. Moderate amount calcified plaque throughout the iliac arteries with a focal severe (90%) stenosis of the proximal left external carotid artery. Moderate (60%) stenosis of the proximal right common femoral artery. The proximal right superficial femoral artery is occluded. The left common femoral artery is obscured by streak artifact from the prosthesis. Electronically Signed: Jam Berry MD at 9:16 EDT , Rhythm Strip Rhythm Strip: Sinus bradycardia Rate: 46 Ectopy: None Physical Exam Const alert, oriented x3 and well nourished Constitutional Narrative: Older white female sitting up in bed eating breakfast,, appears much older than stated age, appears comfortable and nontoxic at this time, no dyspnea with conversation HEENT head/scalp atraumatic and moist oral mucous membranes HEENT Narrative: Dentures are in place, Mallampati 2-3, no thrush Resp normal respiratory effort, no retractions and no use of accessory muscles Resp Narrative: Diffusely diminished but clear, few scattered crackles at the bases no tachypnea or respiratory extremis at this time, currently on 4 L Auscultation: crackles; Negative for rales, rhonchi or wheezes Cardio regular rate, regular rhythm, S1 normal heart sound, S2 normal heart sound, no murmurs, no rub, no gallops, no clicks and no JVD GI soft to palpation and non-distended GI Narrative: Mild diffuse tenderness, bowel sounds are hypoactive Extremity no clubbing, cyanosis or edema Extremity Narrative: 1+ pedal pulses Neuro oriented x3, moves all extremities and no focal motor deficits Speech: speech normal Assessment & Plan Assessment/Plan (1) Abdominal pain: (2) Colitis: (3) Nausea & vomiting: (4) Acute hypotension: (5) Acute respiratory failure with hypoxia: PLAN: Plan Acute colitis/abdominal pain -C. difficile and enteric panel are negative -Continue Zosyn -Amylase is elevated with a normal lipase -Lactic acid was normal at 0.4 on admission -Highly suspicious for ischemic colitis especially with hypotension and constipation -CT angio of the abdomen and pelvis was abnormal but shows reconstitution of blood flow with collaterals -Suspect this reconstitution of blood flow may not have been satisfactory in a hypotensive state -GI following-appreciate input Acute hypoxic respiratory failure secondary to flash pulmonary edema -We will check echocardiogram -Patient did require BiPAP secondary to marked tachypnea, tachycardia, hypertension and impending complete respiratory decompensation -Since been weaned off BiPAP -Was given Lasix 40 mg x 1 dose -Currently on 4 L nasal cannula with a baseline requirement of 3 L -Sinew to wean oxygen Leukocytosis -Resolved Acute hypotension -Resolved Chronic normocytic anemia -Hemoglobin is 10.2 and stable when compared to previous -Continue to monitor Hyponatremia -Improving and now seems to be consistent with her baseline DM-2 -Blood sugars appear to be well controlled with 128 fasting this morning -Patient is currently n.p.o. -Patient appears to be diet controlled at baseline as she is on no medications -Sliding scale -Accu-Cheks as ordered Hypertension -Patient is just now having normal blood pressures and will continue to hold home regimen as below -On amlodipine 2.5 mg/losartan 100 mg/metoprolol 50 mg 3 times daily -As needed hypertensives available Hyperlipidemia -Continue home atorvastatin COPD -Continue home inhalers and as needed nebulizers -Supplemental oxygen as needed to keep oxygen saturations greater than 88% -Baseline home O2 is 3 L Peripheral vascular disease -History of bilateral femoral endarterectomies and bilateral common and external iliac stents, left common femoral endarterectomy with external composite graft -CT of the abdomen pelvis with contrast shows moderate peripheral vascular plaque in the abdominal aorta and iliac arteries without aortic stenosis or abdominal aortic aneurysm, occluded proximal SMA with reconstitution via branches or graft from celiac axis, occluded right main renal artery with moderate renal stenosis and parenchymal atrophy consistent with chronic occlusion and 2 small accessory right renal arteries that supply the kidney, severe (80%) stenosis of the proximal left renal artery, moderate amount of calcified plaque throughout the iliac arteries with 90% stenosis of the proximal left external femoral artery and 60% stenosis of the proximal right common femoral artery with occlusion of the right superficial femoral artery -Would recommend outpatient referral to vascular surgery with Dr. Allen if patient is amenable not following as an outpatient anywhere with vascular surgery otherwise -Continue aspirin and Plavix History of AAA -Status post endovascular repair -Continue aspirin/Plavix/statin Neuropathy -Continue home gabapentin History of stroke -Continue aspirin and Plavix -No change in baseline neurological status Tobacco abuse -Currently still smoking -Recommend cessation -Nicotine patch as needed DVT prophylaxis -Continue Lovenox -Continue SCDs CODE STATUS -DNR CCA with no intubation Charges/Coding Visit Charges Inpatient E&M: 65901 Subs Hosp L2
[2021-10-08] MEDS: Polyethylene Glycol 3350 17 GM PACKET PO ×2 (14:16→21:02)
[2021-10-08] MEDS: fentaNYL 100 MCG/2 ML Ampul 25 MCG IV ×2 (15:28→20:53)
[2021-10-08 16:25] LABS: Bedside Glucose 100 mg/dL (74-106)
[2021-10-08 17:25] LABS: Bedside Glucose 95 mg/dL (74-106)
[2021-10-08] MEDS: Atorvastatin Calcium 20 MG Tablet PO (21:11)
[2021-10-08 21:26] LABS: Bedside Glucose 115 mg/dL (74-106)
[2021-10-09] VITALS (11 sets, daily range): BP systolic 115–143; BP diastolic 46–63; PULSE 60–117; RESP 16–20; TEMP 36.3–37.1; O2SAT 97–100
[2021-10-09] MEDS: fentaNYL 100 MCG/2 ML Ampul 25 MCG IV ×3 (01:54→15:41)
[2021-10-09 06:28] LABS: Absolute Lymphocyte Count 0.67 X10^3/uL (0.83-4.51); Absolute Neutrophil Count 2.4 X10^3/uL (2.0-7.7); Basophil# 0.01 X10^3/uL; Basophil% 0.3 % (0-1); Eosinophil# 0.04 X10^3/uL; Eosinophils% 1.1 % (0-5); Hematocrit 27.8 % (37-47); Hemoglobin 8.5 g/dL (12.0-15.0); Lymphocyte # 0.67 X10^3/ul (0.83-4.51); Lymphocyte % 18.5 % (19-41); Mean Corp Hgb Conc 30.6 g/dL (32-36); Mean Corpuscular Hgb 27.3 pg (27.0-32.0); Mean Corpuscular Volume 89.4 fL (81-99); Mean Platelet Vol. 9.9 fl (6.2-12.0); Monocyte# 0.54 X10^3/uL; Monocyte% 14.9 % (0-10); NRBC Flagged by Analyzer 0 % (0-5); Neutrophil # 2.35 X10^3/uL (2.7-7.7); Neutrophil % 64.9 % (47-70); Platelet Count 143 K/mm3 (150-450); RBC Distribution Width CV 14.1 % (11.6-14.6); RBC Distribution Width SD 46.5 fl (35.1-43.9); Red Blood Count 3.11 M/mm3 (4.2-5.4); White Blood Count 3.6 K/mm3 (4.4-11.0)
[2021-10-09 06:41] LABS: Bedside Glucose 104 mg/dL (74-106)
[2021-10-09] MEDS: Ipratropium/Albuterol Sulfate 3 ML AMPUL.NEB INHALATION ×3 (06:47→19:28)
[2021-10-09] MEDS: Ondansetron 4 MG/2 ML Vial IV ×2 (08:55→21:26)
[2021-10-09] MEDS: 0.9% Saline Lock 10 ML Syringe IV ×2 (08:55→15:48)
[2021-10-09] MEDS: Polyethylene Glycol 3350 17 GM PACKET PO (09:42)
[2021-10-09] MEDS: Clopidogrel Bisulfate 75 MG Tablet PO (09:43)
[2021-10-09] MEDS: Gabapentin 800 MG Tablet PO ×3 (09:45→17:06)
[2021-10-09] MEDS: Acetaminophen 325 MG Tablet 650 MG PO ×2 (09:45→21:25)
[2021-10-09] MEDS: oxyCODONE 5 MG Tablet PO ×2 (09:45→21:25)
[2021-10-09] MEDS: Enoxaparin 40 MG/0.4 ML Syringe SC (09:46)
[2021-10-09] MEDS: Aspirin 81 MG TAB.CHEW PO ×2 (10:45→17:07)
--- NOTE | 2021-10-09 12:04 | CASEMGMT ---
This RN CM spoke with [facility] as pt states her oxygen is set up thru them. Per Roland and Katherine at [facility], pt is not in their system. This RN CM back to room and pt insists that her oxygen is set up thru [facility] under Tosha Bennett. Call back to Roland at [facility] and he states that pt is listed under this full name and order is for 3L continuous and pt also has nebulizer. CM to follow. SStclaudia NAVA CM
--- NOTE | 2021-10-09 12:04 | PCM.PROGNOTE ---
Subjective Subjective Patient is tolerating a diet and her abdominal pain is rated at a 4 out of 10 as opposed to a 10 out of 10 when she came in the hospital. Objective Data Objective Data Vital Signs: Vital Signs Temp Pulse Resp BP Pulse Ox O2 Del Method O2 Flow Rate 97.9 F 109 H 18 143/46 H 99 Nasal Cannula 3 10/09/21 09:40 10/09/21 11:00 10/09/21 09:40 10/09/21 09:40 10/09/21 09:40 10/09/21 09:40 10/09/21 09:40 FiO2 32 10/08/21 07:41 Oxygen Flow Rate (L/min) 3 Oxygen Delivery Method Nasal Cannula Weight: 134 lb 7.712 oz Body Mass Index (BMI) 28.8 Intake & Output: Intake and Output for Last 24 Hours 10/07/21 10/08/21 10/09/21 23:59 23:59 23:59 Intake Total 3450 / 3450 1295 / 1695 910 / 910 Output Total 850 / 850 1250 / 1250 Balance 2600 / 2600 45 / 445 910 / 910 Lab / Micro Data Result Diagrams: 10/09/21 05:35 10/08/21 04:35 Labs: Laboratory Results - last 24 hr 10/08/21 11:48: POC Glucose 100 10/08/21 16:52: POC Glucose 95 10/08/21 21:04: POC Glucose 115 H 10/09/21 05:35: WBC 3.6 L, RBC 3.11 L, Hgb 8.5 L, Hct 27.8 L, MCV 89.4, MCH 27.3, MCHC 30.6 L, RDW Std Deviation 46.5 H, RDW Coeff of Reina 14.1, Plt Count 143 L, MPV 9.9, Immature Gran % (Auto) 0.300, Neut % (Auto) 64.9, Lymph % (Auto) 18.5 L, [place] % (Auto) 14.9 H, Eos % (Auto) 1.1, Baso % (Auto) 0.3, Absolute Neuts (auto) 2.4, Absolute Lymphs (auto) 0.67 L, Nucleated RBC % 0 10/09/21 05:35: Phosphorus 2.0 L, Magnesium 2.0 10/09/21 06:21: POC Glucose 104 Micro: Microbiology 10/07/21 05:11 Stool Enteric Bacteriology - Final 10/07/21 05:11 Stool C. difficile DNA Amplification - Final Rhythm Strip Rhythm Strip: Sinus bradycardia Rate: 46 Ectopy: None Physical Exam Const alert, oriented x3 and well nourished Constitutional Narrative: appears comfortable and nontoxic at this time HEENT head/scalp atraumatic and moist oral mucous membranes HEENT Narrative: Dentures are in place, Mallampati 2-3, no thrush Resp normal respiratory effort, no retractions and no use of accessory muscles Resp Narrative: Diffusely diminished but clear, few scattered crackles at the bases no tachypnea or respiratory extremis at this time, currently on 4 L Auscultation: crackles; Negative for rales, rhonchi or wheezes Cardio regular rate, regular rhythm, S1 normal heart sound, S2 normal heart sound, no murmurs, no rub, no gallops, no clicks and no JVD GI soft to palpation and non-distended GI Narrative: Mild diffuse tenderness, bowel sounds are hypoactive Extremity no clubbing, cyanosis or edema Extremity Narrative: 1+ pedal pulses Neuro oriented x3, moves all extremities and no focal motor deficits Speech: speech normal Assessment & Plan Assessment/Plan (1) Ischemic colitis: PLAN: Patient abdominal pain is a lot better regarding her ischemic colitis. She is less anxious with the Ativan that she is getting and her blood pressure is not as hypotensive as it was previously. I am concerned that her low blood pressure could be resulting in a chronic ischemic colitis scenario. This findings from CT angio are as follows: CT angio: 1.? Moderate amount of peripheral calcified plaque within the abdominal aorta and iliac arteries without aortic stenosis or abdominal aortic aneurysm. 2.? 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 3.? Occluded main right renal artery with the moderate right renal parenchymal atrophy consistent with chronic occlusion.? 2 small accessory right renal arteries supply the right kidney.? Severe (80%) stenosis of the proximal left renal artery. 4.? Moderate amount calcified plaque throughout the iliac arteries with a focal severe (90%) stenosis of the proximal left external carotid artery. Moderate (60%) stenosis of the proximal right common femoral artery.? The proximal right superficial femoral artery is occluded.? The left common femoral artery is obscured by streak artifact from the prosthesis. I would recommend consultation by vascular surgery and regarding the need for intervention or different medical therapy to prevent recurrent ischemic colitis in a patient with severe peripheral artery disease. Charges/Coding Visit Charges Inpatient E&M: 05483 Subs Hosp L2
[2021-10-09 12:26] LABS: Bedside Glucose 103 mg/dL (74-106)
--- NOTE | 2021-10-09 14:18 | CHAPLAIN ---
Type of Pastoral Visit _x__ Initial Visit ___ Follow-up Visit ___ On-call Visit ___ General Patient Visit ___ Spiritual Assessment ___ Family Conference ___ Bereavement ___ Rapid Response ___ Code Blue ___ Other (describe below) Pastoral Care Referral From _x__ Patient ___ Family ___ Nurse ___ Physician ___ Dental Chairside Assistant ___ Cashier Checker ___ Other (describe below) Sacrament/Intervention _x__ Active listening ___ Anointing ___ Yazidism _x__ Bereavement ___ Communion ___ Jumana exploration ___ _x__ Life review _x__ Prayer ___ Reconciliation ___ Sacrament of Sick _x__ Supportive presence ___ Wedding ___ Other (describe below) Pastoral Comments patient has been seen be fore by this ramp boss and she remembers the same; pt states I am so glad you could come today; pt speaks of a difficult season with of her brother with whom she lived and therefore is now grieving; daughter and soham have moved into her house and displaced her things which has upset her; pt is anxious about her future; pt wants to talk about her situation and asks for prayer support
--- NOTE | 2021-10-09 14:50 | PCM.PN.HOSP ---
Subjective Subjective Still with abdominal pain, she does have significant vascular abnormalities in her abdomen consistent with chronic mesenteric ischemia Objective Data Objective Data Vital Signs: Vital Signs Temp Pulse Resp BP Pulse Ox O2 Del Method O2 Flow Rate 97.9 F 108 H 20 H 143/46 H 99 Nasal Cannula 3 10/09/21 09:40 10/09/21 13:32 10/09/21 13:32 10/09/21 09:40 10/09/21 09:40 10/09/21 14:21 10/09/21 14:21 FiO2 32 10/08/21 07:41 Oxygen Flow Rate (L/min) 3 Oxygen Delivery Method Nasal Cannula Weight: 134 lb 7.712 oz Body Mass Index (BMI) 28.8 Intake & Output: Intake and Output for Last 24 Hours 10/08/21 10/09/21 10/10/21 03:59 03:59 03:59 Intake Total 2500 / 2500 1695 / 1695 700 / 700 Output Total 850 / 850 1250 / 1250 400 / 400 Balance 1650 / 1650 445 / 445 300 / 300 Lab / Micro Data Result Diagrams: 10/09/21 05:35 10/08/21 04:35 Labs: Laboratory Results - last 24 hr 10/08/21 11:48: POC Glucose 100 10/08/21 16:52: POC Glucose 95 10/08/21 21:04: POC Glucose 115 H 10/09/21 05:35: WBC 3.6 L, RBC 3.11 L, Hgb 8.5 L, Hct 27.8 L, MCV 89.4, MCH 27.3, MCHC 30.6 L, RDW Std Deviation 46.5 H, RDW Coeff of Reina 14.1, Plt Count 143 L, MPV 9.9, Immature Gran % (Auto) 0.300, Neut % (Auto) 64.9, Lymph % (Auto) 18.5 L, [place] % (Auto) 14.9 H, Eos % (Auto) 1.1, Baso % (Auto) 0.3, Absolute Neuts (auto) 2.4, Absolute Lymphs (auto) 0.67 L, Nucleated RBC % 0 10/09/21 05:35: Phosphorus 2.0 L, Magnesium 2.0 10/09/21 06:21: POC Glucose 104 10/09/21 11:32: POC Glucose 103 Micro: Microbiology 10/07/21 05:11 Stool Enteric Bacteriology - Final 10/07/21 05:11 Stool C. difficile DNA Amplification - Final Radiography Diagnostic Testing: Radiology Impression Echocardiogram 10/08/21 07:43 Interpretation Summary The study was technically limited. Contrast injection was performed. Left ventricular systolic function is hyperdynamic. The estimated ejection fraction is 75 %. The left atrium is mildly enlarged. Trivial mitral valve insufficiency. Trivial tricuspid valve insufficiency. Right ventricular systolic pressure estimated to be 53 mmHg. Diastolic function is indeterminate. Agitated saline contrast study faintly positive for right to left interatrial shunt potentially compatible with a small PFO versus ASD. Late peaking spectral Doppler pattern near the left ventricular outflow track approaching 2 m/s (peak gradient 16 mmHg) appearing compatible with a hyperdynamic state. Ordering Physician: Stacy Arnold Performed By: Glenny Mercado RCS Rhythm Strip Rhythm Strip: Sinus bradycardia Rate: 46 Ectopy: None Physical Exam Narrative General: Alert, Oriented x3, Cooperative, No apparent distress HEENT: Atraumatic, PERRLA, EOMI, Normocephalic Oral: Moist Mucosa Neck: Supple, No JVD Lungs: Diminished, Normal air movement, No rhonchi, No wheeze, No rales Cardiovascular: Regular rate, Regular Rhythm, Normal S1, Normal S2, No murmurs Abdomen: Soft, mildly tender, Non-Distended, No Hepato-splenomegaly Extremities: No edema, Capillary Refill Less than 3 Seconds Skin: No rashes, No breakdown Musculoskeletal: No Tenderness to Palpation of Joints or Extremities Neurological: Cranial nerves II-XII grossly intact, Motor Exam 5/5 strength throughout, Sensory exam intact to light touch and pain Psych/Mental Status: Normal Affect, Appropriate Assessment & Plan Assessment/Plan (1) Abdominal pain: (2) Colitis: (3) Nausea & vomiting: (4) Acute hypotension: (5) Acute respiratory failure with hypoxia: PLAN: Plan 1. Acute on chronic mesenteric ischemia/peripheral vascular disease with a history of AAA/history of CVA/tobacco abuse ? Infectious colitis work-up is negative however given the likelihood of chronic mesenteric ischemia will continue with prophylactic antibiotics ? We will consult vascular surgery upon the request by GI for opinion on her vasculature ? Appreciate GIs assistance ? She does have a history of bilateral femoral endarterectomies as well as bilateral common and external iliac stents ? 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 We will continue with her aspirin and Plavix ? Given her vasculopathy, discussed tobacco cessation 2. Acute hypoxic respiratory failure secondary to flash pulmonary edema/COPD ? She is now down to 3 L nasal cannula which is her baseline home O2 ? IV fluids are discontinued secondary to volume overload ? Echo with an EF of 75% and RVSP of 53 mmHg. Possible small PFO versus ASD 3. DM2 ? Stable ? Continue sliding scale insulin ? Accu-Cheks AC at bedtime ? We will make adjustments as necessary 4. HTN/HLD ? Will continue with her Lipitor however she did have episode of hypotension therefore we will continue to hold blood pressure medication ? We will continue to monitor blood pressures and if necessary restart her home medication 5. GERD ? Stable ? Can with PPI DVT: Lovenox Charges/Coding Visit Charges Inpatient E&M: 73404 Subs Hosp L2
[2021-10-09 17:30] LABS: Bedside Glucose 107 mg/dL (74-106)
[2021-10-09] MEDS: Atorvastatin Calcium 20 MG Tablet PO (21:07)
[2021-10-10] VITALS (15 sets, daily range): BP systolic 124–153; BP diastolic 58–102; PULSE 65–128; RESP 18–20; TEMP 36.3–37.1; O2SAT 98–100
[2021-10-10 01:31] LABS: Bedside Glucose 101 mg/dL (74-106)
[2021-10-10 05:00] LABS: Absolute Lymphocyte Count 0.57 X10^3/uL (0.83-4.51); Absolute Neutrophil Count 2.3 X10^3/uL (2.0-7.7); Basophil# 0.01 X10^3/uL; Basophil% 0.3 % (0-1); Eosinophil# 0.08 X10^3/uL; Eosinophils% 2.4 % (0-5); Hematocrit 30.7 % (37-47); Lymphocyte # 0.57 X10^3/ul (0.83-4.51); Lymphocyte % 16.8 % (19-41); Mean Corp Hgb Conc 29.3 g/dL (32-36); Mean Corpuscular Hgb 26.5 pg (27.0-32.0); Mean Corpuscular Volume 90.6 fL (81-99); Mean Platelet Vol. 10.2 fl (6.2-12.0); Monocyte# 0.42 X10^3/uL; Monocyte% 12.4 % (0-10); NRBC Flagged by Analyzer 0 % (0-5); Neutrophil % 67.5 % (47-70); POSITIVE DIFFERENTIAL YES; Platelet Count 149 K/mm3 (150-450); RBC Distribution Width SD 46.3 fl (35.1-43.9); Red Blood Count 3.39 M/mm3 (4.2-5.4); White Blood Count 3.4 K/mm3 (4.4-11.0)
[2021-10-10 05:08] LABS: Differential Indicated SCAN CRITERIA MET
[2021-10-10] MEDS: proCHLORPERazine 10 MG/2 ML Vial 5 MG IV (05:11)
[2021-10-10] MEDS: 0.9% Saline Lock 10 ML Syringe IV ×2 (05:16→06:46)
--- NOTE | 2021-10-10 05:21 | EKG12_ITS ---
Test Reason : TACHYCARDIA Blood Pressure : / mmHG Vent. Rate : 131 BPM Atrial Rate : 131 BPM P-R Int : 170 ms QRS Dur : 072 ms QT Int : 300 ms P-R-T Axes : 077 041 076 degrees QTc Int : 443 ms Sinus tachycardia Nonspecific ST-segment abnormality Confirmed by RAJI GARCIA, GINA ([id number]), map editor LEATHA GONZALEZ ([id number]) on 10/11/2021 8:27:31 AM Referred By: Confirmed By:GINA ALEGRIA MD
[2021-10-10 05:27] LABS: Anion Gap 5 (5-15); BUN 2 mg/dL (7-18); BUN/Creat Ratio 4.3 RATIO (10-20); Calcium,Total 8.3 mg/dL (8.5-10.1); Chloride 100 mmol/L (98-107); Creatinine, Serum 0.46 mg/dL (0.55-1.02); EST Glomerular Filtration Rate 141 mL/min (>60); Est Glom Filt Rate - Afr Amer 171 mL/min (>60); Estimated Creatinine Clearance 51.13 ml/min; Glucose 99 mg/dL (74-106); Potassium 3.7 mmol/L (3.5-5.1); Sodium Level 136 mmol/L (136-145)
[2021-10-10 05:29] LABS: Differential Comment SCANNED; Hypochromasia 1+
[2021-10-10] MEDS: fentaNYL 100 MCG/2 ML Ampul 25 MCG IV ×3 (05:52→22:04)
[2021-10-10] MEDS: LORazepam 1 MG Tablet PO ×2 (06:46→22:04)
[2021-10-10] MEDS: Ondansetron 4 MG/2 ML Vial IV (06:46)
[2021-10-10] MEDS: Ipratropium/Albuterol Sulfate 3 ML AMPUL.NEB INHALATION ×3 (06:51→19:02)
[2021-10-10] MEDS: Aspirin 81 MG TAB.CHEW PO ×2 (09:09→16:17)
[2021-10-10] MEDS: Clopidogrel Bisulfate 75 MG Tablet PO (09:09)
[2021-10-10] MEDS: Enoxaparin 40 MG/0.4 ML Syringe SC (09:10)
[2021-10-10] MEDS: Gabapentin 800 MG Tablet PO ×3 (09:17→16:19)
[2021-10-10 11:10] LABS: Bedside Glucose 115 mg/dL (74-106)
[2021-10-10] MEDS: oxyCODONE 5 MG Tablet PO ×2 (11:31→16:17)
[2021-10-10] MEDS: Acetaminophen 325 MG Tablet 650 MG PO ×2 (11:31→16:16)
[2021-10-10 11:51] LABS: Bedside Glucose 94 mg/dL (74-106)
--- NOTE | 2021-10-10 13:03 | PCM.PN.HOSP ---
Subjective Subjective She was able to have some bowel movements yesterday so she is feeling a little bit better today. Pain is improved Objective Data Objective Data Vital Signs: Vital Signs Temp Pulse Resp BP Pulse Ox O2 Del Method O2 Flow Rate 98.7 F 125 H 18 152/83 H 98 Nasal Cannula 3 10/10/21 09:10 10/10/21 11:30 10/10/21 09:10 10/10/21 09:10 10/10/21 09:10 10/10/21 09:10 10/10/21 09:10 FiO2 32 10/08/21 07:41 Oxygen Flow Rate (L/min) 3 Oxygen Delivery Method Nasal Cannula Weight: 134 lb 7.712 oz Body Mass Index (BMI) 28.8 Intake & Output: Intake and Output for Last 24 Hours 10/09/21 10/10/21 10/11/21 03:59 03:59 03:59 Intake Total 1695 / 1695 1150 / 1150 560 / 560 Output Total 1250 / 1250 400 / 400 Balance 445 / 445 750 / 750 560 / 560 Lab / Micro Data Result Diagrams: 10/10/21 04:05 10/10/21 04:05 Labs: Laboratory Results - last 24 hr 10/09/21 17:06: POC Glucose 107 H 10/09/21 21:06: POC Glucose 101 10/10/21 04:05: WBC 3.4 L, RBC 3.39 L, Hgb 9.0 L, Hct 30.7 L, MCV 90.6, MCH 26.5 L, MCHC 29.3 L, RDW Std Deviation 46.3 H, RDW Coeff of Reina 14.0, Plt Count 149 L, MPV 10.2, Immature Gran % (Auto) 0.600, Neut % (Auto) 67.5, Lymph % (Auto) 16.8 L, [place] % (Auto) 12.4 H, Eos % (Auto) 2.4, Baso % (Auto) 0.3, Absolute Neuts (auto) 2.3, Absolute Lymphs (auto) 0.57 L, Nucleated RBC % 0, Differential Comment SCANNED, Diff Path Review May foll, Hypochromasia 1+ 10/10/21 04:05: Sodium 136, Potassium 3.7, Chloride 100, Carbon Dioxide 31.0, Anion Gap 5, BUN 2 L, Creatinine 0.46 L, Estim Creat Clear Calc 51.13, Est GFR (MDRD) Af Amer 171, Est GFR (MDRD) Non-Af 141, BUN/Creatinine Ratio 4.3 L, Glucose 99, Calcium 8.3 L 10/10/21 06:03: POC Glucose 115 H 10/10/21 11:30: POC Glucose 94 Micro: Microbiology 10/07/21 05:11 Stool Enteric Bacteriology - Final 10/07/21 05:11 Stool C. difficile DNA Amplification - Final Radiography Diagnostic Testing: Radiology Impression Echocardiogram 10/08/21 07:43 Interpretation Summary The study was technically limited. Contrast injection was performed. Left ventricular systolic function is hyperdynamic. The estimated ejection fraction is 75 %. The left atrium is mildly enlarged. Trivial mitral valve insufficiency. Trivial tricuspid valve insufficiency. Right ventricular systolic pressure estimated to be 53 mmHg. Diastolic function is indeterminate. Agitated saline contrast study faintly positive for right to left interatrial shunt potentially compatible with a small PFO versus ASD. Late peaking spectral Doppler pattern near the left ventricular outflow track approaching 2 m/s (peak gradient 16 mmHg) appearing compatible with a hyperdynamic state. Ordering Physician: Stacy Arnold Performed By: Glenny Mercado RCS Rhythm Strip Rhythm Strip: Sinus bradycardia Rate: 46 Ectopy: None Physical Exam Narrative General: Alert, Oriented x3, Cooperative, No apparent distress HEENT: Atraumatic, PERRLA, EOMI, Normocephalic Oral: Moist Mucosa Neck: Supple, No JVD Lungs: Diminished, Normal air movement, No rhonchi, No wheeze, No rales Cardiovascular: Regular rate, Regular Rhythm, Normal S1, Normal S2, No murmurs Abdomen: Soft, mildly tender, Non-Distended, No Hepato-splenomegaly Extremities: No edema, Capillary Refill Less than 3 Seconds Skin: No rashes, No breakdown Musculoskeletal: No Tenderness to Palpation of Joints or Extremities Neurological: Cranial nerves II-XII grossly intact, Motor Exam 5/5 strength throughout, Sensory exam intact to light touch and pain Psych/Mental Status: Normal Affect, Appropriate Assessment & Plan Assessment/Plan (1) Abdominal pain: (2) Colitis: (3) Nausea & vomiting: (4) Acute hypotension: (5) Acute respiratory failure with hypoxia: PLAN: Plan 1. Acute on chronic mesenteric ischemia/peripheral vascular disease with a history of AAA/history of CVA/tobacco abuse ? Infectious colitis work-up is negative however given the likelihood of chronic mesenteric ischemia will continue with prophylactic antibiotics ? We will consult vascular surgery upon the request by GI for opinion on her vasculature ? Appreciate GIs assistance ? She does have a history of bilateral femoral endarterectomies as well as bilateral common and external iliac stents ? 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 We will continue with her aspirin and Plavix ? Given her vasculopathy, discussed tobacco cessation 2. Acute hypoxic respiratory failure secondary to flash pulmonary edema/COPD ? She is now down to 3 L nasal cannula which is her baseline home O2 ? IV fluids are discontinued secondary to volume overload ? Echo with an EF of 75% and RVSP of 53 mmHg. Possible small PFO versus ASD 3. DM2 ? Stable ? Continue sliding scale insulin ? Accu-Cheks AC at bedtime ? We will make adjustments as necessary 4. HTN/HLD ? Will continue with her Lipitor however she did have episode of hypotension therefore we will continue to hold blood pressure medication ? We will continue to monitor blood pressures and if necessary restart her home medication 5. GERD ? Stable ? Can with PPI DVT: Lovenox Charges/Coding Visit Charges Inpatient E&M: 72930 Subs Hosp L2
[2021-10-10 13:30] LABS: Pathologist Review Reviewed
--- NOTE | 2021-10-10 14:13 | CASEMGMT ---
SW checked back in with patient as she was given information on advance directives, but did not want to complete documents at that time. Patient said she does want to do the documents, but not right now as she is too tired. SW will check back as able. Carolyn Green MEDICAL RECEPTIONISTDonny RUIZ
[2021-10-10] MEDS: Metoprolol Tartrate 50 MG Tablet PO ×2 (16:19→22:05)
[2021-10-10 16:55] LABS: Bedside Glucose 109 mg/dL (74-106)
--- NOTE | 2021-10-10 18:03 | CON.PCM.SX_ITS ---
Assessment & Plan Assessment/Plan (1) Peripheral arterial occlusive disease: PLAN: -disease in multiple vascular beds with prior interventions -mesenteric: CTA images reviewed, widely patent prior supra-celiac aorta to hepatic and SMA bypass with bifurcated graft -carotid: prior endart with no recent imaging -renal: widely patent left renal stent on CTA with main right renal artery apparent occlusion with large collaterals -iliac/LE: iliac stents appear widely patent on CTA -given intact mesenteric bypass and pattern of symptoms mesenteric ischemia not etiology of symptoms, at least no macrovascular system; no imaging or inter vention indicated at this time -would like to establish care for vascular disease; will obtain duplex of carotids and PVR, plan outpatient follow up HPI Consult Data Date of Consult: 10/10/21 HPI Narrative HPI Narrative: MEME JOHNSON, is a 71 F who has chronic abdominal pain and constipation with worsened pain/pressure in lower abdomen over the past week. Some improvement with small BM. She takes very little PO due to discomfort/bloating. She has history of prior SMA stent which ultimately occluded and eventual aorto- mesenteric bifurcated bypass performed several years ago by Dr. Velasquez at [facility]. She does not recall her symptom pattern prior to bypass. Also history of renal artery stenosis with left renal stent, iliac stents (? Dr. Burgos), bilateral carotid endarterectomy (? Dr. Velasquez), and a left above knee amputation. Has not seen either surgeon in several years and has not had any recent imaging [facility] Medical History (Updated 10/09/21 @ 12:[address] Maldonado Friend, DO) Abdominal pain Acute kidney injury Anemia Appetite loss Atherosclerosis of [place] artery of left lower extremity Cerebrovascular disease Chronic diastolic (congestive) heart failure Chronic hypoxemic respiratory failure Chronic ulcer of left foot with fat layer exposed Closed left hip fracture COPD (chronic obstructive pulmonary disease) COPD (chronic obstructive pulmonary disease) Debility Diabetes Diabetic polyneuropathy Elevated troponin Essential (primary) hypertension Foot ulcer, left Fracture of fifth toe, left, closed GERD (gastroesophageal reflux disease) Hammer toe of left foot History of CVA (cerebrovascular accident) History of non-ST elevation myocardial infarction (NSTEMI) (05/29/19) Hyperlipidemia Hyponatremia Insomnia Left humeral fracture Neuropathic pain Nicotine dependence Osteoporosis Other specified peripheral vascular diseases Peripheral arterial occlusive disease Seizure disorder Seizure disorder Shortness of breath Thrombocytopenia Tobacco user Type 2 diabetes mellitus with diabetic polyneuropathy Vertebral compression fracture Home Medications albuterol sulfate 90 mcg/actuation aerosol inhaler 2 puff inhalation Q6H PRN PRN Sob &/Or Wheezing 04/05/17 [History Last Taken Unknown] gabapentin 600 mg tablet 800 mg PO TIDCM PAIN 04/05/17 [History Last Taken 01/22/20] ipratropium 0.5 mg-albuterol 3 mg (2.5 mg base)/3 mL nebulization soln 3 ml inhalation Q6HWA.RT WHEEZING 04/05/17 [History Last Taken 01/29/20] budesonide 0.5 mg/2 mL suspension for nebulization 0.5 mg inhalation BID COPD 08/21/17 [History Last Taken 01/29/20] metoprolol tartrate 50 mg tablet 50 mg PO TID HEART/BP 10/18/17 [History Last Taken 01/29/20 08:30] amlodipine 2.5 mg tablet 2.5 mg PO DAILY bp 05/29/19 [History Last Taken 01/22/20] albuterol sulfate 2.5 mg/3 mL (0.083 %) solution for nebulization 2.5 mg (3 mL) inhalation Q2H PRN PRN DYSPNEA 06/01/19 [Rx Last Taken Unknown] acetaminophen 500 mg tablet 1,000 mg PO Q6H PRN PRN Pain Score 1-3/10 06/16/19 [Rx Last Taken Unknown] aspirin 81 mg chewable tablet 81 mg PO BID heart ##20 06/16/19 [Rx Last Taken 01/22/20] ondansetron 4 mg disintegrating tablet 4 mg PO Q8H PRN PRN NAUSEA #21 tabs 06/16/19 [Rx Last Taken Unknown] losartan 100 mg tablet 100 mg PO DAILY bp 06/23/19 [History Last Taken 01/22/20] atorvastatin 20 mg tablet 20 mg PO QHS cholesterol 01/29/20 [History Last Taken 01/22/20] clopidogrel 75 mg tablet 75 mg PO DAILY antiplatelet 01/29/20 [History Last Taken 01/22/20] mirtazapine 30 mg tablet 30 mg PO QHS SLEEP 01/29/20 [History Last Taken 01/22/20] pantoprazole 40 mg tablet,delayed release 40 mg PO DAILY GERD 01/29/20 [History Last Taken 01/22/20] promethazine 25 mg tablet 25 mg PO Q6H PRN PRN Nausea 01/29/20 [History Last Taken Unknown] Allergy/AdvReac Type Severity Reaction Status Date / Time pregabalin [From Lyrica] Allergy Rash Verified 12/01/20 15:28 duloxetine [From Cymbalta] AdvReac Vomiting Verified 12/01/20 15:28 sertraline HCl [From Zoloft] AdvReac MAKES ME Verified 12/01/20 15:28 CRAZY Family History Mother CVA (cerebral vascular accident) Family History other Surgical History abdominal aorta endovascular stent graft bilateral femoral endarterectomy bilateral iliac stenting History of above knee amputation (08/28/17) History of appendectomy History of bilateral carotid endarterectomy History of cholecystectomy (2019) History of hemiarthroplasty of left hip (05/29/19) History of hysterectomy Social History (Updated 10/07/21 @ 03:[address] Noemí Garham MD) household members: none Smoking Status: Current some day smoker tobacco type: cigarettes Smokeless tobacco user: other alcohol intake: never substance use type: does not use caffeine: Yes Type: coffee Number of servings: 1 ROS Constitutional Constitutional: Denies chills, fever(s), frequent falls, lethargy or weakness Eyes Eyes: Denies blind spots, change in vision or loss of vision ENT HEENT: Denies bleeding gums, hoarseness or sore throat Cardiovascular Cardiovascular: Reports abdominal pain; Denies bluish discoloration of hand/feet, chest pain with activity, claudication, cold extremities, cyanosis, erythema on extremities, irregular heart rhythm, leg edema, leg ulcers, numbness in extremities or weakness in extremities Respiratory/Chest Respiratory/Chest: Denies cough, excessive phlegm production or wheezing Gastrointestinal Gastrointestinal: Reports anorexia and constipation; Denies diarrhea, melena or rectal bleeding Genitourinary Genitourinary: Denies dysuria or hematuria Integumentary Integumentary: Reports other Details: ; Denies erythema, non-healing lesions or wounds Neurologic Neurologic: Denies abnormal speech, focal weakness, headache(s), loss of vision, numbness, paresthesias or sensory deficit Hematologic/Lymphatic Hematologic/Lymphatic: Denies easy bleeding, easy bruising or lymphadenopathy Physical Exam Const alert, oriented x3, no apparent distress and healthy appearing General Appearance: cooperative; Negative for combative or lethargic Orientation / Consciousness: awake Exam Limitations: no limitations HEENT Head and Scalp: normocephalic and atraumatic Eyes EOMs intact bilaterally General Eye: normal appearance of both eyes Neck full ROM Resp normal respiratory effort and no use of accessory muscles Effort and Inspection: Negative for labored, stridor or audible wheezes Cardio regular rate and regular rhythm Peripheral Pulses: brachial pulses present, radial pulses present and femoral pulses present; Negative for popliteal pulses present, posterior tibial pulses present or dorsalis pedis pulses present GI soft to palpation, non-tender and hepatosplenomegaly Inspection: abdominal distention Back/Spine Cervical Spine: cervical ROM normal Extremity full ROM and no clubbing, cyanosis or edema Extremity Narrative: prior left above knee amputation Skin no rashes or lesions noted and no wounds Neuro oriented x3, CN's II-XII intact bilaterally, no focal motor deficits and no sensory deficits noted Psych thought process normal, cooperative, affect normal, speech normal and activity/motor behavior normal Lab / Micro Data Result Diagrams: 10/10/21 04:05 10/10/21 04:05 Labs: Laboratory Results - last 24 hr 10/09/21 21:06: POC Glucose 101 10/10/21 04:05: WBC 3.4 L, RBC 3.39 L, Hgb 9.0 L, Hct 30.7 L, MCV 90.6, MCH 26.5 L, MCHC 29.3 L, RDW Std Deviation 46.3 H, RDW Coeff of Reina 14.0, Plt Count 149 L , MPV 10.2, Immature Gran % (Auto) 0.600, Neut % (Auto) 67.5, Lymph % (Auto) 16.8 L, [place] % (Auto) 12.4 H, Eos % (Auto) 2.4, Baso % (Auto) 0.3, Absolute Neuts (auto) 2.3, Absolute Lymphs (auto) 0.57 L, Nucleated RBC % 0, Differential Comment SCANNED, Diff Path Review Reviewed, Hypochromasia 1+ 10/10/21 04:05: Sodium 136, Potassium 3.7, Chloride 100, Carbon Dioxide 31.0, Anion Gap 5, BUN 2 L, Creatinine 0.46 L, Estim Creat Clear Calc 51.13, Est GFR (MDRD) Af Amer 171, Est GFR (MDRD) Non-Af 141, BUN/Creatinine Ratio 4.3 L, Glucose 99, Calcium 8.3 L 10/10/21 06:03: POC Glucose 115 H 10/10/21 11:30: POC Glucose 94 10/10/21 16:22: POC Glucose 109 H Rhythm Strip Rhythm Strip: Sinus bradycardia Rate: 46 Ectopy: None Charges/Coding Visit Charges Inpatient E&M: 82988 Init Hosp L2
--- NOTE | 2021-10-10 18:17 | CDU_ITS ---
Reason For Study: Bilateral carotid stenosis Rt. Velocities/BP Lt. Velocities/BP Prox CCA 156.2/31.9 cm/sec. Prox CCA 143/40.7 cm/sec. Mid CCA 138.1/34.5 cm/sec. Mid CCA 150.3/40.7 cm/sec. Dist CCA 91.9/22.5 cm/sec. Dist CCA 91.9/29.8 cm/sec. Prox ICA 69.1/18.8 cm/sec. Prox ICA 112/29.8 cm/sec. Mid ICA 150.5/49.9 cm/sec. Mid ICA 135.7/55.3 cm/sec. Dist ICA 166.3/55.8 cm/sec. Dist ICA 146.7/60.8 cm/sec. Rt. ICA/CCA = 1.20. Lt. ICA/CCA = 1.03. Prox ECA 70 cm/sec. Prox ECA 75.4/6 cm/sec. Rt. Vert. 48.7/20.1 cm/sec. Lt. Vert. 82.7/17 cm/sec. Right Extracranial There is heterogeneous, irregular atherosclerotic plaque noted in the right common carotid artery. There is heterogeneous, irregular atherosclerotic plaque noted in the right internal carotid artery. The right internal carotid artery is very tortuous. There is intimal thickening but no significant atherosclerotic plaque noted in the right external carotid artery. Antegrade flow is noted in the right vertebral artery. Left Extracranial There is heterogeneous, irregular atherosclerotic plaque noted in the left common carotid artery. There is heterogeneous, irregular atherosclerotic plaque noted in the left internal carotid artery. There is homogeneous, smooth atherosclerotic plaque noted in the left external carotid artery. Antegrade flow is noted in the left vertebral artery. VL/Carotid Duplex Ultrasound Interpretation Summary Moderate (50-69%) stenosis right extracranial internal carotid. Moderate (50-69%) stenosis left extracranial internal carotid. Patent and antegrade vertebrals bilaterally. Ordering Physician: Noah Allen Referring Physician: Irasema Jonas Performed By: Kayleigh Berg RVT
--- NOTE | 2021-10-10 18:17 | ART_ITS ---
Reason For Study: PVD Procedure A bilateral lower extremity continuous wave Doppler with analog waveform analysis,segmental pressures,and ankle brachial indexes without exercise. Left Segmental Pressures Left brachial= 151mmHg. Right Segmental Pressures Right calf = >254mmHg. Right posterior tibial artery = 105mmHg. Right dorsalis pedis artery = 83mmHg. Right digit = 82 mmHg. Indices The right ankle brachial index by the posterior tibial artery is 0.55. The right ankle brachial index by the dorsalis pedis is 0.55. The right digital-brachial index is 0.54. VL/Lower Ext Art Exam w/o Exercis Interpretation Summary Right RUPAL 0.7, moderate arterial insufficiency. Doppler/PVR waveforms and segme ntal pressures with three cuff method reveal SFA/popliteal disease. Prior left above knee amputation Ordering Physician: Noah Allen Referring Physician: Irasema Jonas Performed By: Coni Gallagher RDCS/RVT
[2021-10-10] MEDS: Atorvastatin Calcium 20 MG Tablet PO (22:04)
[2021-10-10] MEDS: Polyethylene Glycol 3350 17 GM PACKET PO (22:04)
[2021-10-10 22:11] LABS: Bedside Glucose 135 mg/dL (74-106)
[2021-10-11] VITALS (19 sets, daily range): BP systolic 98–180; BP diastolic 60–86; PULSE 69–90; RESP 15–20; TEMP 36.3–37.1; O2SAT 97–100
[2021-10-11] MEDS: Metoprolol Tartrate 50 MG Tablet PO ×3 (05:35→22:47)
[2021-10-11] MEDS: 0.9% Saline Lock 10 ML Syringe IV (05:35)
[2021-10-11] MEDS: fentaNYL 100 MCG/2 ML Ampul 25 MCG IV (05:35)
[2021-10-11] MEDS: Ipratropium/Albuterol Sulfate 3 ML AMPUL.NEB INHALATION ×3 (07:07→19:10)
[2021-10-11 07:31] LABS: Bedside Glucose 110 mg/dL (74-106)
[2021-10-11] MEDS: Aspirin 81 MG TAB.CHEW PO ×2 (08:43→16:19)
[2021-10-11] MEDS: Gabapentin 800 MG Tablet PO ×3 (08:43→16:19)
[2021-10-11] MEDS: Clopidogrel Bisulfate 75 MG Tablet PO (08:43)
[2021-10-11] MEDS: Enoxaparin 40 MG/0.4 ML Syringe SC (08:43)
[2021-10-11] MEDS: Ondansetron 4 MG/2 ML Vial IV ×2 (08:44→22:52)
[2021-10-11] MEDS: Polyethylene Glycol 3350 17 GM PACKET PO (08:57)
[2021-10-11] MEDS: oxyCODONE 5 MG Tablet PO ×3 (09:13→22:51)
[2021-10-11] MEDS: Senna/Docusate Sodium 1 Tablet PO (09:13)
[2021-10-11] MEDS: Acetaminophen 325 MG Tablet 650 MG PO ×3 (09:13→22:51)
[2021-10-11] MEDS: Sodium Chloride 0.65% 1 SPRAY SPRAY.BTL 2 SPRAY NASAL (09:29)
[2021-10-11] MEDS: LORazepam 1 MG Tablet PO (10:39)
[2021-10-11 11:20] LABS: Bedside Glucose 122 mg/dL (74-106)
--- NOTE | 2021-10-11 13:14 | CASEMGMT ---
YASMIN did check back with patient about completing advance directives. Patient did not want to do them right now. YASMIN provided patient with a Social Service oliver card. YASMIN told patient she can call the phone number and schedule an appointment to complete documents. Patient thanked YASMIN. Carolyn RUIZ
--- NOTE | 2021-10-11 14:11 | PN.HOSP_ITS ---
Subjective Subjective Feels little bit better today, still has intermittent abdominal pain especially with food. No issues overnight. Objective Data Objective Data Vital Signs: Vital Signs Temp Pulse Resp BP Pulse Ox O2 Del Method O2 Flow Rate 98.8 F 78 19 H 139/60 H 97 Nasal Cannula 3 10/11/21 08:32 10/11/21 12:33 10/11/21 12:33 10/11/21 08:32 10/11/21 08:32 10/11/21 09:19 10/11/21 09:19 FiO2 32 10/08/21 07:41 Oxygen Flow Rate (L/min) 3 Oxygen Delivery Method Nasal Cannula Weight: 134 lb 7.712 oz Body Mass Index (BMI) 28.8 Intake & Output: Intake and Output for Last 24 Hours 10/10/21 10/11/21 10/12/21 03:59 03:59 03:59 Intake Total 1150 / 1150 1570 / 1570 680 / 680 Output Total 400 / 400 1350 / 1350 Balance 750 / 750 220 / 220 680 / 680 Lab / Micro Data Result Diagrams: 10/10/21 04:05 10/10/21 04:05 Labs: Laboratory Results - last 24 hr 10/10/21 16:22: POC Glucose 109 H 10/10/21 21:46: POC Glucose 135 H 10/11/21 07:04: POC Glucose 110 H 10/11/21 10:56: POC Glucose 122 H Micro: Microbiology 10/07/21 05:11 Stool Enteric Bacteriology - Final 10/07/21 05:11 Stool C. difficile DNA Amplification - Final Rhythm Strip Rhythm Strip: Sinus bradycardia Rate: 46 Ectopy: None Physical Exam Narrative General: Alert, Oriented x3, Cooperative, No apparent distress HEENT: Atraumatic, PERRLA, EOMI, Normocephalic Oral: Moist Mucosa Neck: Supple, No JVD Lungs: Diminished, Normal air movement, No rhonchi, No wheeze, No rales Cardiovascular: Regular rate, Regular Rhythm, Normal S1, Normal S2, No murmurs Abdomen: Soft, mildly tender, Non-Distended, No Hepato-splenomegaly Extremities: No edema, Capillary Refill Less than 3 Seconds Skin: No rashes, No breakdown Musculoskeletal: No Tenderness to Palpation of Joints or Extremities Neurological: Cranial nerves II-XII grossly intact, Motor Exam 5/5 strength throughout, Sensory exam intact to light touch and pain Psych/Mental Status: Normal Affect, Appropriate Assessment & Plan Assessment/Plan (1) Abdominal pain: (2) Colitis: (3) Nausea & vomiting: (4) Acute hypotension: (5) Acute respiratory failure with hypoxia: PLAN: Plan 1. Acute on chronic mesenteric ischemia/peripheral vascular disease with a history of AAA/history of CVA/tobacco abuse ? Infectious colitis work-up is negative however given the likelihood of chronic mesenteric ischemia will continue with prophylactic antibiotics ? We will consult vascular surgery upon the request by GI for opinion on her vasculature, ABIs and carotid Dopplers are pending ? Appreciate GIs assistance ? She does have a history of bilateral femoral endarterectomies as well as bilateral common and external iliac stents ? 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 We will continue with her aspirin and Plavix ? Given her vasculopathy, discussed tobacco cessation 2. Acute hypoxic respiratory failure secondary to flash pulmonary edema/COPD ? She is now down to 3 L nasal cannula which is her baseline home O2 ? IV fluids are discontinued secondary to volume overload ? Echo with an EF of 75% and RVSP of 53 mmHg. Possible small PFO versus ASD 3. DM2 ? Stable ? Continue sliding scale insulin ? Accu-Cheks AC at bedtime ? We will make adjustments as necessary 4. HTN/HLD ? Will continue with her Lipitor however she did have episode of hypotension therefore we will continue to hold blood pressure medication ? We will continue to monitor blood pressures and if necessary restart her home medication 5. GERD ? Stable ? Can with PPI DVT: Lovenox Charges/Coding Visit Charges Inpatient E&M: 08106 Subs Hosp L2
[2021-10-11] MEDS: Albuterol 2.5 MG/3 ML VIAL.NEB. INHALATION (16:19)
[2021-10-11 16:50] LABS: Bedside Glucose 86 mg/dL (74-106)
[2021-10-11] MEDS: Mirtazapine 30 MG Tablet PO (22:46)
[2021-10-11] MEDS: Atorvastatin Calcium 20 MG Tablet PO (22:46)
[2021-10-12] VITALS (7 sets, daily range): BP systolic 113–147; BP diastolic 64–83; PULSE 72–89; RESP 12–18; TEMP 36.3–36.7; O2SAT 95–100
[2021-10-12] LABS: Bedside Glucose 91 mg/dL (74-106)
[2021-10-12] MEDS: Metoprolol Tartrate 50 MG Tablet PO (06:03)
[2021-10-12] MEDS: Sodium Chloride 0.65% 1 SPRAY SPRAY.BTL 2 SPRAY NASAL (06:07)
[2021-10-12 06:51] LABS: Bedside Glucose 99 mg/dL (74-106)
[2021-10-12] MEDS: Ipratropium/Albuterol Sulfate 3 ML AMPUL.NEB INHALATION (07:12)
[2021-10-12] MEDS: Ondansetron 4 MG/2 ML Vial IV (09:47)
[2021-10-12] MEDS: Gabapentin 800 MG Tablet PO ×2 (09:47→11:41)
[2021-10-12] MEDS: oxyCODONE 5 MG Tablet PO (09:48)
[2021-10-12] MEDS: Senna/Docusate Sodium 1 Tablet PO (09:48)
[2021-10-12] MEDS: LORazepam 1 MG Tablet PO (09:48)
[2021-10-12] MEDS: Acetaminophen 325 MG Tablet 650 MG PO (09:48)
[2021-10-12] MEDS: Clopidogrel Bisulfate 75 MG Tablet PO (09:48)
[2021-10-12] MEDS: Aspirin 81 MG TAB.CHEW PO (09:49)
[2021-10-12] MEDS: Enoxaparin 40 MG/0.4 ML Syringe SC (09:49)
--- NOTE | 2021-10-12 10:46 | CASEMGMT ---
Addendum entered by Kayleigh Matthew 10/12/21 11:26: This RN CM to room to discuss discharge plan and pt states no concerns with going home with resumption of services. Pt declines need for any further therapy at discharge. Pt voices no further questions/concerns/needs. Shanti NAVA CM Original Note: This RN CM to room to room to discuss discharge plan and pt is currently on commode. This RN CM will attempt again later per pt request. Shanti NAVA CM
--- NOTE | 2021-10-12 11:10 | DCINST_ITS ---
Discharge Instructions Diet Discharge Diet: Low fat / Low cholesterol Activity Discharge Activity: Return to Normal Activity Dressing / Incision Call your doctor if you observe: Fever of 101 or Higher, Shortness of breath, Dizziness, Fainting spells, Swelling in the ankles, Chest pain and Increased palpitations (irregular heartbeat) Follow Up Care Test Results: Test results from this visit will be discussed in further detail at your follow- up appointment, if applicable. Discharge Plan Admission Admit Date/Time: 10/07/21 03:08 Attending Provider: Marcelino Leahy Primary Care Provider: Irasema Jonas Consulting Providers: Noemí Graham ; Stacy Arnold ; Noah Allen Discharge Orders/Prescriptions Prescriptions: New polyethylene glycol 3350 17 gram Powder In Packet 17 g PO BID Qty: 60 0RF sennosides-docusate sodium [Stool Softener-Stimulant Laxat] 8.6-50 mg Tablet 1 tab PO DAILY Qty: 30 0RF oxycodone 5 mg Tablet 5 mg PO Q4H PRN PRN (Reason: Pain Score 4-5) 3 Days Qty: 10 0RF Continued losartan 100 mg tablet 100 mg PO DAILY gabapentin 600 MG tablet 800 mg PO TIDCM ipratropium-albuterol 3 ML solution for nebulization 3 ml inhalation Q6HWA.RT albuterol sulfate 1 PUFF inhaler 2 puff inhalation Q6H PRN PRN (Reason: Sob &/Or Wheezing) metoprolol tartrate 50 mg tablet 50 mg PO TID budesonide 0.5 MG/2 ML suspension for nebulization 0.5 mg inhalation BID amlodipine 2.5 MG tablet 2.5 mg PO DAILY albuterol sulfate 2.5 MG/3 ML solution for nebulization 2.5 mg inhalation Q2H PRN PRN (Reason: DYSPNEA) 0RF acetaminophen 500 MG tablet 1,000 mg PO Q6H PRN PRN (Reason: Pain Score 1-3/10) 0RF ondansetron 4 MG tablet 4 mg PO Q8H PRN PRN (Reason: NAUSEA) Qty: 21 0RF aspirin 81 MG tablet,chewable 81 mg PO BID Qty: 20 0RF promethazine 25 MG tablet 25 mg PO Q6H PRN PRN (Reason: Nausea) pantoprazole 40 MG tablet 40 mg PO DAILY mirtazapine 30 MG tablet 30 mg PO QHS atorvastatin 20 MG tablet 20 mg PO QHS clopidogrel 75 MG tablet 75 mg PO DAILY Referrals / Follow Up: Irasema Jonas MD [Primary Care Provider] - Within 1 Week Noah Allen MD [Med Staff - Active Staff] - Within 1 Month Joel Ann DO [Med Staff - Active Staff] - Within 2 Weeks Care Physician,No Primary [Non-Staff] - Disposition Disposition (needs filled in before D/C Order can be placed): Home Health Service
--- NOTE | 2021-10-12 11:38 | PCM.DC.SUM ---
Providers Date of Admission: 10/07/21 Primary Care Physician: Dr. Irasema Jonas MD Consultations 10/07/21 07:00 Consult: Gastroenterology Routine Consulting Provider: [facility] Reason for Consult: Colitis, atypical presentation, ? infectious versus ischemic versus inflamm EMERGENT Consult: No Notified: Yes Date Notified: 10/07/21 Time Notified: 03:10 Method of Notification: Text 10/09/21 14:49 Consult: Vascular Surgery Routine Consulting Provider: Noah Allen Reason for Consult: Opinion on vascular anatomy with occlusion of SMA EMERGENT Consult: No Notified: Yes Date Notified: 10/09/21 Time Notified: 14:49 Method of Notification: Text Method of Consult:: In-Person Comments:: In the setting of chronic mesenteric ischemia Reason For Visit: COLITIS, HYPOTENSION Diagnosis Discharge Diagnosis (1) Abdominal pain: Status: Acute Code(s): R10.9 - Unspecified abdominal pain (2) Colitis: Status: Acute Code(s): K52.9 - Noninfective gastroenteritis and colitis, unspecified (3) Nausea & vomiting: Status: Acute Code(s): R11.2 - Nausea with vomiting, unspecified (4) Acute hypotension: Status: Acute Code(s): I95.9 - Hypotension, unspecified (5) Acute respiratory failure with hypoxia: Status: Acute Code(s): J96.01 - Acute respiratory failure with hypoxia Plan 1. Acute on chronic mesenteric ischemia/peripheral vascular disease with a history of AAA/history of CVA/tobacco abuse ? Infectious colitis work-up is negative however given the likelihood of chronic mesenteric ischemia will continue with prophylactic antibiotics ? We will consult vascular surgery upon the request by GI for opinion on her vasculature, ABIs and carotid Dopplers are pending ? Appreciate GIs assistance ? She does have a history of bilateral femoral endarterectomies as well as bilateral common and external iliac stents ? 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 We will continue with her aspirin and Plavix ? Given her vasculopathy, discussed tobacco cessation 2. Acute hypoxic respiratory failure secondary to flash pulmonary edema/COPD ? She is now down to 3 L nasal cannula which is her baseline home O2 ? IV fluids are discontinued secondary to volume overload ? Echo with an EF of 75% and RVSP of 53 mmHg. Possible small PFO versus ASD 3. DM2 ? Stable ? Continue sliding scale insulin ? Accu-Cheks AC at bedtime ? We will make adjustments as necessary 4. HTN/HLD ? Will continue with her Lipitor however she did have episode of hypotension therefore we will continue to hold blood pressure medication ? We will continue to monitor blood pressures and if necessary restart her home medication 5. GERD ? Stable ? Can with PPI DVT: Lovenox Medications at Discharge Home Medications albuterol sulfate 90 mcg/actuation aerosol inhaler 2 puff inhalation Q6H PRN PRN Sob &/Or Wheezing 04/05/17 gabapentin 600 mg tablet 800 mg PO TIDCM PAIN 04/05/17 ipratropium 0.5 mg-albuterol 3 mg (2.5 mg base)/3 mL nebulization soln 3 ml inhalation Q6HWA.RT WHEEZING 04/05/17 budesonide 0.5 mg/2 mL suspension for nebulization 0.5 mg inhalation BID COPD 08/21/17 metoprolol tartrate 50 mg tablet 50 mg PO TID HEART/BP 10/18/17 amlodipine 2.5 mg tablet 2.5 mg PO DAILY bp 05/29/19 albuterol sulfate 2.5 mg/3 mL (0.083 %) solution for nebulization 2.5 mg (3 mL) inhalation Q2H PRN PRN DYSPNEA 06/01/19 acetaminophen 500 mg tablet 1,000 mg PO Q6H PRN PRN Pain Score 1-3/10 06/16/19 aspirin 81 mg chewable tablet 81 mg PO BID heart ##20 06/16/19 ondansetron 4 mg disintegrating tablet 4 mg PO Q8H PRN PRN NAUSEA #21 tabs 06/16/19 losartan 100 mg tablet 100 mg PO DAILY bp 06/23/19 atorvastatin 20 mg tablet 20 mg PO QHS cholesterol 01/29/20 clopidogrel 75 mg tablet 75 mg PO DAILY antiplatelet 01/29/20 mirtazapine 30 mg tablet 30 mg PO QHS SLEEP 01/29/20 pantoprazole 40 mg tablet,delayed release 40 mg PO DAILY GERD 01/29/20 promethazine 25 mg tablet 25 mg PO Q6H PRN PRN Nausea 01/29/20 oxycodone 5 mg tablet 5 mg PO Q4H PRN PRN Pain Score 4-5 3 days #10 tabs 10/12/21 polyethylene glycol 3350 17 gram oral powder packet 17 g PO BID #60 ea 10/12/21 sennosides 8.6 mg-docusate sodium 50 mg tablet (Stool Softener-Stimulant Laxative) 1 tab PO DAILY #30 tabs 10/12/21 Hospital Course Operations None Procedures 2-D Echocardiogram Summary of Care Provided Minutes Spent on Discharge: 43 Hospital Course: Per HPI: The patient is a 71 y/o F w/ PMHx: Hx CVA, COPD w/ Chronic Hypoxic Respiratory Failure (3L NC), CAD, Chronic Diastolic CHF, Diabetes mellitus type II with neuropathy, Chronic anemia, Seizure disorder, PAOD s/p BL iliac stenting and BL femoral endarterectomies w/ L femoral external composite graft w/ eventual LLE AKA, Hx AAA s/p endovascular stenting, Carotid disease s/p BL CEA, Tobacco use who presents to the [facility] ED on 10/07/21 with history of onset abdominal pain, diffusely over the last day with nausea and emesis with reported history of acute constipation x1 week with limited bowel movements with no recent fever or chills although reports poor intake noted to present to the ED with significant hypotension and bradycardia although improved following resuscitation.? Patient reports her abdominal pain is aching, cramping and stabbing in nature intermittently, notes severity is moderate.? She reported initially prior to fentanyl administration in the ED pain 8 out of 10 in severity, currently notes it is significantly improved and if people would leave her alone she could sleep, 1-2 out of 10 in severity.? In the ED she did have bowel movements and they were initially small kevin and then did have onset of some loose stools following.? Work-up in the ED included T97.6, heart rate initially 43 however most recent repeat 88, BP initially 68/30 however following IV fluid resuscitation most recent repeat blood pressure 123/95, respiratory rate 14, 97% on 3 L nasal cannula, CBC with WC 14.1, hemoglobin 10.3, platelets 321 with left shift, CMP with sodium 131, glucose 113, lactic acid 0.4, calcium 8, alk phos 122, lipase 177, amylase 227 otherwise Paddock profile not marked appearing, troponin 6, urinalysis with specific remedy 1.010, protein 30, ketone 5, occult blood 10, negative nitrite, leukocyte Estrace 25, no urine bacteria, CT abdomen and pelvis with acute infectious inflammatory colitis involving the descending colon, sigmoid diverticulosis with no acute diverticulitis, EKG with sinus bradycardia with first-degree AV block with no acute evidence of ischemia.? In the ED patient ministered Zofran, fentanyl 25 mcg IV x3 doses, normal saline 1 L bolus. Hospital Course: 1.? Acute on chronic mesenteric ischemia/peripheral vascular disease with a history of AAA/history of CVA/tobacco abuse ? Infectious colitis work-up is negative however given the likelihood of chronic mesenteric ischemia she was maintained on Zosyn for 5 days total ? We will recommend that she follow-up with vascular surgery as well as gastroenterology as an outpatient ? Appreciate GIs assistance ? She does have a history of bilateral femoral endarterectomies as well as bilateral common and external iliac stents ? 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 We will continue with her aspirin and Plavix ? Given her vasculopathy, discussed tobacco cessation ? She is feeling better today, and she was able to have a little bit of a bowel movement. We will plan on discharging her today on a few days of pain medications as well as a bowel regimen. I discussed the plan for discharge today and she expressed understanding of the risk benefits of going home and would like to go home today. I do recommend she follow-up with her PCP in 1 week 2.? Acute hypoxic respiratory failure secondary to flash pulmonary edema/COPD ? She is now down to 3 L nasal cannula which is her baseline home O2 ? IV fluids are discontinued secondary to volume overload ? Echo with an EF of 75% and RVSP of 53 mmHg.? Possible small PFO versus ASD 3.? DM2 ? Stable ? Continue sliding scale insulin ? Accu-Cheks AC at bedtime ? We will make adjustments as necessary 4.? HTN/HLD ? Will continue with her Lipitor and can restart her home pressure medication ? We will continue to monitor blood pressures 5.? GERD ? Stable ? Can with PPI Physical Exam Narrative General: Alert, Oriented x3, Cooperative, No apparent distress HEENT: Atraumatic, PERRLA, EOMI, Normocephalic Oral: Moist Mucosa Neck: Supple, No JVD Lungs: Diminished, Normal air movement, No rhonchi, No wheeze, No rales Cardiovascular: Regular rate, Regular Rhythm, Normal S1, Normal S2, No murmurs Abdomen: Soft, mildly tender, Non-Distended, No Hepato-splenomegaly Extremities: No edema, Capillary Refill Less than 3 Seconds Skin: No rashes, No breakdown Musculoskeletal: No Tenderness to Palpation of Joints or Extremities Neurological: Cranial nerves II-XII grossly intact, Motor Exam 5/5 strength throughout, Sensory exam intact to light touch and pain Psych/Mental Status: Normal Affect, Appropriate Weight / BMI Weight Weight: 138 lb 7.205 oz Body Mass Index (BMI) 28.8 ABG / Lab / Microbiology Data Result Diagrams: 10/10/21 04:05 10/10/21 04:05 Laboratory: Laboratory Results - last 24 hr 10/11/21 16:12: POC Glucose 86 10/11/21 22:44: POC Glucose 91 10/12/21 06:05: POC Glucose 99 Microbiology: Microbiology 10/07/21 05:11 Stool Enteric Bacteriology - Final 10/07/21 05:11 Stool C. difficile DNA Amplification - Final D/C Instructions Discharge Diet: Low fat / Low cholesterol Call your doctor if you observe: Fever of 101 or Higher, Shortness of breath, Dizziness, Fainting spells, Swelling in the ankles, Chest pain and Increased palpitations (irregular heartbeat) Meaningful Use Info Meaningful Use Diagnoses (Choose all that apply): None applicable Discharge Plan Admission Admit Date/Time: 10/07/21 03:08 Attending Provider: Marcelino Leahy Primary Care Provider: Irasema Jonas Consulting Providers: Noemí Graham ; Stacy Arnold ; Noah Allen Discharge Orders/Prescriptions Prescriptions: New polyethylene glycol 3350 17 gram Powder In Packet 17 g PO BID Qty: 60 0RF sennosides-docusate sodium [Stool Softener-Stimulant Laxat] 8.6-50 mg Tablet 1 tab PO DAILY Qty: 30 0RF oxycodone 5 mg Tablet 5 mg PO Q4H PRN PRN (Reason: Pain Score 4-5) 3 Days Qty: 10 0RF Continued losartan 100 mg tablet 100 mg PO DAILY gabapentin 600 MG tablet 800 mg PO TIDCM ipratropium-albuterol 3 ML solution for nebulization 3 ml inhalation Q6HWA.RT albuterol sulfate 1 PUFF inhaler 2 puff inhalation Q6H PRN PRN (Reason: Sob &/Or Wheezing) metoprolol tartrate 50 mg tablet 50 mg PO TID budesonide 0.5 MG/2 ML suspension for nebulization 0.5 mg inhalation BID amlodipine 2.5 MG tablet 2.5 mg PO DAILY albuterol sulfate 2.5 MG/3 ML solution for nebulization 2.5 mg inhalation Q2H PRN PRN (Reason: DYSPNEA) 0RF acetaminophen 500 MG tablet 1,000 mg PO Q6H PRN PRN (Reason: Pain Score 1-3/10) 0RF ondansetron 4 MG tablet 4 mg PO Q8H PRN PRN (Reason: NAUSEA) Qty: 21 0RF aspirin 81 MG tablet,chewable 81 mg PO BID Qty: 20 0RF promethazine 25 MG tablet 25 mg PO Q6H PRN PRN (Reason: Nausea) pantoprazole 40 MG tablet 40 mg PO DAILY mirtazapine 30 MG tablet 30 mg PO QHS atorvastatin 20 MG tablet 20 mg PO QHS clopidogrel 75 MG tablet 75 mg PO DAILY Referrals / Follow Up: Irasema Jonas MD [Primary Care Provider] - Within 1 Week Noah Allen MD [Med Staff - Active Staff] - Within 1 Month Joel Ann DO [Med Staff - Active Staff] - Within 2 Weeks Care Physician,No Primary [Non-Staff] - Disposition Disposition (needs filled in before D/C Order can be placed): Home Health Service Charges/Coding Visit Charges Inpatient E&M: 19895 Disch Hosp
[2021-10-12 11:56] LABS: Bedside Glucose 96 mg/dL (74-106)
--- NOTE | 2021-10-12 14:32 | CASEMGMT ---
YASMIN faxed d/c orders to Daniel at [facility]. Carolyn RUIZ
== END 2021-10-12 13:35 | disposition home or self-care (01) | DRG 393 ==
LOC: ED 10-07 03:00 → PCU 10-07 03:20
PROVIDERS: Internal Medicine; Admitting Provider Family Medicine; Emergency Provider Emergency Medicine; PCP Internal Medicine; Visit Provider Family Medicine
DX: K55.059 Acute (reversible) ischemia of intestine, part and extent unspecified (principal); J81.0 Acute pulmonary edema; J96.21 Acute and chronic respiratory failure with hypoxia; E87.1 Hypo-osmolality and hyponatremia; I50.32 Chronic diastolic (congestive) heart failure; D69.6 Thrombocytopenia, unspecified; E86.1 Hypovolemia; E11.42 Type 2 diabetes mellitus with diabetic polyneuropathy; E11.51 Type 2 diabetes mellitus with diabetic peripheral angiopathy without gangrene; I95.9 Hypotension, unspecified; I11.0 Hypertensive heart disease with heart failure; Z89.612 Acquired absence of left leg above knee; I71.4 Abdominal aortic aneurysm, without rupture; J44.9 Chronic obstructive pulmonary disease, unspecified; G40.909 Epilepsy, unspecified, not intractable, without status epilepticus; D64.9 Anemia, unspecified; E78.5 Hyperlipidemia, unspecified; K21.9 Gastro-esophageal reflux disease without esophagitis; I25.2 Old myocardial infarction; F17.210 Nicotine dependence, cigarettes, uncomplicated; I44.0 Atrioventricular block, first degree; I25.10 Atherosclerotic heart disease of native coronary artery without angina pectoris; I65.23 Occlusion and stenosis of bilateral carotid arteries; F41.9 Anxiety disorder, unspecified; Z86.73 Personal history of transient ischemic attack (TIA), and cerebral infarction without residual deficits; Z79.899 Other long term (current) drug therapy; Z79.82 Long term (current) use of aspirin; Z79.02 Long term (current) use of antithrombotics/antiplatelets; M81.0 Age-related osteoporosis without current pathological fracture; Z90.49 Acquired absence of other specified parts of digestive tract; Z95.828 Presence of other vascular implants and grafts; Z87.19 Personal history of other diseases of the digestive system; Z66 Do not resuscitate
CPT/HCPCS: 36415; 36600; 71045; 74174; 74177; 80048; 80053; 81001; 82150; 82803; 82962; 83036; 83605; 83690; 83735; 83880; 84100; 84145; 84484; 85025; 87493; 87506; 93005; 93306; 93880; 93923; 94002; 94003; 94640; 94762; 97161; 97166; 99285; 99406; J7030; J7050; Q9957; Q9967; A4216; C8929; J1940; J2405

== ENCOUNTER 2022-01-24 10:55 | Inpatient (IN) | payer MEDICARE, MEDICAID, SELFPAY ==
[2022-01-24] VITALS (18 sets, daily range): BP systolic 111–167; BP diastolic 69–155; PULSE 59–195; RESP 14–30; TEMP 36.1–36.9; O2SAT 4–100; BMI 28.7; BMI 26.6
--- NOTE | 2022-01-24 11:01 | EKG12_ITS ---
Test Reason : HIGH HR Blood Pressure : / mmHG Vent. Rate : 190 BPM Atrial Rate : 182 BPM P-R Int : 000 ms QRS Dur : 078 ms QT Int : 264 ms P-R-T Axes : 000 042 198 degrees QTc Int : 469 ms Poor data quality, interpretation may be adversely affected Undetermined rhythm : Consider Atrial Fibrillation with RVR Inferior infarct , age undetermined Nonspecific ST and T wave abnormality Abnormal ECG Confirmed by RAJI GARCIA, GINA ([id number]), continuity editor LEATHA GONZALEZ ([id number]) on 01/27/2022 7:45:37 AM Referred By: RORO Confirmed By:GINA ALEGRIA MD
--- NOTE | 2022-01-24 11:20 | EDS_ITS ---
HPI History of Present Illness Chief Complaint: Palpitations Informant: patient Onset/Context/Timing Onset: Days Context: Gradual Onset Timing: Waxes and wanes Quality: Tightness, racing Location: Chest Worsened by: Nothing Relieved by: Nothing Narrative Narrative: Patient presents with palpitations that have been getting worse over the past few days. Patient states she feels tightness in her chest. Patient also feels her heart racing. Patient admits to some shortness of breath with this. Patient states she has also been having some nausea, vomiting, and diarrhea over the past few days. Patient admits to subjective fevers and chills. Patient denies any cough. Patient denies any melena or hematochezia. Patient denies any chest pain. Patient admits to a mild headache. EMS attempted vagal maneuvers without success. [facility] Medical History (Updated 01/24/22 @ 15:[address] Noah Martinez, DO) Abdominal pain Acute kidney injury Anemia Appetite loss Atherosclerosis of [place] artery of left lower extremity Cerebrovascular disease Chronic diastolic (congestive) heart failure Chronic hypoxemic respiratory failure Chronic ulcer of left foot with fat layer exposed Closed left hip fracture COPD (chronic obstructive pulmonary disease) COPD (chronic obstructive pulmonary disease) Debility Diabetes Diabetic polyneuropathy Elevated troponin Essential (primary) hypertension Foot ulcer, left Fracture of fifth toe, left, closed GERD (gastroesophageal reflux disease) Hammer toe of left foot History of CVA (cerebrovascular accident) History of non-ST elevation myocardial infarction (NSTEMI) (05/29/19) Hyperlipidemia Hyponatremia Insomnia Left humeral fracture Neuropathic pain Nicotine dependence Osteoporosis Other specified peripheral vascular diseases Peripheral arterial occlusive disease Seizure disorder Seizure disorder Shortness of breath Thrombocytopenia Tobacco user Type 2 diabetes mellitus with diabetic polyneuropathy Vertebral compression fracture Home Medications albuterol sulfate 90 mcg/actuation aerosol inhaler 2 puff inhalation Q6H PRN PRN Sob &/Or Wheezing 04/05/17 [History Last Taken Unknown] gabapentin 600 mg tablet 800 mg PO TIDCM PAIN 04/05/17 [History Last Taken 01/22/20] budesonide 0.5 mg/2 mL suspension for nebulization 0.5 mg inhalation BID COPD 08/21/17 [History Last Taken 01/29/20] metoprolol tartrate 50 mg tablet 50 mg PO TID HEART/BP 10/18/17 [History Last Taken 12/18/20 08:30] amlodipine 2.5 mg tablet 2.5 mg PO DAILY bp 05/29/19 [History Last Taken 01/22/20] albuterol sulfate 2.5 mg/3 mL (0.083 %) solution for nebulization 2.5 mg (3 mL) inhalation Q2H PRN PRN DYSPNEA 06/01/19 [Rx Last Taken Unknown] acetaminophen 500 mg tablet 1,000 mg PO Q6H PRN PRN Pain Score 1-3/10 06/16/19 [Rx Last Taken Unknown] aspirin 81 mg chewable tablet 81 mg PO BID heart ##20 06/16/19 [Rx Last Taken 01/22/20] ondansetron 4 mg disintegrating tablet 4 mg PO Q8H PRN PRN NAUSEA #21 tabs 06/16/19 [Rx Last Taken Unknown] losartan 100 mg tablet 100 mg PO DAILY bp 06/23/19 [History Last Taken 01/22/20] atorvastatin 20 mg tablet 20 mg PO QHS cholesterol 01/29/20 [History Last Taken 01/22/20] clopidogrel 75 mg tablet 75 mg PO DAILY antiplatelet 01/29/20 [History Last Taken 01/22/20] pantoprazole 40 mg tablet,delayed release 40 mg PO DAILY GERD 01/29/20 [History Last Taken 01/22/20] promethazine 25 mg tablet 25 mg PO Q6H PRN PRN Nausea 01/29/20 [History Last Taken Unknown] fluticasone fur. 100 mcg-umeclid 62.5 mcg-vilant 25 mcg inhalat.powder (Trelegy Ellipta) 1 inh inhalation DAILY copd 01/24/22 [History Last Taken 1 Week Ago ~01/17/22] polyethylene glycol 3350 17 gram oral powder packet 17 g PO BID stool 01/24/22 [History Last Taken 1 Week Ago ~01/17/22] sennosides 8.6 mg-docusate sodium 50 mg tablet (Stool Softener-Stimulant Laxative) 1 tab PO DAILY BM 01/24/22 [History Last Taken 1 Week Ago ~01/17/22] Allergy/AdvReac Type Severity Reaction Status Date / Time pregabalin [From Lyrica] Allergy Rash Verified 01/24/22 11:01 duloxetine [From Cymbalta] AdvReac Vomiting Verified 01/24/22 11:01 sertraline HCl [From Zoloft] AdvReac MAKES ME Verified 01/24/22 11:01 CRAZY Family History Mother CVA (cerebral vascular accident) Surgical History abdominal aorta endovascular stent graft bilateral femoral endarterectomy bilateral iliac stenting History of above knee amputation (08/28/17) History of appendectomy History of bilateral carotid endarterectomy History of cholecystectomy (2019) History of hemiarthroplasty of left hip (05/29/19) History of hysterectomy Social History household members: none Smoking Status: Former smoker quit date: 02/11/13 pack-years: 45 Smokeless tobacco user: other alcohol intake: never substance use type: does not use caffeine: Yes Type: coffee Number of servings: 1 ROS ROS ED Constitutional Constitutional ED: Reports chills, fever(s) and subjective Eyes Eyes: Denies blurry vision or change in vision ENT ENT ED: Denies rhinorrhea or sore throat Cardiovascular Cardiovascular: Reports palpitations and racing heartbeat; Denies chest pain Respiratory/Chest Respiratory/Chest: Reports dyspnea; Denies cough Gastrointestinal Gastrointestinal: Reports diarrhea, nausea and vomiting; Denies melena Genitourinary Genitourinary ED: Denies dysuria or hematuria Musculoskeletal Musculoskeletal: Reports back pain and neck pain Integumentary Denies abscess or rash Neurologic Neurologic: Reports headache(s); Denies weakness Allergic/Immunologic Allergic/Immunologic ED: Denies mouth swelling or urticaria EXAM Physical Exam Const Vital Signs: 01/24/22 10:56 01/24/22 11:02 01/24/22 11:56 Temperature 98.5 F Temperature Source Oral Pulse Rate 195 H 126 H Respiratory Rate 29 H 21 H Respiratory Effort Short of Breath Labored Accessory Muscle Use Pursed Lip Head Bobbing Respiratory Pattern Blood Pressure 167/155 H 128/98 H Blood Pressure Mean 159 108 Blood Pressure Source Pulse Ox 4 98 Oxygen Delivery Method Nasal Cannula Nasal Cannula Oxygen Flow Rate (L/min) 4 01/24/22 12:05 01/24/22 11:30 Temperature Temperature Source Pulse Rate 139 H 110 H Respiratory Rate 18 30 H Respiratory Effort Respiratory Pattern Hyperpnea Blood Pressure 138/127 H Blood Pressure Mean 130 Blood Pressure Source Monitor Pulse Ox 96 Oxygen Delivery Method Nasal Cannula Oxygen Flow Rate (L/min) 4 Positive well nourished and well developed General Appearance ED: well developed and NAD HEENT Reports moist mucous membranes Neck supple and no JVD Resp normal respiratory effort Auscultation: wheezes expiratory wheezes and throughout Cardio regular rhythm Rate: tachycardic GI normal to inspection, nondistended, normoactive bowel sounds and non-tender Palpation: soft Extremity normal to inspection Extremity Narrative: There is a an [id number] amputation of the left lower extremity. General Extremety ED: Negative for edema or tenderness General Extremity: Negative for edema Neuro oriented x3, CN's II-XII intact bilaterally and no sensory deficits noted Sensorium / Orientation: alert Motor Exam: strength 5/5 throughout Psych mental status grossly normal Skin no rashes or lesions noted MDM MDM MDM Narrative Medical decision making narrative: Patient was given IV fluids. Patient was given 6 mg of adenosine initially. Patient's heart rate slowed down but I was unable to determine the underlying rhythm. Patient reverted back to SVT in the 170s. Patient was given a dose of 12 mg of adenosine. Patient's heart rate slowed down again and it appeared to have some P waves noted. However, the patient reverted back to SVT in the 170s. Patient was given a bolus of Cardizem. Patient started on a Cardizem drip. Initial EKG showed supraventricular tachycardia with a rate of 190. QRS interval was normal. QTc interval was normal. [place] was normal. There were nonspecific ST-T wave changes related to the rate. Repeat EKG shows atrial fibrillation with a rate of 120. QRS interval was normal, QTC intervals normal, axis was normal. There is nonspecific ST-T wave changes. Portable 1 view chest x-ray was obtained. On my interpretation, lung [place] are clear. There is normal cardiac silhouette. Bony thorax is normal. There is no acute process noted. Radiologist also interpreted the x-ray and agrees. CBC shows a mild leukocytosis of 12.3. There is a mild anemia with a hemoglobin of 11.9 and hematocrit 35.9. Pro time with INR was within normal limits. Urinalysis was within normal limits. Initial high-sensitivity troponin was slightly elevated at 77. Comprehensive metabolic profile was otherwise within normal limits. Case was discussed with the hospitalist. He will admit the patient to his service. Patient understood and was agreeable with the plan. All questions were answered. Lab Data Attestation: I reviewed the patient's lab results. Labs: Laboratory Results - last 24 hr 01/24/22 01/24/22 01/24/22 11:48 12:20 13:25 WBC 12.3 H RBC 4.29 Hgb 11.9 L Hct 35.9 L MCV 83.7 MCH 27.7 MCHC 33.1 RDW Std Deviation 46.5 H RDW Coeff of Reina 15.2 H Plt Count 169 MPV 9.3 Immature Gran % (Auto) 0.500 Neut % (Auto) 79.6 H Lymph % (Auto) 10.9 L [place] % (Auto) 8.7 Eos % (Auto) 0.1 Baso % (Auto) 0.2 Absolute Neuts (auto) 9.8 H Absolute Lymphs (auto) 1.34 Nucleated RBC % 0 PT 12.3 INR 0.9 APTT 27.8 Urine Color Yellow Urine Clarity Clear Urine pH 6.0 Ur Specific [place] 1.020 Urine Protein 500 H Urine Glucose (UA) Normal Urine Ketones 50 H Urine Occult Blood 25 H Urine Nitrite Negative Urine Bilirubin Negative Urine Urobilinogen 4 H Ur Leukocyte Esterase 25 H Urine RBC 0 SEEN Urine WBC 0-5 SEEN Ur Squamous Epith Cells 0 SEEN Urine Bacteria 4+ Urine Mucus 0 SEEN Radiography Chest X-Ray - ED: 1 View, Read by ED Physician, Read by Radiologist and No Acute Disease Diagnostic Testing: Clinical Impression(s) from Imaging Studies Chest X-Ray 01/24/22 11:34 IMPRESSION: Hyperexpanded lungs without a superimposed acute pulmonary process, no interval change Electronically Signed: Osorio Qureshi MD at 11:52 EST , EKG Initial EKG: Attestation: I personally reviewed and interpreted this EKG as follows: Interpretation: SVT (190) and Non-Specific ST Changes Prior EKG tracings: available for review Prior: Unchanged (10/10/2021) Follow-up EKG: Interpretation: Atrial Fibrillation (120) and Non-Specific ST Changes Prior EKG tracings: available for review Prior: Unchanged Critical Care Time Critical Care Time: Yes Critical care time (excluding procedures): 30-74 minutes (33), Including time spent:, Discussing w/Patient &/or Family/Crystal Grinder, Discussing w/Consultants, Arranging Admission or Transfer and Performing Direct Patient Care at Bedside Discharge Plan Triage Chief Complaint: Palpitations ED Provider: Noah Martinez Dx/Rx/DC Orders Clinical Impression: Atrial fibrillation with rapid ventricular response, Dyspnea, Elevated troponin Prescriptions: No Action losartan 100 mg tablet 100 mg PO DAILY gabapentin 600 MG tablet 800 mg PO TIDCM albuterol sulfate 1 PUFF inhaler 2 puff inhalation Q6H PRN PRN (Reason: Sob &/Or Wheezing) metoprolol tartrate 50 mg tablet 50 mg PO TID budesonide 0.5 MG/2 ML suspension for nebulization 0.5 mg inhalation BID amlodipine 2.5 MG tablet 2.5 mg PO DAILY albuterol sulfate 2.5 MG/3 ML solution for nebulization 2.5 mg inhalation Q2H PRN PRN (Reason: DYSPNEA) 0RF acetaminophen 500 MG tablet 1,000 mg PO Q6H PRN PRN (Reason: Pain Score 1-3/10) 0RF ondansetron 4 MG tablet 4 mg PO Q8H PRN PRN (Reason: NAUSEA) Qty: 21 0RF aspirin 81 MG tablet,chewable 81 mg PO BID Qty: 20 0RF promethazine 25 MG tablet 25 mg PO Q6H PRN PRN (Reason: Nausea) pantoprazole 40 MG tablet 40 mg PO DAILY atorvastatin 20 MG tablet 20 mg PO QHS clopidogrel 75 MG tablet 75 mg PO DAILY Trelegy Ellipta 100-62.5-25 mcg blister with device 1 inh INHALATION DAILY Label Comments: inhale 1 puff by mouth and INTO THE LUNGS once daily sennosides-docusate sodium [Stool Softener-Stimulant Laxat] 8.6-50 mg tablet 1 tab PO DAILY polyethylene glycol 3350 17 gram powder in packet 17 g PO BID Primary Care Provider: Irasema Jonas Referrals: Irasema Jonas MD [Primary Care Provider] - Disposition Disposition: Acute Care Hospital [facility]
[2022-01-24] MEDS: Adenosine 6 MG/2 ML Syringe IV ×2 (11:24→11:26)
[2022-01-24] MEDS: dilTIAZem 25 MG/5 ML Vial IV BOLUS (11:24)
--- NOTE | 2022-01-24 11:24 | EKG12_ITS ---
Test Reason : CHANGE IN HR Blood Pressure : / mmHG Vent. Rate : 120 BPM Atrial Rate : 000 BPM P-R Int : 000 ms QRS Dur : 074 ms QT Int : 286 ms P-R-T Axes : 000 054 068 degrees QTc Int : 404 ms Atrial fibrillation with rapid ventricular response Nonspecific ST and T wave abnormality Abnormal ECG Confirmed by KRISTINA GARCIA, MARIO ([id number]), editor house organ LEATHA GONZALEZ ([id number]) on 01/26/2022 10:39:16 AM Referred By: APRIL Confirmed By:ROXANNE ACEVEDO MD
[2022-01-24] MEDS: Ipratropium/Albuterol Sulfate 3 ML AMPUL.NEB INHALATION ×3 (11:29→23:30)
--- NOTE | 2022-01-24 11:34 | RAD_ITS ---
STUDY: X-RAY CHEST REASON FOR EXAM: Female, 71 years old. Worsening shortness of breath TECHNIQUE: Single AP portable view of the chest. COMPARISON: 10/08/2021 FINDINGS: EKG leads overlie the chest Lungs are hyperexpanded with chronic interstitial changes but no superimposed acute pulmonary process. Stable blunting of the left costophrenic angle, likely chronic as it is unchanged from 07/01/2019 Normal size heart. Normal mediastinum and rhea. Normal visualized pulmonary arteries. Normal visualized aortic arch and descending thoracic aorta. There are diffuse degenerative changes of the visualized thoracic spine. Old healed rib fractures. There is no demonstrated abnormality of the visualized soft tissue structures of the upper abdomen. RAD/Chest 1 View (Portable) IMPRESSION: Hyperexpanded lungs without a superimposed acute pulmonary process, no interval change Electronically Signed: Osorio Qureshi MD at 11:52 EST ,
--- NOTE | 2022-01-24 11:36 | ED.RN ---
PTS DAUGHTER CALLED PER PT REQUEST TO LET HER KNOW ABOUT PT STATUS. DTR STATES WE CAN CALL HER AT ANY TIME.
[2022-01-24 12:06] LABS: Absolute Lymphocyte Count 1.34 X10^3/uL (0.83-4.51); Absolute Neutrophil Count 9.8 X10^3/uL (2.0-7.7); Basophil# 0.02 X10^3/uL; Basophil% 0.2 % (0-1); Eosinophil# 0.01 X10^3/uL; Eosinophils% 0.1 % (0-5); Hematocrit 35.9 % (37-47); Hemoglobin 11.9 g/dL (12.0-15.0); Lymphocyte # 1.34 X10^3/ul (0.83-4.51); Lymphocyte % 10.9 % (19-41); Mean Corp Hgb Conc 33.1 g/dL (32-36); Mean Corpuscular Hgb 27.7 pg (27.0-32.0); Mean Corpuscular Volume 83.7 fL (81-99); Mean Platelet Vol. 9.3 fl (6.2-12.0); Monocyte# 1.07 X10^3/uL; Monocyte% 8.7 % (0-10); NRBC Flagged by Analyzer 0 % (0-5); Neutrophil # 9.75 X10^3/uL (2.7-7.7); Neutrophil % 79.6 % (47-70); Platelet Count 169 K/mm3 (150-450); RBC Distribution Width CV 15.2 % (11.6-14.6); RBC Distribution Width SD 46.5 fl (35.1-43.9); Red Blood Count 4.29 M/mm3 (4.2-5.4); White Blood Count 12.3 K/mm3 (4.4-11.0)
[2022-01-24 12:28] LABS: Mucous, Urine 0 SEEN /hpf (<or=2+); Red Blood Cells-Urine 0 SEEN /hpf (0-5); Squamous Epithelial Cells - UA 0 SEEN /hpf (5-10)
[2022-01-24 12:37] LABS: Color, Urine Yellow (Yellow); Glucose, Dipstick Normal (Normal); Ketone-Dipstick 50 mg/dl (Negative); Leukocyte Esterase-Dipstick 25 /ul (Negative); Nitrite-Dipstick Negative (Negative); Occult Blood-Urine 25 /ul (Negative); Protein-Dipstick 500 mg/dl (Negative); Urine Bilirubin Dipstick Negative (Negative); Urine Clarity Clear (Clear); Urine Urobilinogen 4 mg/dl (Normal)
[2022-01-24 12:51] LABS: Bacteria 4+ /hpf (None Seen)
[2022-01-24 12:52] LABS: White Blood Cells 0-5 SEEN /hpf (0-5)
[2022-01-24 13:42] LABS: International Normalized Ratio 0.9; Partial Thromboplast Time 27.8 Seconds (24.1-36.2); Prothrombin Time (Protime)PT. 12.3 SECONDS (11.7-14.9)
[2022-01-24 14:01] LABS: Lactic Acid 1.3 mmol/L (0.4-1.9)
--- NOTE | 2022-01-24 14:02 | HP.PCM.HOS_ITS ---
[facility] - General General Date of Admission: 01/24/22 Date of Service: 01/24/22 Chief Complaint: Has been sick for about 1 week with nausea vomiting, abdominal pain. Last 2 days getting palpitation, found in SVT and A. fib with RVR in ED HPI Narrative MEME JOHNSON, is a 71 F with history of peripheral arterial disease, chronic mesenteric ischemia with history of AAA repair with graft came to ED for generalized weakness, abdominal pain, nausea, vomiting, shortness of breath and chest discomfort for about 1 week. She states she has been throwing 5-6 times initially in the first 3 to 4 days of the week but she is empty stomach and cannot eat or drink but he still feels nauseated and throwing up. She also has runny bowel movement, diarrhea, loose consistency with brown-colored stool. Complaint of dizziness lightheadedness. For last 2 days she feels palpitation. EMS found her heart rate was 72 bpm, pulse ox 88% on 4 L of oxygen. She is chronically on home oxygen 4 L. Her chest discomfort has relieved. Glucose was found 126 . In ED, patient heart rate was found to be 195 respirate, respiratory rate 29, short of breath and labored breathing, using accessory muscles. Subsequently patient was put on Cardizem drip after Cardizem bolus. EMS EKG shows narrow complex tachycardia probably SVT 173., Nonspecific ST-T abnormalities. In the ED first EKG at 11 AM shows similar SVT [address] depression V3 to V6. Subsequent EKG at 1130 shows A. fib with RVR, clinically appears normal, QTC 443 seconds [facility] Medical History (Updated 01/24/22 @ 15:[address] Noah Martinez, ) Abdominal pain Acute kidney injury Anemia Appetite loss Atherosclerosis of [place] artery of left lower extremity Cerebrovascular disease Chronic diastolic (congestive) heart failure Chronic hypoxemic respiratory failure Chronic ulcer of left foot with fat layer exposed Closed left hip fracture COPD (chronic obstructive pulmonary disease) COPD (chronic obstructive pulmonary disease) Debility Diabetes Diabetic polyneuropathy Elevated troponin Essential (primary) hypertension Foot ulcer, left Fracture of fifth toe, left, closed GERD (gastroesophageal reflux disease) Hammer toe of left foot History of CVA (cerebrovascular accident) History of non-ST elevation myocardial infarction (NSTEMI) (05/29/19) Hyperlipidemia Hyponatremia Insomnia Left humeral fracture Neuropathic pain Nicotine dependence Osteoporosis Other specified peripheral vascular diseases Peripheral arterial occlusive disease Seizure disorder Seizure disorder Shortness of breath Thrombocytopenia Tobacco user Type 2 diabetes mellitus with diabetic polyneuropathy Vertebral compression fracture Home Medications albuterol sulfate 90 mcg/actuation aerosol inhaler 2 puff inhalation Q6H PRN PRN Sob &/Or Wheezing 04/05/17 [History Last Taken Unknown] gabapentin 600 mg tablet 800 mg PO TIDCM PAIN 04/05/17 [History Last Taken 1 Week Ago ~01/17/22] budesonide 0.5 mg/2 mL suspension for nebulization 0.5 mg inhalation BID COPD 08/21/17 [History Last Taken 01/23/22] metoprolol tartrate 50 mg tablet 50 mg PO TID HEART/BP 10/18/17 [History Last Taken 1 Week Ago ~01/17/22] amlodipine 2.5 mg tablet 2.5 mg PO DAILY bp 05/29/19 [History Last Taken 1 Week Ago ~01/17/22] albuterol sulfate 2.5 mg/3 mL (0.083 %) solution for nebulization 2.5 mg (3 mL) inhalation Q2H PRN PRN DYSPNEA 06/01/19 [Rx Last Taken 01/24/22] acetaminophen 500 mg tablet 1,000 mg PO Q6H PRN PRN Pain Score 1-3/10 06/16/19 [Rx Last Taken 01/23/22] aspirin 81 mg chewable tablet 81 mg PO BID heart ##20 06/16/19 [Rx Last Taken 2 Days Ago ~01/22/22] ondansetron 4 mg disintegrating tablet 4 mg PO Q8H PRN PRN NAUSEA #21 tabs 06/16/19 [Rx Last Taken 1 Week Ago ~01/17/22] losartan 100 mg tablet 100 mg PO DAILY bp 06/23/19 [History Last Taken 1 Week Ago ~01/17/22] atorvastatin 20 mg tablet 20 mg PO QHS cholesterol 01/29/20 [History Last Taken 1 Week Ago ~01/17/22] clopidogrel 75 mg tablet 75 mg PO DAILY antiplatelet 01/29/20 [History Last Taken 1 Week Ago ~01/17/22] pantoprazole 40 mg tablet,delayed release 40 mg PO DAILY GERD 01/29/20 [History Last Taken 1 Week Ago ~01/17/22] promethazine 25 mg tablet 25 mg PO Q6H PRN PRN Nausea 01/29/20 [History Last Taken 01/23/22] fluticasone fur. 100 mcg-umeclid 62.5 mcg-vilant 25 mcg inhalat.powder (Trelegy Ellipta) 1 inh inhalation DAILY copd 01/24/22 [History Last Taken 1 Week Ago ~01/17/22] polyethylene glycol 3350 17 gram oral powder packet 17 g PO BID stool 01/24/22 [History Last Taken 1 Week Ago ~01/17/22] sennosides 8.6 mg-docusate sodium 50 mg tablet (Stool Softener-Stimulant Laxative) 1 tab PO DAILY BM 01/24/22 [History Last Taken 1 Week Ago ~01/17/22] Allergy/AdvReac Type Severity Reaction Status Date / Time pregabalin [From Lyrica] Allergy Rash Verified 01/24/22 11:01 duloxetine [From Cymbalta] AdvReac Vomiting Verified 01/24/22 11:01 sertraline HCl [From Zoloft] AdvReac MAKES ME Verified 01/24/22 11:01 CRAZY Family History Mother CVA (cerebral vascular accident) Surgical History abdominal aorta endovascular stent graft bilateral femoral endarterectomy bilateral iliac stenting History of above knee amputation (08/28/17) History of appendectomy History of bilateral carotid endarterectomy History of cholecystectomy (2019) History of hemiarthroplasty of left hip (05/29/19) History of hysterectomy Social History household members: none Smoking Status: Former smoker quit date: 02/11/13 pack-years: 45 Smokeless tobacco user: other alcohol intake: never substance use type: does not use caffeine: Yes Type: coffee Number of servings: 1 ROS ROS Narrative 14 system ROS is not complete as patient is in distress due to shortness of breath/respiratory distress, tachycardia and feeling sick. Constitutional: Reports fatigue and weakness, short of breath feeling sick HEENT: Reports systems reviewed and no addt'l complaints, except as documented Respiratory/Chest: As described. Gastrointestinal: Denies hematemesis or melena. Stated brown stool Genitourinary: Dark yellow urine, decreasing urine amount. Denies burning urination or new urinary tract symptoms Musculoskeletal: Left above-knee amputation. Mobilizes on wheelchair reports joint pain and limited range of motion Neurologic: Denies seizure-like activity. History of a stroke skin: No ulcer. No rash Endocrinology: Reports systems reviewed and no addt'l complaints, except as documented Hematologic/Lymphatic: Reports systems reviewed and no addt'l complaints, except as documented Rest 14 ROS are negative except as mentioned in HPI Vital Signs Vital Signs Vital Signs: 01/24/22 10:56 01/24/22 11:02 01/24/22 11:56 Temperature 98.5 F Temperature Source Oral Pulse Rate 195 H 126 H Respiratory Rate 29 H 21 H Respiratory Effort Short of Breath Labored Accessory Muscle Use Pursed Lip Head Bobbing Respiratory Pattern Blood Pressure 167/155 H 128/98 H Blood Pressure Mean 159 108 Blood Pressure Source Pulse Ox 4 98 Oxygen Delivery Method Nasal Cannula Nasal Cannula Oxygen Flow Rate (L/min) 4 01/24/22 12:05 01/24/22 11:30 01/24/22 12:00 Temperature Temperature Source Pulse Rate 139 H 110 H 123 H Respiratory Rate 18 30 H 22 H Respiratory Effort Respiratory Pattern Hyperpnea Blood Pressure 138/127 H 138/127 H Blood Pressure Mean 130 130 Blood Pressure Source Monitor Pulse Ox 96 96 Oxygen Delivery Method Nasal Cannula Nasal Cannula Oxygen Flow Rate (L/min) 4 4 01/24/22 13:00 Temperature Temperature Source Pulse Rate 135 H Respiratory Rate 14 Respiratory Effort Respiratory Pattern Blood Pressure 133/69 H Blood Pressure Mean 90 Blood Pressure Source Pulse Ox 98 Oxygen Delivery Method Nasal Cannula Oxygen Flow Rate (L/min) 4 Weight Weight: 133 lb 2.547 oz Body Mass Index (BMI) 28.7 Physical Exam Narrative Physical exam General: Awake, crawling position, no respiratory distress. Oriented x3. HEENT: Atraumatic, PERRLA, EOMI, Normocephalic Oral: Oral mucosa dry. No Gingival or Mucosal Lesions/ Ulcerations Neck: Supple, No JVD, Negative Carotid Bruits Lungs: Air entry diminished in bilateral lung bases. Tachypnea, hypoxia. No crepitation/rhonchi Cardiovascular: Narrow complex tachycardia, Normal S1, Normal S2, No murmurs Abdomen: Soft, nondistended. Midline abdominal scar. Generalized tenderness present, no guarding/rigidity. Bowel Sounds sluggish. : No renal angle tenderness. No suprapubic tenderness. Extremities: No edema, Capillary Refill Less than 3 Seconds Skin: No rashes, No breakdown Musculoskeletal: No Tenderness to Palpation of Joints or Extremities Neurological: Cranial nerves II-XII grossly intact, DTR 2+/4 and Symmetrical, Neuro grossly intact Psych/Mental Status: Ill-appearing, distress. Results Lab / Micro Data Result Diagrams: 01/24/22 11:48 01/24/22 13:25 Labs: Laboratory Results - last 24 hr 01/24/22 11:48: WBC 12.3 H, RBC 4.29, Hgb 11.9 L, Hct 35.9 L, MCV 83.7, MCH 27.7, MCHC 33.1, RDW Std Deviation 46.5 H, RDW Coeff of [place] 15.2 H, Plt Count 169, MPV 9.3, Immature Gran % (Auto) 0.500, Neut % (Auto) 79.6 H, Lymph % (Auto) 10.9 L, [place] % (Auto) 8.7, Eos % (Auto) 0.1, Baso % (Auto) 0.2, Absolute Neuts (auto) 9.8 H, Absolute Lymphs (auto) 1.34, Nucleated RBC % 0 01/24/22 12:20: Urine Color Yellow, Urine Clarity Clear, Urine pH 6.0, Ur Specific [place] 1.020, Urine Protein 500 H, Urine Glucose (UA) Normal, Urine Ketones 50 H, Urine Occult Blood 25 H, Urine Nitrite Negative, Urine Bilirubin Negative, Urine Urobilinogen 4 H, Ur Leukocyte Esterase 25 H, Urine RBC 0 SEEN, Urine WBC 0-5 SEEN, Ur Squamous Epith Cells 0 SEEN, Urine Bacteria 4+, Urine Mucus 0 SEEN 01/24/22 13:25: PT 12.3, INR 0.9, APTT 27.8 01/24/22 13:25: Lactic Acid 1.3 Micro: Microbiology 01/24/22 11:30 Nasal Secretion SARS-CoV-2 & FLU Antigen (Rapid) - Final Radiology Impression Chest X-Ray 01/24/22 11:34 IMPRESSION: Hyperexpanded lungs without a superimposed acute pulmonary process, no interval change Electronically Signed: Osorio Qureshi MD at 11:52 EST , Assessment & Plan Assessment/Plan (1) Atrial fibrillation with rapid ventricular response: PLAN: Plan This is a 71-year-old female multiple comorbidities were admitted with narrow complex tachycardia along with abdominal pain. 1. Narrow complex tachycardia, started with SVT and then A. fib with RVR: Patient is being admitted in PCU. EKG shows SVT A. fib with RVR with ST depr ession in V3 to V6. Serial troponin enzymes ordered. Last echo in September 2021 reported EF 75% hyperdynamic LV, LA mildly depressed. Small PFO stenosis ASD on saline contrast study. Patient is on Cardizem drip at 10 mg/h. Metoprolol 5 mg IV as needed every 6 hourly ordered for heart rate more than 120/min. Started on Lovenox 1 milligram per KG body weight. Patient had chest pressure at home which is resolved. Potassium 3.5, low normal. Serum magnesium and phosphorus level normal. Try to keep potassium, around 4 and magnesium around 2.0 mg/dL 2.? Chronic hypoxic respiratory failure: Although patient patient in mild respiratory distress tachypnea as by EMS in ED, oxygen requirement is 4 L at home. 3.? DM type II: Accu-Chek H&H's and cover with Candor sliding scale. Glucose is 160 4.? Acute on chronic abdominal pain with history of chronic mesenteric ischemia, peripheral arterial disease, history of AAA status post graft, CVA and ex- smoker: Patient was last admitted in September 2021 for abdominal pain. At that time patient was seen by singer back tender and vascular surgeon. 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 As per vascular surgery note, her grafts were patent. She also history of bilateral femoral endarterectomy, bilateral common and external iliac stents. She quit smoking in February 2013. Patient is on aspirin. Hold Plavix as patient is started on Lovenox therapeutic dose Continue Lipitor. 5.? GERD on PPI. 6. DVT high risk: On therapeutic dose of Lovenox Living will/advanced directive/end of life care: Patient does not have living will or advanced directive. Daughter is next to kin. After discussion of benefits/risks procedures involved with full code, DNR CC arrest and DNR CC, the patient opted for DNR CC arrest. Patient clearly stated when and time calls, let me know. She does not want resuscitation Patient doesn't want artificial life support including intubation, tube feed, ventilator and/chest compression, central venous catheter, vasopressor and DC shock if needed Total time spent in [id number] encounter in discussion of advanced directive 16 minutes. Microbiology Past 72 Hours 01/24/22 11:30 Nasal Secretion SARS-CoV-2 & FLU Antigen (Rapid) - Final Laboratory Results 01/24/22 11:48: WBC 12.3 H, RBC 4.29, Hgb 11.9 L, Hct 35.9 L, MCV 83.7, MCH 27.7, MCHC 33.1, RDW Std Deviation 46.5 H, RDW Coeff of Reina 15.2 H, Plt Count 169, MPV 9.3, Immature Gran % (Auto) 0.500, Neut % (Auto) 79.6 H, Lymph % (Auto) 10.9 L, [place] % (Auto) 8.7, Eos % (Auto) 0.1, Baso % (Auto) 0.2, Absolute Neuts (auto) 9.8 H, Absolute Lymphs (auto) 1.34, Nucleated RBC % 0 01/24/22 12:20: Urine Color Yellow, Urine Clarity Clear, Urine pH 6.0, Ur Specific [place] 1.020, Urine Protein 500 H, Urine Glucose (UA) Normal, Urine Ketones 50 H, Urine Occult Blood 25 H, Urine Nitrite Negative, Urine Bilirubin Negative, Urine Urobilinogen 4 H, Ur Leukocyte Esterase 25 H, Urine RBC 0 SEEN, Urine WBC 0-5 SEEN, Ur Squamous Epith Cells 0 SEEN, Urine Bacteria 4+, Urine Mucus 0 SEEN 01/24/22 13:25: PT 12.3, INR 0.9, APTT 27.8 01/24/22 13:25: Sodium 120 L, Potassium 3.5, Chloride 82 L, Carbon Dioxide 27.0, Anion Gap 11, BUN 13, Creatinine 0.59, Estim Creat Clear Calc 50.63, Est GFR (MDRD) Af Amer 130, Est GFR (MDRD) Non-Af 107, BUN/Creatinine Ratio 22.0 H, Glucose 160 H, Calcium 8.4 L, Total Bilirubin 0.50, AST 31, ALT 30, Alkaline Phosphatase 98, Troponin I High Sens 77 H, Total Protein 8.5 H, Albumin 3.4, Globulin 5.1 H, Albumin/Globulin Ratio 0.7 L 01/24/22 13:25: Lactic Acid 1.3 01/24/22 13:25: Phosphorus 3.0, Magnesium 1.7 2D echo Sep 2021 Left ventricular systolic function is hyperdynamic. The estimated ejection fraction is 75 %. The left atrium is mildly enlarged. Trivial mitral valve insufficiency. Trivial tricuspid valve insufficiency. Right ventricular systolic pressure estimated to be 53 mmHg. Diastolic function is indeterminate. Agitated saline contrast study faintly positive for right to left interatrial sh unt potentially compatible with a small PFO versus ASD. Late peaking spectral Doppler pattern near the left ventricular outflow track approaching 2 m/s (peak gradient 16 mmHg) appearing compatible with a hyperdynamic state. Charges/Coding Visit Charges Inpatient E&M: 90959 Init Hosp Procedures Hospitalists Procedures: 98006 Advncd Care Plan 30 Min
[2022-01-24 14:04] LABS: ALB/GLOB Ratio 0.7 RATIO (0.9-2.4); AST(SGOT) 31 U/L (15-37); Alanine Aminotransfer ALT/SGPT 30 U/L (13-56); Albumin, Serum 3.4 g/dL (3.2-5.0); Alkaline Phosphatase 98 U/L (45-117); Anion Gap 11 (5-15); BUN 13 mg/dL (7-18); Calcium,Total 8.4 mg/dL (8.5-10.1); Chloride 82 mmol/L (98-107); Creatinine, Serum 0.59 mg/dL (0.55-1.02); EST Glomerular Filtration Rate 107 mL/min (>60); Est Glom Filt Rate - Afr Amer 130 mL/min (>60); Estimated Creatinine Clearance 50.63 ml/min; Globulin 5.1 g/dL (2.2-4.2); Glucose 160 mg/dL (74-106); Potassium 3.5 mmol/L (3.5-5.1); Protein, Total 8.5 g/dL (6.4-8.2); Sodium Level 120 mmol/L (136-145); Troponin-I HS (w/2H Reflex) 77 pg/mL (3.0-54.0)
[2022-01-24 14:31] LABS: Magnesium 1.7 mg/dL (1.6-2.6)
[2022-01-24] MEDS: Metoprolol Tartrate 50 MG Tablet 75 MG PO (15:10)
[2022-01-24] MEDS: Pantoprazole Sodium 40 MG Tablet PO (15:10)
[2022-01-24 15:31] LABS: Reflex Troponin-HS? (from REC) Y
[2022-01-24 16:50] LABS: Troponin-I HS 28 pg/mL (3.0-54.0)
[2022-01-24] MEDS: 0.9% Normal Saline 1,000 ML 100 ML IV (17:38)
[2022-01-24] MEDS: Potassium Chloride Oral Tablet 20 MEQ 40 MEQ PO (18:05)
[2022-01-24] MEDS: Enoxaparin 60 MG/0.6 ML Syringe SC (18:05)
[2022-01-24] MEDS: Ondansetron ODT 4 MG Tablet PO (18:57)
--- NOTE | 2022-01-24 19:00 | EKG12_ITS ---
Test Reason : RHYTHM CHANGE Blood Pressure : / mmHG Vent. Rate : 067 BPM Atrial Rate : 067 BPM P-R Int : 252 ms QRS Dur : 088 ms QT Int : 406 ms P-R-T Axes : 084 048 058 degrees QTc Int : 429 ms Sinus rhythm with 1st degree A-V block Early repolarization Otherwise normal ECG When compared with ECG of 24-JAN-2022 11:21, MANUAL COMPARISON REQUIRED, DATA IS UNCONFIRMED Confirmed by KRISTINA GARCIA, MARIO ([id number]), medical editor LEATHA GONZALEZ ([id number]) on 01/26/2022 10:51:25 AM Referred By: SAI Confirmed By:ROXANNE ACEVEDO MD
[2022-01-24] MEDS: Budesonide Respules 0.5 MG/2 ML AMPUL.NEB. INHALATION (19:18)
--- NOTE | 2022-01-24 20:53 | US_ITS ---
ACR Level 3 findings have been noted. An addendum which confirms receipt of the report will follow. STUDY: ABDOMINAL ULTRASOUND - RIGHT UPPER QUADRANT REASON FOR VISIT: Female, 71 years old RUQ pain TECHNIQUE: Ultrasound evaluation of the right upper quadrant was performed with real-time and static mohamud-scale imaging. TECHNICAL QUALITY: Adequate. COMPARISON: None. FINDINGS: Liver: The liver measures 14.1 cm. There is a heterogeneous echogenicity of the liver. The bile ducts are within normal limits. There is hepatic color flow. The direction of portal flow is hepatopetal. There is no demonstrated mass lesion. Gallbladder: The patient is status post cholecystectomy. Common Bile Duct (C.B.D.): The common bile duct measures 3 mm. Pancreas: Normal size of the head, body and tail of the pancreas. There is normal echogenicity of the pancreas. There is no demonstrated pancreatic mass or cyst. Right Kidney: Normal size of the right kidney. The right kidney measures 8.1 cm. Normal renal cortex. The right cortex measures 0.4 cm. There is 2.5 cm hypoechoic mass at the upper pole. There is no right hydronephrosis. US/Liver IMPRESSION: Mass at the upper pole the right kidney suggesting neoplasm. CT scan recommended for further evaluation. Electronically Signed: Jaydon Santoyo MD at 22:49 EST ,
[2022-01-24] MEDS: Metoprolol Tartrate 25 MG Tablet 75 MG PO (22:08)
[2022-01-24] MEDS: Aspirin 81 MG TAB.CHEW PO (22:09)
[2022-01-25] VITALS (39 sets, daily range): BP systolic 89–183; BP diastolic 43–151; PULSE 68–94; RESP 12–40; TEMP 35.7–37.4; O2SAT 88–100
--- NOTE | 2022-01-25 | RAD_ITS ---
STUDY: X-RAY CHEST REASON FOR EXAM: Female, 71 years old. Shortness of breath. TECHNIQUE: Single AP portable view of the chest. COMPARISON: January 24, 2022. October 08, 2021. July 01, 2019. CT abdomen and pelvis October 08, 2021. FINDINGS: No focal infiltrates or effusions. No pneumothorax. Blunting of the costophrenic angles compatible with pleural scar unchanged. There is mild cardiac enlargement. Normal mediastinum and rhea. Normal visualized pulmonary arteries. Atherosclerotic calcification of the aortic arch. Normal visualized thoracic spine. Old right upper posterior rib fractures. There is no demonstrated abnormality of the visualized soft tissue structures of the upper abdomen. RAD/Chest 1 View (Portable) IMPRESSION: Stable mild cardiomegaly. No acute cardiopulmonary disease. Electronically Signed: Aman Gomes MD at 2:47 EST Reading Location ID and State: [id number] / , Service support ,
--- NOTE | 2022-01-25 01:50 | PCM.HOSP.N ---
Hospitalist Note Called regarding RUQ pain and separately SOB. RUQ US with mass at upper pole in R kidney concerning for neoplasm, may need CT scan for further characterization in AM. For SOB went to [facility], she reports when she got up and used the potty chair she was significantly SOB, now sitting back in bed continued SOB but it is the same as it was on admission and not worse at this time. Scattered wheezes, did increase nebs to q4, xray ordered
[2022-01-25] MEDS: proMETHazine 25 MG Tablet PO ×2 (02:54→09:46)
[2022-01-25] MEDS: hydrOXYzine 10 MG Tablet PO (04:18)
[2022-01-25] MEDS: Ondansetron ODT 4 MG Tablet PO ×2 (04:35→13:38)
[2022-01-25] MEDS: Ipratropium/Albuterol Sulfate 3 ML AMPUL.NEB INHALATION ×5 (04:39→22:52)
[2022-01-25] MEDS: 0.9% Saline Lock 10 ML Syringe IV ×2 (04:53→05:09)
[2022-01-25] MEDS: Ondansetron 4 MG/2 ML Vial IV (04:54)
[2022-01-25 05:00] LABS: Allen Test Positive; Base Excess 0 mmol/L (-2 to +2); Bicarbonate 30.9 mmol/L (22-26); Blood Gas Specimen Type ART; O2 Delivery Device Cannula; PO2 86 mmHG (75-100); SITE R Radial; SO2 88 % (95-99); Total Carbon Dioxide 35 mmol/L; pCO2 120.4 mmHg (35-45); pH 7.02 (7.35-7.45)
[2022-01-25 05:31] LABS: Absolute Neutrophil Count 5.8 X10^3/uL (2.0-7.7); Basophil# 0.01 X10^3/uL; Basophil% 0.1 % (0-1); Hematocrit 32.5 % (37-47); Hemoglobin 10.3 g/dL (12.0-15.0); Lymphocyte % 25.1 % (19-41); Mean Corp Hgb Conc 31.7 g/dL (32-36); Mean Corpuscular Hgb 27.6 pg (27.0-32.0); Mean Corpuscular Volume 87.1 fL (81-99); Mean Platelet Vol. 9.6 fl (6.2-12.0); Monocyte# 1.03 X10^3/uL; Monocyte% 11.3 % (0-10); NRBC Flagged by Analyzer 0 % (0-5); Neutrophil # 5.76 X10^3/uL (2.7-7.7); Platelet Count 195 K/mm3 (150-450); RBC Distribution Width CV 15.6 % (11.6-14.6); RBC Distribution Width SD 49.4 fl (35.1-43.9); Red Blood Count 3.73 M/mm3 (4.2-5.4); White Blood Count 9.2 K/mm3 (4.4-11.0)
--- NOTE | 2022-01-25 05:35 | CPS ---
Pt taken off bipap as she was feeling nauseous. Zofran was given by ELIJAH
--- NOTE | 2022-01-25 05:50 | NURSING ---
this RN noticed pt lips being cyanotic, pt tachypneic and c/o still feeling nauseous, capillary refill <3secs, 02 sats was 96% on 3L NC. LS wheezy. Notified MD to eval pt, also called RT for another breathing tx. MD came at bedside, additional labs order, new orders were placed. Pt now on bipap and on cont pulse ox.
[2022-01-25 06:04] LABS: Lactic Acid 0.7 mmol/L (0.4-1.9)
[2022-01-25 06:17] LABS: ALB/GLOB Ratio 0.7 RATIO (0.9-2.4); AST(SGOT) 32 U/L (15-37); Alanine Aminotransfer ALT/SGPT 33 U/L (13-56); Albumin, Serum 3.3 g/dL (3.2-5.0); Alkaline Phosphatase 92 U/L (45-117); Anion Gap 7 (5-15); BUN 20 mg/dL (7-18); BUN/Creat Ratio 24.4 RATIO (10-20); Calcium,Total 7.9 mg/dL (8.5-10.1); Chloride 85 mmol/L (98-107); Cholesterol 161 mg/dL (200); Creatinine, Serum 0.82 mg/dL (0.55-1.02); EST Glomerular Filtration Rate 74 mL/min (>60); Est Glom Filt Rate - Afr Amer 89 mL/min (>60); Estimated Creatinine Clearance 57.45 ml/min; Globulin 4.8 g/dL (2.2-4.2); Glucose 200 mg/dL (74-106); High Density Lipoprotein 63 mg/dL; Potassium 5.1 mmol/L (3.5-5.1); Protein, Total 8.1 g/dL (6.4-8.2); Sodium Level 120 mmol/L (136-145); Thyroid Stim Hormone (TSH) 0.33 uIU/mL (0.358-3.74); Triglycerides 101 mg/dL; Very Low Density Lipoprotein 20 mg/dL (5-40)
[2022-01-25] MEDS: Pantoprazole Sodium 40 MG Tablet PO (08:16)
[2022-01-25] MEDS: Losartan Potassium 100 MG Tablet 50 MG PO (08:16)
[2022-01-25] MEDS: Aspirin 81 MG TAB.CHEW PO (08:16)
[2022-01-25] MEDS: Metoprolol Tartrate 25 MG Tablet 75 MG PO ×2 (08:18→13:37)
[2022-01-25] MEDS: Enoxaparin 60 MG/0.6 ML Syringe SC (08:18)
[2022-01-25 08:30] LABS: T4 Free Direct 1.36 ng/dL (0.76-1.46)
[2022-01-25 10:40] LABS: Allen Test Positive; Base Excess 2 mmol/L (-2 to +2); Bicarbonate 29.8 mmol/L (22-26); Blood Gas Specimen Type ART; Comment 24/12; FI02 50; Mode BiLevel; O2 Delivery Device BiPAP; PEEP 10; PO2 126 mmHG (75-100); RR 14; SITE R Radial; SO2 98 % (95-99); Total Carbon Dioxide 32 mmol/L; Vt 450; pCO2 76.2 mmHg (35-45)
[2022-01-25] MEDS: 0.9% Normal Saline 1,000 ML 100 ML IV (10:53)
[2022-01-25] MEDS: Doxycycline 100 MG CAPSULE PO (10:53)
--- NOTE | 2022-01-25 12:21 | PCM.CONS.R ---
Assessment & Plan Assessment/Plan (1) Hyponatremia: (2) Essential (primary) hypertension: (3) COPD (chronic obstructive pulmonary disease): QUALIFIERS: COPD type: unspecified COPD Qualified Code(s): J44.9 - Chronic obstructive pulmonary disease, unspecified (4) Atrial fibrillation with rapid ventricular response: PLAN: Plan Impression/Plan: The patient is a 71-year-old woman with past history of type 2 diabetes mellitus, hypertension, PAD with known mesenteric ischemia and abdominal aortic aneurysm status post endovascular graft, COPD, stroke, hyperlipidemia, and GERD. The patient is admitted to the hospital on 01/24/2022 with a 3 to 4 weeks history of anorexia, nausea, vomiting and generalized weakness. She has been diagnosed with COPD exacerbation along with atrial fibrillation with RVR. Nephrology is asked to see the patient because of hyponatremia. Hyponatremia. The patient has had prior history of transient hyponatremia although last available serum sodium prior to this admission from 10/10/2021 was 136 mmol/L. Suspect hyponatremia is hypotonic hyponatremia from volume/solute depletion due to poor oral intake and nausea/vomiting. Agree with volume and solute repletion with IV normal saline. Since the patient is hemodynamically stable, we can limit hypotonic fluid intake to 1.2 L/day. Encourage solute intake (protein) although this may be difficult because she is on BiPAP. We will check urine sodium, urine potassium and urine osmolality. Would recommend checking sodium serially every 6 hours for the next 24 hours. There is no need for hypertonic saline at this point. However, if there is change in mental status or if there is worsening serum sodium, we will reevaluate. Hypokalemia. The patient is on potassium chloride supplement. Surprisingly, her potassium level was normal on presentation despite poor oral intake and vomiting. Therefore, I would continue to monitor serum potassium along with sodium. Hypertension. The patient is on losartan. BP is reasonably controlled. Recommend avoiding thiazide diuretic. Nephrology plan will be discussed with Dr. Trujillo. HPI Consult Data Date of Consult: 01/25/22 HPI Narrative Reason for Consultation: PAOLO. HPI Narrative: The patient is a 71-year-old woman with past history of type 2 diabetes mellitus, hypertension, PAD with known mesenteric ischemia and abdominal aortic aneurysm status post endovascular graft, COPD, stroke, hyperlipidemia, and GERD. The patient presented to the hospital on 01/24/2022 with 1 week history of generalized weakness, abdominal pain, nausea, vomiting, and dyspnea. The patient reports vomiting 5-6 times per day for 3 to 4 days prior to admission. The patient was also found to have tachyarrhythmia on presentation. She has been diagnosed with atrial fibrillation with RVR. Nephrology is asked to see the patient because of hyponatremia. The patient presented with serum sodium of 120 mmol/L on 01/24/2022. Last available serum sodium was from 10/10/2021 at 136 mmol/L. The patient is on BiPAP, so review of system was difficult to obtain. However, she denies headache. At present, nausea has improved. She is not confused. There has been no orthopnea or PND. There has been no edema of the lower extremities. The patient has COPD and uses home oxygen prior to admission. She was not on thiazide diuretic, SSRI or NSAIDs prior to admission. [facility] Medical History (Updated 01/24/22 @ 15:[address] Noah Martinez, DO) Abdominal pain Acute kidney injury Anemia Appetite loss Atherosclerosis of [place] artery of left lower extremity Cerebrovascular disease Chronic diastolic (congestive) heart failure Chronic hypoxemic respiratory failure Chronic ulcer of left foot with fat layer exposed Closed left hip fracture COPD (chronic obstructive pulmonary disease) COPD (chronic obstructive pulmonary disease) Debility Diabetes Diabetic polyneuropathy Elevated troponin Essential (primary) hypertension Foot ulcer, left Fracture of fifth toe, left, closed GERD (gastroesophageal reflux disease) Hammer toe of left foot History of CVA (cerebrovascular accident) History of non-ST elevation myocardial infarction (NSTEMI) (05/29/19) Hyperlipidemia Hyponatremia Insomnia Left humeral fracture Neuropathic pain Nicotine dependence Osteoporosis Other specified peripheral vascular diseases Peripheral arterial occlusive disease Seizure disorder Seizure disorder Shortness of breath Thrombocytopenia Tobacco user Type 2 diabetes mellitus with diabetic polyneuropathy Vertebral compression fracture Home Medications albuterol sulfate 90 mcg/actuation aerosol inhaler 2 puff inhalation Q6H PRN PRN Sob &/Or Wheezing 04/05/17 [History Last Taken Unknown] gabapentin 600 mg tablet 800 mg PO TIDCM PAIN 04/05/17 [History Last Taken 1 Week Ago ~01/17/22] budesonide 0.5 mg/2 mL suspension for nebulization 0.5 mg inhalation BID COPD 08/21/17 [History Last Taken 01/23/22] metoprolol tartrate 50 mg tablet 50 mg PO TID HEART/BP 10/18/17 [History Last Taken 1 Week Ago ~01/17/22] amlodipine 2.5 mg tablet 2.5 mg PO DAILY bp 05/29/19 [History Last Taken 1 Week Ago ~01/17/22] albuterol sulfate 2.5 mg/3 mL (0.083 %) solution for nebulization 2.5 mg (3 mL) inhalation Q2H PRN PRN DYSPNEA 06/01/19 [Rx Last Taken 01/24/22] acetaminophen 500 mg tablet 1,000 mg PO Q6H PRN PRN Pain Score 1-3/10 06/16/19 [Rx Last Taken 01/23/22] aspirin 81 mg chewable tablet 81 mg PO BID heart ##20 06/16/19 [Rx Last Taken 2 Days Ago ~01/22/22] ondansetron 4 mg disintegrating tablet 4 mg PO Q8H PRN PRN NAUSEA #21 tabs 06/16/19 [Rx Last Taken 1 Week Ago ~01/17/22] losartan 100 mg tablet 100 mg PO DAILY bp 06/23/19 [History Last Taken 1 Week Ago ~01/17/22] atorvastatin 20 mg tablet 20 mg PO QHS cholesterol 01/29/20 [History Last Taken 1 Week Ago ~01/17/22] clopidogrel 75 mg tablet 75 mg PO DAILY antiplatelet 01/29/20 [History Last Taken 1 Week Ago ~01/17/22] pantoprazole 40 mg tablet,delayed release 40 mg PO DAILY GERD 01/29/20 [History Last Taken 1 Week Ago ~01/17/22] promethazine 25 mg tablet 25 mg PO Q6H PRN PRN Nausea 01/29/20 [History Last Taken 01/23/22] fluticasone fur. 100 mcg-umeclid 62.5 mcg-vilant 25 mcg inhalat.powder (Trelegy Ellipta) 1 inh inhalation DAILY copd 01/24/22 [History Last Taken 1 Week Ago ~01/17/22] polyethylene glycol 3350 17 gram oral powder packet 17 g PO BID stool 01/24/22 [History Last Taken 1 Week Ago ~01/17/22] sennosides 8.6 mg-docusate sodium 50 mg tablet (Stool Softener-Stimulant Laxative) 1 tab PO DAILY BM 01/24/22 [History Last Taken 1 Week Ago ~01/17/22] Allergy/AdvReac Type Severity Reaction Status Date / Time pregabalin [From Lyrica] Allergy Rash Verified 01/24/22 11:01 duloxetine [From Cymbalta] AdvReac Vomiting Verified 01/24/22 11:01 sertraline HCl [From Zoloft] AdvReac MAKES ME Verified 01/24/22 11:01 CRAZY Family History Mother CVA (cerebral vascular accident) Surgical History abdominal aorta endovascular stent graft bilateral femoral endarterectomy bilateral iliac stenting History of above knee amputation (08/28/17) History of appendectomy History of bilateral carotid endarterectomy History of cholecystectomy (2019) History of hemiarthroplasty of left hip (05/29/19) History of hysterectomy Social History household members: none Smoking Status: Former smoker quit date: 02/11/13 pack-years: 45 Smokeless tobacco user: other alcohol intake: never substance use type: does not use caffeine: Yes Type: coffee Number of servings: 1 ROS ROS Narrative 11/20 ROS was done. They are otherwise noncontributory to what is already documented in HPI. Physical Exam Narrative General: Alert and oriented x3. In some respiratory distress. HEENT: Normocephalic, atraumatic, mucous membrane moist. She is on BiPAP. PERRLA, EOMI. Hearing is intact. Neck: Supple, no JVD. Cardiovascular: Irregularly irregular S1, S2. There is no rubs, murmurs or gallops. Lungs: Chest is barreled. Coarse breath sound bilaterally. Abdomen: Normal bowel sound, soft, nontender. Extremities: Status post left AKA. There is no edema of the right lower extremity. Musculoskeletal: The patient is kyphotic. There is no joint swelling. Skin: Warm and dry, no rash. Neurologic: Cranial nerves II through XII are grossly intact. No focal neurologic deficits. Lab / Micro Data Result Diagrams: 01/25/22 04:15 01/25/22 04:15 Labs: Laboratory Results - last 24 hr 01/24/22 12:20: Urine Color Yellow, Urine Clarity Clear, Urine pH 6.0, Ur Specific [place] 1.020, Urine Protein 500 H, Urine Glucose (UA) Normal, Urine Ketones 50 H, Urine Occult Blood 25 H, Urine Nitrite Negative, Urine Bilirubin Negative, Urine Urobilinogen 4 H, Ur Leukocyte Esterase 25 H, Urine RBC 0 SEEN, Urine WBC 0-5 SEEN, Ur Squamous Epith Cells 0 SEEN, Urine Bacteria 4+, Urine Mucus 0 SEEN 01/24/22 13:25: PT 12.3, INR 0.9, APTT 27.8 01/24/22 13:25: Sodium 120 L, Potassium 3.5, Chloride 82 L, Carbon Dioxide 27.0, Anion Gap 11, BUN 13, Creatinine 0.59, Estim Creat Clear Calc 50.63, Est GFR (MDRD) Af Amer 130, Est GFR (MDRD) Non-Af 107, BUN/Creatinine Ratio 22.0 H, Glucose 160 H, Calcium 8.4 L, Total Bilirubin 0.50, AST 31, ALT 30, Alkaline Phosphatase 98, Troponin I High Sens 77 H, Total Protein 8.5 H, Albumin 3.4, Globulin 5.1 H, Albumin/Globulin Ratio 0.7 L 01/24/22 13:25: Lactic Acid 1.3 01/24/22 13:25: Phosphorus 3.0, Magnesium 1.7 01/24/22 16:09: Troponin I High Sens 28 01/25/22 04:15: WBC 9.2, RBC 3.73 L, Hgb 10.3 L, Hct 32.5 L, MCV 87.1, MCH 27.6, MCHC 31.7 L, RDW Std Deviation 49.4 H, RDW Coeff of Reina 15.6 H, Plt Count 195, MPV 9.6, Immature Gran % (Auto) 0.500, Neut % (Auto) 63.0, Lymph % (Auto) 25.1, [place] % (Auto) 11.3 H, Eos % (Auto) 0.0, Baso % (Auto) 0.1, Absolute Neuts (auto) 5.8, Absolute Lymphs (auto) 2.30, Nucleated RBC % 0 01/25/22 04:15: Sodium 120 L, Potassium 5.1, Chloride 85 L, Carbon Dioxide 28.0, Anion Gap 7, BUN 20 H, Creatinine 0.82, Estim Creat Clear Calc 57.45, Est GFR (MDRD) Af Amer 89, Est GFR (MDRD) Non-Af 74, BUN/Creatinine Ratio 24.4 H, Glucose 200 H, Calcium 7.9 L, Total Bilirubin 0.40, AST 32, ALT 33, Alkaline Phosphatase 92, Total Protein 8.1, Albumin 3.3, Globulin 4.8 H, Albumin/Globulin Ratio 0.7 L, Triglycerides 101, Cholesterol 161, LDL Cholesterol 78, VLDL Cholesterol 20, HDL Cholesterol 63, TSH 0.33 L 01/25/22 04:15: Cortisol 92.20 H 01/25/22 04:15: Free T4 1.36 01/25/22 05:25: Lactic Acid 0.7 01/25/22 08:55: COVID-19 (ROSANA) Not Detected Micro: Microbiology 01/24/22 11:30 Nasal Secretion SARS-CoV-2 & FLU Antigen (Rapid) - Final ABG Data ABG results: ABG 01/25/22 01/25/22 04:54 10:35 Specimen Type ART ART Sample Site R Radial R Radial pH 7.02 L* 7.20 L Bicarbonate Actual 30.9 H 29.8 H Total CO2 35 32 Base Excess 0 2 O2 Saturation 88 L 98 O2 % 50 ABG pCO2 120.4 H* 76.2 H* ABG pO2 86 126 H Oneil Test Positive Positive Respiration Rate 14 O2 Delivery Device Cannula BiPAP Liter Flow 4.0 Vent Mode BiLevel Tidal Volume 450 POC PEEP 10 Crit Call To/Read Back Yes Yes Blood Gas Notified Whom briana Clinical Comments 03/02 Radiology Impression Liver Ultrasound 01/24/22 20:53 IMPRESSION: Mass at the upper pole the right kidney suggesting neoplasm. CT scan recommended for further evaluation. Electronically Signed: Jaydon Santoyo MD at 22:49 EST , ADDENDUM: 01/24/22 0929 IMPRESSION: Mass at the upper pole the right kidney suggesting neoplasm. CT scan recommended for further evaluation. N.B. : Charge Nurse Mikayla Kumar RN, confirmed on 01/24/2022 23:04:44 (ET) that the healthcare facility has received the radiology report. Electronically Signed: Jaydon Santoyo MD at 22:49 EST , Chest X-Ray 01/25/22 00:00 IMPRESSION: Stable mild cardiomegaly. No acute cardiopulmonary disease. Electronically Signed: Aman Gomes MD at 2:47 EST Reading Location ID and State: [id number] / , Service support ,
--- NOTE | 2022-01-25 12:22 | CASEMGMT ---
RN CM NOTE: Pt currently on BIPAP. Initial RN CM assessment deferred at this time. Michael DOBSONN RN CM
--- NOTE | 2022-01-25 12:42 | PCM.PN.HOSP ---
Subjective Subjective Follow-up for acute on chronic combined respiratory failure, respiratory distress Seen and examined. Overnight event noticed Objective Data Objective Data Vital Signs: Vital Signs Temp Pulse Resp BP Pulse Ox O2 Del Method O2 Flow Rate 97.4 F L 85 20 H 144/127 H 91 Bi-pap 3 01/25/22 08:00 01/25/22 11:00 01/25/22 10:51 01/25/22 10:00 01/25/22 10:51 01/25/22 10:00 01/25/22 04:40 FiO2 50 01/25/22 10:51 Oxygen Flow Rate (L/min) 3 Oxygen Delivery Method Bi-pap Weight: 123 lb 14.397 oz Body Mass Index (BMI) 26.6 Intake & Output: Intake and Output for Last 24 Hours 01/23/22 01/24/22 01/25/22 23:59 23:59 23:59 Intake Total 953.92 / 953.92 1073.33 / 1073.33 Output Total 0 / 0 Balance 953.92 / 953.92 1073.33 / 1073.33 Lab / Micro Data Result Diagrams: 01/25/22 04:15 01/25/22 04:15 Labs: Laboratory Results - last 24 hr 01/24/22 12:20: Urine Color Yellow, Urine Clarity Clear, Urine pH 6.0, Ur Specific [place] 1.020, Urine Protein 500 H, Urine Glucose (UA) Normal, Urine Ketones 50 H, Urine Occult Blood 25 H, Urine Nitrite Negative, Urine Bilirubin Negative, Urine Urobilinogen 4 H, Ur Leukocyte Esterase 25 H, Urine RBC 0 SEEN, Urine WBC 0-5 SEEN, Ur Squamous Epith Cells 0 SEEN, Urine Bacteria 4+, Urine Mucus 0 SEEN 01/24/22 13:25: PT 12.3, INR 0.9, APTT 27.8 01/24/22 13:25: Sodium 120 L, Potassium 3.5, Chloride 82 L, Carbon Dioxide 27.0, Anion Gap 11, BUN 13, Creatinine 0.59, Estim Creat Clear Calc 50.63, Est GFR (MDRD) Af Amer 130, Est GFR (MDRD) Non-Af 107, BUN/Creatinine Ratio 22.0 H, Glucose 160 H, Calcium 8.4 L, Total Bilirubin 0.50, AST 31, ALT 30, Alkaline Phosphatase 98, Troponin I High Sens 77 H, Total Protein 8.5 H, Albumin 3.4, Globulin 5.1 H, Albumin/Globulin Ratio 0.7 L 01/24/22 13:25: Lactic Acid 1.3 01/24/22 13:25: Phosphorus 3.0, Magnesium 1.7 01/24/22 16:09: Troponin I High Sens 28 01/25/22 04:15: WBC 9.2, RBC 3.73 L, Hgb 10.3 L, Hct 32.5 L, MCV 87.1, MCH 27.6, MCHC 31.7 L, RDW Std Deviation 49.4 H, RDW Coeff of Reina 15.6 H, Plt Count 195, MPV 9.6, Immature Gran % (Auto) 0.500, Neut % (Auto) 63.0, Lymph % (Auto) 25.1, [place] % (Auto) 11.3 H, Eos % (Auto) 0.0, Baso % (Auto) 0.1, Absolute Neuts (auto) 5.8, Absolute Lymphs (auto) 2.30, Nucleated RBC % 0 01/25/22 04:15: Sodium 120 L, Potassium 5.1, Chloride 85 L, Carbon Dioxide 28.0, Anion Gap 7, BUN 20 H, Creatinine 0.82, Estim Creat Clear Calc 57.45, Est GFR (MDRD) Af Amer 89, Est GFR (MDRD) Non-Af 74, BUN/Creatinine Ratio 24.4 H, Glucose 200 H, Calcium 7.9 L, Total Bilirubin 0.40, AST 32, ALT 33, Alkaline Phosphatase 92, Total Protein 8.1, Albumin 3.3, Globulin 4.8 H, Albumin/Globulin Ratio 0.7 L, Triglycerides 101, Cholesterol 161, LDL Cholesterol 78, VLDL Cholesterol 20, HDL Cholesterol 63, TSH 0.33 L 01/25/22 04:15: Cortisol 92.20 H 01/25/22 04:15: Free T4 1.36 01/25/22 05:25: Lactic Acid 0.7 01/25/22 08:55: COVID-19 (ROSANA) Not Detected Micro: Microbiology 01/24/22 11:30 Nasal Secretion SARS-CoV-2 & FLU Antigen (Rapid) - Final ABG Data ABG results: ABG 01/25/22 01/25/22 04:54 10:35 Specimen Type ART ART Sample Site R Radial R Radial pH 7.02 L* 7.20 L Bicarbonate Actual 30.9 H 29.8 H Total CO2 35 32 Base Excess 0 2 O2 Saturation 88 L 98 O2 % 50 ABG pCO2 120.4 H* 76.2 H* ABG pO2 86 126 H Oneil Test Positive Positive Respiration Rate 14 O2 Delivery Device Cannula BiPAP Liter Flow 4.0 Vent Mode BiLevel Tidal Volume 450 POC PEEP 10 Crit Call To/Read Back Yes Yes Blood Gas Notified Whom briana Clinical Comments 03/02 Radiography Diagnostic Testing: Radiology Impression Liver Ultrasound 01/24/22 20:53 IMPRESSION: Mass at the upper pole the right kidney suggesting neoplasm. CT scan recommended for further evaluation. Electronically Signed: Jaydon Santoyo MD at 22:49 EST , ADDENDUM: 01/24/22 2311 IMPRESSION: Mass at the upper pole the right kidney suggesting neoplasm. CT scan recommended for further evaluation. N.B. : Charge Nurse Mikayla Kumar RN, confirmed on 01/24/2022 23:04:44 (ET) that the healthcare facility has received the radiology report. Electronically Signed: Jaydon Santoyo MD at 22:49 EST , Chest X-Ray 01/25/22 00:00 IMPRESSION: Stable mild cardiomegaly. No acute cardiopulmonary disease. Electronically Signed: Aman Gomes MD at 2:47 EST Reading Location ID and State: [id number] / , Service support , Physical Exam Narrative Overnight, patient became very short of breath. She also had right upper quadrant pain. ABG was done which shows pH 7.02, PCO2 120 and BiPAP was put on. Patient remains short of breath, sitting in tripod position. Not enough cough. General: Awake, sitting in position, respiratory distress, no respiratory distress. Oriented x3. HEENT: Atraumatic, PERRLA, EOMI, Normocephalic Oral: On BiPAP Neck: Supple, No JVD, Negative Carotid Bruits Lungs: Air entry severely diminished in bilateral lungs. Tachypnea, hypoxia. Expiratory rhonchi no crepitation/rhonchi Cardiovascular: Sinus rhythm, Normal S1, Normal S2, No murmurs Abdomen: Soft, nondistended. Midline abdominal scar. Generalized tenderness present, no guarding/rigidity. Bowel Sounds sluggish. : No renal angle tenderness. No suprapubic tenderness. Extremities: No edema, Capillary Refill Less than 3 Seconds Skin: No rashes, No breakdown Musculoskeletal: No Tenderness to Palpation of Joints or Extremities. Moderate atrophy of muscles of extremities. Left AKA Neurological: Cranial nerves II-XII grossly intact, DTR 2+/4 and Symmetrical, Neuro grossly intact Psych/Mental Status: Ill-appearing, distress. Assessment & Plan Assessment/Plan (1) Atrial fibrillation with rapid ventricular response: PLAN: Plan This is a 71-year-old female multiple comorbidities were admitted with narrow complex tachycardia along with abdominal pain. 1. Narrow complex tachycardia, started with SVT and then A. fib with RVR: Patient is being admitted in PCU. EKG shows SVT A. fib with RVR with ST depression in V3 to V6. Serial troponin enzymes ordered. Last echo in September 2021 reported EF 75% hyperdynamic LV, LA mildly depressed. Small PFO stenosis ASD on saline contrast study. Patient is on Cardizem drip at 10 mg/h. Metoprolol 5 mg IV as needed every 6 hourly ordered for heart rate more than 120/min. Started on Lovenox 1 milligram per KG body weight. Patient had chest pressure at home which is resolved. Potassium 3.5, low normal. Serum magnesium and phosphorus level normal. Try to keep potassium, around 4 and magnesium around 2.0 mg/dL 01/25: Narrow complex tachycardia resolved. Currently patient 85 bpm. 2.? Chronic hypoxic respiratory failure: Although patient patient in mild respiratory distress tachypnea as by EMS in ED, oxygen requirement is 4 L at home. 01/25: Acute on chronic combined hypoxic and hypercarbic respiratory failure after admission: Patient is chronic CO2 retainer. Previous ABG also showed PCO2 79.7 in May 2019. On central lab technician on 01/25, patient had respiratory distress with RUQ pain. ABG showed high respiratory acidosis with pH 7.02, PCO2 120 and patient was put on BiPAP. Repeat ABG done in the morning on AVAPS 50% FiO2, PEEP 10 shows pH 7.2 0/76/126. I discussed with grievance manager Dr. Benton and we agreed that patient is DNR CC arrest with no intubation and can be managed on NIPPV. Patient to continue on AVAPS and transition to Airvo on 18. Continue bronchodilator and IV Solu-Medrol. Patient also had nausea and could not had Zithromax therefore changed to doxycycline. Exact etiology is unclear. Repeat chest x-ray does not show acute cardiopulmonary abnormality. Respiratory panel pending. SARS-CoV-2 flu antigen negative. Urinary antigens and COVID-19 PCR. Empirically started on IV ceftriaxone. Hypotonic hypovolemic hyponatremia with CKD stage IIIa with diabetic nephropathy: Sodium is 120. Patient looks severely dehydrated. On IV fluid normal saline. Discussed with the solar electric installer. TSH low at 0.33 Free T4 1.36. Cortisol 92 high. Lipid profile within normal limit. Creatinine normal estimated creatinine clearance 57/min, But urine shows proteinuria which is chronic. 3.? DM type II: Accu-Chek H&H's and cover with [place] sliding scale. Glucose is 160 4.? Acute on chronic abdominal pain with history of chronic mesenteric ischemia, peripheral arterial disease, history of AAA status post graft, CVA and ex-smoker: Patient was last admitted in September 2021 for abdominal pain. At that time patient was seen by plumbing mechanic and vascular surgeon. 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 As per vascular surgery note, her grafts were patent. She also history of bilateral femoral endarterectomy, bilateral common and external iliac stents. She quit smoking in February 2013. Patient is on aspirin. Hold Plavix as patient is started on Lovenox therapeutic dose Continue Lipitor. 5.? GERD on PPI. 6. DVT high risk: On therapeutic dose of Lovenox Total time of the visit including total time spent in counseling or coordination of care, (more than 50% of the total time, spent in obtaining medical information from nurses and other ancillary care providers,explaining to the patient about labs, imaging, diagnosis and management of active complex medical conditions), discussion with consultants grievance manager and solar electric installer, respiratory therapist, review of labs and imaging is 50 minutes. Living will/advanced directive/end of life care: Patient does not have living will or advanced directive. Daughter is next to kin. After discussion of benefits/risks procedures involved with full code, DNR CC arrest and DNR CC, the patient opted for DNR CC arrest. Patient clearly stated when and time calls, let me know. She does not want resuscitation Patient doesn't want artificial life support including intubation, tube feed, ventilator and/chest compression, central venous catheter, vasopressor and DC shock if needed Microbiology Past 72 Hours 01/24/22 11:30 Nasal Secretion SARS-CoV-2 & FLU Antigen (Rapid) - Final Laboratory Results 01/24/22 12:20: Urine Color Yellow, Urine Clarity Clear, Urine pH 6.0, Ur Specific [place] 1.020, Urine Protein 500 H, Urine Glucose (UA) Normal, Urine Ketones 50 H, Urine Occult Blood 25 H, Urine Nitrite Negative, Urine Bilirubin Negative, Urine Urobilinogen 4 H, Ur Leukocyte Esterase 25 H, Urine RBC 0 SEEN, Urine WBC 0-5 SEEN, Ur Squamous Epith Cells 0 SEEN, Urine Bacteria 4+, Urine Mucus 0 SEEN 01/24/22 13:25: PT 12.3, INR 0.9, APTT 27.8 01/24/22 13:25: Sodium 120 L, Potassium 3.5, Chloride 82 L, Carbon Dioxide 27.0, Anion Gap 11, BUN 13, Creatinine 0.59, Estim Creat Clear Calc 50.63, Est GFR (MDRD) Af Amer 130, Est GFR (MDRD) Non-Af 107, BUN/Creatinine Ratio 22.0 H, Glucose 160 H, Calcium 8.4 L, Total Bilirubin 0.50, AST 31, ALT 30, Alkaline Phosphatase 98, Troponin I High Sens 77 H, Total Protein 8.5 H, Albumin 3.4, Globulin 5.1 H, Albumin/Globulin Ratio 0.7 L 01/24/22 13:25: Lactic Acid 1.3 01/24/22 13:25: Phosphorus 3.0, Magnesium 1.7 01/24/22 16:09: Troponin I High Sens 28 01/25/22 04:15: WBC 9.2, RBC 3.73 L, Hgb 10.3 L, Hct 32.5 L, MCV 87.1, MCH 27.6, MCHC 31.7 L, RDW Std Deviation 49.4 H, RDW Coeff of Reina 15.6 H, Plt Count 195, MPV 9.6, Immature Gran % (Auto) 0.500, Neut % (Auto) 63.0, Lymph % (Auto) 25.1, [place] % (Auto) 11.3 H, Eos % (Auto) 0.0, Baso % (Auto) 0.1, Absolute Neuts (auto) 5.8, Absolute Lymphs (auto) 2.30, Nucleated RBC % 0 01/25/22 04:15: Sodium 120 L, Potassium 5.1, Chloride 85 L, Carbon Dioxide 28.0, Anion Gap 7, BUN 20 H, Creatinine 0.82, Estim Creat Clear Calc 57.45, Est GFR (MDRD) Af Amer 89, Est GFR (MDRD) Non-Af 74, BUN/Creatinine Ratio 24.4 H, Glucose 200 H, Calcium 7.9 L, Total Bilirubin 0.40, AST 32, ALT 33, Alkaline Phosphatase 92, Total Protein 8.1, Albumin 3.3, Globulin 4.8 H, Albumin/Globulin Ratio 0.7 L, Triglycerides 101, Cholesterol 161, LDL Cholesterol 78, VLDL Cholesterol 20, HDL Cholesterol 63, TSH 0.33 L 01/25/22 04:15: Cortisol 92.20 H 01/25/22 04:15: Free T4 1.36 01/25/22 04:54: Specimen Type ART, Sample Site R Radial, pH 7.02 L*, Bicarbonate Actual 30.9 H, Total CO2 35, Base Excess 0, O2 Saturation 88 L, ABG pCO2 120.4 H*, ABG pO2 86, Oneil Test Positive, O2 Delivery Device Cannula, Liter Flow 4.0, Crit Call To/Read Back Yes 01/25/22 05:25: Lactic Acid 0.7 01/25/22 08:55: COVID-19 (ROSANA) Not Detected 01/25/22 10:35: Specimen Type ART, Sample Site R Radial, pH 7.20 L, Bicarbonate Actual 29.8 H, Total CO2 32, Base Excess 2, O2 Saturation 98, O2 % 50, ABG pCO2 76.2 H*, ABG pO2 126 H, Oneil Test Positive, Respiration Rate 14, O2 Delivery Device BiPAP, Vent Mode BiLevel, Tidal Volume 450, POC PEEP 10, Crit Call To/Read Back Yes, Blood Gas Notified Whom briana, Clinical Comments 03/02 Clinical Impression(s) from Imaging Studies Chest X-Ray 01/24/22 11:34 IMPRESSION: Hyperexpanded lungs without a superimposed acute pulmonary process, no interval change Liver Ultrasound 01/24/22 20:53 IMPRESSION: Mass at the upper pole the right kidney suggesting neoplasm. CT scan recommended for further evaluation. Chest X-Ray 01/25/22 00:00 IMPRESSION: Stable mild cardiomegaly. No acute cardiopulmonary disease. 2D echo Sep 2021 Left ventricular systolic function is hyperdynamic. The estimated ejection fraction is 75 %. The left atrium is mildly enlarged. Trivial mitral valve insufficiency. Trivial tricuspid valve insufficiency. Right ventricular systolic pressure estimated to be 53 mmHg. Diastolic function is indeterminate. Agitated saline contrast study faintly positive for right to left interatrial shunt potentially compatible with a small PFO versus ASD. Late peaking spectral Doppler pattern near the left ventricular outflow track approaching 2 m/s (peak gradient 16 mmHg) appearing compatible with a hyperdynamic state. Charges/Coding Visit Charges Inpatient E&M: 58923 Subs Hosp L3
--- NOTE | 2022-01-25 12:43 | CASEMGMT ---
SW received a voice mail from Daniel with [facility]. She is patient's ed case manager. Patient currently only has an emergency response button. They are trying to find aides for 15 hours a week for patient. Carolyn RUIZ
[2022-01-25] MEDS: Ceftriaxone 1 GM/50 ML BAG IV (13:37)
--- NOTE | 2022-01-25 13:45 | NURSING ---
Called report to Nabil NAVA
[2022-01-25 13:54] LABS: Anion Gap 5 (5-15); BUN 22 mg/dL (7-18); BUN/Creat Ratio 34.8 RATIO (10-20); Calcium,Total 7.7 mg/dL (8.5-10.1); Chloride 87 mmol/L (98-107); Creatinine, Serum 0.63 mg/dL (0.55-1.02); EST Glomerular Filtration Rate 99 mL/min (>60); Est Glom Filt Rate - Afr Amer 120 mL/min (>60); Estimated Creatinine Clearance 47.11 ml/min; Glucose 144 mg/dL (74-106); Potassium 5.5 mmol/L (3.5-5.1); Sodium Level 114 mmol/L (136-145)
--- NOTE | 2022-01-25 14:51 | NURSING ---
Increased SPO2 at this time to 50% d/t SPO2 85-88%. LOC improved since application of bipap from airvo, pt still able to decline intubation. Dr. Trujillo at bedside.
--- NOTE | 2022-01-25 14:56 | EKG12_ITS ---
Test Reason : Blood Pressure : / mmHG Vent. Rate : 075 BPM Atrial Rate : 075 BPM P-R Int : 236 ms QRS Dur : 090 ms QT Int : 382 ms P-R-T Axes : 080 038 040 degrees QTc Int : 426 ms Sinus rhythm with 1st degree A-V block Otherwise normal ECG When compared with ECG of 24-JAN-2022 19:12, MANUAL COMPARISON REQUIRED, DATA IS UNCONFIRMED Confirmed by RADHA GARCIA, LEANN ([id number]), video news editor LEATHA GONZALEZ ([id number]) on 01/26/2022 1:04:45 PM Referred By: SAI Confirmed By:LEANN GARCIA MD
[2022-01-25] MEDS: Sodium Cl 3% 500 ML 50 ML IV (16:21)
[2022-01-25 17:39] LABS: Osmolality, Urine 451 mOsm/KG
[2022-01-25 17:41] LABS: Urine Sodium 9 mmol/L (Not Establ.)
[2022-01-25 18:44] LABS: Anion Gap 2 (5-15); BUN 24 mg/dL (7-18); BUN/Creat Ratio 34.6 RATIO (10-20); Calcium,Total 7.7 mg/dL (8.5-10.1); Chloride 87 mmol/L (98-107); Creatinine, Serum 0.69 mg/dL (0.55-1.02); EST Glomerular Filtration Rate 89 mL/min (>60); Est Glom Filt Rate - Afr Amer 108 mL/min (>60); Estimated Creatinine Clearance 47.11 ml/min; Glucose 143 mg/dL (74-106); Potassium 5.5 mmol/L (3.5-5.1); Sodium Level 122 mmol/L (136-145)
[2022-01-25] MEDS: Budesonide Respules 0.5 MG/2 ML AMPUL.NEB. INHALATION (19:02)
[2022-01-25] MEDS: Albuterol 2.5 MG/3 ML VIAL.NEB. INHALATION (20:41)
--- NOTE | 2022-01-25 20:50 | PCM.HOSP.N ---
Hospitalist Note Received message that she was anxious and agitated and trying to take off bipap. ABG ordered d/t mental status. Came to eval, bipap off, daughter at bedside. Discussed with both importance of the bipap and that she has high chance of mortality with it off. Pt minimally answering questions. She is DNR/DNI. Discussed that medications to help with her anxiety could contribute to decreased respiratory drive, specifically with her off the bipap. Agreeable to try bipap again with something for anxiety. Not presently taking PO, due to agitation and not wanting to significantly worsen resp status will try very small dose of haldol to help tolerate the bipap. Had long discussion with daughter about prognosis.
[2022-01-25] MEDS: Haloperidol Lactate 5 MG/ML Vial IV (21:01)
[2022-01-25 21:16] LABS: Base Excess 1 mmol/L (-2 to +2); Bicarbonate 30.1 mmol/L (22-26); Blood Gas Specimen Type ART; FI02 40; O2 Delivery Device BiPAP; PEEP 10; PO2 86 mmHG (75-100); RR 12; SITE R Radial; SO2 92 % (95-99); Total Carbon Dioxide 33 mmol/L; Vt 450; pCO2 85.5 mmHg (35-45); pH 7.16 (7.35-7.45)
[2022-01-26] VITALS (52 sets, daily range): BP systolic 82–156; BP diastolic 34–124; PULSE 76–162; RESP 14–32; TEMP 37.1–38.1; O2SAT 30–100
[2022-01-26] MEDS: Enoxaparin 60 MG/0.6 ML Syringe SC ×3 (00:02→22:16)
[2022-01-26] MEDS: Ondansetron 4 MG/2 ML Vial IV ×3 (02:33→17:43)
[2022-01-26 04:09] LABS: Anion Gap 6 (5-15); BUN 22 mg/dL (7-18); BUN/Creat Ratio 40.9 RATIO (10-20); Calcium,Total 8.1 mg/dL (8.5-10.1); Chloride 92 mmol/L (98-107); Creatinine, Serum 0.54 mg/dL (0.55-1.02); EST Glomerular Filtration Rate 119 mL/min (>60); Est Glom Filt Rate - Afr Amer 144 mL/min (>60); Estimated Creatinine Clearance 47.11 ml/min; Glucose 102 mg/dL (74-106); Magnesium 2.3 mg/dL (1.6-2.6); Potassium 4.8 mmol/L (3.5-5.1); Sodium Level 127 mmol/L (136-145)
[2022-01-26] MEDS: Metoprolol Tartrate 5 MG/5 ML Vial IV (06:23)
--- NOTE | 2022-01-26 06:30 | NURSING ---
Pt reported to this nurse that she was going to vomit while on Bipap. Pt stated nausea was related to 9/10 back pain. During this time, her HR went >140 and BP elevated as well. Verbal encouragement provided as well as back rub per pt request. MD notified, orders for PRN morphine given. PRN Metoprolol given per order. Pt did not vomit at this time, will continue to monitor.
[2022-01-26] MEDS: Morphine 2 MG/ML Syringe 0.5 MG IV (06:50)
[2022-01-26] MEDS: 0.9% Saline Lock 10 ML Syringe IV ×5 (06:51→22:17)
[2022-01-26] MEDS: Budesonide Respules 0.5 MG/2 ML AMPUL.NEB. INHALATION ×2 (06:53→19:41)
[2022-01-26] MEDS: Ipratropium/Albuterol Sulfate 3 ML AMPUL.NEB INHALATION ×4 (06:53→19:42)
--- NOTE | 2022-01-26 07:18 | PCM.PN.HOSP ---
Subjective Subjective Follow-up for acute combined respiratory failure, severe hyponatremia along with multiple other active medical issues Objective Data Objective Data Vital Signs: Vital Signs Temp Pulse Resp BP Pulse Ox O2 Del Method O2 Flow Rate 100.0 F H 125 H 18 144/124 H 97 Bi-pap 3 01/26/22 06:00 01/26/22 06:23 01/26/22 06:00 01/26/22 06:23 01/26/22 06:00 01/26/22 06:00 01/25/22 04:40 FiO2 30 01/26/22 06:00 Oxygen Flow Rate (L/min) 3 Oxygen Delivery Method Bi-pap Weight: 133 lb 8 oz Body Mass Index (BMI) 26.6 Intake & Output: Intake and Output for Last 24 Hours 01/24/22 01/25/22 01/26/22 23:59 23:59 23:59 Intake Total 953.92 / 953.92 1548.33 / 1548.33 Output Total 350 / 350 600 / 600 Balance 953.92 / 953.92 1198.33 / 1198.33 -600 / -600 Lab / Micro Data Result Diagrams: 01/25/22 04:15 01/26/22 08:10 Labs: Laboratory Results - last 24 hr 01/25/22 04:15: Cortisol 92.20 H 01/25/22 04:15: Free T4 1.36 01/25/22 08:55: COVID-19 (ROSANA) Not Detected 01/25/22 13:20: Sodium 114 L*, Potassium 5.5 H, Chloride 87 L, Carbon Dioxide 22.0, Anion Gap 5, BUN 22 H, Creatinine 0.63, Estim Creat Clear Calc 47.11, Est GFR (MDRD) Af Amer 120, Est GFR (MDRD) Non-Af 99, BUN/Creatinine Ratio 34.8 H, Glucose 144 H, Calcium 7.7 L 01/25/22 16:55: Urine Osmolality 451, Ur Random Sodium 9 01/25/22 18:00: Sodium 122 L, Potassium 5.5 H, Chloride 87 L, Carbon Dioxide 33.0 H, Anion Gap 2 L, BUN 24 H, Creatinine 0.69, Estim Creat Clear Calc 47.11, Est GFR (MDRD) Af Amer 108, Est GFR (MDRD) Non-Af 89, BUN/Creatinine Ratio 34.6 H, Glucose 143 H, Calcium 7.7 L 01/26/22 03:48: Sodium 127 L, Potassium 4.8, Chloride 92 L, Carbon Dioxide 29.0, Anion Gap 6, BUN 22 H, Creatinine 0.54 L, Estim Creat Clear Calc 47.11, Est GFR (MDRD) Af Amer 144, Est GFR (MDRD) Non-Af 119, BUN/Creatinine Ratio 40.9 H, Glucose 102, Calcium 8.1 L, Magnesium 2.3 Micro: Microbiology 01/25/22 16:55 Urine Catheter - Myers Legionella Antigen - Final 01/25/22 16:55 Urine Catheter - Myers Streptococcus pneumoniae Antigen (M - Final 01/25/22 08:55 Mucosa - Nose Respiratory Panel (PCR) - Final Influenza A (Subtype H1) 01/24/22 11:30 Nasal Secretion SARS-CoV-2 & FLU Antigen (Rapid) - Final ABG Data ABG results: ABG 01/25/22 01/25/22 10:35 21:09 Specimen Type ART ART Sample Site R Radial R Radial pH 7.20 L 7.16 L* Bicarbonate Actual 29.8 H 30.1 H Total CO2 32 33 Base Excess 2 1 O2 Saturation 98 92 L O2 % 50 40 ABG pCO2 76.2 H* 85.5 H* ABG pO2 126 H 86 Oneil Test Positive N/A Respiration Rate 14 12 O2 Delivery Device BiPAP BiPAP Vent Mode BiLevel Tidal Volume 450 450 POC PEEP 10 10 Crit Call To/Read Back Yes Yes Blood Gas Notified Whom briana Patino Clinical Comments 03/02 Physical Exam Narrative Overnight, patient became very short of breath. She also had right upper quadrant pain. ABG was done which shows pH 7.02, PCO2 120 and BiPAP was put on. Patient remains short of breath, sitting in tripod position. Not enough cough. Physical exam General: Awake, sitting position, on BiPAP, mild respiratory distress. Oriented x3. HEENT: Atraumatic, PERRLA, EOMI, Normocephalic Oral: On BiPAP Neck: Supple, No JVD, Negative Carotid Bruits Lungs: Air entry severely diminished in bilateral lungs. Tachypnea, hypoxia. Expiratory rhonchi no crepitation/rhonchi Cardiovascular: Sinus tachycardia, Normal S1, Normal S2, No murmurs Abdomen: Soft, nondistended. Midline abdominal scar. No tenderness, no guarding/rigidity. Bowel Sounds sluggish. : No renal angle tenderness. No suprapubic tenderness. Extremities: No edema, Capillary Refill Less than 3 Seconds Skin: No rashes, No breakdown Musculoskeletal: No Tenderness to Palpation of Joints or Extremities. Moderate atrophy of muscles of extremities. Left AKA Neurological: Cranial nerves II-XII grossly intact, DTR 2+/4 and Symmetrical, Neuro grossly intact Psych/Mental Status: Ill-appearing, distress. Assessment & Plan Assessment/Plan (1) Atrial fibrillation with rapid ventricular response: PLAN: Plan This is a 71-year-old female multiple comorbidities were admitted with narrow complex tachycardia along with abdominal pain. 1. Narrow complex tachycardia, started with SVT and then A. fib with RVR: Patient is being admitted in PCU. EKG shows SVT A. fib with RVR with ST depression in V3 to V6. Serial troponin enzymes ordered. Last echo in September 2021 reported EF 75% hyperdynamic LV, LA mildly depressed. Small PFO stenosis ASD on saline contrast study. Patient is on Cardizem drip at 10 mg/h. Metoprolol 5 mg IV as needed every 6 hourly ordered for heart rate more than 120/min. Started on Lovenox 1 milligram per KG body weight. Patient had chest pressure at home which is resolved. Potassium 3.5, low normal. Serum magnesium and phosphorus level normal. Try to keep potassium, around 4 and magnesium around 2.0 mg/dL 01/25: Narrow complex tachycardia resolved. Currently patient 85 bpm. 01/26: Patient currently sinus tachycardia heart rate 125 to 138/min mainly driven by respiratory failure 2.? Acute on chronic combined hypercarbic. Hypoxic respiratory failure: Although patient patient in mild respiratory distress tachypnea as by EMS in ED, oxygen requirement is 4 L at home. 01/25: Acute on chronic combined hypoxic and hypercarbic respiratory failure after admission: Patient is chronic CO2 retainer. Previous ABG also showed PCO2 79.7 in May 2019. On talent manager on 01/25, patient had respiratory distress with RUQ pain. ABG showed high respiratory acidosis with pH 7.02, PCO2 120 and patient was put on BiPAP. Repeat ABG done in the morning on AVAPS 50% FiO2, PEEP 10 shows pH 7.2 0/76/126. I discussed with supervisor maintenance Dr. Benton and we agreed that patient is DNR CC arrest with no intubation and can be managed on NIPPV. Patient to continue on AVAPS and transition to Airvo on 18. Continue bronchodilator and IV Solu-Medrol. Patient also had nausea and could not had Zithromax therefore changed to doxycycline. Exact etiology is unclear. Repeat chest x-ray does not show acute cardiopulmonary abnormality. Respiratory panel pending. SARS-CoV-2 flu antigen negative. Urinary antigens and COVID-19 PCR. Empirically started on IV ceftriaxone and Zithromax. 01/26: Yesterday, I transferred patient to in the context of for severe hyponatremia and respiratory failure. Patient could not get off BiPAP since yesterday morning more than 24 hours. Earlier for last 2 days patient said she did not want intubation. As per night nursing staff, family had disagreement, daughters wanted full code but son wanted to follow her wish which was DNRCC no intubation. In the morning today she changed her mind and want to be DNR CCA with intubation. She still does not want CPR. Patient's nighttime RN and I confirmed with the patient. I talked to the patient's daughter Mrs. Mayte Mixon and spent good time explaining her medical disease, physical and functional capacity and poor prognosis. She will talk to her brother and will let us know. I told her that she does not have good quality of life or functional capacity. She has multiple organ dysfunctions. I suggested palliative with hospice would be a good option for her. 3. Hypotonic hypovolemic hyponatremia with CKD stage IIIa with diabetic nephropathy: Sodium is 120. Patient looks severely dehydrated. On IV fluid normal saline. Discussed with the health education aide. TSH low at 0.33 Free T4 1.36. Cortisol 92 high. Lipid profile within normal limit. Creatinine normal estimated creatinine clearance 57/min, But urine shows proteinuria which is chronic. 01/26: Sodium improved from 120, 114, 122-1 27. Hypertonic 3% saline discontinued. Inside Sales Person managing hypertonic saline 3.? DM type II: Accu-Chek H&H's and cover with [place] sliding scale. Glucose is 160 01/26: Glucose 102. 4.? Acute on chronic abdominal pain with history of chronic mesenteric ischemia, peripheral arterial disease, history of AAA status post graft, CVA and ex-smoker: Patient was last admitted in September 2021 for abdominal pain. At that time patient was seen by telephone sex worker and vascular surgeon. 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 As per vascular surgery note, her grafts were patent. She also history of bilateral femoral endarterectomy, bilateral common and external iliac stents. She quit smoking in February 2013. Patient is on aspirin. Hold Plavix as patient is started on Lovenox therapeutic dose Continue Lipitor. 5.? GERD on PPI. 6. DVT high risk: On therapeutic dose of Lovenox Total time of the visit including total time spent in counseling or coordination of care, (more than 50% of the total time, spent in obtaining medical information from nurses and other ancillary care providers,explaining to the patient about labs, imaging, diagnosis and management of active complex medical conditions), discussion with consultants supervisor maintenance and health education aide, respiratory therapist, review of labs and imaging is 50 minutes. Living will/advanced directive/end of life care: Patient does not have living will or advanced directive. Daughter is next to kin. After discussion of benefits/risks procedures involved with full code, DNR CC arrest and DNR CC, the patient opted for DNR CC arrest with no intubation in the first 2 days but she changed her mind DNR CCA with intubation. Stated she does not want CPR. Microbiology Past 72 Hours 01/25/22 16:55 Urine Catheter - Myers Legionella Antigen - Final 01/25/22 16:55 Urine Catheter - Myers Streptococcus pneumoniae Antigen (M - Final 01/25/22 08:55 Mucosa - Nose Respiratory Panel (PCR) - Final Influenza A (Subtype H1) 01/24/22 11:30 Nasal Secretion SARS-CoV-2 & FLU Antigen (Rapid) - Final Laboratory Results 01/25/22 04:15: Cortisol 92.20 H 01/25/22 04:15: Free T4 1.36 01/25/22 08:55: COVID-19 (ROSANA) Not Detected 01/26/22 03:48: Sodium 127 L, Potassium 4.8, Chloride 92 L, Carbon Dioxide 29.0, Anion Gap 6, BUN 22 H, Creatinine 0.54 L, Estim Creat Clear Calc 47.11, Est GFR (MDRD) Af Amer 144, Est GFR (MDRD) Non-Af 119, BUN/Creatinine Ratio 40.9 H, Glucose 102, Calcium 8.1 L, Magnesium 2.3 Clinical Impression(s) from Imaging Studies Chest X-Ray 01/24/22 11:34 IMPRESSION: Hyperexpanded lungs without a superimposed acute pulmonary process, no interval change Liver Ultrasound 01/24/22 20:53 IMPRESSION: Mass at the upper pole the right kidney suggesting neoplasm. CT scan recommended for further evaluation. Chest X-Ray 01/25/22 00:00 IMPRESSION: Stable mild cardiomegaly. No acute cardiopulmonary disease. 2D echo Sep 2021 Left ventricular systolic function is hyperdynamic. The estimated ejection fraction is 75 %. The left atrium is mildly enlarged. Trivial mitral valve insufficiency. Trivial tricuspid valve insufficiency. Right ventricular systolic pressure estimated to be 53 mmHg. Diastolic function is indeterminate. Agitated saline contrast study faintly positive for right to left interatrial shunt potentially compatible with a small PFO versus ASD. Late peaking spectral Doppler pattern near the left ventricular outflow track approaching 2 m/s (peak gradient 16 mmHg) appearing compatible with a hyperdynamic state. Charges/Coding Visit Charges Inpatient E&M: 92046 Subs Hosp L3
[2022-01-26 08:33] LABS: Anion Gap 7 (5-15); BUN 21 mg/dL (7-18); BUN/Creat Ratio 35.1 RATIO (10-20); Calcium,Total 8.3 mg/dL (8.5-10.1); Chloride 91 mmol/L (98-107); EST Glomerular Filtration Rate 106 mL/min (>60); Est Glom Filt Rate - Afr Amer 128 mL/min (>60); Estimated Creatinine Clearance 50.76 ml/min; Glucose 130 mg/dL (74-106); Potassium 4.4 mmol/L (3.5-5.1); Sodium Level 127 mmol/L (136-145)
--- NOTE | 2022-01-26 08:54 | EKG12_ITS ---
Test Reason : RHYTHM CHANGE Blood Pressure : / mmHG Vent. Rate : 153 BPM Atrial Rate : 082 BPM P-R Int : 000 ms QRS Dur : 074 ms QT Int : 256 ms P-R-T Axes : 000 054 -19 degrees QTc Int : [address] & T wave abnormality, consider lateral ischemia Abnormal ECG When compared with ECG of 25-JAN-2022 15:20, MANUAL COMPARISON REQUIRED, DATA IS UNCONFIRMED Confirmed by RADHA GARCIA, LEANN ([id number]), editor producer LEATHA GONZALEZ ([id number]) on 01/26/2022 1:08:41 PM Referred By: SAI Confirmed By:LEANN GARCIA MD
[2022-01-26] MEDS: Metoprolol Tartrate 5 MG/5 ML Vial 2.5 MG IV ×2 (09:12→10:05)
--- NOTE | 2022-01-26 09:55 | RAD_ITS ---
STUDY: X-RAY CHEST REASON FOR EXAM: Female, 71 years old. Shortness of breath TECHNIQUE: Single AP portable view x2 of the chest. COMPARISON: January 25, 2022 chest x-ray FINDINGS: Partially visualized postoperative changes in the neck soft tissues. Comparison study there is blunting of the left costophrenic angle. The patient is still slightly rotated. There is a slight scoliosis. The patient is likely kyphotic. There is minimal right lower lobe atelectasis. There is borderline cardiomegaly. Normal mediastinum and rhea. Normal visualized pulmonary arteries. There is atherosclerotic tortuosity of the aortic arch and descending thoracic aorta. There is a dextroscoliosis of the thoracic spine. Normal visualized ribs, clavicles, and shoulders. There is no demonstrated abnormality of the visualized soft tissue structures of the upper abdomen. RAD/Chest 1 View (Portable) IMPRESSION: Scoliosis. Interval visualization of a small pleural effusion. Minimal right lower lobe atelectasis. Electronically Signed: Cesilia Hill MD at 16:21 RUST ,
[2022-01-26] MEDS: Lidocaine 5% Patch 2 PATCH TOPICAL (10:06)
[2022-01-26] MEDS: Ceftriaxone 1 GM/50 ML BAG IV (10:07)
--- NOTE | 2022-01-26 11:13 | PN.RENAL_ITS ---
Documented by User: LEE Cano 01/26/22 11:30 Subjective Subjective Following for hyponatremia Patient was moved to ICU last evening for acute hyponatremia and poor respiratory status. She is on BiPAP. Patient is alert and oriented. Objective Data Objective Data Vital Signs: Vital Signs Temp Pulse Resp BP Pulse Ox O2 Del Method O2 Flow Rate 100.0 F H 136 H 28 H 144/124 H 92 Nasal Cannula 4 01/26/22 06:00 01/26/22 10:52 01/26/22 10:52 01/26/22 06:23 01/26/22 10:51 01/26/22 07:26 01/26/22 07:26 FiO2 30 01/26/22 10:51 Oxygen Flow Rate (L/min) 4 Oxygen Delivery Method Nasal Cannula Weight: 60.555 kg Body Mass Index (BMI) 26.6 Intake & Output: Intake and Output for Last 24 Hours 01/24/22 01/25/22 01/26/22 23:59 23:59 23:59 Intake Total 953.92 / 953.92 1548.33 / 1548.33 Output Total 350 / 350 600 / 600 Balance 953.92 / 953.92 1198.33 / 1198.33 -600 / -600 Lab / Micro Data Result Diagrams: 01/25/22 04:15 01/26/22 12:35 Labs: Laboratory Results - last 24 hr 01/25/22 04:15: Sodium Cancelled, Potassium Cancelled, Chloride Cancelled, Ca rbon Dioxide Cancelled, Anion Gap Cancelled, BUN Cancelled, Creatinine Cancelled, Estim Creat Clear Calc Cancelled, Est GFR (MDRD) Af Amer Cancelled, Est GFR (MDRD) Non-Af Cancelled, BUN/Creatinine Ratio Cancelled, Glucose Cancelled, Calcium Cancelled, Triglycerides Cancelled, Cholesterol Cancelled, LDL Cholesterol Cancelled, VLDL Cholesterol Cancelled, HDL Cholesterol Cancelled, TSH Cancelled 01/25/22 08:55: COVID-19 (ROSANA) Not Detected 01/25/22 13:20: Sodium 114 L*, Potassium 5.5 H, Chloride 87 L, Carbon Dioxide 22.0, Anion Gap 5, BUN 22 H, Creatinine 0.63, Estim Creat Clear Calc 47.11, Est GFR (MDRD) Af Amer 120, Est GFR (MDRD) Non-Af 99, BUN/Creatinine Ratio 34.8 H, Glucose 144 H, Calcium 7.7 L 01/25/22 16:55: Urine Osmolality 451, Ur Random Sodium 9 01/25/22 18:00: Sodium 122 L, Potassium 5.5 H, Chloride 87 L, Carbon Dioxide 33.0 H, Anion Gap 2 L, BUN 24 H, Creatinine 0.69, Estim Creat Clear Calc 47.11, Est GFR (MDRD) Af Amer 108, Est GFR (MDRD) Non-Af 89, BUN/Creatinine Ratio 34.6 H, Glucose 143 H, Calcium 7.7 L 01/26/22 03:48: Sodium 127 L, Potassium 4.8, Chloride 92 L, Carbon Dioxide 29.0, Anion Gap 6, BUN 22 H, Creatinine 0.54 L, Estim Creat Clear Calc 47.11, Est GFR (MDRD) Af Amer 144, Est GFR (MDRD) Non-Af 119, BUN/Creatinine Ratio 40.9 H, Glucose 102, Calcium 8.1 L, Magnesium 2.3 01/26/22 08:10: Sodium 127 L, Potassium 4.4, Chloride 91 L, Carbon Dioxide 29.0, Anion Gap 7, BUN 21 H, Creatinine 0.60, Estim Creat Clear Calc 50.76, Est GFR (MDRD) Af Amer 128, Est GFR (MDRD) Non-Af 106, BUN/Creatinine Ratio 35.1 H, Glucose 130 H, Calcium 8.3 L Micro: Microbiology 01/25/22 16:55 Urine Catheter - Myers Legionella Antigen - Final 01/25/22 16:55 Urine Catheter - Myers Streptococcus pneumoniae Antigen (M - Final 01/25/22 08:55 Mucosa - Nose Respiratory Panel (PCR) - Final Influenza A (Subtype H1) 01/24/22 11:30 Nasal Secretion SARS-CoV-2 & FLU Antigen (Rapid) - Final ABG Data ABG results: ABG 01/25/22 21:09 Specimen Type ART Sample Site R Radial pH 7.16 L* Bicarbonate Actual 30.1 H Total CO2 33 Base Excess 1 O2 Saturation 92 L O2 % 40 ABG pCO2 85.5 H* ABG pO2 86 Oneil Test N/A Respiration Rate 12 O2 Delivery Device BiPAP Tidal Volume 450 POC PEEP 10 Crit Call To/Read Back Yes Blood Gas Notified Whom Dr Patino Physical Exam Narrative General: Alert and oriented x3. HEENT: She is on BiPAP. PERRLA, EOMI. Hearing is intact. Cardiovascular: Irregularly irregular S1, S2. There is no rubs, murmurs or gallops. Lungs: Chest is barreled. Diminished breath sounds posteriorly, faint rhonchi noted Abdomen: Normal bowel sounds, soft, nontender. Extremities: Status post left AKA. There is no edema of the right lower extremity. Musculoskeletal: The patient is kyphotic. There is no joint swelling. Skin: Warm and dry, no rash. Assessment & Plan Assessment/Plan (1) Hyponatremia: (2) Essential (primary) hypertension: (3) COPD (chronic obstructive pulmonary disease): QUALIFIERS: COPD type: unspecified COPD Qualified Code(s): J44.9 - Chronic obstructive pulmonary disease, unspecified (4) Atrial fibrillation with rapid ventricular response: PLAN: Plan - Suspect hyponatremia is hypotonic hyponatremia from volume/solute depletion due to poor oral intake and nausea/vomiting. Sodium on admission 120, sodium dropped to 114 yesterday at 1300 and started on 3% saline at 50 mL an hour. Serum sodium improved to 122 last evening and has been at 127 last 8 hours. She is now off 3% saline. No need for 3% saline at this time. Would like to encourage solute intake (protein) although this is difficult because she is on BiPAP. Urine Osmo 451, urine sodium 9, urine potassium 25, TSH low 0.33, free T4 normal. Continue to trend serum sodium serially every 6 hours Acute on chronic hyponatremia dating back to at least 2011. October 10, 2021 sodium 136. Possible baseline sodium around 131-133. - Hyperkalemia resolved, off potassium supplements. - Hypertension; on losartan, lopressor. Recommend avoiding thiazide diuretic. - Afib with RVR on cardizem gtt Documented by User: Dr. Daniella Guerrero MD 01/26/22 15:14 Objective Data Lab / Micro Data Result Diagrams: 01/25/22 04:15 01/26/22 12:35 Assessment & Plan Assessment/Plan (1) Hyponatremia: (2) Essential (primary) hypertension: (3) COPD (chronic obstructive pulmonary disease): QUALIFIERS: COPD type: unspecified COPD Qualified Code(s): J44.9 - Chronic obstructive pulmonary disease, unspecified (4) Atrial fibrillation with rapid ventricular response: PLAN: Plan - Suspect hyponatremia is hypotonic hyponatremia from volume/solute depletion due to poor oral intake and nausea/vomiting. Sodium on admission 120, sodium dropped to 114 yesterday at 1300 and started on 3% saline at 50 mL an hour. Serum sodium improved to 122 last evening and has been at 127 last 8 hours. She is now off 3% saline. No need for 3% saline at this time. Would like to encourage solute intake (protein) although this is difficult because she is on BiPAP. Urine Osmo 451, urine sodium 9, urine potassium 25, TSH low 0.33, free T4 normal. Continue to trend serum sodium serially every 6 hours Acute on chronic hyponatremia dating back to at least 2011. October 10, 2021 sodium 136. Possible baseline sodium around 131-133. - Hyperkalemia resolved, off potassium supplements. - Hypertension; on losartan, lopressor. Recommend avoiding thiazide diuretic. - Afib with RVR on cardizem gtt Nephrology attending addendum: The patient is seen and examined personally. Nurse practitioner's note reflects my independent medical decision making with my attestation below. Following for hyponatremia. The patient was moved to ICU yesterday afternoon. She is more alert today. She remains on BiPAP. The patient denies headache, nausea, or confusion. Vital signs and examination as above. There is no edema of the lower extremities. Lungs are coarse to auscultation bilaterally. Heart tone is irregularly irregular. Impression/Plan: The patient is a 71-year-old woman with past history of type 2 diabetes mellitus, hypertension, PAD with known mesenteric ischemia and abdominal aortic aneurysm status post endovascular graft, COPD, stroke, hyperlipidemia, and GERD.? The patient is admitted to the hospital on 01/24/2022 with a 3 to 4 weeks history of anorexia, nausea, vomiting and generalized weakness.? She has been diagnosed with COPD exacerbation along with atrial fibrillation with RVR.? Nephrology is following asked to see the patient because of hyponatremia. Hyponatremia. The patient has had prior history of transient hyponatremia although last available serum sodium prior to this admission from 10/10/2021 was 136 mmol/L. Hyponatremia is due to hypovolemic hypotonic hyponatremia from volume/solute depletion due to poor oral intake and nausea/vomiting. Urine sodium was less than 30 mmol/L with urine osmolality of greater than 100 mOsm/kg. The patient was confused yesterday (01/25/2022) with serum sodium falling to 114 mmol/L at 1:20 PM. Therefore, she was treated with hypertonic saline. Serum sodium is now 128 mmol/L this afternoon at 12:35 PM. We want serum sodium to increase by with no more than 10 mmol/L/day to avoid osmotic demyelination. Therefore, I will re lower serum sodium with D5W. Continue to check serum sodium every 4 hours for today. Continue to encourage oral solute intake if possible (patient is still on BiPAP which likely interferes with her intake). Continue to limit oral fluid to 1.2 L/day. Further changes in management will depend on serum sodium trajectory. Hyperkalemia. The patient was on potassium chloride supplement. Potassium level increased to 5.5 mmol/L yesterday (01/25/2022). Stop potassium supplementation. Continue to hold losartan for now as well. Continue to monitor serum potassium along with sodium. Hypertension. The patient is off of losartan because of hyperkalemia yesterday (01/25/2022). BP is reasonably controlled off of losartan. The patient is on metroprolol tartrate at 75 mg 3 times daily. Recommend avoiding thiazide diuretic because of hyponatremia. Nephrology plan will be discussed with Dr. Trujillo.
[2022-01-26] MEDS: MethylPREDNISolone 125 MG/2 ML Vial 60 MG IV ×3 (11:17→22:16)
[2022-01-26] MEDS: Ketorolac 15 MG/ML Vial IV (11:18)
[2022-01-26 13:48] LABS: Sodium Level 128 mmol/L (136-145)
--- NOTE | 2022-01-26 14:54 | PCM.PN.INT ---
Assessment & Plan Assessment/Plan (1) Atrial fibrillation with rapid ventricular response: PLAN: Rate is better controlled with Cardizem drip and IV metoprolol Serial troponins No pulmonary edema so far. (2) History of peripheral arterial disease: PLAN: Currently stable (3) History of diabetes mellitus: PLAN: Management per primary (4) Acute on chronic respiratory failure with hypoxia and hypercapnia: PLAN: Severe COPD, uncertain reason for exacerbation, likely metabolic, no evidence of acute infection with clear chest x-ray Patient would not want intubation if necessary but does not want CPR patient's respiratory failure is multifactorial, she is a known severe CO2 retainer due to COPD, had worsening renal failure possibly with more metabolic acidosis. Possible lactic acidosis from peripheral vascular disease and hypoxemia Supportive care BiPAP ventilation at current settings of 450 times rate of 18 times PEEP of 7, weaning O2 from 50%., keep SPO2 between 90 and 94% Palliative care, she would be a good candidate for hospice. (5) BiPAP (biphasic positive airway pressure) dependence: PLAN: As above (6) Hyponatremia: PLAN: Managed by primary, 3% saline has been stopped. She is now on no fluids and will be adjusted as needed (7) CKD stage 3 due to type 2 diabetes mellitus: PLAN: Supportive care PLAN: Plan As above. I discussed her advanced directives with the patient and her son and daughter, all were in agreement that she could have a trial of intubation if it becomes necessary. But no CPR. We did not discuss specifically dialysis or cardioversion. Subjective Subjective Patient feels much better today, on AVAPS at 450 x 18 x 7 of PEEP and 50%. Complains of severe back pain and asking for pain medication. Objective Data Objective Data 71-year-old woman with respiratory failure with influenza A type H1 N1, positive PCR, atrial fibrillation with rapid ventricular response on Cardizem drip, and metoprolol. She was admitted with hyponatremia of 114, and complex PMH. She has been BiPAP dependent, with profound respiratory acidosis, which is begun to improve today. She was close to needing intubation last night, but improved throughout the morning, with good mental status, less tachypnea. She also developed rapid atrial fibrillation in the 150s, which improved after IV Cardizem and IV metoprolol. She denied any chest pain. Overnight was febrile to 100.0 and stable on BiPAP at 3 L of oxygen with a respiratory rate of 18 pulse 125 and saturation of 97%. Pulse is now in the 100-teens. 3% saline was stopped.? Labs remarkable for hemoglobin 10.3, sodium of 127 chloride 92 BUN 22 creatinine 0.54.? Serum cortisol is high at 92, hyperkalemia is resolved.? ABG at 2100 was 7.16 PCO2 85 PO2 86 on BiPAP; repeat on AVAPS 50%, PEEP 10 was 7.2 0/76/126.? She is on every 6 hours bronchodilator and intravenous Solu-Medrol Echo in September 2021 reported EF 75%, hyperdynamic LV, LA mildly depressed.? Small PFO stenosis ASD on saline contrast study. Vital Signs: Vital Signs Temp Pulse Resp BP Pulse Ox O2 Del Method O2 Flow Rate 100.4 F H 115 H 28 H 106/64 95 Bi-pap 4 01/26/22 13:00 01/26/22 14:12 01/26/22 14:12 01/26/22 13:30 01/26/22 14:12 01/26/22 13:00 01/26/22 07:26 FiO2 30 01/26/22 14:12 Oxygen Flow Rate (L/min) 4 Oxygen Delivery Method Bi-pap Weight: 133 lb 8 oz Body Mass Index (BMI) 26.6 Intake & Output: Intake and Output for Last 24 Hours 01/24/22 01/25/22 01/26/22 23:59 23:59 23:59 Intake Total 953.92 / 953.92 1548.33 / 1548.33 183.58 / 183.58 Output Total 350 / 350 875 / 875 Balance 953.92 / 953.92 1198.33 / 1198.33 -691.42 / -691.42 Lab / Micro Data Attestation: I reviewed the patient's lab results. Result Diagrams: 01/25/22 04:15 01/26/22 12:35 Labs: Laboratory Results - last 24 hr 01/25/22 16:55: Urine Osmolality 451, Ur Random Sodium 9 01/25/22 18:00: Sodium 122 L, Potassium 5.5 H, Chloride 87 L, Carbon Dioxide 33.0 H, Anion Gap 2 L, BUN 24 H, Creatinine 0.69, Estim Creat Clear Calc 47.11, Est GFR (MDRD) Af Amer 108, Est GFR (MDRD) Non-Af 89, BUN/Creatinine Ratio 34.6 H, Glucose 143 H, Calcium 7.7 L 01/26/22 03:48: Sodium 127 L, Potassium 4.8, Chloride 92 L, Carbon Dioxide 29.0, Anion Gap 6, BUN 22 H, Creatinine 0.54 L, Estim Creat Clear Calc 47.11, Est GFR (MDRD) Af Amer 144, Est GFR (MDRD) Non-Af 119, BUN/Creatinine Ratio 40.9 H, Glucose 102, Calcium 8.1 L, Magnesium 2.3 01/26/22 08:10: Sodium 127 L, Potassium 4.4, Chloride 91 L, Carbon Dioxide 29.0, Anion Gap 7, BUN 21 H, Creatinine 0.60, Estim Creat Clear Calc 50.76, Est GFR (MDRD) Af Amer 128, Est GFR (MDRD) Non-Af 106, BUN/Creatinine Ratio 35.1 H, Glucose 130 H, Calcium 8.3 L 01/26/22 10:15: Urine Potassium 25.0 01/26/22 12:35: Sodium 128 L Micro: Microbiology 01/25/22 16:55 Urine Catheter - Myers Legionella Antigen - Final 01/25/22 16:55 Urine Catheter - Myers Streptococcus pneumoniae Antigen (M - Final 01/25/22 08:55 Mucosa - Nose Respiratory Panel (PCR) - Final Influenza A (Subtype H1) 01/24/22 11:30 Nasal Secretion SARS-CoV-2 & FLU Antigen (Rapid) - Final ABG Data ABG results: ABG 01/25/22 21:09 Specimen Type ART Sample Site R Radial pH 7.16 L* Bicarbonate Actual 30.1 H Total CO2 33 Base Excess 1 O2 Saturation 92 L O2 % 40 ABG pCO2 85.5 H* ABG pO2 86 Oneil Test N/A Respiration Rate 12 O2 Delivery Device BiPAP Tidal Volume 450 POC PEEP 10 Crit Call To/Read Back Yes Blood Gas Notified Whom Dr Patino Radiography Diagnostic Testing: Chest x-ray today has no acute infiltrates or effusions, unchanged from the last several days. It is hyperinflated with some chronic fibrotic changes. See report. Right upper quadrant ultrasound January 25, 2022: [facility] Imaging Services [address] [place] [address] Liver MR#:? [id number] Acct: [id number] Name:? MEME JOHNSON Rep #: [id number] :?? 1950 F 71 ? From:? ? Jaydon Santoyo MD PCP: Dr. Irasema Jonas MD ? Status: ADM IN Study: Liver ? Date of Exam: 01/24/22 Exam# [id number] ? Ordering Dr:? Libia Patino MD ADDENDUM by Dr. Jaydon Santoyo MD on 01/24/22 at 2249 STUDY:? ABDOMINAL ULTRASOUND - RIGHT UPPER QUADRANT REASON FOR VISIT: ? Female, 71 years old? RUQ pain TECHNIQUE: ? Ultrasound evaluation of the right upper quadrant was performed with real-time and static mohamud-scale imaging. TECHNICAL? QUALITY: ? Adequate. COMPARISON: ? None. FINDINGS: Liver:? The liver measures 14.1 cm.? There is a heterogeneous echogenicity of the liver.? The bile ducts are within normal limits.? There is hepatic color flow.? The direction of portal flow is hepatopetal.? There is no demonstrated mass lesion. Gallbladder:? The patient is status post cholecystectomy. Common Bile Duct (C.B.D.): ? The common bile duct measures 3 mm. Pancreas: ? Normal size of the head, body and tail of the pancreas.? There is normal echogenicity of the pancreas. ? There is no demonstrated pancreatic mass or cyst. Right Kidney:? Normal size of the right kidney.? The right kidney measures 8.1 cm.? Normal renal cortex.? The right cortex measures 0.4 cm.? There is 2.5 cm hypoechoic mass at the upper pole.? There is no right hydronephrosis. Physical Exam Narrative Well-developed chronically ill-appearing woman with moderately labored respirations on BiPAP. HEENT: Mucous membranes dry, no thrush, BiPAP on Neck is supple, JVD is present Lungs are markedly diminished bilaterally with fine expiratory wheezes in all lung lockwood, prolonged expiratory phase, no rales or rhonchi. No consolidation, adequate cough strength, no sputum expectorated Abdomen is soft nontender Extremities have no clubbing cyanosis or edema Neuro exam is nonfocal Skin is warm and dry. Charges/Coding Procedures Hospitalists Procedures: 31130 Critial Care 1st Hr (Critical care time spent with patient at bedside, review of documentation, lab results, radiology and other test results, discussion with colleagues and ancillary staff, clinical management of patient, and updating family if applicable, was 70 minutes. This time does not include any procedures, )
--- NOTE | 2022-01-26 15:00 | CASEMGMT ---
RN CM OR FIRST ASSIST REGISTERED NURSE CM to room to meet with patient for initial transition planning/care coordination assessment. RN CM introduced self and role at [facility]. Pt voices understanding and consents to assessment at this time. Pt resting in bed. BIPAP is in place. RN CM offered to return later, but she states she is feeling up to talking w/RN CM for assessment. Pt is A/O at this time and answers all questions appropriately. Care providers, pharmacy, and demographics verified/updated at this time. PCP: Dr Jonas. Pt states she has not been to see him for a long time d/t her brother used to take her to appts but he in August. She states she has not left her home since then, other than to come to [facility]. Pt made aware of [facility] and she is interested. She is agreeable to referral. Call placed to Minnie @ [email or web address] and she instructed RN CM to e-mail referral to Trina GARCIA @ [email or web address]. Referral e-mailed at this time. Minnie states pt's insurance requires prior auth, which often takes up to 2 weeks. Pt made aware and voices understanding. Specialists: Dr Millan-cardiology, Dr Burgos-vascular surgeon, Dr Ann-GI. Pt states she used to see a senior maintenance machinist in [place], but states it has been a long time since going there. [facility]erred Pharmacy: [facility] [place] [facility] [place] [facility] Prescription Benefit: Yes Living Will/HPOA: does not have LW or HCPOA . Interested in more information and would like to complete them while @ [facility]. She states she has 3 children, 2 dtr's and a son. She states she would want either her daughter, Mayte, to be her POA, or her son, Newton Zamora, but she is not sure yet. She states she has another daughter, but states, She hates me. It's been that way since she was little. Irasema HOFFMAN, made aware pt states she would like to complete AD. LNOK: see above. Living Arrangements: Lives w/dtr, Mayte, in ground-level apt w/no steps to enter. Pt has a Lt BKA. Pt states when her daughter is home she assists her w/bathing and w/care. She states her daughter does work a lot and pt is home alone while her daughter is @ work. Pt states she is able to take care of herself when her daughter is not there. Pt manages her own medications. Transportation: Pt states her brother used to be her transportation, but he this past August. She states she has not left her home since he passed, other than to come to the hospital. DME: States has the following DME: shower chair, BSC, hospital bed, grab bars, electric W/C and regular W/C, medical alert button, nebulizer, Trilogy, and O2 @ 3 l/m thru [facility]. Pt states she has a concentrator and portability. Pt states no need for further DME at this time. HHC/SNF: [facility] and has had HHC in the past but does not recall name of agency. Discussed discharge planning. Pt states she is not sure yet if she'll need/want to go to a SNF @ discharge or if she'll be able to return home. She states, We'll see. Pt has CM, Jerosenda, and aides thru [employer]. YASMIN Villalpando, made aware. PLAN: TBD. SNF vs Home w/possible HHC, pending course of tx and progress w/therapy. PT/OT evals pending. Michael VIRK RN, CM
[2022-01-26] MEDS: oxyCODONE 5 MG Tablet PO (15:12)
--- NOTE | 2022-01-26 15:31 | CASEMGMT ---
Social Work SW received referral for Advance Directives. SW met with pt who states she is not up to completing documents at this time. SW explained what a HCPOA is and asked if pt knew who she would appoint and pt states she needs to think about this. SW to follow up at a later date when pt is feeling better. ADAM Sanchez
[2022-01-26 17:17] LABS: Anion Gap 7 (5-15); BUN 24 mg/dL (7-18); Calcium,Total 7.9 mg/dL (8.5-10.1); Chloride 91 mmol/L (98-107); Creatinine, Serum 0.75 mg/dL (0.55-1.02); EST Glomerular Filtration Rate 81 mL/min (>60); Est Glom Filt Rate - Afr Amer 98 mL/min (>60); Estimated Creatinine Clearance 50.76 ml/min; Glucose 259 mg/dL (74-106); Potassium 4.1 mmol/L (3.5-5.1); Sodium Level 127 mmol/L (136-145)
[2022-01-26 21:13] LABS: Sodium Level 128 mmol/L (136-145)
[2022-01-27] VITALS (48 sets, daily range): BP systolic 91–134; BP diastolic 31–92; PULSE 85–118; RESP 14–30; TEMP 37.1–37.5; O2SAT 89–100
[2022-01-27 00:03] LABS: Sodium Level 126 mmol/L (136-145)
[2022-01-27] MEDS: 0.9% Saline Lock 10 ML Syringe IV ×6 (03:59→20:10)
[2022-01-27] MEDS: Albuterol 2.5 MG/3 ML VIAL.NEB. INHALATION (04:08)
[2022-01-27 04:28] LABS: Anion Gap 7 (5-15); BUN 20 mg/dL (7-18); BUN/Creat Ratio 33.9 RATIO (10-20); Calcium,Total 8.3 mg/dL (8.5-10.1); Chloride 90 mmol/L (98-107); Creatinine, Serum 0.59 mg/dL (0.55-1.02); EST Glomerular Filtration Rate 107 mL/min (>60); Est Glom Filt Rate - Afr Amer 130 mL/min (>60); Estimated Creatinine Clearance 50.76 ml/min; Glucose 180 mg/dL (74-106); Potassium 4.1 mmol/L (3.5-5.1); Sodium Level 128 mmol/L (136-145)
[2022-01-27] MEDS: MethylPREDNISolone 125 MG/2 ML Vial 60 MG IV ×2 (05:32→14:52)
[2022-01-27] MEDS: Budesonide Respules 0.5 MG/2 ML AMPUL.NEB. INHALATION ×2 (06:57→18:50)
[2022-01-27] MEDS: Ipratropium/Albuterol Sulfate 3 ML AMPUL.NEB INHALATION ×4 (06:57→18:50)
--- NOTE | 2022-01-27 07:44 | PN.HOSP_ITS ---
Subjective Subjective Follow-up for acute on chronic respiratory failure. Patient could not tolerate more than 10 minutes of BiPAP. Patient requested changing CODE STATUS to DNR CCA without intubation. Objective Data Objective Data Vital Signs: Vital Signs Temp Pulse Resp BP Pulse Ox O2 Del Method O2 Flow Rate 98.9 F 97 19 H 120/49 L 95 Bi-pap 4 01/27/22 07:00 01/27/22 07:00 01/27/22 07:00 01/27/22 07:00 01/27/22 07:00 01/27/22 07:00 01/26/22 07:26 FiO2 35 01/27/22 07:00 Oxygen Flow Rate (L/min) 4 Oxygen Delivery Method Bi-pap Weight: 132 lb 4.438 oz Body Mass Index (BMI) 26.6 Intake & Output: Intake and Output for Last 24 Hours 01/25/22 01/26/22 01/27/22 23:59 23:59 23:59 Intake Total 1548.33 / 1548.33 1101.08 / 1106.08 77.50 / 77.50 Output Total 350 / 350 1475 / 1475 250 / 250 Balance 1198.33 / 1198.33 -373.92 / -368.92 -172.50 / -172.50 Lab / Micro Data Result Diagrams: 01/25/22 04:15 01/27/22 04:00 Labs: Laboratory Results - last 24 hr 01/26/22 08:10: Sodium 127 L, Potassium 4.4, Chloride 91 L, Carbon Dioxide 29.0, Anion Gap 7, BUN 21 H, Creatinine 0.60, Estim Creat Clear Calc 50.76, Est GFR (MDRD) Af Amer 128, Est GFR (MDRD) Non-Af 106, BUN/Creatinine Ratio 35.1 H, Glucose 130 H, Calcium 8.3 L 01/26/22 10:15: Urine Potassium 25.0 01/26/22 12:35: Sodium 128 L 01/26/22 16:40: Sodium 127 L, Potassium 4.1, Chloride 91 L, Carbon Dioxide 29.0, Anion Gap 7, BUN 24 H, Creatinine 0.75, Estim Creat Clear Calc 50.76, Est GFR (MDRD) Af Amer 98, Est GFR (MDRD) Non-Af 81, BUN/Creatinine Ratio 32.0 H, Glucose 259 H, Calcium 7.9 L 01/26/22 20:50: Sodium 128 L 01/26/22 23:25: Sodium 126 L 01/27/22 04:00: Sodium 128 L, Potassium 4.1, Chloride 90 L, Carbon Dioxide 31.0, Anion Gap 7, BUN 20 H, Creatinine 0.59, Estim Creat Clear Calc 50.76, Est GFR (MDRD) Af Amer 130, Est GFR (MDRD) Non-Af 107, BUN/Creatinine Ratio 33.9 H, Glucose 180 H, Calcium 8.3 L Micro: Microbiology 01/25/22 16:55 Urine Catheter - Myers Legionella Antigen - Final 01/25/22 16:55 Urine Catheter - Myers Streptococcus pneumoniae Antigen (M - Final 01/25/22 08:55 Mucosa - Nose Respiratory Panel (PCR) - Final Influenza A (Subtype H1) 01/24/22 11:30 Nasal Secretion SARS-CoV-2 & FLU Antigen (Rapid) - Final Radiography Diagnostic Testing: Radiology Impression Chest X-Ray 01/26/22 09:55 IMPRESSION: Scoliosis. Interval visualization of a small pleural effusion. Minimal right lower lobe atelectasis. Electronically Signed: Cesilia Hill MD at 16:21 EST Reading Location ID and State: [facility] / [place] Tel , Service support , Physical Exam Narrative Patient was on BiPAP. Seems dependent on BiPAP. Patient's son and daughter had differences about palliative care/hospice. Physical exam General: Awake, sitting position, on BiPAP, mild respiratory distress. Oriented x3. HEENT: Atraumatic, PERRLA, EOMI, Normocephalic Oral: On BiPAP Neck: Supple, No JVD, Negative Carotid Bruits Lungs: Air entry severely diminished in bilateral lungs. Tachypnea, hypoxia. Expiratory rhonchi no crepitation/rhonchi Cardiovascular: Sinus tachycardia, Normal S1, Normal S2, No murmurs Abdomen: Soft, nondistended. Midline abdominal scar. No tenderness, no guarding/rigidity. Bowel Sounds sluggish. : No renal angle tenderness. No suprapubic tenderness. Extremities: No edema, Capillary Refill Less than 3 Seconds Skin: No rashes, No breakdown Musculoskeletal: No Tenderness to Palpation of Joints or Extremities. Moderate atrophy of muscles of extremities. Left AKA Neurological: Cranial nerves II-XII grossly intact, DTR 2+/4 and Symmetrical, Neuro grossly intact Psych/Mental Status: Ill-appearing, distress. Assessment & Plan Assessment/Plan (1) Atrial fibrillation with rapid ventricular response: PLAN: Plan This is a 71-year-old female multiple comorbidities were admitted with narrow complex tachycardia along with abdominal pain. 1. Narrow complex tachycardia, started with SVT and then A. fib with RVR: Patient is being admitted in PCU. EKG shows SVT A. fib with RVR with ST d epression in V3 to V6. Serial troponin enzymes ordered. Last echo in September 2021 reported EF 75% hyperdynamic LV, LA mildly depressed. Small PFO stenosis ASD on saline contrast study. Patient is on Cardizem drip at 10 mg/h. Metoprolol 5 mg IV as needed every 6 hourly ordered for heart rate more than 120/min. Started on Lovenox 1 milligram per KG body weight. Patient had chest pressure at home which is resolved. Potassium 3.5, low normal. Serum magnesium and phosphorus level normal. Try to keep potassium, around 4 and magnesium around 2.0 mg/dL 01/25: Narrow complex tachycardia resolved. Currently patient 85 bpm. 01/26: Patient currently sinus tachycardia heart rate 125 to 138/min mainly driven by respiratory failure 01/27: Patient went into A. fib RVR last night and started on Cardizem drip. On Lovenox 60 mg subcu every 12 hourly. 2.? Acute on chronic combined hypercarbic. Hypoxic respiratory failure: Although patient patient in mild respiratory distress tachypnea as by EMS in ED, oxygen requirement is 4 L at home. 01/25: Acute on chronic combined hypoxic and hypercarbic respiratory failure after admission: Patient is chronic CO2 retainer. Previous ABG also showed PCO2 79.7 in May 2019. On waterproofing mixer on 01/25, patient had respiratory distress with RUQ pain. ABG showed high respiratory acidosis with pH 7.02, PCO2 120 and patient was put on BiPAP. Repeat ABG done in the morning on AVAPS 50% FiO2, PEEP 10 shows pH 7.2 0/76/126. I discussed with research and development director Dr. Benton and we agreed that patient is DNR CC arrest with no intubation and can be managed on NIPPV. Patient to continue on AVAPS and transition to Airvo on 18. Continue bronchodilator and IV Solu-Medrol. Patient also had nausea and could not had Zithromax therefore changed to doxycycline. Exact etiology is unclear. Repeat chest x-ray does not show acute cardiopulmonary abnormality. Respiratory panel pending. SARS-CoV-2 flu antigen negative. Urinary antigens and COVID-19 PCR. Empirically started on IV ceftriaxone and Zithromax. 01/26: Yesterday, I transferred patient to in the context of for severe hyponatremia and respiratory failure. Patient could not get off BiPAP since yesterday morning more than 24 hours. Earlier for last 2 days patient said she did not want intubation. As per night nursing staff, family had disagreement, daughters wanted full code but son wanted to follow her wish which was DNRCC no intubation. In the morning today she changed her mind and want to be DNR CCA with intubation. She still does not want CPR. Patient's nighttime RN and I confirmed with the patient. I talked to the patient's daughter Mrs. Mayte Mixon and spent good time explaining her medical disease, physical and functional capacity and poor prognosis. She will talk to her brother and will let us know. I told her that she does not have good quality of life or functional capacity. She has multiple organ dysfunctions. I suggested palliative with hospice would be a good option for her. 01/28: Dependent on BiPAP. Cannot get off BiPAP. Patient is appropriate for hospice care but patient and family has to make decision. 3. Hypotonic hypovolemic hyponatremia with CKD stage IIIa with diabetic nephropathy: Sodium is 120. Patient looks severely dehydrated. On IV fluid normal saline. Discussed with the boat dock operator. TSH low at 0.33 Free T4 1.36. Cortisol 92 high. Lipid profile within normal limit. Creatinine normal sariah mated creatinine clearance 57/min, But urine shows proteinuria which is chronic. 01/26: Sodium improved from 120, 114, 122-1 27. Hypertonic 3% saline discontinued. Third Shift Lieutenant managing hypertonic saline 01/27: Serum sodium is 127, discussed with the boat dock operator yesterday. Patient was started on D5W as there was acute rise in sodium about 13 mEq in 24 hours. Patient did not had any acute change in mental status. 3.? DM type II: Accu-Chek H&H's and cover with [place] sliding scale. Glucose is 160 01/26: Glucose 102. 4.? Acute on chronic abdominal pain with history of chronic mesenteric ischemia, peripheral arterial disease, history of AAA status post graft, CVA and ex- smoker: Patient was last admitted in September 2021 for abdominal pain. At that time patient was seen by engineering professor and vascular surgeon. 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 As per vascular surgery note, her grafts were patent. She also history of bilateral femoral endarterectomy, bilateral common and external iliac stents. She quit smoking in February 2013. Patient is on aspirin. Hold Plavix as patient is started on Lovenox therapeutic dose Continue Lipitor. 5.? GERD on PPI. 6. DVT high risk: On therapeutic dose of Lovenox Total time of the visit including total time spent in counseling or coordination of care, (more than 50% of the total time, spent in obtaining medical information from nurses and other ancillary care providers,explaining to the patient about labs, imaging, diagnosis and management of active complex medical conditions), discussion with consultants research and development director and boat dock operator, respiratory therapist, review of labs and imaging is 50 minutes. Living will/advanced directive/end of life care: Patient does not have living will or advanced directive. Daughter is next to kin. After discussion of benefits/risks procedures involved with full code, DNR CC arrest and DNR CC, the patient opted for DNR CC arrest with no intubation in the first 2 days but she changed her mind DNR CCA with intubation. Stated she does not want CPR. Microbiology Past 72 Hours 01/25/22 16:55 Urine Catheter - Myers Legionella Antigen - Final 01/25/22 16:55 Urine Catheter - Myers Streptococcus pneumoniae Antigen (M - Final 01/25/22 08:55 Mucosa - Nose Respiratory Panel (PCR) - Final Influenza A (Subtype H1) 01/24/22 11:30 Nasal Secretion SARS-CoV-2 & FLU Antigen (Rapid) - Final Laboratory Results 01/25/22 04:15: Cortisol 92.20 H 01/25/22 04:15: Free T4 1.36 01/25/22 08:55: COVID-19 (ROSANA) Not Detected 01/26/22 03:48: Sodium 127 L, Potassium 4.8, Chloride 92 L, Carbon Dioxide 29.0, Anion Gap 6, BUN 22 H, Creatinine 0.54 L, Estim Creat Clear Calc 47.11, Est GFR (MDRD) Af Amer 144, Est GFR (MDRD) Non-Af 119, BUN/Creatinine Ratio 40.9 H, Glucose 102, Calcium 8.1 L, Magnesium 2.3 Clinical Impression(s) from Imaging Studies Chest X-Ray 01/24/22 11:34 IMPRESSION: Hyperexpanded lungs without a superimposed acute pulmonary process, no interval change Liver Ultrasound 01/24/22 20:53 IMPRESSION: Mass at the upper pole the right kidney suggesting neoplasm. CT scan recommended for further evaluation. Chest X-Ray 01/25/22 00:00 IMPRESSION: Stable mild cardiomegaly. No acute cardiopulmonary disease. 2D echo Sep 2021 Left ventricular systolic function is hyperdynamic. The estimated ejection fraction is 75 %. The left atrium is mildly enlarged. Trivial mitral valve insufficiency. Trivial tricuspid valve insufficiency. Right ventricular systolic pressure estimated to be 53 mmHg. Diastolic function is indeterminate. Agitated saline contrast study faintly positive for right to left interatrial shunt potentially compatible with a small PFO versus ASD. Late peaking spectral Doppler pattern near the left ventricular outflow track approaching 2 m/s (peak gradient 16 mmHg) appearing compatible with a hyperdynamic state. Charges/Coding Visit Charges Inpatient E&M: 84476 Subs Hosp L3
[2022-01-27] MEDS: Enoxaparin 60 MG/0.6 ML Syringe SC ×2 (10:21→20:08)
[2022-01-27] MEDS: Lidocaine 5% Patch 2 PATCH TOPICAL (10:21)
[2022-01-27] MEDS: Ceftriaxone 1 GM/50 ML BAG IV (10:48)
[2022-01-27] MEDS: Ondansetron 4 MG/2 ML Vial IV (12:07)
--- NOTE | 2022-01-27 13:29 | PCM.PN.INT ---
Assessment & Plan Assessment/Plan (1) Atrial fibrillation with rapid ventricular response: PLAN: Rate is better controlled with Cardizem drip and IV metoprolol Serial troponins No pulmonary edema so far. (2) History of peripheral arterial disease: PLAN: Currently stable (3) History of diabetes mellitus: PLAN: Management per primary (4) Acute on chronic respiratory failure with hypoxia and hypercapnia: PLAN: Severe COPD, uncertain reason for exacerbation, likely metabolic, no evidence of acute infection with clear chest x-ray Patient would not want intubation if necessary but does not want CPR patient's respiratory failure is multifactorial, she is a known severe CO2 retainer due to COPD, had worsening renal failure possibly with more metabolic acidosis. Possible lactic acidosis from peripheral vascular disease and hypoxemia Supportive care BiPAP ventilation at current settings of 450 times rate of 18 times PEEP of 7, weaning O2 from 50%., keep SPO2 between 90 and 94% Palliative care, she would be a good candidate for hospice. (5) BiPAP (biphasic positive airway pressure) dependence: PLAN: As above (6) Hyponatremia: PLAN: Managed by primary, 3% saline has been stopped. She is now on no fluids and will be adjusted as needed Sodium levels are > 125 now (7) CKD stage 3 due to type 2 diabetes mellitus: PLAN: Supportive care PLAN: Plan As above. Previously, Dr Arnold had discussed her advanced directives with the patient and her son and daughter, all were in agreement that she could have a trial of intubation if it becomes necessary. But no CPR. Subjective Subjective Patient feels much better today, on AVAPS at 450 x 18 x 7 of PEEP and 50%. Complains of severe back pain and asking for pain medication. Objective Data Objective Data Vital Signs: Vital Signs Temp Pulse Resp BP Pulse Ox O2 Del Method O2 Flow Rate 37.2 C 104 H 20 H 115/65 99 Bi-pap 4 01/27/22 11:00 01/27/22 11:00 01/27/22 11:00 01/27/22 11:00 01/27/22 11:00 01/27/22 11:00 01/26/22 07:26 FiO2 35 01/27/22 11:00 Oxygen Flow Rate (L/min) 4 Oxygen Delivery Method Bi-pap Weight: 60 kg Body Mass Index (BMI) 26.6 Intake & Output: Intake and Output for Last 24 Hours 12/01/26/22 01/27/22 23:59 23:59 23:59 Intake Total 1548.33 / 1548.33 1101.08 / 1106.08 552.50 / 552.50 Output Total 350 / 350 1475 / 1475 250 / 250 Balance 1198.33 / 1198.33 -373.92 / -368.92 302.50 / 302.50 Lab / Micro Data Result Diagrams: 01/25/22 04:15 01/27/22 04:00 Labs: Laboratory Results - last 24 hr 01/26/22 12:35: Sodium 128 L 01/26/22 16:40: Sodium 127 L, Potassium 4.1, Chloride 91 L, Carbon Dioxide 29.0, Anion Gap 7, BUN 24 H, Creatinine 0.75, Estim Creat Clear Calc 50.76, Est GFR (MDRD) Af Amer 98, Est GFR (MDRD) Non-Af 81, BUN/Creatinine Ratio 32.0 H, Glucose 259 H, Calcium 7.9 L 01/26/22 20:50: Sodium 128 L 01/26/22 23:25: Sodium 126 L 01/27/22 04:00: Sodium 128 L, Potassium 4.1, Chloride 90 L, Carbon Dioxide 31.0, Anion Gap 7, BUN 20 H, Creatinine 0.59, Estim Creat Clear Calc 50.76, Est GFR (MDRD) Af Amer 130, Est GFR (MDRD) Non-Af 107, BUN/Creatinine Ratio 33.9 H, Glucose 180 H, Calcium 8.3 L Micro: Microbiology 01/25/22 16:55 Urine Catheter - Myers Legionella Antigen - Final 01/25/22 16:55 Urine Catheter - Myers Streptococcus pneumoniae Antigen (M - Final 01/25/22 08:55 Mucosa - Nose Respiratory Panel (PCR) - Final Influenza A (Subtype H1) 01/24/22 11:30 Nasal Secretion SARS-CoV-2 & FLU Antigen (Rapid) - Final Radiography Diagnostic Testing: Radiology Impression Chest X-Ray 01/26/22 09:55 IMPRESSION: Scoliosis. Interval visualization of a small pleural effusion. Minimal right lower lobe atelectasis. Electronically Signed: Cesilia Hill MD at 16:21 EST , Physical Exam Narrative Well-developed chronically ill-appearing woman with moderately labored respirations on BiPAP. HEENT: Mucous membranes dry, no thrush, BiPAP on Neck is supple, JVD is present Lungs are markedly diminished bilaterally with fine expiratory wheezes in all lung [place], prolonged expiratory phase, no rales or rhonchi. No consolidation, adequate cough strength, no sputum expectorated Abdomen is soft nontender Extremities have no clubbing cyanosis or edema Neuro exam is nonfocal Skin is warm and dry. Charges/Coding Addendum Addendum: critical care time = 31 minutes billing code [id number]
--- NOTE | 2022-01-27 15:39 | CPS ---
Pt only tolerated the Airvo for 10 minutes. Placed back on Bipap.
--- NOTE | 2022-01-27 15:40 | PCM.PN.REN ---
Subjective Subjective No new events Objective Data Objective Data Vital Signs: Vital Signs Temp Pulse Resp BP Pulse Ox O2 Del Method O2 Flow Rate 99.3 F H 107 H 30 H 108/85 H 90 Bi-pap 4 01/27/22 13:00 01/27/22 13:00 01/27/22 13:00 01/27/22 13:00 01/27/22 13:00 01/27/22 13:00 01/26/22 07:26 FiO2 35 01/27/22 13:00 Oxygen Flow Rate (L/min) 4 Oxygen Delivery Method Bi-pap Weight: 60 kg Body Mass Index (BMI) 26.6 Intake & Output: Intake and Output for Last 24 Hours 01/25/22 01/26/22 01/27/22 23:59 23:59 23:59 Intake Total 1548.33 / 1548.33 1101.08 / 1106.08 582.50 / 582.50 Output Total 350 / 350 1475 / 1475 400 / 400 Balance 1198.33 / 1198.33 -373.92 / -368.92 182.50 / 182.50 Lab / Micro Data Result Diagrams: 01/25/22 04:15 01/27/22 04:00 Labs: Laboratory Results - last 24 hr 01/26/22 16:40: Sodium 127 L, Potassium 4.1, Chloride 91 L, Carbon Dioxide 29.0, Anion Gap 7, BUN 24 H, Creatinine 0.75, Estim Creat Clear Calc 50.76, Est GFR (MDRD) Af Amer 98, Est GFR (MDRD) Non-Af 81, BUN/Creatinine Ratio 32.0 H, Glucose 259 H, Calcium 7.9 L 01/26/22 20:50: Sodium 128 L 01/26/22 23:25: Sodium 126 L 01/27/22 04:00: Sodium 128 L, Potassium 4.1, Chloride 90 L, Carbon Dioxide 31.0, Anion Gap 7, BUN 20 H, Creatinine 0.59, Estim Creat Clear Calc 50.76, Est GFR (MDRD) Af Amer 130, Est GFR (MDRD) Non-Af 107, BUN/Creatinine Ratio 33.9 H, Glucose 180 H, Calcium 8.3 L Micro: Microbiology 01/25/22 16:55 Urine Catheter - Myers Legionella Antigen - Final 01/25/22 16:55 Urine Catheter - Myers Streptococcus pneumoniae Antigen (M - Final 01/25/22 08:55 Mucosa - Nose Respiratory Panel (PCR) - Final Influenza A (Subtype H1) 01/24/22 11:30 Nasal Secretion SARS-CoV-2 & FLU Antigen (Rapid) - Final Radiography Diagnostic Testing: Radiology Impression Chest X-Ray 01/26/22 09:55 IMPRESSION: Scoliosis. Interval visualization of a small pleural effusion. Minimal right lower lobe atelectasis. Electronically Signed: Cesilia Hill MD at 16:21 EST , Physical Exam Narrative General: Alert and oriented x3. HEENT: She is on BiPAP. PERRLA, EOMI. Hearing is intact. Cardiovascular: Irregularly irregular S1, S2. There is no rubs, murmurs or gallops. Lungs: Chest is barreled. Diminished breath sounds posteriorly, faint rhonchi noted Abdomen: Normal bowel sounds, soft, nontender. Extremities: Status post left AKA. There is no edema of the right lower extremity. Musculoskeletal: The patient is kyphotic. There is no joint swelling. Skin: Warm and dry, no rash. Assessment & Plan Assessment/Plan (1) Hyponatremia: (2) Essential (primary) hypertension: (3) COPD (chronic obstructive pulmonary disease): QUALIFIERS: COPD type: unspecified COPD Qualified Code(s): J44.9 - Chronic obstructive pulmonary disease, unspecified (4) Atrial fibrillation with rapid ventricular response: PLAN: Plan - Suspect hyponatremia is hypotonic hyponatremia from volume/solute depletion due to poor oral intake and nausea/vomiting. Sodium on admission 120, sodium dropped to 114 and started on 3% saline at 50 mL an hour. Serum sodium improved, close to normal now. Off hypertonic saline. Asymptomatic. No need for frequent sodium checks.
--- NOTE | 2022-01-27 15:54 | NURSING ---
Spoke with patient and son about the problems related to being BIPAP dependent. Answered all questions asked by the patient and son. Patient firmly stated that she did not want to be intubated and if hospice is the next step, she is okay with that. After this RN spoke with Dr. Trujillo, this RN asked patient if she was wanting hospice to be consulted and she stated that would be okay. This RN also asked patient if it would be okay to notify her children about the hospice consult, to which she stated You can call my son but not my daughter. No number on file for son at this time and patient is unable to provide it. Will wait till son comes back to get his number and tell him about hospice consult. Social work into see patient, to which patient told that she does not want any talk of hospice tonight because her grandchildren are coming. This RN spoke with social work and decided to contact hospice tomorrow about consult.
--- NOTE | 2022-01-27 16:37 | CASEMGMT ---
SW was contacted by community mental health social worker from ICU stating that patient had requested hospice and Dr. Blackburn had ordered consult for hospice. YASMIN and YASMIN Timmons met with patient. Patient immediately stated that her grandchildren were coming in to see her and she did not want any talk about hospice. YASMIN educated patient that the process is that the hospital will call hospice and then the liaison will meet with her and any family and be educated on hospice and the services they provide. Patient said that she had no preference regarding hospice and social security benefits interviewer advised that [facility] is the only hospice that has privileges at [facility] and patient said that was fine for staff to make referral to [facility]. Patient said that she does not want referral made tonight but only tomorrow. Patient said that she wants her son, Newton, to be contacted however she does not know his contact information. YASMIN updated patient's RN Rodney and advised him that patient does not want hospice called tonight. Rodney said that patient has changed her DNR orders since arriving to the hospital. YASMIN noted that since patient has changed her mind regarding her DNR orders that this is not the time to discuss advanced directives and if patient is interested it can be pursued at a later date and/or with hospice. YASMIN spoke to ELIJAH Stevens about there is no social work staff available on Saturday to make a referral to hospice. Rodney said that staff does not need to make a referral to hospice tonight and they will wait till tomorrow to see how patient feels about hospice referral tomorrow. Rodney will also attempt to speak to patient's son's and get his contact number for [facility]. Plan: NO social work needs tonight. staffing consultant will follow up with patient on Saturday to see if patient wants hospice referral and voiced that staff can make referral for patient on Saturday if needed. Advanced Directives deferred at this time Shanice MEEKS
[2022-01-27] MEDS: Morphine 2 MG/ML Syringe IV (20:08)
[2022-01-28] VITALS (30 sets, daily range): BP systolic 92–135; BP diastolic 34–75; PULSE 84–116; RESP 14–31; TEMP 36.8–37.5; O2SAT 89–98
[2022-01-28] MEDS: Ondansetron 4 MG/2 ML Vial IV ×3 (03:29→20:41)
[2022-01-28] MEDS: 0.9% Saline Lock 10 ML Syringe IV ×5 (03:29→20:41)
[2022-01-28] MEDS: Morphine 2 MG/ML Syringe IV ×4 (03:29→20:31)
--- NOTE | 2022-01-28 07:53 | PCM.PN.HOSP ---
Subjective Subjective Follow-up for acute on chronic combined respiratory failure Patient could not get off BiPAP almost for 4 days. Objective Data Objective Data Vital Signs: Vital Signs Temp Pulse Resp BP Pulse Ox O2 Del Method O2 Flow Rate 98.7 F 86 30 H 112/61 94 Bi-pap 60 01/28/22 06:00 01/28/22 07:43 01/28/22 07:43 01/28/22 06:00 01/28/22 07:43 01/28/22 06:00 01/27/22 12:30 FiO2 35 01/28/22 07:43 Oxygen Flow Rate (L/min) 60 Oxygen Delivery Method Bi-pap Weight: 129 lb 3.054 oz Body Mass Index (BMI) 26.6 Intake & Output: Intake and Output for Last 24 Hours 01/26/22 01/27/22 01/28/22 23:59 23:59 23:59 Intake Total 1101.08 / 1106.08 694.25 / 704.25 75.67 / 75.67 Output Total 1475 / 1475 600 / 600 50 / 50 Balance -373.92 / -368.92 94.25 / 104.25 25.67 / 25.67 Lab / Micro Data Result Diagrams: 01/25/22 04:15 01/27/22 04:00 Micro: Microbiology 01/25/22 16:55 Urine Catheter - Myers Legionella Antigen - Final 01/25/22 16:55 Urine Catheter - Myers Streptococcus pneumoniae Antigen (M - Final 01/25/22 08:55 Mucosa - Nose Respiratory Panel (PCR) - Final Influenza A (Subtype H1) 01/24/22 11:30 Nasal Secretion SARS-CoV-2 & FLU Antigen (Rapid) - Final Physical Exam Narrative Patient was on BiPAP. Patient's son and daughter Physical exam General: Awake, sitting position, on BiPAP, mild respiratory distress. Oriented x3. HEENT: Atraumatic, PERRLA, EOMI, Normocephalic Oral: On BiPAP Neck: Supple, No JVD, Negative Carotid Bruits Lungs: Air entry severely diminished in bilateral lungs. Tachypnea, hypoxia. Expiratory rhonchi no crepitation/rhonchi Cardiovascular: Sinus tachycardia, Normal S1, Normal S2, No murmurs Abdomen: Soft, nondistended. Midline abdominal scar. No tenderness, no guarding/rigidity. Bowel Sounds sluggish. : No renal angle tenderness. No suprapubic tenderness. Extremities: No edema, Capillary Refill Less than 3 Seconds Skin: No rashes, No breakdown Musculoskeletal: No Tenderness to Palpation of Joints or Extremities. Moderate atrophy of muscles of extremities. Left AKA Neurological: Cranial nerves II-XII grossly intact, DTR 2+/4 and Symmetrical Psych/Mental Status: Ill-appearing, distress. Assessment & Plan Assessment/Plan (1) Atrial fibrillation with rapid ventricular response: PLAN: Plan This is a 71-year-old female multiple comorbidities were admitted with narrow complex tachycardia along with abdominal pain. 1. Narrow complex tachycardia, started with SVT and then A. fib with RVR: Patient is being admitted in PCU. EKG shows SVT A. fib with RVR with ST depression in V3 to V6. Serial troponin enzymes ordered. Last echo in September 2021 reported EF 75% hyperdynamic LV, LA mildly depressed. Small PFO stenosis ASD on saline contrast study. Patient is on Cardizem drip at 10 mg/h. Metoprolol 5 mg IV as needed every 6 hourly ordered for heart rate more than 120/min. Started on Lovenox 1 milligram per KG body weight. Patient had chest pressure at home which is resolved. Potassium 3.5, low normal. Serum magnesium and phosphorus level normal. Try to keep potassium, around 4 and magnesium around 2.0 mg/dL 01/25: Narrow complex tachycardia resolved. Currently patient 85 bpm. 01/26: Patient currently sinus tachycardia heart rate 125 to 138/min mainly driven by respiratory failure 01/27: Patient went into A. fib RVR last night and started on Cardizem drip. On Lovenox 60 mg subcu every 12 hourly. 2.? Acute on chronic combined hypercarbic. Hypoxic respiratory failure: Although patient patient in mild respiratory distress tachypnea as by EMS in ED, oxygen requirement is 4 L at home. 01/25: Acute on chronic combined hypoxic and hypercarbic respiratory failure after admission: Patient is chronic CO2 retainer. Previous ABG also showed PCO2 79.7 in May 2019. On reel fed printer on 01/25, patient had respiratory distress with RUQ pain. ABG showed high respiratory acidosis with pH 7.02, PCO2 120 and patient was put on BiPAP. Repeat ABG done in the morning on AVAPS 50% FiO2, PEEP 10 shows pH 7.2 0/76/126. I discussed with laborer cook house Dr. Benton and we agreed that patient is DNR CC arrest with no intubation and can be managed on NIPPV. Patient to continue on AVAPS and transition to Airvo on . Continue bronchodilator and IV Solu-Medrol. Patient also had nausea and could not had Zithromax therefore changed to doxycycline. Exact etiology is unclear. Repeat chest x-ray does not show acute cardiopulmonary abnormality. Respiratory panel pending. SARS-CoV-2 flu antigen negative. Urinary antigens and COVID-19 PCR. Empirically started on IV ceftriaxone and Zithromax. 01/26: Yesterday, I transferred patient to in the context of for severe hyponatremia and respiratory failure. Patient could not get off BiPAP since yesterday morning more than 24 hours. Earlier for last 2 days patient said she did not want intubation. As per night nursing staff, family had disagreement, daughters wanted full code but son wanted to follow her wish which was DNRCC no intubation. In the morning today she changed her mind and want to be DNR CCA with intubation. She still does not want CPR. Patient's nighttime RN and I confirmed with the patient. I talked to the patient's daughter Mrs. Mayte Mixon and spent good time explaining her medical disease, physical and functional capacity and poor prognosis. She will talk to her brother and will let us know. I told her that she does not have good quality of life or functional capacity. She has multiple organ dysfunctions. I suggested palliative with hospice would be a good option for her. 01/27: Dependent on BiPAP. Cannot get off BiPAP. Patient is appropriate for hospice care but patient and family has to make decision. 01/28: Patient is stated she wants to go. Family members on board for hospice care. Hospice care consulted most probably will need inpatient hospice care 3. Hypotonic hypovolemic hyponatremia with CKD stage IIIa with diabetic nephropathy: Sodium is 120. Patient looks severely dehydrated. On IV fluid normal saline. Discussed with the cargo and container inspector. TSH low at 0.33 Free T4 1.36. Cortisol 92 high. Lipid profile within normal limit. Creatinine normal estimated creatinine clearance 57/min, But urine shows proteinuria which is chronic. 01/26: Sodium improved from 120, 114, 122-1 27. Hypertonic 3% saline discontinued. Machine Or Machinery Mechanic managing hypertonic saline 01/27: Serum sodium is 127, discussed with the cargo and container inspector yesterday. Patient was started on D5W as there was acute rise in sodium about 13 mEq in 24 hours. Patient did not had any acute change in mental status. 01/28: Serum sodium is 128. 3.? DM type II: Accu-Chek H&H's and cover with [place] sliding scale. Glucose is 160 01/26: Glucose 102. 01/28: Glucose is high. Started on Lantus 10 units twice daily. 4.? Acute on chronic abdominal pain with history of chronic mesenteric ischemia, peripheral arterial disease, history of AAA status post graft, CVA and ex-smoker: Patient was last admitted in September 2021 for abdominal pain. At that time patient was seen by tubular products fabricator and vascular surgeon. 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 As per vascular surgery note, her grafts were patent. She also history of bilateral femoral endarterectomy, bilateral common and external iliac stents. She quit smoking in February 2013. Patient is on aspirin. Hold Plavix as patient is started on Lovenox therapeutic dose Continue Lipitor. 5.? GERD on PPI. 6. DVT high risk: On therapeutic dose of Lovenox Total time of the visit including total time spent in counseling or coordination of care, (more than 50% of the total time, spent in obtaining medical information from nurses and other ancillary care providers,explaining to the patient about labs, imaging, diagnosis and management of active complex medical conditions), discussion with consultants laborer cook house and cargo and container inspector, respiratory therapist, review of labs and imaging is 50 minutes. Living will/advanced directive/end of life care: Patient does not have living will or advanced directive. Daughter is next to kin. After discussion of benefits/risks procedures involved with full code, DNR CC arrest and DNR CC, the patient opted for DNR CC arrest with no intubation in the first 2 days but she changed her mind DNR CCA with intubation. Stated she does not want CPR. Microbiology Past 72 Hours 01/25/22 16:55 Urine Catheter - Myers Legionella Antigen - Final 01/25/22 16:55 Urine Catheter - Myers Streptococcus pneumoniae Antigen (M - Final 01/25/22 08:55 Mucosa - Nose Respiratory Panel (PCR) - Final Influenza A (Subtype H1) 01/24/22 11:30 Nasal Secretion SARS-CoV-2 & FLU Antigen (Rapid) - Final Laboratory Results 01/25/22 04:15: Cortisol 92.20 H 01/25/22 04:15: Free T4 1.36 01/25/22 08:55: COVID-19 (ROSANA) Not Detected 01/26/22 03:48: Sodium 127 L, Potassium 4.8, Chloride 92 L, Carbon Dioxide 29.0, Anion Gap 6, BUN 22 H, Creatinine 0.54 L, Estim Creat Clear Calc 47.11, Est GFR (MDRD) Af Amer 144, Est GFR (MDRD) Non-Af 119, BUN/Creatinine Ratio 40.9 H, Glucose 102, Calcium 8.1 L, Magnesium 2.3 Clinical Impression(s) from Imaging Studies Chest X-Ray 01/24/22 11:34 IMPRESSION: Hyperexpanded lungs without a superimposed acute pulmonary process, no interval change Liver Ultrasound 01/24/22 20:53 IMPRESSION: Mass at the upper pole the right kidney suggesting neoplasm. CT scan recommended for further evaluation. Chest X-Ray 01/25/22 00:00 IMPRESSION: Stable mild cardiomegaly. No acute cardiopulmonary disease. 2D echo Sep 2021 Left ventricular systolic function is hyperdynamic. The estimated ejection fraction is 75 %. The left atrium is mildly enlarged. Trivial mitral valve insufficiency. Trivial tricuspid valve insufficiency. Right ventricular systolic pressure estimated to be 53 mmHg. Diastolic function is indeterminate. Agitated saline contrast study faintly positive for right to left interatrial shunt potentially compatible with a small PFO versus ASD. Late peaking spectral Doppler pattern near the left ventricular outflow track approaching 2 m/s (peak gradient 16 mmHg) appearing compatible with a hyperdynamic state. Charges/Coding Visit Charges Inpatient E&M: 43984 Subs Hosp L3
[2022-01-28] MEDS: Enoxaparin 60 MG/0.6 ML Syringe SC ×2 (08:09→20:31)
[2022-01-28] MEDS: Lidocaine 5% Patch 2 PATCH TOPICAL (10:30)
[2022-01-28] MEDS: Ceftriaxone 1 GM/50 ML BAG IV (12:30)
[2022-01-28 18:15] LABS: Bedside Glucose 100 mg/dL (74-106)
[2022-01-28 20:56] LABS: Bedside Glucose 123 mg/dL (74-106)
[2022-01-29] VITALS (38 sets, daily range): BP systolic 82–135; BP diastolic 38–95; PULSE 76–114; RESP 11–26; TEMP 36.4–37.3; O2SAT 91–99
[2022-01-29] MEDS: 0.9% Saline Lock 10 ML Syringe IV ×6 (00:38→22:48)
[2022-01-29] MEDS: Morphine 2 MG/ML Syringe IV ×6 (00:38→22:41)
--- NOTE | 2022-01-29 00:51 | NURSING ---
patient declining mouth swabs but asking for water. Removed bipap and applied 5L NC, pt tolerated well, SpO2 remained >92%. Pt was off bipap for approximately 20 minutes without difficulty.
[2022-01-29 03:25] LABS: Bedside Glucose 106 mg/dL (74-106)
[2022-01-29] MEDS: Ondansetron 4 MG/2 ML Vial IV ×3 (04:11→20:25)
[2022-01-29 07:06] LABS: Bedside Glucose 107 mg/dL (74-106)
[2022-01-29] MEDS: Aspirin E.C. 81 MG Tablet PO (08:56)
[2022-01-29] MEDS: Lidocaine 5% Patch 2 PATCH TOPICAL (09:01)
[2022-01-29] MEDS: Enoxaparin 60 MG/0.6 ML Syringe SC ×2 (09:04→21:39)
[2022-01-29] MEDS: NYSTATIN 500,000 UNIT/5 ML UDC 500000 UNIT PO ×4 (09:05→21:38)
[2022-01-29] MEDS: Oseltamivir Phosphate 75 MG Capsule PO (09:06)
[2022-01-29] MEDS: Ensure Plus High Protein 120 ML LIQUID PO ×2 (09:11→21:47)
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
[2022-01-29] MEDS: Ceftriaxone 1 GM/50 ML BAG IV (09:25)
[2022-01-29 10:11] LABS: Bedside Glucose 140 mg/dL (74-106)
--- NOTE | 2022-01-29 10:32 | DCINST_ITS ---
Discharge Instructions Diet Discharge Diet: No restrictions Activity Discharge Activity: - (Discharged to inpatient hospice care.) Weight Bearing Status: Weight bearing as tolerated Dressing / Incision Call your doctor if you observe: - (Discharged to inpatient hospice care.) Follow Up Care Test Results: Test results from this visit will be discussed in further detail at your follow- up appointment, if applicable. Discharge Plan Admission Admit Date/Time: 01/24/22 13:48 Primary Reason for Your Visit: Acute on chronic combined respiratory failure. Hyponatremia. Attending Provider: David Trujillo Primary Care Provider: Irasema Jonas Consulting Providers: Nguyen Cunningham ; Eris Reyes ; Evie Jamison ; Demi Ceballos ; Lela Paz JOB TRAINING SPECIALIST ; Per Sanford ; Torres Benton ; Clayton Chu ; Pedrito Lunsford ; Dora Deal JOB TRAINING SPECIALIST ; Daniella Guerrero Instructions Additional Instructions / Restrictions: Discharge on BiPAP to inpatient hospice care. Discharge Orders/Prescriptions Prescriptions: New albuterol sulfate 2.5 mg /3 mL (0.083 %) Solution For Nebulization 2.5 mg inhalation Q2H PRN PRN (Reason: shortness of breath) Qty: 0 0RF polyethylene glycol 3350 17 gram Powder In Packet 17 g PO DAILY Qty: 0 0RF aspirin 81 mg Tablet,Delayed Release (Dr/Ec) 81 mg PO BREAKFAST Qty: 0 0RF mirtazapine 30 mg Tablet 30 mg PO QHS Qty: 0 0RF oseltamivir 75 mg Capsule 75 mg PO BID Qty: 0 0RF metoprolol tartrate 25 mg Tablet 75 mg PO TID Qty: 0 0RF Continued gabapentin 600 MG tablet 800 mg PO TIDCM albuterol sulfate 1 PUFF inhaler 2 puff inhalation Q6H PRN PRN (Reason: Sob &/Or Wheezing) budesonide 0.5 MG/2 ML suspension for nebulization 0.5 mg inhalation BID amlodipine 2.5 MG tablet 2.5 mg PO DAILY albuterol sulfate 2.5 MG/3 ML solution for nebulization 2.5 mg inhalation Q2H PRN PRN (Reason: DYSPNEA) 0RF acetaminophen 500 MG tablet 1,000 mg PO Q6H PRN PRN (Reason: Pain Score 1-3/10) 0RF ondansetron 4 MG tablet 4 mg PO Q8H PRN PRN (Reason: NAUSEA) Qty: 21 0RF promethazine 25 MG tablet 25 mg PO Q6H PRN PRN (Reason: Nausea) pantoprazole 40 MG tablet 40 mg PO DAILY atorvastatin 20 MG tablet 20 mg PO QHS clopidogrel 75 MG tablet 75 mg PO DAILY Trelegy Ellipta 100-62.5-25 mcg blister with device 1 inh INHALATION DAILY Label Comments: inhale 1 puff by mouth and INTO THE LUNGS once daily sennosides-docusate sodium [Stool Softener-Stimulant Laxat] 8.6-50 mg tablet 1 tab PO DAILY polyethylene glycol 3350 17 gram powder in packet 17 g PO BID Changed losartan 100 mg tablet 50 mg PO DAILY Qty: 30 0RF Discontinued metoprolol tartrate 50 mg tablet 50 mg PO TID aspirin 81 MG tablet,chewable 81 mg PO BID Qty: 20 0RF Referrals / Follow Up: Irasema Jonas MD [Primary Care Provider] - Disposition Disposition (needs filled in before D/C Order can be placed): Hospice in Medical Facility
[2022-01-29 12:40] LABS: Bedside Glucose 118 mg/dL (74-106)
--- NOTE | 2022-01-29 13:15 | CHAPLAIN ---
Type of Pastoral Visit _x__ Initial Visit ___ Follow-up Visit ___ On-call Visit ___ General Patient Visit ___ Spiritual Assessment ___ Family Conference ___ Bereavement ___ Rapid Response ___ Code Blue ___ Other (describe below) Pastoral Care Referral From _x__ Patient ___ Family ___ Nurse ___ Physician ___ Strategic Planner ___ Inspector Eyeglass Frames ___ Other (describe below) Sacrament/Intervention _x__ Active listening ___ Anointing ___ Yazdanism ___ Bereavement ___ Communion ___ Jumana exploration ___ ___ Life review _x__ Prayer ___ Reconciliation ___ Sacrament of Sick _x__ Supportive presence ___ Wedding ___ Other (describe below) Pastoral Comments patient has been seen before by this automotive repair technician in previous admissions; pt remembers this automotive repair technician and asks for prayer support; pt speaks clearly about her decision to go to hospice and states I am tired of feeling this way and yes, I am confident about this decision because I've gone through enough; son of patient and our aide were in the room at this time; pt states that she puts this in God's hands; further talk about what the hospice in patient facility is like and pt expresses looking forward to being there
--- NOTE | 2022-01-29 13:50 | PCM.DC.SUM ---
Providers Date of Admission: 01/24/22 Date of Discharge: 01/29/22 Primary Care Physician: Dr. Irasema Jonas MD Consultations 01/25/22 08:04 Consult: Nephrology Routine Consulting Provider: Daniella Guerrero Reason for Consult: Hyponatremia, SIADH?,RENAL MASS EMERGENT Consult: No MD Notified: Yes Date Notified: 01/25/22 Time Notified: 07:52 Method of Notification: Verbal 01/25/22 14:55 Consult: [facility]ullion / Pulmonary Medicine Routine Consulting Provider: [facility] Reason for Consult: Acute on chr resp failure, hypoNa EMERGENT Consult: No MD Notified: Yes Date Notified: 01/25/22 Time Notified: 14:55 Method of Notification: Text 01/27/22 15:35 Consult: Hospice / Palliative Care Routine Consulting Provider: [facility] Reason for Consult: Chronic Respiratory Failure, COPD EMERGENT Consult: No MD Notified: Yes Date Notified: 01/28/22 Time Notified: 13:43 Method of Notification: Verbal Reason For Visit: AVT/AFIB IWTH RVR Diagnosis Discharge Diagnosis (1) Atrial fibrillation with rapid ventricular response: Status: Acute Code(s): I48.91 - Unspecified atrial fibrillation Plan This is a 71-year-old female multiple comorbidities were admitted with narrow complex tachycardia along with abdominal pain. 1. Narrow complex tachycardia, started with SVT and then A. fib with RVR: Patient is being admitted in PCU. EKG shows SVT A. fib with RVR with ST depression in V3 to V6. Serial troponin enzymes ordered. Last echo in September 2021 reported EF 75% hyperdynamic LV, LA mildly depressed. Small PFO stenosis ASD on saline contrast study. Patient is on Cardizem drip at 10 mg/h. Metoprolol 5 mg IV as needed every 6 hourly ordered for heart rate more than 120/min. Started on Lovenox 1 milligram per KG body weight. Patient had chest pressure at home which is resolved. Potassium 3.5, low normal. Serum magnesium and phosphorus level normal. Try to keep potassium, around 4 and magnesium around 2.0 mg/dL 01/25: Narrow complex tachycardia resolved. Currently patient 85 bpm. 01/26: Patient currently sinus tachycardia heart rate 125 to 138/min mainly driven by respiratory failure 12/17: Patient went into A. fib RVR last night and started on Cardizem drip. On Lovenox 60 mg subcu every 12 hourly. 01/29: Patient is going to inpatient hospice care. Not a candidate for anticoagulation. But continue baby aspirin and Plavix as she has extensive peripheral arterial disease. 2.? Acute on chronic combined hypercarbic. Hypoxic respiratory failure: Although patient patient in mild respiratory distress tachypnea as by EMS in ED, oxygen requirement is 4 L at home. 01/25: Acute on chronic combined hypoxic and hypercarbic respiratory failure after admission: Patient is chronic CO2 retainer. Previous ABG also showed PCO2 79.7 in May 2019. On director of vocational training on 01/25, patient had respiratory distress with RUQ pain. ABG showed high respiratory acidosis with pH 7.02, PCO2 120 and patient was put on BiPAP. Repeat ABG done in the morning on AVAPS 50% FiO2, PEEP 10 shows pH 7.2 0/76/126. I discussed with leathersmith Dr. Benton and we agreed that patient is DNR CC arrest with no intubation and can be managed on NIPPV. Patient to continue on AVAPS and transition to Airvo on . Continue bronchodilator and IV Solu-Medrol. Patient also had nausea and could not had Zithromax therefore changed to doxycycline. Exact etiology is unclear. Repeat chest x-ray does not show acute cardiopulmonary abnormality. Respiratory panel pending. SARS-CoV-2 flu antigen negative. Urinary antigens and COVID-19 PCR. Empirically started on IV ceftriaxone and Zithromax. 01/26: Yesterday, I transferred patient to in the context of for severe hyponatremia and respiratory failure. Patient could not get off BiPAP since yesterday morning more than 24 hours. Earlier for last 2 days patient said she did not want intubation. As per night nursing staff, family had disagreement, daughters wanted full code but son wanted to follow her wish which was DNRCC no intubation. In the morning today she changed her mind and want to be DNR CCA with intubation. She still does not want CPR. Patient's nighttime RN and I confirmed with the patient. I talked to the patient's daughter Mrs. Mayte Mixon and spent good time explaining her medical disease, physical and functional capacity and poor prognosis. She will talk to her brother and will let us know. I told her that she does not have good quality of life or functional capacity. She has multiple organ dysfunctions. I suggested palliative with hospice would be a good option for her. 01/27: Dependent on BiPAP. Cannot get off BiPAP. Patient is appropriate for hospice care but patient and family has to make decision. 01/28: Patient is stated she wants to go. Family members on board for hospice care. Hospice care consulted most probably will need inpatient hospice care 01/29: Family had hospice meeting with the hospice nurse. Discussed with hospice nurse. Patient is being discharged to inpatient hospice care. IV antibiotic is discontinued. Patient can continue Tamiflu to complete her course of 5 days. 3. Hypotonic hypovolemic hyponatremia with CKD stage IIIa with diabetic nephropathy: Sodium is 120. Patient looks severely dehydrated. On IV fluid normal saline. Discussed with the hearing therapy teacher. TSH low at 0.33 Free T4 1.36. Cortisol 92 high. Lipid profile within normal limit. Creatinine normal estimated creatinine clearance 57/min, But urine shows proteinuria which is chronic. 01/26: Sodium improved from 120, 114, 122-1 27. Hypertonic 3% saline discontinued. Steel Shot Header Operator managing hypertonic saline 01/27: Serum sodium is 127, discussed with the hearing therapy teacher yesterday. Patient was started on D5W as there was acute rise in sodium about 13 mEq in 24 hours. Patient did not had any acute change in mental status. 01/28: Serum sodium is 128. 01/29: Patient family decided about hospice therefore no further blood work. 3.? DM type II: Accu-Chek H&H's and cover with [place] sliding scale. Glucose is 160 01/26: Glucose 102. 01/28: Glucose is high. Started on Lantus 10 units twice daily. 4.? Acute on chronic abdominal pain with history of chronic mesenteric ischemia, peripheral arterial disease, history of AAA status post graft, CVA and ex-smoker: Patient was last admitted in September 2021 for abdominal pain. At that time patient was seen by research laboratory technician and vascular surgeon. 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 As per vascular surgery note, her grafts were patent. She also history of bilateral femoral endarterectomy, bilateral common and external iliac stents. She quit smoking in February 2013. Patient is on aspirin. Hold Plavix as patient is started on Lovenox therapeutic dose Continue Lipitor. 5.? GERD on PPI. 6. DVT high risk: On therapeutic dose of Lovenox Discharge medication reconciliation done. Discharge follow-up instructions completed. Discharge process discussed with the patient and all questions were answered to patient's satisfaction. Discharge to inpatient hospice care. Total time spent, exact 35 minutes on discharge meds reconciliation, examination, coordination of care with nurses and ancillary staff, review of imaging and blood test and discussion with the patient on follow-up instructions. Living will/advanced directive/end of life care: Patient does not have living will or advanced directive. Daughter is next to kin. After discussion of benefits/risks procedures involved with full code, DNR CC arrest and DNR CC, the patient opted for DNR CC arrest with no intubation in the first 2 days but she changed her mind DNR CCA with intubation. Stated she does not want CPR. Microbiology Past 72 Hours 01/25/22 16:55 Urine Catheter - [place] Legionella Antigen - Final 01/25/22 16:55 Urine Catheter - [place] Streptococcus pneumoniae Antigen (M - Final 01/25/22 08:55 Mucosa - Nose Respiratory Panel (PCR) - Final Influenza A (Subtype H1) 01/24/22 11:30 Nasal Secretion SARS-CoV-2 & FLU Antigen (Rapid) - Final Laboratory Results Clinical Impression(s) from Imaging Studies Chest X-Ray 01/24/22 11:34 IMPRESSION: Hyperexpanded lungs without a superimposed acute pulmonary process, no interval change Liver Ultrasound 01/24/22 20:53 IMPRESSION: Mass at the upper pole the right kidney suggesting neoplasm. CT scan recommended for further evaluation. Chest X-Ray 01/25/22 00:00 IMPRESSION: Stable mild cardiomegaly. No acute cardiopulmonary disease. 2D echo Sep 2021 Left ventricular systolic function is hyperdynamic. The estimated ejection fraction is 75 %. The left atrium is mildly enlarged. Trivial mitral valve insufficiency. Trivial tricuspid valve insufficiency. Right ventricular systolic pressure estimated to be 53 mmHg. Diastolic function is indeterminate. Agitated saline contrast study faintly positive for right to left interatrial shunt potentially compatible with a small PFO versus ASD. Late peaking spectral Doppler pattern near the left ventricular outflow track approaching 2 m/s (peak gradient 16 mmHg) appearing compatible with a hyperdynamic state. Medications at Discharge Home Medications albuterol sulfate 90 mcg/actuation aerosol inhaler 2 puff inhalation Q6H PRN PRN Sob &/Or Wheezing 04/05/17 gabapentin 600 mg tablet 800 mg PO TIDCM PAIN 04/05/17 budesonide 0.5 mg/2 mL suspension for nebulization 0.5 mg inhalation BID COPD 08/21/17 amlodipine 2.5 mg tablet 2.5 mg PO DAILY bp 05/29/19 albuterol sulfate 2.5 mg/3 mL (0.083 %) solution for nebulization 2.5 mg (3 mL) inhalation Q2H PRN PRN DYSPNEA 06/01/19 acetaminophen 500 mg tablet 1,000 mg PO Q6H PRN PRN Pain Score 1-3/06/16/19 ondansetron 4 mg disintegrating tablet 4 mg PO Q8H PRN PRN NAUSEA #21 tabs 06/16/19 atorvastatin 20 mg tablet 20 mg PO QHS cholesterol 01/29/20 clopidogrel 75 mg tablet 75 mg PO DAILY antiplatelet 01/29/20 pantoprazole 40 mg tablet,delayed release 40 mg PO DAILY GERD 01/29/20 promethazine 25 mg tablet 25 mg PO Q6H PRN PRN Nausea 01/29/20 fluticasone fur. 100 mcg-umeclid 62.5 mcg-vilant 25 mcg inhalat.powder (Trelegy Ellipta) 1 inh inhalation DAILY copd 01/24/22 polyethylene glycol 3350 17 gram oral powder packet 17 g PO BID stool 01/24/22 sennosides 8.6 mg-docusate sodium 50 mg tablet (Stool Softener-Stimulant Laxative) 1 tab PO DAILY BM 01/24/22 albuterol sulfate 2.5 mg/3 mL (0.083 %) solution for nebulization 2.5 mg (3 mL) inhalation Q2H PRN PRN shortness of breath #0 mL 01/29/22 aspirin 81 mg tablet,delayed release 81 mg PO BREAKFAST #0 tabs 01/29/22 losartan 100 mg tablet 50 mg PO DAILY bp #30 tabs 01/29/22 metoprolol tartrate 25 mg tablet 75 mg PO TID #0 tabs 01/29/22 mirtazapine 30 mg tablet 30 mg PO QHS #0 tabs 01/29/22 oseltamivir 75 mg capsule 75 mg PO BID #0 caps 01/29/22 polyethylene glycol 3350 17 gram oral powder packet 17 g PO DAILY #0 ea 01/29/22 Weight / BMI Weight Weight: 130 lb 8.218 oz Body Mass Index (BMI) 26.6 ABG / Lab / Microbiology Data Result Diagrams: 01/25/22 04:15 01/27/22 04:00 Laboratory: Laboratory Results - last 24 hr 01/28/22 17:56: POC Glucose 100 01/28/22 20:32: POC Glucose 123 H 01/29/22 03:04: POC Glucose 106 01/29/22 06:46: POC Glucose 107 H 01/29/22 09:49: POC Glucose 140 H 01/29/22 12:19: POC Glucose 118 H Microbiology: Microbiology 01/25/22 16:55 Urine Catheter - [place] Legionella Antigen - Final 01/25/22 16:55 Urine Catheter - [place] Streptococcus pneumoniae Antigen (M - Final 01/25/22 08:55 Mucosa - Nose Respiratory Panel (PCR) - Final Influenza A (Subtype H1) 01/24/22 11:30 Nasal Secretion SARS-CoV-2 & FLU Antigen (Rapid) - Final D/C Instructions Discharge Diet: No restrictions Weight Bearing Status: Weight bearing as tolerated Call your doctor if you observe: - (Discharged to inpatient hospice care.) Meaningful Use Info Meaningful Use Diagnoses (Choose all that apply): None applicable Discharge Plan Admission Admit Date/Time: 01/24/22 13:48 Primary Reason for Your Visit: Acute on chronic combined respiratory failure. Hyponatremia. Attending Provider: David Trujillo Primary Care Provider: Irasema Jonas Consulting Providers: Nguyen Cunningham ; Eris Reyes ; Evie Jamison ; Demi Ceballos ; Lela Paz BRIQUETTER OPERATOR ; Per Sanford ; Torres Benton ; Clayton Chu ; Pedrito Lunsford ; Dora Deal BRIQUETTER OPERATOR ; Daniella Guerrero Instructions Additional Instructions / Restrictions: Discharge on BiPAP to inpatient hospice care. Discharge Orders/Prescriptions Prescriptions: New albuterol sulfate 2.5 mg /3 mL (0.083 %) Solution For Nebulization 2.5 mg inhalation Q2H PRN PRN (Reason: shortness of breath) Qty: 0 0RF polyethylene glycol 3350 17 gram Powder In Packet 17 g PO DAILY Qty: 0 0RF aspirin 81 mg Tablet,Delayed Release (Dr/Ec) 81 mg PO BREAKFAST Qty: 0 0RF mirtazapine 30 mg Tablet 30 mg PO QHS Qty: 0 0RF oseltamivir 75 mg Capsule 75 mg PO BID Qty: 0 0RF metoprolol tartrate 25 mg Tablet 75 mg PO TID Qty: 0 0RF Continued gabapentin 600 MG tablet 800 mg PO TIDCM albuterol sulfate 1 PUFF inhaler 2 puff inhalation Q6H PRN PRN (Reason: Sob &/Or Wheezing) budesonide 0.5 MG/2 ML suspension for nebulization 0.5 mg inhalation BID amlodipine 2.5 MG tablet 2.5 mg PO DAILY albuterol sulfate 2.5 MG/3 ML solution for nebulization 2.5 mg inhalation Q2H PRN PRN (Reason: DYSPNEA) 0RF acetaminophen 500 MG tablet 1,000 mg PO Q6H PRN PRN (Reason: Pain Score 1-3/10) 0RF ondansetron 4 MG tablet 4 mg PO Q8H PRN PRN (Reason: NAUSEA) Qty: 21 0RF promethazine 25 MG tablet 25 mg PO Q6H PRN PRN (Reason: Nausea) pantoprazole 40 MG tablet 40 mg PO DAILY atorvastatin 20 MG tablet 20 mg PO QHS clopidogrel 75 MG tablet 75 mg PO DAILY Trelegy Ellipta 100-62.5-25 mcg blister with device 1 inh INHALATION DAILY Label Comments: inhale 1 puff by mouth and INTO THE LUNGS once daily sennosides-docusate sodium [Stool Softener-Stimulant Laxat] 8.6-50 mg tablet 1 tab PO DAILY polyethylene glycol 3350 17 gram powder in packet 17 g PO BID Changed losartan 100 mg tablet 50 mg PO DAILY Qty: 30 0RF Discontinued metoprolol tartrate 50 mg tablet 50 mg PO TID aspirin 81 MG tablet,chewable 81 mg PO BID Qty: 20 0RF Referrals / Follow Up: Irasema Jonas MD [Primary Care Provider] - Disposition Disposition (needs filled in before D/C Order can be placed): Hospice in Medical Facility Charges/Coding Addendum Addendum: Please cancel the billing charge of progress note of today. Visit Charges Inpatient E&M: 35595 Disch Hosp
--- NOTE | 2022-01-29 16:04 | CASEMGMT ---
Hospice cannot take patient on bipap due to her being positive for flu. SW will talk with patient to see which long-term facility she would prefer. Plan: Patient will have to go to a alf on Hospice. Carolyn RUIZ
--- NOTE | 2022-01-29 18:29 | CASEMGMT ---
RN SUKHDEEP NOTE: E-mail to Carmela @ [facility] and referral cancelled. Michael VIRK RN CM
[2022-01-29 18:55] LABS: Bedside Glucose 119 mg/dL (74-106)
--- NOTE | 2022-01-29 19:00 | PCA ---
EMERGENCY DOCUMENTATION
--- NOTE | 2022-01-29 19:22 | NURSING ---
01/29/22@ 1922- Report called to ELIJAH Stout on PCU. Patient will be going to PCU room 106.
[2022-01-29] MEDS: Metoprolol Tartrate 25 MG Tablet 75 MG PO (21:37)
[2022-01-29] MEDS: Insulin Glargine-YFGN 100 UNIT/ML Pen 10 UNIT SC (21:40)
[2022-01-30] VITALS (12 sets, daily range): BP systolic 100–146; BP diastolic 52–92; PULSE 86–105; RESP 12–19; TEMP 36.6–37.1; O2SAT 95–98
--- NOTE | 2022-01-30 00:17 | NURSING ---
emergency documentation.
[2022-01-30 00:26] LABS: Bedside Glucose 119 mg/dL (74-106)
[2022-01-30] MEDS: Morphine 2 MG/ML Syringe IV ×3 (04:09→21:45)
[2022-01-30] MEDS: Ondansetron 4 MG/2 ML Vial IV (04:19)
[2022-01-30] MEDS: 0.9% Saline Lock 10 ML Syringe IV (04:20)
[2022-01-30] MEDS: Metoprolol Tartrate 25 MG Tablet 75 MG PO ×3 (06:10→21:47)
[2022-01-30] MEDS: Ensure Plus High Protein 120 ML LIQUID PO ×2 (06:22→17:27)
[2022-01-30] MEDS: proMETHazine 25 MG Tablet PO (07:07)
[2022-01-30 07:55] LABS: Bedside Glucose 109 mg/dL (74-106)
[2022-01-30] MEDS: Insulin Glargine-YFGN 100 UNIT/ML Pen 10 UNIT SC (10:02)
[2022-01-30] MEDS: Aspirin E.C. 81 MG Tablet PO (10:02)
[2022-01-30] MEDS: Lidocaine 5% Patch 2 PATCH TOPICAL (10:03)
[2022-01-30] MEDS: NYSTATIN 500,000 UNIT/5 ML UDC 500000 UNIT PO ×3 (10:04→21:39)
[2022-01-30] MEDS: Senna/Docusate Sodium 1 Tablet 2 TABLET PO (10:06)
[2022-01-30] MEDS: Oseltamivir Phosphate 75 MG Capsule PO ×2 (10:07→21:46)
[2022-01-30] MEDS: Enoxaparin 60 MG/0.6 ML Syringe SC ×2 (10:09→21:44)
[2022-01-30] MEDS: Ibuprofen 600 MG Tablet PO (11:39)
[2022-01-30] MEDS: Pantoprazole Sodium 40 MG Tablet PO (11:39)
--- NOTE | 2022-01-30 12:11 | CASEMGMT ---
Patient will need to go to a senior care on Hospice until she can go to the inpatient Hospice unit. SW met with patient and let her know this information. Patient thought she could stay at [facility] until the when she would be out of isolation. SW told patient she will need to go to a nursing facility until the and then she can be re-evaluated for the inpatient unit if that is what she would like. The patient was then in agreement with going to a facility. SW provided patient a list of senior living facility providers including quality and resource use data and consistent with patient?s preferred geographic region, medical needs, and insurance network were provided from the [employer] Guide. Patient will look over this list and SW will check back. SW spoke with Tosha at Hospice and let her know the plan. SW also confirmed that it is possible to re-evaluate the patient for the inpatient unit at a SNF. Tosha said it is, but SW should tell the facility up front. Carolyn Green DOGMAN/WOMAN JOSEPH
[2022-01-30 12:25] LABS: Bedside Glucose 106 mg/dL (74-106)
--- NOTE | 2022-01-30 13:53 | CASEMGMT ---
YASMIN met with patient to discuss her preference regarding placement. Patient said that [facility]. Shanelle, Discharge Swager Operator and YASMIN bell. Shanice MEEKS
--- NOTE | 2022-01-30 14:11 | CASEMGMT ---
Discharge Resourcing Consultant This telegraphic typewriter operator sent a referral to Pa[facility]. Cristina CARRILLO Restaurant And Bar Manager
--- NOTE | 2022-01-30 14:38 | PN.HOSP_ITS ---
Subjective Subjective No significant progress. Patient is still on the BiPAP gets really short of breath if off BiPAP for 10 to 15 minutes. Objective Data Objective Data Vital Signs: Vital Signs Temp Pulse Resp BP Pulse Ox O2 Del Method O2 Flow Rate 98.7 F 93 18 114/71 98 Bi-pap 6 01/30/22 13:14 01/30/22 14:10 01/30/22 13:14 01/30/22 14:10 01/30/22 13:14 01/30/22 14:26 01/30/22 12:00 FiO2 35 01/30/22 14:26 Oxygen Flow Rate (L/min) 6 Oxygen Delivery Method Bi-pap Weight: 132 lb 7.965 oz Body Mass Index (BMI) 26.6 Intake & Output: Intake and Output for Last 24 Hours 01/28/22 01/29/22 01/30/22 23:59 23:59 23:59 Intake Total 701.50 / 711.50 1565.84 / 1565.84 320 / 320 Output Total 380 / 380 800 / 800 450 / 450 Balance 321.50 / 331.50 765.84 / 765.84 -130 / -130 Lab / Micro Data Result Diagrams: 01/25/22 04:15 01/27/22 04:00 Labs: Laboratory Results - last 24 hr 01/29/22 18:34: POC Glucose 119 H 01/29/22 21:32: POC Glucose 119 H 01/30/22 06:09: POC Glucose 109 H 01/30/22 11:57: POC Glucose 106 Micro: Microbiology 01/25/22 16:55 Urine Catheter - Myers Legionella Antigen - Final 01/25/22 16:55 Urine Catheter - Myers Streptococcus pneumoniae Antigen (M - Final 01/25/22 08:55 Mucosa - Nose Respiratory Panel (PCR) - Final Influenza A (Subtype H1) 01/24/22 11:30 Nasal Secretion SARS-CoV-2 & FLU Antigen (Rapid) - Final Physical Exam Narrative Hospice service stated that patient can undergo hospice service until she is cleared from influenza A probably after Lori. Patient is moving bowel. Physical exam General: Awake, sitting position, on BiPAP, Oriented x3. Severe malnutrition HEENT: Atraumatic, PERRLA, EOMI, Normocephalic Oral: On BiPAP Neck: Supple, No JVD, Negative Carotid Bruits Chest wall/lungs: Kyphotic spine. Air entry severely diminished in bilateral lungs. hypoxia. Expiratory rhonchi no crepitation/rhonchi Cardiovascular: Sinus tachycardia, Normal S1, Normal S2, No murmurs Abdomen: Soft, nondistended. Midline abdominal scar. No tenderness, no guarding/rigidity. Bowel Sounds sluggish. : No renal angle tenderness. No suprapubic tenderness. Extremities: No edema, Capillary Refill Less than 3 Seconds Skin: No rashes, No breakdown Musculoskeletal: No Tenderness to Palpation of Joints or Extremities. Moderate atrophy of muscles of extremities. Left AKA Neurological: Cranial nerves II-XII grossly intact, DTR 2+/4 and Symmetrical Psych/Mental Status: Ill-appearing, distress. Assessment & Plan Assessment/Plan (1) Atrial fibrillation with rapid ventricular response: PLAN: Plan This is a 71-year-old female multiple comorbidities were admitted with narrow complex tachycardia along with abdominal pain. 1. Narrow complex tachycardia, started with SVT and then A. fib with RVR: Patient is being admitted in PCU. EKG shows SVT A. fib with RVR with ST depression in V3 to V6. Serial troponin enzymes ordered. Last echo in September 2021 reported EF 75% hyperdynamic LV, LA mildly depressed. Small PFO stenosis ASD on saline contrast study. Patient is on Cardizem drip at 10 mg/h. Metoprolol 5 mg IV as needed every 6 hourly ordered for heart rate more than 120/min. Started on Lovenox 1 milligram per KG body weight. Patient had chest pressure at home which is resolved. Potassium 3.5, low normal. Serum magnesium and phosphorus level normal. Try to keep potassium, around 4 and magnesium around 2.0 mg/dL 01/25: Narrow complex tachycardia resolved. Currently patient 85 bpm. 01/26: Patient currently sinus tachycardia heart rate 125 to 138/min mainly driven by respiratory failure 01/27: Patient went into A. fib RVR last night and started on Cardizem drip. On Lovenox 60 mg subcu every 12 hourly. 01/29: Patient is going to inpatient hospice care. Not a candidate for anticoa gulation. But continue baby aspirin and Plavix as she has extensive peripheral arterial disease. 2.? Acute on chronic combined hypercarbic. Hypoxic respiratory failure: Although patient patient in mild respiratory distress tachypnea as by EMS in ED, oxygen requirement is 4 L at home. 01/25: Acute on chronic combined hypoxic and hypercarbic respiratory failure after admission: Patient is chronic CO2 retainer. Previous ABG also showed PCO2 79.7 in May 2019. On hat body sorter on 01/25, patient had respiratory distress with RUQ pain. ABG showed high respiratory acidosis with pH 7.02, PCO2 120 and patient was put on BiPAP. Repeat ABG done in the morning on AVAPS 50% FiO2, PEEP 10 shows pH 7.2 0/76/126. I discussed with molding utility worker Dr. Benton and we agreed that patient is DNR CC arrest with no intubation and can be managed on NIPPV. Patient to continue on AVAPS and transition to Airvo on . Continue bronchodilator and IV Solu-Medrol. Patient also had nausea and could not had Zi thromax therefore changed to doxycycline. Exact etiology is unclear. Repeat chest x-ray does not show acute cardiopulmonary abnormality. Respiratory panel pending. SARS-CoV-2 flu antigen negative. Urinary antigens and COVID-19 PCR. Empirically started on IV ceftriaxone and Zithromax. 01/26: Yesterday, I transferred patient to in the context of for severe hyponatremia and respiratory failure. Patient could not get off BiPAP since yesterday morning more than 24 hours. Earlier for last 2 days patient said she did not want intubation. As per night nursing staff, family had disagreement, daughters wanted full code but son wanted to follow her wish which was DNRCC no intubation. In the morning today she changed her mind and want to be DNR CCA with intubation. She still does not want CPR. Patient's nighttime RN and I confirmed with the patient. I talked to the patient's daughter Mrs. Mayte Mixon and spent good time explaining her medical disease, physical and functional capacity and poor prognosis. She will talk to her brother and will let us know. I told her that she does not have good quality of life or functional capacity. She has multiple organ dysfunctions. I suggested palliative with hospice would be a good option for her. 01/27: Dependent on BiPAP. Cannot get off BiPAP. Patient is appropriate for hospice care but patient and family has to make decision. 01/28: Patient is stated she wants to go. Family members on board for hospice care. Hospice care consulted most probably will need inpatient hospice care 01/29: Family had hospice meeting with the hospice nurse. Discussed with hospice nurse. Patient is being discharged to inpatient hospice care. IV antibiotic is discontinued. Patient can continue Tamiflu to complete her course of 5 days. 01/30: Patient was supposed to be discharged to inpatient hospice care on 01/29 but because of influenza A positive she could not be discharged. Patient reluctant to go to [facility] but wanted inpatient hospice care. Discussed with foster care case managercustomer care manager worker in detail, might have to go to penitentiary. 3. Hypotonic hypovolemic hyponatremia with CKD stage IIIa with diabetic nephropathy: Sodium is 120. Patient looks severely dehydrated. On IV fluid normal saline. Discussed with the reel man. TSH low at 0.33 Free T4 1.36. Cortisol 92 high. Lipid profile within normal limit. Creatinine normal estimated creatinine clearance 57/min, But urine shows proteinuria which is chronic. 01/26: Sodium improved from 120, 114, 122-1 27. Hypertonic 3% saline discontinued. Director Of Acquisition Marketing managing hypertonic saline 01/27: Serum sodium is 127, discussed with the reel man yesterday. Patient was started on D5W as there was acute rise in sodium about 13 mEq in 24 hours. Patient did not had any acute change in mental status. 01/28: Serum sodium is 128. 01/29: Patient family decided about hospice therefore no further blood work. 3.? DM type II: Accu-Chek H&H's and cover with [place] sliding scale. Glucose is 160 01/26: Glucose 102. 01/28: Glucose is high. Started on Lantus 10 units twice daily. 4.? Acute on chronic abdominal pain with history of chronic mesenteric ischemia, peripheral arterial disease, history of AAA status post graft, CVA and ex- smoker: Patient was last admitted in September 2021 for abdominal pain. At that time patient was seen by geological sample tester and vascular surgeon. 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 As per vascular surgery note, her grafts were patent. She also history of bilateral femoral end arterectomy, bilateral common and external iliac stents. She quit smoking in February 2013. Patient is on aspirin. Hold Plavix as patient is started on Lovenox therapeutic dose Continue Lipitor. 5.? GERD on PPI. 6. DVT high risk: On therapeutic dose of Lovenox Discharge medication reconciliation done. Discharge follow-up instructions completed. Discharge process discussed with the patient and all questions were answered to patient's satisfaction. Discharge to inpatient hospice care. Total time spent, exact 35 minutes on discharge meds reconciliation, examination, coordination of care with nurses and ancillary staff, review of imaging and blood test and discussion with the patient on follow-up instructions. Living will/advanced directive/end of life care: Patient does not have living will or advanced directive. Daughter is next to kin. After discussion of benefits/risks procedures involved with full code, DNR CC arrest and DNR CC, the patient opted for DNR CC arrest with no intubation in the first 2 days but she changed her mind DNR CCA with intubation. Stated she does not want CPR. Microbiology Past 72 Hours 01/25/22 16:55 Urine Catheter - Myers Legionella Antigen - Final 01/25/22 16:55 Urine Catheter - Myers Streptococcus pneumoniae Antigen (M - Final 01/25/22 08:55 Mucosa - Nose Respiratory Panel (PCR) - Final Influenza A (Subtype H1) 01/24/22 11:30 Nasal Secretion SARS-CoV-2 & FLU Antigen (Rapid) - Final Laboratory Results Clinical Impression(s) from Imaging Studies Chest X-Ray 01/24/22 11:34 IMPRESSION: Hyperexpanded lungs without a superimposed acute pulmonary process, no interval change Liver Ultrasound 01/24/22 20:53 IMPRESSION: Mass at the upper pole the right kidney suggesting neoplasm. CT scan recommended for further evaluation. Chest X-Ray 01/25/22 00:00 IMPRESSION: Stable mild cardiomegaly. No acute cardiopulmonary disease. 2D echo Sep 2021 Left ventricular systolic function is hyperdynamic. The estimated ejection fraction is 75 %. The left atrium is mildly enlarged. Trivial mitral valve insufficiency. Trivial tricuspid valve insufficiency. Right ventricular systolic pressure estimated to be 53 mmHg. Diastolic function is indeterminate. Agitated saline contrast study faintly positive for right to left interatrial shunt potentially compatible with a small PFO versus ASD. Late peaking spectral Doppler pattern near the left ventricular outflow track approaching 2 m/s (peak gradient 16 mmHg) appearing compatible with a hyperdynamic state. Charges/Coding Visit Charges Inpatient E&M: 53599 Subs Hosp L2
--- NOTE | 2022-01-30 15:58 | CASEMGMT ---
Discharge Foreign Service Officer Paola from the [facility] reached out and patient has been accepted at the [facility]. YASMIN Leon notified. Cristina CARRILLO Final Inspector
[2022-01-30] MEDS: oxyCODONE 5 MG Tablet PO (17:27)
[2022-01-30 23:20] LABS: Bedside Glucose 105 mg/dL (74-106)
[2022-01-31] VITALS (10 sets, daily range): BP systolic 108–123; BP diastolic 55–94; PULSE 83–113; RESP 17–18; TEMP 36.3–36.6; O2SAT 97–100
[2022-01-31] MEDS: Metoprolol Tartrate 25 MG Tablet 75 MG PO ×2 (05:23→13:41)
[2022-01-31] MEDS: Morphine 2 MG/ML Syringe IV (05:26)
[2022-01-31 08:10] LABS: Bedside Glucose 86 mg/dL (74-106)
[2022-01-31 08:36] LABS: Bedside Glucose 87 mg/dL (74-106)
[2022-01-31] MEDS: Lidocaine 5% Patch 2 PATCH TOPICAL (09:10)
[2022-01-31] MEDS: NYSTATIN 500,000 UNIT/5 ML UDC 500000 UNIT PO (09:14)
[2022-01-31] MEDS: Senna/Docusate Sodium 1 Tablet 2 TABLET PO (09:15)
[2022-01-31] MEDS: Aspirin E.C. 81 MG Tablet PO (09:16)
[2022-01-31] MEDS: Pantoprazole Sodium 40 MG Tablet PO (09:16)
[2022-01-31] MEDS: Oseltamivir Phosphate 75 MG Capsule PO (09:17)
[2022-01-31] MEDS: Enoxaparin 60 MG/0.6 ML Syringe SC (09:26)
[2022-01-31] MEDS: Ensure Plus High Protein 120 ML LIQUID PO (09:30)
--- NOTE | 2022-01-31 10:16 | CASEMGMT ---
YASMIN called Paola at [facility] and left her a voice mail letting her know patient was originally interested in the inpatient Hospice unit. However, she has the flu and is on bipap which Hospice cannot do until patient is out of her quarantine days. YASMIN let Paola know patient may want to go to the inpatient Hospice unit when able. YASMIN also let Paola know SW will send bipap settings via [facility]. YASMIN called Tosha at Hospice and updated her. Plan: d/c to [facility] at [place] under [facility]. Physicians will transport patient. Carolyn RUIZ
--- NOTE | 2022-01-31 10:49 | PCM.TXEXTCAR ---
Diet Diet Order/Speech Therapy: 01/24/22 17:22 Diet: Cardiac - Heart Healthy Food consistency:: Regular Liquid Consistency:: Regular/Thin Dietary Modifications:: Consistent Carbohydrate Routine Orders/Code Status Suppository Type: Dulcolax 10mg Suppository Frequency: Daily PRN Code Status: DNRCC (DNR CC, hospice care.) Therapies Weight Bearing: Weight bearing as tolerated Extremity Affected:: Bilateral Lower Physical Therapy: Eval and Treat Occupational Therapy: Eval and Treat Speech Therapy: Eval and Treat Problem/Diagnosis (1) Atrial fibrillation with rapid ventricular response: Status: Acute Code(s): I48.91 - Unspecified atrial fibrillation Plan This is a 71-year-old female multiple comorbidities were admitted with narrow complex tachycardia along with abdominal pain. 1. Narrow complex tachycardia, started with SVT and then A. fib with RVR: Patient is being admitted in PCU. EKG shows SVT A. fib with RVR with ST depression in V3 to V6. Serial troponin enzymes ordered. Last echo in September 2021 reported EF 75% hyperdynamic LV, LA mildly depressed. Small PFO stenosis ASD on saline contrast study. Patient is on Cardizem drip at 10 mg/h. Metoprolol 5 mg IV as needed every 6 hourly ordered for heart rate more than 120/min. Started on Lovenox 1 milligram per KG body weight. Patient had chest pressure at home which is resolved. Potassium 3.5, low normal. Serum magnesium and phosphorus level normal. Try to keep potassium, around 4 and magnesium around 2.0 mg/dL 01/25: Narrow complex tachycardia resolved. Currently patient 85 bpm. 01/26: Patient currently sinus tachycardia heart rate 125 to 138/min mainly driven by respiratory failure 01/27: Patient went into A. fib RVR last night and started on Cardizem drip. On Lovenox 60 mg subcu every 12 hourly. 01/29: Patient is going to inpatient hospice care. Not a candidate for anticoagulation. But continue baby aspirin and Plavix as she has extensive peripheral arterial disease. 2.? Acute on chronic combined hypercarbic. Hypoxic respiratory failure: Although patient patient in mild respiratory distress tachypnea as by EMS in ED, oxygen requirement is 4 L at home. 01/25: Acute on chronic combined hypoxic and hypercarbic respiratory failure after admission: Patient is chronic CO2 retainer. Previous ABG also showed PCO2 79.7 in May 2019. On inspector and hand packager on 01/25, patient had respiratory distress with RUQ pain. ABG showed high respiratory acidosis with pH 7.02, PCO2 120 and patient was put on BiPAP. Repeat ABG done in the morning on AVAPS 50% FiO2, PEEP 10 shows pH 7.2 0/76/126. I discussed with program manager rn Dr. Benton and we agreed that patient is DNR CC arrest with no intubation and can be managed on NIPPV. Patient to continue on AVAPS and transition to Airvo on . Continue bronchodilator and IV Solu-Medrol. Patient also had nausea and could not had Zithromax therefore changed to doxycycline. Exact etiology is unclear. Repeat chest x-ray does not show acute cardiopulmonary abnormality. Respiratory panel pending. SARS-CoV-2 flu antigen negative. Urinary antigens and COVID-19 PCR. Empirically started on IV ceftriaxone and Zithromax. 01/26: Yesterday, I transferred patient to in the context of for severe hyponatremia and respiratory failure. Patient could not get off BiPAP since yesterday morning more than 24 hours. Earlier for last 2 days patient said she did not want intubation. As per night nursing staff, family had disagreement, daughters wanted full code but son wanted to follow her wish which was DNRCC no intubation. In the morning today she changed her mind and want to be DNR CCA with intubation. She still does not want CPR. Patient's nighttime RN and I confirmed with the patient. I talked to the patient's daughter Mrs. Mayte Mixon and spent good time explaining her medical disease, physical and functional capacity and poor prognosis. She will talk to her brother and will let us know. I told her that she does not have good quality of life or functional capacity. She has multiple organ dysfunctions. I suggested palliative with hospice would be a good option for her. 01/27: Dependent on BiPAP. Cannot get off BiPAP. Patient is appropriate for hospice care but patient and family has to make decision. 01/28: Patient is stated she wants to go. Family members on board for hospice care. Hospice care consulted most probably will need inpatient hospice care 01/29: Family had hospice meeting with the hospice nurse. Discussed with hospice nurse. Patient is being discharged to inpatient hospice care. IV antibiotic is discontinued. Patient can continue Tamiflu to complete her course of 5 days. 01/30: Patient was supposed to be discharged to inpatient hospice care on 01/29 but because of influenza A positive she could not be discharged. Patient reluctant to go to group home but wanted inpatient hospice care. Discussed with shoe casermanager labor delivery worker in detail, might have to go to group home. 3. Hypotonic hypovolemic hyponatremia with CKD stage IIIa with diabetic nephropathy: Sodium is 120. Patient looks severely dehydrated. On IV fluid normal saline. Discussed with the gang drill operator. TSH low at 0.33 Free T4 1.36. Cortisol 92 high. Lipid profile within normal limit. Creatinine normal estimated creatinine clearance 57/min, But urine shows proteinuria which is chronic. 01/26: Sodium improved from 120, 114, 122-1 27. Hypertonic 3% saline discontinued. Advanced Registered Nurse managing hypertonic saline 01/27: Serum sodium is 127, discussed with the gang drill operator yesterday. Patient was started on D5W as there was acute rise in sodium about 13 mEq in 24 hours. Patient did not had any acute change in mental status. 01/28: Serum sodium is 128. 01/29: Patient family decided about hospice therefore no further blood work. 3.? DM type II: Accu-Chek H&H's and cover with [place] sliding scale. Glucose is 160 01/26: Glucose 102. 01/28: Glucose is high. Started on Lantus 10 units twice daily. 4.? Acute on chronic abdominal pain with history of chronic mesenteric ischemia, peripheral arterial disease, history of AAA status post graft, CVA and ex-smoker: Patient was last admitted in September 2021 for abdominal pain. At that time patient was seen by railroad dining car steward/stewardess and vascular surgeon. 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 As per vascular surgery note, her grafts were patent. She also history of bilateral femoral endarterectomy, bilateral common and external iliac stents. She quit smoking in February 2013. Patient is on aspirin. Hold Plavix as patient is started on Lovenox therapeutic dose Continue Lipitor. 5.? GERD on PPI. 6. DVT high risk: On therapeutic dose of Lovenox Discharge medication reconciliation done. Discharge follow-up instructions completed. Discharge process discussed with the patient and all questions were answered to patient's satisfaction. Discharge to inpatient hospice care. Total time spent, exact 35 minutes on discharge meds reconciliation, examination, coordination of care with nurses and ancillary staff, review of imaging and blood test and discussion with the patient on follow-up instructions. Living will/advanced directive/end of life care: Patient does not have living will or advanced directive. Daughter is next to kin. After discussion of benefits/risks procedures involved with full code, DNR CC arrest and DNR CC, the patient opted for DNR CC arrest with no intubation in the first 2 days but she changed her mind DNR CCA with intubation. Stated she does not want CPR. Microbiology Past 72 Hours 01/25/22 16:55 Urine Catheter - Myers Legionella Antigen - Final 01/25/22 16:55 Urine Catheter - Myers Streptococcus pneumoniae Antigen (M - Final 01/25/22 08:55 Mucosa - Nose Respiratory Panel (PCR) - Final Influenza A (Subtype H1) 01/24/22 11:30 Nasal Secretion SARS-CoV-2 & FLU Antigen (Rapid) - Final Laboratory Results Clinical Impression(s) from Imaging Studies Chest X-Ray 01/24/22 11:34 IMPRESSION: Hyperexpanded lungs without a superimposed acute pulmonary process, no interval change Liver Ultrasound 01/24/22 20:53 IMPRESSION: Mass at the upper pole the right kidney suggesting neoplasm. CT scan recommended for further evaluation. Chest X-Ray 01/25/22 00:00 IMPRESSION: Stable mild cardiomegaly. No acute cardiopulmonary disease. 2D echo Sep 2021 Left ventricular systolic function is hyperdynamic. The estimated ejection fraction is 75 %. The left atrium is mildly enlarged. Trivial mitral valve insufficiency. Trivial tricuspid valve insufficiency. Right ventricular systolic pressure estimated to be 53 mmHg. Diastolic function is indeterminate. Agitated saline contrast study faintly positive for right to left interatrial shunt potentially compatible with a small PFO versus ASD. Late peaking spectral Doppler pattern near the left ventricular outflow track approaching 2 m/s (peak gradient 16 mmHg) appearing compatible with a hyperdynamic state. Allergies/Procedures Done in Hospital Allergies pregabalin [From Lyrica] Allergy (Verified 01/24/22 11:01) Rash duloxetine [From Cymbalta] Adverse Reaction (Verified 01/24/22 11:01) Vomiting sertraline HCl [From Zoloft] Adverse Reaction (Verified 01/24/22 11:01) MAKES ME CRAZY makes me crazy Type of Care/Length of Stay Estimated LOS: More Than 30 Days Type of Care Needed: Intermediate Rehab Potential: None Prognosis: None Additional Orders/Day of Discharge Day of Discharge: 01/31/22 Dietary and Speech Recommendations Dietitian Recommendations/Changes: Continue CCD, Cardiac diet to manage medical conditions. RD will discontinue potassium restriction due to normal potassium labs. Continue fluid restriction per MD. Discharge Plan Admission Admit Date/Time: 01/24/22 13:48 Primary Reason for Your Visit: Acute on chronic combined respiratory failure. Hyponatremia. Attending Provider: David Trujillo Primary Care Provider: Irasema Jonas Consulting Providers: Nguyen Cunningham ; Eris Reyes ; Evie Jamison ; Demi Ceballos ; Lela Paz ENTRY LEVEL WEB DEVELOPER ; Per Sanford ; Torres Benton ; Clayton Chu ; Pedrito Lunsford ; Dora Deal ENTRY LEVEL WEB DEVELOPER ; Daniella Guerrero Instructions Additional Instructions / Restrictions: Discharge on BiPAP. Will need to be evaluated for transfer to inpatient hospice care once he completes Tamiflu, total 6 doses left Discharge Orders/Prescriptions Prescriptions: New albuterol sulfate 2.5 mg /3 mL (0.083 %) Solution For Nebulization 2.5 mg inhalation Q2H PRN PRN (Reason: shortness of breath) Qty: 0 0RF polyethylene glycol 3350 17 gram Powder In Packet 17 g PO DAILY Qty: 0 0RF aspirin 81 mg Tablet,Delayed Release (Dr/Ec) 81 mg PO BREAKFAST Qty: 0 0RF mirtazapine 30 mg Tablet 30 mg PO QHS Qty: 0 0RF oseltamivir 75 mg Capsule 75 mg PO BID Qty: 0 0RF metoprolol tartrate 25 mg Tablet 75 mg PO TID Qty: 0 0RF Continued gabapentin 600 MG tablet 800 mg PO TIDCM albuterol sulfate 1 PUFF inhaler 2 puff inhalation Q6H PRN PRN (Reason: Sob &/Or Wheezing) budesonide 0.5 MG/2 ML suspension for nebulization 0.5 mg inhalation BID amlodipine 2.5 MG tablet 2.5 mg PO DAILY albuterol sulfate 2.5 MG/3 ML solution for nebulization 2.5 mg inhalation Q2H PRN PRN (Reason: DYSPNEA) 0RF acetaminophen 500 MG tablet 1,000 mg PO Q6H PRN PRN (Reason: Pain Score 1-3/10) 0RF ondansetron 4 MG tablet 4 mg PO Q8H PRN PRN (Reason: NAUSEA) Qty: 21 0RF promethazine 25 MG tablet 25 mg PO Q6H PRN PRN (Reason: Nausea) pantoprazole 40 MG tablet 40 mg PO DAILY atorvastatin 20 MG tablet 20 mg PO QHS clopidogrel 75 MG tablet 75 mg PO DAILY Trelegy Ellipta 100-62.5-25 mcg blister with device 1 inh INHALATION DAILY Label Comments: inhale 1 puff by mouth and INTO THE LUNGS once daily sennosides-docusate sodium [Stool Softener-Stimulant Laxat] 8.6-50 mg tablet 1 tab PO DAILY polyethylene glycol 3350 17 gram powder in packet 17 g PO BID Changed losartan 100 mg tablet 50 mg PO DAILY Qty: 30 0RF Discontinued metoprolol tartrate 50 mg tablet 50 mg PO TID aspirin 81 MG tablet,chewable 81 mg PO BID Qty: 20 0RF Referrals / Follow Up: Irasema Jonas MD [Primary Care Provider] - Disposition Disposition (needs filled in before D/C Order can be placed): [facility]
[2022-01-31 12:15] LABS: Bedside Glucose 106 mg/dL (74-106)
--- NOTE | 2022-01-31 12:55 | DS.PCM_ITS ---
Providers Date of Admission: 01/24/22 Date of Discharge: 01/31/22 Primary Care Physician: Dr. Irasema Jonas MD Consultations 01/25/22 08:04 Consult: Nephrology Routine Consulting Provider: Daniella Guerrero Reason for Consult: Hyponatremia, SIADH?,RENAL MASS EMERGENT Consult: No MD Notified: Yes Date Notified: 01/25/22 Time Notified: 07:52 Method of Notification: Verbal 01/25/22 14:55 Consult: Operations Intern / Pulmonary Medicine Routine Consulting Provider: [facility] Reason for Consult: Acute on chr resp failure, hypoNa EMERGENT Consult: No MD Notified: Yes Date Notified: 01/25/22 Time Notified: 14:55 Method of Notification: Text 01/27/22 15:35 Consult: Hospice / Palliative Care Routine Consulting Provider: [facility] Reason for Consult: Chronic Respiratory Failure, COPD EMERGENT Consult: No MD Notified: Yes Date Notified: 01/28/22 Time Notified: 13:43 Method of Notification: Verbal Reason For Visit: AVT/AFIB IWTH RVR Diagnosis Discharge Diagnosis (1) Atrial fibrillation with rapid ventricular response: Status: Acute Code(s): I48.91 - Unspecified atrial fibrillation Plan This is a 71-year-old female multiple comorbidities were admitted with narrow complex tachycardia along with abdominal pain. 1. Narrow complex tachycardia, started with SVT and then A. fib with RVR: Patient is being admitted in PCU. EKG shows SVT A. fib with RVR with ST depression in V3 to V6. Serial troponin enzymes ordered. Last echo in September 2021 reported EF 75% hyperdynamic LV, LA mildly depressed. Small PFO stenosis ASD on saline contrast study. Patient is on Cardizem drip at 10 mg/h. Metoprolol 5 mg IV as needed every 6 hourly ordered for heart rate more than 120/min. Started on Lovenox 1 milligram per KG body weight. Patient had chest pressure at home which is resolved. Potassium 3.5, low normal. Serum magnesium and phosphorus level normal. Try to keep potassium, around 4 and magnesium around 2.0 mg/dL 01/25: Narrow complex tachycardia resolved. Currently patient 85 bpm. 01/26: Patient currently sinus tachycardia heart rate 125 to 138/min mainly driven by respiratory failure 12/17: Patient went into A. fib RVR last night and started on Cardizem drip. On Lovenox 60 mg subcu every 12 hourly. 01/29: Patient is going to inpatient hospice care. Not a candidate for anticoa gulation. But continue baby aspirin and Plavix as she has extensive peripheral arterial disease. 2.? Acute on chronic combined hypercarbic. Hypoxic respiratory failure: Although patient patient in mild respiratory distress tachypnea as by EMS in ED, oxygen requirement is 4 L at home. 01/25: Acute on chronic combined hypoxic and hypercarbic respiratory failure after admission: Patient is chronic CO2 retainer. Previous ABG also showed PCO2 79.7 in May 2019. On comparator operator on 01/25, patient had respiratory distress with RUQ pain. ABG showed high respiratory acidosis with pH 7.02, PCO2 120 and patient was put on BiPAP. Repeat ABG done in the morning on AVAPS 50% FiO2, PEEP 10 shows pH 7.2 0/76/126. I discussed with tower control operator Dr. Benton and we agreed that patient is DNR CC arrest with no intubation and can be managed on NIPPV. Patient to continue on AVAPS and transition to Airvo on . Continue bronchodilator and IV Solu-Medrol. Patient also had nausea and could not had Zi thromax therefore changed to doxycycline. Exact etiology is unclear. Repeat chest x-ray does not show acute cardiopulmonary abnormality. Respiratory panel pending. SARS-CoV-2 flu antigen negative. Urinary antigens and COVID-19 PCR. Empirically started on IV ceftriaxone and Zithromax. 01/26: Yesterday, I transferred patient to in the context of for severe hyponatremia and respiratory failure. Patient could not get off BiPAP since yesterday morning more than 24 hours. Earlier for last 2 days patient said she did not want intubation. As per night nursing staff, family had disagreement, daughters wanted full code but son wanted to follow her wish which was DNRCC no intubation. In the morning today she changed her mind and want to be DNR CCA with intubation. She still does not want CPR. Patient's nighttime RN and I confirmed with the patient. I talked to the patient's daughter Mrs. Mayte Mixon and spent good time explaining her medical disease, physical and functional capacity and poor prognosis. She will talk to her brother and will let us know. I told her that she does not have good quality of life or functional capacity. She has multiple organ dysfunctions. I suggested palliative with hospice would be a good option for her. 01/27: Dependent on BiPAP. Cannot get off BiPAP. Patient is appropriate for hospice care but patient and family has to make decision. 01/28: Patient is stated she wants to go. Family members on board for hospice care. Hospice care consulted most probably will need inpatient hospice care 01/29: Family had hospice meeting with the hospice nurse. Discussed with hospice nurse. Patient is being discharged to inpatient hospice care. IV antibiotic is discontinued. Patient can continue Tamiflu to complete her course of 5 days. 01/31: Patient did not put BiPAP last night, refused.In the morning pulse ox 98% on 4 L of oxygen, 27% of FiO2. 01/30: Patient was supposed to be discharged to inpatient hospice care on 01/29 but because of influenza A positive she could not be discharged. Patient reluctant to go to custodial but wanted inpatient hospice care. Discussed with housing case managermanager credit worker in detail, might have to go to custodial. 01/31: Patient requires 6 more doses of Tamiflu and then she might get transferred to inpatient hospice care from SNF. 3. Hypotonic hypovolemic hyponatremia with CKD stage IIIa with diabetic nephropathy: Sodium is 120. Patient looks severely dehydrated. On IV fluid normal saline. Discussed with the bead supervisor. TSH low at 0.33 Free T4 1.36. Cortisol 92 high. Lipid profile within normal limit. Creatinine normal estimated creatinine clearance 57/min, But urine shows proteinuria which is chronic. 01/26: Sodium improved from 120, 114, 122-1 27. Hypertonic 3% saline discontinued. Can Filling And Closing Machine Tender managing hypertonic saline 01/27: Serum sodium is 127, discussed with the bead supervisor yesterday. Patient was started on D5W as there was acute rise in sodium about 13 mEq in 24 hours. Patient did not had any acute change in mental status. 01/28: Serum sodium is 128. 01/29: Patient family decided about hospice therefore no further blood work. 3.? DM type II: Accu-Chek H&H's and cover with [place] sliding scale. Glucose is 160 01/26: Glucose 102. 01/28: Glucose is high. Started on Lantus 10 units twice daily. 4.? Acute on chronic abdominal pain with history of chronic mesenteric ischemia, peripheral arterial disease, history of AAA status post graft, CVA and ex- smoker: Patient was last admitted in September 2021 for abdominal pain. At that time patient was seen by superintendent building and vascular surgeon. 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 As per vascular surgery note, her grafts were patent. She also history of bilateral femoral endarterectomy, bilateral common and external iliac stents. She quit smoking in February 2013. Patient is on aspirin. Hold Plavix as patient is started on Lovenox therapeutic dose Continue Lipitor. 5.? GERD on PPI. 6. DVT high risk: On therapeutic dose of Lovenox Discharge medication reconciliation done. Discharge follow-up instructions completed. Discharge process discussed with the patient and all questions were answered to patient's satisfaction. Discharge to [facility] Total time spent, exact 35 minutes on discharge meds reconciliation, examination, coordination of care with nurses and ancillary staff, review of imaging and blood test and discussion with the patient on follow-up instructions. Living will/advanced directive/end of life care: Patient does not have living will or advanced directive. Daughter is next to kin. After discussion of benef its/risks procedures involved with full code, DNR CC arrest and DNR CC, the patient opted for DNR CC arrest with no intubation in the first 2 days but she changed her mind DNR CCA with intubation. Stated she does not want CPR. Chest X-Ray 01/24/22 11:34 IMPRESSION: Hyperexpanded lungs without a superimposed acute pulmonary process, no interval change Liver Ultrasound 01/24/22 20:53 IMPRESSION: Mass at the upper pole the right kidney suggesting neoplasm. CT scan recommended for further evaluation. Chest X-Ray 01/25/22 00:00 IMPRESSION: Stable mild cardiomegaly. No acute cardiopulmonary disease. 2D echo Sep 2021 Left ventricular systolic function is hyperdynamic. The estimated ejection fraction is 75 %. The left atrium is mildly enlarged. Trivial mitral valve insufficiency. Trivial tricuspid valve insufficiency. Right ventricular systolic pressure estimated to be 53 mmHg. Diastolic function is indeterminate. Agitated saline contrast study faintly positive for right to left interatrial shunt potentially compatible with a small PFO versus ASD. Late peaking spectral Doppler pattern near the left ventricular outflow track approaching 2 m/s (peak gradient 16 mmHg) appearing compatible with a hyperdynamic state. Medications at Discharge Home Medications albuterol sulfate 90 mcg/actuation aerosol inhaler 2 puff inhalation Q6H PRN PRN Sob &/Or Wheezing 04/05/17 gabapentin 600 mg tablet 800 mg PO TIDCM PAIN 04/05/17 budesonide 0.5 mg/2 mL suspension for nebulization 0.5 mg inhalation BID COPD 08/21/17 amlodipine 2.5 mg tablet 2.5 mg PO DAILY bp 05/29/19 albuterol sulfate 2.5 mg/3 mL (0.083 %) solution for nebulization 2.5 mg (3 mL) inhalation Q2H PRN PRN DYSPNEA 06/01/19 acetaminophen 500 mg tablet 1,000 mg PO Q6H PRN PRN Pain Score 1-3/10 06/16/19 ondansetron 4 mg disintegrating tablet 4 mg PO Q8H PRN PRN NAUSEA #21 tabs 06/16/19 atorvastatin 20 mg tablet 20 mg PO QHS cholesterol 01/29/20 clopidogrel 75 mg tablet 75 mg PO DAILY antiplatelet 01/29/20 pantoprazole 40 mg tablet,delayed release 40 mg PO DAILY GERD 01/29/20 promethazine 25 mg tablet 25 mg PO Q6H PRN PRN Nausea 01/29/20 fluticasone fur. 100 mcg-umeclid 62.5 mcg-vilant 25 mcg inhalat.powder (Trelegy Ellipta) 1 inh inhalation DAILY copd 01/24/22 polyethylene glycol 3350 17 gram oral powder packet 17 g PO BID stool 01/24/22 sennosides 8.6 mg-docusate sodium 50 mg tablet (Stool Softener-Stimulant Laxative) 1 tab PO DAILY BM 01/24/22 albuterol sulfate 2.5 mg/3 mL (0.083 %) solution for nebulization 2.5 mg (3 mL) inhalation Q2H PRN PRN shortness of breath #0 mL 01/29/22 aspirin 81 mg tablet,delayed release 81 mg PO BREAKFAST #0 tabs 01/29/22 losartan 100 mg tablet 50 mg PO DAILY bp #30 tabs 01/29/22 metoprolol tartrate 25 mg tablet 75 mg PO TID #0 tabs 01/29/22 mirtazapine 30 mg tablet 30 mg PO QHS #0 tabs 01/29/22 oseltamivir 75 mg capsule 75 mg PO BID #0 caps 01/29/22 polyethylene glycol 3350 17 gram oral powder packet 17 g PO DAILY #0 ea 01/29/22 Physical Exam Narrative Patient has moved her bowel. Physical exam General: Awake, sitting position, on BiPAP, Oriented x3. Severe malnutrition. No fever HEENT: Atraumatic, PERRLA, EOMI, Normocephalic Oral: On BiPAP Neck: Supple, No JVD, Negative Carotid Bruits Chest wall/lungs: Kyphotic spine. Air entry severely diminished in bilateral lungs. hypoxia. Expiratory rhonchi no crepitation/rhonchi Cardiovascular: Sinus rhythm heart rate in the 80s, Normal S1, Normal S2, No murmurs Abdomen: Soft, nondistended. Midline abdominal scar. No tenderness, no guarding/rigidity. Bowel Sounds sluggish. : No renal angle tenderness. No suprapubic tenderness. Extremities: No edema, Capillary Refill Less than 3 Seconds Skin: No rashes, No breakdown Musculoskeletal: No Tenderness to Palpation of Joints or Extremities. Moderate atrophy of muscles of extremities. Left AKA Neurological: Cranial nerves II-XII grossly intact, DTR 2+/4 and Symmetrical Psych/Mental Status: Ill-appearing, distress. Weight / BMI Weight Weight: 131 lb 2.801 oz Body Mass Index (BMI) 26.6 ABG / Lab / Microbiology Data Result Diagrams: 01/25/22 04:15 01/27/22 04:00 Laboratory: Laboratory Results - last 24 hr 01/30/22 21:55: POC Glucose 105 01/31/22 07:49: POC Glucose 86 01/31/22 08:06: POC Glucose 87 01/31/22 11:55: POC Glucose 106 Microbiology: Microbiology 01/25/22 16:55 Urine Catheter - Myers Legionella Antigen - Final 01/25/22 16:55 Urine Catheter - [place] Streptococcus pneumoniae Antigen (M - Final 01/25/22 08:55 Mucosa - Nose Respiratory Panel (PCR) - Final Influenza A (Subtype H1) 01/24/22 11:30 Nasal Secretion SARS-CoV-2 & FLU Antigen (Rapid) - Final D/C Instructions Discharge Diet: No restrictions Weight Bearing Status: Weight bearing as tolerated Call your doctor if you observe: - (Discharged to inpatient hospice care.) Meaningful Use Info Meaningful Use Diagnoses (Choose all that apply): None applicable Discharge Plan Admission Admit Date/Time: 01/24/22 13:48 Primary Reason for Your Visit: Acute on chronic combined respiratory failure. Hyponatremia. Attending Provider: David Trujillo Primary Care Provider: Irasema Jonas Consulting Providers: Nguyen Cunningham ; Eris Reyes ; Evie Jamison ; Demi Ceballos ; Lela Paz HOTEL AND DINING ROOM CASHIER ; Per Sanford ; Torres Benton ; Clayton Chu ; Pedrito Lunsford ; Dora Deal HOTEL [employer] DINING ROOM CASHIER ; Daniella Guerrero Instructions Additional Instructions / Restrictions: Discharge on BiPAP. Will need to be evaluated for transfer to inpatient hospice care once he completes Tamiflu, total 6 doses left Discharge Orders/Prescriptions Prescriptions: New albuterol sulfate 2.5 mg /3 mL (0.083 %) Solution For Nebulization 2.5 mg inhalation Q2H PRN PRN (Reason: shortness of breath) Qty: 0 0RF polyethylene glycol 3350 17 gram Powder In Packet 17 g PO DAILY Qty: 0 0RF aspirin 81 mg Tablet,Delayed Release (Dr/Ec) 81 mg PO BREAKFAST Qty: 0 0RF mirtazapine 30 mg Tablet 30 mg PO QHS Qty: 0 0RF oseltamivir 75 mg Capsule 75 mg PO BID Qty: 0 0RF metoprolol tartrate 25 mg Tablet 75 mg PO TID Qty: 0 0RF Continued gabapentin 600 MG tablet 800 mg PO TIDCM albuterol sulfate 1 PUFF inhaler 2 puff inhalation Q6H PRN PRN (Reason: Sob &/Or Wheezing) budesonide 0.5 MG/2 ML suspension for nebulization 0.5 mg inhalation BID amlodipine 2.5 MG tablet 2.5 mg PO DAILY albuterol sulfate 2.5 MG/3 ML solution for nebulization 2.5 mg inhalation Q2H PRN PRN (Reason: DYSPNEA) 0RF acetaminophen 500 MG tablet 1,000 mg PO Q6H PRN PRN (Reason: Pain Score 1-3/10) 0RF ondansetron 4 MG tablet 4 mg PO Q8H PRN PRN (Reason: NAUSEA) Qty: 21 0RF promethazine 25 MG tablet 25 mg PO Q6H PRN PRN (Reason: Nausea) pantoprazole 40 MG tablet 40 mg PO DAILY atorvastatin 20 MG tablet 20 mg PO QHS clopidogrel 75 MG tablet 75 mg PO DAILY Leann Foy 100-62.5-25 mcg blister with device 1 inh INHALATION DAILY Label Comments: inhale 1 puff by mouth and INTO THE LUNGS once daily sennosides-docusate sodium [Stool Softener-Stimulant Laxat] 8.6-50 mg tablet 1 tab PO DAILY polyethylene glycol 3350 17 gram powder in packet 17 g PO BID Changed losartan 100 mg tablet 50 mg PO DAILY Qty: 30 0RF Discontinued metoprolol tartrate 50 mg tablet 50 mg PO TID aspirin 81 MG tablet,chewable 81 mg PO BID Qty: 20 0RF Referrals / Follow Up: Irasema Jonas MD [Primary Care Provider] - Disposition Disposition (needs filled in before D/C Order can be placed): [facility] Charges/Coding Visit Charges Inpatient E&M: 84634 Disch Hosp
[2022-01-31] MEDS: Acetaminophen 500 MG Tablet 1000 MG PO (13:41)
[2022-01-31] MEDS: Bisacodyl 5 MG Tablet PO (13:41)
[2022-01-31] MEDS: oxyCODONE 5 MG Tablet PO (13:43)
--- NOTE | 2022-01-31 14:02 | CASEMGMT ---
Discharge Fingerer This keno writer/runner sent d/c orders to [facility] will transport patient with a peanut picker time of 4:30. Nursing staff made aware. Cristina CARRILLO Medical Collections Representative
--- NOTE | 2022-01-31 14:10 | CASEMGMT ---
Patient is ready for discharge to [place] under [facility]. YASMIN spoke with Tosha at [facility]osp[facility] and the bipap will be delivered by 4p today. YASMIN faxed orders to Hospice. Shanelle arranged for patient to get picked up at 430 via cot. YASMIN notified [facility]osp[facility]. YASMIN also notified patient and her daughter. YASMIN completed a PASRR in [employer] system. Shanelle d/c planning analyst was managing patient's discharge. Plan: d/c to [facility] under intermediate level of care with [facility]. [facility]. Carolyn RUIZ
--- NOTE | 2022-01-31 14:30 | NURSING ---
Report called to nurse Prak[facility] for pt to be d/c under [facility].
--- NOTE | 2022-01-31 16:28 | NURSING ---
[facility] call to inform us that pt's p/u time of 1630 has been pushed back to 1730 or so.
[2022-01-31] MEDS: Ondansetron 4 MG/2 ML Vial IV (16:55)
== END 2022-01-31 17:54 | DRG 308 ==
LOC: ED 15:04 → PCU 15:23 → ICU 01-26 11:27 → PCU 01-30 13:17
PROVIDERS: Internal Medicine; Internal Medicine Nephrology; Nurse Practitioner Adult Health; Admitting Provider Internal Medicine; Emergency Provider Emergency Medicine; PCP Internal Medicine; Visit Provider Internal Medicine
DX: I48.91 Unspecified atrial fibrillation (principal); J96.22 Acute and chronic respiratory failure with hypercapnia; J96.21 Acute and chronic respiratory failure with hypoxia; J44.0 Chronic obstructive pulmonary disease with (acute) lower respiratory infection; E87.1 Hypo-osmolality and hyponatremia; E87.29 Other acidosis; J44.1 Chronic obstructive pulmonary disease with (acute) exacerbation; J96.11 Chronic respiratory failure with hypoxia; D69.6 Thrombocytopenia, unspecified; I11.0 Hypertensive heart disease with heart failure; E11.51 Type 2 diabetes mellitus with diabetic peripheral angiopathy without gangrene; E11.42 Type 2 diabetes mellitus with diabetic polyneuropathy; G40.909 Epilepsy, unspecified, not intractable, without status epilepticus; I47.1 Supraventricular tachycardia; E11.22 Type 2 diabetes mellitus with diabetic chronic kidney disease; E11.65 Type 2 diabetes mellitus with hyperglycemia; N18.31 Chronic kidney disease, stage 3a; E11.21 Type 2 diabetes mellitus with diabetic nephropathy; D64.9 Anemia, unspecified; E78.5 Hyperlipidemia, unspecified; K21.9 Gastro-esophageal reflux disease without esophagitis; F41.9 Anxiety disorder, unspecified; E87.6 Hypokalemia; E87.5 Hyperkalemia; J10.1 Influenza due to other identified influenza virus with other respiratory manifestations; E86.9 Volume depletion, unspecified; Z79.51 Long term (current) use of inhaled steroids; Z66 Do not resuscitate; Z82.3 Family history of stroke; Z87.891 Personal history of nicotine dependence; R77.8 Other specified abnormalities of plasma proteins; Z51.5 Encounter for palliative care; Z79.82 Long term (current) use of aspirin; N28.89 Other specified disorders of kidney and ureter; Z79.02 Long term (current) use of antithrombotics/antiplatelets; Z86.39 Personal history of other endocrine, nutritional and metabolic disease; Z86.79 Personal history of other diseases of the circulatory system; Z99.89 Dependence on other enabling machines and devices
CPT/HCPCS: 36415; 36600; 71045; 76705; 80048; 80053; 80061; 81001; 82533; 82803; 82962; 83605; 83735; 83935; 84100; 84133; 84295; 84300; 84439; 84443; 84484; 85025; 85610; 85730; 87426; 87428; 87449; 87633; 87635; 93005; 94002; 94003; 94640; 94660; 94762; 99285; J7030; A4216; J0153; J2405; U0003; U0005